=== PATIENT | female | born 1940 | race Caucasian/White ===

== ENCOUNTER → 2018-07-23 11:52 | Outpatient (CLI) | payer MEDICARE, OTHER, SELFPAY ==
[2018-07-23 09:49] VITALS: BMI 25.7
[2018-07-23 14:08] LABS: Absolute Lymphocyte Count 1.84 X10^3/ul (0.83-4.51); Absolute Neutrophil Count 4.8 X10^3/uL (2.0-7.7); Basophil# 0.07 X10^3/uL; Basophil% 0.9 % (0-1); Eosinophil# 0.26 X10^3/uL; Eosinophils% 3.4 % (0-5); Hematocrit 40.6 % (37-47); Hemoglobin 13.2 g/dl (12.0-15.0); Lymphocyte # 1.84 X10^3/ul (4.0); Lymphocyte % 23.8 % (19-41); Mean Corp Hgb Conc 32.5 g/gl (32-36); Mean Corpuscular Hgb 31.1 pg (27.0-32.0); Mean Corpuscular Volume 95.8 fL (81-99); Mean Platelet Vol. 11.5 fl (6.2-12.0); Monocyte# 0.72 X10^3/uL; Monocyte% 9.3 % (0-10); Neutrophil # 4.81 X10^3/uL (2.7-7.7); Neutrophil % 62.3 % (47-70); POSITIVE COUNT NO; POSITIVE DIFFERENTIAL NO; POSITIVE MORPHOLOGY NO; Platelet Count 230 K/mm3 (150-450); RBC Distribution Width CV 13.6 % (11.6-14.6); RBC Distribution Width SD 45.6 fl (35.1-43.9); Red Blood Count 4.24 M/mm3 (4.2-5.4); White Blood Count 7.7 K/mm3 (4.4-11.0)
[2018-07-23 14:22] LABS: Anion Gap 8 (5-15); BUN 21 mg/dL (7-18); BUN/Creat Ratio 15.3 RATIO (10-20); Calcium,Total 9.1 mg/dL (8.5-10.1); Chloride 108 mmol/L (98-107); Creatinine, Serum 1.37 mg/dL (0.55-1.02); EST Glomerular Filtration Rate 40 mL/min (>60); Est Glom Filt Rate - Afr Amer 48 mL/min (>60); Glucose 87 mg/dL (74-106); Sodium Level 143 mmol/L (136-145)
== END ==
PROVIDERS: Family Provider Family Medicine; PCP Family Medicine; Referring Provider Internal Medicine Cardiovascular Disease; Visit Provider Internal Medicine Cardiovascular Disease
DX: R06.09 Other forms of dyspnea (principal); R07.9 Chest pain, unspecified
CPT/HCPCS: 36415; 80048; 85025

== ENCOUNTER 2018-07-30 06:54 | Day surgery (SDC) | payer MEDICARE, OTHER, SELFPAY ==
[2018-07-23 09:49] VITALS: BMI 25.7
--- NOTE | 2018-07-23 11:24 | RAD_ITS ---
STUDY: X-RAY CHEST REASON FOR EXAM: Female, 77 years old. Shortness of breath, pain and cough for one week. TECHNIQUE: PA and lateral chest COMPARISON: 04/30/2017 FINDINGS: Generalized pulmonary hyperlucency and hyperinflation suggesting underlying COPD. Correlate any smoking history. Lungs otherwise acutely clear. Normal cardiomediastinal silhouette, franklin and pleural margins. No acute osseous or upper abdominal process. Scoliosis. Cholecystectomy. RAD/Chest PA and Lateral IMPRESSION: No acute cardiopulmonary process. Electronically Signed: Duane Jones MD at 17:59 EST Tel , Service support ,
[2018-07-29 08:42] VITALS: BMI 25.7
--- NOTE | 2018-07-30 08:39 | CL.D_ITS ---
Patient Name: Mannie PAL Study Date: 07/30/2018 Performing: José Allison MD Ht: 62.99 inches 160 cm : 1940 Wt: 145.51 lbs 66 kg Age: 77 Gender: female BSA: 1.69 PROCEDURE(S) PERFORMED [id number]-MPA/COR/LV CLINICAL PROFILE AND INDICATIONS Indications: Suspected CAD Heart Failure: None Stress/Imaging Stress Test w/SPECT MPI: Yes Result: IndeterminantStress Test with SPECT MPI: Inde terminant CAD Presentations: Symptom unlikely to be ischemic. CONCLUSIONS Normal coronary arteries Normal LV size, wall motion,and systolic function RECOMMENDATIONS Medical therapy DESCRIPTION OF PROCEDURE The patient arrived to the procedure lab. The risks and benefits of the procedure as well as a full d escription of our services here and current unavailability of surgical backup were fully explained to the patient and/or their significant other prior to the catheterization. The Timeout was completed, verifying the correct patient and procedure. The patient's procedural site was prepped and draped in the usual fashion. Local anesthetic was given subcutaneously to right radial region with Lidocaine 2% . Using a modified Seldinger technique, arterial access was obtained via the right radial artery, a 6 Fr sheath was inserted. Left Coronary Artery selective angiography was performed in multiple views u sing a 5 Fr. 4.0 [place] catheter. Right Coronary Artery selective angiography was then performed in mu ltiple views using a 5 Fr. 4.0 [place] catheter. Left Ventriculography was performed in MONTERROSO projection using a 5 Fr. Pigtail catheter. LV to AO pullback pressures were then recorded.The arterial sheath was pulled and a TR Band was applied for hemostasis 14cc air CORONARY ANGIOGRAPHY DOMINANCE: Right Dominant LEFT HEART ASSESSMENT Left Ventricular Ejection Fraction: by LV Gram 60 % Normal LV wall motion Normal Left Ventricular systolic function Normal Left Ventricular systolic function LEFT MAIN: Angiographically normal LEFT ANTERIOR DECENDING ARTERY: Angiographically normal CIRCUMFLEX ARTERY: Angiographically normal RIGHT CORONARY ARTERY: Angiographically normal COMPLICATIONS No Complications PROCEDURE MEDICATIONS Fentanyl 50 mcg IV Versed 1 mg IV Oxygen: 2 L/min via nasal cannula Heparin diluted in 23cc Heparinized saline. Patient given 3.3cc IA of this solution. 07/30/2018 08:18 :37 Verapamil 2.5mg, Ntg 100mcgs, 2000 units of Heparin diluted in 23cc Heparinized saline. Patient give n 3.3cc IA of this solution. 07/30/2018 08:18:37 SUMMARY OF HEMODYNAMIC DATA Time AIR REST ECG 07:17:46 AO 112/64 (85) SA 08:21:00 LV 127/-3, 6 08:26:51 LV 117/-4, 8 08:26:58 LV 99/0, 8 08:29:04 LV 96/0, 8 08:29:11 LVp 113/-1, 9 08:29:16 AOp 117/59 (85) 08:29:21 Signed By José Allison MD On 07/30/2018 08:38:29 José Allison MD
== END 2018-07-30 11:35 | disposition home or self-care (01) ==
LOC: CLSP 06:55
PROVIDERS: Family Provider Family Medicine; PCP Family Medicine; Referring Provider Internal Medicine Cardiovascular Disease; Visit Provider Internal Medicine Cardiovascular Disease
DX: R07.9 Chest pain, unspecified (principal); R06.02 Shortness of breath; E78.5 Hyperlipidemia, unspecified; I12.9 Hypertensive chronic kidney disease with stage 1 through stage 4 chronic kidney disease, or unspecified chronic kidney disease; N18.3 Chronic kidney disease, stage 3 (moderate); I45.10 Unspecified right bundle-branch block; K21.9 Gastro-esophageal reflux disease without esophagitis; K44.9 Diaphragmatic hernia without obstruction or gangrene; I34.0 Nonrheumatic mitral (valve) insufficiency; Z85.038 Personal history of other malignant neoplasm of large intestine; Z86.2 Personal history of diseases of the blood and blood-forming organs and certain disorders involving the immune mechanism; Z87.19 Personal history of other diseases of the digestive system; Z79.82 Long term (current) use of aspirin; Z79.899 Other long term (current) drug therapy
CPT/HCPCS: 71046; 93458; 99152; 99153; J7040; C1769; C1894; Q9967

== ENCOUNTER 2020-01-31 11:14 | Observation (INO) | payer MEDICARE, OTHER, SELFPAY ==
[2019-04-09 15:23] VITALS: BMI 25.3
[2020-01-31 11:15] VITALS: BP 152/86; PULSE 69; RESP 16; TEMP 35.8; O2SAT 95; BMI 23.6
[2020-01-31 11:25] VITALS: BP 167/96; PULSE 65; RESP 17; O2SAT 95
--- NOTE | 2020-01-31 11:25 | CT_ITS ---
STUDY: CT BRAIN WITHOUT CONTRAST REASON FOR EXAM: Female, 79 years old. DIZZINESS -- HX-HTN,COLON CA RADIATION DOSAGE (If Supplied By Facility): CTDIvol = ( 44.99 ) mGy, DLP = ( 745.49 ) mGycm TECHNIQUE: Transaxial CT imaging of the brain was performed without administration of intravenous contrast material. Individualized dose optimization techniques were used for this CT. COMPARISON: No relevant priors. FINDINGS: Normal soft tissue structures. Normal calvarium. Normal size ventricles and extra-axial spaces for the patient''s age. Normal white matter tracts of the cerebral hemispheres. Normal basal ganglia and thalami. Normal brainstem. Normal cerebellum. There is no intracranial hemorrhage. There are no findings of an acute ischemic infarction. Normal visualized paranasal sinuses. CT/Brain/Head without Contrast IMPRESSION: No intracranial hemorrhage or mass effect. Electronically Signed: Guille Nagel MD (Brooks) at 12:22 EDT , Service support ,
--- NOTE | 2020-01-31 11:25 | EKG12_ITS ---
Test Reason : DIZZINESS Blood Pressure : / mmHG Vent. Rate : 061 BPM Atrial Rate : 061 BPM P-R Int : 174 ms QRS Dur : 130 ms QT Int : 454 ms P-R-T Axes : 052 010 048 degrees QTc Int : 457 ms Normal sinus rhythm Right bundle branch block Abnormal ECG Confirmed by JANIS PABON, UMA ([id number]), city editor DAYNA OLIVEIRA ([id number]) on 02/02/2020 9:03:43 AM Referred By: CATHI Confirmed By:UMA BRUCE MD
--- NOTE | 2020-01-31 11:27 | ED.DCSUM_ITS ---
History of Present Illness Informant: Patient, Significant Other Onset: Today Context: Sudden Onset Timing: Continuous Quality: dizziness Location: head Current Severity: Severe Maximum Severity: Severe Worsened by: movement Relieved by: nothing Associated Symptoms: nausea and vomiting Narrative: 79-year-old female presents to the emergency department with dizziness. She has a history of vertigo. She was unable to keep down her meclizine because she keeps vomiting. This started suddenly this morning when she woke up she was laying down in bed she rolled over and then had a sudden onset of room spinning sensation nausea and vomiting. She has tinnitus but this is chronic she states for the last 10 years and it is not worse than her baseline. No numbness tingling or weakness no difficulty with speech no head trauma she is not anticoagulated this feels like her previous vertigo episodes. She has felt well recently no recent illnesses no sick contacts no medication changes. Prior similar symptoms: Yes Recent Illness/Hospitalization: No <Dane Garcia - Last Filed: 01/31/20 14:38> <Farshad Paz - Last Filed: 01/31/20 14:58> Chief Complaint: Dizziness Past Medical History Prior records reviewed: Yes Past Medical History: - - Hypertension hyperlipidemia vertigo Surgical History: - - R hemicolectomy, Cholecystectomy. Lives: With Family Smoking Status: Never smoker Alcohol: None Drugs: None - Family History Maternal Family History: Family History (Last Reviewed 04/09/19 @ 15:[address] José Allison MD) Father Myocardial infarction, Onset Age: 48 Brother CVA (cerebral vascular accident) Mother CVA (cerebral vascular accident) Other CAD (coronary artery disease) Cancer Family History: Reports: - - Maternal family history of CT, coronary disease, colon cancer and stroke. Paternal Family History: Family History (Last Reviewed 04/09/19 @ 15:[address] José Allison MD) Father Myocardial infarction, Onset Age: 48 Brother CVA (cerebral vascular accident) Mother CVA (cerebral vascular accident) Other CAD (coronary artery disease) Cancer Family History: Reports: - - Paternal family history of heart disease with CT age 46. Sibling Family History: Family History (Last Reviewed 04/09/19 @ 15:[address] José Allison MD) Father Myocardial infarction, Onset Age: 48 Brother CVA (cerebral vascular accident) Mother CVA (cerebral vascular accident) Other CAD (coronary artery disease) Cancer Family History: Reports: - - Patient with a brother who passed secondary to a stroke and a sister who passed secondary to cancer noted to be lung and brain, unclear primary. <Dane Garcia - Last Filed: 01/31/20 14:38> - Family History Maternal Family History: Family History (Last Reviewed 04/09/19 @ 15:[address] José Allison MD) Father Myocardial infarction, Onset Age: 48 Brother CVA (cerebral vascular accident) Mother CVA (cerebral vascular accident) Other CAD (coronary artery disease) Cancer Paternal Family History: Family History (Last Reviewed 04/09/19 @ 15:[address] José Allison MD) Father Myocardial infarction, Onset Age: 48 Brother CVA (cerebral vascular accident) Mother CVA (cerebral vascular accident) Other CAD (coronary artery disease) Cancer Sibling Family History: Family History (Last Reviewed 04/09/19 @ 15:[address] José Allison MD) Father Myocardial infarction, Onset Age: 48 Brother CVA (cerebral vascular accident) Mother CVA (cerebral vascular accident) Other CAD (coronary artery disease) Cancer <Farshad Paz - Last Filed: 01/31/20 14:58> - Allergies and Home Meds Allergies/Adverse Reactions: Allergies Penicillins Allergy (Verified 01/31/20 11:25) selling rofecoxib [From Vioxx] Allergy (Verified 01/31/20 11:25) mouth sores Primary Care Physician: Chencho Emery MD [Primary Care Provider] - Review of Systems All systems negative except as indicated General: Denies: Chills, Fever, Sweats Eyes: Denies: Visual changes - bilaterally, Diplopia ENT: Denies: Rhinorrhea, Sore throat Cardiovascular: Denies: Chest pain, Palpitations Respiratory: Denies: Dyspnea, Cough, Dyspnea on exertion Gastrointestinal: Reports: Nausea, Vomiting. Denies: Abdominal pain, Diarrhea, Melena, Hematochezia Genitourinary: Denies: Dysuria, Hematuria, Frequency Musculoskeletal: Denies: Back pain, Swelling, Extremity Pain Skin: Denies: Rash, Wounds Neurological: Denies: Headache, Weakness, Parasthesia, Numbness <Dane Garcia - Last Filed: 01/31/20 14:38> Physical Exam Vital Signs/Narrative: Vital Signs Temp Pulse Resp BP Pulse Ox 01/31/20 11:25 65 17 167/96 H 95 01/31/20 11:15 96.5 F L 69 16 152/86 H 95 Inital Vital Signs reviewed: Yes General: Well nourished, Well developed, No Acute Distress Head: Normocephalic, Atraumatic Eyes: Perrl, EOMI, - - No nystagmus ENT: Moist mucous membranes, No rhinorrhea Neck: Supple, Nontender Cardiovascular: Regular rate, Regular rhythm, No murmurs Respiratory: No distress, CTA bilaterally, Chest nontender Abdomen: Soft, Nontender, Nondistended, Normal bowel sounds Back: Nontender, Normal Inspection Extremities: Nontender, No edema Skin: Normal color, No rash Neurological: Alert, Oriented x3, Cranial nerves II-XII grossly intact, Normal Strength, Normal Sensation Psychological: Normal affect, Normal Mood <Dane Garcia - Last Filed: 01/31/20 14:38> Vital Signs/Narrative: Vital Signs Temp Pulse Resp BP Pulse Ox 01/31/20 14:55 97.8 F 71 16 121/74 H 98 01/31/20 13:26 72 18 136/72 H 96 01/31/20 12:45 63 15 114/66 95 01/31/20 11:25 65 17 167/96 H 95 01/31/20 11:15 96.5 F L 69 16 152/86 H 95 <Farshad Paz - Last Filed: 01/31/20 14:58> Diagnostic/Tx/Re-eval Impressions Brain CT 01/31/20 11:25 IMPRESSION: No intracranial hemorrhage or mass effect. Electronically Signed: Guille Nagel MD (Brooks) at 12:22 EDT , Service support , 01/31/20 11:25 Brain/Head without Contrast [CT] Stat Laboratory Results 01/31/20 01/31/20 01/31/20 11:40 11:40 12:25 WBC 7.3 RBC 3.87 L Hgb 12.3 Hct 36.0 L MCV 93.0 MCH 31.8 MCHC 34.2 RDW Std Deviation 43.3 RDW Coeff of Raciel 12.8 Plt Count 261 MPV 9.9 Immature Gran % (Auto) 0.300 Neut % (Auto) 57.0 Lymph % (Auto) 31.2 [place] % (Auto) 8.7 Eos % (Auto) 1.6 Baso % (Auto) 1.2 H Absolute Neuts (auto) 4.2 Absolute Lymphs (auto) 2.27 Nucleated RBC % 0 Sodium 139 Potassium 3.9 Chloride 110 H Carbon Dioxide 24.0 Anion Gap 5 BUN 18 Creatinine 1.39 H Estim Creat Clear Calc 29.05 Est GFR (MDRD) Af Amer 47 L Est GFR (MDRD) Non-Af 39 L BUN/Creatinine Ratio 12.9 Glucose 120 H Calcium 9.1 Urine Color Yellow Urine Clarity Clear Urine pH 7.0 Ur Specific [place] 1.010 Urine Protein Negative Urine Glucose (UA) Normal Urine Ketones Negative Urine Occult Blood Negative Urine Nitrite Negative Urine Bilirubin Negative Urine Urobilinogen Normal Ur Leukocyte Esterase Negative Urine RBC 0 SEEN Urine WBC 0 SEEN Ur Squamous Epith Cells 0-5 SEEN Urine Bacteria 0 SEEN Urine Mucus 0 SEEN - Rhythm Strip Rhythm Strip: Sinus Rhythm Rate: 60 Ectopy: None - EKG Initial EKG Interpretation: Sinus Rhythm, No Acute Injury Pattern, RBBB Prior: Unchanged - Medical Decision Making Neurological exam is nonfocal. She has a normal stable vital signs. Patient was initially treated with a dose of IV Zofran and IV Ativan 0.[address] brain showed no acute findings. Laboratory work-up was unremarkable. Urinalysis unremarkable. Patient continued to feel dizzy and was vomiting. Given another dose of 1 mg IV Ativan. Repeat evaluation patient has no improvement. I gave her a dose of Zofran IV an d oral meclizine. Repeat evaluation no improvement at this point I discussed with the patient that she will require admission for intractable vertigo and she is agreeable. I spoke with the hospitalist. <Dane Garcia - Last Filed: 01/31/20 14:38> - Medical Decision Making Patient with a history of vertigo rolled over this morning and began to have a dizzy sensation and vomiting. Attempted relief with meclizine failed. Patient came to the emergency department received several doses of Ativan as well as meclizine. She continues to have vomiting and is unable to ambulate. Plan is admission. This point this appears to be a peripheral vertigo based on physical exam and not central. + Camas-Hallpike. History of same. I performed a history and physical examination of the patient and discussed management plan with the physician funeral assistant. I reviewed the physician funeral assistant's note and agree with the documented findings and plan of care. Farshad Paz DO, MS <Farshad Paz - Last Filed: 01/31/20 14:58> ED Disposition <Dane Garcia - Last Filed: 01/31/20 14:38> <Farshad Paz - Last Filed: 01/31/20 14:58> - Plan for ED Patient: Disposition: Acute Care [facility] Diagnosis: Intractable vertigo, Right bundle branch block (RBBB), Essential (primary) hypertension, Hyperlipidemia Referrals: Chencho Emery MD [Primary Care Provider] -
[2020-01-31] MEDS: Ondansetron 4 MG/2 ML Vial IV ×2 (11:36→13:21)
[2020-01-31] MEDS: LORazepam 2 MG/ML Syringe 0.5 MG IV (11:38)
[2020-01-31 11:50] LABS: Absolute Lymphocyte Count 2.27 X10^3/uL (0.83-4.51); Absolute Neutrophil Count 4.2 X10^3/uL (2.0-7.7); Basophil# 0.09 X10^3/uL; Basophil% 1.2 % (0-1); Eosinophil# 0.12 X10^3/uL; Eosinophils% 1.6 % (0-5); Hemoglobin 12.3 g/dL (12.0-15.0); Lymphocyte # 2.27 X10^3/ul (4.0); Lymphocyte % 31.2 % (19-41); Mean Corp Hgb Conc 34.2 g/dL (32-36); Mean Corpuscular Hgb 31.8 pg (27.0-32.0); Mean Platelet Vol. 9.9 fl (6.2-12.0); Monocyte# 0.63 X10^3/uL; Monocyte% 8.7 % (0-10); NRBC Flagged by Analyzer 0 % (0-5); Neutrophil # 4.15 X10^3/uL (2.7-7.7); Platelet Count 261 K/mm3 (150-450); RBC Distribution Width CV 12.8 % (11.6-14.6); RBC Distribution Width SD 43.3 fl (35.1-43.9); Red Blood Count 3.87 M/mm3 (4.2-5.4); White Blood Count 7.3 K/mm3 (4.4-11.0)
[2020-01-31 12:27] LABS: Anion Gap 5 (5-15); BUN 18 mg/dL (7-18); BUN/Creat Ratio 12.9 RATIO (10-20); Calcium,Total 9.1 mg/dL (8.5-10.1); Chloride 110 mmol/L (98-107); Creatinine, Serum 1.39 mg/dL (0.55-1.02); EST Glomerular Filtration Rate 39 mL/min (>60); Est Glom Filt Rate - Afr Amer 47 mL/min (>60); Estimated Creatinine Clearance 29.05 ml/min; Glucose 120 mg/dL (74-106); Potassium 3.9 mmol/L (3.5-5.1); Sodium Level 139 mmol/L (136-145)
[2020-01-31 12:29] LABS: Bacteria 0 SEEN /hpf (None Seen); Mucous, Urine 0 SEEN /hpf (<or=2+); Red Blood Cells-Urine 0 SEEN /hpf (0-5); White Blood Cells 0 SEEN /hpf (0-5)
[2020-01-31 12:30] LABS: Color, Urine Yellow (Yellow); Glucose, Dipstick Normal (Normal); Ketone-Dipstick Negative (Negative); Leukocyte Esterase-Dipstick Negative /ul (Negative); Nitrite-Dipstick Negative (Negative); Occult Blood-Urine Negative /ul (Negative); Protein-Dipstick Negative (Negative); Urine Bilirubin Dipstick Negative (Negative); Urine Clarity Clear (Clear); Urine Urobilinogen Normal (Normal)
[2020-01-31 12:35] LABS: Squamous Epithelial Cells - UA 0-5 SEEN /hpf (5-10)
[2020-01-31] MEDS: LORazepam 2 MG/ML Syringe 1 MG IV (12:37)
[2020-01-31 12:45] VITALS: BP 114/66; PULSE 63; RESP 15; O2SAT 95
[2020-01-31] MEDS: Meclizine HCl 25 MG Tablet PO (13:24)
[2020-01-31 13:26] VITALS: BP 136/72; PULSE 72; RESP 18; O2SAT 96
[2020-01-31] MEDS: diazePAM 5 MG Tablet 2.5 MG PO (14:50)
[2020-01-31] MEDS: proMETHazine 25 MG/ML Syringe 6.25 MG IV (14:50)
--- NOTE | 2020-01-31 14:51 | PCM.HP.STD ---
Problem List (1) Vertigo Status: Acute (2) Right bundle branch block (RBBB) Status: Chronic (3) Hyperlipidemia Status: Chronic (4) Essential (primary) hypertension Status: Chronic History of Present Illness Date of Admission: 01/31/20 Chief Complaint: dizziness The patient is a 79 year old F who was in her normal state of health until this morning where patient was very dizzy. Patient felt the room spinning and stated that in the corners of her eyes she saw some flashes of light but denied any flashes of light within her central field of vision. Patient states that movement makes it worse and she has been having nausea and vomiting. Patient received meclizine without help. Patient also received lorazepam with minimal effect. The hospitalist service was contacted for admission. Patient has had a history of dizziness and is on meclizine as needed at home but is never been to this severe degree. [] Past Medical History Past Medical History (Chronic Problems): Chronic Problems (Last Reviewed 04/09/19 @ 15:[address] José Allison MD) Right bundle branch block (RBBB) (Chronic) Hyperlipidemia (Chronic) Essential (primary) hypertension (Chronic) Medical History: Medical History (Last Reviewed 01/31/20 @ 14:[address] 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 [Ecotrin] 81 mg PO DAILY@0800 tab 05/01/17 hydrochlorothiazide 25 mg tablet 25 mg PO DAILY #90 tab 04/09/19 lisinopril 20 mg tablet 20 mg PO DAILY #90 tab 04/09/19 meclizine 12.5 mg tablet 12.5 mg PO BID-TID PRN 04/09/19 multivit with 1 tab PO DAILY 04/09/19 npvrwfnc-edpq-UA-lutein 8 mg iron-400 mcg-300 mcg tablet omeprazole 20 mg capsule,delayed 20 mg PO DAILY #90 cap 04/09/19 release Carvedilol 25 mg PO BID 01/31/20 Surgical History: Surgical History (Last Reviewed 04/09/19 @ 15:[address] José Allison MD) H/O right hemicolectomy Z90.49 History of left heart catheterization Onset Date: 07/30/18 Z98.890 Hx of cholecystectomy Z90.49 Surgical History: - - R hemicolectomy, Cholecystectomy. Psychiatric History: No pertinent psych hx SPINE SPECIALIST History: No pertinent SPINE SPECIALIST history Lives: With Family Smoking Status: Never smoker Alcohol: None Drugs: None - *Family History Maternal Family History: Family History (Last Reviewed 01/31/20 @ 14:[address] Nicholas Mclain DO) Father Myocardial infarction, Onset Age: 48 Brother CVA (cerebral vascular accident) Mother CVA (cerebral vascular accident) Other CAD (coronary artery disease) Cancer History Items: - - Maternal family history of [place], coronary disease, colon cancer and stroke. Paternal Family History: Family History (Last Reviewed 01/31/20 @ 14:[address] Nicholas Mclain DO) Father Myocardial infarction, Onset Age: 48 Brother CVA (cerebral vascular accident) Mother CVA (cerebral vascular accident) Other CAD (coronary artery disease) Cancer History Items: - - Paternal family history of heart disease with [place] age 46. Sibling Family History: Family History (Last Reviewed 01/31/20 @ 14:[address] Nicholas Mclain DO) Father Myocardial infarction, Onset Age: 48 Brother CVA (cerebral vascular accident) Mother CVA (cerebral vascular accident) Other CAD (coronary artery disease) Cancer History Items: - - Patient with a brother who passed secondary to a stroke and a sister who passed secondary to cancer noted to be lung and brain, unclear primary. Review of Systems Constitutional: Denies: Anorexia, Chills, Fever Eyes: Reports: - - room spinning. Denies: Blurred vision, Double vision HEENT: Denies: Head Aches, Sinus Congestion, Sinus Drainage Cardiovascular: Denies: Chest Pain, Palpitations Respiratory: Denies: Cough, Shortness of breath at rest, Sputum production Gastrointestinal: Denies: Abdominal Pain, Nausea, Vomiting Genitourinary: Denies: Dysuria Musculoskeletal: Denies: Joint Pain, Joint Tenderness Skin: Denies: Rash, Wounds Neurological: Denies: Numbness, Tingling, Focal weakness Psychiatric: Denies: Anxiety, Depression Hematologic/ Lymphatic: Denies: Easy Bruising, Easy Bleeding, Hx of blood clot Comment: All review of systems were negative except as mentioned above in the history of present illness and the other review of systems. VTE Information - Inpt Only VTE Present on Admission: No VTE Mechan Device Prophylaxis: None VTE Pharm Prophylaxis ordered?: No Reason prophylaxis not ordered:: Treatment Not Indicated Patient Problems: Active and Suspected Problems (Last Reviewed 04/09/19 @ 15:[address] José Allison MD) Vertigo (Acute) - Physical Exam Vitals/I&O's: Vital Signs Temp Pulse Resp BP Pulse Ox 35.8 C L 72 18 136/72 H 96 01/31/20 11:15 01/31/20 13:26 01/31/20 13:26 01/31/20 13:26 01/31/20 13:26 Oxygen Delivery Method Room Air Weight: 64.4 kg Body Mass Index (BMI) 23.6 Intake and Output for Last 24 Hours 01/29/20 01/30/20 01/31/20 23:59 23:59 23:59 Intake Total 500 / 500 Balance 500 / 500 General: Alert, No apparent distress HEENT: Atraumatic, PERRLA, EOMI, Normocephalic, - - Slight left lateral nystagmus Oral: Moist Mucosa, No Gingival or Mucosal Lesions/ Ulcerations Neck: No Nodes, Thyroid Normal Size and Texture Lungs: Clear to auscultation, Normal air movement, No rhonchi, No wheeze, No rales Cardiovascular: Regular rate, Regular Rhythm, Normal S1, Normal S2, No murmurs Abdomen: Bowel Sounds Present, Soft, Non Tender, Non-Distended, No Hepato-splenomegaly Extremities: No edema, No Calf Tenderness Skin: No rashes, No breakdown Neurological: Cranial nerves II-XII grossly intact, - - Lyons-Hallpike was performed and patient was able to lay flat with the left side but when but then started having increased dizziness and then having nausea and then subsequent vomiting. Was only attempted on the left and not on the right given that circumstance. Psych/Mental Status: Normal Affect, Appropriate Laboratory Results 01/31/20 11:40: WBC 7.3, RBC 3.87 L, Hgb 12.3, Hct 36.0 L, MCV 93.0, MCH 31.8, MCHC 34.2, RDW Std Deviation 43.3, RDW Coeff of Raciel 12.8, Plt Count 261, MPV 9.9, Immature Gran % (Auto) 0.300, Neut % (Auto) 57.0, Lymph % (Auto) 31.2, [place] % (Auto) 8.7, Eos % (Auto) 1.6, Baso % (Auto) 1.2 H, Absolute Neuts (auto) 4.2, Absolute Lymphs (auto) 2.27, Nucleated RBC % 0 01/31/20 11:40: Sodium 139, Potassium 3.9, Chloride 110 H, Carbon Dioxide 24.0, Anion Gap 5, BUN 18, Creatinine 1.39 H, Estim Creat Clear Calc 29.05, Est GFR (MDRD) Af Amer 47 L, Est GFR (MDRD) Non-Af 39 L, BUN/Creatinine Ratio 12.9, Glucose 120 H, Calcium 9.1 01/31/20 12:25: Urine Color Yellow, Urine Clarity Clear, Urine pH 7.0, Ur Specific [place] 1.010, Urine Protein Negative, Urine Glucose (UA) Normal, Urine Ketones Negative, Urine Occult Blood Negative, Urine Nitrite Negative, Urine Bilirubin Negative, Urine Urobilinogen Normal, Ur Leukocyte Esterase Negative, Urine RBC 0 SEEN, Urine WBC 0 SEEN, Ur Squamous Epith Cells 0-5 SEEN, Urine Bacteria 0 SEEN, Urine Mucus 0 SEEN Clinical Impression(s) from Imaging Studies Brain CT 01/31/20 11:25 IMPRESSION: No intracranial hemorrhage or mass effect. Electronically Signed: Guille Nagel MD (Brooks) at 12:22 EDT , Service support , Assessment/Plan All Active Problems (Last Reviewed 04/09/19 @ 15:[address] José Allison MD) Vertigo (Acute) 1. Acute vertigo: Exam consistent with a benign paroxysmal positional vertigo. Head CT here was negative. Given that position is exacerbating her symptoms, no feel any additional neurological work-up is necessary at this time. Plan is to treat her for this vertigo with meclizine, antiemetics and therapy for vestibular rehab. 2. Hypertension: Continue with carvedilol, HCTZ and lisinopril. 3. VTE prophylaxis: Low risk as patient is observation status and not indicated. OBSV E&M: [id number] Initial observation care L3
[2020-01-31 14:55] VITALS: BP 121/74; PULSE 71; RESP 16; TEMP 36.6; O2SAT 98
[2020-01-31 15:40] VITALS: BMI 24.8
[2020-01-31] MEDS: 0.9% Normal Saline 1,000 ML 150 ML IV (18:08)
[2020-01-31 20:52] VITALS: BP 134/74; PULSE 73; RESP 16; TEMP 37.1; O2SAT 98
[2020-01-31] MEDS: Carvedilol 25 MG Tablet PO (21:14)
[2020-01-31] MEDS: Meclizine 12.5 MG Tablet PO (21:14)
[2020-02-01 02:50] VITALS: BP 111/60; PULSE 73; RESP 18; TEMP 36.8; O2SAT 96
[2020-02-01 08:40] VITALS: BP 133/78; PULSE 71; RESP 18; TEMP 36.6; O2SAT 93
[2020-02-01] MEDS: Ondansetron 4 MG/2 ML Vial IV (08:42)
[2020-02-01] MEDS: 0.9% Saline Lock 10 ML Syringe IV (08:42)
[2020-02-01] MEDS: Acetaminophen 325 MG Tablet 650 MG PO (08:44)
[2020-02-01] MEDS: Meclizine 12.5 MG Tablet PO (08:44)
[2020-02-01] MEDS: Carvedilol 25 MG Tablet PO (08:46)
[2020-02-01] MEDS: Pantoprazole Sodium 20 MG Tablet PO (08:46)
--- NOTE | 2020-02-01 10:04 | NURSING ---
after AM meds were given at 0830, pt immediately vomited. clear liquids with no pills noted. will continue to monitor.
--- NOTE | 2020-02-01 14:18 | DCINST_ITS ---
- Discharge Diagnoses Current Active Problems: Current Active and Chronic Problems (Last Reviewed 01/31/20 @ 14:[address] Nicholas Mclain, DO) Vertigo (Acute) Right bundle branch block (RBBB) (Chronic) Hyperlipidemia (Chronic) Essential (primary) hypertension (Chronic) You will use the following diet at home:: Cardiac Your food should be the consistency of: Regular Your liquids should be the consistency of: Regular/Thin Discharge Activity: Use Walker Weight Bearing Status: Weight bearing as tolerated Call your doctor if you observe: Dizziness, Fainting spells Instructions: ED Vertigo Unspecified Allergies/Adverse Reactions: Allergies Penicillins Allergy (Verified 01/31/20 11:25) selling rofecoxib [From Vioxx] Allergy (Verified 01/31/20 11:25) mouth sores Medications to take at Discharge Aspirin E.C. [Ecotrin] 81 mg PO DAILY@0800 tab 05/01/17 hydrochlorothiazide 25 mg tablet 25 mg PO DAILY #90 tab 04/09/19 lisinopril 20 mg tablet 20 mg PO DAILY #90 tab 04/09/19 meclizine 12.5 mg tablet 12.5 mg PO BID-TID PRN 04/09/19 multivit with wellspud-pghh-IP-lutein 8 mg iron-400 mcg-300 mcg tablet 1 tab PO DAILY 04/09/19 omeprazole 20 mg capsule,delayed release 20 mg PO DAILY #90 cap 04/09/19 Carvedilol 12.5 mg PO BID 01/31/20 Primary Care Physician: Chencho Emery MD [Primary Care Provider] - Please follow up with your Primary Care Physician in: 1-2 weeks Test Results: Test results from this visit will be discussed in further detail at your follow- up appointment, if applicable. Please Follow Up With: Marco Powers MD When: 1-2 weeks for follow up for Vertigo Proposed Discharge Date: 02/01/20
--- NOTE | 2020-02-01 14:20 | DS.PCM_ITS ---
Discharge Date and Diagnosis - Problem List Patient Problems: Active and Suspected Problems (Last Reviewed 01/31/20 @ 14:[address] iNcholas Mclain DO) Vertigo (Acute) Date of Admission: 01/31/20 Date of Discharge: 02/01/20 - Primary Discharge Diagnosis Acute Problems: Active Problems (Last Reviewed 01/31/20 @ 14:[address] Nicholas Mclain DO) Vertigo (Acute) - Secondary Discharge Diagnosis Chronic Problems: Chronic Problems (Last Reviewed 01/31/20 @ 14:[address] Nicholas Mclain DO) Right bundle branch block (RBBB) (Chronic) Hyperlipidemia (Chronic) Essential (primary) hypertension (Chronic) Hospital Course and Treatment Imaging Results: Diagnostic Data Brain CT 01/31/20 11:25 IMPRESSION: No intracranial hemorrhage or mass effect. Electronically Signed: Guille Nagel MD (Brooks) at 12:22 EDT , Service support , Operations: None Procedures: None Summary of Care Provided: The patient is a 79 year old F with a past medical history of hypertension and hyperlipidemia was admitted through the ED on 01/31/2020 with a complaint of dizziness. She felt the room spinning and so some flashes of light in the corner of her eyes. Dizziness was aggravated by movement and said as soon as she moves her head she got dizzy and she had assisted nausea and vomiting. She received meclizine but this did not help when she came into the ED. Lorazepam also did not help so she was admitted to be managed for dizziness likely due to BPPV. Patient says she had a history of dizziness and BPPV and had been following up with ENT on outpatient basis. ET of the brain was negative for any acute intracranial pathology. She was admitted and put on meclizine and antiemetics and PT OT were also consulted. Patient symptom subsequently improved markedly and she wanted to go home the next day. She was evaluated by physical therapy and deemed to need a walker to help with her ambulation. Patient remained stable and was discharged home on 02/01/2020 with a prescription for a walker and also to have outpatient physical therapy vestibular therapy. She is follow-up with her primary care doctor and also to follow-up with ENT. Patient seen and examined prior to discharge. She had no complaints and felt well and was eager to be discharged. Review of systems otherwise negative. Labs and vitals reviewed. Home medication reviewed and reconciled. O/e: [] Vital Signs Temp Pulse Resp BP Pulse Ox 97.8 F 71 18 133/78 H 93 02/01/20 08:40 02/01/20 08:40 02/01/20 08:40 02/01/20 08:40 02/01/20 08:40 General: Alert, No apparent distress HEENT: Atraumatic, PERRLA, EOMI, Normocephalic, Oral: Moist Mucosa, No Gingival or Mucosal Lesions/ Ulcerations Neck: No Nodes, Thyroid Normal Size and Texture Lungs: Clear to auscultation, Normal air movement, No rhonchi, No wheeze, No rales Cardiovascular: Regular rate, Regular Rhythm, Normal S1, Normal S2, No murmurs Abdomen: Bowel Sounds Present, Soft, Non Tender, Non-Distended, No Hepato-splenomegaly Extremities: No edema, No Calf Tenderness Skin: No rashes, No breakdown Neurological: Cranial nerves II-XII grossly intact, power 5/5/ in all extremities. Psych/Mental Status: Normal Affect, Appropriate Plan is for discharge home today. She is to continue taking meclizine for her dizziness and BPPV. Patient Problems: Active and Suspected Problems (Last Reviewed 01/31/20 @ 14:[address] Nicholas Mclain, DO) Vertigo (Acute) - Physical Exam Vitals/I&O's: Vital Signs Temp Pulse Resp BP Pulse Ox 97.8 F 71 18 133/78 H 93 02/01/20 08:40 02/01/20 08:40 02/01/20 08:40 02/01/20 08:40 02/01/20 08:40 Oxygen Delivery Method Room Air Weight: 149 lb 4.047 oz Body Mass Index (BMI) 24.8 Intake and Output for Last 24 Hours 01/30/20 01/31/20 02/01/20 23:59 23:59 23:59 Intake Total 650 / 750 1400 / 1400 Output Total 850 / 850 Balance 650 / 250 550 / 550 Current Medications Acetaminophen (Tylenol) 650 mg PO Q6H PRN PRN PRN Reason: Pain Score 1-10/Temp > 100.7 F Last Admin: 02/01/20 08:44 Dose: 650 mg Documented by: Acetaminophen (Tylenol) 650 mg RECTAL Q4H PRN PRN PRN Reason: Pain Score 1-10/Temp > 100.7 F Aspirin (Ecotrin) 81 mg PO DAILY@0800 REPLACED BY [facility] Last Admin: 02/01/20 08:45 Dose: Not Given Documented by: Carvedilol (Coreg) 25 mg PO BID REPLACED BY [facility] Last Admin: 02/01/20 08:46 Dose: 25 mg Documented by: Hydrochlorothiazide (Hctz) 25 mg PO DAILY REPLACED BY [facility] Lisinopril (Zestril) 20 mg PO DAILY REPLACED BY [facility] Meclizine HCl (Antivert) 12.5 mg PO Q8H PRN PRN PRN Reason: Vertigo Last Admin: 02/01/20 08:44 Dose: 12.5 mg Documented by: Multivitamins/Minerals (Multivitamin With Minerals (Bkc)) 1 tablet PO DAILY@0800 REPLACED BY [facility] Ondansetron HCl (Zofran) 4 mg IV Q8H PRN PRN PRN Reason: NAUSEA/VOMITING Last Admin: 02/01/20 08:42 Dose: 4 mg Documented by: Pantoprazole Sodium (Protonix) 20 mg PO DAILY REPLACED BY [facility] Last Admin: 02/01/20 08:46 Dose: 20 mg Documented by: Prochlorperazine Edisylate (Compazine Iv) 5 mg IV Q4H PRN PRN PRN Reason: Breakthrough nausea/vomiting Sodium Chloride () 10 - 40 ml IV UD PRN PRN Reason: SALINE FLUSH Last Admin: 02/01/20 08:42 Dose: 10 ml Documented by: Discharge Diet: Low fat/ Low Cholesterol Discharge Activity: Use Walker Weight Bearing Status: Weight bearing as tolerated Call your doctor if you observe: Dizziness, Fainting spells Home Medications: Medications to take at Discharge Aspirin E.C. [Ecotrin] 81 mg PO DAILY@0800 tab 05/01/17 hydrochlorothiazide 25 mg tablet 25 mg PO DAILY #90 tab 04/09/19 lisinopril 20 mg tablet 20 mg PO DAILY #90 tab 04/09/19 meclizine 12.5 mg tablet 12.5 mg PO BID-TID PRN 04/09/19 multivit with wycbrbge-pfpk-KN-lutein 8 mg iron-400 mcg-300 mcg tablet 1 tab PO DAILY 04/09/19 omeprazole 20 mg capsule,delayed release 20 mg PO DAILY #90 cap 04/09/19 Carvedilol 12.5 mg PO BID 01/31/20 Primary Care Physician: Chencho Emery MD [Primary Care Provider] - Please follow up with your Primary Care Physician in: 1-2 weeks Please Follow Up With: Marco Powers MD When: 1-2 weeks for follow up for Vertigo Patient Instructions: ED Vertigo Unspecified Disposition: Home Minutes spent on discharge:: 40 Patient Condition:: Stable Medical Necessity - Tobacco Use Smoking Status: Never smoker Meaningful Use Info Meaningful Use Diagnoses (Choose all that apply): None applicable OBSV E&M: 89203 Observation care discharge
--- NOTE | 2020-02-01 14:27 | CASEMGMT ---
MILLICENT GRIJALVA updated that patient will need walker and outpatient vestibular therapy. Scripts received. MILLICENT GRIJALVA in to discuss DME company preferences with patient and [place] [facility] [facility] and arranged for walker to be delivered to patient's room prior to discharge. Patient updated that she can take script for outpatient therapy to her choice of facility.
[2020-02-01 14:50] VITALS: BP 127/75; PULSE 65; RESP 16; TEMP 36.6; O2SAT 99
[2020-02-01] MEDS: Lisinopril 20 MG Tablet PO (14:50)
[2020-02-01] MEDS: Multivitamins,Ther W-Minerals Tablet 1 TABLET PO (14:50)
[2020-02-01] MEDS: hydroCHLOROthiazide 25 MG Tablet PO (14:50)
== END 2020-02-01 16:30 | disposition home or self-care (01) ==
LOC: ED 14:42 → MS3 15:17
PROVIDERS: Emergency Provider Physician Assistant Medical; PCP Family Medicine; Visit Provider Student in an Organized Health Care Education/Training Program
DX: R42 Dizziness and giddiness (principal); R11.2 Nausea with vomiting, unspecified; E78.5 Hyperlipidemia, unspecified; I45.10 Unspecified right bundle-branch block; I12.9 Hypertensive chronic kidney disease with stage 1 through stage 4 chronic kidney disease, or unspecified chronic kidney disease; N18.3 Chronic kidney disease, stage 3 (moderate); K21.9 Gastro-esophageal reflux disease without esophagitis; K44.9 Diaphragmatic hernia without obstruction or gangrene; E73.9 Lactose intolerance, unspecified; Z79.899 Other long term (current) drug therapy; Z79.82 Long term (current) use of aspirin; Z85.038 Personal history of other malignant neoplasm of large intestine
CPT/HCPCS: 70450; 80048; 81001; 85025; 93005; 96361; 96374; 96375; 96376; 97161; 99218; 99285; J7030; A4216; G0378; J2405

== ENCOUNTER → 2020-02-26 10:00 | Outpatient (CLI) | payer MEDICARE, OTHER, SELFPAY ==
[2020-01-31 15:40] VITALS: BMI 24.8
--- NOTE | 2020-02-26 10:16 | MRI_ITS ---
STUDY: MRI BRAIN WITHOUT CONTRAST (ATTENTION INTERNAL AUDITORY CANALS - I.A.C.''s) REASON FOR EXAM: Female, 79 years old. LEFT TINNITUS AND DIZZINESS no contrast d/t low gfr TECHNIQUE: Standardized multiplanar fat and water weighted pulse sequences were obtained. COMPARISON: None. FINDINGS: Normal bilateral temporal bones. Normal bilateral internal auditory canals. There is no demonstrated intracanalicular or cisternal vestibular schwannoma (acoustic neuroma). There is no enhancement of the bilateral VIIth or VIIIth cranial nerves. Normal bilateral cochlea, vestibules and semicircular canals. There is mild cerebral atrophy with widening of the extra-axial spaces and ventricular dilatation. There are a limited number of small white matter hyperintensities, distributed throughout the deep white matter tracts of the cerebral hemispheres, consistent with mild chronic white matter ischemic changes. There is no evidence for recent intracranial ischemia or other cause of cytotoxic edema on diffusion weighted imaging (DWI). No hydrocephalus or midline shift. Normal bilateral basal ganglia. Normal thalami. Normal flow voids within the major intracranial circulation suggesting patency by spin echo criteria. There is no extra-axial fluid accumulation. Normal sella turcica, pituitary gland, infundibular stalk, optic chiasm and hypothalamus. Normal tectal plate and pineal gland. Normal midbrain, bert and medulla. Normal cerebellum. Normal basal cisterns. No demonstrated orbital abnormality, within the constraints of a routine brain study. Normal visualized paranasal sinuses. Normal calvarium and skull base. Normal visualized soft tissue structures. Normal visualized upper cervical spine. MRI/Brain without Contrast IMPRESSION: 1. Mild involutional and chronic ischemic changes of the brain, as described above. 2. No demonstrated acute or significant process of the internal auditory canal or posterior fossa 3. No hydrocephalus or midline shift. 4. No demonstrated intra-axial or extra-axial fluid collection. Electronically Signed: Kian Jacobs MD at 18:28 EDT , Service support ,
== END ==
PROVIDERS: PCP Family Medicine; Referring Provider Otolaryngology; Visit Provider Otolaryngology
DX: H93.12 Tinnitus, left ear (principal); R42 Dizziness and giddiness
CPT/HCPCS: 70551

== ENCOUNTER 2020-03-23 13:00 | Outpatient (RCR) | payer MEDICARE, OTHER, SELFPAY ==
[2020-01-31 15:40] VITALS: BMI 24.8
--- NOTE | 2020-02-29 10:02 | HP.PTEVAL ---
Patient's Visit Information MARIELY PAL is a 79 year old F referred to Physical Therapy by Dr. Marco Powers MD with a diagnosis of dizziness. Date of Evaluation: 02/29/20 Physical Therapist: HAYDER Winters - Visit Plan Frequency: 2x /Week Duration: 6 Weeks Plan: 2X/ week for 6 weeks for vestibular inputs (horizontal and vertical head turns on compliant and non compliant surfaces), head movements, gait training with HEP - Subjective Pt reports that 01-30 she rolled over in bed and she was spinning and she was getting big flashes of light in B eyes. After awhile she got up and it happened twice in the bathroom. They took her into the hospital. She does not remember much. She remembers that she vomited. She does not remember anything in the hospital until that Saturday morning. She has dizziness that comes and goes. She lives in a mobile home and she can grab things so she feels secure. One day she can get up and move and other days she just sits. It is only when she is sitting. Rolling over in bed dizziness has not been there. They did an MRI but does not have the results yet. She has had dizziness for years now. She has a fear of falling. She hangs onto her . She has not fallen in the past. The dizziness that she had on the lasted less than a minute and has not happened since that day. The dizziness that she currently feeling is lightheadedness... no room spinning... She reports that Dr Powers believes that her crystals are in line now. Pt reports that she has a lot of stress - Objective Gait: walks with very guarded gait pattern with decreased stride with occ veering. LE MMT: B hip abd 4-/5, R hip flex 4-/5 and L 3+/5, R knee flex 4-/5 and L 3-/5, R knee ext 4-/5 and L 3+/5. Pt is able to heel and toe raise with UE support. Patella DTR's 0/3 B. smooth pursuit vertical (slight tired feeling in eyes) and slight jumpiness seen for 30 seconds. Smooth pursiut horizontal for 30 sec pt had some increase feeling but hard to describe. Head and eyes moving horizontal together pt had increase bsckground spinning after 20 seconds. Head and eyes moving vertical together pt had a little bit not like horizontal. CATSIB 41. FGA: 11 - Balance Scores Functional Gait Assessment Score: 11 % Disability: 63.3400 CATSIB Score (Max score 120 seconds): 41 - Goals Goal 1:: I HEP Goal Time Frame: 4-6 Weeks Goal 2:: Increase FGA by 5 points to decrease fall risk (score at eval was 11) Goal Time Frame: 4-6 Weeks Goal 3:: Increase CATSIb by 20 points to decrease fall risk (score was 41 at eval) Goal Time Frame: 4-6 Weeks Goal 4:: Be able to walk with vertical and horizontal head turns with CGA without dizziness Goal Time Frame: 4-6 Weeks Goal 6:: Pt to say she has 50% reduction in dizziness Goal Time Frame: 4-6 Weeks - Rehabilitation Potential Rehabilitation Potential: Good - Anticipated Interventions Patient/Client Instruction: Educate patient on: Plan of Care For the Purpose of:: To improve ability to perform ADL's, To increase tolerance to activity/condition/position, To improve performance and independence with ADL's, To decrease level of supervision to perform tasks, To improve ability of physical actions for home/community/work/leisure, To improve gait and locomotor functions, To improve balance, To improve safety with gait Therapeutic Exercise to Include: Strength training, Endurance training, Balance training, Gait and locomotor training For the Purpose of:: To improve ability to perform ADL's, To increase tolerance to activity/condition/position, To improve performance and independence with ADL's, To decrease level of supervision to perform tasks, To improve ability of physical actions for home/community/work/leisure, To improve gait and locomotor functions, To improve balance, To improve safety with gait Functional Training to Include: Gait training For the Purpose of:: To improve gait and locomotor functions, To improve safety with gait Thank you for the opportunity to evaluate your patient. For Medicare and Medicare HMO plans, please review the plan of care and approve it. It will need to be FAXED BACK to us at [phone] for Medicare purposes. For Medicare only, by signing this I certify the plan of care. Please let me know if there are questions or concerns regarding this plan of care. Physician Signature: Date:
--- NOTE | 2020-03-23 13:31 | HP.PTDCSUM ---
It has been my pleasure to treat MARIELY PAL referred by Dr. Marco Powers MD, with the diagnosis of dizziness for a total of 8 visit(s). Discharge Date: 03/23/20 Please see the following information for a summary of their discharge status. Subjective: Pt reports that she will miss PT. Pt has no dizziness anymore. L knee Pain Intensity (Out of 10): 8 B leg achiness Pain Intensity (Out of 10): 4 % Improvement: 100 Objective/Function: CATSIB 120/120. FGA 26. Went over HEP: Standing heel and toe raises. Opparm and leg in standing. Step ups with knee raise. Standing hip flexion. walking with head turns Goal 1:: I HEP Goal Progress: Goal Met Goal 2:: Increase FGA by 5 points to decrease fall risk (score at eval was 11) Goal Progress: Goal Met Goal 3:: Increase CATSIb by 20 points to decrease fall risk (score was 41 at eval) Goal Progress: Goal Met Goal 4:: Be able to walk with vertical and horizontal head turns with CGA without dizziness Goal Progress: Goal Met Goal 6:: Pt to say she has 50% reduction in dizziness Goal Progress: Goal Met Plan: DC PT to HEP Discharge Comments: DC PT to HEP If there are questions or concerns regarding this patient's physical therapy, please feel free to call me at [phone]. Thank you for the referral of this patient. Sincerely, HAYDER Winters
== END 2020-03-23 13:55 | disposition home or self-care (01) ==
LOC: PT 13:00
PROVIDERS: PCP Family Medicine; Referring Provider Otolaryngology; Visit Provider Otolaryngology
DX: R42 Dizziness and giddiness (principal)
CPT/HCPCS: 97110; 97161; 97530

== ENCOUNTER 2021-01-15 08:45 | Emergency (ER) | payer MEDICARE, OTHER, SELFPAY ==
[2020-01-31 15:40] VITALS: BMI 24.8
[2021-01-15 08:46] VITALS: BP 147/96; PULSE 70; RESP 15; TEMP 36.7; O2SAT 96; BMI 24.7
--- NOTE | 2021-01-15 09:09 | EDS_ITS ---
HPI History of Present Illness Chief Complaint: Back Informant: patient and spouse/S.O. Onset/Context/Timing Onset: Days Context: Gradual Onset Injury: work related Timing: Continuous and Waxes and wanes Quality: Sharp Location: Lumbar Current Severity: Moderate Maximum Severity: Moderate Associated Symptoms Associated Symptoms: Negative for Numbness, Tingling, Radiation to Right Leg, Radiation to Left Leg, Fever, Abdominal Pain, Dysuria, Unable to Ambulate, Unable to Transfer, Urinary Retention, Constipation and Fecal Incontinence Narrative Narrative: 80-year-old female history of prior colon cancer partial colectomy. Has had intermittent back pain for years. She denies any recent falls or trauma. No fever. No dysuria. She has chronic incontinence that is not new or worse. She is never had back surgery. States over the last week she has had worsening pain. Worse with movement. It really does not radiate down her legs. She was seen at her primary care physician's office by another physician and it sounds like she was given an IM injection of Kenalog which helped her for about half a day but she has not had other relief. She denies any other symptoms. Prior similar symptoms: Yes Recent Illness/Hospitalization: No [facility] Medical History (Updated 01/15/21 @ 10:[address] Sai Brady MD) Chronic kidney disease, stage 3 Colon cancer Diverticulitis Essential (primary) hypertension GERD (gastroesophageal reflux disease) Hiatal hernia Hyperlipidemia Intestinal disaccharidase deficiencies and disaccharide malabsorption Iron deficiency anemia Nonrheumatic mitral (valve) insufficiency Right bundle branch block (RBBB) Home Medications aspirin 81 mg PO DAILY@0800 tab 05/01/17 [Rx Last Taken 01/31/20 08:00 1] lisinopril 20 mg tablet 20 mg PO DAILY #90 tab 04/09/19 [Rx Last Taken 01/30/20 12:00 1] meclizine 12.5 mg tablet 12.5 mg PO BID-TID 04/09/19 [History Last Taken 01/31/20 08:00 1] multivit with bpgujdch-diew-JA-lutein 8 mg iron-400 mcg-300 mcg tablet 1 tab PO DAILY 04/09/19 [History Last Taken 01/31/20 08:00] omeprazole 20 mg capsule,delayed release 20 mg PO DAILY #90 cap 04/09/19 [Rx Last Taken 01/31/20 08:00 1] carvedilol 25 mg PO BID 01/31/20 [History Last Taken 01/31/20 08:00 1] hydrochlorothiazide 25 mg PO DAILY 01/15/21 [History Last Taken Unknown] hydrocodone-acetaminophen 1 tab PO Q4H PRN 7 Days #20 tab 01/15/21 [Rx Last Taken Unknown] Allergy/AdvReac Type Severity Reaction Status Date / Time Penicillins Allergy selling Verified 01/15/21 08:51 rofecoxib [From Vioxx] Allergy mouth sores Verified 01/15/21 08:51 Family History Father Myocardial infarction, Onset Age: 48 from an MA age 48 Brother CVA (cerebral vascular accident) Mother CVA (cerebral vascular accident) Other CAD (coronary artery disease) Cancer Surgical History H/O right hemicolectomy History of left heart catheterization (07/30/18) Hx of cholecystectomy Social History Smoking Status: Never smoker ROS ROS ED ROS Narrative Denies recent illness. Review of Systems ROS Unobtainable: Denies due to encephalopathy Constitutional Constitutional ED: Denies chills or fever(s) Eyes Eyes: Denies change in vision ENT ENT ED: Denies ear pain or sore throat Cardiovascular Cardiovascular: Denies chest pain Respiratory/Chest Respiratory/Chest: Denies dyspnea Gastrointestinal Gastrointestinal: Denies abdominal pain, constipation, diarrhea, melena, nausea or vomiting Genitourinary Genitourinary ED: Denies dysuria or hematuria Musculoskeletal Musculoskeletal: Reports back pain; Denies myalgias Integumentary Denies rash Neurologic Neurologic: Denies headache(s) Psychiatric Psychiatric: Denies depression Endocrine Endocrinology: Denies polyuria Hematologic/Lymphatic Hematologic/Lymphatic: Denies easy bruising Allergic/Immunologic Allergic/Immunologic ED: Denies urticaria EXAM Physical Exam Narrative Exam Narrative: Older female complaining of back pain. Vital signs are stable afebrile. HEENT exam unremarkable. Neck nontender. Lungs clear to auscultation bilaterally. Heart regular rhythm no murmur rate about 70. Abdomen soft nontender normal bowel sounds no peritoneal signs no pulsatile mass. Moving all 4 extremities. Neurovascular intact. No cauda equina. No saddle anesthesia. Normal 5 out of 5 motor strength of both lower extremities. Normal sensation. Upper extremities are normal. She does have increasing back pain with movement of either leg it really does not radiate to her leg. Back exam reproducible tenderness over the lower lumbar spine and iliac crest. There is no signs of trauma no redness or warmth. Neurologic leg she is awake alert with no focal motor or sensory deficits. Const Vital Signs: 01/15/21 08:46 Temperature 98.1 F Temperature Source Oral Pulse Rate 70 Respiratory Rate 15 Blood Pressure 147/96 H Blood Pressure Mean 113 Pulse Ox 96 Oxygen Delivery Method Room Air MDM MDM MDM Narrative Medical decision making narrative: Older female with acute on chronic low back pain worse with change of position. Appears to be obviously musculoskeletal. She will be treated with IM morphine and p.o. Zofran. I am but obtain lumbar spine x-rays. Repeat exam patient is doing well at 10:25 AM. She will be discharged to home. Abdomen is benign. This appears to be musculoskeletal back pain. She will be written for [employer] for pain and limited Motrin at home. She has a follow-up appointment with her primary care physician in a about a week. If her symptoms are not improving they can discuss obtaining an MRI of her back. Radiography X-Ray: LS SPine, No Fracture, Normal Bony Alignment, DJD and Disk Space Narrowing Diagnostic Testing: Radiology Impression Lumbar Spine X-Ray 01/15/21 09:33 IMPRESSION: Degenerative changes of the spine. Electronically Signed: Tracie Doss MD at 9:53 EDT Tel , Service support , LS-spine x-rays multiple views I did relay that interpreted by myself shows chronic degenerative changes. Arthritis. I did go over the film with the patient. No signs of any type of metastases or compresses osteolytic lesions. Normal appearing lumbar spine x-ray for someone of this patient's age. Discharge Plan Triage Chief Complaint: Back ED Provider: Sai Brady Dx/Rx/DC Orders Clinical Impression: Back pain Instructions: ED Back Pain (Acute or Chronic) Prescriptions: New hydrocodone-acetaminophen 5-325 mg tablet 1 tab PO Q4H PRN (Reason: pain) 7 Days Qty: 20 RF: 0 No Action Centrum Silver Women 8 mg iron-400 mcg-300 mcg tablet 1 tab PO DAILY RF: 0 meclizine 12.5 mg tablet 12.5 mg PO BID-TID RF: 0 lisinopril 20 mg tablet 20 mg PO DAILY Qty: 90 RF: 3 omeprazole 20 mg capsule,delayed release(DR/EC) 20 mg PO DAILY Qty: 90 RF: 3 aspirin 81 MG tablet 81 mg PO DAILY@0800 RF: 0 carvedilol 12.5 MG tablet 25 mg PO BID RF: 0 hydrochlorothiazide 25 mg tablet 25 mg PO DAILY RF: 0 Primary Care Provider: Chencho Emery Referrals: Chencho Emery MD [Primary Care Provider] - Keep Nia appointment Activity Restrictions/Additional Instructions: Your back pain appears to be musculoskeletal. The x-rays showed arthritis. Wallace and limited Motrin for pain. Follow-up with your primary care physician with your scheduled appointment they may need to do more advanced imaging of your back such as an MRI. Disposition Disposition: Home, Self Care
[2021-01-15] MEDS: morphine 10 MG/ML Syringe IM (09:25)
[2021-01-15] MEDS: Ondansetron ODT 4 MG Tablet PO (09:26)
--- NOTE | 2021-01-15 09:33 | RAD_ITS ---
STUDY: X-RAY - LUMBAR SPINE REASON FOR EXAM: Female, 80 years old. atraumatic low back pain TECHNIQUE: 4 view(s) of the lumbar spine were obtained. COMPARISON: None FINDINGS: Normal lumbar lordosis. Moderate scoliosis There is multilevel endplate spondylosis of the lumbar vertebrae. There is multi-level degenerative disc disease with multi-level disc space narrowing. The soft tissue structures are unremarkable. RAD/L/S Spine Min 4 Views IMPRESSION: Degenerative changes of the spine. Electronically Signed: Tracie Doss MD at 9:53 EDT Tel , Service support ,
[2021-01-15 10:28] VITALS: BP 120/77; PULSE 64; RESP 15; O2SAT 96
== END 2021-01-15 10:36 | disposition home or self-care (01) ==
PROVIDERS: Emergency Provider Emergency Medicine; PCP Family Medicine
DX: M54.5 Low back pain (principal); G89.29 Other chronic pain; I12.9 Hypertensive chronic kidney disease with stage 1 through stage 4 chronic kidney disease, or unspecified chronic kidney disease; N18.30 Chronic kidney disease, stage 3 unspecified; D50.9 Iron deficiency anemia, unspecified; E78.5 Hyperlipidemia, unspecified; E73.9 Lactose intolerance, unspecified; R32 Unspecified urinary incontinence; K21.9 Gastro-esophageal reflux disease without esophagitis; Z79.82 Long term (current) use of aspirin; Z79.899 Other long term (current) drug therapy; Z85.038 Personal history of other malignant neoplasm of large intestine; Z90.49 Acquired absence of other specified parts of digestive tract
CPT/HCPCS: 72110; 96372; 99284

== ENCOUNTER 2021-07-25 05:54 | Day surgery (SDC) | payer MEDICARE, OTHER, SELFPAY ==
[2021-07-25] VITALS (9 sets, daily range): BP systolic 80–122; BP diastolic 53–99; PULSE 56–72; RESP 16–18; TEMP 36.2–36.9; O2SAT 94–97; BMI 25.0
--- NOTE | 2021-07-25 06:03 | PCM.HP.BLA ---
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: No Is patient in pain?: No Allergies Penicillins Allergy (Intermediate, Verified 06/30/21 08:03) swelling joints rofecoxib [From Vioxx] Allergy (Verified 06/30/21 08:03) mouth sores Medications lisinopril 20 mg tablet 20 mg PO DAILY #90 tab 04/09/19 [Rx Confirmed 06/30/21] meclizine 12.5 mg tablet 12.5 mg PO BID-TID 04/09/19 [History Confirmed 06/30/21] multivit with zulkwuln-qnwf-NS-lutein 8 mg iron-400 mcg-300 mcg tablet 1 tab PO DAILY 04/09/19 [History Confirmed 06/30/21] omeprazole 20 mg capsule,delayed release 20 mg PO DAILY #90 cap 04/09/19 [Rx Confirmed 06/30/21] hydrochlorothiazide 25 mg PO DAILY 01/15/21 [History Confirmed 06/30/21] carvedilol 12.5 mg tablet 25 mg PO QDAY tab 06/30/21 [History Confirmed 06/30/21] Is last menstrual period known: No Post menopausal: Yes Patient : No PFSH Medical History (Updated 06/30/21 @ 08:[address] Easton Davila MD) Chronic kidney disease, stage 3 Colon cancer (~2008) Diverticulitis Essential (primary) hypertension GERD (gastroesophageal reflux disease) Hiatal hernia Hyperlipidemia Intestinal disaccharidase deficiencies and disaccharide malabsorption Iron deficiency anemia Nonrheumatic mitral (valve) insufficiency Right bundle branch block (RBBB) Sciatica Surgical History (Updated 06/30/21 @ 08:02 by Jory Nguyen) H/O right hemicolectomy History of colonoscopy (~2016) History of left heart catheterization (07/30/18) Hx of cholecystectomy Family History Father Myocardial infarction, Onset Age: 48 from an [place] age 48 Brother CVA (cerebral vascular accident) Mother CVA (cerebral vascular accident) Other CAD (coronary artery disease) Cancer Social History Smoking Status: Never smoker HPI HPI HPI: MARIELY PAL, is a 80 F who presents to the office today for surgical consultation regarding the possibility of following through with a colonoscopy. The patient has a personal history of colon cancer and a personal history of gastroesophageal reflux disease. She has had a remote history of a right colectomy in 2008. Her most recent colonoscopy was July 2016. Internal hemorrhoids were identified. A 9 mm polyp in the proximal transverse colon was seen. Diverticulosis was seen. A patent end-to-end ileocolonic anastomosis was seen. Her final pathology showed a sessile serrated polyp. Dysplasia was not identified. I did specifically ask her about any gastroesophageal reflux disease symptoms today. She does not note that she is bothered by anything particularly. She is on 20 mg of omeprazole daily. She feels well in that regard. If she has any concerns that would have to do with degenerative bone disease and arthritis and a recent severe bout of right lower extremity sciatica this past summer. This is all really slowed her down. She denies bright red blood per rectum or melena. She does have the prolapsing hemorrhoidal tissue. Other than having to be manually reduced it otherwise is not bleeding. She might or might not want to consider future treatment. Exam Const General: cooperative and comfortable Nutritional Appearance: average body habitus Orientation: alert and awake HENMT Head: normal to inspection Eyes General: appearance normal, both eyes and all related structures Resp Effort & Inspection: normal respiratory effort Auscultation: clear to auscultation bilaterally Cardio Rate: regular rate Rhythm: regular rhythm GI Other: Soft, nontender, well-healed vertical supraumbilical incision as well as a transverse infraumbilical incision. No hepatosplenomegaly. No masses. Normal bowel sounds. Musc Cervical Spine: normal cervical lordosis Neuro General: patient alert, patient awake and patient oriented x3 Extrem Other: Mild 1+ bilateral lower extremity swelling. Not pitting. Psych Appearance: grossly normal Assessment and Plan Assessment and Plan (1) History of colon cancer: Status: Acute (2) Personal history of colonic polyps: Status: Acute Plan - Dr. Easton Davila MD: 80-year-old female who continues to enjoy a good quality of life. It would be her arthritis and degenerative joint disease which is limiting. I believe that it is reasonable to pursue a final colonoscopy with possible biopsy or polypectomy as indicated. She is aware of the technique, benefit, risk and alternatives. We will schedule her pursued at her discretion. I appreciate the ongoing opportunity of assisting with her surgical care. The patient might want to consider future hemorrhoidal treatment. At the moment she has to manually reduce some prolapsing hemorrhoids. Otherwise she states that they do not bother her. That might be a future consideration pending findings at the time of her colonoscopy. Copy: Dr. Chencho Davila M.D., F.A.C.S. I have re-examined the patient. There are no clinical changes since date of exam.
[2021-07-25] MEDS: Lactated Ringers 1,000 ML 15 ML IV (06:29)
--- NOTE | 2021-07-25 07:00 | COLBX_PTH ---
PATIENT: MARIELY PAL LOC: EN U#:[id number] AGE/SX: 80/F ROOM: RE07/25/[address]: Dr. Easton Davila MD : 1940 BED: DIS: 07/25/2021 SPEC #: [id number] RECD: 07/25/21 15:40 STATUS: LADY WORRELL #: [id number] ILYA: 07/25/21 07:[address]: Easton Davila DEPT: SURGICAL PATHOLOGY RECD BY: Bandar San ENTERED: 07/26/21 11:47 SP TYPE: COLON BX OTHR DR: Dr. Chencho Emery MD Tissues: Transverse colon Procedures: Surgery Specimen Level IV HEADER OPERATION: Colonoscopy (MAC) PRE-OP DIAGNOSIS: History of colon cancer, history of colonic polyps TISSUE SUBMITTED: Proximal transverse polyp MICROSCOPIC DIAGNOSIS Proximal transverse colon polyp, biopsy: Tubular adenoma. SJ:mayte 07/27/2021 MICROSCOPIC DESCRIPTION Slides are reviewed. GROSS DESCRIPTION Received in fixative is one container labeled with the patient's name and designated proximal transverse polyp. The specimen consists of one irregular fragment of light quarles soft tissue that measures 0.5 x 0.3 x 0.1 cm. The specimen is totally submitted in one cassette. / AM:mayte 07/26/2021 TC:1 CPT: 60160
--- NOTE | 2021-07-25 07:35 | OP.COLON_ITS ---
Patient Name: Leonor Ann Procedure Date: 07/25/2021 7:02 AM Date of : 1940 Age: 80 Procedure: Colonoscopy Indications: High risk colon cancer surveillance: Personal history of colon cancer Providers: Easton Davila MD Medicines: See the Anesthesia note for documentation of the administered medications Patient Profile: Last Colonoscopy: July 2016. Complications: No immediate complications. Procedure: Pre-Anesthesia Assessment: - Prior to the procedure, a History and Physical was performed, and patient medications and allergies were reviewed. The patient's tolerance of previous anesthesia was also reviewed. The risks and benefits of the procedure and the sedation options and risks were discussed with the patient. All questions were answered, and informed consent was obtained. Prior Anticoagulants: The patient has taken no previous anticoagulant or antiplatelet agents. ASA Grade Assessment: II - A patient with mild systemic disease. After reviewing the risks and benefits, the patient was deemed in satisfactory condition to undergo the procedure. After I obtained informed consent, the scope was passed under direct vision. Throughout the procedure, the patient's blood pressure, pulse, and oxygen saturations were monitored continuously. The colonoscope was introduced through the anus and advanced to the ileocolonic anastomosis. The colonoscopy was performed without difficulty. The patient tolerated the procedure well. The quality of the bowel preparation was good. Ileocolonic anastomosis were photographed. Scope In: 7:16:12 AM Scope Withdrawal Time 0 hours 10 minutes 22 seconds Scope Out: 7:29:05 AM Total Procedure Duration Time 0 hours 12 minutes 53 seconds Findings: The perianal and digital rectal examinations were normal. A 5 mm polyp was found in the proximal transverse colon. The polyp was sessile. The polyp was removed with a cold snare. Resection and retrieval were complete. Scattered diverticula were found in the sigmoid colon. There was evidence of a prior functional end-to-end ileo-colonic anastomosis in the proximal transverse colon. This was patent and was characterized by healthy appearing mucosa. Impression: - One 5 mm polyp in the proximal transverse colon, removed with a cold snare. Resected and retrieved. - Diverticulosis in the sigmoid colon. - Patent functional end-to-end ileo-colonic anastomosis, characterized by healthy appearing mucosa. Recommendation: - Discharge patient to home. - Resume previous diet. - Continue present medications. - Repeat colonoscopy in 5 years for surveillance. - Telephone my office for pathology results in 1 week. Procedure Code(s): --- Professional --- 62452, Colonoscopy, flexible; with removal of tumor(s), polyp(s), or other lesion(s) by snare technique Diagnosis Code(s): --- Professional --- Z85.038, Personal history of other malignant neoplasm of large intestine D12.3, Benign neoplasm of transverse colon (hepatic flexure or splenic flexure) Z98.0, Intestinal bypass and anastomosis status K57.30, Diverticulosis of large intestine without perforation or abscess without bleeding CPT copyright 2017 [employer]. All rights reserved. The codes documented in this report are preliminary and upon binder stripper machine review may be revised to meet current compliance requirements. Easton Davila MD 07/25/2021 7:34:22 AM This report has been signed electronically. Number of Addenda: 0 Note Initiated On: 07/25/2021 7:02 AM
--- NOTE | 2021-07-25 07:36 | OP.CCLET_ITS ---
07/25/2021 Chencho Emery MD Re : Colonoscopy procedure for Leonor Ann Dear Dr. Emery This procedure was performed on Sunday, July 25, 2021. My impressions and recommendations are as follows: Impressions : - One 5 mm polyp in the proximal transverse colon, removed with a cold snare. Resected and retrieved. - Diverticulosis in the sigmoid colon. - Patent functional end-to-end ileo-colonic anastomosis, characterized by healthy appearing mucosa. Recommendations : - Discharge patient to home. - Resume previous diet. - Continue present medications. - Repeat colonoscopy in 5 years for surveillance. - Telephone my office for pathology results in 1 week. My findings are described in the full procedure note, which is enclosed. If I can be of further assistance, please feel free to contact me at Doctor phone number(s): Work: . Sincerely, Easton Davila MD 07/25/2021 7:34:22 AM This report has been signed electronically.
[2021-07-25] MEDS: Lactated Ringers 250 ML 999 ML IV (07:50)
== END 2021-07-25 23:59 | disposition home or self-care (01) ==
LOC: EN 05:55 → AC 05:55
PROVIDERS: PCP Family Medicine; Referring Provider Family Medicine; Visit Provider Surgery
PROC: 0DJD8ZZ Inspection of Lower Intestinal Tract, Via Natural or Artificial Opening Endoscopic (ICD-10-PCS; CPT 45378; principal; 2021-07-25 06:55)
DX: Z12.11 Encounter for screening for malignant neoplasm of colon (principal); N18.30 Chronic kidney disease, stage 3 unspecified; K63.5 Polyp of colon; I12.9 Hypertensive chronic kidney disease with stage 1 through stage 4 chronic kidney disease, or unspecified chronic kidney disease; K57.30 Diverticulosis of large intestine without perforation or abscess without bleeding; D50.9 Iron deficiency anemia, unspecified; K21.9 Gastro-esophageal reflux disease without esophagitis; K64.8 Other hemorrhoids; Z86.010 Personal history of colon polyps; E78.5 Hyperlipidemia, unspecified; Z78.0 Asymptomatic menopausal state; Z79.899 Other long term (current) drug therapy; Z85.038 Personal history of other malignant neoplasm of large intestine; Z90.49 Acquired absence of other specified parts of digestive tract
CPT/HCPCS: 45385; 88305; J7120; J2405

== ENCOUNTER 2024-02-13 09:41 | Inpatient (IN) | payer MEDICARE, OTHER, SELFPAY ==
[2024-02-13 09:42] VITALS: BP 129/78; PULSE 76; RESP 16; TEMP 36.9; O2SAT 99
--- NOTE | 2024-02-13 10:02 | RAD_ITS ---
STUDY: X-RAY - PELVIS AND RIGHT HIP REASON FOR EXAM: Female, 83 years old. Right hip pain following injury. TECHNIQUE: 3 views of the pelvis and hip. COMPARISON: None. FINDINGS: There is a non-specific bowel gas pattern. Normal visualized soft tissue structures. There is narrowing with cortical sclerosis and osteophyte formation of the sacroiliac joint consistent with degenerative osteoarthritic changes. Nondisplaced fractures along the medial aspect of the right superior and inferior pubic rami. There is narrowing with sclerosis of the pubic symphysis. Normal bilateral ischial tuberosities. Normal visualized femoral head. Normal acetabulum. There is mild articular joint space narrowing of the hip. RAD/HIP, UNI W/ Pelvis 2-3 Views IMPRESSION: Nondisplaced fractures along the medial aspect of the right superior and inferior pubic rami. Electronically Signed: Edward Strickland MD at 10:50 EDT ,
--- NOTE | 2024-02-13 10:04 | EDS_ITS ---
HPI History of Present Illness Chief Complaint: Fall Informant: patient Narrative Narrative: Patient is an 83-year-old female with history of sciatica on the right side, hypertension, colon cancer status post right hemicolectomy, CKD 3 and hyperlipidemia presenting with right hip pain after a fall. Patient states she was walking across the room and trying to bean picker some pants when she lost her balance and fell. She landed on her right side. She subsequently had right hip pain. EMS was called and she was brought to the emergency room. She denies any associate numbness or tingling. She states she has some chronic sciatica on the right side but this feels different. She did not hit her head. She denies a loss of conscious. She does take an 81 mg aspirin daily. She reports a chronic cough with no acute change. Denies any other complaints at this time and states she was in her normal state of health before this injury today. [facility] Medical History Wears dentures Wears glasses Post-menopausal Cancer History of steroid therapy Arthritis Back pain Hypertension Gastric reflux Non-smoker Shortness of breath on exertion History of pain when walking History of edema History of echocardiogram History of stress test Cardiology follow-up encounter Hx of vaginal delivery Sciatica Nonrheumatic mitral (valve) insufficiency Right bundle branch block (RBBB) Hyperlipidemia Chronic kidney disease, stage 3 Iron deficiency anemia Intestinal disaccharidase deficiencies and disaccharide malabsorption Hiatal hernia Diverticulitis Colon cancer (~2008) Essential (primary) hypertension GERD (gastroesophageal reflux disease) Home Medications ?Medication ?Instructions ?Recorded ?Last Taken ?Type lisinopril 20 mg tablet 20 mg PO DAILY blood pressure #90 04/09/19 01/30/20 12:00 Rx tabs 1 meclizine 12.5 mg tablet 12.5 mg PO BID-TID vertigo 04/09/19 01/31/20 08:00 History 1 tzwbqiij-gkge-zeyh 8 mg-folic 400 1 tab PO DAILY supplement 04/09/19 01/31/20 08:00 History mcg-K 50 mcg-lutein 300 mcg tablet (Centrum Silver Women) hydrochlorothiazide 25 mg tablet 25 mg PO DAILY blood pressure 01/15/21 Unknown History carvedilol 12.5 mg tablet 25 mg PO DAILY heart 06/30/21 07/25/21 05:00 History aspirin 81 mg chewable tablet 1 tab PO DAILY heart health 02/13/24 Unknown History (Aspirin Childrens) citalopram 20 mg tablet 20 mg PO DAILY depression 02/13/24 Unknown History omeprazole 40 mg capsule,delayed 40 mg PO DAILY gerd 02/13/24 Unknown History release Allergy/AdvReac Type Severity Reaction Status Date / Time Penicillins Allergy Intermediate swelling Verified 02/13/24 09:42 joints rofecoxib (From Vioxx) Allergy mouth sores Verified 02/13/24 09:42 Family History Father Myocardial infarction, Onset Age: 48 from an [place] age 48 Brother CVA (cerebral vascular accident) Mother CVA (cerebral vascular accident) Other CAD (coronary artery disease) Cancer Surgical History History of colonoscopy (~2016) History of left heart catheterization (07/30/18) Hx of cholecystectomy H/O right hemicolectomy Social History Smoking Status: Never smoker ROS ROS ED Constitutional Constitutional ED: Denies chills or fever(s) Cardiovascular Cardiovascular: Denies chest pain Respiratory/Chest Respiratory/Chest: Reports cough Gastrointestinal Gastrointestinal: Denies nausea or vomiting Musculoskeletal Musculoskeletal: Reports other Details: Right hip pain, right elbow pain Integumentary Reports Abrasions and other Hematologic/Lymphatic Hematologic/Lymphatic: Reports easy bruising; Denies easy bleeding EXAM Physical Exam Const Vital Signs: 02/13/24 09:42 02/13/24 09:45 Temperature 98.4 F Temperature Source Oral Pulse Rate 76 Respiratory Rate 16 Respiratory Depth Normal Respiratory Pattern Normal Blood Pressure 129/78 H Blood Pressure Mean 95 Pulse Ox 99 Oxygen Delivery Method Room Air Positive well nourished and well developed General Appearance ED: well developed and NAD HEENT Reports TM's clear HEENT Narrative: Dentures in place. No cephalhematoma appreciated. No signs of any facial trauma. atraumatic Tympanic Membrane ED: Yes TM's clear Eyes PERRL and EOMs intact bilaterally Neck full ROM General: Negative for tenderness Chest Wall inspection of chest normal and palpation of chest normal Resp normal respiratory effort and clear to auscultation bilaterally Cardio regular rhythm Cardio Narrative: 2+ DP pulses, 2+ radial pulses Rate: regular rate GI normal to inspection, nondistended, normoactive bowel sounds and non-tender Extremity Extremity Narrative: No deformity appreciated. Of the right upper extremity patient is some mild tenderness palpation of the proximal ulna and some bruising around the olecranon with no pinpoint bony tenderness. No significant effusion appreciated. Normal range of motion with some pronation, supination, flexion and extension. Normal range of motion no tenderness of the shoulder, proximal humerus, distal forearm and wrist. Right lower extremity?no rotational deformity. Tender palpation over the greater trochanter as well as pain with range of motion of the hip. No tenderness of the distal femur, knee or distal leg. Neuro oriented x3, moves all extremities, no focal motor deficits and no sensory deficits noted Psych mental status grossly normal and thought process normal Skin Skin Narrative: Ecchymosis noted to the right elbow. No abrasions or lacerations appreciated. MDM MDM MDM Narrative Medical decision making narrative: Patient is evaluated for right hip and to a lesser extent right elbow pain after mechanical fall. She did not hit her head. Differential includes hip fracture, hip dislocation, pelvic fracture, elbow contusion, elbow fracture. Patient is given IV morphine and will obtain hip and elbow films. X-ray of the elbow reviewed by myself as well as radiology does not show an acute process. X-ray of the left hip with pelvis review myself as well as radiology shows an inferior and superior rami fracture but no other fracture. Patient can use and has significant pain with any attempt to even sit up in bed. She cannot ambulate and as she lives home alone does not feel safe going home. She is given additional dose of morphine. She is agreeable with admission. Will obtain basic labs as well. CBC and BMP remarkable for mild leukocytosis of 11.6 which suspect is reactive from the fall. She is mildly anemic with a hemoglobin 11.8 which is near her baseline. She does have what appears to be an acute hyponatremia with a sodium of 127. She has some CKD with a creatinine of 1.39. Patient is on hydrochlorothiazide and lisinopril which could be contribute to her hyponatremia. She will be admitted for further management of hyponatremia as well as debility associate with her pelvic fracture and pain control. Case discussed with Dr. [place], admitting physician. Lab Data Attestation: I reviewed the patient's lab results. Labs: Laboratory Results - last 24 hr 02/13/24 10:18 WBC 11.6 H RBC 3.53 L Hgb 11.8 L Hct 32.7 L MCV 92.6 MCH 33.4 H MCHC 36.1 H RDW Std Deviation 44.0 H RDW Coeff of Raciel 13.0 Plt Count 281 MPV 9.5 Immature Gran % (Auto) 0.800 Neut % (Auto) 79.2 H Lymph % (Auto) 9.4 L [place] % (Auto) 10.0 Eos % (Auto) 0.3 Baso % (Auto) 0.3 Absolute Neuts (auto) 9.2 H Absolute Lymphs (auto) 1.09 Nucleated RBC % 0 Sodium 127 L Potassium 3.7 Chloride 93 L Carbon Dioxide 26.0 Anion Gap 8 BUN 17 Creatinine 1.39 H Est GFR (MDRD) Af Amer 46 L Est GFR (MDRD) Non-Af 38 L BUN/Creatinine Ratio 12.2 Glucose 90 Calcium 8.8 Radiography Diagnostic Testing: Clinical Impression(s) from Imaging Studies Hip/Pelvis X-Ray 02/13/24 10:02 IMPRESSION: Nondisplaced fractures along the medial aspect of the right superior and inferior pubic rami. Electronically Signed: Edward Strickland MD at 10:50 EDT , Elbow X-Ray 02/13/24 10:08 IMPRESSION: Normal x-ray examination of the elbow. Electronically Signed: Edward Strickland MD at 10:50 EDT , Management Discussion w/another healthcare provider: Hospitalist Discharge Plan Triage Chief Complaint: Fall ED Provider: Isis Mancini Dx/Rx/DC Orders Clinical Impression: Closed pelvic fracture, Hyponatremia Prescriptions: No Action Centrum Silver Women 8 mg iron-400 mcg-300 mcg tablet 1 tab PO DAILY meclizine 12.5 mg tablet 12.5 mg PO BID-TID lisinopril 20 mg tablet 20 mg PO DAILY Qty: 90 3RF carvedilol 12.5 mg tablet 25 mg PO DAILY hydrochlorothiazide 25 mg tablet 25 mg PO DAILY aspirin [Aspirin Childrens] 81 mg tablet,chewable 1 tab PO DAILY omeprazole 40 mg capsule,delayed release(DR/EC) 40 mg PO DAILY citalopram 20 mg tablet 20 mg PO DAILY Primary Care Provider: Chencho Emery Referrals: Chencho Emery MD [Primary Care Provider] - Print Language: Icelandic Disposition Disposition: Acute Care Hospital [facility]
--- NOTE | 2024-02-13 10:08 | RAD_ITS ---
STUDY: X-RAY - RIGHT ELBOW REASON FOR EXAM: Female, 83 years old. Pain, trauma TECHNIQUE: 3 view(s) of the elbow. COMPARISON: None. FINDINGS: Normal visualized humerus, radius and ulna. Normal radiocapitellar and ulnotrochlear articulations. The soft tissue structures are unremarkable. RAD/Elbow min 3 Views IMPRESSION: Normal x-ray examination of the elbow. Electronically Signed: Edward Strickland MD at 10:50 EDT ,
[2024-02-13] MEDS: Morphine 4 MG/ML Syringe 3 MG IV (10:15)
[2024-02-13] MEDS: Morphine 4 MG/ML Syringe IV (11:15)
[2024-02-13 11:19] LABS: Absolute Lymphocyte Count 1.09 X10^3/uL (0.83-4.51); Absolute Neutrophil Count 9.2 X10^3/uL (2.0-7.7); Basophil# 0.03 X10^3/uL; Basophil% 0.3 % (0-1); Eosinophil# 0.04 X10^3/uL; Eosinophils% 0.3 % (0-5); Hematocrit 32.7 % (37-47); Hemoglobin 11.8 g/dL (12.0-15.0); Lymphocyte # 1.09 X10^3/ul (0.83-4.51); Lymphocyte % 9.4 % (19-41); Mean Corp Hgb Conc 36.1 g/dL (32-36); Mean Corpuscular Hgb 33.4 pg (27.0-32.0); Mean Corpuscular Volume 92.6 fL (81-99); Mean Platelet Vol. 9.5 fl (6.2-12.0); Monocyte# 1.16 X10^3/uL; NRBC Flagged by Analyzer 0 % (0-5); Neutrophil # 9.16 X10^3/uL (2.7-7.7); Neutrophil % 79.2 % (47-70); Platelet Count 281 K/mm3 (150-450); Red Blood Count 3.53 M/mm3 (4.2-5.4); White Blood Count 11.6 K/mm3 (4.4-11.0)
[2024-02-13 11:27] LABS: Anion Gap 8 (5-15); BUN 17 mg/dL (7-18); BUN/Creat Ratio 12.2 RATIO (10-20); Calcium,Total 8.8 mg/dL (8.5-10.1); Chloride 93 mmol/L (98-107); Creatinine, Serum 1.39 mg/dL (0.55-1.02); EST Glomerular Filtration Rate 38 mL/min (>60); Est Glom Filt Rate - Afr Amer 46 mL/min (>60); Glucose 90 mg/dL (74-106); Potassium 3.7 mmol/L (3.5-5.1); Sodium Level 127 mmol/L (136-145)
--- NOTE | 2024-02-13 11:33 | HP.PCM.HOS_ITS ---
HPI - General General Date of Admission: 02/13/24 Date of Service: 02/13/24 Chief Complaint: Inability to walk status post mechanical fall HPI Dhruv PAL, is a 83 F who presented to the emergency department at [facility] on 02/13/2024 after sustaining a mechanical fall at home that resulted in pain with ambulation. Patient was not using her walker or an assistive device at the time of her fall. She stated she just lost her balance and fell over. She fell onto her right side and had pain in her right elbow and right pelvic region. She was able to get up independently utilizing a walker but had trouble ambulating so was brought to the emergency department. Vital signs on presentation showed a temperature of 98.4, heart rate 76, blood pressure 129/78, respiratory 16 oxygen saturation was 99% on room air. Her CBC showed a leukocytosis with a white count of 11.6, anemia with a hemoglobin of 11.8 and a left shift was present at 79.2. Her chemistry panel showed hyponatremia with a sodium of 127 (baseline previously has been in the 130s to 140s), serum creatinine was elevated 1.39 which is within her baseline. Hip and pelvic x-ray showed a nondisplaced fracture along the medial aspect of the right superior and inferior pubic ramus. Right elbow fractures showed subcutaneous edema but no bony abnormality. She lives alone at baseline and was unable to ambulate even after pain medication emergency department so she required admission for therapy, pain management and was found to have the above laboratory abnormalities which need addressed as well. [facility] Medical History Aneurysm Anxiety Depression Hx of benign neoplasm of parathyroid gland Osteoporosis CKD stage 3b, GFR 30-44 ml/min Wears dentures Wears glasses Post-menopausal Cancer History of steroid therapy Arthritis Back pain Hypertension Gastric reflux Non-smoker Shortness of breath on exertion History of pain when walking History of edema History of echocardiogram History of stress test Cardiology follow-up encounter Hx of vaginal delivery Sciatica Nonrheumatic mitral (valve) insufficiency Right bundle branch block (RBBB) Hyperlipidemia Chronic kidney disease, stage 3 Iron deficiency anemia Intestinal disaccharidase deficiencies and disaccharide malabsorption Hiatal hernia Diverticulitis Colon cancer (~2008) Essential (primary) hypertension GERD (gastroesophageal reflux disease) Home Medications ?Medication ?Instructions ?Recorded ?Last Taken ?Type lisinopril 20 mg tablet 20 mg PO DAILY blood pressure #90 04/09/19 01/30/20 12:00 Rx tabs 1 meclizine 12.5 mg tablet 12.5 mg PO BID-TID vertigo 04/09/19 01/31/20 08:00 History 1 kuppzlbd-ayow-gapw 8 mg-folic 400 1 tab PO DAILY supplement 04/09/19 01/31/20 08:00 History mcg-K 50 mcg-lutein 300 mcg tablet (Centrum Silver Women) hydrochlorothiazide 25 mg tablet 25 mg PO DAILY blood pressure 01/15/21 Unknown History carvedilol 12.5 mg tablet 25 mg PO DAILY heart 06/30/21 07/25/21 05:00 History aspirin 81 mg chewable tablet 1 tab PO DAILY heart health 02/13/24 Unknown History (Aspirin Childrens) citalopram 20 mg tablet 20 mg PO DAILY depression 02/13/24 Unknown History omeprazole 40 mg capsule,delayed 40 mg PO DAILY gerd 02/13/24 Unknown History release Allergy/AdvReac Type Severity Reaction Status Date / Time Penicillins Allergy Intermediate swelling Verified 02/13/24 09:42 joints rofecoxib (From Vioxx) Allergy mouth sores Verified 02/13/24 09:42 Family History Father Myocardial infarction, Onset Age: 48 from an [place] age 48 Brother CVA (cerebral vascular accident) Mother CVA (cerebral vascular accident) Other CAD (coronary artery disease) Cancer Surgical History History of colonoscopy (~2017) History of left heart catheterization (07/30/18) Hx of cholecystectomy H/O right hemicolectomy Social History (Updated 02/13/24 @ 17:[address] 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 Smoking Status: Never smoker alcohol intake: never substance use type: does not use additional social history: Has walker and cane at home but does not use on a regular basis ROS Constitutional Constitutional: Denies anorexia, change in weight, chills, fatigue, fever(s), malaise, night sweats, weakness or other Eyes Eyes: Denies blurry vision, change in eye color, change in vision, discharge from eye(s), double vision, erythema, eye pain, loss of vision or other ENT HEENT: Denies abnormal hearing, dysphagia, ear pain, epistaxis, headache(s), hearing loss, nasal congestion, nasal discharge, post nasal drip, sinus pressure, sore throat or other Cardiovascular Cardiovascular: Denies chest pain, claudication, dyspnea on exertion, edema, lightheadedness, orthopnea, palpitations, paroxysmal nocturnal dyspnea, rapid heart rate, syncope or other Respiratory/Chest Respiratory/Chest: Denies cough, dyspnea, excessive phlegm production, hemoptysis, productive cough, shortness of breath at rest, shortness of breath with exertion, wheezing or other Gastrointestinal Gastrointestinal: Denies abdominal pain, coffee ground emesis, constipation, diarrhea, dyspepsia, hematemesis, hematochezia, loose stools, melena, nausea, vomiting or other Genitourinary Genitourinary: Denies burning urination, difficulty urinating, dysuria, hematuria, nocturia, urinary frequency, urinary hesitancy, urinary incontinence, urinary urgency or other Musculoskeletal Musculoskeletal: Reports joint pain, joint stiffness and joint swelling; Denies arthralgias, back pain, myalgias, neck pain or other Neurologic Neurologic: Reports other Details: Intermittent vertigo but none presently ; Denies abnormal gait, abnormal speech, confusion, disequilibrium, dizziness, focal weakness, headache(s), numbness, paresthesias, seizure-like activity, seizures, syncope, tingling or tremor(s) Psychiatric Psychiatric: Denies anxiety, depression, homicidal ideation, suicidal ideation or other Endocrine Endocrinology: Denies change in body appearance, cold intolerance, excessive sweating, heat intolerance, polydipsia, polyuria or other Hematologic/Lymphatic Hematologic/Lymphatic: Denies anemia, easy bleeding, easy bruising, lymphadenopathy or other Allergic/Immunologic Allergic/Immunologic: Denies rhinitis, hives, eczemia, asthma or other Vital Signs Vital Signs Vital Signs: 02/13/24 09:42 02/13/24 09:45 Temperature 98.4 F Temperature Source Oral Pulse Rate 76 Respiratory Rate 16 Respiratory Depth Normal Respiratory Pattern Normal Blood Pressure 129/78 H Blood Pressure Mean 95 Pulse Ox 99 Oxygen Delivery Method Room Air Physical Exam Const alert, oriented x3, no apparent distress and well nourished Constitutional Narrative: Very pleasant, elderly, white female, sitting up in bed, family at bedside, currently appears comfortable, nontoxic General Appearance: cooperative HEENT normocephalic, head/scalp atraumatic, hearing grossly normal bilaterally and moist oral mucous membranes HEENT Narrative: Dentition is fair for age, Mallampati is 2, no thrush, Eyes PERRL, EOMs intact bilaterally and conjunctivae normal Eyes Narrative: No scleral icterus Neck no lymphadenopathy and supple Neck Narrative: Trachea midline, no thyroid enlargement Resp normal respiratory effort, no retractions, no use of accessory muscles and clear to auscultation bilaterally Auscultation: Negative for crackles, rhonchi or wheezes Cardio regular rate, regular rhythm, S1 normal heart sound, S2 normal heart sound, no murmurs, no rub, no gallops and no clicks GI normal to inspection, nondistended, normoactive bowel sounds, soft to palpation and non-tender Extremity no clubbing, cyanosis or edema Extremity Narrative: ecchymosis and abrasion of the R elbow(mild), pain with active movement of R LE Skin Skin Narrative: Skin cancer of Left face and R nasal bridge Neuro oriented x3 and no focal motor deficits Neuro Narrative: decreased R LE movement 2/2 pain Speech: speech normal Psych affect normal Psych Narrative: very pleasant Results Lab / Micro Data 02/13/24 10:18 02/13/24 10:18 Labs: Laboratory Results - last 24 hr 02/13/24 10:18: WBC 11.6 H, RBC 3.53 L, Hgb 11.8 L, Hct 32.7 L, MCV 92.6, MCH 33.4 H, MCHC 36.1 H, RDW Std Deviation 44.0 H, RDW Coeff of Raciel 13.0, Plt Count 281, MPV 9.5, Immature Gran % (Auto) 0.800, Neut % (Auto) 79.2 H, Lymph % (Auto) 9.4 L, [place] % (Auto) 10.0, Eos % (Auto) 0.3, Baso % (Auto) 0.3, Absolute Neuts (auto) 9.2 H, Absolute Lymphs (auto) 1.09, Nucleated RBC % 0, Sodium 127 L, Potassium 3.7, Chloride 93 L, Carbon Dioxide 26.0, Anion Gap 8, BUN 17, C reatinine 1.39 H, Est GFR (MDRD) Af Amer 46 L, Est GFR (MDRD) Non-Af 38 L, BUN/Creatinine Ratio 12.2, Glucose 90, Calcium 8.8 Imaging Radiology Impression Hip/Pelvis X-Ray 02/13/24 10:02 IMPRESSION: Nondisplaced fractures along the medial aspect of the right superior and inferior pubic rami. Electronically Signed: Edward Strickland MD at 10:50 EDT , Elbow X-Ray 02/13/24 10:08 IMPRESSION: Normal x-ray examination of the elbow. Electronically Signed: Edward Strickland MD at 10:50 EDT , Assessment & Plan Assessment/Plan (1) Hyponatremia: (2) Closed pelvic fracture: (3) Anemia: (4) Leukocytosis: PLAN: Plan Nondisplaced right superior and inferior pubic ramus fracture -Nonsurgical -Scheduled Tylenol -As needed oxycodone -As needed tizanidine -Check vitamin D level -Weightbearing as tolerated -PT/OT consultation -Patient has not been compliant with using walker at home and we discussed this at the time of admission -Bowel regimen Mechanical fall -Patient states she lost her balance which happens intermittently upon turning -PT/OT consultation -Patient has walker at home but was not using at the time -I did strongly encourage more compliance with an assistive device after discharge Hyponatremia -Patient is on HCTZ at baseline -Will hold this and transition antihypertensives to include amlodipine instead of HCTZ -Repeat BMP in a.m. and if does not improve off HCTZ will pursue further workup Leukocytosis -Highly suspect this is reactive -No current signs of infection -Repeat lab in a.m. Normocytic anemia -This appears to be chronic and stable -Will monitor CKD stage IIIb -Baseline serum creatinine appears to run between 1.2 and 1.5 -1.39 on presentation -Discontinue HCTZ due to hyponatremia -Monitor closely -Given this we will avoid use of NSAIDs for pain management Vertigo -Continue home meclizine Hypertension -Continue home carvedilol -Continue home lisinopril -Discontinue HCTZ due to hyponatremia -Start amlodipine 5 mg daily -Monitor blood pressure GERD/hiatal hernia -Continue home PPI History of colon cancer -Remote -Stable Skin cancer -Undergoing current treatment -Overuse of topical medication caused current hair loss DVT prophylaxis -Subcu heparin 3 times daily Charges/Coding Visit Charges Inpatient E&M: 91096 Init Hosp L2
[2024-02-13 11:49] VITALS: BP 116/79
--- NOTE | 2024-02-13 16:09 | ED.RN ---
NO BED NUMBER ON TRACKER FOR ADMISSION TO MED SURG. PER DEANA, NS OK TO GO TO [phone]
[2024-02-13 16:34] VITALS: BP 137/76; PULSE 78; RESP 18; TEMP 37.1; O2SAT 99
[2024-02-13] MEDS: Heparin Injection (Vial) 5,000 UNIT/ML VIAL 5000 UNIT SC ×2 (17:25→22:05)
[2024-02-13] MEDS: Lactated Ringers 1,000 ML 75 ML IV (17:30)
[2024-02-13] MEDS: 0.9% Saline Lock 10 ML Syringe IV (17:33)
[2024-02-13] MEDS: Acetaminophen 500 MG Tablet 1000 MG PO (17:38)
[2024-02-13] MEDS: oxyCODONE 5 MG Tablet PO (17:48)
[2024-02-13] MEDS: Senna/Docusate Sodium 1 Tablet 2 TABLET PO (17:48)
[2024-02-13] MEDS: tiZANidine HCl 2 MG Tablet PO ×2 (17:52→22:06)
[2024-02-13 19:22] LABS: Vitamin D,25 Hydroxy 63.2 ng/mL
[2024-02-13 20:00] VITALS: PULSE 90
[2024-02-13 20:09] VITALS: BP 130/73; PULSE 53; RESP 18; TEMP 37.2; O2SAT 95
[2024-02-13] MEDS: Meclizine 12.5 MG Tablet PO (22:06)
[2024-02-14 02:20] VITALS: BP 110/66; PULSE 80; RESP 16; TEMP 36.9; O2SAT 93
[2024-02-14] MEDS: Heparin Injection (Vial) 5,000 UNIT/ML VIAL 5000 UNIT SC ×3 (05:42→21:11)
[2024-02-14] MEDS: Meclizine 12.5 MG Tablet PO ×3 (05:43→21:10)
[2024-02-14] MEDS: Acetaminophen 500 MG Tablet 1000 MG PO ×3 (05:43→21:10)
[2024-02-14] MEDS: tiZANidine HCl 2 MG Tablet PO ×3 (05:43→21:10)
[2024-02-14 05:46] VITALS: BMI 28.8
[2024-02-14 07:44] VITALS: BP 97/58; PULSE 78; RESP 16; TEMP 36.8; O2SAT 96
[2024-02-14] MEDS: Pantoprazole Sodium 40 MG Tablet PO (07:49)
[2024-02-14] MEDS: Polyethylene Glycol 3350 17 GM PACKET PO (07:49)
[2024-02-14] MEDS: Aspirin 81 MG TAB.CHEW PO (07:49)
[2024-02-14] MEDS: Citalopram 20 MG Tablet PO (07:49)
[2024-02-14 10:35] LABS: ALB/GLOB Ratio 0.9 RATIO (0.9-2.4); AST(SGOT) 18 U/L (15-37); Alanine Aminotransfer ALT/SGPT 18 U/L (13-56); Albumin, Serum 2.7 g/dL (3.2-5.0); Alkaline Phosphatase 54 U/L (45-117); Anion Gap 10 (5-15); BUN 16 mg/dL (7-18); Calcium,Total 8.3 mg/dL (8.5-10.1); Chloride 92 mmol/L (98-107); Creatinine, Serum 1.23 mg/dL (0.55-1.02); EST Glomerular Filtration Rate 44 mL/min (>60); Est Glom Filt Rate - Afr Amer 54 mL/min (>60); Estimated Creatinine Clearance 34.02 ml/min; Globulin 3.1 g/dL (2.2-4.2); Glucose 142 mg/dL (74-106); Magnesium 1.7 mg/dL (1.6-2.6); Phosphorus 2.8 mg/dL (2.5-4.9); Potassium 3.5 mmol/L (3.5-5.1); Protein, Total 5.8 g/dL (6.4-8.2); Sodium Level 125 mmol/L (136-145)
--- NOTE | 2024-02-14 10:36 | CASEMGMT ---
MILLICENT GRIJALVA Assessment Face to Face with patient for initial transition planning/care coordination assessment. MILLICENT GRIJALVA introduced self and role at [facility], pt voices understanding. Pt is A&Ox4 and is resting comfortably in the chair and is calm. Care providers, pharmacy, and demographics verified. Admitting dx: Pelvic Fx LACE Strata: 2 PCP: Chencho Emery Specialists: Denies Preferred Pharmacy: [facility] Insurance: [facility] A/B, MMO Prescription Benefit: Yes LNOK: Farshad Clarker (Son), Marcus Ann (Son). Pt also has 2 daughters - Rajendra Living Arrangements: Pt lives alone in a mobile home with 3 steps to enter with a handrail ADLs/IADLs: States ind Transportation: Pt states that she drives short distances. Pt reports that her children provide transportation too DME: [employer]. Shower chair. Medical alert information provided. HHC/SNF: Denies Hx. Pt states that she has been to OP Tx before through the [facility] Pt?s goal: Home with HHC Plan: At this time, the pt denies SNF needs. Pt states that she prefers to go home with [facility] and also that one of her children will be staying with her. Pt refuses a list of local in network C agencies and states that she prefers [facility] HH. Pt would like PT and OT and is willing to have SN come out as well. TC to Corina at and referral made. Awaiting return response. Report given to MS3 MILLICENT GRIJALVA. Ori Bennett RN, CM
[2024-02-14 14:01] VITALS: BP 142/92; PULSE 87; RESP 18; TEMP 37.3; O2SAT 98
[2024-02-14] MEDS: Carvedilol 25 MG Tablet PO (14:06)
--- NOTE | 2024-02-14 14:09 | CASEMGMT ---
Received tc from Corina at [facility], they are able to accept pt for SOC on Saturday. Updated pt.
--- NOTE | 2024-02-14 15:09 | CHAPLAIN ---
Type of Pastoral Visit _x__ Initial Visit ___ Follow-up Visit ___ On-call Visit ___ General Patient Visit ___ Spiritual Assessment ___ Family Conference ___ Bereavement ___ Rapid Response ___ Code Blue ___ Other (describe below) Pastoral Care Referral From _x__ Patient ___ Family ___ Nurse ___ Physician ___ Preschool Teacher Aide ___ Sawmill Hand ___ Other (describe below) Sacrament/Intervention _x__ Active listening ___ Anointing ___ Jain ___ Bereavement ___ Communion _x__ Diana exploration ___ ___ Life review _x__ Prayer ___ Reconciliation ___ Sacrament of Sick _x__ Supportive presence ___ Wedding ___ Other (describe below) Pastoral Comments patient is optimistic and feels she is doing very well in recovery from a fall; pt has family support and feels confident in their care for her; pt is talkative about her mandaeism and diana which leads to more conversation about the status of the world and its concerns; prayer and presence
--- NOTE | 2024-02-14 16:07 | PN.HOSP_ITS ---
Reason for Visit Reason for Visit: Inability to walk status post mechanical fall Subjective Subjective Patient states she is feeling much better with medications we have been giving her. She did quite well with therapy and they feel she can go home with home health. Sodium is still low and actually dropped a bit from admission which is somewhat of a surprise. She was given IV fluids in the emergency department so could be related to this. Continue to hold hydrochlorothiazide. Blood pressure stable on transition from HCTZ to amlodipine. Patient is anxious to go home but understands the need for holding discharge due to sodium issues. Objective Data Objective Data Vital Signs: Vital Signs Temp Pulse Resp BP Pulse Ox O2 Del Method 99.2 F H 87 18 142/92 H 98 Room Air 02/14/24 14:01 02/14/24 14:01 02/14/24 14:01 02/14/24 14:01 02/14/24 14:01 02/14/24 14:01 Oxygen Delivery Method Room Air Weight: 76.2 kg Body Mass Index (BMI) 28.8 Intake & Output: Intake and Output for Last 24 Hours 02/12/24 02/13/24 02/14/24 23:59 23:59 23:59 Intake Total 7 / 2097 Output Total 100 / 100 Balance 1996 Lab / Micro Data 02/13/24 10:18 02/14/24 08:05 Labs: Laboratory Results - last 24 hr 02/13/24 18:49: Vitamin D 25-Hydroxy 63.2 02/14/24 08:05: Sodium 125 L, Potassium 3.5, Chloride 92 L, Carbon Dioxide 23.0, Anion Gap 10, BUN 16, Creatinine 1.23 H, Estim Creat Clear Calc 34.02, Est GFR (MDRD) Af Amer 54 L, Est GFR (MDRD) Non-Af 44 L, BUN/Creatinine Ratio 13.0, G lucose 142 H, Uric Acid 4.0, Calcium 8.3 L, Phosphorus 2.8, Magnesium 1.7, Total Bilirubin 0.50, AST 18, ALT 18, Alkaline Phosphatase 54, Total Protein 5.8 L, A lbumin 2.7 L, Globulin 3.1, Albumin/Globulin Ratio 0.9, TSH 3.220 Physical Exam Const alert, oriented x3, no apparent distress and well nourished Constitutional Narrative: Very pleasant, elderly, white female, sitting up in bed, family at bedside, currently appears comfortable, nontoxic General Appearance: cooperative HEENT normocephalic, head/scalp atraumatic, hearing grossly normal bilaterally and moist oral mucous membranes Eyes PERRL, EOMs intact bilaterally and conjunctivae normal Eyes Narrative: No scleral icterus Neck no lymphadenopathy and supple Neck Narrative: Trachea midline, no thyroid enlargement Resp normal respiratory effort, no retractions, no use of accessory muscles and clear to auscultation bilaterally Auscultation: Negative for crackles, rhonchi or wheezes Cardio regular rate, regular rhythm, S1 normal heart sound, S2 normal heart sound, no murmurs, no rub, no gallops and no clicks GI normal to inspection, nondistended, normoactive bowel sounds, soft to palpation and non-tender Extremity no clubbing, cyanosis or edema Extremity Narrative: ecchymosis and abrasion of the R elbow(mild), pain with active movement of R LE Skin Skin Narrative: Skin cancer of Left face and R nasal bridge Neuro oriented x3 and no focal motor deficits Neuro Narrative: decreased R LE movement 2/2 pain Speech: speech normal Psych affect normal Psych Narrative: very pleasant Assessment & Plan Assessment/Plan (1) Hyponatremia: (2) Closed pelvic fracture: (3) Anemia: (4) Leukocytosis: PLAN: Plan Nondisplaced right superior and inferior pubic ramus fracture -Nonsurgical -Scheduled Tylenol -As needed oxycodone -As needed tizanidine -Vitamin D level is within normal limits -Weightbearing as tolerated -PT/OT feel she can go home with home health -Patient has not been compliant with using walker at home and we discussed this at the time of admission--> patient agreeable to use a walker after discharge -Bowel regimen Mechanical fall -Patient states she lost her balance which happens intermittently upon turning -PT/OT following -Patient has walker at home but was not using at the time -I did strongly encourage more compliance with an assistive device after discharge Hyponatremia -Continue to hold HCTZ -Sodium currently down from 1 27-1 25 -Serum osmolality, urine osmolality, uric acid, TSH, cortisol, UA, and urine sodium are pending -Will fluid restrict to 1500 cc for now Normocytic anemia -This appears to be chronic and stable -Will monitor CKD stage IIIb -Baseline serum creatinine appears to run between 1.2 and 1.5 -1.39 on presentation and 1.23 today -Discontinue HCTZ due to hyponatremia -Monitor closely -Given this we will avoid use of NSAIDs for pain management Vertigo -Continue home meclizine Hypertension -Continue home carvedilol -Continue home lisinopril -Discontinue HCTZ due to hyponatremia -cont Amlodipine -Monitor blood pressure GERD/hiatal hernia -Continue home PPI History of colon cancer -Remote -Stable Skin cancer -Undergoing current treatment -Overuse of topical medication caused current hair loss DVT prophylaxis -Subcu heparin 3 times daily Charges/Coding Visit Charges Inpatient E&M: 79626 Subs Hosp L2
[2024-02-14 20:11] VITALS: BP 137/80; PULSE 71; RESP 18; TEMP 37.2; O2SAT 98
[2024-02-14 20:33] LABS: Osmolality, Serum 261 mOsm/KG (280-301)
[2024-02-14] MEDS: MELATONIN 10 MG TABLET PO (21:10)
[2024-02-15 02:13] VITALS: BP 123/74; PULSE 61; RESP 16; TEMP 36.6; O2SAT 99
[2024-02-15 02:42] LABS: Bacteria 0 SEEN /hpf (None Seen); Mucous, Urine 0 SEEN /hpf (<or=2+); Red Blood Cells-Urine 0 SEEN /hpf (0-5)
[2024-02-15 02:44] LABS: Color, Urine Yellow (Yellow); Glucose, Dipstick Normal (Normal); Ketone-Dipstick Negative (Negative); Leukocyte Esterase-Dipstick 25 /ul (Negative); Nitrite-Dipstick Negative (Negative); Occult Blood-Urine Negative /ul (Negative); Protein-Dipstick Negative (Negative); Urine Bilirubin Dipstick Negative (Negative); Urine Clarity Clear (Clear); Urine Urobilinogen Normal (Normal); Urine pH 6.5 (5.0 - 8.0)
[2024-02-15 02:57] LABS: Squamous Epithelial Cells - UA 5-10 SEEN /hpf (5-10); White Blood Cells 0-5 SEEN /hpf (0-5)
[2024-02-15 02:59] LABS: Urine Sodium 23 mmol/L (Not Establ.)
[2024-02-15 03:26] LABS: Osmolality, Urine 261 mOsm/KG
[2024-02-15 05:52] LABS: Hematocrit 25.9 % (37-47); Hemoglobin 9.2 g/dL (12.0-15.0); Mean Corp Hgb Conc 35.5 g/dL (32-36); Mean Corpuscular Hgb 32.5 pg (27.0-32.0); Mean Corpuscular Volume 91.5 fL (81-99); Mean Platelet Vol. 9.2 fl (6.2-12.0); Platelet Count 205 K/mm3 (150-450); RBC Distribution Width CV 12.6 % (11.6-14.6); RBC Distribution Width SD 42.5 fl (35.1-43.9); Red Blood Count 2.83 M/mm3 (4.2-5.4); White Blood Count 6.9 K/mm3 (4.4-11.0)
[2024-02-15 06:01] VITALS: BP 131/70; PULSE 63; RESP 16; TEMP 36.8; O2SAT 97
[2024-02-15 06:09] LABS: Anion Gap 8 (5-15); BUN 16 mg/dL (7-18); BUN/Creat Ratio 15.8 RATIO (10-20); Calcium,Total 8.3 mg/dL (8.5-10.1); Chloride 91 mmol/L (98-107); Creatinine, Serum 1.01 mg/dL (0.55-1.02); EST Glomerular Filtration Rate 56 mL/min (>60); Est Glom Filt Rate - Afr Amer 67 mL/min (>60); Estimated Creatinine Clearance 41.43 ml/min; Glucose 108 mg/dL (74-106); Sodium Level 123 mmol/L (136-145)
[2024-02-15] MEDS: Meclizine 12.5 MG Tablet PO ×3 (06:09→21:31)
[2024-02-15] MEDS: Acetaminophen 500 MG Tablet 1000 MG PO ×3 (06:10→21:32)
[2024-02-15] MEDS: tiZANidine HCl 2 MG Tablet PO ×3 (06:10→21:31)
[2024-02-15] MEDS: Heparin Injection (Vial) 5,000 UNIT/ML VIAL 5000 UNIT SC ×3 (06:13→21:32)
[2024-02-15] MEDS: 0.9% Saline Lock 10 ML Syringe IV ×2 (06:14→15:43)
[2024-02-15 08:24] VITALS: BP 117/64; PULSE 67; RESP 18; TEMP 36.8; O2SAT 94
[2024-02-15] MEDS: Aspirin 81 MG TAB.CHEW PO (08:40)
[2024-02-15] MEDS: Carvedilol 25 MG Tablet PO (08:40)
[2024-02-15] MEDS: amLODIPine 5 MG Tablet PO (08:42)
[2024-02-15] MEDS: Lisinopril 20 MG Tablet PO (08:43)
[2024-02-15] MEDS: Pantoprazole Sodium 40 MG Tablet PO (08:43)
[2024-02-15] MEDS: Sodium Chloride 1 GM Tablet PO ×2 (08:47→21:31)
[2024-02-15 08:52] VITALS: O2SAT 95
[2024-02-15 11:40] LABS: Sodium Level 123 mmol/L (136-145)
--- NOTE | 2024-02-15 12:13 | PN.HOSP_ITS ---
Reason for Visit Reason for Visit: Inability ambulate status post mechanical fall Subjective Subjective No issues overnight. Patient states her pain continues to be in control. We did discuss that her sodium went down despite discontinuing her HCTZ. Labs look like this is either medication or SIADH. She was also on Celexa and SSRIs can induce hyponatremia so we will discontinue this as well. I have also put her on a fluid restricted diet at 1250 cc per day and gave her salt tabs twice daily. She voiced understanding and is okay with staying for another day. I did indicate I would like to see her sodium stabilized and started to trend upward before discharge. Objective Data Objective Data Vital Signs: Vital Signs Temp Pulse Resp BP Pulse Ox O2 Del Method 98.3 F 67 18 117/64 95 Room Air 02/15/24 08:24 02/15/24 08:24 02/15/24 08:24 02/15/24 08:24 02/15/24 08:52 02/15/24 08:52 Oxygen Delivery Method Room Air Weight: 76.2 kg Body Mass Index (BMI) 28.8 Intake & Output: Intake and Output for Last 24 Hours 02/13/24 02/14/24 02/15/24 23:59 23:59 23:59 Intake Total 2297 / 2297 200 / 200 Output Total 100 / 100 Balance 2197 / 2197 200 / 200 Lab / Micro Data 02/15/24 05:28 02/15/24 11:25 Labs: Laboratory Results - last 24 hr 02/14/24 08:05: Serum Osmolality 261 L, Uric Acid 4.0 02/14/24 13:00: Urine Color Yellow, Urine Clarity Clear, Urine pH 6.5, Ur Specific [place] 1.010, Urine Protein Negative, Urine Glucose (UA) Normal, Urine Ketones Negative, Urine Occult Blood Negative, Urine Nitrite Negative, Urine Bilirubin Negative, Urine Urobilinogen Normal, Ur Leukocyte Esterase 25 H, Urine RBC 0 SEEN, Urine WBC 0-5 SEEN, Ur Squamous Epith Cells 5-10 SEEN, Urine Bacteria 0 SEEN, Urine Mucus 0 SEEN, Urine Osmolality 261, Ur Random Sodium 23 02/15/24 05:28: WBC 6.9, RBC 2.83 L, Hgb 9.2 L, Hct 25.9 L, MCV 91.5, MCH 32.5 H , MCHC 35.5, RDW Std Deviation 42.5, RDW Coeff of Raciel 12.6, Plt Count 205, MPV 9.2, Sodium 123 L, Potassium 4.0, Chloride 91 L, Carbon Dioxide 24.0, Anion Gap 8, BUN 16, Creatinine 1.01, Estim Creat Clear Calc 41.43, Est GFR (MDRD) Af Amer 67, Est GFR (MDRD) Non-Af 56 L, BUN/Creatinine Ratio 15.8, Glucose 108 H, C alcium 8.3 L 02/15/24 11:25: Sodium 123 L Physical Exam Const alert, oriented x3, no apparent distress, healthy appearing and well nourished Constitutional Narrative: Very pleasant, elderly, white female, sitting up in bed, currently appears comfortable, nontoxic General Appearance: cooperative HEENT normocephalic, head/scalp atraumatic, hearing grossly normal bilaterally and moist oral mucous membranes Resp normal respiratory effort, no retractions, no use of accessory muscles and clear to auscultation bilaterally Auscultation: Negative for crackles, rhonchi or wheezes Cardio regular rate, regular rhythm, S1 normal heart sound, S2 normal heart sound, no murmurs, no rub, no gallops and no clicks GI normal to inspection, nondistended, normoactive bowel sounds, soft to palpation and non-tender Extremity no clubbing, cyanosis or edema Extremity Narrative: ecchymosis and abrasion of the R elbow(mild) Neuro oriented x3 and no focal motor deficits Speech: speech normal Psych affect normal Psych Narrative: very pleasant Assessment & Plan Assessment/Plan (1) Hyponatremia: (2) Closed pelvic fracture: (3) Anemia: (4) Leukocytosis: PLAN: Plan Euvolemic hyponatremia -Sodium continues to trend down despite holding HCTZ -In addition we will also hold Celexa as SSRIs are known to cause hyponatremia -Sodium trends are 127-->125-->123 -Serum osmolality was low with normal urine osmolality and urine sodium greater than 23, uric acid was within normal limits and I suspect this is drug related however unable to rule out SIADH completely -Change fluid restriction to 1250 cc/day -Add salt tablets 1 twice daily -Once sodium stabilizes or starts to trend up will discharge home with outpatient BMP for early next week Nondisplaced right superior and inferior pubic ramus fracture -Patient is doing extremely well with regards to this -Nonsurgical -Scheduled Tylenol -As needed oxycodone -As needed tizanidine -Vitamin D level is within normal limits -Weightbearing as tolerated -PT/OT feel she can go home with home health -Patient has not been compliant with using walker at home and we discussed this at the time of admission--> patient agreeable to use a walker after discharge -Bowel regimen Mechanical fall -Patient states she lost her balance which happens intermittently upon turning -PT/OT following -Patient has walker at home but was not using at the time -I did strongly encourage more compliance with an assistive device after discharge Normocytic anemia -Will monitor CKD stage IIIb -Baseline serum creatinine appears to run between 1.2 and 1.5 -1.39 on presentation and 1.23 today -Discontinue HCTZ due to hyponatremia -Monitor closely -Given this we will avoid use of NSAIDs for pain management Vertigo -Continue home meclizine Hypertension -Blood pressures do remain stable with transition in antihypertensive due to hyponatremia -Continue home carvedilol -Continue home lisinopril -Discontinue HCTZ due to hyponatremia -cont Amlodipine -Monitor blood pressure GERD/hiatal hernia -Continue home PPI History of colon cancer -Remote -Stable Depression -Stop home Celexa with worsening hyponatremia Skin cancer -Undergoing current treatment -Overuse of topical medication caused current hair loss DVT prophylaxis -Subcu heparin 3 times daily Charges/Coding Visit Charges Inpatient E&M: 07821 Subs Hosp L2
[2024-02-15 15:22] VITALS: BP 96/51; PULSE 68; RESP 18; TEMP 36.6; O2SAT 94
[2024-02-15] MEDS: MELATONIN 10 MG TABLET PO (21:31)
[2024-02-15 21:39] VITALS: BP 97/65; PULSE 71; RESP 18; TEMP 36.6; O2SAT 96
[2024-02-16 03:38] VITALS: BP 106/62; PULSE 64; RESP 16; TEMP 36.7; O2SAT 99
[2024-02-16] MEDS: Acetaminophen 500 MG Tablet 1000 MG PO ×2 (05:28→14:49)
[2024-02-16] MEDS: tiZANidine HCl 2 MG Tablet PO ×2 (05:29→14:49)
[2024-02-16] MEDS: Heparin Injection (Vial) 5,000 UNIT/ML VIAL 5000 UNIT SC (05:30)
[2024-02-16] MEDS: Meclizine 12.5 MG Tablet PO ×2 (05:33→14:51)
[2024-02-16 07:19] LABS: Anion Gap 7 (5-15); BUN 20 mg/dL (7-18); BUN/Creat Ratio 17.5 RATIO (10-20); Calcium,Total 8.9 mg/dL (8.5-10.1); Chloride 95 mmol/L (98-107); Creatinine, Serum 1.14 mg/dL (0.55-1.02); EST Glomerular Filtration Rate 48 mL/min (>60); Est Glom Filt Rate - Afr Amer 58 mL/min (>60); Estimated Creatinine Clearance 36.71 ml/min; Glucose 109 mg/dL (74-106); Potassium 4.3 mmol/L (3.5-5.1); Sodium Level 125 mmol/L (136-145)
[2024-02-16 08:03] VITALS: O2SAT 94
[2024-02-16 09:09] VITALS: BP 110/64; PULSE 77; RESP 18; TEMP 36.6; O2SAT 98
[2024-02-16] MEDS: Sodium Chloride 1 GM Tablet PO (09:21)
[2024-02-16] MEDS: Pantoprazole Sodium 40 MG Tablet PO (09:21)
[2024-02-16] MEDS: Carvedilol 25 MG Tablet PO (09:21)
[2024-02-16] MEDS: Aspirin 81 MG TAB.CHEW PO (09:21)
[2024-02-16] MEDS: Lisinopril 20 MG Tablet PO (09:21)
--- NOTE | 2024-02-16 12:35 | DS.PCM_ITS ---
Providers Date of Admission: 02/13/24 Primary Care Physician: Dr. Chencho Emery MD Reason For Visit: PELVIC FRACTURE WITH ABILILTY TO WALK/HYPONATEMIA Diagnosis Discharge Diagnosis (1) Hyponatremia: Status: Acute Code(s): E87.1 - Hypo-osmolality and hyponatremia (2) Closed pelvic fracture: Status: Acute Code(s): S32.9XXA - Fracture of unspecified parts of lumbosacral spine and pelvis, initial encounter for closed fracture (3) Anemia: Status: Acute Code(s): D64.9 - Anemia, unspecified (4) Leukocytosis: Status: Acute Code(s): D72.829 - Elevated white blood cell count, unspecified Plan Euvolemic hyponatremia -Sodium continues to trend down despite holding HCTZ -In addition we will also hold Celexa as SSRIs are known to cause hyponatremia -Sodium trends are 127-->125-->123 -Serum osmolality was low with normal urine osmolality and urine sodium greater than 23, uric acid was within normal limits and I suspect this is drug related however unable to rule out SIADH completely -Change fluid restriction to 1250 cc/day -Add salt tablets 1 twice daily -Once sodium stabilizes or starts to trend up will discharge home with outpatient BMP for early next week Nondisplaced right superior and inferior pubic ramus fracture -Patient is doing extremely well with regards to this -Nonsurgical -Scheduled Tylenol -As needed oxycodone -As needed tizanidine -Vitamin D level is within normal limits -Weightbearing as tolerated -PT/OT feel she can go home with home health -Patient has not been compliant with using walker at home and we discussed this at the time of admission--> patient agreeable to use a walker after discharge -Bowel regimen Mechanical fall -Patient states she lost her balance which happens intermittently upon turning -PT/OT following -Patient has walker at home but was not using at the time -I did strongly encourage more compliance with an assistive device after discharge Normocytic anemia -Will monitor CKD stage IIIb -Baseline serum creatinine appears to run between 1.2 and 1.5 -1.39 on presentation and 1.23 today -Discontinue HCTZ due to hyponatremia -Monitor closely -Given this we will avoid use of NSAIDs for pain management Vertigo -Continue home meclizine Hypertension -Blood pressures do remain stable with transition in antihypertensive due to hyponatremia -Continue home carvedilol -Continue home lisinopril -Discontinue HCTZ due to hyponatremia -cont Amlodipine -Monitor blood pressure GERD/hiatal hernia -Continue home PPI History of colon cancer -Remote -Stable Depression -Stop home Celexa with worsening hyponatremia Skin cancer -Undergoing current treatment -Overuse of topical medication caused current hair loss DVT prophylaxis -Subcu heparin 3 times daily Medications at Discharge Home Medications lisinopril 20 mg tablet 20 mg PO DAILY blood pressure #90 tabs 04/09/19 meclizine 12.5 mg tablet 12.5 mg PO BID-TID vertigo 04/09/19 [id number] 8 mg-folic 400 mcg-K 50 mcg-lutein 300 mcg tablet (Centrum Silver Women) 1 tab PO DAILY supplement 04/09/19 carvedilol 12.5 mg tablet 25 mg PO DAILY heart 06/30/21 aspirin 81 mg chewable tablet (Aspirin Childrens) 1 tab PO DAILY heart health 02/13/24 omeprazole 40 mg capsule,delayed release 40 mg PO DAILY gerd 02/13/24 acetaminophen 500 mg tablet 1,000 mg (2 x 500 mg) PO Q8 #0 tabs 02/16/24 oxycodone 5 mg tablet 5 mg PO Q6H PRN pain 5 days #20 tabs 02/16/24 sodium chloride 1,000 mg soluble tablet 1,000 mg PO BID #60 tabs 02/16/24 tizanidine 2 mg tablet 2 mg PO Q8 #21 tabs 02/16/24 Weight / BMI Weight Weight: 76.2 kg Body Mass Index (BMI) 28.8 ABG / Lab / Microbiology Data 02/15/24 05:28 02/16/24 05:30 Laboratory: Laboratory Results - last 24 hr 02/16/24 05:30: Sodium 125 L, Potassium 4.3, Chloride 95 L, Carbon Dioxide 23.0, Anion Gap 7, BUN 20 H, Creatinine 1.14 H, Estim Creat Clear Calc 36.71, Est GFR (MDRD) Af Amer 58 L, Est GFR (MDRD) Non-Af 48 L, BUN/Creatinine Ratio 17.5, G lucose 109 H, Calcium 8.9 Meaningful Use Info Ischemic Stroke Statin Dosing Therapy Reference: STATIN DOSE THERAPY REFERENCE: * Patients > 75 years receive moderate or high dose statin therapy. * Patients 75 years or YOUNGER should receive HIGH intensity statin dose unless contraindicated. You will be required to document reason for non-treatment if statin daily dose does not meet guidelines. HIGH DOSE STATIN THERAPY DAILY Atorvastatin > than or = to 40 mg Rosuvastatin > than or = to 20 mg Amlodipine + Atorvastatin > than or = to 2.5/40 mg Ezetimibe + Simvastatin 10/80 mg Simvastatin 80mg Discharge Plan Admission Admit Date/Time: 02/13/24 11:28 Primary Reason for Your Visit: Pelvic pain after fall Attending Provider: Ayaka Cuba Primary Care Provider: Chencho Emery Instructions Additional Instructions / Restrictions: 1. Continue Tylenol 1000 mg 3 times daily for 2 weeks then transition to as needed Tylenol 2. Stop your Celexa and HCTZ 3. Monitor your fluid intake and try to take in no more than 1.5 L daily 4. Please use a walker at all times to ambulate 5. Please call your primary care physician's office on Saturday and asked that a basic metabolic profile be obtained by home health within the next 3 to 5 days to recheck your sodium level 6. Call nephrology office below to schedule follow-up for your low sodium level 7. I highly suspect your dizziness that you have been experiencing is related to low blood pressures as we have been able to stop your HCTZ and not add any new medication with adequately controlled blood pressures. Assess to see if this change has made a difference. Discharge Orders/Prescriptions Prescriptions: New oxycodone 5 mg Tablet 5 mg PO Q6H PRN (Reason: pain) 5 Days Qty: 20 0RF sodium chloride 1,000 mg Tablet,Soluble 1,000 mg PO BID Qty: 60 0RF tizanidine 2 mg Tablet 2 mg PO Q8 Qty: 21 0RF acetaminophen 500 mg Tablet 1,000 mg PO Q8 Qty: 0 0RF Rx Instructions: Would continue taking 1000 mg 3 times daily for 2 weeks then try to take as needed Continued lisinopril 20 mg tablet 20 mg PO DAILY Qty: 90 3RF Held omeprazole 40 mg capsule,delayed release(DR/EC) 40 mg PO DAILY Hold Instructions: Hold and see if you have any symptoms of acid reflux if not discontinue Discontinued hydrochlorothiazide 25 mg tablet 25 mg PO DAILY citalopram 20 mg tablet 20 mg PO DAILY No Action [facility] 8 mg iron-400 mcg-300 mcg tablet 1 tab PO DAILY meclizine 12.5 mg tablet 12.5 mg PO BID-TID carvedilol 12.5 mg tablet 25 mg PO DAILY aspirin [Aspirin Childrens] 81 mg tablet,chewable 1 tab PO DAILY Referrals / Follow Up: Chencho Emery MD [Primary Care Provider] - Within 2 Weeks Noelle Ashley MD [Med Staff - Consulting] - Within 2 Weeks (Call to schedule an appointment for first available) Disposition Disposition (needs filled in before D/C Order can be placed): Home Health Service
--- NOTE | 2024-02-16 12:35 | PCM.DC.SUM ---
Providers Date of Admission: 02/13/24 Date of Discharge: 02/16/24 Primary Care Physician: Dr. Chencho Emery MD Reason For Visit: PELVIC FRACTURE WITH ABILILTY TO WALK/HYPONATEMIA Diagnosis Discharge Diagnosis (1) Hyponatremia: Status: Acute Code(s): E87.1 - Hypo-osmolality and hyponatremia (2) Closed pelvic fracture: Status: Acute Code(s): S32.9XXA - Fracture of unspecified parts of lumbosacral spine and pelvis, initial encounter for closed fracture (3) Anemia: Status: Acute Code(s): D64.9 - Anemia, unspecified (4) Leukocytosis: Status: Acute Code(s): D72.829 - Elevated white blood cell count, unspecified Medications at Discharge Home Medications lisinopril 20 mg tablet 20 mg PO DAILY blood pressure #90 tabs 04/09/19 meclizine 12.5 mg tablet 12.5 mg PO BID-TID vertigo 04/09/19 [id number] 8 mg-folic 400 mcg-K 50 mcg-lutein 300 mcg tablet (Centrum Silver Women) 1 tab PO DAILY supplement 04/09/19 carvedilol 12.5 mg tablet 25 mg PO DAILY heart 06/30/21 aspirin 81 mg chewable tablet (Aspirin Childrens) 1 tab PO DAILY heart health 02/13/24 omeprazole 40 mg capsule,delayed release 40 mg PO DAILY gerd 02/13/24 acetaminophen 500 mg tablet 1,000 mg (2 x 500 mg) PO Q8 #0 tabs 02/16/24 oxycodone 5 mg tablet 5 mg PO Q6H PRN pain 5 days #20 tabs 02/16/24 sodium chloride 1,000 mg soluble tablet 1,000 mg PO BID #60 tabs 02/16/24 tizanidine 2 mg tablet 2 mg PO Q8 #21 tabs 02/16/24 Hospital Course Operations None Procedures - (Elbow x-ray/hip and pelvis x-ray) Summary of Care Provided Minutes Spent on Discharge: 37 Hospital Course: MARIELY PAL is a 83 F who presented to the emergency department at [facility] on 02/13/2024 after sustaining a mechanical fall at home that resulted in pain with ambulation. Patient was not using her walker or an assistive device at the time of her fall. She stated she just lost her balance and fell over. She fell onto her right side and had pain in her right elbow and right pelvic region. She was able to get up independently utilizing a walker but had trouble ambulating so was brought to the emergency department. Vital signs on presentation showed a temperature of 98.4, heart rate 76, blood pressure 129/78, respiratory 16 oxygen saturation was 99% on room air. Her CBC showed a leukocytosis with a white count of 11.6, anemia with a hemoglobin of 11.8 and a left shift was present at 79.2. Her chemistry panel showed hyponatremia with a sodium of 127 (baseline previously has been in the 130s to 140s), serum creatinine was elevated 1.39 which is within her baseline. Hip and pelvic x-ray showed a nondisplaced fracture along the medial aspect of the right superior and inferior pubic ramus. Right elbow fractures showed subcutaneous edema but no bony abnormality. Given her inability to ambulate independently and ongoing pain as well as the findings of new hyponatremia she was felt she required admission to the hospital for ongoing services. She was admitted to the medical floor. She was given 1 L of IV fluids in the emergency department and was noted to be on HCTZ. This was held due to her hyponatremia on admission and repeat sodium was obtained the next morning which went down to 125. She was placed on fluid restriction, started on salt tablets, and her Celexa was discontinued as her urine studies were consistent with euvolemic hyponatremia but not entirely consistent with SIADH. It was felt that it was either SIADH or medication related. With this treatment her sodium did start to improve with the faith being 123 and her discharge sodium being 125. Her hyponatremia was fairly asymptomatic throughout her hospitalization. At discharge we discontinued her Celexa and HCTZ, continued the sodium tablets twice daily and asked her to restrict her fluid to 1500 cc daily. She has to obtain a follow-up basic metabolic profile within the next 3 to 5 days to recheck her sodium level but we did feel comfortable sending her home as she was trending up at this time and persisted to be asymptomatic. The patient did complain of having intermittent lightheadedness/vertigo at home this sounded very positional and despite us discontinuing her HCTZ with no additional medications her blood pressures were found to be well-controlled just on the carvedilol and lisinopril. No new medications were added with regards to her blood pressure at the time of discharge and I do suspect may be some of her dizziness may be related to orthostatic hypotension. She is to monitor for ongoing symptoms after discontinuation of her HCTZ. With regards to her pelvic fracture, this is a stable fracture and she was doing quite well with the pain regimen we had her on to include scheduled Tylenol, low-dose scheduled tizanidine, and as needed oxycodone. We sent her home with prescriptions for the oxycodone and tizanidine and have asked her to continue the Tylenol scheduled for another 2 weeks and then try to take it as needed to follow. She also was advised to continue using a walker on a regular basis for now until instructed otherwise by physical therapy. During her hospitalization she was seen by physical and Occupational Therapy and did surprisingly quite well and they felt she was able to go home with home health. This was set up for her and will start early next week. I have asked that a basic metabolic profile be obtained within the next 3 to 5 days by the home health and discussed this with the patient. She will call her primary care physician and ask for a order for this to be performed and reviewed. Patient was discharged home in stable condition on 02/16/2024. I have also asked her to follow-up with her primary care physician within the next 2 weeks and with nephrology at first availability for assistance with her sodium issues. 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 Nondisplaced right superior and inferior pubic ramus fracture Mechanical fall Intermittent dizziness/vertigo Normocytic anemia CKD stage IIIb Essential hypertension GERD/hiatal hernia History of colon cancer Depression History of skin cancer Physical Exam Const alert, oriented x3, no apparent distress, average body habitus, no limitations, healthy appearing and well nourished Constitutional Narrative: Very pleasant, elderly, white female, sitting up in bed, currently appears comfortable, nontoxic General Appearance: cooperative, comfortable, well kempt and well developed Exam Limitations: no limitations HEENT normocephalic, head/scalp atraumatic, hearing grossly normal bilaterally and moist oral mucous membranes HEENT Narrative: Mallampati 2, no thrush Eyes PERRL, EOMs intact bilaterally and conjunctivae normal Eyes Narrative: No scleral icterus Neck no lymphadenopathy and supple Neck Narrative: Trachea midline, no thyroid enlargement Resp normal respiratory effort, no retractions, no use of accessory muscles and clear to auscultation bilaterally Auscultation: Negative for crackles, rhonchi or wheezes Cardio regular rate, regular rhythm, S1 normal heart sound, S2 normal heart sound, no murmurs, no rub, no gallops and no clicks GI normal to inspection, nondistended, normoactive bowel sounds, soft to palpation and non-tender Extremity no clubbing, cyanosis or edema Skin No no rashes or lesions noted, No no wounds, skin turgor normal and no jaundice Skin Narrative: Skin cancer of Left face and R nasal bridge, bruise to right elbow with small abrasion Neuro oriented x3, CN's II-XII intact bilaterally and no focal motor deficits Neuro Narrative: decreased R LE movement 2/2 pain Speech: speech normal Psych affect normal Psych Narrative: very pleasant Weight / BMI Weight Weight: 76.2 kg Body Mass Index (BMI) 28.8 ABG / Lab / Microbiology Data 02/15/24 05:28 02/16/24 05:30 Laboratory: Laboratory Results - last 24 hr 02/16/24 05:30: Sodium 125 L, Potassium 4.3, Chloride 95 L, Carbon Dioxide 23.0, Anion Gap 7, BUN 20 H, Creatinine 1.14 H, Estim Creat Clear Calc 36.71, Est GFR (MDRD) Af Amer 58 L, Est GFR (MDRD) Non-Af 48 L, BUN/Creatinine Ratio 17.5, Glucose 109 H, Calcium 8.9 D/C Instructions Discharge Diet: Low fat / Low cholesterol Discharge Activity: Use Walker Meaningful Use Info Meaningful Use Meaningful Use Diagnoses (Choose all that apply): None applicable Ischemic Stroke Statin Dosing Therapy Reference: STATIN DOSE THERAPY REFERENCE: * Patients > 75 years receive moderate or high dose statin therapy. * Patients 75 years or YOUNGER should receive HIGH intensity statin dose unless contraindicated. You will be required to document reason for non-treatment if statin daily dose does not meet guidelines. HIGH DOSE STATIN THERAPY DAILY Atorvastatin > than or = to 40 mg Rosuvastatin > than or = to 20 mg Amlodipine + Atorvastatin > than or = to 2.5/40 mg Ezetimibe + Simvastatin 10/80 mg Simvastatin 80mg Discharge Plan Admission Admit Date/Time: 02/13/24 11:28 Primary Reason for Your Visit: Pelvic pain after fall Attending Provider: Ayaka Cuba Primary Care Provider: Chencho Emery Instructions Additional Instructions / Restrictions: 1. Continue Tylenol 1000 mg 3 times daily for 2 weeks then transition to as needed Tylenol 2. Stop your Celexa and HCTZ 3. Monitor your fluid intake and try to take in no more than 1.5 L daily 4. Please use a walker at all times to ambulate 5. Please call your primary care physician's office on Saturday and asked that a basic metabolic profile be obtained by home health within the next 3 to 5 days to recheck your sodium level 6. Call nephrology office below to schedule follow-up for your low sodium level 7. I highly suspect your dizziness that you have been experiencing is related to low blood pressures as we have been able to stop your HCTZ and not add any new medication with adequately controlled blood pressures. Assess to see if this change has made a difference. Discharge Orders/Prescriptions Prescriptions: New oxycodone 5 mg Tablet 5 mg PO Q6H PRN (Reason: pain) 5 Days Qty: 20 0RF sodium chloride 1,000 mg Tablet,Soluble 1,000 mg PO BID Qty: 60 0RF tizanidine 2 mg Tablet 2 mg PO Q8 Qty: 21 0RF acetaminophen 500 mg Tablet 1,000 mg PO Q8 Qty: 0 0RF Rx Instructions: Would continue taking 1000 mg 3 times daily for 2 weeks then try to take as needed Continued lisinopril 20 mg tablet 20 mg PO DAILY Qty: 90 3RF Held omeprazole 40 mg capsule,delayed release(DR/EC) 40 mg PO DAILY Hold Instructions: Hold and see if you have any symptoms of acid reflux if not discontinue Discontinued hydrochlorothiazide 25 mg tablet 25 mg PO DAILY citalopram 20 mg tablet 20 mg PO DAILY No Action Centrum Silver Women 8 mg iron-400 mcg-300 mcg tablet 1 tab PO DAILY meclizine 12.5 mg tablet 12.5 mg PO BID-TID carvedilol 12.5 mg tablet 25 mg PO DAILY aspirin [Aspirin Childrens] 81 mg tablet,chewable 1 tab PO DAILY Referrals / Follow Up: Chencho Emery MD [Primary Care Provider] - Within 2 Weeks Noelle Ashley MD [Med Staff - Consulting] - Within 2 Weeks (Call to schedule an appointment for first available) Disposition Disposition (needs filled in before D/C Order can be placed): Home Health Service Charges/Coding Visit Charges Inpatient E&M: 65437 Disch Hosp >30min
[2024-02-16 14:43] VITALS: BP 105/59; PULSE 70; RESP 18; TEMP 36.2; O2SAT 99
== END 2024-02-16 15:04 | disposition home health service (06) | DRG 536 ==
LOC: ED 11:41 → MS3 15:51
PROVIDERS: Admitting Provider Internal Medicine; Emergency Provider Emergency Medicine; PCP Family Medicine; Visit Provider Internal Medicine
DX: S32.511A Fracture of superior rim of right pubis, initial encounter for closed fracture (principal); E22.2 Syndrome of inappropriate secretion of antidiuretic hormone; D64.9 Anemia, unspecified; F32.A Depression, unspecified; C44.301 Unspecified malignant neoplasm of skin of nose; E78.5 Hyperlipidemia, unspecified; N18.32 Chronic kidney disease, stage 3b; I12.9 Hypertensive chronic kidney disease with stage 1 through stage 4 chronic kidney disease, or unspecified chronic kidney disease; S32.591A Other specified fracture of right pubis, initial encounter for closed fracture; S50.01XA Contusion of right elbow, initial encounter; K44.9 Diaphragmatic hernia without obstruction or gangrene; W18.30XA Fall on same level, unspecified, initial encounter; M54.31 Sciatica, right side; I95.1 Orthostatic hypotension; K21.9 Gastro-esophageal reflux disease without esophagitis; T50.2X5A Adverse effect of carbonic-anhydrase inhibitors, benzothiadiazides and other diuretics, initial encounter; Y93.01 Activity, walking, marching and hiking; Z90.49 Acquired absence of other specified parts of digestive tract; Z79.82 Long term (current) use of aspirin; Z79.899 Other long term (current) drug therapy; R42 Dizziness and giddiness; Z85.038 Personal history of other malignant neoplasm of large intestine
CPT/HCPCS: 36415; 73080; 73502; 80048; 80053; 81001; 82306; 82533; 83735; 83930; 83935; 84100; 84295; 84300; 84443; 84550; 85025; 85027; 94668; 97110; 97162; 97166; 97530; 99284; J7120; A4216

== ENCOUNTER → 2024-09-28 | Outpatient (REF) | payer MEDICARE, OTHER, SELFPAY ==
[2024-09-28 09:25] LABS: Red Blood Cells-Urine 0 SEEN /hpf (0-5)
[2024-09-28 10:27] LABS: Color, Urine Yellow (Yellow); Glucose, Dipstick Normal (Normal); Ketone-Dipstick Negative (Negative); Leukocyte Esterase-Dipstick 100 /ul (Negative); Nitrite-Dipstick Negative (Negative); Occult Blood-Urine Negative /ul (Negative); Protein-Dipstick 15 mg/dl (Negative); Urine Bilirubin Dipstick Negative (Negative); Urine Clarity Sl. Cloudy (Clear); Urine Urobilinogen Normal (Normal); Urine pH 6.5 (5.0 - 8.0)
[2024-09-28 10:35] LABS: Bacteria 2+ /hpf (None Seen); Mucous, Urine RARE /hpf (<or=2+); Squamous Epithelial Cells - UA 0-5 SEEN /hpf (5-10); White Blood Cells 10-25 SEEN /hpf (0-5)
== END ==
PROVIDERS: PCP Family Medicine; Referring Provider Family Medicine; Visit Provider Family Medicine
DX: N39.0 Urinary tract infection, site not specified (principal)
CPT/HCPCS: 81001; 87077; 87086; 87088

== ENCOUNTER → 2024-10-21 | Outpatient (REF) | payer MEDICARE, OTHER, SELFPAY ==
[2024-10-21 09:42] LABS: Sodium Level 137 mmol/L (133-145)
== END ==
PROVIDERS: PCP Family Medicine; Visit Provider Family Medicine
DX: E87.1 Hypo-osmolality and hyponatremia (principal)
CPT/HCPCS: 36415; 84295

== ENCOUNTER → 2024-12-21 | Outpatient (REF) | payer MEDICARE, OTHER, SELFPAY ==
--- OUTSIDE RECORDS SUMMARY | 2024-12-21 03:40 | XMS RPT_ITS | CCD ---
Author Organization [facility] Care Team Providers Care Blender/Braze Applicator Name Role Phone Chencho Urbina MD Primary Care Provider Chencho Urbina MD Primary Care Provider Chencho Urbina MD Unavailable CHENCHO URBINA Primary Care Unavailable PROVIDER, UNKNOWN Referring Unavailable CHENCHO URBINA Primary Care Unavailable PROVIDER, UNKNOWN Referring Unavailable PROVIDER, UNKNOWN Referring Unavailable CHENCHO URBINA Primary Care Unavailable Chencho Urbina MD Primary Care Provider Chencho Urbina MD Primary Care Provider Chencho Urbina MD Unavailable CHENCHO URBINA Primary Care Unavailable KIERRA ALFARO Attending UnavailCHENCHO Enriquez Primary Care Unavailable KIERRA ALFARO Referring UnavailKIERRA Latham Attending Unavailabl ceci Quintero RN, Kaity Unavailable [phone] MARGE HAYES Attending Unavailable MARGE HAYES Admitting Unavailable CHENCHO URBINA Primary Care Unavailable LIBERTAD MCKEON Attending Unavailable CHENCHO URBINA A Primary Care Unavailable LIBERTAD MCKEON Attending Unavailable CHENCHO URBINA A Primary Care Unavailable LIBERTAD MCKEON Attending Unavailable CIARA CHENCHO A Primary Care Unavailable LIBERTAD MCKEON Attending Unavailable MARGE HAYES Referring Unavailable CHENCHO URBINA A Primary Care Unavailable SAI URBINAREY A Primary Care Unavailable LIBERTAD MCKEON Attending Unavailable Leon RN, Kaity Unavailable [phone] Myra LARES.Elisa LEMUS Unavailable Cassandra Arshad PA-C Unavailable Chencho Urbina MD Primary Care Provider [phone] CIARA, CHENCHO A Primary Care Unavailable JEAN JARA Attending Unavailable CIARA, CHENCHO A Referring Unavailable CIARA, CHENCHO A Primary Care Unavailable CIARACHENCHO A Attending Unavailable CIARA, CHENCHO A Primary Care Unavailable CIARA, CHENCHO A Referring Unavailable CIARA, CHENCHO A Primary Care Unavailable CIARA, CHENCHO A Primary Care Unavailable KIERRA ALFARO Referring Unavailabl e CIARA, CHENCHO A Primary Care Unavailable CASSANDRA ARSHAD Referring Unavailable CIARA, CHENCHO A Primary Care Unavailable CIARA, CHENCHO A Attending Unavailable CIARA, CHENCHO A Primary Care Unavailable LIBERTAD MCKEON Referring Unavailable CIARA, CHENCHO A Primary Care Unavailable CIARA, CHENCHO A Attending Unavailable CIARA, CHENCHO A Primary Care Unavailable JONNY SUERO Referring Unavailable CIARA, CHENCHO A Referring Unavailable CIARA, CHENCHO A Primary Care Unavailable CIARA, CHENCHO A Primary Care Unavailable ELISA DOHERTY Attending Unavailable CIARA, CHENCHO A Primary Care Unavailable CASSANDRA ARSHAD Referring Unavailable CIARA, CHENCHO A Referring Unavailable CIARA, CHENCHO A Primary Care Unavailable CIARA, CHENCHO A Referring Unavailable CIARA, CHENCHO A Primary Care Unavailable CIARA, CHENCHO A Attending Unavailable CIARA, CHENCHO A Primary Care Unavailable CIARA, CHENCHO A Referring Unavailable CIARA, CHENCHO A Primary Care Unavailable CIARA, CHENCHO A Primary Care Unavailable ELISA DOHERTY Referring Unavailable CIARA, CHENCHO A Primary Care Unavailable CASSANDRA ARSHAD Attending Unavailable CIARA, CHENCHO A Primary Care Unavailable CASSANDRA ARSHAD Referring Unavailable CIARA, CHENCHO A Primary Care Unavailable CASSANDRA ARSHAD Referring Unavailable CIARA, CHENCHO A Referring Unavailable CIARA, CHENCHO A Primary Care Unavailable JONNY SUERO Attending Unavailable CIARA, CHENCHO A Primary Care Unavailable ELISA DOHERTY Referring Unavailable CIARA, CHENCHO A Primary Care Unavailable CASSANDRA ARSHAD Attending Unavailable CIARA, CHENCHO A Primary Care Unavailable ELISA DOHERTY Attending Unavailable DIANNE RUEDA Attending Unavailable CIARA, CHENCHO A Primary Care Unavailable CIARA, CHENCHO A Primary Care Unavailable CASSANDRA ARSHAD Attending Unavailable CIARA, CHENCHO A Primary Care Unavailable CASSANDRA ARSHAD Referring Unavailable CIARA, CHENCHO A Referring Unavailable CIARA, CHENCHO A Primary Care Unavailable Chencho Urbina MD Primary Care Provider Myra ACID LOADER.Elisa LEMUS Unavailable Myra ACID LOADER.Elisa LEMUS Unavailable Cassandra Arshad PA-C Unavailable Dr. Chencho Urbina MD Primary Care Provider Chencho Urbina MD Attending Provider Chencho Urbina MD Referring Provider Chencho Urbina Primary Care Unavailable Ayaka Cuba Consulting Unavailable Ayaka Cuba Attending Unavailable Ayaka Cuba Admitting Unavailable Chencho Roberts Attending Unavailable Chencho Urbina Primary Care Unavailable Chencho Roberts Attending Unavailable Chencho Roberts Referring Unavailable Chencho Urbina Primary Care Unavailable Ayaka Cuba Admitting Unavailable Chencho Urbina Primary Care Unavailable Ayaka Cuba Attending Unavailable Allergies Allergy Classification Reported Allergen(s) Allergy Type Date of Onset Reaction(s) Facility Penicillins (antibiotic) (2 sources) Penicillins Drug Allergy 9 Swelling, Myalgia [facility] rofecoxib (2 sources) rofecoxib Drug Allergy 5 Unknown [facility] Work Phone: Serotonin Reuptake Inhibitors (SSRIs) (2 sources) Sertraline Drug Allergy 3 GI Upset [facility] (20 sources) rofecoxib; Translations: [ROFECOXIB] Drug Allergy 5 Unknown [facility] Work Phone: (20 sources) penecillin [Other] Propensity to adverse reactions 5 Unknown [facility] Work Phone: (20 sources) Sertraline; Translations: [SERTRALINE] Drug Allergy 3 GI Upset [facility] Work Phone: (20 sources) Penicillins; Translations: [PENICILLINS] Drug Allergy 9 Swelling, Myalgia [facility] (1 source) OTHER; Translations: [OTHER] Propensity to adverse reactions (disorder) 5 [facility] Other [facility] (20 sources) Lisinopril; Translations: [LISINOPRIL] Drug Allergy 5 Cough [facility] (10 sources) Penicillins Drug Allergy 9 Swelling, Myalgia [facility] (1 source) Penicillins Allergy to substance 4 swelling joints [facility] (1 source) Penicillins Drug allergy (disorder) 4 [facility] Rep[facility] (1 source) rofecoxib Drug Allergy 4 [facility] Repository Medications Current Medications Medication Drug Class(es) Dates Sig (Normalized) Sig (Original) acetaminophen 500 mg oral tablet (20 sources) Start: 02-16-2024 Acetaminophen 500 mg Tablet Active 1000 mg PO EVERY 8 HOURS 0 0 February 16, 2024 12:00am Would continue taking 1000 mg 3 times daily for 2 weeks then try to take as needed Start: 03-26-2023 take 1 tablet by kely th every four hours as needed acetaminophen (TYLENOL) 500 mg tablet Take 1 tablet by mouth every 4 hours as needed for pain. 03/26/2023 Active Start: 01-02-2006 End: 03-22-2023 TYLENOL ARTHRITIS 650 MG TAB one tablet as needed 0 01/02/2006 03/22/2023 Discontinued End: 09-02-2024 acetaminophen (TYLENOL ARTHR ITIS PAIN ORAL) Take by mouth as directed. 09/02/2024 Discontinued (Discontinued by Patient) acetaminophen (T YLENOL ARTHRITIS PAIN ORAL) Take by mouth as directed. Active Comment on above: one tablet as needed Take 1 tablet by kely th every 4 hours as needed for pain. aspirin 81 mg delayed release oral tablet (20 sources) Platelet Aggregation Inhibitor, Nonsteroidal Anti-inflammatory Drug Start: 02-20-2024 take 1 tablet by mouth once daily aspirin, enteric coated (ASPIRIN, ENTERIC COATED) 81 mg EC tablet Take 1 tablet by mouth once daily. 02/20/2024 Active Start: 02-13-2024 take 1 tablet by kely th once daily Aspirin (Aspirin Childrens) 81 mg tablet,chewable Active 1 {tbl} PO DAILY February 13, 2024 12:00am [email or web address] Start: 05-01-2017 End: 06-30-2021 take 1 tablet by mouth once daily Aspirin 81 MG tablet Discontinued 81 mg PO DAILY@0800 0 May 01, 2017 1:00am June 30, 2021 9:03am calcium carbonate 1250 mg / cholecalciferol 200 unt oral tablet (20 sources) Vitamin D Start: 05-14-2023 take 1 tablet by mouth twice daily at mealtime rpftdct-ghobpmuxf-alhtzbt D3 500 mg-5 mcg (200 unit) per tablet Indications: Primary hyperparathyroidism (HCC) Take 1 tablet by mouth two times a day with meals. 05/14/2023 Active Start: 03-26-2023 End: 05-14-2023 take 1 tablet by mouth three times daily snzhxug-ytemgksre-ntmclye D3 500 mg-5 mc g (200 unit) per tablet Take 1 tablet by mouth three times a day. 0 03/26/2023 05/14/2023 Discontinued Start: 04-30-2017 End: 04-09-2019 Calcium Carbonate-Vitamin D3 1 EACH tablet,chewable Discontinued 1 {tbl} PO DAILY April 30, 2017 1:00am April 09, 2019 3:31pm SUPPLEMENT Comment on above: Take 1 tablet by kely th three times a day. Take 1 tablet by kely th two times a day with meals. carvedilol 12.5 mg oral tablet (20 sources) alpha-Adrenergic Gilmer, beta-Adrenergic Gilmer Start: 06-30-2021 take 2 tablets by mouth once daily Carvedilol 12.5 mg tablet Active 25 mg PO DAILY June 30, 2021 9:04am heart Start: 03-01-2021 End: 11-10-2024 take 1 tablet by mouth twice daily carvedilol (COREG) 12.5 mg tablet Take 1 tablet by mouth two times a day. 180 tablet 1 11/10/2024 Active Start: 01-31-2020 End: 06-30-2021 take 2 tablets by mouth twice daily Carvedilol 12.5 MG tablet Discontinued 25 mg PO TWICE A DAY January 31, 2020 11:25am June 30, 2021 9:04am Start: 04-30-2017 End: 01-31-2020 take 1 tablet by mouth twice daily Carvedilol 12.5 mg tablet Discontinued 12.5 mg PO TWICE A DAY 180 3 April 09, 2019 3:35pm January 31, 2020 11:25am Comment on above: Take 1 tablet by kely th twice daily. Take 1 tablet by kely th two times a day. cefdinir 300 mg oral capsule (3 sources) Cephalosporin Antibacterial Start: 06-15-2024 End: 06-20-2024 take 1 capsule by mouth twice daily cefdinir (OMNICEF) 300 mg capsule Take 1 capsule by mouth two times a day for 5 days. 10 capsule 06/15/2024 06/20/2024 Active Start: 06-08-2024 End: 06-13-2024 take 1 capsule by mouth twice daily cefdinir (OMNICEF) 300 mg capsule Indications: Bacterial sinusitis Take 1 capsule by mouth two times a day for 5 days. 10 capsule 06/08/2024 06/13/2024 Active ciprofloxacin 500 mg oral tablet (2 sources) Quinolone Antimicrobial Start: 08-17-2024 End: 08-24-2024 take 1 tablet by mouth twice daily ciprofloxacin HCl (CIPRO) 500 mg tablet Indications: UTI symptoms Take 1 tablet by mouth two times a day for 7 days. 14 tablet 08/17/2024 08/24/2024 Active FLUoxetine 10 mg oral capsule (12 sources) Serotonin Reuptake Inhibitor Start: 09-02-2024 take 1 capsule by mouth once daily FLUoxetine (PROZAC) 10 mg capsule Take 1 capsule by mouth once daily. 90 capsule 1 09/02/2024 Active hydroCHLOROthiazide 12.5 mg / valsartan 80 mg oral tablet (12 sources) Thiazide Diuretic, Angiotensin 2 Receptor Gilmer Start: 09-02-2024 take 1 tablet by mouth once daily Valsartan-hydroCH LOROthiazide (DIOVAN HCT) 80-12.5 mg per tablet Take 1 tablet by mouth once daily. 90 tablet 1 09/02/2024 Active LORazepam 0.5 mg oral tablet (2 sources) Benzodiazepine Start: 06-27-2022 End: 07-04-2022 take 1 tablet by mouth three times daily as needed for anxiety LORazepam (ATIVAN) 0.5 mg Indications: Situational stress , Grief reaction Take 1 tablet by mouth three times daily as needed (anxiety) for up to 7 days. 21 tablet 0 06/27/2022 07/04/2022 Active Comment on above: Take 1 tablet by kely th three times daily as needed (anxiety) for up to 7 days. losartan potassium 25 mg oral tablet (20 sources) Angiotensin 2 Receptor Gilmer Start: 06-15-2024 take 1 tablet by mouth once daily losartan (COZAAR) 25 mg tablet Take 1 tablet by mouth once daily. 90 tablet 1 06/15/2024 Active magnesium oxide 250 mg oral tablet (20 sources) Start: 03-22-2023 End: 02-20-2024 Magnesium Oxide 250 mg magnesium tab Take 1 in morning 02/20/2024 Active Start: 09-20-2022 End: 03-22-2023 take 1 tablet by mouth once daily Magnesium Oxide 250 mg magnesium tab Take 1 tablet by mouth once daily. 0 09/20/2022 03/22/2023 Discontinued Comment on above: Take 1 tablet by kely th once daily. Take 1 tablet by kely th two times a day. Take 1 in morning an d 2 at night. meclizine hydrochloride 12.5 mg oral tablet (20 sources) Antiemetic Start: End: take 1 tablet by mouth twice daily meclizine (ANTIVERT) 12.5 mg tab Indications: Benign paroxysmal positional vertigo, unspecified laterality Take 1 tablet by mouth two times a day. 180 tablet 3 10/07/2024 Active Start: 06-14-2021 End: 03-26-2023 take 1 tablet by mouth three times daily meclizine (ANTIVERT) 12.5 mg tab Indications: Benign paroxysmal positional vertigo, unspecified laterality Take 1 tablet by mouth three times daily. 270 tablet 1 09/20/2022 03/26/2023 Discontinued Start: 04-09-2019 Meclizine 12.5 mg tablet Active 12.5 mg PO 2 to 3 times per day April 09, 2019 12:00am vertigo Comment on above: Take 1 tablet by kely th three times daily. Take 1 tablet by kely th two times a day. Djsnxepl-Yxh-Nwak-Fa-V it K-Lut (Centrum Silver Women) 8 mg iron-400 mcg-300 mcg tablet (1 source) Start: 04-09-2019 Kkbucsfv-Xcx-Mhur-Fa-Vit K-Lut (Centrum Silver Women) 8 mg iron-400 mcg-300 mcg tablet Active 1 {tbl} PO DAILY April 09, 2019 12:00am supplement multivit-min/iron/FA/v it K/lut (CENTRUM SILVER WOMEN ORAL) (20 sources) multivit-min/iro n/FA/vit K/lut (CENTRUM SILVER WOMEN ORAL) Take by mouth. Active multivit-min/iro n/FA/vit K/lut (CENTRUM SILVER WOMEN ORAL) Take by mouth. 0 Active Comment on above: Take by mouth. omeprazole 40 mg delayed release oral capsule (20 sources) Proton Pump Inhibitor Start: End: take 1 capsule by mouth once daily 30 minutes before breakfast omeprazole (PRILOSEC) 40 mg capsule Take 1 capsule by mouth once daily. Take 30 minutes before breakfast. 90 capsule 1 10/07/2024 Active Start: 09-24-2023 End: 03-26-2024 take 2 capsules by mouth once daily 30 minutes before breakfast omeprazole (PRILOSEC) 20 mg capsule Take 2 capsules by mouth once daily. Take 30 minutes before breakfast. 180 capsule 1 03/25/2024 03/26/2024 Discontinued (Adjust Sig - Block E-Cancel) Start: 05-08-2023 End: 09-24-2023 take 1 capsule by mouth once daily 30 minutes before breakfast omeprazole (PRILOSEC) 20 mg capsule Take 1 capsule by mouth once daily. Take 30 minutes before breakfast. 90 capsule 1 05/08/2023 09/24/2023 Discontinued Start: 04-30-2017 End: 02-13-2024 take 1 capsule by mouth once daily 30 minutes before breakfast omeprazole (PRILOSEC) 20 mg capsule Take 1 capsule by mouth once daily. Take 30 minutes before breakfast. 90 capsule 1 09/20/2022 Active Comment on above: Take 1 capsule by mo ut once daily. Take 30 minutes before breakfast. Take 2 capsules by m out once daily. Take 30 minutes before breakfast. oxyCODONE hydrochloride 5 mg oral tablet (15 sources) Opioid Agonist Start: End: take 1 tablet by mouth every six hours as needed for pain Oxycodone 5 mg Tablet Active 5 mg PO EVERY 6 HOURS as needed for pain 20 5 0 February 16, 2024 Closed fracture of pelvis predniSONE 10 mg oral tablet (2 sources) Start: End: predniSONE (DELTASONE) 10 mg tablet Take 4 tabs daily for 3 days, then 2 tabs daily for 3 days, then 1 tab daily for 3 days with food. 21 tablet 05/04/2024 05/13/2024 Active rOPINIRole 0.25 mg oral tablet (12 sources) Nonergot Dopamine Agonist Start: 5 take 1 tablet by mouth once daily at bedtime rOPINIRole (REQUIP) 0.25 mg tablet Take 1 tablet by mouth daily at bedtime. 90 tablet 1 09/02/2024 Active Completed/Discontinued Medications Medication Drug Class(es) Dates Sig (Normalized) Sig (Original) acetaminophen 325 mg / HYDROcodone bitartrate 5 mg oral tablet (1 source) Opioid Agonist Start: 01-15-2021 End: 06-30-2021 Hydrocodone-Acetam inophen 5-325 mg tablet Discontinued 1 {tbl} PO Q4H as needed for pain 20 7 0 January 15, 2021 June 30, 2021 9:03am Back pain Dorsalgia, unspecified calcium carbonate 500 mg chewable tablet (4 sources) Start: 03-26-2023 End: 05-14-2023 take 500 mg by mouth every hour as needed calcium carbonate (TUMS) 500 mg chew Take 1 tablet by mouth every hour as needed (mouth or hand numbness or tingling). 0 03/26/2023 05/14/2023 Discontinued (Course of therapy completed) Comment on above: Take 1 tablet by kely every hour as needed (mouth or hand numbness or tingling). cephalexin 500 mg oral capsule (3 sources) Cephalosporin Antibacterial Start: 10-22-2022 End: 11-15-2022 take 1 capsule by mouth three times daily cephALEXin (KEFLEX) 500 mg capsule Indications: Urinary tract infection without hematuria, site unspecified Take 1 capsule by mouth three times daily. 21 capsule 0 10/22/2022 11/15/2022 Discontinued (Course of therapy completed) Comment on above: Take 1 capsule by mo [facility] three times daily. citalopram 10 mg oral tablet (20 sources) Serotonin Reuptake Inhibitor Start: 02-13-2024 End: 02-13-2024 take 2 tablets by mouth at bedtime Citalopram 10 mg tablet Discontinued 20 mg PO AT BEDTIME February 13, 2024 12:00am February 13, 2024 10:22am Start: 03-22-2023 End: 02-20-2024 take 1 tablet by mouth once daily Citalopram 20 mg tablet Discontinued 20 mg PO DAILY February 13, 2024 12:00am February 16, 2024 12:35pm depression Start: 10-18-2022 End: 03-22-2023 take 0.5 tablet by mouth once daily citalopram hydrobromide (CELEXA) 10 mg tablet Indications: Grief reaction Take 0.5 tablets by mouth once daily. 90 tablet 1 10/18/2022 03/22/2023 Discontinued Start: 09-20-2022 take 1 tablet by kely th once daily citalopram hydrobromide (CELEXA) 10 mg tablet Take 1 tablet by mouth once daily. 90 tablet 1 09/20/2022 Active Comment on above: Take 1 tablet by kely th once daily. Take 0.5 tablets by mouth once daily. clopidogrel 75 mg oral tablet (1 source) [id number] Platelet Inhibitor Start: 2018 End: 2018 take 1 tablet by mouth once daily Clopidogrel (Plavix) 75 mg tablet Discontinued 75 mg PO DAILY 90 3 July 23, 2018 1:00am April 08, 2019 7:45pm cyclobenzaprine hydrochloride 10 mg oral tablet (1 source) Muscle Relaxant Start: 2020 End: 2021 take 1 tablet by mouth once daily at bedtime cyclobenzaprine (FLEXERIL) 10 mg tablet Indications: Acute midline low back pain with right-sided sciatica Take 1 tablet by mouth daily at bedtime. 30 tablet 0 01/18/2021 09/01/2021 Discontinued (Course of therapy completed) Comment on above: Take 1 tablet by kely th daily at bedtime. hydroCHLOROthiazide 25 mg oral tablet (20 sources) Thiazide Diuretic Start: 2018 End: 2023 take 1 tablet by mouth once daily hydroCHLOROthiazide 25 mg tablet Take 1 tablet by mouth once daily. 90 tablet 1 11/01/2023 02/20/2024 Discontinued (Discontinued by another Health Care Provider) Start: 04-30-2017 End: 07-23-2018 take 1 capsule by mouth once daily Hydrochlorothiazide 12.5 MG capsule Discontinued 12.5 mg PO DAILY April 30, 2017 1:00am July 23, 2018 11:18am BLOOD PRESSURE Comment on above: Take 1 tablet by kely th once daily. iv contrast (will be provided with radiology test) (2 sources) Start: 4 End: inject 1 dose intravenously once iv contrast (will be provided with radiology test) Indications: Nonruptured cerebral aneurysm , Fibromuscular dysplasia of carotid artery (HCC) , Carotid pseudoaneurysm (HCC) CTA Head/Neck W No IV access, insert saline lock prior to the sedation, infusion, injection for imaging exam. Discontinue saline lock post exam. If Pt. has a central line or IVAD, may access for administration according to line specific nursing protocol. Once exam is complete flush line and de-access according to line specific nursing protocol in the CT contrast administration guidelines link. 1 Each 0 11/28/2023 11/29/2023 Start: 05-16-2023 End: 05-17-2023 inject 1 dose intravenously once iv contrast (will be provided with radiology test) Indications: Nonruptured cerebral aneurysm CTA Head/Neck W No IV access, insert saline lock prior to the sedation, infusion, injection for imaging exam. Discontinue saline lock post exam. If Pt. has a central line or IVAD, may access for administration according to line specific nursing protocol. Once exam is complete flush line and de-access according to line specific nursing protocol in the CT contrast administration guidelines link. 1 Each 0 05/16/2023 05/17/2023 Active Comment on above: CTA Head/Neck W No I V access, insert saline lock prior to the sedation, infusion, injection for imaging exam. Discontinue saline lock post exam. If Pt. has a central line or IVAD, may access for administration according to line specific nursing protocol. Once exam is complete flush line and de-access according to line specific nursing protocol in the CT contrast administration guidelines link. lisinopril 20 mg oral tablet (20 sources) Angiotensin Converting Enzyme Inhibitor Start: 7 End: 4 take 1 tablet by mouth once daily lisinopril (ZESTRIL) 20 mg tablet Take 1 tablet by mouth once daily. 90 tablet 1 11/01/2023 02/20/2024 Discontinued (Clinical Decision) Comment on above: Take 1 tablet by kely th once daily. multivitamin/iron/f olic acid (CENTRUM WOMEN ORAL) (20 sources) End: multivitamin/iron/fo lic acid (CENTRUM WOMEN ORAL) Take by mouth. 0 03/22/2023 Discontinued multivitamin/iro n/folic acid (CENTRUM WOMEN ORAL) Take by mouth. 0 Active Comment on above: Take by mouth. nitrofurantoin, macrocrystals 25 mg / nitrofurantoin, monohydrate 75 mg oral capsule (5 sources) Nitrofuran Antibacterial Start: End: take 1 capsule by mouth twice daily at mealtime nitrofurantoin monohydrate and macrocrystal (MACROBID) 100 mg capsule Take 1 capsule by mouth two times a day with meals for 7 days. 14 capsule 09/30/2024 10/07/2024 Discontinued (Course of therapy completed) Start: 04-29-2024 End: 05-04-2024 take 1 capsule by mouth twice daily nitrofurantoin monohydrate and macrocrystal (MACROBID) 100 mg capsule Indications: UTI symptoms Take 1 capsule by mouth two times a day for 5 days. 10 capsule 04/29/2024 05/04/2024 Discontinued nitroglycerin 0.4 mg sublingual tablet (1 source) Nitrate Vasodilator Start: 04-30-2017 End: 05-01-2017 Nitroglycerin 0.4 MG Tab.Subl Discontinued 0.4 mg SL DAILY April 30, 2017 1:00am May 01, 2017 12:39pm CHEST PAIN sertraline 25 mg oral tablet (4 sources) Serotonin Reuptake Inhibitor Start: 05-01-2022 End: 07-27-2022 take 1 tablet by mouth once daily sertraline (ZOLOFT) 25 mg tablet Take 1 tablet by mouth once daily. 30 tablet 5 06/27/2022 07/25/2022 Discontinued Comment on above: Take 1 tablet by kely th once daily. sodium chloride 1000 mg oral tablet (20 sources) Start: 03-03-2024 End: 09-02-2024 take 1 tablet by mouth once daily sodium chloride soluble tablet 1 g Take 1 tablet by mouth once daily. 30 tablet 03/25/2024 09/02/2024 Discontinued (Discontinued by Patient) Start: 02-16-2024 End: 03-03-2024 take 1 tablet by mouth twice daily sodium chloride soluble tablet 1 g Take 1 g by mouth two times a day. 02/16/2024 03/03/2024 Discontinued (Adjust Sig - Block E-Cancel) Start: 02-16-2024 take 1 tablet by kely th twice daily Sodium Chloride 1,000 mg Tablet,Soluble Active 1000 mg PO TWICE A DAY 60 0 February 16, 2024 12:00am tiZANidine 2 mg oral tablet (5 sources) Central alpha-2 Adrenergic Agonist Start: 02-16-2024 End: 02-26-2024 take 1 tablet by mouth every eight hours as needed tiZANidine (ZANAFLEX) 2 mg tablet Take 2 mg by mouth every 8 hours as needed. 02/16/2024 02/26/2024 Discontinued (Course of therapy completed) Problems Active Problems Problem Classification Problem Date Documented Date Episodic/Chronic Adjustment disorders (20 sources) Stress; Translations: [Reaction to severe stress, unspecified] Onset: 9 08-13-2019 Chronic Aortic; peripheral; and visceral artery aneurysms (2 sources) Disorder of carotid artery; Translations: [Aneurysm of carotid artery] Onset: 4 11-28-2023 Chronic Biliary tract disease (11 sources) Cholecystitis; Translations: [Cholecystitis, unspecified] 10-16-2017 Episodic Cancer of colon (20 sources) Malignant tumor of colon; Translations: [Malignant neoplasm of colon, unspecified] Onset: 0 Chronic Cancer of colon (20 sources) History of malignant neoplasm of colon; Translations: [Personal history of other malignant neoplasm of large intestine] Onset: 4 06-05-2021 Episodic Chronic kidney disease (20 sources) Chronic kidney disease stage 3; Translations: [Stage 3 chronic kidney disease, unspecified whether stage 3a or 3b CKD (HCC)] Onset: 8 Chronic Chronic kidney disease (1 source) Chronic kidney disease; Translations: [Stage 3b chronic kidney disease (HCC)] Onset: 4 Conditions associated with dizziness or vertigo (20 sources) Benign paroxysmal positional vertigo; Translations: [Benign paroxysmal vertigo, unspecified ear] Onset: 9 02-18-2020 Episodic Conduction disorders (20 sources) Right bundle branch block; Translations: [Unspecified right bundle-branch block] Onset: 3 03-22-2023 Chronic Deficiency and other anemia (20 sources) Iron deficiency anemia; Translations: [Iron deficiency anemia, unspecified] Episodic Deficiency and other anemia (1 source) Anemia; Translations: [Anemia, unspecified] 02-24-2024 Episodic Diseases of white blood cells (2 sources) Leukocytosis; Translations: [Elevated white blood cell count, unspecified] Onset: 4 02-24-2024 Chronic Disorders of lipid metabolism (20 sources) Mixed hyperlipidemia; Translations: [Mixed hyperlipidemia] Onset: 7 Chronic Diverticulosis and diverticulitis (20 sources) Diverticulitis of large intestine without perforation or abscess without bleeding; Translations: [Diverticulitis of colon (without mention of hemorrhage)] 10-16-2017 Chronic Esophageal disorders (20 sources) Gastroesophageal reflux disease without esophagitis; Translations: [Gastro-esophageal reflux disease without esophagitis] Onset: 8 Chronic Essential hypertension (20 sources) Essential hypertension; Translations: [Essential (primary) hypertension] Onset: 1 Chronic Fluid and electrolyte disorders (20 sources) Low serum potassium level - finding; Translations: [Hypokalemia] Onset: 3 Episodic Genitourinary symptoms and ill-defined conditions (2 sources) Dribbling of urine; Translations: [Post-void dribbling] 09-03-2024 Chronic Genitourinary symptoms and ill-defined conditions (16 sources) Urinary symptoms ; Translations: [Unspecified symptoms and signs involving the genitourinary system] Onset: 5 04-29-2024 Episodic Headache; including migraine (1 source) Tension-type headache; Translations: [Tension-type headache, unspecified, not intractable] 08-17-2024 Chronic Heart valve disorders (1 source) Non-rheumatic mitral regurgitation ; Translations: [Nonrheumatic mitral (valve) insufficiency] 04-08-2019 Chronic Immunizations and screening for infectious disease (3 sources) Vaccination needed; Translations: [Encounter for immunization] Onset: 5 02-26-2024 Episodic Mood disorders (15 sources) Mild major depression, single episode; Translations: [Major depressive disorder, single episode, mild] Onset: 5 09-02-2024 Chronic Neoplasms of unspecified nature or uncertain behavior (2 sources) Neoplasm of uncertain behavior of skin of neck; Translations: [Neoplasm of uncertain behavior of skin] Episodic Nonspecific chest pain (1 source) Chest pain; Translations: [Chest pain, unspecified] 04-08-2019 Episodic Occlusion or stenosis of precerebral arteries (20 sources) Bilateral stenosis of carotid arteries; Translations: [Occlusion and stenosis of bilateral carotid arteries] Onset: 9 Chronic Osteoarthritis (1 source) Osteoarthritis of joint of bilateral hands; Translations: [Primary osteoarthritis, right hand] 01-21-2023 Chronic Osteoporosis (20 sources) Senile osteoporosis; Translations: [Age-related osteoporosis without current pathological fracture] Onset: 3 05-14-2023 Chronic Other acquired deformities (2 sources) Disorder of finger; Translations: [Unspecified deformity of left finger(s)] Episodic Other and ill-defined cerebrovascular disease (20 sources) Cerebral arterial aneurysm; Translations: [Cerebral aneurysm, nonruptured] Onset: 3 Chronic Other and ill-defined cerebrovascular disease (3 sources) Cerebral aneurysm, nonruptured; Translations: [Nonruptured cerebral aneurysm] Onset: 3 Chronic Other and unspecified benign neoplasm (1 source) History of polyp of colon; Translations: [History of colonic polyps] 06-30-2021 Episodic Other bone disease and musculoskeletal deformities (20 sources) Disorder of skeletal system; Translations: [Disorder of bone, unspecified] 10-16-2017 Episodic Other circulatory disease (1 source) 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; Translations: [Arterial fibromuscular dysplasia] 11-28-2023 Chronic Other circulatory disease (1 source) Arterial fibromuscular dysplasia; Translations: [Fibromuscular dysplasia of carotid artery (HCC)] Onset: 4 Chronic Other circulatory disease (1 source) Idiopathic hypotension; Translations: [Idiopathic hypotension] 02-20-2024 Episodic Other circulatory disease (2 sources) Abnormal peripheral pulse; Translations: [Other specified symptoms and signs involving the circulatory and respiratory systems] 09-03-2024 Episodic Other circulatory disease (1 source) Other specified symptoms and signs involving the circulatory and respiratory systems; Translations: [Diminished pulses in lower extremity] Onset: 5 Episodic Other connective tissue disease (1 source) Swelling of finger ; Translations: [Other specified soft tissue disorders] 11-15-2022 Episodic Other connective tissue disease (1 source) Musculoskeletal disorder of the neck; Translations: [Disorder of muscle, unspecified] 08-17-2024 Episodic Other connective tissue disease (3 sources) Bilateral calf pain; Translations: [Pain in right lower leg] 09-03-2024 Episodic Other connective tissue disease (1 source) Pain in right lower leg; Translations: [Bilateral calf pain] Onset: 5 Episodic Other connective tissue disease (1 source) Pain in left lower leg; Translations: [Bilateral calf pain] Onset: 5 Episodic Other ear and sense organ disorders (20 sources) Bilateral sensory hearing loss; Translations: [Sensorineural hearing loss, bilateral] Onset: 8 01-21-2018 Chronic Other ear and sense organ disorders (1 source) Bilateral hearing loss; Translations: [Unspecified hearing loss, bilateral] 09-24-2023 Chronic Other endocrine disorders (6 sources) Hyperparathyroidism; Translations: [Hyperparathyroidism, unspecified] Onset: 3 02-20-2023 Chronic Other endocrine disorders (2 sources) Hyperparathyroidism, unspecified; Translations: [Hyperparathyroidism (HCC)] Onset: 3 Chronic Other endocrine disorders (20 sources) Primary hyperparathyroidism; Translations: [Primary hyperparathyroidism] Onset: 3 05-14-2023 Chronic Other endocrine disorders (2 sources) Primary hyperparathyroidism; Translations: [Primary hyperparathyroidism (HCC)] Onset: 4 Chronic Other fractures (1 source) Fracture of pubic tubercle; Translations: [Other specified fracture of right pubis, subsequent encounter for fracture with routine healing] 03-16-2024 Episodic Other fractures (1 source) Closed fracture of pelvis; Translations: [Fracture of unspecified parts of lumbosacral spine and pelvis, initial encounter for closed fracture] 02-13-2024 Episodic Other hereditary and degenerative nervous system conditions (10 sources) Restless legs; Translations: [Restless legs syndrome] Onset: 5 09-02-2024 Chronic Other hereditary and degenerative nervous system conditions (1 source) Restless legs syndrome; Translations: [RLS (restless legs syndrome)] Onset: 5 Chronic Other injuries and conditions due to external causes (1 source) Contusion; Translations: [Other injury of unspecified body region, initial encounter] 03-25-2024 Episodic Other lower respiratory disease (3 sources) Dyspnea; Translations: [Shortness of breath] Episodic Other lower respiratory disease (1 source) Cough; Translations: [Cough, unspecified type] 02-26-2024 Episodic Other lower respiratory disease (1 source) Dyspnea on exertion; Translations: [Other forms of dyspnea] 04-08-2019 Episodic Other nervous system disorders (1 source) Other chronic pain; Translations: [Chronic pain of both knees] Onset: 5 Chronic Other non-traumatic joint disorders (1 source) Joint pain in right hand; Translations: [Pain in joints of right hand] 11-15-2022 Episodic Other non-traumatic joint disorders (3 sources) Pain in right knee; Translations: [Pain in joint, lower leg] Onset: 5 09-02-2024 Episodic Other non-traumatic joint disorders (1 source) Pain in left knee; Translations: [Chronic pain of both knees] Onset: 5 Episodic Other nutritional; endocrine; and metabolic disorders (1 source) Hypercalcemia; Translations: [Hypercalcemia] Chronic Other nutritional; endocrine; and metabolic disorders (1 source) Hypercalcemia; Translations: [Hypercalcemia] Onset: 3 Chronic Other nutritional; endocrine; and metabolic disorders (20 sources) Hypomagnesemia; Translations: [Hypomagnesemia] Onset: 3 03-22-2023 Chronic Other nutritional; endocrine; and metabolic disorders (1 source) Hypomagnesemia; Translations: [Hypomagnesemia] Onset: 3 Chronic Other skin disorders (1 source) Loss of hair; Translations: [Nonscarring hair loss, unspecified] 03-25-2024 Episodic Other upper respiratory disease (20 sources) Seasonal allergic rhinitis; Translations: [Other seasonal allergic rhinitis] 02-23-2020 Chronic Other upper respiratory infections (2 sources) Bacterial sinusitis; Translations: [Chronic sinusitis, unspecified] Onset: 4 06-08-2024 Chronic Residual codes; unclassified (1 source) Other specified postprocedural states; Translations: [History of parathyroid surgery] Onset: 4 Episodic Residual codes; unclassified (2 sources) Bilateral lower limb edema; Translations: [Localized edema] 09-03-2024 Episodic Residual codes; unclassified (1 source) Localized edema; Translations: [Bilateral leg edema] Onset: 5 Episodic Screening and history of mental health and substance abuse codes (1 source) Encounter for screening examination for other mental health and behavioral disorders; Translations: [Encounter for screening examination for other mental health and behavioral disorders] Onset: 5 Episodic Spondylosis; intervertebral disc disorders; other back problems (20 sources) Chronic low back pain; Translations: [Chronic right-sided low back pain] Onset: 2 01-29-2019 Episodic Thyroid disorders (20 sources) Thyroid nodule; Translations: [Nontoxic single thyroid nodule] Onset: 3 Chronic Unclassified (5 sources) Active living will ; Translations: [Living will on file] Onset: 2 09-01-2021 Unclassified (1 source) Chronic pain of both knees 09-03-2024 Urinary tract infections (4 sources) Urinary tract infectious disease; Translations: [Urinary tract infection, site not specified] Onset: 5 Episodic Past or Other Problems Problem Classification Problem Date Documented Date Episodic/Chronic Abdominal hernia (20 sources) Hiatal hernia; Translations: [Diaphragmatic hernia without obstruction or gangrene] Onset: 09-29-2009 10-16-2017 Episodic Administrative/social admission (20 sources) Advance directive discussed with patient; Translations: [Other specified counseling] Onset: 09-01-2021 Episodic Bacterial infection; unspecified site (1 source) Other specified bacterial agents as the cause of diseases classified elsewhere; Translations: [Bacterial sinusitis] Onset: 06-08-2024 Episodic Deficiency and other anemia (1 source) Iron deficiency anemia, unspecified; Translations: [Iron deficiency anemia, unspecified iron deficiency anemia type] Onset: 10-16-2017 Episodic Deficiency and other anemia (1 source) Anemia, unspecified; Translations: [Anemia, unspecified] Onset: 02-16-2024 Episodic Diabetes mellitus without complication (20 sources) Hyperglycemia; Translations: [Impaired fasting glucose] Onset: 07-05-2006 Episodic Other aftercare (20 sources) Patient encounter status; Translations: [Other shelter (current) drug therapy] Onset: 12-09-2017 03-01-2021 Episodic Other aftercare (1 source) Other shelter (current) drug therapy; Translations: [Medication management] Onset: 03-01-2021 Episodic Other circulatory disease (1 source) Idiopathic hypotension; Translations: [Idiopathic hypotension] Onset: 02-20-2024 Episodic Other ear and sense organ disorders (20 sources) Tinnitus of left ear; Translations: [Tinnitus, left ear] Onset: 01-21-2018 01-21-2018 Episodic Other fractures (20 sources) Multiple fractures of pelvis without disruption of pelvic ring, initial encounter for closed fracture; Translations: [Multiple closed pelvic fractures without disruption of pelvic navajo] Onset: 02-20-2024 02-20-2024 Episodic Other fractures (1 source) Fracture of superior rim of right pubis, initial encounter for closed fracture; Translations: [Fracture of superior rim of right pubis, initial encounter for closed fracture] Onset: 03-06-2024 Episodic Other fractures (1 source) Fracture of unspecified parts of lumbosacral spine and pelvis, initial encounter for closed fracture; Translations: [Fracture of unspecified parts of lumbosacral spine and pelvis, initial encounter for closed fracture] Onset: 02-16-2024 Episodic Other injuries and conditions due to external causes (1 source) Other injury of unspecified body region, initial encounter; Translations: [Bruising] Onset: 03-25-2024 Episodic Other non-epithelial cancer of skin (20 sources) Basal cell carcinoma of face; Translations: [Basal cell carcinoma of skin of unspecified parts of face] Onset: 01-12-2019 01-12-2019 Episodic Other screening for suspected conditions (not mental disorders or infectious disease) (20 sources) Hypomagnesemia; Translations: [Abnormal level of blood mineral] Onset: 01-14-2019 Episodic Other skin disorders (20 sources) Mass of neck; Translations: [Localized swelling, mass and lump, neck] Onset: 11-02-2022 Resolved: 10-07-2024 11-02-2022 Episodic Other skin disorders (1 source) Localized swelling, mass and lump, neck; Translations: [Neck mass] Onset: 11-02-2022 Episodic Other skin disorders (1 source) Nonscarring hair loss, unspecified; Translations: [Hair loss] Onset: 03-25-2024 Episodic Residual codes; unclassified (20 sources) Active living will ; Translations: [Personal history of other specified conditions] Onset: 09-01-2021 Episodic Residual codes; unclassified (20 sources) Passive smoker; Translations: [Contact with and (suspected) exposure to environmental tobacco smoke (acute) (chronic)] Onset: 01-14-2018 01-14-2019 Episodic Residual codes; unclassified (20 sources) FH: premature coronary heart disease; Translations: [Family history of ischemic heart disease and other diseases of the circulatory system] Onset: 01-14-2018 01-14-2018 Episodic Residual codes; unclassified (20 sources) History of clinical finding in subject; Translations: [Personal history of other specified conditions] Onset: 03-22-2023 03-22-2023 Episodic Results Test Name Value Interpretation Reference Range Facility PVR LEG ASIM VAS LABon 2024 P[facility] LEG ASIM [facility]AS LAB Normal [facility] US CAROTID ARTERIES ASIM VAS LABon 10-28-2024 US CAROTID ARTERIES ASIM VAS LAB Normal [facility] US LEG VEIN DVT ASIM VAS LABo n 10-28-2024 US LEG VEIN DVT ASIM VAS LAB Normal [facility] CNPNon 10-23-2024 CNPN Normal [facility] Sodium levelOrdered By: Sai Urbina on 10-21-2024 Sodium [Moles/Vol] 137 mmol/L 133-145 [facility] CNPNon 10-16-2024 CNPN Normal [facility] CNOVon 10-07-2024 CNOV Normal [facility] CBC W Auto Differential pane l (Bld)on 10-06-2024 Basophils (Bld) [#/Vol] 0.07 10*3/uL Normal <0.11 [facility] Comment on above: Order Comment: Speci men Type: BLOOD SPECIMENOrdering Facility: [facility] Address: [address] [place] [address] Performed By: #### 5 7021-8 ####[facility] LABCLIA [id number] [place] [address] [place] Basophils/100 WBC (Bld) 0.8 % Normal [facility] Comment on above: Order Comment: Speci men Type: BLOOD SPECIMENOrdering Facility: [facility] Address: [address] [place] [address] Performed By: #### 5 7021-8 ####[facility] LABCLIA [id number] [place] [address] [place] Differential cell count method Nom (Bld) Auto Normal [facility] Comment on above: Order Comment: Speci men Type: BLOOD SPECIMENOrdering Facility: [facility] Address: [address] [place] [address] Performed By: #### 5 7021-8 ####[facility] LABCLIA [id number] [place] [address] [place] Eosinophils (Bld) [#/Vol] 0.10 10*3/uL Normal <0.46 [facility] Comment on above: Order Comment: Speci men Type: BLOOD SPECIMENOrdering Facility: [facility] Address: [address] [place] [address] Performed By: #### 5 7021-8 ####[facility] LABCLIA [id number] [address] [place] Eosinophils/100 WBC (Bld) 1.1 % Normal [facility] Comment on above: Order Comment: Speci men Type: BLOOD SPECIMENOrdering Facility: [facility] Address: [address] [place] [address] Performed By: #### 5 7021-8 ####[facility] LABCLIA [id number] [place] [address] [place] Erythrocyte distribution width (RBC) [Ratio] 13.1 % Normal 11.5-15.0 [facility] Comment on above: Order Comment: Speci men Type: BLOOD SPECIMENOrdering Facility: [facility] Address: [address] [place] [address] Performed By: #### 5 7021-8 ####[facility]CLIA [id number] [place] [address] [place] Hematocrit (Bld) [Volume fraction] 36.4 % Normal 36.0-46.0 [facility] Comment on above: Order Comment: Speci men Type: BLOOD SPECIMENOrdering Facility: [facility] Address: [address] [place] [address] Performed By: #### 5 7021-8 ####[facility] LABIA [id number] [place] [address] [place] Hemoglobin (Bld) [Mass/Vol] 12.4 g/dL Normal 11.5-15.5 [facility] Comment on above: Order Comment: Speci men Type: BLOOD SPECIMENOrdering Facility: [facility] Address: [address] [place] [address] Performed By: #### 5 7021-8 ####[facility] LABIA [id number] [place] [address] [place] Immature granulocytes (Bld) [#/Vol] 0.03 10*3/uL Normal <0.10 [facility] Comment on above: Order Comment: Speci men Type: BLOOD SPECIMENOrdering Facility: [facility] Address: [address] [place] [address] Performed By: #### 5 7021-8 ####[facility]CLIA [id number] [place] [address] [place] Immature granulocytes/100 WBC (Bld) 0.3 % Normal [facility] Comment on above: Order Comment: Speci men Type: BLOOD SPECIMENOrdering Facility: [facility] Address: [address] [place] [address] Performed By: #### 5 7021-8 ####[facility] LABCLIA [id number] [place] [address] [place] Lymphocytes (Bld) [#/Vol] 2.41 10*3/uL Normal 1.00-4.00 [facility] Comment on above: Order Comment: Speci men Type: BLOOD SPECIMENOrdering Facility: [facility] Address: [address] [place] [address] Performed By: #### 5 7021-8 ####[facility]CLIA [id number] [place] [address] [place] Lymphocytes/100 WBC (Bld) 27.0 % Normal [facility] Comment on above: Order Comment: Speci men Type: BLOOD SPECIMENOrdering Facility: [facility] Address: [address] [place] [address] Performed By: #### 5 7021-8 ####[facility] LABCLIA [id number] [place] [address] [place] MCH (RBC) [Entitic mass] 31.2 pg Normal 26.0-34.0 [facility] Comment on above: Order Comment: Speci men Type: BLOOD SPECIMENOrdering Facility: [facility] Address: [address] [place] [address] Performed By: #### 5 7021-8 ####[facility] LABCLIA [id number] [place] [address] [place] MCHC (RBC) [Mass/Vol] 34.1 g/dL Normal 30.5-36.0 [facility] Comment on above: Order Comment: Speci men Type: BLOOD SPECIMENOrdering Facility: [facility] Address: [address] [place] [address] Performed By: #### 5 7021-8 ####[facility] LABCLIA [id number] [place] [address] [place] MCV (RBC) [Entitic vol] 91.7 fL Normal 80.0-100.0 C [facility] Comment on above: Order Comment: Speci men Type: BLOOD SPECIMENOrdering Facility: [facility] Address: [address] [place] [address] Performed By: #### 5 7021-8 ####[facility] LABCLIA [id number] [address] [address] [place] Monocytes (Bld) [#/Vol] 1.08 10*3/uL High <0.87 [facility] Comment on above: Order Comment: Speci men Type: BLOOD SPECIMENOrdering Facility: [facility] Address: [address] [place] [address] Performed By: #### 5 7021-8 ####[facility]CLIA [id number] [place] [address] [place] Monocytes/100 WBC (Bld) 12.1 % Normal [facility] Comment on above: Order Comment: Speci men Type: BLOOD SPECIMENOrdering Facility: [facility] Address: [address] [place] [address] Performed By: #### 5 7021-8 ####[facility]CLIA [id number] [place] [address] [place] Neutrophils (Bld) [#/Vol] 5.24 10*3/uL Normal 1.45-7.50 [facility] Comment on above: Order Comment: Speci men Type: BLOOD SPECIMENOrdering Facility: [facility] Address: [address] [place] [address] Performed By: #### 5 7021-8 ####[facility] LABCLIA [id number] [place] [id number] [place] Neutrophils/100 WBC (Bld) 58.7 % Normal [facility] Comment on above: Order Comment: Speci men Type: BLOOD SPECIMENOrdering Facility: [facility] Address: [address] [place] [address] Performed By: #### 5 7021-8 ####[facility]CLIA [id number] [place] [address] [place] Nucleated RBC (Bld) [#/Vol] 10*3/uL Normal <0.01 [facility] Comment on above: Order Comment: Speci men Type: BLOOD SPECIMENOrdering Facility: [facility] Address: [address] [place] [address] Performed By: #### 5 7021-8 ####[facility]CLIA [id number] [place] [address] [place] Nucleated RBC/100 WBC (Bld) [Ratio] 0.0 /100 WBC Normal [facility] Comment on above: Order Comment: Speci men Type: BLOOD SPECIMENOrdering Facility: [facility] Address: [address] [place] [address] Performed By: #### 5 7021-8 ####[facility] LABIA [id number] [place] [address] [place] Platelet mean volume (Bld) [Entitic vol] 10.0 fL Normal 9.0-12.7 [facility] Comment on above: Order Comment: Speci men Type: BLOOD SPECIMENOrdering Facility: [facility] Address: [address] [place] [address] Performed By: #### 5 7021-8 ####[facility] LABIA [id number] [place] [address] [place] Platelets (Bld) [#/Vol] 324 10*3/uL Normal 150-400 [facility] Comment on above: Order Comment: Speci men Type: BLOOD SPECIMENOrdering Facility: [facility] Address: [address] [place] [address] Performed By: #### 5 7021-8 ####[facility] LABCLIA [id number] [address] [address] [place] RBC (Bld) [#/Vol] 3.97 10*6/uL Normal 3.90-5.20 [facility] Comment on above: Order Comment: Speci men Type: BLOOD SPECIMENOrdering Facility: [facility] Address: [address] [place] [address] Performed By: #### 5 7021-8 ####[facility] LABCLIA [id number] [address] [address] [place] WBC (Bld) [#/Vol] 8.93 10*3/uL Normal 3.70-11.00 [facility] Comment on above: Order Comment: Speci men Type: BLOOD SPECIMENOrdering Facility: [facility] Address: [address] [place] [address] Performed By: #### 5 7021-8 ####[facility] LABCLIA [id number] [address] [address] [place] Comprehensive metabolic 2000 panelon 10-06-2024 Albumin [Mass/Vol] 4.2 g/dL Normal 3.9-4.9 [facility] Comment on above: Order Comment: Speci men Type: BLOOD SPECIMENOrdering Facility: [facility] Address: [address] [place] [address] Performed By: #### 2 4323-8, 2132-02 ####[facility] LABCLIA [id number] [address] [address] [place] ALP [Catalytic activity/Vol] 68 U/L Normal 34-123 [facility] Comment on above: Order Comment: Speci men Type: BLOOD SPECIMENOrdering Facility: [facility] Address: [address] [place] [address] Performed By: #### 2 4323-8, 2132-02 ####[facility] LABCLIA [id number] [address] [address] [place] ALT [Catalytic activity/Vol] 10 U/L Normal 7-38 [facility] Comment on above: Order Comment: Speci men Type: BLOOD SPECIMENOrdering Facility: [facility] Address: [address] [place] [address] Performed By: #### 2 4323-01, 2132-02 ####[facility] LABCLIA [id number] [address] [address] [place] Anion gap [Moles/Vol] 13 mmol/L Normal 8-15 [facility] Comment on above: Order Comment: Speci men Type: BLOOD SPECIMENOrdering Facility: [facility] Address: [address] [place], [place] [address] Performed By: #### 2 4323-01, 2132-02 ####[facility] LABCLIA [id number] [address] [address] [place] AST [Catalytic activity/Vol] 20 U/L Normal 13-35 [facility] Comment on above: Order Comment: Speci men Type: BLOOD SPECIMENOrdering Facility: [facility] Address: [address] [place], [place] [address] Performed By: #### 2 4323-01, 2132-02 ####[facility] LABCLIA [id number] [address] [address] [place] Bilirubin [Mass/Vol] 0.3 mg/dL Normal 0.2-1.3 [facility] Comment on above: Order Comment: Speci men Type: BLOOD SPECIMENOrdering Facility: [facility] Address: [address] [place] [address] Performed By: #### 2 4323-01, 2132-02 ####[facility] LABCLIA [id number] [address] [address] [place] Calcium [Mass/Vol] 9.2 mg/dL Normal 8.5-10.2 [facility] Comment on above: Order Comment: Speci men Type: BLOOD SPECIMENOrdering Facility: [facility] Address: [address] [place] [address] Performed By: #### 2 4323-01, 2132-02 ####[facility] LABCLIA [id number] [address] [address] [place] Chloride [Moles/Vol] 93 mmol/L Low 98-107 [facility] Comment on above: Order Comment: Speci men Type: BLOOD SPECIMENOrdering Facility: [facility] Address: [address] [place] [address] Performed By: #### 2 4323-8, 2132-02 ####[facility] LABIA [id number] [place] [address] [place] CO2 [Moles/Vol] 23 mmol/L Normal 22-30 [facility] Comment on above: Order Comment: Speci men Type: BLOOD SPECIMENOrdering Facility: [facility] Address: [address] [place] [address] Performed By: #### 2 4323-8, 2132-02 ####[facility] LABIA [id number] [place] [address] [place] Creatinine [Mass/Vol] 1.17 mg/dL High 0.58-0.96 [facility] Comment on above: Order Comment: Speci men Type: BLOOD SPECIMENOrdering Facility: [facility] Address: [address] [place] [address] Performed By: #### 2 4323-8, 2132-02 ####[facility] LABIA [id number] [place] [address] [place] Creatinine and Glomerular filtration rate.predicted panel (S/P/Bld) 46 mL/min/1.73m??? Low >=60 [facility] Comment on above: Order Comment: Speci men Type: BLOOD SPECIMENOrdering Facility: [facility] Address: [address] [place] [address] Result Comment: Janeen mated Glomerular Filtration Rate (eGFR) is calculated using the 2020 CKD-EPI creatinine equation. This equation utilizes serum creatinine, sex, and age as parameters. The creatinine assay has traceable calibration to isotope dilution-mass spectrometry. Refer to KDIGO guidelines for clinical interpretation. In patients with unstable renal function, e.g. those with acute kidney injury, the eGFR may not accurately reflect actual GFR. Performed By: #### 2 4323-01, 2132-02 ####[facility] LABCLIA [id number] [address] [address] [place] Glucose [Mass/Vol] 123 mg/dL High 74-99 [facility] Comment on above: Order Comment: Margarito batista Type: BLOOD SPECIMENOrdering Facility: [facility] Address: [address] [place] [address] Result Comment: The [place] Diabetes Association (ADA) provides guidance for cutoff values for fasting glucose and random glucose. The ADA defines fasting as no caloric intake for at least 8 hours. Fasting plasma glucose results between 100 to 125 mg/dL indicate increased risk for diabetes (prediabetes).Fasting plasma glucose results greater than or equal to 126 mg/dL meet the criteria for diagnosis of diabetes. In the absence of unequivocal hyperglycemia, results should be confirmed by repeat testing. In a patient with classic symptoms of hyperglycemia or hyperglycemic crisis, random plasma glucose results greater than or equal to 200 mg/dL meet the criteria for diagnosis of diabetes.Reference: Standards of Medical Care in Diabetes 2016, [place] Diabetes Association. Diabetes Care. 2016.39(Suppl 1). Performed By: #### 2 4323-01, 2132-02 ####[facility] LABCLIA [id number] [facility] [address] [address] [place] Potassium [Moles/Vol] 4.1 mmol/L Normal 3.7-5.1 [facility] Comment on above: Order Comment: Margarito batista Type: BLOOD SPECIMENOrdering Facility: [facility] Address: [address] [place] [address] Performed By: #### 2 4323-01, 2132-02 ####[facility] LABCLIA [id number] [facility] [address] [address] [place] Protein [Mass/Vol] 6.8 g/dL Normal 6.3-8.0 [facility] Comment on above: Order Comment: Speci men Type: BLOOD SPECIMENOrdering Facility: [facility] Address: [address] [place], [place] [address] Performed By: #### 2 4323-8, 2132-02 ####[facility] LABCLIA [id number] [address] [address] [place] Sodium [Moles/Vol] 129 mmol/L Low 136-144 [facility] Comment on above: Order Comment: Speci men Type: BLOOD SPECIMENOrdering Facility: [facility] Address: [address] [place] [address] Performed By: #### 2 43208-15, 2132-02 ####[facility] LABCLIA [id number] [place] [address] [place] Urea nitrogen [Mass/Vol] 14 mg/dL Normal 7-21 [facility] Comment on above: Order Comment: Speci men Type: BLOOD SPECIMENOrdering Facility: [facility] Address: [address] [place] [address] Performed By: #### 2 4328, 2132-02 ####[facility] LABCLIA [id number] [place] [address] [place] HbA1c (Bld)on 10-06-2024 Average glucose Estimated from glycated hemoglobin (Bld) [Mass/Vol] 111 mg/dL Normal [facility] Comment on above: Order Comment: Speci men Type: BLOOD SPECIMENOrdering Facility: [facility] Address: [address] [place], [place] [address] Result Comment: eAG: (Estimated average glucose) is a calculated value from HgbA1c and is exhibit display representative of the average blood glucose level in the last 2-3 month period. Performed By: #### 5 5454-3 ####[facility] LABCLIA [id number] [address] [address] [place] HbA1c (Bld) [Mass fraction] 5.5 % Normal 4.3-5.6 [facility] Comment on above: Order Comment: Speci men Type: BLOOD SPECIMENOrdering Facility: [facility] Address: [address] [place] [address] Result Comment: [place] Diabetes Association guidelines indicate that patients with HgbA1c in the range 5.7-6.4% are at increased risk for development of diabetes, and intervention by lifestyle modification may be beneficial. HgbA1c greater or equal to 6.5% is considered diagnostic of diabetes. Performed By: #### 5 5454-3 ####[facility] LABCLIA [id number] [address] [address] [place] Iron and Iron binding capaci ty panelon 10-06-2024 Iron [Mass/Vol] 87 ug/dL Normal 41-186 [facility] Comment on above: Order Comment: Speci men Type: BLOOD SPECIMENOrdering Facility: [facility] Address: [address] [place] [address] Performed By: #### L IPNF, 74047-4, 3015-3, 82200-4 ####[facility] LABIA [id number] [place] [address] [place] Iron binding capacity [Mass/Vol] 325 ug/dL Normal 232-386 [facility] Comment on above: Order Comment: Speci men Type: BLOOD SPECIMENOrdering Facility: [facility] Address: [address] [place] [address] Performed By: #### L IPNF, 82442-4, 3015-3, 18693-1 ####[facility] LABIA [id number] [address] [address] [place] Iron/TIBC [Molar ratio] 26.8 % Normal 15.0-57.[address] [facility] Comment on above: Order Comment: Speci men Type: BLOOD SPECIMENOrdering Facility: [facility] Address: [address] [place] [address] Performed By: #### L IPNF, 53542-5, 6-3, 30979-7 ####[facility] LABCLIA [id number] [address] [address] [place] LIPID PANEL, NONFASTINGon Cholesterol [Mass/Vol] 191 mg/dL Normal <200 [facility] Comment on above: Order Comment: Speci men Type: BLOOD SPECIMENOrdering Facility: [facility] Address: [address] [place] [address] Result Comment: <200 mg/dL, Desirable 200-239 mg/dL, Borderline high>239 mg/dL, High Performed By: #### L IRMA, , 3015-3, 88003-4 ####[facility] LABCLIA [id number] [address] STATES OF [facility] HDL CHOLESTEROL, NF 56 mg/dL Normal >39 [facility] Comment on above: Order Comment: Speci men Type: BLOOD SPECIMENOrdering Facility: [facility] Address: [address] [place] [address] Result Comment: 40-5 9 mg/dL, Acceptable>59 mg/dL, High: Negative risk factor for coronary heart disease<40 mg/dL, Low: Positive risk factor for coronary heart disease Performed By: #### L IRMA, , 3015-3, 43013-4 ####[facility] LABCLIA [id number] [address] [address] [place] LDL CHOLESTEROL CALCULATED, NF 112 mg/dL High <100 [facility] Comment on above: Order Comment: Speci men Type: BLOOD SPECIMENOrdering Facility: [facility] Address: [address] [place] [address] Result Comment: <100 mg/dL, Optimal 100-129 mg/dL, Near optimal/above optimal 130-159 mg/dL, Borderline high 160-189 mg/dL, High>189 mg/dL, Very highSecondary prevention optimal LDL Cholesterol levels are recommended to be <70 mg/dLLDL cholesterol is calculated using the Morales-NIH equation. Performed By: #### L IRMA, , 3015-3, 74048-6 ####[facility] LABCLIA [id number] [place] [address] [facility] [place] LDL/HDL RATIO, NF 2.00 mg/dL Normal <2.54 [facility] Comment on above: Order Comment: Speci men Type: BLOOD SPECIMENOrdering Facility: [facility] Address: [address] [place] [address] Result Comment: Refe rence:1. National Cholesterol Education Program ATP III Guideline At-A-Glance Quick Desk Reference: National Heart, Lung, and Blood [place]. National Institutes of Health. 2001: NIH Publication No. 01-3305.2. An International Atherosclerosis Society position paper: global recommendations for the management of dyslipidemia: executive summary, Atherosclerosis. 2014: 232(2):410-413. Performed By: #### L IRMA, 92121-7, 3015-3, 54179-0 ####[facility] LABCLIA [id number] [address] [place] NON HDL CHOL, NF 135 mg/dL High <130 [facility] Comment on above: Order Comment: Santii men Type: BLOOD SPECIMENOrdering Facility: [facility] Address: [address] [place] [address] Result Comment: <130 mg/dL, Optimal 130-159 mg/dL, Near optimal/above optimal 160-189 mg/dL, Borderline high 190-219 mg/dL, High>219 mg/dL, Very highSecondary prevention optimal non HDL Cholesterol levels are recommended to be <100 mg/dL Performed By: #### L IPNF, 61887-0, 6-3, 47243-5 ####[facility] LABCLIA [id number] [place] [address] [facility] T CHOL/HDL RATIO NF 3.41 mg/dL Normal <5.10 [facility] Comment on above: Order Comment: Speci men Type: BLOOD SPECIMENOrdering Facility: [facility] Address: [address] [place] [address] Performed By: #### L IPNF, , 3, 79260-0 ####[facility] LABCLIA [id number] [place] [address] [place] TRIGLYCERIDES, NF 131 mg/dL Normal <150 [facility] Comment on above: Order Comment: Speci men Type: BLOOD SPECIMENOrdering Facility: [facility] Address: [address] [place] [address] Result Comment: <150 mg/dL, Normal 150-199 mg/dL, Borderline high 200-499 mg/dL, High>499 mg/dL, Very high Performed By: #### L IPNF, , 3015-08, 58025-8 ####[facility] LABCLIA [id number] [place] [address] [place] VLDL CHOLESTEROL, NF 22 mg/dL Normal <30 [facility] Comment on above: Order Comment: Speci men Type: BLOOD SPECIMENOrdering Facility: [facility] Address: [address] [place] [address] Performed By: #### L IPNF, , 3, ####[facility] LABCLIA [id number] [place] [address] [place] Magnesium SerPl-mCncon 10-06 Magnesium [Mass/Vol] 1.6 mg/dL Low 1.7-2.3 [facility] Comment on above: Order Comment: Speci men Type: BLOOD SPECIMENOrdering Facility: [facility] Address: [address] [place] [address] Performed By: #### L IPNF, , 3, 95524-1 ####[facility] LABCLIA [id number] [place] [address] [place] TSH SerPl-aCncon 10-06-2024 TSH Qn 2.440 m[IU]/L Normal 0.270-4.200 [facility] Comment on above: Order Comment: Speci men Type: BLOOD SPECIMENOrdering Facility: [facility] Address: [address] [place] [address] Performed By: #### L IPNF, 36475-7, 3016-3, 22819-2 ####[facility] LABCLIA [id number] [place] [address] [place] Vit B12 SerPl-mCncon 025 Cobalamin (Vitamin B12) [Mass/Vol] 710 pg/mL Normal 232-1245 [facility] Comment on above: Order Comment: Speci men Type: BLOOD SPECIMENOrdering Facility: [facility] Address: [address] [place] [address] Performed By: #### 2 4323-8, 2132-9 ####[facility] LABCLIA [id number] [address] [place] CNPNon 09-30-2024 CNPN Normal [facility] Bilirubin Test strip Ql (U)O rdered By: Chencho Urbina on 09-28-2024 Bilirubin Ql (U) Negative Negative [facility] Ketones Test strip Ql (U)Ord ered By: Chenhco Urbina on 09-28-2024 Ketones Ql (U) Negative Negative [facility] Microscopic analysis of urin e for red blood cells (RBC)Ordered By: Chencho Urbina on 09-28-2024 Microscopic analysis of urine for red blood cells (RBC) 0 SEEN /hpf 0-5 [facility] Mucus LM Ql (Urine sed)Order ed By: Chencho Urbina on 09-28-2024 Mucus Ql (Urine sed) RARE /hpf [facility] Nitrite Test strip Ql (U)Ord ered By: Chencho Urbina on 09-28-2024 Nitrite Ql (U) Negative Negative [facility] Protein Test strip Ql (U)Ord ered By: Chencho Urbina on 09-28-2024 Protein Ql (U) 15 mg/dl High Negative [facility] Squamous epithelial cells de tection in urine sediment by light microscopyOrdered By: Chencho Urbina on 09-28-2024 Epithelial cells.squamous LM Ql (Urine sed) 0-5 SEEN /hpf 5-10 [facility] Urine clarityOrdered By: Eliel Urbina on 09-28-2024 Clarity (U) Sl. Cloudy Clear [facility] Urine color determinationOrd ered By: Chencho Urbina on 09-28-2024 Color (U) Yellow Yellow [facility] Urine cultureOrdered By: Eliel Urbina on 09-28-2024 Bacteria identified Cx Nom (U) Raoultella planticola Abnormal [facility] Urine glucose detectionOrder ed By: Chencho Urbina on 09-28-2024 Glucose Ql (U) Normal mg/dl Normal [facility] Urine leukocyte esterase det ection by dipstickOrdered By: Chencho Urbina on 09-28-2024 Leukocyte esterase Test strip Ql (U) 100 /ul High Negative [facility] Urine pHOrdered By: Chencho Urbina on 09-28-2024 pH (U) 6.5 [pH] 5.0 - 8.0 [facility] Urine sediment bacteria coun t by microscopy (number/high power field)Ordered By: Chencho Urbina on 09-28-2024 Bacteria LM.HPF (Urine sed) [#/Area] 2 /[HPF] None Seen [facility] Urine specific gravity measu rementOrdered By: Chencho Urbina on 09-28-2024 Specific gravity (U) [Rel density] 1.010 1.002-1.030 [facility] Urine urobilinogen measureme ntOrdered By: Chencho Urbina on 09-28-2024 Urobilinogen Ql (U) Normal mg/dl Normal [facility] White blood cell countOrdere d By: Chencho Urbina on 09-28-2024 White blood cell count 10-25 SEEN /hpf 0-5 [facility] CNOVon 09-24-2024 CNOV Normal [facility] CNPNon 09-15-2024 CNPN Normal [facility] CNOVon 09-02-2024 CNOV Normal [facility] XR KNEE 4V AP/PA/LAT/MERCH B ILon 09-02-2024 XR KNEE 4V AP/PA/LAT/MERCH ASIM Normal [facility] Bacteria Ur Culton Bacteria identified Cx Nom (U) CULTURE, URINE: No growth (<1,000 CFU/ml) Normal [facility] Comment on above: Performed By: #### 6 30-4 ####[facility] LABCLIA [id number] [place] [address] [place] Comprehensive metabolic 2000 panelon 08-29-2024 Albumin [Mass/Vol] 4.1 g/dL Normal 3.9-4.9 [facility] Comment on above: Order Comment: Speci men Type: BLOOD SPECIMENOrdering Facility: [facility] Address: [address] [place] [address] Performed By: #### 3 016-3, 12197-7 ####[facility] LABCLIA [id number] [place] [address] [place] ALP [Catalytic activity/Vol] 71 U/L Normal 34-123 [facility] Comment on above: Order Comment: Speci men Type: BLOOD SPECIMENOrdering Facility: [facility] Address: [address] [place] [address] Performed By: #### 3 016-3, 53278-1 ####[facility] LABCLIA [id number] [address] [place] ALT [Catalytic activity/Vol] 11 U/L Normal 7-38 [facility] Comment on above: Order Comment: Speci men Type: BLOOD SPECIMENOrdering Facility: [facility] Address: [address] [place] [address] Performed By: #### 3 016-3, 39201-6 ####[facility] LABCLIA [id number] [place] [address] [place] Anion gap [Moles/Vol] 11 mmol/L Normal 8-15 [facility] Comment on above: Order Comment: Speci men Type: BLOOD SPECIMENOrdering Facility: [facility] Address: [address] [place] [id number] Performed By: #### 3 016-3, ####[facility] LABCLIA [id number] [address] [address] [place] AST [Catalytic activity/Vol] 25 U/L Normal 13-35 [facility] Comment on above: Order Comment: Speci men Type: BLOOD SPECIMENOrdering Facility: [facility] Address: [address] [place] [address] Performed By: #### 3 -3, ####[facility] LABCLIA [id number] [place] [address] [place] Bilirubin [Mass/Vol] 0.4 mg/dL Normal 0.2-1.3 [facility] Comment on above: Order Comment: Speci men Type: BLOOD SPECIMENOrdering Facility: [facility] Address: [address] [place] [address] Performed By: #### 3 3, ####[facility] LABCLIA [id number] [place] [address] [place] Calcium [Mass/Vol] 9.0 mg/dL Normal 8.5-10.2 [facility] Comment on above: Order Comment: Speci men Type: BLOOD SPECIMENOrdering Facility: [facility] Address: [address] [place], [place] [address] Performed By: #### 3 -3, ####[facility] LABCLIA [id number] [place] [address] [place] Chloride [Moles/Vol] 102 mmol/L Normal 98-107 [facility] Comment on above: Order Comment: Speci men Type: BLOOD SPECIMENOrdering Facility: [facility] Address: [address] [place], [place] [address] Performed By: #### 3 016-3, 61479-9 ####[facility] LABCLIA [id number] [place] [address] [place] CO2 [Moles/Vol] 23 mmol/L Normal 22-30 [facility] Comment on above: Order Comment: Speci men Type: BLOOD SPECIMENOrdering Facility: [facility] Address: [address] [place] [address] Performed By: #### 3 016-3, 54816-1 ####[facility] LABIA [id number] [place] [address] [place] Creatinine [Mass/Vol] 1.01 mg/dL High 0.58-0.96 [facility] Comment on above: Order Comment: Speci men Type: BLOOD SPECIMENOrdering Facility: [facility] Address: [address] [place] [address] Performed By: #### 3 016-3, 92008-6 ####[facility] [id number] [place] [address] [place] [facility] Creatinine and Glomerular filtration rate.predicted panel (S/P/Bld) 55 mL/min/1.73m??? Low >=60 [facility] Comment on above: Order Comment: Speci men Type: BLOOD SPECIMENOrdering Facility: [facility] Address: [address] [place] [address] Result Comment: Janeen mated Glomerular Filtration Rate (eGFR) is calculated using the 2020 CKD-EPI creatinine equation. This equation utilizes serum creatinine, sex, and age as parameters. The creatinine assay has traceable calibration to isotope dilution-mass spectrometry. Refer to KDIGO guidelines for clinical interpretation. In patients with unstable renal function, e.g. those with acute kidney injury, the eGFR may not accurately reflect actual GFR. Performed By: #### 3 016-3, 87666-5 ####[facility] LABIA [id number] [place] [address] [place] Glucose [Mass/Vol] 67 mg/dL Low 74-99 [facility] Comment on above: Order Comment: Speci men Type: BLOOD SPECIMENOrdering Facility: [facility] Address: [address] [place] [address] Result Comment: The [place] Diabetes Association (ADA) provides guidance for cutoff values for fasting glucose and random glucose. The ADA defines fasting as no caloric intake for at least 8 hours. Fasting plasma glucose results between 100 to 125 mg/dL indicate increased risk for diabetes (prediabetes).Fasting plasma glucose results greater than or equal to 126 mg/dL meet the criteria for diagnosis of diabetes. In the absence of unequivocal hyperglycemia, results should be confirmed by repeat testing. In a patient with classic symptoms of hyperglycemia or hyperglycemic crisis, random plasma glucose results greater than or equal to 200 mg/dL meet the criteria for diagnosis of diabetes.Reference: Standards of Medical Care in Diabetes 2016, [place] [employer]. Diabetes Care. 2016.39(Suppl 1). Performed By: #### 3 016-3, 35078-2 ####[facility] LABCLIA [id number] [place] [address] [place] Potassium [Moles/Vol] 4.2 mmol/L Normal 3.7-5.1 [facility] Comment on above: Order Comment: Speci men Type: BLOOD SPECIMENOrdering Facility: [facility] Address: [address] [place] [address] Performed By: #### 3 -, 30232-1 ####[facility] LABIA [id number] [place] [id number] [place] Protein [Mass/Vol] 7.1 g/dL Normal 6.3-8.0 [facility] Comment on above: Order Comment: Speci men Type: BLOOD SPECIMENOrdering Facility: [facility] Address: [address] [place] [address] Performed By: #### 3 -3, ####[facility] LABCLIA [id number] [place] [id number] [place] Sodium [Moles/Vol] 136 mmol/L Normal 136-144 [facility] Comment on above: Order Comment: Speci men Type: BLOOD SPECIMENOrdering Facility: [facility] Address: [address] [place] [address] Performed By: #### 3 016-3, 89805-1 ####[facility] LABIA [id number] [place] [address] [place] Urea nitrogen [Mass/Vol] 11 mg/dL Normal 7-21 [facility] Comment on above: Order Comment: Speci men Type: BLOOD SPECIMENOrdering Facility: [facility] Address: [address] [place] [address] Performed By: #### 3 016-3, 80380-4 ####[facility] [id number] [place] [address] [place] TSH SerPl-aCncon 08-29-2024 TSH Qn 2.200 m[IU]/L Normal 0.270-4.200 [facility] Comment on above: Order Comment: Speci men Type: BLOOD SPECIMENOrdering Facility: [facility] Address: [address] [place] [address] Performed By: #### 3 016-3, 47016-4 ####[facility] [id number] [address] [place] Urinalysis complete panel (U )on 08-29-2024 Bacteria LM.HPF (Urine sed) [#/Area] Negative Normal Negative [facility] Comment on above: Order Comment: Speci men Type: URINE SPECIMENOrdering Facility: [facility] Address: [address] [place] [address] Performed By: #### 2 4356-8 ####[facility] [id number] [place] [address] [place] Bilirubin Ql (U) Negative Normal Negative [facility] Comment on above: Order Comment: Speci men Type: URINE SPECIMENOrdering Facility: [facility] Address: [address] [place] [address] Performed By: #### 2 4356-8 ####[facility] LABCLIA [id number] [address] [place] [address] [place] Clarity (Unsp spec) Clear Normal Clear [facility] Comment on above: Order Comment: Speci men Type: URINE SPECIMENOrdering Facility: [facility] Address: [address] [place] [address] Performed By: #### 2 4356-8 ####[facility] LABCLIA [id number] [facility] [address] [place] [address] [place] Color (U) Yellow Normal Yellow [facility] Comment on above: Order Comment: Speci men Type: URINE SPECIMENOrdering Facility: [facility] Address: [address] [place] [address] Performed By: #### 2 4356-8 ####[facility] LABCLIA [id number] [place] [id number] [place] Epithelial cells LM.HPF (Urine sed) [#/Area] None Seen Normal [facility] Comment on above: Order Comment: Speci men Type: URINE SPECIMENOrdering Facility: [facility] Address: [address] [place] [address] Performed By: #### 2 4356-8 ####[facility] LABCLIA [id number] [address] [address] [place] Glucose Test strip (U) [Mass/Vol] Negative Normal Negative [facility] Comment on above: Order Comment: Speci men Type: URINE SPECIMENOrdering Facility: [facility] Address: [address] [place], [place] [address] Performed By: #### 2 4356-8 ####[facility] LABCLIA [id number] [place] [id number] [place] Hemoglobin Ql (U) Negative Normal Negative [facility] Comment on above: Order Comment: Speci men Type: URINE SPECIMENOrdering Facility: [facility] Address: [address] [place] [address] Performed By: #### 2 4356-8 ####[facility] LABCLIA [id number] [address], [place] [address] [place] Hyaline casts (Urine sed) [#/Area] 0 /[LPF] Normal 0 /LPF [facility] Comment on above: Order Comment: Speci men Type: URINE SPECIMENOrdering Facility: [facility] Address: [address] [place] [address] Performed By: #### 2 4356-8 ####[facility] LABCLIA [id number] [address], [place] [address] [place] Ketones Ql (U) Negative Normal Negative [facility] Comment on above: Order Comment: Speci men Type: URINE SPECIMENOrdering Facility: [facility] Address: [address] [place] [address] Performed By: #### 2 4356-8 ####[facility] LABCLIA [id number] [address], [place] [address] [place] Leukocyte esterase Test strip Ql (U) Negative Normal Negative [facility] Comment on above: Order Comment: Speci men Type: URINE SPECIMENOrdering Facility: [facility] Address: [address] [place] [address] Performed By: #### 2 4356-8 ####[facility] LABCLIA [id number] [address], [facility] [place] Nitrite Ql (U) Negative Normal Negative [facility] Comment on above: Order Comment: Speci men Type: URINE SPECIMENOrdering Facility: [facility] Address: [address] [place] [address] Performed By: #### 2 4356-8 ####[facility] LABCLIA [id number] [address], [facility] [place] pH (U) 6.5 [pH] Normal <8.5 [facility] Comment on above: Order Comment: Speci men Type: URINE SPECIMENOrdering Facility: [facility] Address: [address] [place] [address] Performed By: #### 2 4356-8 ####[facility] LABIA [id number] [place] [id number] [place] Protein (U) [Mass/Vol] Negative Normal Negative [facility] Comment on above: Order Comment: Speci men Type: URINE SPECIMENOrdering Facility: [facility] Address: [address] [place] [address] Performed By: #### 2 4356-8 ####[facility] LABIA [id number] [place] [address] [place] RBC LM.HPF (Urine sed) [#/Area] 0-2 /HPF Normal 0-2 /HPF [facility] Comment on above: Order Comment: Speci men Type: URINE SPECIMENOrdering Facility: [facility] Address: [address] [place] [address] Performed By: #### 2 4356-8 ####[facility] [id number] [place] [address] [place] Specific gravity (U) [Rel density] 1.007 Normal 1.005-1.030 [facility] Comment on above: Order Comment: Speci men Type: URINE SPECIMENOrdering Facility: [facility] Address: [address] [place] [address] Performed By: #### 2 4356-8 ####[facility] LABIA [id number] [place] [address] [place] Urobilinogen Ql (U) 0.2 EU/dL Normal 0.2-1.0 EU/dL [facility] Comment on above: Order Comment: Speci men Type: URINE SPECIMENOrdering Facility: [facility] Address: [address] [place] [address] Performed By: #### 2 4356-8 ####[facility] LABCLIA [id number] [place] [address] [place] WBC LM.HPF (Urine sed) [#/Area] 0-5 /HPF Normal 0-5 /HPF [facility] Comment on above: Order Comment: Speci men Type: URINE SPECIMENOrdering Facility: [facility] Address: [address] [place] [address] Performed By: #### 2 4356-8 ####[facility] LABCLIA [id number] [place] [id number] [place] CNPNon 08-28-2024 CNPN Normal [facility] Bacteria Ur Culton Bacteria identified Cx Nom (U) Normal [facility] Comment on above: Performed By: #### 6 30-4 ####[facility] LABIA [id number] [place] [address] [place] CNOVon 08-17-2024 CNOV Normal [facility] UA DIP, URINE (POC)on 2024 BILIRUBIN UA (POCT) Small Abnormal Negative [facility] CLARITY UA (POCT) Slightly Cloudy Cl [facility] COLOR UA (POCT) Dark yellow [facility] GLUCOSE UA (POCT) Negative Negative mg/dL [facility] Hemoglobin Ql (U) Negative Negative [place] Interpretation and review of laboratory results Abnormal [facility] KETONE UA (POCT) Trace Negative mg/dL [facility] LEUKOCYTES UA (POCT) Trace Abnormal Negative [facility] NITRITE UA (POCT) Negative Negative [place] PH UA (POCT) 5.5 4.5 - 8.0 [facility] Protein Ql (U) 30 mg/dL Abnormal Negative [facility] SPECIFIC GRAVITY UA (POCT) 1.025 1.005 - 1.030 [facility] UROBILINOGEN UA (POCT) 0.2 Normal E.U./d L [facility] Location:[address], [place], [place], [address] [place] [address] POINT OF CARE [facility] Urinalysis complete panel (U )on 07-29-2024 Bacteria LM.HPF (Urine sed) [#/Area] Negative Normal Negative [facility] Comment on above: Order Comment: Speci men Type: URINE SPECIMENOrdering Facility: [facility] Address: [address] [place] [address] Performed By: #### 2 4356-8 ####[facility] LABCLIA [id number] [place] [address] [place] Bilirubin Ql (U) Negative Normal Negative [facility] Comment on above: Order Comment: Speci men Type: URINE SPECIMENOrdering Facility: [facility] Address: [address] [place] [address] Performed By: #### 2 4356-8 ####[facility] LABCLIA [id number] [place] [address] [place] Clarity (Unsp spec) Clear Normal Clear [facility] Comment on above: Order Comment: Speci men Type: URINE SPECIMENOrdering Facility: [facility] Address: [address] [place] [address] Performed By: #### 2 4356-8 ####[facility] LABCLIA [id number] [place] [address] [place] Color (U) Yellow Normal Yellow [facility] Comment on above: Order Comment: Speci men Type: URINE SPECIMENOrdering Facility: [facility] Address: [address] [place] [address] Performed By: #### 2 4356-8 ####[facility] LABCLIA [id number] [place] [address] [place] Epithelial cells LM.HPF (Urine sed) [#/Area] Few Normal [facility] Comment on above: Order Comment: Speci men Type: URINE SPECIMENOrdering Facility: [facility] Address: [address] [place] [address] Performed By: #### 2 4356-8 ####[facility] LABCLIA [id number] [place] [address] [place] Glucose Test strip (U) [Mass/Vol] Negative Normal Negative [facility] Comment on above: Order Comment: Speci men Type: URINE SPECIMENOrdering Facility: [facility] Address: [address] [place] [address] Performed By: #### 2 4356-8 ####[facility] LABCLIA [id number] [place] [address] [place] Hemoglobin Ql (U) Negative Normal Negative [facility] Comment on above: Order Comment: Speci men Type: URINE SPECIMENOrdering Facility: [facility] Address: [address] [place] [address] Performed By: #### 2 4356-8 ####[facility] LABCLIA [id number] [place] [address] [place] Hyaline casts (Urine sed) [#/Area] 1-3 /LPF Abnormal 0 /LPF [facility] Comment on above: Order Comment: Speci men Type: URINE SPECIMENOrdering Facility: [facility] Address: [address] [place] [address] Performed By: #### 2 4356-8 ####[facility] LABCLIA [id number] [place] [address] [place] Ketones Ql (U) Negative Normal Negative [facility] Comment on above: Order Comment: Speci men Type: URINE SPECIMENOrdering Facility: [facility] Address: [address] [place] [address] Performed By: #### 2 4356-8 ####[facility] LABCLIA [id number] [place] [address] [place] Leukocyte esterase Test strip Ql (U) Trace Abnormal Negative [facility] Comment on above: Order Comment: Speci men Type: URINE SPECIMENOrdering Facility: [facility] Address: [address] [place] [address] Performed By: #### 2 4356-8 ####[facility] LABCLIA [id number] [place] [address] [place] Nitrite Ql (U) Negative Normal Negative [facility] Comment on above: Order Comment: Speci men Type: URINE SPECIMENOrdering Facility: [facility] Address: [address] [place] [address] Performed By: #### 2 4356-8 ####[facility] LABCLIA [id number] [place] [address] [place] pH (U) 6.0 [pH] Normal <8.5 [facility] Comment on above: Order Comment: Speci men Type: URINE SPECIMENOrdering Facility: [facility] Address: [address] [place] [address] Performed By: #### 2 4356-8 ####[facility] LABCLIA [id number] [place] [address] [place] Protein (U) [Mass/Vol] Negative Normal Negative [facility] Comment on above: Order Comment: Speci men Type: URINE SPECIMENOrdering Facility: [facility] Address: [address] [place] [address] Performed By: #### 2 4356-8 ####[facility] LABIA [id number] [place] [address] [place] RBC LM.HPF (Urine sed) [#/Area] 0-2 /HPF Normal 0-2 /HPF [facility] Comment on above: Order Comment: Speci men Type: URINE SPECIMENOrdering Facility: [facility] Address: [address] [place] [address] Performed By: #### 2 4356-8 ####[facility] LABCLIA [id number] [place] [address] [place] Specific gravity (U) [Rel density] 1.014 Normal 1.005-1.030 [facility] Comment on above: Order Comment: Speci men Type: URINE SPECIMENOrdering Facility: [facility] Address: [address] [place] [address] Performed By: #### 2 4356-8 ####[facility] LABCLIA [id number] [place] [address] [place] Urobilinogen Ql (U) 0.2 EU/dL Normal 0.2-1.0 EU/dL [facility] Comment on above: Order Comment: Speci men Type: URINE SPECIMENOrdering Facility: [facility] Address: [address] [place] [address] Performed By: #### 2 4356-8 ####[facility] LABCLIA [id number] [place] [address] [place] WBC LM.HPF (Urine sed) [#/Area] 0-5 /HPF Normal 0-5 /HPF [facility] Comment on above: Order Comment: Speci men Type: URINE SPECIMENOrdering Facility: [facility] Address: [address] [place] [address] Performed By: #### 2 4356-8 ####[facility] LABIA [id number] [place] [address] [place] CNPNon 07-06-2024 CNPN Normal [facility] CNPNon 06-26-2024 CNPN Normal [facility] US KIDNEY/BLADDERon 06-24-19 US KIDNEY/BLADDER Normal [facility] CNPNon 06-18-2024 CNPN Normal [facility] Urinalysis complete panel (U )on 06-17-2024 Bacteria LM.HPF (Urine sed) [#/Area] Negative Normal Negative [facility] Comment on above: Order Comment: Speci men Type: URINE SPECIMENOrdering Facility: [facility] Address: [address] [place] [address] Performed By: #### 2 4356-8 ####[facility] LABCLIA [id number] [place] [address] [place] Bilirubin Ql (U) 1+ Abnormal Negative [facility] Comment on above: Order Comment: Speci men Type: URINE SPECIMENOrdering Facility: [facility] Address: [address] [place] [address] Result Comment: Sugg est correlation with clinical findings and serum bilirubin if clinically indicated. Performed By: #### 2 4356-8 ####[facility] LABCLIA [id number] [place] [address] [place] CALCIUM OXALATE CRYSTALS (UA) Moderate Abnormal None Seen [facility] Comment on above: Order Comment: Speci men Type: URINE SPECIMENOrdering Facility: [facility] Address: [address] [place] [address] Performed By: #### 2 4356-8 ####[facility] LABIA [id number] [place] [address] [place] Clarity (Unsp spec) Turbid Abnormal Clear [facility] Comment on above: Order Comment: Speci men Type: URINE SPECIMENOrdering Facility: [facility] Address: [address] [place] [address] Performed By: #### 2 4356-8 ####[facility] LABCLIA [id number] [place] [address] [place] Color (U) Dark Yellow Abnormal Yellow [facility] Comment on above: Order Comment: Speci men Type: URINE SPECIMENOrdering Facility: [facility] Address: [address] [place] [address] Performed By: #### 2 4356-8 ####[facility] LABIA [id number] [place] [address] [place] Epithelial cells LM.HPF (Urine sed) [#/Area] Moderate Normal [facility] Comment on above: Order Comment: Speci men Type: URINE SPECIMENOrdering Facility: [facility] Address: [address] [place] [address] Performed By: #### 2 4356-8 ####[facility] LABCLIA [id number] [place] [address] [place] Glucose Test strip (U) [Mass/Vol] Negative Normal Negative [facility] Comment on above: Order Comment: Speci men Type: URINE SPECIMENOrdering Facility: [facility] Address: [address] [place] [address] Performed By: #### 2 4356-8 ####[facility] LABCLIA [id number] [place] [address] [place] Hemoglobin Ql (U) Negative Normal Negative [facility] Comment on above: Order Comment: Speci men Type: URINE SPECIMENOrdering Facility: [facility] Address: [address] [place] [address] Performed By: #### 2 4356-8 ####[facility] LABCLIA [id number] [place] [address] [place] Hyaline casts (Urine sed) [#/Area] 4-10 /LPF Abnormal 0 /LPF [facility] Comment on above: Order Comment: Speci men Type: URINE SPECIMENOrdering Facility: [facility] Address: [address] [place] [address] Performed By: #### 2 4356-8 ####[facility] LABCLIA [id number] [place] [address] [place] Ketones Ql (U) Trace Abnormal Negative [facility] Comment on above: Order Comment: Speci men Type: URINE SPECIMENOrdering Facility: [facility] Address: [address] [place] [address] Performed By: #### 2 4356-8 ####[facility] LABCLIA [id number] [place] [address] [place] Leukocyte esterase Test strip Ql (U) Trace Abnormal Negative [facility] Comment on above: Order Comment: Speci men Type: URINE SPECIMENOrdering Facility: [facility] Address: [address] [place] [address] Performed By: #### 2 4356-8 ####[facility] LABCLIA [id number] [place] [address] [place] Nitrite Ql (U) Negative Normal Negative [facility] Comment on above: Order Comment: Speci men Type: URINE SPECIMENOrdering Facility: [facility] Address: [address] [place] [address] Performed By: #### 2 4356-8 ####[facility] LABCLIA [id number] [place] [address] [place] pH (U) 5.5 [pH] Normal <8.5 [facility] Comment on above: Order Comment: Speci men Type: URINE SPECIMENOrdering Facility: [facility] Address: [address] [place] [address] Performed By: #### 2 4356-8 ####[facility] LABIA [id number] [place] [address] [place] Protein (U) [Mass/Vol] 1+ Abnormal Negative Cl [facility] Comment on above: Order Comment: Speci men Type: URINE SPECIMENOrdering Facility: [facility] Address: [address] [place] [address] Performed By: #### 2 4356-8 ####[facility] LABCLIA [id number] [place] [address] [place] RBC LM.HPF (Urine sed) [#/Area] 3-5 /HPF Abnormal 0-2 /HPF [facility] Comment on above: Order Comment: Speci men Type: URINE SPECIMENOrdering Facility: [facility] Address: [address] [place] [address] Performed By: #### 2 4356-8 ####[facility] LABCLIA [id number] [place] [address] [place] Specific gravity (U) [Rel density] 1.030 Normal 1.005-1.030 [facility] Comment on above: Order Comment: Speci men Type: URINE SPECIMENOrdering Facility: [facility] Address: [address] [place] [address] Performed By: #### 2 4356-8 ####[facility] LABCLIA [id number] [place] [address] [place] Urobilinogen Ql (U) 0.2 EU/dL Normal 0.2-1.0 EU/dL Cl [facility] Comment on above: Order Comment: Speci men Type: URINE SPECIMENOrdering Facility: [facility] Address: [address] [place] [address] Performed By: #### 2 4356-8 ####[facility] LABCLIA [id number] [place] [address] [place] WBC LM.HPF (Urine sed) [#/Area] 0-5 /HPF Normal 0-5 /HPF [facility] Comment on above: Order Comment: Speci men Type: URINE SPECIMENOrdering Facility: [facility] Address: [address] [place] [address] Performed By: #### 2 4356-8 ####[facility] LABCLIA [id number] [place] [address] [place] CNOVon 06-15-2024 CNOV Normal [facility] CNOVon 06-08-2024 CNOV Normal [facility] UA DIP, URINE (POC)on 2023 BILIRUBIN UA (POCT) Negative Negative [facility] CLARITY UA (POCT) Clear [place] COLOR UA (POCT) Yellow [facility] GLUCOSE UA (POCT) Negative Negative mg/dL [facility] Hemoglobin Ql (U) Negative Negative [place] Interpretation and review of laboratory results Abnormal [facility] KETONE UA (POCT) Trace Negative mg/dL [facility] LEUKOCYTES UA (POCT) Negative Negative [facility] NITRITE UA (POCT) Negative Negative [place] PH UA (POCT) 5.5 4.5 - 8.0 [facility] Protein Ql (U) 30 mg/dL Abnormal Negative [facility] SPECIFIC GRAVITY UA (POCT) 1.025 1.005 - 1.030 [facility] UROBILINOGEN UA (POCT) 0.2 Normal E.U./d L [facility] Location:[facility], [address] [place] [address], [place], [place], [id number] [place] [address] POINT OF CARE [facility] CNPNon 05-12-2024 CNPN Normal [facility] CNPNon 05-11-2024 CNPN Normal [facility] CNOVon 05-04-2024 CNOV Normal [facility] CNPNon 05-01-2024 CNPN Normal [facility] Bacteria Ur Culton Bacteria identified Cx Nom (U) Abnormal [facility] Comment on above: Performed By: #### 6 30-4 ####[facility] LABCLIA [id number] [place] [address] [place] CNOVon 04-29-2024 CNOV Normal [facility] CNPNon 04-29-2024 CNPN Normal [facility] UA DIP, URINE (POC)on 2023 BILIRUBIN UA (POCT) Negative Negative [facility] CLARITY UA (POCT) Cloudy [place] COLOR UA (POCT) Dark yellow [facility] GLUCOSE UA (POCT) Negative Negative mg/dL [facility] Hemoglobin Ql (U) Moderate Abnormal Negative [place] Interpretation and review of laboratory results Abnormal [facility] KETONE UA (POCT) Negative Negative mg/dL [facility] LEUKOCYTES UA (POCT) Moderate Abnormal Negative [facility] NITRITE UA (POCT) Negative Negative [place] PH UA (POCT) 6.0 4.5 - 8.0 [facility] Protein Ql (U) 100 mg/dL Abnormal Negative [facility] SPECIFIC GRAVITY UA (POCT) 1.015 1.005 - 1.030 [facility] UROBILINOGEN UA (POCT) 0.2 Normal E.U./d L [facility] Location:[facility], [address], [place], [address] [facility] POINT OF CARE [facility] CNPNon 04-03-2024 CNPN Normal [facility] CNPNon 03-26-2024 CNPN Normal [facility] Basic metabolic 2000 panelon 03-25-2024 Anion gap [Moles/Vol] 13 mmol/L Normal 8-15 [facility] Comment on above: Order Comment: Speci men Type: BLOOD SPECIMENOrdering Facility: [facility] Address: [address] [place] [address] Performed By: #### 2 4321-2 ####[facility] LABCLIA [id number] [place] [address] [place] Calcium [Mass/Vol] 8.9 mg/dL Normal 8.5-10.2 [facility] Comment on above: Order Comment: Speci men Type: BLOOD SPECIMENOrdering Facility: [facility] Address: [address] [place] [address] Performed By: #### 2 4321-2 ####[facility] LABCLIA [id number] [place] [address] [place] Chloride [Moles/Vol] 108 mmol/L High 98-107 [facility] Comment on above: Order Comment: Speci men Type: BLOOD SPECIMENOrdering Facility: [facility] Address: [address] [place] [address] Performed By: #### 2 4321-2 ####[facility] LABCLIA [id number] [facility] [address] [address] [place] CO2 [Moles/Vol] 17 mmol/L Low 22-30 [facility] Comment on above: Order Comment: Speci men Type: BLOOD SPECIMENOrdering Facility: [facility] Address: [address] [place], [place] [address] Performed By: #### 2 4321-2 ####[facility] LABCLIA [id number] [place] [address] [place] Creatinine [Mass/Vol] 1.17 mg/dL High 0.58-0.96 [facility] Comment on above: Order Comment: Margarito batista Type: BLOOD SPECIMENOrdering Facility: [facility] Address: [address] [place] [address] Performed By: #### 2 4321-2 ####[facility] LABIA [id number] [address] OF [facility] Creatinine and Glomerular filtration rate.predicted panel (S/P/Bld) 46 mL/min/1.73m??? Low >=60 [facility] Comment on above: Order Comment: Margarito batista Type: BLOOD SPECIMENOrdering Facility: [facility] Address: [address] [place] [address] Result Comment: Janeen mated Glomerular Filtration Rate (eGFR) is calculated using the 2020 CKD-EPI creatinine equation. This equation utilizes serum creatinine, sex, and age as parameters. The creatinine assay has traceable calibration to isotope dilution-mass spectrometry. Refer to KDIGO guidelines for clinical interpretation. In patients with unstable renal function, e.g. those with acute kidney injury, the eGFR may not accurately reflect actual GFR. Performed By: #### 2 4321-2 ####[facility] LABIA [id number] [place] [address] [place] Glucose [Mass/Vol] 129 mg/dL High 74-99 [facility] Comment on above: Order Comment: Margarito batista Type: BLOOD SPECIMENOrdering Facility: [facility] Address: [address] [place] [address] Result Comment: The [place] [employer] (ADA) provides guidance for cutoff values for fasting glucose and random glucose. The ADA defines fasting as no caloric intake for at least 8 hours. Fasting plasma glucose results between 100 to 125 mg/dL indicate increased risk for diabetes (prediabetes).Fasting plasma glucose results greater than or equal to 126 mg/dL meet the criteria for diagnosis of diabetes. In the absence of unequivocal hyperglycemia, results should be confirmed by repeat testing. In a patient with classic symptoms of hyperglycemia or hyperglycemic crisis, random plasma glucose results greater than or equal to 200 mg/dL meet the criteria for diagnosis of diabetes.Reference: Standards of Medical Care in Diabetes 2016, [place] [employer]. Diabetes Care. 2016.39(Suppl 1). Performed By: #### 2 4321-2 ####[facility] LABCLIA [id number] [place] [address] [place] Potassium [Moles/Vol] 3.9 mmol/L Normal 3.7-5.1 [facility] Comment on above: Order Comment: Speci men Type: BLOOD SPECIMENOrdering Facility: [facility] Address: [address] [place] [address] Performed By: #### 2 4321-2 ####[facility] LABIA [id number] [place] [address] [place] Sodium [Moles/Vol] 138 mmol/L Normal 136-144 [facility] Comment on above: Order Comment: Speci men Type: BLOOD SPECIMENOrdering Facility: [facility] Address: [address] [place] [address] Performed By: #### 2 4321-2 ####[facility] LABIA [id number] [place] [address] [place] Urea nitrogen [Mass/Vol] 15 mg/dL Normal 7-21 [facility] Comment on above: Order Comment: Speci men Type: BLOOD SPECIMENOrdering Facility: [facility] Address: [address] [place] [address] Performed By: #### 2 4321-2 ####[facility] LABIA [id number] [place] [address] [place] CBC W Auto Differential pane l (Bld)on 03-25-2024 Basophils (Bld) [#/Vol] 0.07 10*3/uL Normal <0.11 [facility] Comment on above: Order Comment: Speci men Type: BLOOD SPECIMENOrdering Facility: [facility] Address: [address] [place] [address] Performed By: #### 5 7021-8 ####[facility] LABCLIA [id number] [place] [address] [place] Basophils/100 WBC (Bld) 0.7 % Normal C [facility] Comment on above: Order Comment: Speci men Type: BLOOD SPECIMENOrdering Facility: [facility] Address: [address] [place] [address] Performed By: #### 5 7021-8 ####[facility] LABCLIA [id number] [place] [address] [place] Differential cell count method Nom (Bld) Auto Normal [facility] Comment on above: Order Comment: Speci men Type: BLOOD SPECIMENOrdering Facility: [facility] Address: [address] [place] [address] Performed By: #### 5 7021-8 ####[facility] LABCLIA [id number] [place] [address] [place] Eosinophils (Bld) [#/Vol] 0.70 10*3/uL High <0.46 [facility] Comment on above: Order Comment: Speci men Type: BLOOD SPECIMENOrdering Facility: [facility] Address: [address] [place] [address] Performed By: #### 5 7021-8 ####[facility] LABCLIA [id number] [place] [address] [place] Eosinophils/100 WBC (Bld) 6.6 % Normal [facility] Comment on above: Order Comment: Speci men Type: BLOOD SPECIMENOrdering Facility: [facility] Address: [address] [place] [address] Performed By: #### 5 7021-8 ####[facility] LABCLIA [id number] [place] [address] [place] Erythrocyte distribution width (RBC) [Ratio] 15.0 % Normal 11.5-15.0 [facility] Comment on above: Order Comment: Speci men Type: BLOOD SPECIMENOrdering Facility: [facility] Address: [address] [place] [address] Performed By: #### 5 7021-8 ####[facility] LABCLIA [id number] [place] [address] [place] Hematocrit (Bld) [Volume fraction] 35.8 % Low 36.0-46.0 [facility] Comment on above: Order Comment: Speci men Type: BLOOD SPECIMENOrdering Facility: [facility] Address: [address] [place] [address] Performed By: #### 5 7021-8 ####[facility] LABCLIA [id number] [place] [address] [place] Hemoglobin (Bld) [Mass/Vol] 12.2 g/dL Normal 11.5-15.5 [facility] Comment on above: Order Comment: Speci men Type: BLOOD SPECIMENOrdering Facility: [facility] Address: [address] [place] [address] Performed By: #### 5 7021-8 ####[facility] LABIA [id number] [place] [address] [place] Immature granulocytes (Bld) [#/Vol] 0.09 10*3/uL Normal <0.10 [facility] Comment on above: Order Comment: Speci men Type: BLOOD SPECIMENOrdering Facility: [facility] Address: [address] [place] [address] Performed By: #### 5 7021-8 ####[facility] LABCLIA [id number] [place] [address] [place] Immature granulocytes/100 WBC (Bld) 0.8 % Normal [facility] Comment on above: Order Comment: Speci men Type: BLOOD SPECIMENOrdering Facility: [facility] Address: [address] [place], [place] [address] Performed By: #### 5 7021-8 ####[facility] LABCLIA [id number] [place] [address] [place] Lymphocytes (Bld) [#/Vol] 1.41 10*3/uL Normal 1.00-4.00 [facility] Comment on above: Order Comment: Speci men Type: BLOOD SPECIMENOrdering Facility: [facility] Address: [address] [place] [address] Performed By: #### 5 7021-8 ####[facility] LABCLIA [id number] [place] [address] [place] Lymphocytes/100 WBC (Bld) 13.2 % Normal [facility] Comment on above: Order Comment: Speci men Type: BLOOD SPECIMENOrdering Facility: [facility] Address: [address] [place] [address] Performed By: #### 5 7021-8 ####[facility] LABCLIA [id number] [place] [address] [place] MCH (RBC) [Entitic mass] 33.6 pg Normal 26.0-34.0 [facility] Comment on above: Order Comment: Speci men Type: BLOOD SPECIMENOrdering Facility: [facility] Address: [address] [place] [address] Performed By: #### 5 7021-8 ####[facility] LABCLIA [id number] [place] [address] [place] MCHC (RBC) [Mass/Vol] 34.1 g/dL Normal 30.5-36.0 [facility] Comment on above: Order Comment: Speci men Type: BLOOD SPECIMENOrdering Facility: [facility] Address: [address] [place] [address] Performed By: #### 5 7021-8 ####[facility] LABCLIA [id number] [address] [id number] [address] [place] MCV (RBC) [Entitic vol] 98.6 fL Normal 80.0-100.0 C [facility] Comment on above: Order Comment: Speci men Type: BLOOD SPECIMENOrdering Facility: [facility] Address: [address] [place] [address] Performed By: #### 5 7021-8 ####[facility] LABCLIA [id number] [place] [address] [place] Monocytes (Bld) [#/Vol] 1.07 10*3/uL High <0.87 [facility] Comment on above: Order Comment: Speci men Type: BLOOD SPECIMENOrdering Facility: [facility] Address: [address] [place] [address] Performed By: #### 5 7021-8 ####[facility] LABCLIA [id number] [place] [address] [place] Monocytes/100 WBC (Bld) 10.0 % Normal C [facility] Comment on above: Order Comment: Speci men Type: BLOOD SPECIMENOrdering Facility: [facility] Address: [address] [place] [address] Performed By: #### 5 7021-8 ####[facility] LABCLIA [id number] [place] [address] [place] Neutrophils (Bld) [#/Vol] 7.34 10*3/uL Normal 1.45-7.50 [facility] Comment on above: Order Comment: Speci men Type: BLOOD SPECIMENOrdering Facility: [facility] Address: [address] [place] [address] Performed By: #### 5 7021-8 ####[facility] LABCLIA [id number] [place] [address] [place] Neutrophils/100 WBC (Bld) 68.7 % Normal [facility] Comment on above: Order Comment: Speci men Type: BLOOD SPECIMENOrdering Facility: [facility] Address: [address] [place] [address] Performed By: #### 5 7021-8 ####[facility] LABCLIA [id number] [place] [address] [place] Nucleated RBC (Bld) [#/Vol] 10*3/uL Normal <0.01 [facility] Comment on above: Order Comment: Speci men Type: BLOOD SPECIMENOrdering Facility: [facility] Address: [address] [place] [address] Performed By: #### 5 7021-8 ####[facility] LABIA [id number] [place] [address] [place] Nucleated RBC/100 WBC (Bld) [Ratio] 0.0 /100 WBC Normal [facility] Comment on above: Order Comment: Speci men Type: BLOOD SPECIMENOrdering Facility: [facility] Address: [address] [place] [address] Performed By: #### 5 7021-8 ####[facility] LABIA [id number] [place] [address] [place] Platelet mean volume (Bld) [Entitic vol] 9.9 fL Normal 9.0-12.7 [facility] Comment on above: Order Comment: Speci men Type: BLOOD SPECIMENOrdering Facility: [facility] Address: [address] [place] [address] Performed By: #### 5 7021-8 ####[facility] LABCLIA [id number] [place] [address] [place] Platelets (Bld) [#/Vol] 368 10*3/uL Normal 150-400 [facility] Comment on above: Order Comment: Speci men Type: BLOOD SPECIMENOrdering Facility: [facility] Address: [address] [place] [address] Performed By: #### 5 7021-8 ####[facility] LABCLIA [id number] [place] [address] [place] RBC (Bld) [#/Vol] 3.63 10*6/uL Low 3.90-5.20 [facility] Comment on above: Order Comment: Speci men Type: BLOOD SPECIMENOrdering Facility: [facility] Address: [address] [place] [address] Performed By: #### 5 7021-8 ####[facility] LABCLIA [id number] [place] [address] [place] WBC (Bld) [#/Vol] 10.68 10*3/uL Normal 3.70-11.00 [facility] Comment on above: Order Comment: Speci men Type: BLOOD SPECIMENOrdering Facility: [facility] Address: [address] [place] [address] Performed By: #### 5 7021-8 ####[facility] LABIA [id number] [place] [address] [place] CNOVon 03-25-2024 CNOV Normal [facility] CNPNon 03-25-2024 CNPN Normal [facility] TSH SerPl-aCncon 03-25-2024 TSH Qn 1.580 m[IU]/L Normal 0.270-4.200 [facility] Comment on above: Order Comment: Speci men Type: BLOOD SPECIMENOrdering Facility: [facility] Address: [address] [place] [address] Performed By: #### 3 016-3 ####[facility] LABCLIA [id number] [place] [address] [place] CNPNon 03-17-2024 CNPN Normal [facility] Basic metabolic 2000 panelon 03-16-2024 Anion gap [Moles/Vol] 13 mmol/L Normal 8-15 [facility] Comment on above: Order Comment: Speci men Type: BLOOD SPECIMENOrdering Facility: [facility] Address: [address] [place] [address] Performed By: #### 2 4321-2 ####[facility] LILLY MILLTOWNCLIA [id number] [place] [address] [place] Calcium [Mass/Vol] 9.1 mg/dL Normal 8.5-10.2 [facility] Comment on above: Order Comment: Speci men Type: BLOOD SPECIMENOrdering Facility: [facility] Address: [address] [place] [address] Performed By: #### 2 4321-2 ####[facility] MILLTOWNCLIA [id number] [place] [address] [place] Chloride [Moles/Vol] 107 mmol/L Normal 98-107 [facility] Comment on above: Order Comment: Speci men Type: BLOOD SPECIMENOrdering Facility: [facility] Address: [address] [place] [address] Performed By: #### 2 4321-2 ####[facility] MILLWNCLIA [id number] [place] [address] [place] CO2 [Moles/Vol] 18 mmol/L Low 22-30 [facility] Comment on above: Order Comment: Speci men Type: BLOOD SPECIMENOrdering Facility: [facility] Address: [address] [place] [address] Performed By: #### 2 4321-2 ####[facility] MILLWNCLIA [id number] [place] [address] [place] Creatinine [Mass/Vol] 1.06 mg/dL High 0.58-0.96 [facility] Comment on above: Order Comment: Speci men Type: BLOOD SPECIMENOrdering Facility: [facility] Address: [address] [place] [address] Performed By: #### 2 4321-2 ####[facility] [id number] [place] [address] [place] Creatinine and Glomerular filtration rate.predicted panel (S/P/Bld) 52 mL/min/1.73m??? Low >=60 [facility] Comment on above: Order Comment: Margarito batista Type: BLOOD SPECIMENOrdering Facility: [facility] Address: [address] [place] [address] Result Comment: Janeen mated Glomerular Filtration Rate (eGFR) is calculated using the 2020 CKD-EPI creatinine equation. This equation utilizes serum creatinine, sex, and age as parameters. The creatinine assay has traceable calibration to isotope dilution-mass spectrometry. Refer to KDIGO guidelines for clinical interpretation. In patients with unstable renal function, e.g. those with acute kidney injury, the eGFR may not accurately reflect actual GFR. Performed By: #### 2 4321-2 ####[facility] [id number] [place] [address] [place] Glucose [Mass/Vol] 118 mg/dL High 74-99 [facility] Comment on above: Order Comment: Margarito batista Type: BLOOD SPECIMENOrdering Facility: [facility] Address: [address] [place] [address] Result Comment: The [place] [employer] (ADA) provides guidance for cutoff values for fasting glucose and random glucose. The ADA defines fasting as no caloric intake for at least 8 hours. Fasting plasma glucose results between 100 to 125 mg/dL indicate increased risk for diabetes (prediabetes).Fasting plasma glucose results greater than or equal to 126 mg/dL meet the criteria for diagnosis of diabetes. In the absence of unequivocal hyperglycemia, results should be confirmed by repeat testing. In a patient with classic symptoms of hyperglycemia or hyperglycemic crisis, random plasma glucose results greater than or equal to 200 mg/dL meet the criteria for diagnosis of diabetes.Reference: Standards of Medical Care in Diabetes 2016, [place] [employer]. Diabetes Care. 2016.39(Suppl 1). Performed By: #### 2 4321-2 ####[facility] [id number] [place] [address] [place] Potassium [Moles/Vol] 3.4 mmol/L Low 3.7-5.1 [facility] Comment on above: Order Comment: Speci men Type: BLOOD SPECIMENOrdering Facility: [facility] Address: [address] [place] [address] Performed By: #### 2 4321-2 ####[facility] [id number] [place] [address] [place] Sodium [Moles/Vol] 138 mmol/L Normal 136-144 [facility] Comment on above: Order Comment: Speci men Type: BLOOD SPECIMENOrdering Facility: [facility] Address: [address] [place] [address] Performed By: #### 2 4321-2 ####[facility] [id number] [place] [address] [place] Urea nitrogen [Mass/Vol] 15 mg/dL Normal 7-21 [facility] Comment on above: Order Comment: Speci men Type: BLOOD SPECIMENOrdering Facility: [facility] Address: [address] [place] [address] Performed By: #### 2 4321-2 ####[facility] [id number] [place] [address] [place] CNOVon 03-16-2024 CNOV Normal [facility] XR PELVIS 2V INLET/OUTLETon 03-16-2024 XR PELVIS 2V INLET/OUTLET Normal [facility] CNPNon 03-11-2024 CNPN Normal [facility] CNPTOUTREACHon 03-11-2024 CNPTOUTREACH Normal [facility] CNPTOUTREACHon 03-04-2024 CNPTOUTREACH Normal [facility] CNPNon 03-03-2024 CNPN Normal [facility] Basic metabolic 2000 panelon 03-02-2024 Anion gap [Moles/Vol] 9 mmol/L Normal 8-15 [facility] Comment on above: Order Comment: Speci men Type: BLOOD SPECIMENOrdering Facility: [facility] Address: [address] [place] [address] Performed By: #### 2 4321-2 ####[facility] MILLTOWNCLIA [id number] [place] [address] [place] Calcium [Mass/Vol] 8.9 mg/dL Normal 8.5-10.2 [facility] Comment on above: Order Comment: Speci men Type: BLOOD SPECIMENOrdering Facility: [facility] Address: [address] [place] [address] Performed By: #### 2 4321-2 ####[facility] MILLWNCLIA [id number] [place] [address] [place] Chloride [Moles/Vol] 108 mmol/L High 98-107 [facility] Comment on above: Order Comment: Speci men Type: BLOOD SPECIMENOrdering Facility: [facility] Address: [address] [place] [address] Performed By: #### 2 4321-2 ####[facility] [id number] [place] [address] [place] CO2 [Moles/Vol] 19 mmol/L Low 22-30 [facility] Comment on above: Order Comment: Speci men Type: BLOOD SPECIMENOrdering Facility: [facility] Address: [address] [place] [address] Performed By: #### 2 4321-2 ####[facility] MILLTOWNCLIA [id number] [place] [address] [place] Creatinine [Mass/Vol] 1.10 mg/dL High 0.58-0.96 [facility] Comment on above: Order Comment: Speci men Type: BLOOD SPECIMENOrdering Facility: [facility] Address: [address] [place] [address] Performed By: #### 2 4321-2 ####[facility] MILLTOWNCLIA [id number] [place] [address] [place] Creatinine and Glomerular filtration rate.predicted panel (S/P/Bld) 50 mL/min/1.73m??? Low >=60 [facility] Comment on above: Order Comment: Margarito batista Type: BLOOD SPECIMENOrdering Facility: [facility] Address: [address] [place] [address] Result Comment: Janeen mated Glomerular Filtration Rate (eGFR) is calculated using the 2020 CKD-EPI creatinine equation. This equation utilizes serum creatinine, sex, and age as parameters. The creatinine assay has traceable calibration to isotope dilution-mass spectrometry. Refer to KDIGO guidelines for clinical interpretation. In patients with unstable renal function, e.g. those with acute kidney injury, the eGFR may not accurately reflect actual GFR. Performed By: #### 2 4321-2 ####[facility] [id number] [place] [address] [place] Glucose [Mass/Vol] 90 mg/dL Normal 74-99 [facility] Comment on above: Order Comment: Margarito batista Type: BLOOD SPECIMENOrdering Facility: [facility] Address: [address] [place] [address] Result Comment: The [place] Diabetes Association (ADA) provides guidance for cutoff values for fasting glucose and random glucose. The ADA defines fasting as no caloric intake for at least 8 hours. Fasting plasma glucose results between 100 to 125 mg/dL indicate increased risk for diabetes (prediabetes).Fasting plasma glucose results greater than or equal to 126 mg/dL meet the criteria for diagnosis of diabetes. In the absence of unequivocal hyperglycemia, results should be confirmed by repeat testing. In a patient with classic symptoms of hyperglycemia or hyperglycemic crisis, random plasma glucose results greater than or equal to 200 mg/dL meet the criteria for diagnosis of diabetes.Reference: Standards of Medical Care in Diabetes 2016, [place] Diabetes Association. Diabetes Care. 2016.39(Suppl 1). Performed By: #### 2 4321-2 ####[facility] [id number] [place] [address] [place] Potassium [Moles/Vol] 4.2 mmol/L Normal 3.7-5.1 [facility] Comment on above: Order Comment: Speci men Type: BLOOD SPECIMENOrdering Facility: [facility] Address: [address] [place] [address] Performed By: #### 2 4321-2 ####[facility] [id number] [place] [address] [place] Sodium [Moles/Vol] 136 mmol/L Normal 136-144 [facility] Comment on above: Order Comment: Speci men Type: BLOOD SPECIMENOrdering Facility: [facility] Address: [address] [place] [address] Performed By: #### 2 4321-2 ####[facility] [id number] [place] [address] [place] Urea nitrogen [Mass/Vol] 19 mg/dL Normal 7-21 [facility] Comment on above: Order Comment: Speci men Type: BLOOD SPECIMENOrdering Facility: [facility] Address: [address] [place] [address] Performed By: #### 2 4321-2 ####[facility] [id number] [place] [address] [place] CNOVon 02-26-2024 CNOV Normal [facility] CNPNon 02-23-2024 CNPN Normal [facility] Basic metabolic 2000 panelon 02-20-2024 Anion gap [Moles/Vol] 12 mmol/L Normal 8-15 [facility] Comment on above: Order Comment: Speci men Type: BLOOD SPECIMENOrdering Facility: [facility] Address: [address] [place] [address] Performed By: #### 2 4321-2, LIPNF, 08363-6 ####[facility] LABCLIA [id number] [facility] [id number] [address] [place] Calcium [Mass/Vol] 8.9 mg/dL Normal 8.5-10.2 [facility] Comment on above: Order Comment: Speci men Type: BLOOD SPECIMENOrdering Facility: [facility] Address: [address] [place] [address] Performed By: #### 2 4321-2, LIPNF, ####[facility] LABCLIA [id number] [place] [address] [place] Chloride [Moles/Vol] 103 mmol/L Normal 98-107 [facility] Comment on above: Order Comment: Speci men Type: BLOOD SPECIMENOrdering Facility: [facility] Address: [address] [place] [address] Performed By: #### 2 4321-2, LIPNF, ####[facility] LABCLIA [id number] [place] [address] [place] CO2 [Moles/Vol] 17 mmol/L Low 22-30 [facility] Comment on above: Order Comment: Speci men Type: BLOOD SPECIMENOrdering Facility: [facility] Address: [address] [place] [address] Performed By: #### 2 4321-2, LIPNF, ####[facility] LABCLIA [id number] [place] [address] [place] Creatinine [Mass/Vol] 1.39 mg/dL High 0.58-0.96 [facility] Comment on above: Order Comment: Speci men Type: BLOOD SPECIMENOrdering Facility: [facility] Address: [address] [place] [address] Performed By: #### 2 4321-2, LIPNF, ####[facility] LABCLIA [id number] [place] [address] [place] Creatinine and Glomerular filtration rate.predicted panel (S/P/Bld) 37 mL/min/1.73m??? Low >=60 [facility] Comment on above: Order Comment: Margarito batista Type: BLOOD SPECIMENOrdering Facility: [facility] Address: [address] [place] [address] Result Comment: Janeen mated Glomerular Filtration Rate (eGFR) is calculated using the 2020 CKD-EPI creatinine equation. This equation utilizes serum creatinine, sex, and age as parameters. The creatinine assay has traceable calibration to isotope dilution-mass spectrometry. Refer to KDIGO guidelines for clinical interpretation. In patients with unstable renal function, e.g. those with acute kidney injury, the eGFR may not accurately reflect actual GFR. Performed By: #### 2 4321-2, CARLOS, 55576-8 ####[facility] LABIA [id number] [place] [address] [place] Glucose [Mass/Vol] 100 mg/dL High 74-99 [facility] Comment on above: Order Comment: Margarito batista Type: BLOOD SPECIMENOrdering Facility: [facility] Address: [address] [place] [address] Result Comment: The [place] Diabetes Association (ADA) provides guidance for cutoff values for fasting glucose and random glucose. The ADA defines fasting as no caloric intake for at least 8 hours. Fasting plasma glucose results between 100 to 125 mg/dL indicate increased risk for diabetes (prediabetes).Fasting plasma glucose results greater than or equal to 126 mg/dL meet the criteria for diagnosis of diabetes. In the absence of unequivocal hyperglycemia, results should be confirmed by repeat testing. In a patient with classic symptoms of hyperglycemia or hyperglycemic crisis, random plasma glucose results greater than or equal to 200 mg/dL meet the criteria for diagnosis of diabetes.Reference: Standards of Medical Care in Diabetes 2016, [place] Diabetes Association. Diabetes Care. 2016.39(Suppl 1). Performed By: #### 2 4321-2, CARLOS, 91190-1 ####[facility] [id number] [place] [address] [place] Potassium [Moles/Vol] 4.4 mmol/L Normal 3.7-5.1 [facility] Comment on above: Order Comment: Margarito batista Type: BLOOD SPECIMENOrdering Facility: [facility] Address: [address] [place] [address] Performed By: #### 2 4321-2, LIPNF, ####[facility] LABCLIA [id number] [place] [id number] [place] Sodium [Moles/Vol] 132 mmol/L Low 136-144 [facility] Comment on above: Order Comment: Speci men Type: BLOOD SPECIMENOrdering Facility: [facility] Address: [address] [place] [address] Performed By: #### 2 4321-2, LIPNF, ####[facility] LABIA [id number] [place] [address] [place] Urea nitrogen [Mass/Vol] 29 mg/dL High 7-21 [facility] Comment on above: Order Comment: Speci men Type: BLOOD SPECIMENOrdering Facility: [facility] Address: [address] [place] [address] Performed By: #### 2 4321-2, LIPNF, ####[facility] LABIA [id number] [place] [address] [place] CNOVon 02-20-2024 CNOV Normal [facility] CNPNon 02-20-2024 CNPN Normal [facility] HbA1c (Bld)on 02-20-2024 Average glucose Estimated from glycated hemoglobin (Bld) [Mass/Vol] 108 mg/dL Normal [facility] Comment on above: Order Comment: Speci men Type: BLOOD SPECIMENOrdering Facility: [facility] Address: [address] [place] [address] Result Comment: eAG: (Estimated average glucose) is a calculated value from HgbA1c and is exhibit display representative of the average blood glucose level in the last 2-3 month period. Performed By: #### 5 5454-3 ####[facility] LABCLIA [id number] [address] [id number] [address] [place] HbA1c (Bld) [Mass fraction] 5.4 % Normal 4.3-5.6 [facility] Comment on above: Order Comment: Margarito batista Type: BLOOD SPECIMENOrdering Facility: [facility] Address: [address] [place] [address] Result Comment: Sharad ican Diabetes Association guidelines indicate that patients with HgbA1c in the range 5.7-6.4% are at increased risk for development of diabetes, and intervention by lifestyle modification may be beneficial. HgbA1c greater or equal to 6.5% is considered diagnostic of diabetes. Performed By: #### 5 5454-3 ####[facility] LABCLIA [id number] [address] OF [facility] LIPID PANEL, NONFASTINGon Cholesterol [Mass/Vol] 146 mg/dL Normal <200 [facility] Comment on above: Order Comment: Margarito batista Type: BLOOD SPECIMENOrdering Facility: [facility] Address: [address] [place] [address] Result Comment: <200 mg/dL, Desirable 200-239 mg/dL, Borderline high>239 mg/dL, High Performed By: #### 2 4321-2, LIPCORETTA, ####[facility] LABCLIA [id number] [place] [address] [place] HDL CHOLESTEROL, NF 51 mg/dL Normal >39 [facility] Comment on above: Order Comment: Margarito batista Type: BLOOD SPECIMENOrdering Facility: [facility] Address: [address] [place] [address] Result Comment: 40-5 9 mg/dL, Acceptable>59 mg/dL, High: Negative risk factor for coronary heart disease<40 mg/dL, Low: Positive risk factor for coronary heart disease Performed By: #### 2 4321-2, LIPNF, ####[facility] LABCLIA [id number] [place] [address] [place] LDL CHOLESTEROL, NF 76 mg/dL Normal <100 [facility] Comment on above: Order Comment: Margarito batista Type: BLOOD SPECIMENOrdering Facility: [facility] Address: [address] [place] [address] Result Comment: <100 mg/dL, Optimal 100-129 mg/dL, Near optimal/above optimal 130-159 mg/dL, Borderline high 160-189 mg/dL, High>189 mg/dL, Very highSecondary prevention optimal LDL Cholesterol levels are recommended to be < 70 mg/dL Performed By: #### 2 4321-2, LIPNF, ####[facility] LABCLIA [id number] [place] [address] [place] LDL/HDL RATIO, NF 1.49 mg/dL Normal <2.54 [facility] Comment on above: Order Comment: Margarito batista Type: BLOOD SPECIMENOrdering Facility: [facility] Address: [address] [place] [address] Result Comment: Irene march:1. National Cholesterol Education Program ATP III Guideline At-A-Glance Quick Desk Reference: National Heart, Lung, and Blood [place]. National Institutes of Health. 2001: NIH Publication No. 01-3305.2. An International Atherosclerosis Society position paper: global recommendations for the management of dyslipidemia: executive summary, Atherosclerosis. 2014: 232(2):410-413. Performed By: #### 2 4321-2, LIPNF, ####[facility] LABIA [id number] [place] [address] [place] NON HDL CHOL, NF 95 mg/dL Normal <130 [facility] Comment on above: Order Comment: Margarito lynne Type: BLOOD SPECIMENOrdering Facility: [facility] Address: [address] [place] [address] Result Comment: <130 mg/dL, Optimal 130-159 mg/dL, Near optimal/above optimal 160-189 mg/dL, Borderline high 190-219 mg/dL, High>219 mg/dL, Very highSecondary prevention optimal non HDL Cholesterol levels are recommended to be <100 mg/dL Performed By: #### 2 4321-2, LIPNF, ####[facility] LABCLIA [id number] [place] [address] [place] T CHOL/HDL RATIO NF 2.86 mg/dL Normal <5.10 [facility] Comment on above: Order Comment: Speci men Type: BLOOD SPECIMENOrdering Facility: [facility] Address: [address] [place] [address] Performed By: #### 2 4321-2, LIPNF, ####[facility] LABCLIA [id number] [place] [address] [place] TRIGLYCERIDES, NF 96 mg/dL Normal <150 [facility] Comment on above: Order Comment: Speci men Type: BLOOD SPECIMENOrdering Facility: [facility] Address: [address] [place] [address] Result Comment: <150 mg/dL, Normal 150-199 mg/dL, Borderline high 200-499 mg/dL, High>499 mg/dL, Very high Performed By: #### 2 4321-2, LIPNF, ####[facility] LABIA [id number] [place] [address] [place] VLDL CHOLESTEROL, NF 19 mg/dL Normal <30 [facility] Comment on above: Order Comment: Speci men Type: BLOOD SPECIMENOrdering Facility: [facility] Address: [address] [place] [address] Performed By: #### 2 4321-2, LIPNF, ####[facility] LABIA [id number] [place] [address] [place] Magnesium SerPl-mCncon 02-19 Magnesium [Mass/Vol] 1.7 mg/dL Normal 1.7-2.3 [facility] Comment on above: Order Comment: Speci men Type: BLOOD SPECIMENOrdering Facility: [facility] Address: [address] [place] [address] Performed By: #### 2 4321-2, LIPNF, 11661-5 ####[facility] LABCLIA [id number] [place] [address] [place] Urinalysis complete panel (U )on 02-20-2024 Bacteria LM.HPF (Urine sed) [#/Area] Negative Normal Negative [facility] Comment on above: Order Comment: Speci men Type: URINE SPECIMENOrdering Facility: [facility] Address: [address] [place] [address] Performed By: #### 2 4356-8 ####[facility] LABCLIA [id number] [place] [address] [place] Bilirubin Ql (U) Negative Normal Negative [facility] Comment on above: Order Comment: Speci men Type: URINE SPECIMENOrdering Facility: [facility] Address: [address] [place] [address] Performed By: #### 2 4356-8 ####[facility] LABCLIA [id number] [place] [address] [place] Clarity (Unsp spec) Clear Normal Clear [facility] Comment on above: Order Comment: Speci men Type: URINE SPECIMENOrdering Facility: [facility] Address: [address] [place] [address] Performed By: #### 2 4356-8 ####[facility] LABCLIA [id number] [place] [address] [place] Color (U) Yellow Normal Yellow [facility] Comment on above: Order Comment: Speci men Type: URINE SPECIMENOrdering Facility: [facility] Address: [address] [place] [address] Performed By: #### 2 4356-8 ####[facility] LABCLIA [id number] [place] [address] [place] Epithelial cells LM.HPF (Urine sed) [#/Area] Few Normal [facility] Comment on above: Order Comment: Speci men Type: URINE SPECIMENOrdering Facility: [facility] Address: [address] [place] [address] Performed By: #### 2 4356-8 ####[facility] LABCLIA [id number] [place] [address] [place] Glucose Test strip (U) [Mass/Vol] Negative Normal Negative [facility] Comment on above: Order Comment: Speci men Type: URINE SPECIMENOrdering Facility: [facility] Address: [address] [place] [address] Performed By: #### 2 4356-8 ####[facility] LABCLIA [id number] [place] [address] [place] Hemoglobin Ql (U) Negative Normal Negative [facility] Comment on above: Order Comment: Speci men Type: URINE SPECIMENOrdering Facility: [facility] Address: [address] [place] [address] Performed By: #### 2 4356-8 ####[facility] LABCLIA [id number] [place] [address] [place] Hyaline casts (Urine sed) [#/Area] 0 /[LPF] Normal 0 /LPF [facility] Comment on above: Order Comment: Speci men Type: URINE SPECIMENOrdering Facility: [facility] Address: [address] [place] [address] Performed By: #### 2 4356-8 ####[facility] LABCLIA [id number] [place] [address] [place] Ketones Ql (U) Trace Abnormal Negative [facility] Comment on above: Order Comment: Speci men Type: URINE SPECIMENOrdering Facility: [facility] Address: [address] [place] [address] Performed By: #### 2 4356-8 ####[facility] LABCLIA [id number] [place] [address] [place] Leukocyte esterase Test strip Ql (U) Negative Normal Negative [facility] Comment on above: Order Comment: Speci men Type: URINE SPECIMENOrdering Facility: [facility] Address: [address] [place] [address] Performed By: #### 2 4356-8 ####[facility] LABCLIA [id number] [place] [address] [place] Nitrite Ql (U) Negative Normal Negative [facility] Comment on above: Order Comment: Speci men Type: URINE SPECIMENOrdering Facility: [facility] Address: [address] [place] [address] Performed By: #### 2 4356-8 ####[facility] LABCLIA [id number] [place] [address] [place] pH (U) 5.5 [pH] Normal <8.5 [facility] Comment on above: Order Comment: Speci men Type: URINE SPECIMENOrdering Facility: [facility] Address: [address] [place] [address] Performed By: #### 2 4356-8 ####[facility] LABCLIA [id number] [place] [address] [place] Protein (U) [Mass/Vol] Trace Abnormal Negative Cl [facility] Comment on above: Order Comment: Speci men Type: URINE SPECIMENOrdering Facility: [facility] Address: [address] [place] [address] Performed By: #### 2 4356-8 ####[facility] LABCLIA [id number] [place] [address] [place] RBC LM.HPF (Urine sed) [#/Area] 0-2 /HPF Normal 0-2 /HPF [facility] Comment on above: Order Comment: Speci men Type: URINE SPECIMENOrdering Facility: [facility] Address: [address] [place] [address] Performed By: #### 2 4356-8 ####[facility] LABIA [id number] [place] [address] [place] Specific gravity (U) [Rel density] 1.032 High 1.005-1.030 [facility] Comment on above: Order Comment: Speci men Type: URINE SPECIMENOrdering Facility: [facility] Address: [address] [place] [address] Performed By: #### 2 4356-8 ####[facility]ITAL[facility] [id number] [place] [address] [place] Urobilinogen Ql (U) 0.2 EU/dL Normal 0.2-1.0 EU/dL [facility] Comment on above: Order Comment: Speci men Type: URINE SPECIMENOrdering Facility: [facility] Address: [address] [place] [address] Performed By: #### 2 4356-8 ####[facility] H[facility]ITALIA [id number] [place] [address] [place] WBC LM.HPF (Urine sed) [#/Area] 0-5 /HPF Normal 0-5 /HPF [facility] Comment on above: Order Comment: Speci men Type: URINE SPECIMENOrdering Facility: [facility] Address: [address] [place] [address] Performed By: #### 2 4356-8 ####[facility] [id number] [place] [address] [place] CNPNon 02-19-2024 CNPN Normal [facility] CNPNon 02-18-2024 CNPN Normal [facility] CNPNon 02-17-2024 CNPN Normal [facility] CNPTOUTREACHon 02-17-2024 CNPTOUTREACH Normal [facility] CORTISOL SERUMon 02-17-2024 CORTISOL 3.40 ug/dL Low 3.44-22.45 [facility] Comment on above: Order Comment: B Result Comment: Adul t (AM) 5.27 - 22.45 ug/dL Adult (PM) 3.44 - 16.76 ug/dL Performed By: #### L 509.6000 #### [facility] [address] [place], [address] Basic Metabolic Profile (BMP )on 02-16-2024 BUN/CRE 17.5 RATIO Normal 10-20 [facility] Comment on above: Performed By: #### L 500.2500 #### [facility] [address] [place], [address] CA,Total 8.9 mg/dL Normal 8.5-10.1 [facility] Comment on above: Performed By: #### L 500.2500 #### [facility] [address] [place], [address] Chloride [Moles/Vol] 95 mmol/L Low 98-107 [facility] Comment on above: Performed By: #### L 500.2500 #### [facility] [address] [place], [address] CO2 [Moles/Vol] 23.0 mmol/L Normal 21.0-32.0 [facility] Comment on above: Performed By: #### L 500.2500 #### [facility] [address] [place], [address] Creatinine [Mass/Vol] 1.14 mg/dL High 0.55-1.02 [facility] Comment on above: Result Comment: The validity of the calculated GFR GFRAA in patients over 70 years has not been determined. Clinical correlation is essential. Performed By: #### L 500.2500 #### [facility] [address] [place], [address] ECRCL 36.71 ml/min Normal [facility] Comment on above: Performed By: #### L 500.2500 #### [facility] [address] [place], [address] EST GFR - AA 58 mL/min Low >60 [facility] Comment on above: Result Comment: Afri can [place] GFR Calc Performed By: #### L 500.2500 #### [facility] [address] [place], [address] GAP 7 Normal 5-15 [facility] Comment on above: Performed By: #### L 500.2500 #### [facility] [address] [place], [address] GFR/1.73 sq M.predicted among non-blacks MDRD (S/P/Bld) [Vol rate/Area] 48 mL/min/{1.73_m2} Low >60 [facility] Comment on above: Result Comment: Non- GFR Calc Performed By: #### L 500.2500 #### [facility] [address] [place], [address] Glucose [Mass/Vol] 109 mg/dL High 74-106 [facility] Comment on above: Result Comment: Fast ing Glucose result from 100 to 125 mg/dL suggests IMPAIRED HOMEOSTASIS per A.D.A. criteria. Performed By: #### L 500.2500 #### [facility] [address] [place], [address] Potassium [Moles/Vol] 4.3 mmol/L Normal 3.5-5.1 [facility] Comment on above: Performed By: #### L 500.2500 #### [facility] [address] [place], [address] Sodium [Moles/Vol] 125 mmol/L Low 136-145 [facility] Comment on above: Performed By: #### L 500.2500 #### [facility] [address] [place], [address] Urea nitrogen [Mass/Vol] 20 mg/dL High 7-18 [facility] Comment on above: Performed By: #### L 500.2500 #### [facility] [address] [place], [address] Basic Metabolic Profile (BMP )on 02-15-2024 BUN/CRE 15.8 RATIO Normal 10-20 [facility] Comment on above: Performed By: #### L 500.2500, L100.0500 #### [facility] [address] [place], [address] CA,Total 8.3 mg/dL Low 8.5-10.1 [facility] Comment on above: Performed By: #### L 500.2500, L100.0500 #### [facility] [address] [place], [address] Chloride [Moles/Vol] 91 mmol/L Low 98-107 [facility] Comment on above: Performed By: #### L 500.2500, L100.0500 #### [facility] [address] [place], [address] CO2 [Moles/Vol] 24.0 mmol/L Normal 21.0-32.0 [facility] Comment on above: Performed By: #### L 500.2500, L100.0500 #### [facility] [address] [place], [address] Creatinine [Mass/Vol] 1.01 mg/dL Normal 0.55-1.02 [facility] Comment on above: Result Comment: The validity of the calculated GFR GFRAA in patients over 70 years has not been determined. Clinical correlation is essential. Performed By: #### L 500.2500, L100.0500 #### [facility] [address] [place], [address] ECRCL 41.43 ml/min Normal [facility] Comment on above: Performed By: #### L 500.2500, L100.0500 #### [facility] [address] [place], [address] EST GFR - AA 67 mL/min Normal >60 [facility] Comment on above: Result Comment: Afri can Liberian GFR Calc Performed By: #### L 500.2500, L100.0500 #### [facility] [address] [place], [address] GAP 8 Normal 5-15 [facility] Comment on above: Performed By: #### L 500.2500, L100.0500 #### [facility] [address] [place], [address] GFR/1.73 sq M.predicted among non-blacks MDRD (S/P/Bld) [Vol rate/Area] 56 mL/min/{1.73_m2} Low >60 [facility] Comment on above: Result Comment: Non- GFR Calc Performed By: #### L 500.2500, L100.0500 #### [facility] [address] [place], [address] Glucose [Mass/Vol] 108 mg/dL High 74-106 [facility] Comment on above: Result Comment: Fast ing Glucose result from 100 to 125 mg/dL suggests IMPAIRED HOMEOSTASIS per A.D.A. criteria. Performed By: #### L 500.2500, L100.0500 #### [facility] [address] [place], [address] Potassium [Moles/Vol] 4.0 mmol/L Normal 3.5-5.1 [facility] Comment on above: Performed By: #### L 500.2500, L100.0500 #### [facility] [address] [place], [address] Sodium [Moles/Vol] 123 mmol/L Low 136-145 [facility] Comment on above: Performed By: #### L 500.2500, L100.0500 #### [facility] [address] [place], [address] Urea nitrogen [Mass/Vol] 16 mg/dL Normal 7-18 [facility] Comment on above: Performed By: #### L 500.2500, L100.0500 #### [facility] [address] [place], [address] CBC-Complete Blood Cnt No Di ffon 02-15-2024 Erythrocyte distribution width (RBC) [Ratio] 12.6 % Normal 11.6-14.6 [facility] Comment on above: Performed By: #### L 500.2500, L100.0500 #### [facility] [address] [place], [address] Hematocrit (Bld) [Volume fraction] 25.9 % Low 37-47 [facility] Comment on above: Performed By: #### L 500.2500, L100.0500 #### [facility] [address] [place], [address] Hemoglobin (Bld) [Mass/Vol] 9.2 g/dL Low 12.0-15.0 [facility] Comment on above: Performed By: #### L 500.2500, L100.0500 #### [facility] [address] [place], [address] MCH (RBC) [Entitic mass] 32.5 pg High 27.0-32.0 [facility] Comment on above: Performed By: #### L 500.2500, L100.0500 #### [facility] [address] [place], [address] MCHC (RBC) [Mass/Vol] 35.5 g/dL Normal 32-36 [facility] Comment on above: Performed By: #### L 500.2500, L100.0500 #### [facility] [address] [place], [address] MCV (RBC) [Entitic vol] 91.5 fL Normal 81-99 [facility] Comment on above: Performed By: #### L 500.2500, L100.0500 #### [facility] [address] [place], [address] Platelet mean volume (Bld) [Entitic vol] 9.2 fL Normal 6.2-12.0 [facility] Comment on above: Performed By: #### L 500.2500, L100.0500 #### [facility] [address] [place], [address] Platelets (Bld) [#/Vol] 205 10*3/uL Normal 150-450 [facility] Comment on above: Performed By: #### L 500.2500, L100.0500 #### [facility] [address] [place], [address] RBC (Bld) [#/Vol] 2.83 10*6/uL Low 4.2-5.4 [facility] Comment on above: Performed By: #### L 500.2500, L100.0500 #### [facility] [address] [place], [address] RDW SD 42.5 fl Normal 35.1-43.9 [facility] Comment on above: Performed By: #### L 500.2500, L100.0500 #### [facility] [address] [place], [address] WBC (Bld) [#/Vol] 6.9 10*3/uL Normal 4.4-11.0 [facility] Comment on above: Performed By: #### L 500.2500, L100.0500 #### [facility] [address] [place], [address] Osmolality, Urineon 02-15-20 24 OSMOLALITY,UR 261 mOsm/KG Normal [facility] Comment on above: Result Comment: Normal Urine Reference Ranges Random: 50 - 1200 mOsm/kg H20 depending on fluid intake Random: >850 mOsm/kg after 12 hour fluid restriction 24 hour: 300 - 900 mOsm/kg H2O Performed By: #### L 509.6000 #### [facility] [address] [place], [address] Sodium Levelon 02-15-2024 Sodium [Moles/Vol] 123 mmol/L Low 136-145 [facility] Comment on above: Performed By: #### L 501.5300 #### [facility] [address] [place], [address] Urinalysis, Completeon 02-14 EPI,SQUAMOUS 5-10 SEEN Normal 5-10 [facility] Comment on above: Order Comment: CLEAN CATCH Performed By: #### L 400.0001 #### [facility] [address] [place], [address] WBC 0-5 SEEN Normal 0-5 [facility] Comment on above: Order Comment: CLEAN CATCH Performed By: #### L 400.0001 #### [facility] [address] [place], [address] BACTERIA 0 SEEN Normal None Seen [facility] Comment on above: Order Comment: CLEAN CATCH Performed By: #### L 400.0001 #### [facility] [address] [place], [address] Mucus Ql (Urine sed) 0 SEEN Normal [facility] Comment on above: Order Comment: CLEAN CATCH Performed By: #### L 400.0001 #### [facility] [address] [place], [address] RBC 0 SEEN Normal 0-5 [facility] Comment on above: Order Comment: CLEAN CATCH Performed By: #### L 400.0001 #### [facility] [address] [place], [address] Urine Sodiumon 02-15-2024 Sodium (U) [Moles/Vol] 23 mmol/L Normal Not Establ. [facility] Comment on above: Performed By: #### L 509.6000 #### [facility] [address] [place], [address] CNPNon 02-14-2024 CNPN Normal [facility] ilon 02-14-2024 Albumin [Mass/Vol] 2.7 g/dL Low 3.2-5.0 [facility] Comment on above: Performed By: #### L 509.6000 #### [facility] [address] [place], [address] Albumin/Globulin [Mass ratio] 0.9 {ratio} Normal 0.9-2.4 [facility] Comment on above: Performed By: #### L 509.6000 #### [facility] [address] [place], [address] ALK P 54 U/L Normal 45-117 [facility] Comment on above: Performed By: #### L 509.6000 #### [facility] [address] [place], [address] ALT [Catalytic activity/Vol] 18 U/L Normal 13-56 [facility] Comment on above: Performed By: #### L 509.6000 #### [facility] [address] [place], [address] AST [Catalytic activity/Vol] 18 U/L Normal 15-37 [facility] Comment on above: Performed By: #### L 509.6000 #### [facility] [address] [place], [address] Bilirubin [Mass/Vol] 0.50 mg/dL Normal 0.20-1.00 [facility] Comment on above: Result Comment: For patients on eltrombopag therapy, use of Dimension [place] TBIL is not recommended. Performed By: #### L 509.6000 #### [facility] [address] [place], [address] BUN/CRE 13.0 RATIO Normal 10-20 [facility] Comment on above: Performed By: #### L 509.6000 #### [facility] [address] [place], [address] CA,Total 8.3 mg/dL Low 8.5-10.1 [facility] Comment on above: Performed By: #### L 509.6000 #### [facility] [address] [place], [address] Chloride [Moles/Vol] 92 mmol/L Low 98-107 [facility] Comment on above: Performed By: #### L 509.6000 #### [facility] [address] [place], [address] CO2 [Moles/Vol] 23.0 mmol/L Normal 21.0-32.0 [facility] Comment on above: Performed By: #### L 509.6000 #### [facility] [address] [place], [address] Creatinine [Mass/Vol] 1.23 mg/dL High 0.55-1.02 [facility] Comment on above: Result Comment: The validity of the calculated GFR GFRAA in patients over 70 years has not been determined. Clinical correlation is essential. Performed By: #### L 509.6000 #### [facility] [address] [place], [address] ECRCL 34.02 ml/min Normal [facility] Comment on above: Performed By: #### L 509.6000 #### [facility] [address] [place], [address] EST GFR - AA 54 mL/min Low >60 [facility] Comment on above: Result Comment: Afri can Liberian GFR Calc Performed By: #### L 509.6000 #### [facility] [address] [place], [address] GAP 10 Normal 5-15 [facility] Comment on above: Performed By: #### L 509.6000 #### [facility] [address] [place], [address] GFR/1.73 sq M.predicted among non-blacks MDRD (S/P/Bld) [Vol rate/Area] 44 mL/min/{1.73_m2} Low >60 [facility] Comment on above: Result Comment: Non- GFR Calc Performed By: #### L 509.6000 #### [facility] [address] [place], [address] Globulin (S) [Mass/Vol] 3.1 g/dL Normal 2.2-4.2 [facility] Comment on above: Performed By: #### L 509.6000 #### [facility] [address] [place], [address] Glucose [Mass/Vol] 142 mg/dL High 74-106 [facility] Comment on above: Result Comment: Fast ing Glucose result greater than or equal to 126 mg/dL suggests DIABETES MELLITUS per A.D.A. criteria. Performed By: #### L 509.6000 #### [facility] [address] [place], [address] Potassium [Moles/Vol] 3.5 mmol/L Normal 3.5-5.1 [facility] Comment on above: Performed By: #### L 509.6000 #### [facility] [address] [place], [address] Sodium [Moles/Vol] 125 mmol/L Low 136-145 [facility] Comment on above: Performed By: #### L 509.6000 #### [facility] [address] [place], [address] T PROT 5.8 g/dL Low 6.4-8.2 [facility] Comment on above: Performed By: #### L 509.6000 #### [facility] [address] [place], [address] Urea nitrogen [Mass/Vol] 16 mg/dL Normal 7-18 [facility] Comment on above: Performed By: #### L 509.6000 #### [facility] [address] [place], [address] Magnesiumon 02-14-2024 Magnesium [Mass/Vol] 1.7 mg/dL Normal 1.6-2.6 [facility] Comment on above: Performed By: #### L 509.6000 #### [facility] [address] [place], [address] Osmolality, Serumon 02-14-20 24 OSMOLALITY,SER 261 mOsm/KG Low 280-301 [facility] Comment on above: Performed By: #### L 501.7300 #### [facility] [address] [place], [address] Phosphoruson 02-14-2024 Phosphate [Mass/Vol] 2.8 mg/dL Normal 2.5-4.9 [facility] Comment on above: Performed By: #### L 509.6000 #### [facility] [address] [place], [address] Thyroid Stim Hormone (TSH)on 02-14-2024 TSH 3.220 uIU/mL Normal 0.358-3.740 [facility] Comment on above: Performed By: #### L 509.6000 #### [facility] [address] [place], [address] Uric Acidon 02-14-2024 URIC 4.0 mg/dL Normal 2.6-6.0 [facility] Comment on above: Result Comment: The drugs N-Acetylcysteine and Metamizole may falsely depress this assay. Performed By: #### L 509.6000 #### [facility] [address] [place], [address] Basic Metabolic Profile (BMP )on 02-13-2024 BUN/CRE 12.2 RATIO Normal 10-20 [facility] Comment on above: Performed By: #### L 100.0100, L500.2500 #### [facility] [address] [place], [address] CA,Total 8.8 mg/dL Normal 8.5-10.1 [facility] Comment on above: Performed By: #### L 100.0100, L500.2500 #### [facility] [address] [place], [address] Chloride [Moles/Vol] 93 mmol/L Low 98-107 [facility] Comment on above: Performed By: #### L 100.0100, L500.2500 #### [facility] [address] [place], [address] CO2 [Moles/Vol] 26.0 mmol/L Normal 21.0-32.0 [facility] Comment on above: Performed By: #### L 100.0100, L500.2500 #### [facility] [address] [place], [address] Creatinine [Mass/Vol] 1.39 mg/dL High 0.55-1.02 [facility] Comment on above: Result Comment: The validity of the calculated GFR GFRAA in patients over 70 years has not been determined. Clinical correlation is essential. Performed By: #### L 100.0100, L500.2500 #### [facility] [address] [place], [address] EST GFR - AA 46 mL/min Low >60 [facility] Comment on above: Result Comment: Afri can Liberian GFR Calc Performed By: #### L 100.0100, L500.2500 #### [facility] [address] [place], [address] GAP 8 Normal 5-15 [facility] Comment on above: Performed By: #### L 100.0100, L500.2500 #### [facility] [address] [place], [address] GFR/1.73 sq M.predicted among non-blacks MDRD (S/P/Bld) [Vol rate/Area] 38 mL/min/{1.73_m2} Low >60 [facility] Comment on above: Result Comment: Non- GFR Calc Performed By: #### L 100.0100, L500.2500 #### [facility] [address] [place], [address] Glucose [Mass/Vol] 90 mg/dL Normal 74-106 [facility] Comment on above: Performed By: #### L 100.0100, L500.2500 #### [facility] [address] [place], [address] Potassium [Moles/Vol] 3.7 mmol/L Normal 3.5-5.1 [facility] Comment on above: Performed By: #### L 100.0100, L500.2500 #### [facility] [address] [place], [address] Sodium [Moles/Vol] 127 mmol/L Low 136-145 [facility] Comment on above: Performed By: #### L 100.0100, L500.2500 #### [facility] [address] [place], [address] Urea nitrogen [Mass/Vol] 17 mg/dL Normal 7-18 [facility] Comment on above: Performed By: #### L 100.0100, L500.2500 #### [facility] [address] [place], [address] CBC W/Diff, Automatedon 09-0 5-2023 Absolute Lymph 1.09 X10 3/uL Normal 0.83-4.51 [facility] Comment on above: Performed By: #### L 100.0100, L500.2500 #### [facility] [address] [place], [address] Absolute Neut 9.2 X10 3/uL High 2.0-7.7 [facility] Comment on above: Performed By: #### L 100.0100, L500.2500 #### [facility] [address] [place], [address] Basophils/100 WBC (Bld) 0.3 % Normal 0-1 [facility] Comment on above: Performed By: #### L 100.0100, L500.2500 #### [facility] [address] [place], [address] Eosinophils/100 WBC (Bld) 0.3 % Normal 0-5 [facility] Comment on above: Performed By: #### L 100.0100, L500.2500 #### [facility] [address] [place], [address] Erythrocyte distribution width (RBC) [Ratio] 13.0 % Normal 11.6-14.6 [facility] Comment on above: Performed By: #### L 100.0100, L500.2500 #### [facility] [address] [place], [address] Hematocrit (Bld) [Volume fraction] 32.7 % Low 37-47 [facility] Comment on above: Performed By: #### L 100.0100, L500.2500 #### [facility] [address] [place], [address] Hemoglobin (Bld) [Mass/Vol] 11.8 g/dL Low 12.0-15.0 [facility] Comment on above: Performed By: #### L 100.0100, L500.2500 #### [facility] [address] [place], [address] IG% 0.800 Normal 0.0-0.9 [facility] Comment on above: Result Comment: IG% - Immature Granulocytes (promyelocytes, myelocytes and metamyelocytes) > 1% indicates that a LEFT SHIFT is Present. Performed By: #### L 100.0100, L500.2500 #### [facility] [address] [place], [address] Lymphocytes/100 WBC (Bld) 9.4 % Low 19-41 [facility] Comment on above: Performed By: #### L 100.0100, L500.2500 #### [facility] [address] [place], [address] MCH (RBC) [Entitic mass] 33.4 pg High 27.0-32.0 [facility] Comment on above: Performed By: #### L 100.0100, L500.2500 #### [facility] [address] [place], [address] MCHC (RBC) [Mass/Vol] 36.1 g/dL High 32-36 [facility] Comment on above: Performed By: #### L 100.0100, L500.2500 #### [facility] [address] [place], [address] MCV (RBC) [Entitic vol] 92.6 fL Normal 81-99 [facility] Comment on above: Performed By: #### L 100.0100, L500.2500 #### [facility] [address] [place], [address] Monocytes/100 WBC (Bld) 10.0 % Normal 0-10 [facility] Comment on above: Performed By: #### L 100.0100, L500.2500 #### [facility] [address] [place], [address] Neutrophils/100 WBC (Bld) 79.2 % High 47-70 [facility] Comment on above: Performed By: #### L 100.0100, L500.2500 #### [facility] [address] [place], [address] Nucleated RBC (Bld) [#/Vol] 0 10*3/uL Normal 0-5 [facility] Comment on above: Performed By: #### L 100.0100, L500.2500 #### [facility] [address] [place], [address] Platelet mean volume (Bld) [Entitic vol] 9.5 fL Normal 6.2-12.0 [facility] Comment on above: Performed By: #### L 100.0100, L500.2500 #### [facility] [address] [place], [address] Platelets (Bld) [#/Vol] 281 10*3/uL Normal 150-450 [facility] Comment on above: Performed By: #### L 100.0100, L500.2500 #### [facility] [address] [place], [address] RBC (Bld) [#/Vol] 3.53 10*6/uL Low 4.2-5.4 [facility] Comment on above: Performed By: #### L 100.0100, L500.2500 #### [facility] [address], [address] RDW SD 44.0 fl High 35.1-43.9 [facility] Comment on above: Performed By: #### L 100.0100, L500.2500 #### [facility] [address] [place], [address] WBC (Bld) [#/Vol] 11.6 10*3/uL High 4.4-11.0 [facility] Comment on above: Performed By: #### L 100.0100, L500.2500 #### [facility] [address] [place], [address] Elbow min 3 Viewson 02-13-20 24 Elbow min 3 Views [facility] Imaging Services [address] [place] [address] Elbow min 3 Views MR#: [id number] Acct: [id number] Name: LEONOR PAL Rep #: [id number] : 1940 F 83 From: Edward cox MD PCP: Dr. Chencho Urbina MD Status: REG ER Study: Elbow min 3 Views Date of Exam: 02/13/24 Exam# [id number] Ordering Dr: Isis Mancini DO [id number] STUDY: X-RAY - RIGHT ELBOW REASON FOR EXAM: Female, 83 years old. Pain, trauma TECHNIQUE: 3 view(s) of the elbow. COMPARISON: None. FINDINGS: Normal visualized humerus, radius and ulna. Normal radiocapitellar and ulnotrochlear articulations. The soft tissue structures are unremarkable. RAD/Elbow min 3 Views IMPRESSION: Normal x-ray examination of the elbow. Electronically Signed: Edward Strickland MD at 10:50 EDT , CC: Dr. Isis Mancini DO; Dr. Chencho Urbina MD Decision Science Analyst: Signed Normal [facility] Emergency Department Summary on 02-13-2024 Emergency Department Summary [facility] Medical Records Department [address] [place] [address] Emergency Department Summary 02/13/24 MR#: [id number] Acct: [id number] Name: LEONOR PAL Rep #: [id number] : 1940 83 From: Isis Mancini DO PCP: Dr. Chencho Urbina MD Status:ADM IN Location: [address] History of Present Illness Chief Complaint: Fall Informant: patient Narrative Narrative: Patient is an 83-year-old female with history of sciatica on the right side, hypertension, colon cancer status post right hemicolectomy, CKD 3 and hyperlipidemia presenting with right hip pain after a fall. Patient states she was walking across the room and trying to meat pickler some pants when she lost her balance and fell. She landed on her right side. She subsequently had right hip pain. EMS was called and she was brought to the emergency room. She denies any associate numbness or tingling. She states she has some chronic sciatica on the right side but this feels different. She did not hit her head. She denies a loss of conscious. She does take an 81 mg aspirin daily. She reports a chronic cough with no acute change. Denies any other complaints at this time and states she was in her normal state of health before this injury today. [facility] Medical History Wears dentures Wears glasses Post-menopausal Cancer History of steroid therapy Arthritis Back pain Hypertension Gastric reflux Non-smoker Shortness of breath on exertion History of pain when walking History of edema History of echocardiogram History of stress test Cardiology follow-up encounter Hx of vaginal delivery Sciatica Nonrheumatic mitral (valve) insufficiency Right bundle branch block (RBBB) Hyperlipidemia Chronic kidney disease, stage 3 Iron deficiency anemia Intestinal disaccharidase deficiencies and disaccharide malabsorption Hiatal hernia Diverticulitis Colon cancer ( 2008) Essential (primary) hypertension GERD (gastroesophageal reflux disease) Home Medications ???Medication ???Instructions ???Recorded ???Last Taken ???Type lisinopril 20 mg tablet 20 mg PO DAILY blood pressure #90 04/09/19 01/30/20 12:00 Rx tabs 1 meclizine 12.5 mg tablet 12.5 mg PO BID-TID vertigo 04/09/19 01/31/20 08:00 History 1 lfrcnzqc-jpgp-abmi 8 mg-folic 400 1 tab PO DAILY supplement 04/09/19 01/31/20 08:00 History mcg-K 50 mcg-lutein 300 mcg tablet (Centrum Silver Women) hydrochlorothiazide 25 mg tablet 25 mg PO DAILY blood pressure 01/15/21 Unknown History carvedilol 12.5 mg tablet 25 mg PO DAILY heart 06/30/21 07/25/21 05:00 History aspirin 81 mg chewable tablet 1 tab PO DAILY heart health 02/13/24 Unknown History (Aspirin Childrens) citalopram 20 mg tablet 20 mg PO DAILY depression 02/13/24 Unknown History omeprazole 40 mg capsule,delayed 40 mg PO DAILY gerd 02/13/24 Unknown History release Allergy/AdvReac Type Severity Reaction Status Date / Time Penicillins Allergy Intermediate swelling Verified 02/13/24 09:42 joints rofecoxib (From Vioxx) Allergy mouth sores Verified 02/13/24 09:42 Family History Father Myocardial infarction, Onset Age: 48 from an AL age 48 Brother CVA (cerebral vascular accident) Mother CVA (cerebral vascular accident) Other CAD (coronary artery disease) Cancer Surgical History History of colonoscopy ( 2016) History of left heart catheterization (07/30/18) Hx of cholecystectomy H/O right hemicolectomy Social History Smoking Status: Never smoker ROS ROS ED Constitutional Constitutional ED: Denies chills or fever(s) Cardiovascular Cardiovascular: Denies chest pain Respiratory/Chest Respiratory/Chest: Reports cough Gastrointestinal Gastrointestinal: Denies nausea or vomiting Musculoskeletal Musculoskeletal: Reports other Details: Right hip pain, right elbow pain Integumentary Reports Abrasions and other Hematologic/Lymphatic Hematologic/Lymphatic: Reports easy bruising; Denies easy bleeding EXAM Physical Exam Const Vital Signs: 02/13/24 09:42 02/13/24 09:45 Temperature 98.4 F Temperature Source Oral Pulse Rate 76 Respiratory Rate 16 Respiratory Depth Normal Respiratory Pattern Normal Blood Pressure 129/78 H Blood Pressure Mean 95 Pulse Ox 99 Oxygen Delivery Method Room Air Positive well nourished and well developed General Appearance ED: well developed and NAD HEENT Reports TM's clear HEENT Narrative: Dentures in place. No cephalhematoma appreciated. No signs of any facial trauma. atraumatic Tympanic Membrane ED: Yes TM's clear Eyes PE (more content not included)... Normal [facility] H AND P Exam - [facility] 02-13-2024 H&P Exam - Hospitalist [facility] Medical Records Department [address] [place] [address] H P Exam - Hospitalist 02/13/24 1133 MR#: [id number] Acct: [id number] Name: LEONOR PAL Rep #: [id number] : 1940 83 From: Ayaka Cuba DO PCP: Dr. Chencho Urbina MD Status:ADM IN Location: [id number] HPI - General General Date of Admission: 02/13/24 Date of Service: 02/13/24 Chief Complaint: Inability to walk status post mechanical fall HPI Narrative LEONOR PAL, is a 83 F who presented to the emergency department at [facility] on 02/13/2024 after sustaining a mechanical fall at home that resulted in pain with ambulation. Patient was not using her walker or an assistive device at the time of her fall. She stated she just lost her balance and fell over. She fell onto her right side and had pain in her right elbow and right pelvic region. She was able to get up independently utilizing a walker but had trouble ambulating so was brought to the emergency department. Vital signs on presentation showed a temperature of 98.4, heart rate 76, blood pressure 129/78, respiratory 16 oxygen saturation was 99% on room air. Her CBC showed a leukocytosis with a white count of 11.6, anemia with a hemoglobin of 11.8 and a left shift was present at 79.2. Her chemistry panel showed hyponatremia with a sodium of 127 (baseline previously has been in the 130s to 140s), serum creatinine was elevated 1.39 which is within her baseline. Hip and pelvic x-ray showed a nondisplaced fracture along the medial aspect of the right superior and inferior pubic ramus. Right elbow fractures showed subcutaneous edema but no bony abnormality. She lives alone at baseline and was unable to ambulate even after pain medication emergency department so she required admission for therapy, pain management and was found to have the above laboratory abnormalities which need addressed as well. [facility] Medical History Aneurysm Anxiety Depression Hx of benign neoplasm of parathyroid gland Osteoporosis CKD stage 3b, GFR 30-44 ml/min Wears dentures Wears glasses Post-menopausal Cancer History of steroid therapy Arthritis Back pain Hypertension Gastric reflux Non-smoker Shortness of breath on exertion History of pain when walking History of edema History of echocardiogram History of stress test Cardiology follow-up encounter Hx of vaginal delivery Sciatica Nonrheumatic mitral (valve) insufficiency Right bundle branch block (RBBB) Hyperlipidemia Chronic kidney disease, stage 3 Iron deficiency anemia Intestinal disaccharidase deficiencies and disaccharide malabsorption Hiatal hernia Diverticulitis Colon cancer ( 2008) Essential (primary) hypertension GERD (gastroesophageal reflux disease) Home Medications ???Medication ???Instructions ???Recorded ???Last Taken ???Type lisinopril 20 mg tablet 20 mg PO DAILY blood pressure #90 04/09/19 01/30/20 12:00 Rx tabs 1 meclizine 12.5 mg tablet 12.5 mg PO BID-TID vertigo 04/09/19 01/31/20 08:00 History 1 thkoxlqz-iwes-liad 8 mg-folic 400 1 tab PO DAILY supplement 04/09/19 01/31/20 08:00 History mcg-K 50 mcg-lutein 300 mcg tablet (Centrum Silver Women) hydrochlorothiazide 25 mg tablet 25 mg PO DAILY blood pressure 01/15/21 Unknown History carvedilol 12.5 mg tablet 25 mg PO DAILY heart 06/30/21 07/25/21 05:00 History aspirin 81 mg chewable tablet 1 tab PO DAILY heart health 02/13/24 Unknown History (Aspirin Childrens) citalopram 20 mg tablet 20 mg PO DAILY depression 02/13/24 Unknown History omeprazole 40 mg capsule,delayed 40 mg PO DAILY gerd 02/13/24 Unknown History release Allergy/AdvReac Type Severity Reaction Status Date / Time Penicillins Allergy Intermediate swelling Verified 02/13/24 09:42 joints rofecoxib (From Vioxx) Allergy mouth sores Verified 02/13/24 09:42 Family History Father Myocardial infarction, Onset Age: 48 from an AL age 48 Brother CVA (cerebral vascular accident) Mother CVA (cerebral vascular accident) Other CAD (coronary artery disease) Cancer Surgical History History of colonoscopy ( 2016) History of left heart catheterization (07/30/18) Hx of cholecystectomy H/O right hemicolectomy Social History (Updated 02/13/24 @ 17:[address] 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 Normal [facility] HIP, UNI W/ Pelvis 2-3 Views on 02-13-2024 HIP, UNI W/ Pelvis 2-3 Views [facility] Imaging Services [address] [place] [id number] HIP, UNI W/ Pelvis 2-3 Views MR#: [id number] Acct: [id number] Name: LEONOR PAL Rep #: [id number] : 1940 F 83 From: Edward cox MD PCP: Dr. Chencho Urbina MD Status: REG ER Study: HIP, UNI W/ Pelvis 2-3 Views Date of Exam: 10/31 Exam# [id number] Ordering Dr: Isis Mancini DO [id number] STUDY: X-RAY - PELVIS AND RIGHT HIP REASON FOR EXAM: Female, 83 years old. Right hip pain following injury. TECHNIQUE: 3 views of the pelvis and hip. COMPARISON: None. FINDINGS: There is a non-specific bowel gas pattern. Normal visualized soft tissue structures. There is narrowing with cortical sclerosis and osteophyte formation of the sacroiliac joint consistent with degenerative osteoarthritic changes. Nondisplaced fractures along the medial aspect of the right superior and inferior pubic rami. There is narrowing with sclerosis of the pubic symphysis. Normal bilateral ischial tuberosities. Normal visualized femoral head. Normal acetabulum. There is mild articular joint space narrowing of the hip. RAD/HIP, UNI W/ Pelvis 2-3 Views IMPRESSION: Nondisplaced fractures along the medial aspect of the right superior and inferior pubic rami. Electronically Signed: Edward Strickland MD at 10:50 EDT , CC: Dr. Isis Mancini DO; Dr. Chencho Urbina MD Decision Science Analyst: Signed Normal [facility] Vitamin D,25 Hydroxyon 02-12 Vitamin D 25-OH 63.2 ng/mL Normal [facility] Comment on above: Result Comment: Qian min D 25(OH) Status Range Deficiency <20 ng/mL (50nmol/L) Insufficiency 20 - 30 ng/mL (50 - 75 nmol/L) Sufficiency 30 - 100 ng/mL (75 - 250 nmol/L) Toxicity >100 ng/mL (>250 nmol/L) Performed By: #### L [id number] #### [facility] [address] [place], [address] CNPNon [facility]-01-2024 [facility] 25(OH)D3 [facility] 2023 25-hydroxyvitamin D3 [Mass/Vol] 54.7 ng/mL Normal 31.0-80.0 [facility] Comment on above: Order Comment: Speci men Type: BLOOD SPECIMENOrdering Facility: [facility] Address: [address] [place] [address] Result Comment: Clas sification of 25 [place] Vitamin D status:Deficiency/Insufficiency: < or = 30 ng/ml.Sufficiency/Optimal Levels: 31-80 ng/mLToxicity: > 100 ng/mL.Test performed by chemiluminescent immunoassay. Performed By: #### 1 [id number] ####[facility] LABCLIA [id number] [place] [id number] [place] CNPNon 11-15-2023 CNPN Normal [facility] CT Neck W contrast Agata 06-0 * * *Final Report* * * DATE OF EXAM: Nov 15 2023 10:01AM [facility] 0024 - CTA NECK W IVCON / PROCEDURE REASON: Nonruptured cerebral aneurysm * * * * Physician Interpretation * * * * EXAMINATION: CTA HEAD W IVCON, CTA NECK W IVCON CLINICAL HISTORY: Aneurysm TECHNIQUE: High resolution axial images were obtained through the head, neck, and superior mediastinum following bolus administration of intravenous contrast for CT angiography. 3D maximum intensity projection images were created, reviewed and archived . Contrast: 85 mL Omnip[address] Radiation dose: Integrated Dose-Length Product (DLP) for this visit = 781 mGy*cm. CT Dose Reduction Employed: Automated exposure control(AEC) and iterative recon COMPARISON: MRA of the brain 05/15/2023 RESULT: BRAIN: No evidence of acute large vascular territory infarct, space-occupying hemorrhage, mass effect, or hydrocephalus. NECK: Soft tissues: The soft tissue planes are maintained throughout. No evidence of a soft tissue mass in the neck or superior mediastinum. No significant lymphadenopathy is seen. Postsurgical changes are present along the thyroid gland. Spine: No evidence of substantial canal stenosis. Lung apices: No airspace disease or mass lesions identified. CT ARTERIOGRAM: Extracranial Circulation: Aortic Arch: There is a normal branching pattern from the aortic arch. There is no significant stenosis in the proximal brachiocephalic vessels. Carotid Stenosis: Right Common: No significant stenosis. Right Internal Carotid Plaque: No significant plaque formation. Mild multifocal luminal irregularity and beaded appearance of the mid right cervical ICA. Right Internal Carotid Stenosis (% by NASCET Criteria): 0 Left Common: No significant stenosis. Left Internal Carotid Plaque: No significant plaque formation. 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 Left Internal Carotid Stenosis (% by NASCET Criteria): 0 Cervical Vertebral Arteries: Patency: Mild multifocal luminal irregularity of the distal V2/proximal V3 segments of the vertebral arteries bilaterally. No flow-limiting stenosis or occlusion. Dominance: Codominant. Intracranial Circulation: Anterior Circulation: No flow-limiting stenosis or large vessel occlusion. Unchanged size of 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 Vertebrobasilar Circulation: No flow-limiting stenosis, large vessel occlusion, or aneurysm. DIVISION OF RADIOLOGY Provider, [facility] - 11/15/2023 * * *Final Report* * * DATE OF EXAM: Nov 15 2023 10:01AM [facility] 0024 - CTA NECK W IVCON / PROCEDURE REASON: Nonruptured cerebral aneurysm * * * * Physician Interpretation * * * * EXAMINATION: CTA HEAD W IVCON, CTA NECK W IVCON CLINICAL HISTORY: Aneurysm TECHNIQUE: High resolution axial images were obtained through the head, neck, and superior mediastinum following bolus administration of intravenous contrast for CT angiography. 3D maximum intensity projection images were created, reviewed and archived . Contrast: 85 mL Omnipaque [address] Radiation dose: Integrated Dose-Length Product (DLP) for this visit = 781 mGy*cm. CT Dose Reduction Employed: Automated exposure control(AEC) and iterative recon COMPARISON: MRA of the brain 05/15/2023 RESULT: BRAIN: No evidence of acute large vascular territory infarct, space-occupying hemorrhage, mass effect, or hydrocephalus. NECK: Soft tissues: The soft tissue planes are maintained throughout. No evidence of a soft tissue mass in the neck or superior mediastinum. No significant lymphadenopathy is seen. Postsurgical changes are present along the thyroid gland. Spine: No evidence of substantial canal stenosis. Lung apices: No airspace disease or mass lesions identified. CT ARTERIOGRAM: Extracranial Circulation: Aortic Arch: There is a normal branching pattern from the aortic arch. There is no significant stenosis in the proximal brachiocephalic vessels. Carotid Stenosis: Right Common: No significant stenosis. Right Internal Carotid Plaque: No significant plaque formation. Mild multifocal luminal irregularity and beaded appearance of the mid right cervical ICA. Right Internal Carotid Stenosis (% by NASCET Criteria): 0 Left Common: No significant stenosis. Left Internal Carotid Plaque: No significant plaque formation. 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 Left Internal Carotid Stenosis (% by NASCET Criteria): 0 Cervical Vertebral Arteries: Patency: Mild multifocal luminal irregularity of the distal V2/proximal V3 segments of the vertebral arteries bilaterally. No flow-limiting stenosis or occlusion. Dominance: Codominant. Intracranial Circulation: Anterior Circulation: No flow-limiting stenosis or large vessel occlusion. Unchanged size of 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 Vertebrobasilar Circulation: No flow-limiting stenosis, large vessel occlusion, or aneurysm. IMPRESSION IMPRESSION: Unchanged size of 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 Findings are compatible with sequelae of fibromuscular dysplasia and/or prior arterial injury. No evidence of flow limiting stenosis or occlusion involving the major arteries of the head and neck. Arterial blood flow was measured to detect acute large vessel occlusion by computer aided detection software: Not Performed Decision Science Analyst: CECILE Transcribe Date/Time: Nov 15 2023 11:26A Dictated by : YANET DAVIDSON MD This examination was interpreted and the report reviewed and electronically signed by: YANET DAVIDSON MD on Nov 15 2023 11:33AM EST [facility] CTA HEAD W IVCONon CTA HEAD W IVCON Normal [facility] CTA Head Arteries W contrast Agata 11-15-2023 * * *Final Report* * * DATE OF EXAM: Nov 15 2023 10:01AM [facility] 0022 - CTA HEAD W IVCON / PROCEDURE REASON: Nonruptured cerebral aneurysm * * * * Physician Interpretation * * * * EXAMINATION: CTA HEAD W IVCON, CTA NECK W IVCON CLINICAL HISTORY: Aneurysm TECHNIQUE: High resolution axial images were obtained through the head, neck, and superior mediastinum following bolus administration of intravenous contrast for CT angiography. 3D maximum intensity projection images were created, reviewed and archived . Contrast: 85 mL Omnipaque [address] Radiation dose: Integrated Dose-Length Product (DLP) for this visit = 781 mGy*cm. CT Dose Reduction Employed: Automated exposure control(AEC) and iterative recon COMPARISON: MRA of the brain 05/15/2023 RESULT: BRAIN: No evidence of acute large vascular territory infarct, space-occupying hemorrhage, mass effect, or hydrocephalus. NECK: Soft tissues: The soft tissue planes are maintained throughout. No evidence of a soft tissue mass in the neck or superior mediastinum. No significant lymphadenopathy is seen. Postsurgical changes are present along the thyroid gland. Spine: No evidence of substantial canal stenosis. Lung apices: No airspace disease or mass lesions identified. CT ARTERIOGRAM: Extracranial Circulation: Aortic Arch: There is a normal branching pattern from the aortic arch. There is no significant stenosis in the proximal brachiocephalic vessels. Carotid Stenosis: Right Common: No significant stenosis. Right Internal Carotid Plaque: No significant plaque formation. Mild multifocal luminal irregularity and beaded appearance of the mid right cervical ICA. Right Internal Carotid Stenosis (% by NASCET Criteria): 0 Left Common: No significant stenosis. Left Internal Carotid Plaque: No significant plaque formation. 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 Left Internal Carotid Stenosis (% by NASCET Criteria): 0 Cervical Vertebral Arteries: Patency: Mild multifocal luminal irregularity of the distal V2/proximal V3 segments of the vertebral arteries bilaterally. No flow-limiting stenosis or occlusion. Dominance: Codominant. Intracranial Circulation: Anterior Circulation: No flow-limiting stenosis or large vessel occlusion. Unchanged size of 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 Vertebrobasilar Circulation: No flow-limiting stenosis, large vessel occlusion, or aneurysm. DIVISION OF RADIOLOGY Provider, [facility] - 11/15/2023 * * *Final Report* * * DATE OF EXAM: Nov 15 2023 10:01AM [facility] 0022 - CTA HEAD W IVCON / PROCEDURE REASON: Nonruptured cerebral aneurysm * * * * Physician Interpretation * * * * EXAMINATION: CTA HEAD W IVCON, CTA NECK W IVCON CLINICAL HISTORY: Aneurysm TECHNIQUE: High resolution axial images were obtained through the head, neck, and superior mediastinum following bolus administration of intravenous contrast for CT angiography. 3D maximum intensity projection images were created, reviewed and archived . Contrast: 85 mL Omnipaque [address] Radiation dose: Integrated Dose-Length Product (DLP) for this visit = 781 mGy*cm. CT Dose Reduction Employed: Automated exposure control(AEC) and iterative recon COMPARISON: MRA of the brain 05/15/2023 RESULT: BRAIN: No evidence of acute large vascular territory infarct, space-occupying hemorrhage, mass effect, or hydrocephalus. NECK: Soft tissues: The soft tissue planes are maintained throughout. No evidence of a soft tissue mass in the neck or superior mediastinum. No significant lymphadenopathy is seen. Postsurgical changes are present along the thyroid gland. Spine: No evidence of substantial canal stenosis. Lung apices: No airspace disease or mass lesions identified. CT ARTERIOGRAM: Extracranial Circulation: Aortic Arch: There is a normal branching pattern from the aortic arch. There is no significant stenosis in the proximal brachiocephalic vessels. Carotid Stenosis: Right Common: No significant stenosis. Right Internal Carotid Plaque: No significant plaque formation. Mild multifocal luminal irregularity and beaded appearance of the mid right cervical ICA. Right Internal Carotid Stenosis (% by NASCET Criteria): 0 Left Common: No significant stenosis. Left Internal Carotid Plaque: No significant plaque formation. 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 Left Internal Carotid Stenosis (% by NASCET Criteria): 0 Cervical Vertebral Arteries: Patency: Mild multifocal luminal irregularity of the distal V2/proximal V3 segments of the vertebral arteries bilaterally. No flow-limiting stenosis or occlusion. Dominance: Codominant. Intracranial Circulation: Anterior Circulation: No flow-limiting stenosis or large vessel occlusion. Unchanged size of 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 Vertebrobasilar Circulation: No flow-limiting stenosis, large vessel occlusion, or aneurysm. IMPRESSION IMPRESSION: Unchanged size of 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 Findings are compatible with sequelae of fibromuscular dysplasia and/or prior arterial injury. No evidence of flow limiting stenosis or occlusion involving the major arteries of the head and neck. Arterial blood flow was measured to detect acute large vessel occlusion by computer aided detection software: Not Performed Decision Science Analyst: CECILE Transcribe Date/Time: Nov 15 2023 11:26A Dictated by : YANET DAVIDSON MD This examination was interpreted and the report reviewed and electronically signed by: YANET DAVIDSON MD on Nov 15 2023 11:33AM EST [facility] Center CTA NECK W IVCONon 4 CTA NECK W IVCON Normal [facility] Comprehensive metabolic 2000 panelon 11-15-2023 Albumin [Mass/Vol] 4.1 g/dL Normal 3.9-4.9 [facility] Comment on above: Order Comment: Speci men Type: BLOOD SPECIMENOrdering Facility: [facility] Address: [address] [place] [address] Performed By: #### 2 4323-8, ####[facility] ORLANDOMARLENYLIA [id number] [place] [address] [place] ALP [Catalytic activity/Vol] 59 U/L Normal 34-123 [facility] Comment on above: Order Comment: Speci men Type: BLOOD SPECIMENOrdering Facility: [facility] Address: [address] [place] [address] Performed By: #### 2 4323-8, ####[facility]A [id number] [place] [address] [place] ALT [Catalytic activity/Vol] 9 U/L Normal 7-38 [facility] Comment on above: Order Comment: Speci men Type: BLOOD SPECIMENOrdering Facility: [facility] Address: [address] [place] [address] Performed By: #### 2 4323-8, ####[facility] ORLANDONCLIA [id number] [place] [address] [place] Anion gap [Moles/Vol] 11 mmol/L Normal 8-15 [facility] Comment on above: Order Comment: Speci men Type: BLOOD SPECIMENOrdering Facility: [facility] Address: [address] [place] [address] Performed By: #### 2 4328, ####[facility] MILLTOWNCLIA [id number] [place] [address] [place] AST [Catalytic activity/Vol] 19 U/L Normal 13-35 [facility] Comment on above: Order Comment: Speci men Type: BLOOD SPECIMENOrdering Facility: [facility] Address: [address] [place] [address] Performed By: #### 2 432-8, ####[facility] MILLTOWNCLIA [id number] [place] [address] [place] Bilirubin [Mass/Vol] 0.5 mg/dL Normal 0.2-1.3 [facility] Comment on above: Order Comment: Speci men Type: BLOOD SPECIMENOrdering Facility: [facility] Address: [address] [place] [address] Performed By: #### 2 432-8, ####[facility]ITALWNCLIA [id number] [place] [address] [place] Calcium [Mass/Vol] 9.1 mg/dL Normal 8.5-10.2 [facility] Comment on above: Order Comment: Speci men Type: BLOOD SPECIMENOrdering Facility: [facility] Address: [address] [place] [address] Performed By: #### 2 4328, ####[facility]PITALWNCLIA [id number] [place] [address] [place] Chloride [Moles/Vol] 98 mmol/L Normal 98-107 [facility] Comment on above: Order Comment: Speci men Type: BLOOD SPECIMENOrdering Facility: [facility] Address: [address] [place] [address] Performed By: #### 2 4323-8, ####[facility] MILLWNCLIA [id number] [place] [address] [place] CO2 [Moles/Vol] 22 mmol/L Normal 22-30 [facility] Comment on above: Order Comment: Margarito batista Type: BLOOD SPECIMENOrdering Facility: [facility] Address: [address] [place] [address] Performed By: #### 2 4323-8, 40125-8 ####[facility] [id number] [place] [address] [place] Creatinine [Mass/Vol] 1.23 mg/dL High 0.58-0.96 [facility] Comment on above: Order Comment: Speci men Type: BLOOD SPECIMENOrdering Facility: [facility] Address: [address] [place] [address] Performed By: #### 2 4323-8, ####[facility] [id number] [place] [address] [place] Creatinine and Glomerular filtration rate.predicted panel (S/P/Bld) 43 mL/min/1.73m??? Low >=60 [facility] Comment on above: Order Comment: Margarito batista Type: BLOOD SPECIMENOrdering Facility: [facility] Address: [address] [place] [address] Result Comment: Janeen mated Glomerular Filtration Rate (eGFR) is calculated using the 2020 CKD-EPI creatinine equation. This equation utilizes serum creatinine, sex, and age as parameters. The creatinine assay has traceable calibration to isotope dilution-mass spectrometry. Refer to KDIGO guidelines for clinical interpretation. In patients with unstable renal function, e.g. those with acute kidney injury, the eGFR may not accurately reflect actual GFR. Performed By: #### 2 4323-8, ####[facility] ORLANDONCLIA [id number] [place] [address] [place] Glucose [Mass/Vol] 104 mg/dL High 74-99 [facility] Comment on above: Order Comment: Speci men Type: BLOOD SPECIMENOrdering Facility: [facility] Address: [address] [place] [address] Result Comment: The [place] [employer] (ADA) provides guidance for cutoff values for fasting glucose and random glucose. The ADA defines fasting as no caloric intake for at least 8 hours. Fasting plasma glucose results between 100 to 125 mg/dL indicate increased risk for diabetes (prediabetes).Fasting plasma glucose results greater than or equal to 126 mg/dL meet the criteria for diagnosis of diabetes. In the absence of unequivocal hyperglycemia, results should be confirmed by repeat testing. In a patient with classic symptoms of hyperglycemia or hyperglycemic crisis, random plasma glucose results greater than or equal to 200 mg/dL meet the criteria for diagnosis of diabetes.Reference: Standards of Medical Care in Diabetes 2016, [place] [employer]. Diabetes Care. 2016.39(Suppl 1). Performed By: #### 2 4323-8, 41834-0 ####[facility] JACKSONVILLEMannie [id number] [place] [address] [place] Potassium [Moles/Vol] 3.7 mmol/L Normal 3.7-5.1 [facility] Comment on above: Order Comment: Margarito batista Type: BLOOD SPECIMENOrdering Facility: [facility] Address: [address] [place] [address] Performed By: #### 2 4323-8, ####[facility] MED[facility] CENTERMYKE [id number] [place] [address] [place] Protein [Mass/Vol] 7.2 g/dL Normal 6.3-8.0 [facility] Comment on above: Order Comment: Margarito men Type: BLOOD SPECIMENOrdering Facility: [facility] Address: [address] [place], [place] [id number] Performed By: #### 2 4323-8, ####[facility]ITALWNCLIA [id number] [place] [address] [place] Sodium [Moles/Vol] 131 mmol/L Low 136-144 [facility] [place] Comment on above: Order Comment: Speci men Type: BLOOD SPECIMENOrdering Facility: [facility] Address: [facility] [place] [id number] Performed By: #### 2 4323-8, 20474-4 ####[facility] [id number] [place] [address] [place] Urea nitrogen [Mass/Vol] 16 mg/dL Normal 7-21 [facility] Comment on above: Order Comment: Speci men Type: BLOOD SPECIMENOrdering Facility: [facility] Address: [address] [place] [address] Performed By: #### 2 4323-8, ####[facility] [id number] [address] [place] Magnesium SerPl-mCncon 11-14 Magnesium [Mass/Vol] 1.7 mg/dL Normal 1.7-2.3 [facility] Comment on above: Order Comment: Speci men Type: BLOOD SPECIMENOrdering Facility: [facility] Address: [facility] [place] [address] Performed By: #### 2 4323-8, 90443-3 ####[facility] ORLANDONCLI [id number] [place] [address] [place] No Panel Informationon 11-14 IMPRESSION: Unchanged size of 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 Findings are compatible with sequelae of fibromuscular dysplasia and/or prior arterial injury. No evidence of flow limiting stenosis or occlusion involving the major arteries of the head and neck. Arterial blood flow was measured to detect acute large vessel occlusion by computer aided detection software: Not Performed Decision Science Analyst: CECILE Transcribe Date/Time: Nov 15 2023 11:26A Dictated by : YANET DAVIDSON MD This examination was interpreted and the report reviewed and electronically signed by: YANET DAVIDSON MD on Nov 15 2023 11:33AM [facility] DIVISION OF RADIOLOGY Radiology Study observation (narrative) [facility] No Panel InformationOrdered By: Ccf Provider on 11-15-2023 [facility] PTH-Intact SerPl-mCncon 06-0 Parathyrin.intact [Mass/Vol] 45 pg/mL Normal 15-65 [facility] Comment on above: Order Comment: Speci men Type: BLOOD SPECIMENOrdering Facility: [facility] Address: [address] [place] [address] Performed By: #### 2 731-8 ####[facility] LABCLIA [id number] [facility] [id number] [place] [address] CNOVon 05-16-2023 CNOV Office Visit (NEV) KAELEONOR Taylor ([id number]) 1940 F NFR Date Time Provider Department 05/16/23 9:30 AM KIERRA ALFARO [facility] During your visit today, we recorded the following information about you: Pulse Respiration Blood pressure Weight 64/minute 16/minute 125/81 67.4 kg Height 1.575 m Kierra Alfaro MD 05/17/2023 2:15 PM Signed [facility] Established Visit Leonor Pal [facility] [id number] Date of Service: 05/16/2023 Primary Care Provider: Chencho Urbina MD FOLLOW UP VISIT This is 6 month follow-up Reason for Visit: Right A2 BETH aneurysm, close monitoring Handedness: right From previous consult visit with Dr Keyes 11/13/22 Ms. Pal is an 82-year-old female, who presents for evaluation of an incidentally discovered brain aneurysm. The patient had screening carotid ultrasound, which raised suspicion of a thyroid cyst. Thyroid ultrasound was ordered, followed by CT of the neck to evaluate the thyroid. Incidentally, the neck CT also included images of the brain, which raised suspicion of an unruptured brain aneurysm. The patient otherwise reports occasional mild headaches. She reports no neurologic symptoms or deficits otherwise. There is no family history of brain aneurysm or hemorrhage. The patient does not smoke. Her blood pressure is controlled with medications. She presents today with her family to discuss available management options. Hypertension Y Coronary Artery Disease NA Diabetes NA Obesity NA Dyslipidemia NA Tobacco Use (Please Update Smoking History) NA Stroke NA Intracranial Aneurysm NA Interval history: - No change in neurological or systemic health - No change in headache severity, frequency or characteristics - No transient or persistent visual, language, speech, swallowing, motor, sensory, coordination, or gait deficits. Past Medical History: ACTIVE PROBLEM LIST Chronic Right-Sided Low Back Pain Disorder of bone and cartilage, unspecified Diverticulitis of colon (without mention of hemorrhage)(562.11) Seasonal Allergic Rhinitis Gerd Without Esophagitis Essential Hypertension Elevated Fasting Blood Sugar Mixed Hyperlipidemia Colon Cancer(cecum) Hh (Hiatus Hernia) Sciatica Malignant Neoplasm of Colon (Hcc) Personal History of Colon Cancer Iron Deficiency Anemia, Unspecified Encounter for Screening Mammogram for Breast Cancer Stage 3a Chronic Kidney Disease (Hcc) Second Hand Smoke Exposure Family History of Early Cad Sensory Hearing Loss, Bilateral Tinnitus of Left Ear Medicare Annual Wellness Visit, Subsequent Chronic Right-Sided Thoracic Back Pain Carotid Stenosis, Asymptomatic, Bilateral Facial Basal Cell Cancer Benign Paroxysmal Positional Vertigo Medication Management Living Will On File At Physician's Office Advance Directive Discussed With Patient Squamous Cell Skin Cancer Situational Depression Thyroid Nodule Neck Mass Nontoxic Multinodular Goiter Hyponatremia Nonruptured Cerebral Aneurysm Rbbb History of Unsteady Gait Hypomagnesemia Primary Hyperparathyroidism (Hcc) Age-Related Osteoporosis Without Current Pathological Fracture PAST SURGICAL HISTORY Procedure Laterality Date 2D ECHO (EXEP) 05/01/2017 65%, with mild diast dysf and 1+ AL. CARDIAC STRESS TEST 05/01/2017 negative CHOLECYSTECTOMY 1985 Cholecystectomy COLONOSCOPY 07/13/2016 Repeat 07/2021 COLONOSCOPY FLX DX W/COLLJ SPEC WHEN PFRMD 12/22/2010 repeat in COLONOSCOPY FLX DX W/COLLJ SPEC WHEN PFRMD 01/08/2014 per repeat in 3-5 years COLONOSCOPY W/BIOPSY SINGLE/MULTIPLE 09/29/2009 Cecal carcinoma EGD TRANSORAL BIOPSY SINGLE/MULTIPLE 09/29/2009 Small HH HEART CATHETERIZATION 07/30/2018 normal coronaries PAST SURGICAL HISTORY OF 10/2009 Rt hemicolectomy Allergies: Penicillins, Vioxx [Rofecoxib], and Zoloft [Sertraline] Medications: Current Outpatient Medications Medication Sig iquvkcc-jrzqfrqrp-wqst min D3 500 mg-5 mcg (200 unit) per tablet Take 1 tablet by mouth two times a day with meals. omeprazole (PRILOSEC) 20 mg capsule Take 1 capsule by mouth once daily. Take 30 minutes before breakfast. meclizine (ANTIVERT) 12.5 mg tab Take 1 tablet by mouth two times a day. citalopram (CELEXA) 20 mg tablet Take 1 tablet by mouth once daily. carvedilol (COREG) 12.5 mg tablet Take 1 tablet by mouth two times a day. hydroCHLOROthiazide 25 mg tablet Take 1 tablet by mouth once daily. lisinopril (ZESTRIL) 20 mg tablet Take 1 tablet by mouth once daily. Magnesium Oxide 250 mg magnesium tab Take 1 tablet by mouth two times a day. acetaminophen (TYLENOL) 500 mg tablet Take 1 tablet by mouth every 4 hours as needed for pain. No current facility-administered medications for this visit. Social History Tobacco Use Smoking status: Never Smokeless tobacco: Never Vaping Use V (more content not included)... [facility] LEONOR PAL ([id number]) 1940 F NFR Date Time Provider Department [facility]/11[facility] During your visit today, we recorded the following information about you: Allergies As of Date: 04/11/2023 Noted Allergy Reaction PENICILLINS 04/09/2019 7 - Swelling 17 - Myalgia Comments: Tolerated cephalexin 10/2022 VIOXX (ROFECOXIB) 05/07/2005 16 - Unknown ZOLOFT (SERTRALINE) 09/20/2022 8 - GI Upset Comments: Patient thought it made her feel sick, however she stated she was taking the new med 3 times a day and didn't start the other medication. (Zoloft and ativan were prescribed at same time). So we question if she was taking the correct medication or taking it as prescribed. Date Reviewed: 03/25/2023 Reviewed by: Jorge Cortes RN - Fully Assessed Reason for Visit: Appointment [186] Cmt: Called patient and left a message per staff messge from to schedule an appointment with to follow-up after parathyroidectomy and sent [employer] message Prescriptions as of 04/11/2023 - meclizine (ANTIVERT) 12.5 mg tab Take 1 tablet by mouth two times a day. - acetaminophen (TYLENOL) 500 mg tablet Take 1 tablet by mouth every 4 hours as needed for pain. - fuzyhwr-hbqabmivd-evyk min D3 500 mg-5 mcg (200 unit) per tablet Take 1 tablet by mouth three times a day. - calcium carbonate (TUMS) 500 mg chew Take 1 tablet by mouth every hour as needed (mouth or hand numbness or tingling). - citalopram (CELEXA) 20 mg tablet Take 1 tablet by mouth once daily. - carvedilol (COREG) 12.5 mg tablet Take 1 tablet by mouth two times a day. - hydroCHLOROthiazide 25 mg tablet Take 1 tablet by mouth once daily. - lisinopril (ZESTRIL) 20 mg tablet Take 1 tablet by mouth once daily. - Magnesium Oxide 250 mg magnesium tab Take 1 tablet by mouth two times a day. - omeprazole (PRILOSEC) 20 mg capsule Take 1 capsule by mouth once daily. Take 30 minutes before breakfast. Problem List As Of Date 04/11/2023 Noted Resolved Chronic right-sided low back pain [M54.50, G89.* Disorder of bone and cartilage, unspecified [M8* Diverticulitis of colon (without mention of hem* Seasonal allergic rhinitis [J30.2] GERD without esophagitis [K21.9] Essential hypertension [I10] Elevated fasting blood sugar [R73.01] 07/05/2006 Mixed hyperlipidemia [E78.2] 01/03/2007 Colon Cancer(cecum) [C18.9] 09/29/2009 HH (hiatus hernia) [K44.9] 09/29/2009 Sciatica [M54.30] 06/28/2011 Malignant neoplasm of colon (HCC) [C18.9] Personal history of colon cancer [Z85.038] 12/21/2013 Iron deficiency anemia, unspecified [D50.9] Encounter for screening mammogram for breast ca*12/09/2017 Stage 3a chronic kidney disease (HCC) [N18.31] 01/14/2018 Second hand smoke exposure [Z77.22] 01/14/2018 Family history of early CAD [Z82.49] 01/14/2018 Sensory hearing loss, bilateral [H90.3] 01/21/2018 Tinnitus of left ear [H93.12] 01/21/2018 Medicare annual wellness visit, subsequent [Z00*07/17/2018 Chronic right-sided thoracic back pain [M54.6, *07/17/2018 Carotid stenosis, asymptomatic, bilateral [I65.*07/21/2018 Facial basal cell cancer [C44.310] 01/12/2019 Benign paroxysmal positional vertigo [H81.10] 01/14/2019 Medication management [Z79.899] 03/01/2021 Living will on file at physician's office [Z78.*09/01/2021 Advance directive discussed with patient [Z71.8*09/01/2021 Squamous cell skin cancer [C44.92] 09/21/2021 Situational depression [F43.21] 09/20/2022 Thyroid nodule [E04.1] 09/30/2022 Neck mass [R22.1] 11/02/2022 Nontoxic multinodular goiter [E04.2] 02/20/2023 Hyponatremia [E87.1] 03/22/2023 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] 03/22/2023 RBBB [I45.10] 03/22/2023 History of unsteady gait [Z87.898] 03/22/2023 Hypomagnesemia [E83.42] 03/22/2023 Hyperparathyroidism (HCC) [E21.3] 04/10/2023 Encounter Status:Closed by WILLIAM CAMARA on 04/11/23 Normal [facility] Calcium [facility]-ncon 023 Calcium [Mass/Vol] 9.5 mg/dL Normal 8.5-10.2 [facility] Comment on above: Order Comment: Speci men Type: BLOOD SPECIMENOrdering Facility: [facility] Address: [address] [place] [address] Performed By: #### 1 7861-6 ####[facility] LABORATORYCLIA [id number] [place] [id number] [place] PTH-Intact [facility] 03-10 Parathyrin.intact [Mass/Vol] 11 pg/mL Low [facility] Comment on above: Order Comment: Speci men Type: BLOOD SPECIMENOrdering Facility: [facility] Address: [address] [place] [address] Performed By: #### 2 731-8 ####[facility] LABORATORYCLIA [id number] [place] [id number] [place] ANES POSTPROC EVALon 023 ANES POSTPROC EVAL HNO ID: [id number] Author: Farshad Jovel MD Service: Anesthesiology Author Type: Anesthesiologist Type: Anesthesia Postprocedure Evaluation Filed: 03/25/2023 3:58 PM Note Text: POST ANESTHESIA EVALUATION NOTE : 1940 Procedure Summary Date: 03/25/23 Room / Location: [place] [address] / OR Anesthesia Start: 737 Anesthesia Stop: 1035 Procedure: PARATHYROIDECTOMY (Bilateral: Thyroid) Diagnosis: Nontoxic multinodular goiter Hyperparathyroidism (HCC) (Nontoxic multinodular goiter [E04.2]) (Hyperparathyroidism (HCC) [E21.3]) Surgeons: Marge Hayes MD Responsible Provider: Farshad Jovel MD Anesthesia Type: general ASA Status: 2 Anesthesia Type: general Airway Type: ETT Last Vitals Vitals Value Taken Time BP 148/82 03/25/23 1516 Temp 36.8 ?C (98.2 ?F) 10/16/23 1516 Pulse 107 03/25/23 1516 Resp 20 03/25/23 1516 SpO2 93 % 03/25/23 1516 Post Anesthesia Patient Status Patient Evaluation: PACU. PACU/ICU Patient Condition: stable. Anticipated Disposition: inpatient floor planned admission. Neurological Status: aware and responsive. Pulmonary Status: breathing comfortably on room air Airway Control: returned to baseline unsupported. Cardiovascular Status: stable. Pain Management: clinically adequate - multimodal analgesia pain management approach Postoperative Hydration: acceptable. Intraoperative Events: no significant anesthesia events Recommendation: continue current plan of care. Anesthesia Observations No Documentation SIGNATURE: Farshad Jovel MD PATIENT NAME: Leonor Pal DATE: March 25, 2023 TIME: 3:57 PM CSN: [id number] [facility] ANES PRE-OPon 03-25-2023 ANES PRE-OP HNO ID: [id number] Author: Farshad Jovel MD Service: Anesthesiology Author Type: Anesthesiologist Type: Anesthesia Preprocedure Evaluation Filed: 03/25/2023 6:47 AM Note Text: ANESTHESIOLOGY DAY OF SURGERY NOTE : 1940 Procedure Information Date/Time: 03/25/23729 Procedure: PARATHYROIDECTOMY (Thyroid) Location: MM OR05 / MM OR Surgeons: Marge Hayes MD Estimated body mass index is 26.7 kg/m? as calculated from the following: Height as of 03/22/23: 157.5 cm (5' 2). Weight as of 03/22/23: 66.2 kg (146 lb). Most recent hematocrit and potassium results: Hematocrit 34.6 03/22/2023 Potassium 3.9 03/22/2023 Relevant Problems CARDIO (+) Carotid stenosis, asymptomatic, bilateral (+) Essential hypertension (+) Nonruptured cerebral aneurysm (+) RBBB GI (+) GERD without esophagitis (+) HH (hiatus hernia) -RENAL (+) Stage 3a chronic kidney disease (HCC) NEURO-PSYCH (+) History of unsteady gait (+) Personal history of colon cancer I - PHYSICAL EVALUATION AIRWAY Patient intubated: No. Tracheostomy tube not present Mallampati: II. TM distance: >3 FB. Neck ROM: full ROM without neurological symptoms. Mouth opening: adequate. Short neck: no. Thick neck: no DENTAL Dental findings: teeth intact. Additional exam findings: no II - ANESTHESIA PLAN ASA Score: 2 Anesthetic Plan: general Airway type: ETT NPO Status: adequate Beta Gilmer Monitoring Plan Monitoring plan: Standard ASA. Post Procedure Analgesic Plan Postoperative analgesic plan: parenteral or oral opioids and multimodal analgesia. Informed Consent Anesthetic risks, benefits, alternatives, personnel and consent discussed: yes. Patient / Responsible Libertarian agrees to proceed: yes Patient / Surrogate agrees to blood products: yes DNR status not reviewed with patient and/or family prior to surgery. Significant changes in the patient condition since the History and Physical, not otherwise documented in primary service progress note: no. Potential Anesthesia issues that may suggest increased risk of complications or contraindication to planned procedure: none. Discussed the possibility of lip / dental damage: no Vitals Value Taken Time BP 154/83 03/25/23613 Pulse 86 03/25/23613 Resp 16 03/25/23613 Temp 36.5 ?C (97.7 ?F) 03/25/23613 SpO2 97 % 03/25/23613 Facility-Administered Medications as of 03/25/2023 Medication Dose Route Frequency - NaCl 0.9% iv infusion 75 mL/hr INTRAVENOUS CONTINUOUS Outpatient Medications as of 03/25/2023 Medication Sig - meclizine (ANTIVERT) 12.5 mg tab Take 1 tablet by mouth three times daily. (Patient taking differently: Take 12.5 mg by mouth two times a day.) - omeprazole (PRILOSEC) 20 mg capsule Take 1 capsule by mouth once daily. Take 30 minutes before breakfast. I have interviewed and examined the patient. I have reviewed the medical record and/or the pre-anesthesia evaluation, pertinent labs, and test results. This contains updated information obtained within 48 hours of Surgery/Procedure. SIGNATURE: Farshad Jovel MD PATIENT NAME: Leonor Pal DATE: March 25, 2023 TIME: 6:46 AM CSN: [id number] [facility] BRIEF OP NOTon 03-25-2023 BRIEF OP NOT HNO ID: [id number] Author: Marline Brito Jr., MD Service: ? Author Type: Physician Type: Brief Op Note Filed: 03/25/2023 10:39 AM Note Text: Brief Operative Note Patient Name: Leonor Pal LOG ID: [id number] Surgery/Procedure Date: 03/25/2023 Surgeon(s)/Procedurali st(s) and E Commerce Solution Architect(s): Surgeon(s) and Role: * Marge Hayes MD - Primary * Marline Brito Jr., MD - Fellow Procedure(s): parathyroidectomy Incision/Procedure Start Time: 8:11 AM Incision Close/Procedure End Time: 10:20 AM Anesthesia: General Findings: enlarged ru and left Input: Crystalloid: See anesthesia record Output: See anesthesia record Estimated Blood Loss: 20 mL Specimens: ID Type Source Tests Collected by Time Destination 1 : Pre PTH Blood BLOOD INTRAOPERATIVE PTH Marge Hayes MD 03/25/2023 8:31 AM 2 : Post PTH Blood BLOOD INTRAOPERATIVE PTH Marge Hayes MD 03/25/2023 9:22 AM 3 : POST Blood BLOOD INTRAOPERATIVE PTH Marge Hayes MD 03/25/2023 9:58 AM A : Left upper totally excised,all submitted Tissue PARATHYROID GLAND LEFT SURGICAL PATHOLOGY Marge Hayes MD 03/25/2023 9:12 AM B : right upper parathyroid Tissue PARATHYROID GLAND RIGHT SURGICAL PATHOLOGY Marge Hayes MD 03/25/2023 9:45 AM Implants: * No implants in log * Drains: non Wound Classification: Class 1, operative wound clean, non-traumatic, with no inflammation encountered, no break in technique, gastrointestinal and genitor-urinary tracts not entered Pre-Op/Pre-Procedure Diagnosis: same Post-Op/Post-Procedure Diagnosis: same Post-Op Plan: Recover in PACU. SIGNATURE: Marline Brito jr, MD DATE: 03/25/23 TIME: 10:39 AM Normal [facility] HBV core Ab Ser Qlon 023 HBV core Ab Ql (S) Negative Normal Negative [facility] Comment on above: Order Comment: Speci men Type: BLOOD SPECIMENOrdering Facility: [facility] Address: [address] [place] [address] Result Comment: No e vidence of current or past infection with Hepatitis B virus. Should recent infection be suspected, repeat testing may be considered 3-4 weeks after this draw. Performed By: #### 3 1201-7, 07333-0, 5-3 ####[facility] LABCLIA [id number] [place] [address] [place] HBV surface Ag Ser Qlon 03-10 HBV surface Ag Ql (S) Negative Normal Negative [facility] Comment on above: Order Comment: Speci men Type: BLOOD SPECIMENOrdering Facility: [facility] Address: [address] [place] [address] Performed By: #### 3 1201-7, 71130-8, 5-3 ####[facility] LABCLIA [id number] [place] [address] [place] HCV Ab Ser Qlon 03-25-2023 HCV Ab Ql (S) Negative Normal Negative [facility] Comment on above: Order Comment: Speci men Type: BLOOD SPECIMENOrdering Facility: [facility] Address: [address] [place] [address] Result Comment: The result suggests no evidence of active infection with Hepatitis C virus. Should recent infection be suspected, repeat testing may be considered 4-6 weeks after this draw. Performed By: #### 1 6128-1 ####[facility] LABCLIA [id number] [place] [address] [place] HIV 1+2 Ab IA Qlon 3 HIV 1 and 2 Ab IA.rapid Nom Normal [facility] Comment on above: Order Comment: Speci men Type: BLOOD SPECIMENOrdering Facility: [facility] Address: [address] [place] [address] Result Comment: Test not indicated. Performed By: #### 3 1201-7, 70701-2, 5-3 ####[facility] LABCLIA [id number] [place] [address] [place] HIV 1+2 Ab+HIV1 p24 Ag IA Ql Non-Reactive Normal Nonreactive [facility] Comment on above: Order Comment: Speci men Type: BLOOD SPECIMENOrdering Facility: [facility] Address: [address] [place] [address] Performed By: #### 3 1201-7, 21421-8, 5195-3 ####[facility] LABCLIA [id number] [place] [address] [place] HIV immunoassay testing algorithm interpretation (S/P/Bld) [Interp] [facility] Comment on above: Order Comment: Speci men Type: BLOOD SPECIMENOrdering Facility: [facility] Address: [address] [place] [address] Result Comment: No e vidence of HIV-1 or HIV-2 infection. Should recent infection be suspected, repeat testing may be considered 2-3 weeks after this draw. [place] Rev. Code 3701.243(E): This information has been disclosed to you from confidential records protected from disclosure by state law. ???You shall make no further disclosure of this information without the specific, written, and informed release of the individual to whom it pertains or as otherwise permitted by state law. A general authorization for the release of medical or other information is not sufficient for the purpose of the release of HIV test results or diagnoses. Performed By: #### 3 1201-7, 85263-2, 5195-3 ####[facility] LABCLIA [id number] [place] [address] [place] INTRAOPERATIVE PTHon 10-16-2 023 INTRAOPERATIVE PTH 24 pg/mL Normal 15-65 [facility] Comment on above: Order Comment: Speci men Type: BLOOD SPECIMENOrdering Facility: [facility] Address: [address] [place] [address] Performed By: #### R IPTH ####[facility] LABORATORYCLIA [id number] [place] [address] [place] INTRAOPERATIVE PTH 38 pg/mL Normal 15-65 [facility] Comment on above: Order Comment: Speci men Type: BLOOD SPECIMENOrdering Facility: [facility] Address: [address] [place] [address] Performed By: #### R IPTH ####[facility] LABORATORYCLIA [id number] [place] [id number] [facility] INTRAOPERATIVE PTH 105 pg/mL High 15-65 [facility] Comment on above: Order Comment: Speci men Type: BLOOD SPECIMENOrdering Facility: [facility] Address: [place] [address] Performed By: #### R IPTH ####[facility] LABORATORYCLIA [id number] [address] OPERATIVE NOon 03-25-2023 OPERATIVE NO HNO ID: [id number] Author: Marge Hayes MD Service: Endocrine Surgery Author Type: Physician Type: Operative Report Filed: 03/25/2023 10:35 AM Note Text: NAME: Leonor Pal : 1940 DATE OF SURGERY/PROCEDURE: 03/25/23 INCISION/PROCEDURE START TIME: 08:11 INCISION CLOSE/PROCEDURE END TIME: Skin closure completed at 10:19 PREOPERATIVE DIAGNOSIS: Primary hyperparathyroidism POSTOPERATIVE DIAGNOSIS: Primary hyperparathyroidism SURGEON: Marge Hayes MD CIVIL ENGINEERING PROFESSIONAL: 1.Marline Brito MD 2.JORDON Ross SURGERY/PROCEDURE: Parathyroidectomy with excision of left upper parathyroid adenoma and enlarged right upper parathyroid gland, intraoperative PTH determination, cryopreservation, intraoperative nerve monitoring, intraoperative neck ultrasound. ANESTHESIA: Endotracheal. HISTORY: This is an 82-year-old lady who was found to have a left central neck cyst on a carotid ultrasound. An FNA showed a parathyroid gland and her labs were consisted with primary hyperparathyroidism. Her sestamibi was negative. She was consented for parathyroidectomy. OPERATIVE FINDINGS: Intraoperative neck ultrasound before incision showed a 4 cm cyst along the lateral aspect of the left thyroid. The exploration was started at the left side. The left upper parathyroid cyst was along the left thyroid lobe, spanning from the lower to the upper pole. This parathyroid cyst/gland was excised. This structure measured 52Q51C68 mm. Frozen section revealed a hypercellular gland. Intraoperative PTH drawn from left anterior jugular vein pre excision was 105 and 10 minutes post excision, 38. The left lower parathyroid gland was just inferior to the lower pole of the left thyroid lobe and was of normal size and consistency. Then attention was directed at the right side. The right lower parathyroid gland was at the cephalad aspect of thyrothymic ligament, just lateral to the lower pole of the right thyroid lobe,and was of normal size and consistency. The right upper parathyroid gland was slightly more inferior than its usual anatomic location in a descended paraesophageal location. This gland measured 12X9X5 mm. This gland was firmer and larger than the remaining two glands. Therefore, it was excised. Another intraoperative PTH level was drawn from the left anterior jugular vein and this is pending at this time. The left upper parathyroid gland was quite close to the left recurrent laryngeal nerve, which was identified and preserved during the procedure. There was a good signal from this nerve with nerve monitoring throughout the whole procedure. There was also significant inflammation involving the thyroid and central neck tissues. Patient's ultrasound images have been archived into her chart. Due to the nature of this case with uncertainty as to the amount of remaining parathyroid tissue, a decision was made to cryopreserve the resected parathyroid gland(s) (right upper) for storage and potential future auto transplantation. The total time spent performing the cryopreservation preparation portion of the service was 20 minutes. This time was above and beyond the surgical portion of the procedure. DESCRIPTION OF PROCEDURE: Patient was placed supine on the operative table. General endotracheal anesthetic was administered. Neck was positioned in beanbag. Intraoperative neck ultrasound was performed. These images have been archived into the patient's chart. Neck was prepped and draped. A 6 cm incision was made about a fingerbreadth above the sternal notch using a #15-blade. Platysma was divided. Flaps were raised superiorly and inferiorly below the platysma. Midline was entered between the strap muscles. The left side of the neck was initially explored. Left upper parathyroid gland was excised. Intraoperative intact PTH levels were drawn from left anterior jugular vein. Left lower parathyroid gland was identified. Then the right lower and upper parathyroid glands were identified. The right upper gland was excised. Another post excision PTH level was drawn from left anterior jugular vein. Operative site was irrigated and suctioned, hemostasis obtained. The layers were closed with interrupted 4-0 Vicryl stitches. The skin was closed with running 4-0 Monocryl subcuticular stitch. A surgical glue dressing was applied. We turned our attention to the back table, where we performed tissue preparation of the resected parathyroid glands. Under sterile conditions, a portion of each parathyroid gland was minced into 1mm cubes using sharp dissection and placed into individually labelled syringes. The preparation of tissue was performed in the operating room under sterile conditions before the termination of the operative case. The syringes and a sample of autologous blood were then transported to the lab for cryopreservation per published protocol which includes a data sheet with patie (more content not included)... [facility] SURGICAL PATHOLOGYon 023 CASE REPORT [facility] Comment on above: Order Comment: Santii lynne Type: TISSUE SPECIMENOrdering Facility: [facility] Address: [address] [place] [address] Result Comment: Surg ica Pathology Report Case: [id number] Authorizing Provider: Marge Hayes MD Collected: 03/25/2023 09:12 AM Ordering Location: [facility] Surgery Received: 03/25/2023 09:24 AM Pathologist: Monico Olivas MD Intraop: Leeroy Hess MD Specimens: A) - PARATHYROID GLAND LEFT, Left upper totally excised,all submitted B) - PARATHYROID GLAND RIGHT, right upper parathyroid Performed By: #### S ####[facility] LABCLIA [id number] [address] [id number] [address] STATES OF [facility] CLINICAL HISTORY [facility] Comment on above: Order Comment: Margarito batista Type: TISSUE SPECIMENOrdering Facility: [facility] Address: [address] [place] [address] Result Comment: Pre- op diagnosis: Nontoxic multinodular goiter [E04.2] Hyperparathyroidism (HCC) [E21.3] Performed By: #### S ####[facility] LABIA [id number] [address] [id number] [address] FINAL DIAGNOSIS [facility] Comment on above: Order Comment: Margarito batista Type: TISSUE SPECIMENOrdering Facility: [facility] Address: [address] [place] [address] Result Comment: A. L eft upper parathyroid: - Hypercellular parathyroid tissue. - Benign thyroid tissue. B. Right upper parathyroid: - Focally hypercellular parathyroid tissue. Performed By: #### S ####[facility] LABCLIA [id number] [address] LABORATORYCLIA [id number] [address] FINAL PERFORMING LAB [facility] Comment on above: Order Comment: Speci men Type: TISSUE SPECIMENOrdering Facility: [facility] Address: [address] [place] [address] Result Comment: Diag nostic interpretation performed at [facility], [address] [place] [address] CLIA# [id number] [employer] Teacher: Henri Johnson M.D. Performed By: #### S ####[facility] LABCLIA [id number] [address] LABORATORYCLIA [id number] [address] GROSS DESCRIPTION [facility] Comment on above: Order Comment: Speci men Type: TISSUE SPECIMENOrdering Facility: [facility] Address: [address] [place] [address] Result Comment: A. P ARATHYROID GLAND LEFT Labeled: left upper parathyroid gland totally excised, all submitted Received: Fresh Size: 3.5 x 2.8 x 0.5 cm Weight: 2203 mg Cassette code: FSA1: serially sectioned; two exhibit display representative sections submitted Gross examination performed at [facility], [address] [place] [address] CLIA# [id number] B. PARATHYROID GLAND RIGHT Received in formalin, labeled right upper parathyroid, parathyroid gland right is a quarles tissue fragment, measuring 1.1 x 0.4 x 0.3 cm, and weighing 0.082 g. The specimen is entirely submitted in cassette B1. Gross examination performed at [facility], [address] [place] [address] Performed By: #### S ####[facility] LABCLIA [id number] [address] LABORATORYCLIA [id number] [address] [place] INTRAOPERATIVE DIAGNOSIS [facility] Comment on above: Order Comment: Speci men Type: TISSUE SPECIMENOrdering Facility: [facility] Address: [address] [place] [address] Result Comment: A. P ARATHYROID GLAND LEFT FSA1: Hypercellular parathyroid and thyroid tissue. (Dr. Hess) Intraoperative diagnosis performed at [facility], [address] [place] [address] CLIA# [id number] Performed By: #### S ####[facility] LABCLIA [id number] [address] LABORATORYCLIA [id number] [place] [address] [place] US THYROID/PARATHYROID (POC) ENDO USE ONLYon 03-25-2023 [facility] NM PARATHYROID W SPECT/CTon 03-20-2023 NM PARATHYROID W SPECT/CT * * *Final Report* * * DATE OF EXAM: Mar 20 2023 3:49PM LÁZARO 0089 - NM PARATHYROID W SPECT/CT / PROCEDURE REASON: multiple diagnoses * * * * Physician Interpretation * * * * PARATHYROID SCAN HISTORY: Hyperparathyroidism. Left neck parathyroid lesion with cystic degeneration on 02/20/2023 [facility]NA TECHNIQUE: 251 microcuries of 123-I sodium iodide PO, followed by thyroid scan. 31.3 mCi Tc-99m sestamibi was given IV. Planar and SPECT imaging of the neck and chest was performed; anatomic mapping noncontrast CT imaging of the same body region was performed. RESULT: The I-123 images demonstrate mildly heterogeneous with greater uptake in the right thyroid lobe relative left. Subcentimeter right mid-upper thyroid lobe low-attenuation nodule similar in uptake to background parenchyma. 3.4 x 1.7 cm cystic lesion in the left tracheoesophageal groove abutting the posterior inferior aspect of the left thyroid lobe lower pole, presumably corresponding with biopsy proven parathyroid lesion with cystic degeneration. No associated residual post-subtraction sestamibi activity. No other areas of abnormal residual post-subtraction sestamibi activity to suggest sites of abnormal thyroid tissue. Anatomic mapping CT: No acute findings. Left upper lobe granuloma and calcified left hilar lower mediastinal nodes. Thoracic aorta atherosclerosis without aneurysm. IMPRESSION: 3.4 cm cystic lesion in the left tracheoesophageal groove presumably corresponding with previously proven parathyroid lesion with cystic degeneration. No associated post subtraction sestamibi activity. No hypervascular parathyroid lesion identified. Decision Science Analyst: PSCB Transcribe Date/Time: Mar 20 2023 4:28P Dictated by : YANET VU MD This examination was interpreted and the report reviewed and electronically signed by: SAPPHIRE MCGINNIS MD on Mar 20 2023 11:00PM EST [id number] Normal [facility] CALCIUM 24 HR URINEon 2022 Calcium (24H U) [Mass/Time] 70.4 mg/24 hr Low 100.0 - 300.0 mg/24 hr [facility] Period 24 hr [facility] Specimen volume (24H U) 1.[address] [facility] CREATININE 24 HR URon 2022 Creatinine (24H U) [Mass/Time] 0.696 g/24 hr Low 0.800 - 1.800 g/24 hr [facility] Period 24 hr [facility] Specimen volume (24H U) 1.6 L C leveland Clinic DXA-AXIAL SKELETON WITH VFAo n 03-18-2023 [facility] Calcium.ionized [Moles/Vol]o n 02-20-2023 Calcium.ionized (Bld) [Mass/Vol] 1.33 mmol/L High 1.08 - 1.30 mmol/L [facility] Calcium.ionized adjusted to pH 7.4 (Bld) [Moles/Vol] 1.34 mmol/L High 1.08 - 1.30 mmol/L [facility] PTH INTACT BLDon 02-20-2023 Parathyrin.intact [Mass/Vol] 155 pg/mL High 15 - 65 pg/mL [facility] XR Hand - bilateral PA and L ateral and Obliqueon 11-16-2022 IMPRESSION: Severe degenerative changes of the fingers. Decision Science Analyst: PSCB Transcribe Date/Time: Nov 16 2022 5:24P Dictated by : GEETHA LI MD This examination was interpreted and the report reviewed and electronically signed by: GEETHA LI MD on Nov 16 2022 5:24PM [facility] DIVISION OF RADIOLOGY * * *Final Report* * * DATE OF EXAM: Nov 15 2022 12:56PM WOX [id number] - XR HAND 3V PA/LAT/OBL ASIM / PROCEDURE REASON: multiple diagnoses * * * * Physician Interpretation * * * * EXAMINATION: XR HAND 3V PA/LAT/OBL ASIM HISTORY: PT STS IN FOR PAIN TO LEFT HAND 3RD DIGIT. PAIN TO RT HAND RING FINGER. NO PRV SX TO EITHER. Swelling of left middle finger Pain involving joint of finger of right hand . TECHNIQUE: XR HAND 3V PA/LAT/OBL ASIM Laterality: BILATERAL Number of different views (projections): 3 M: XB_1 COMPARISON: RESULT: Severe interphalangeal degenerative changes of the finger DIP joint and less so at the PIP joints. Mild thumb interphalangeal degenerative changes. There are severe degenerative changes at the first CMC joints bilaterally. No chondrocalcinosis. No acute fracture or dislocation. There are no bony erosions. DIVISION OF RADIOLOGY Provider, [facility] - 11/16/2022 * * *Final Report* * * DATE OF EXAM: Nov 15 2022 12:56PM WOX 5556 - XR HAND 3V PA/LAT/OBL ASIM / PROCEDURE REASON: multiple diagnoses * * * * Physician Interpretation * * * * EXAMINATION: XR HAND 3V PA/LAT/OBL ASIM HISTORY: PT STS IN FOR PAIN TO LEFT HAND 3RD DIGIT. PAIN TO RT HAND RING FINGER. NO PRV SX TO EITHER. Swelling of left middle finger Pain involving joint of finger of right hand . TECHNIQUE: XR HAND 3V PA/LAT/OBL ASIM Laterality: BILATERAL Number of different views (projections): 3 M: XB_1 COMPARISON: RESULT: Severe interphalangeal degenerative changes of the finger DIP joint and less so at the PIP joints. Mild thumb interphalangeal degenerative changes. There are severe degenerative changes at the first CMC joints bilaterally. No chondrocalcinosis. No acute fracture or dislocation. There are no bony erosions. IMPRESSION IMPRESSION: Severe degenerative changes of the fingers. Decision Science Analyst: PSCB Transcribe Date/Time: Nov 16 2022 5:24P Dictated by : GEETHA LI MD This examination was interpreted and the report reviewed and electronically signed by: GEETHA LI MD on Nov 16 2022 5:24PM EST [facility] XR Hand - bilateral PA and L ateral and ObliqueOrdered By: [facility] Provider on 11-16-2022 [facility] XR Hand - bilateral PA and L ateral and Obliqueon 11-15-2022 Radiology Study observation (narrative) [facility] CT NECK SOFT TISSUE W IVCONo n 10-25-2022 Radiology Result ACTIONABLE Abnormal [facility] SURGICAL PATHOLOGYon 022 Case Report Surgical Pathology Report Case: [id number] Authorizing Provider: Chencho Urbina MD Collected: 09/20/2021 12:23 PM Ordering Location: [facility] Received: 09/20/2021 01:00 PM Pathologist: Dionicio Rowley MD Specimen: SKIN EXCISION [facility] Clinical History non-healing lesion suspecious for SCC [facility] Diagnosis Comment The peripheral az[place] ns are negative for tumor. Continued clinical follow up is recommended. [facility] FINAL DIAGNOSIS A. 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 SDB/tg 09/21/2021 [facility] Gross Description A. SKIN EXCISION. Received in formalin is an unoriented elliptical segment of skin and subcutaneous tissue measuring 1.2 x 0.7 x 0.3 cm. The skin surface demonstrates an irregular quarles slightly wrinkled area measuring 0.7 x 0.6 cm, and extends to the nearest margin. The marigns are inked black. The specimen is sectioned and totally submitted as follows: A1 tips, A2 remainder of tissue. Gross examination performed at [facility], [address] [place] [id number] FFS 09/20/2021 11:36 PM [facility] Performing Lab Diagnostic interpretation performed at [facility], [facility] [place] [id number] CLIA# [id number] [employer] Teacher: Henri Johnson M.D. [facility] Vital Signs Date Time Vital Sign Value Performing Clinician Facility 10-07-2024 13:05-0400 Body height 157.5 cm Chencho Urbina MD Work Phone: [facility] 10-07-2024 13:05-0400 Body mass index (BMI) [Ratio] 25.79 kg/m2 Chencho Urbina MD Work Phone: [facility] 10-07-2024 13:05-0400 Body weight 63.96 kg Chnecho Urbina MD Work Phone: [facility] 10-07-2024 13:05-0400 Diastolic blood pressure 84 mm[Hg] Chencho Urbina MD Work Phone: [facility] 10-07-2024 13:05-0400 Heart rate 69 /min Chencho Urbina MD Work Phone: [facility] 10-07-2024 13:05-0400 Respiratory rate 18 /min Chencho Urbina MD Work Phone: [facility] 10-07-2024 13:05-0400 Systolic blood pressure 132 mm[Hg] Chencho Urbina MD Work Phone: [facility] 09-24-2024 09:23-0400 Diastolic blood pressure 80 mm[Hg] Elisa Doherty APRN.SITE ADMINISTRATOR Work Phone: [facility] 09-24-2024 09:23-0400 Systolic blood pressure 132 mm[Hg] Elisa Doherty APRN.SITE ADMINISTRATOR Work Phone: [facility] 09-24-2024 09:12-0400 Body mass index (BMI) [Ratio] 24.39 kg/m2 Elisa Doherty APRN.SITE ADMINISTRATOR Work Phone: [facility] 09-24-2024 09:12-0400 Body weight 64 kg Elisa Doherty APRN.SITE ADMINISTRATOR Work Phone: [facility] 09-24-2024 09:12-0400 Heart rate 80 /min Elisa Doherty APRN.SITE ADMINISTRATOR Work Phone: [facility] 09-02-2024 14:44-0400 Diastolic blood pressure 101 mm[Hg] Chencho Urbina MD Work Phone: [facility] 09-02-2024 14:44-0400 Heart rate 81 /min Chencho Urbina MD Work Phone: [facility] 09-02-2024 14:44-0400 Systolic blood pressure 169 mm[Hg] Chencho Urbina MD Work Phone: [facility] 09-02-2024 14:32-0400 Body mass index (BMI) [Ratio] 24.72 kg/m2 Chencho Urbina MD Work Phone: [facility] 09-02-2024 14:32-0400 Body weight 64.86 kg Chencho Urbina MD Work Phone: [facility] 09-02-2024 14:32-0400 Respiratory rate 18 /min Chencho Urbina MD Work Phone: [facility] 08-17-2024 12:54-0400 Body mass index (BMI) [Ratio] 24.89 kg/m2 Jean Jara ACID LOADER.SITE ADMINISTRATOR Work Phone: [facility] 08-17-2024 12:54-0400 Body weight 65.32 kg Jean Jara ACID LOADER.SITE ADMINISTRATOR Work Phone: [facility] 08-17-2024 12:54-0400 Diastolic blood pressure 90 mm[Hg] Jean Jara ACID LOADER.SITE ADMINISTRATOR Work Phone: [facility] 08-17-2024 12:54-0400 Heart rate 99 /min Jean Jara ACID LOADER.SITE ADMINISTRATOR Work Phone: [facility] 08-17-2024 12:54-0400 Respiratory rate 16 /min Jean Jara ACID LOADER.SITE ADMINISTRATOR Work Phone: [facility] 08-17-2024 12:54-0400 SaO2% (BldA) [Mass fraction] 97 % Jean Jara ACID LOADER.SITE ADMINISTRATOR Work Phone: [facility] 08-17-2024 12:54-0400 Systolic blood pressure 140 mm[Hg] Jean Jara APRN.SITE ADMINISTRATOR Work Phone: [facility] 06-15-2024 13:13-0500 Diastolic blood pressure 92 mm[Hg] Cassandra Arshad PA-C Work Phone: [facility] Comment on above: bp average with machine 06-15-2024 13:13-0500 Heart rate 76 /min Cassandra Arshad PA-C Work Phone: [facility] 06-15-2024 13:13-0500 Systolic blood pressure 154 mm[Hg] Cassandra Arshad PA-C Work Phone: [facility] Comment on above: bp average with machine 06-15-2024 13:00-0500 Body mass index (BMI) [Ratio] 24.54 kg/m2 Cassandra Arshad PA-C Work Phone: [facility] 06-15-2024 13:00-0500 Body temperature 98.91 [degF] Cassandra Arshad PA-C Work Phone: [facility] 06-15-2024 13:00-0500 Body weight 64.41 kg Cassandra Arshad PA-C Work Phone: [facility] 06-15-2024 13:00-0500 Respiratory rate 16 /min Cassandra Arshad PA-C Work Phone: [facility] 06-15-2024 13:00-0500 SaO2% (BldA) [Mass fraction] 97 % Cassandra Arshad PA-C Work Phone: [facility] 06-08-2024 15:35-0500 Body mass index (BMI) [Ratio] 24.02 kg/m2 Elisa Doherty APRN.SITE ADMINISTRATOR Work Phone: [facility] 06-08-2024 15:35-0500 Body temperature 99.1 [degF] Elisa Doherty APRN.SITE ADMINISTRATOR Work Phone: [facility] 06-08-2024 15:35-0500 Body weight 63.05 kg Elisa Doherty APRN.SITE ADMINISTRATOR Work Phone: [facility] 06-08-2024 15:35-0500 Diastolic blood pressure 89 mm[Hg] Elisa Doherty ACID LOADER.SITE ADMINISTRATOR Work Phone: [facility] 06-08-2024 15:35-0500 Heart rate 78 /min Elisa Doherty ACID LOADER.SITE ADMINISTRATOR Work Phone: [facility] 06-08-2024 15:35-0500 SaO2% (BldA) [Mass fraction] 98 % Elisa Doherty ACID LOADER.SITE ADMINISTRATOR Work Phone: [facility] 06-08-2024 15:35-0500 Systolic blood pressure 152 mm[Hg] Elisa Doherty ACID LOADER.SITE ADMINISTRATOR Work Phone: [facility] 05-04-2024 10:50-0500 Diastolic blood pressure 89 mm[Hg] Cassandra Arshad PA-C Work Phone: [facility] Comment on above: Samm BP average 05-04-2024 10:50-0500 Heart rate 71 /min Cassandra Arshad PA-C Work Phone: [facility] Comment on above: Samm BP Average 05-04-2024 10:50-0500 Systolic blood pressure 161 mm[Hg] Cassandra Arshad PA-C Work Phone: [facility] Comment on above: Samm BP average 05-04-2024 10:00-0500 Body mass index (BMI) [Ratio] 24.2 kg/m2 Cassandra Arshad PA-C Work Phone: [facility] 05-04-2024 10:00-0500 Body temperature 98.1 [degF] Cassandra Arshad PA-C Work Phone: [facility] 05-04-2024 10:00-0500 Body weight 63.5 kg Cassandra Arshad PA-C Work Phone: [facility] 05-04-2024 10:00-0500 Respiratory rate 16 /min Cassandra Arshad PA-C Work Phone: [facility] 04-29-2024 13:07-0500 Body mass index (BMI) [Ratio] 24.61 kg/m2 Dianne Podlogar ACID LOADER.SITE ADMINISTRATOR Work Phone: [facility] 04-29-2024 13:07-0500 Body temperature 98.29 [degF] Dianne Podlogar ACID LOADER.SITE ADMINISTRATOR Work Phone: [facility] 04-29-2024 13:07-0500 Body weight 64.6 kg Dianne Podlogar ACID LOADER.SITE ADMINISTRATOR Work Phone: [facility] 04-29-2024 13:07-0500 Diastolic blood pressure 88 mm[Hg] Dianne Podlogar ACID LOADER.SITE ADMINISTRATOR Work Phone: [facility] 04-29-2024 13:07-0500 Heart rate 80 /min Dianne Podlogar ACID LOADER.SITE ADMINISTRATOR Work Phone: [facility] 04-29-2024 13:07-0500 Respiratory rate 16 /min Dianne Podlogar ACID LOADER.SITE ADMINISTRATOR Work Phone: [facility] 04-29-2024 13:07-0500 SaO2% (BldA) [Mass fraction] 96 % Podlogar ACID LOADER.SITE ADMINISTRATOR Work Phone: [facility] 04-29-2024 13:07-0500 Systolic blood pressure 133 mm[Hg] Dianne Podlogar ACID LOADER.SITE ADMINISTRATOR Work Phone: [facility] 03-25-2024 12:35-0400 Body mass index (BMI) [Ratio] 24.89 kg/m2 Cassandra Arshad PA-C Work Phone: [facility] 03-25-2024 12:35-0400 Body temperature 98.6 [degF] Cassandra RUVALCABA-C Work Phone: [facility] 03-25-2024 12:35-0400 Body weight 65.32 kg Cassandra RUVALCABA-C Work Phone: [facility] 03-25-2024 12:35-0400 Diastolic blood pressure 80 mm[Hg] Cassandra RUVALCABA-C Work Phone: [facility] 03-25-2024 12:35-0400 Heart rate 90 /min Cassandra Arshad PA-C Work Phone: [facility] 03-25-2024 12:35-0400 Respiratory rate 16 /min Cassandra Arshad PA-C Work Phone: [facility] 03-25-2024 12:35-0400 SaO2% (BldA) [Mass fraction] 97 % Cassandra Arshad PA-C Work Phone: [facility] 03-25-2024 12:35-0400 Systolic blood pressure 124 mm[Hg] Cassandra Arshad PA-C Work Phone: [facility] 02-26-2024 17:13-0400 Body mass index (BMI) [Ratio] 25.58 kg/m2 Chencho Urbina MD Work Phone: [facility] 02-26-2024 17:13-0400 Body weight 67.13 kg Chencho Urbina MD Work Phone: [facility] 02-26-2024 17:13-0400 Diastolic blood pressure 70 mm[Hg] Chencho Urbina MD Work Phone: [facility] 02-26-2024 17:13-0400 Heart rate 76 /min Chencho Urbina MD Work Phone: [facility] 02-26-2024 17:13-0400 Respiratory rate 16 /min Chencho Urbina MD Work Phone: [facility] 02-26-2024 17:13-0400 Systolic blood pressure 126 mm[Hg] Chencho Urbina MD Work Phone: [facility] 02-20-2024 08:54-0400 Diastolic blood pressure 48 mm[Hg] Chencho Urbina MD Work Phone: [facility] 02-20-2024 08:54-0400 Systolic blood pressure 76 mm[Hg] Chencho Urbina MD Work Phone: [facility] 02-20-2024 08:38-0400 Heart rate 77 /min Chencho Urbina MD Work Phone: [facility] 02-20-2024 08:38-0400 Respiratory rate 16 /min Chencho Urbina MD Work Phone: [facility] 02-20-2024 08:38-0400 SaO2% (BldA) [Mass fraction] 99 % Chencho Urbina MD Work Phone: [facility] 09-24-2023 10:19-0400 Body height 162 cm Cassandra Arshad PA-C Work Phone: [facility] 09-24-2023 10:19-0400 Body temperature 98.4 [degF] Cassandra Arshad PA-C Work Phone: [facility] 09-24-2023 10:19-0400 Body weight 68.49 kg Cassandra Arshad PA-C Work Phone: [facility] 09-24-2023 10:19-0400 Diastolic blood pressure 76 mm[Hg] Cassandra Arshad PA-C Work Phone: [facility] 09-24-2023 10:19-0400 Heart rate 68 /min Cassandra Arshad PA-C Work Phone: [facility] 09-24-2023 10:19-0400 Respiratory rate 18 /min Cassandra Arshad PA-C Work Phone: [facility] 09-24-2023 10:19-0400 SaO2% (BldA) [Mass fraction] 97 % Cassandra Arshad PA-C Work Phone: [facility] 09-24-2023 10:19-0400 Systolic blood pressure 118 mm[Hg] Cassandra Arshad PA-C Work Phone: [facility] 05-16-2023 08:24-0500 Body height 157.5 cm Kierra Alfaro MD Work Phone: [facility] 05-16-2023 08:240500 Body weight 67.4 kg Kierra Alfaro MD Work Phone: [facility] 05-16-2023 08:24-0500 Diastolic blood pressure 81 mm[Hg] Kierra Alfaro MD Work Phone: [facility] 05-16-2023 08:24-0500 Heart rate 64 /min Kierra Alfaro MD Work Phone: [facility] 05-16-2023 08:24-0500 Respiratory rate 16 /min Kierra Alfaro MD Work Phone: [facility] 05-16-2023 08:24-0500 SaO2% (BldA) [Mass fraction] 100 % Kierra Alfaro MD Work Phone: [facility] 05-16-2023 08:24-0500 Systolic blood pressure 125 mm[Hg] Kierra Alfaro MD Work Phone: [facility] 03-22-2023 10:43-0400 Body weight 66.22 kg Chencho Urbina MD Work Phone: [facility] 03-22-2023 10:43-0400 Diastolic blood pressure 76 mm[Hg] Chencho Urbina MD Work Phone: [facility] 03-22-2023 10:43-0400 Heart rate 60 /min Chencho Urbina MD Work Phone: [facility] 03-22-2023 10:43-0400 Respiratory rate 14 /min Chencho Urbina MD Work Phone: [facility] 03-22-2023 10:43-0400 Systolic blood pressure 120 mm[Hg] Chencho Urbina MD Work Phone: [facility] 02-20-2023 11:11-0400 Body height 160 cm Marge Hayes MD Work Phone: [facility] 02-20-2023 11:11-0400 Body weight 65.77 kg Marge Hayes MD Work Phone: [facility] 02-20-2023 11:11-0400 Diastolic blood pressure 77 mm[Hg] Marge Hayes MD Work Phone: [facility] 02-20-2023 11:11-0400 Heart rate 74 /min Marge Hayes MD Work Phone: [facility] 02-20-2023 11:11-0400 Systolic blood pressure 157 mm[Hg] Marge Hayes MD Work Phone: [facility] 11-23-2022 10:27-0400 Body temperature 98.2 [degF] Elisa Doherty ACID LOADER.SITE ADMINISTRATOR Work Phone: [facility] 11-23-2022 10:27-0400 Body weight 62.69 kg Elisa Doherty ACID LOADER.SITE ADMINISTRATOR Work Phone: [facility] 11-23-2022 10:27-0400 Diastolic blood pressure 68 mm[Hg] Elisa Doherty ACID LOADER.SITE ADMINISTRATOR Work Phone: [facility] 11-23-2022 10:27-0400 Heart rate 61 /min Elisa Doherty ACID LOADER.SITE ADMINISTRATOR Work Phone: [facility] 11-23-2022 10:27-0400 Respiratory rate 16 /min Elisa Doherty ACID LOADER.SITE ADMINISTRATOR Work Phone: [facility] 11-23-2022 10:27-0400 SaO2% (BldA) [Mass fraction] 98 % Elisa Doherty ACID LOADER.SITE ADMINISTRATOR Work Phone: [facility] 11-23-2022 10:27-0400 Systolic blood pressure 120 mm[Hg] Elisa Doherty ACID LOADER.SITE ADMINISTRATOR Work Phone: [facility] 11-13-2022 13:01-0400 Body height 160 cm Pablo Keyes MD Work Phone: [facility] 11-13-2022 13:01-0400 Body temperature 97.59 [degF] Pablo Keyes MD Work Phone: [facility] 11-13-2022 13:01-0400 Body weight 63.05 kg Pablo Keyes MD Work Phone: [facility] 11-13-2022 13:01-0400 Diastolic blood pressure 71 mm[Hg] Pablo Keyes MD Work Phone: [facility] 11-13-2022 13:01-0400 Heart rate 71 /min Pablo Keyes MD Work Phone: [facility] 11-13-2022 13:01-0400 Respiratory rate 14 /min Pablo Keyes MD Work Phone: [facility] 11-13-2022 13:01-0400 SaO2% (BldA) [Mass fraction] 99 % Pablo Keyes MD Work Phone: [facility] 11-13-2022 13:01-0400 Systolic blood pressure 131 mm[Hg] Pablo Keyes MD Work Phone: [facility] 09-28-2022 08:00-0400 Body height 160 cm Pulm Wstr Work Phone: [facility] 09-28-2022 08:00-0400 Body weight 63.5 kg Pulm Wstr Work Phone: [facility] 09-28-2022 08:00-0400 Heart rate 65 /min Pulm Wstr Work Phone: [facility] 09-28-2022 08:00-0400 Respiratory rate 12 /min Pulm Wstr Work Phone: [facility] 09-28-2022 08:00-0400 SaO2% (BldA) [Mass fraction] 97 % Pulm Wstr Work Phone: [facility] 09-20-2022 09:39-0400 Body height 160 cm Chencho Urbina MD Work Phone: [facility] 09-20-2022 09:39-0400 Body weight 63.05 kg Chencho Urbina MD Work Phone: [facility] 09-20-2022 09:39-0400 Diastolic blood pressure 84 mm[Hg] Chencho Urbina MD Work Phone: [facility] 09-20-2022 09:39-0400 Heart rate 70 /min Chencho Urbina MD Work Phone: [facility] 09-20-2022 09:39-0400 Respiratory rate 14 /min Chencho Urbina MD Work Phone: [facility] 09-20-2022 09:39-0400 Systolic blood pressure 132 mm[Hg] Chencho Urbina MD Work Phone: [facility] 07-25-2022 12:33-0500 Body weight 63.05 kg Cassandra Arshad PA-C Work Phone: [facility] 07-25-2022 12:33-0500 Diastolic blood pressure 68 mm[Hg] Cassandra Arshad PA-C Work Phone: [facility] 07-25-2022 12:33-0500 Heart rate 86 /min Cassandra Arshad PA-C Work Phone: [facility] 07-25-2022 12:33-0500 Respiratory rate 16 /min Cassandra Arshad PA-C Work Phone: [facility] 07-25-2022 12:33-0500 SaO2% (BldA) [Mass fraction] 100 % Cassandra Arshad PA-C Work Phone: [facility] 07-25-2022 12:33-0500 Systolic blood pressure 126 mm[Hg] Cassandra Arshad PA-C Work Phone: [facility] 06-27-2022 13:41-0500 Body weight 64.23 kg Cassandra Arshad PA-C Work Phone: [facility] 06-27-2022 13:41-0500 Diastolic blood pressure 78 mm[Hg] Cassandra Arshad PA-C Work Phone: [facility] 06-27-2022 13:41-0500 Heart rate 64 /min Cassandra Arshad PA-C Work Phone: [facility] 06-27-2022 13:41-0500 Respiratory rate 16 /min Cassandra Arshad PA-C Work Phone: [facility] 06-27-2022 13:41-0500 SaO2% (BldA) [Mass fraction] 96 % Cassandra Arshad PA-C Work Phone: [facility] 06-27-2022 13:41-0500 Systolic blood pressure 126 mm[Hg] Cassandra Arshad PA-C Work Phone: [facility] 03-15-2022 08:56-0400 Body temperature 97.5 [degF] Cassandrasierra Arshad PA-C Work Phone: [facility] 03-15-2022 08:56-0400 Body weight 66.68 kg Cassandrasierra Arshad PA-C Work Phone: [facility] 03-15-2022 08:56-0400 Diastolic blood pressure 70 mm[Hg] Cassandra Arshad PA-C Work Phone: [facility] 03-15-2022 08:56-0400 Heart rate 72 /min Cassandra Arshad PA-C Work Phone: [facility] 03-15-2022 08:56-0400 Respiratory rate 18 /min Cassandrasierra Arshad PA-C Work Phone: [facility] 03-15-2022 08:56-0400 Systolic blood pressure 110 mm[Hg] Cassandra Arshad PA-C Work Phone: [facility] 09-20-2021 11:31-0400 Body weight 66.68 kg Chencho Urbina MD Work Phone: [facility] 09-20-2021 11:31-0400 Diastolic blood pressure 76 mm[Hg] Chencho Urbina MD Work Phone: [facility] 09-20-2021 11:31-0400 Heart rate 72 /min Chencho Urbina MD Work Phone: [facility] 09-20-2021 11:31-0400 Systolic blood pressure 126 mm[Hg] Chencho Urbina MD Work Phone: [facility] 09-01-2021 08:56-0400 Body weight 65.77 kg Chencho Urbina MD Work Phone: [facility] 09-01-2021 08:56-0400 Diastolic blood pressure 64 mm[Hg] Chencho Urbina MD Work Phone: [facility] 09-01-2021 08:56-0400 Heart rate 66 /min Chencho Urbina MD Work Phone: [facility] 09-01-2021 08:56-0400 Respiratory rate 14 /min Chencho Urbina MD Work Phone: [facility] 09-01-2021 08:56-0400 Systolic blood pressure 130 mm[Hg] Chencho Urbina MD Work Phone: [facility] Encounters Encounter Date Encounter Type Care Provider Facility Start: 11-10-2024 End: 11-10-2024 Refill Chencho Urbina MD Work Phone: [facility] Comment on above: Refill Request Start: 10-28-2024 End: 10-28-2024 ambulatory CHENCHO URBINA Facility:[facility] Start: 10-23-2024 End: 10-23-2024 Telephone encounter Cassandra Arshad PA-C Work Phone: [facility] Comment on above: Results Start: 10-22-2024 End: 10-22-2024 Chart abstracting Lana Schwartz MA [facility] Comment on above: Consult (Urology ) Start: 10-21-2024 End: 10-21-2024 Chart abstracting Chencho Urbina MD Work Phone: [facility] Comment on above: Outside Start: 10-21-2024 End: 10-21-[address] Chencho Urbina MD Work Phone: [facility] Start: 10-21-2024 End: 10-21-2024 Departed Referred Chencho Urbina MD -[facility] Work Phone: Start: 10-21-2024 End: 10-21-2024 ambulatory Chencho MILLER Facility:[facility] Start: 10-16-2024 End: 10-16-2024 Telephone encounter Chencho Urbina MD Work Phone: [facility] Start: 10-07-2024 End: 10-07-2024 Patient encounter procedure Chencho Urbina MD Work Phone: [facility] Comment on above: Medicare annual well ness visit, subsequent (Primary Dx); Essential hypertension; Mixed hyperlipidemia; Elevated fasting blood sugar; GERD without esophagitis; Iron deficiency anemia, unspecified iron deficiency anemia type; Nonruptured cerebral aneurysm (HCC); Primary hyperparathyroidism (HCC); Thyroid nodule; Stage 3b chronic kidney disease (HCC); Carotid stenosis, asymptomatic, bilateral; Current mild episode of major depressive disorder without prior episode; Situational depression; Malignant neoplasm of colon, unspecified part of colon (HCC); Hypomagnesemia; Age-related osteoporosis without current pathological fracture; Benign paroxysmal positional vertigo, unspecified laterality; Advance directive discussed with patient; Encounter for screening examination for other mental health and behavioral disorders; Need for vaccination; Hyponatremia; RLS (restless legs syndrome) Start: 10-07-2024 End: 10-07-2024 ambulatory CHENCHO URBINA Facility:[facility] Start: 10-06-2024 End: 10-06-2024 [facility] CHENCHO URBINA Facility:[facility] Start: 09-30-2024 End: 09-30-2024 Telephone encounter Chencho Urbina MD Work Phone: [facility] Comment on above: Results Start: 09-28-2024 End: 09-28-2024 Departed Referred Chencho Urbina MD -[facility] Work Phone: Start: 09-28-2024 End: 09-28-2024 ambulatory Chencho Urbina [facility] Facility:[facility] Start: 09-24-2024 End: 09-24-2024 Patient encounter procedure Elisa Doherty APRN.CNP Work Phone: [facility] Comment on above: Essential hypertensi on (Primary Dx); RLS (restless legs syndrome); Situational depression Start: 09-24-2024 End: 09-24-2024 ambulatory CHENCHO URBINA Facility:[facility] Start: 09-15-2024 End: 09-18-2024 Telephone encounter Chencho Urbina MD Work Phone: [facility] Comment on above: Forms Start: 09-09-2024 End: 11-09-2024 Follow-up encounter Ashutosh Banda MD Work Phone: [facility] Start: 09-02-2024 End: 09-02-2024 ambulatory CHENCHO URBINA Facility:[facility] Start: 09-02-2024 End: 09-02-2024 Subsequent hospital visit by physician Maria De Jesus [facility] Work Phone: Radiology Comment on above: Chronic pain of both knees [M25.561, M25.562, G89.29] Start: 09-02-2024 End: 09-02-2024 ambulatory CHENCHO URBINA Facility:[facility] Start: 09-02-2024 End: 09-02-2024 Patient encounter procedure [facility]ina [facility] Comment on above: Essential hypertensi on (Primary Dx); Dizziness; Carotid stenosis, asymptomatic, bilateral; Bilateral leg edema; Bilateral calf pain; Diminished pulses in lower extremity; RLS (restless legs syndrome); Chronic pain of both knees; Urgency of micturition; Dribbling of urine; Frequent UTI; Current mild episode of major depressive disorder without prior episode Start: 08-29-2024 End: 08-29-2024 ambulatory CHENCHO URBINA Facility:[facility] Start: 08-28-2024 End: 08-28-2024 Telephone encounter Chencho Urbina MD Work Phone: [facility] Comment on above: Patient Update; Appo intment Start: 08-19-2024 End: 08-20-2024 Follow-up encounter Jean Jara APRN.CNP Work Phone: [facility] Start: 08-17-2024 End: 08-17-2024 ambulatory CHENCHO URBINA Facility:[facility] Start: 08-17-2024 End: 08-17-2024 Office outpatient visit 25 minutes Jean Jara APRN.SITE ADMINISTRATOR [facility] Comment on above: UTI symptoms (Primar y Dx); Musculoskeletal disorder involving upper trapezius muscle; Tension headache Start: 07-30-2024 End: 07-30-2024 Follow-up encounter Cassandra Arshad PA-C Work Phone: [facility] Start: 07-29-2024 End: 07-29-2024 [facility] Facility:[facility] Start: 07-06-2024 End: 07-07-2024 Telephone encounter Cassandra Arshad PA-C Work Phone: [facility] Comment on above: Results Start: 06-26-2024 End: 06-26-2024 Telephone encounter Cassandra Arshad PA-C Work Phone: [facility] Comment on above: Results Start: 06-24-2024 End: 06-24-2024 ambulatory [facility] Facility:[facility] Start: 06-24-2024 End: 06-24-2024 Subsequent hospital visit by physician [facility] Work Phone: Radiology Comment on above: Microscopic hematuri a [R31.29] Start: 06-18-2024 End: 06-18-2024 Telephone encounter Cassandra Arshad PA-C Work Phone: [facility] Start: 06-15-2024 End: 06-15-2024 [facility] Facility:[facility] Start: 06-15-2024 End: 06-15-2024 Office outpatient visit 25 minutes Cassandra Arshad PA-C Work Phone: [facility] Comment on above: Essential hypertensi on (Primary Dx); Urinary frequency Start: 06-08-2024 End: 06-08-2024 Patient encounter procedure Elisa Doherty ACID LOADER.SITE ADMINISTRATOR Work Phone: [facility] Comment on above: UTI symptoms (Primar y Dx); Bacterial sinusitis Start: 06-08-2024 End: 06-08-2024 [facility] Facility:[facility] Start: 05-12-2024 End: 05-12-2024 Telephone encounter Cassandra Arshad PA-C Work Phone: [facility] Comment on above: Patient Update Start: 05-11-2024 End: 06-25-2024 Telephone encounter Libertad Mckeon MD Work Phone: Radiology Comment on above: Orders Start: 05-04-2024 End: 05-04-2024 Patient encounter procedure Cassandra Arshad PA-C Work Phone: [facility] Comment on above: Sciatica of right si de (Primary Dx); Essential hypertension Start: 05-04-2024 End: 05-04-2024 ambulatory CHENCHO URBINA Facility:[facility] Start: 05-01-2024 End: 05-01-2024 Telephone encounter Dianne Podlogdiego ACID LOADER.SITE ADMINISTRATOR Work Phone: [facility] Comment on above: Results Start: 04-29-2024 End: 04-29-2024 Telephone encounter Chencho Urbina MD Work Phone: [facility] Comment on above: Patient Update Start: 04-29-2024 End: 04-29-2024 Patient encounter procedure Dianne Podlogdiego ACID LOADER.SITE ADMINISTRATOR Work Phone: [facility] Comment on above: UTI symptoms (Primar y Dx) Start: 04-29-2024 End: 04-29-2024 ambulatory DIANNE PODLOGAR Facility:[facility] Start: 04-03-2024 End: 04-03-2024 Telephone encounter Chencho Urbina MD Work Phone: [facility] Comment on above: Fax Request Start: 03-26-2024 End: 03-26-2024 Telephone encounter Cassandra Arshad PA-C Work Phone: [facility] Comment on above: Results Start: 03-25-2024 End: 03-26-2024 Telephone encounter Chencho Urbina MD Work Phone: [facility] Comment on above: Medication Problem Start: 03-25-2024 End: 03-25-2024 Office outpatient visit 25 minutes Cassandra Arshad PA-C Work Phone: [facility] [place] Comment on above: Essential hypertensi on (Primary Dx); Encounter for immunization; Bruising; Hair loss; Mixed hyperlipidemia; GERD without esophagitis; Stage 3b chronic kidney disease (HCC); Elevated fasting blood sugar; Primary hyperparathyroidism (HCC); Iron deficiency anemia, unspecified iron deficiency anemia type; Age-related osteoporosis without current pathological fracture; Carotid stenosis, asymptomatic, bilateral; Nontoxic multinodular goiter; Medication management Start: 03-25-2024 End: 03-25-2024 ambulatory CHENCHO URBINA Facility:[facility] Start: 03-17-2024 End: 03-17-2024 Telephone encounter Elisa Doherty APRN.CNP Work Phone: [facility] Comment on above: Results Start: 03-17-2024 End: 03-17-2024 Admission to same day surgery center Libertad Mckeon MD Work Phone: Endocrinology Comment on above: Primary hyperparathy roidism (HCC) (Primary Dx); History of parathyroid surgery; Age-related osteoporosis without current pathological fracture Start: 03-17-2024 End: 03-17-2024 Telemedicine consultation with patient Libertad Mckeon MD Work Phone: Endocrinology Start: 03-17-2024 End: 03-17-2024 ambulatory [facility] Facility:[facility] Start: 03-16-2024 End: 03-16-2024 Home visit Chencho Urbina MD Work Phone: [facility] Comment on above: Fracture of pubic tu bercle, right, with routine healing, subsequent encounter (Primary Dx) Start: 03-16-2024 End: 03-16-2024 ambulatory CHENCHO URBINA Facility:[facility] Start: 03-16-2024 End: 03-16-2024 Patient encounter procedure Jonny Suero MD Work Phone: Orthopaedics Comment on above: Multiple closed frac tures of pelvis without disruption of pelvic ring, initial encounter (HCC) Start: 03-16-2024 End: 03-16-2024 ambulatory CHENCHO A CIARA Facility:[facility] Start: 03-16-2024 End: 03-16-2024 Subsequent hospital visit by physician Maria De Jesus [facility] [place] Work Phone: Radiology Comment on above: Multiple closed frac tures of pelvis without disruption of pelvic ring, initial encounter (HCC) [S32.82XA] Start: 03-11-2024 End: 03-11-2024 ambulatory Kaity Quintero RN Work Phone: [employer] Start: 03-11-2024 End: 03-11-2024 Telephone encounter Chencho Urbina MD Work Phone: [facility] [place] Comment on above: [facility], PT plan of c are Start: 03-11-2024 End: 03-11-2024 Telephone follow-up Kaity Quintero RN Work Phone: [employer] Comment on above: Transition Of Care ( [facility] Follow-up Day 24) Started Weekly phone contact (Recurring) for Transitional Care Management Start: 03-10-2024 End: 03-10-2024 Orders Only Jonny Suero MD Work Phone: Orthopaedics Comment on above: Multiple closed frac tures of pelvis without disruption of pelvic ring, initial encounter (HCC) (Primary Dx) Start: 03-04-2024 End: 03-04-2024 ambulatory Kaity Quintero RN Work Phone: [employer] Start: 03-04-2024 End: 03-04-2024 Telephone follow-up Kaity Quintero RN Work Phone: [employer] Comment on above: Transition Of Care ( [facility] Follow-up Day 17) Started Weekly phone contact (Recurring) for Transitional Care Management Start: 03-03-2024 End: 03-06-2024 Telephone encounter Eilsa Doherty APRN.CNP Work Phone: [facility] Comment on above: Results Start: 03-02-2024 End: 03-02-2024 ambulatory CHENCHO URBINA Facility:[facility] Start: 02-26-2024 End: 02-26-2024 ambulatory CHENCHO URBINA Facility:[facility] Start: 02-26-2024 End: 02-26-2024 Patient encounter procedure Chencho Urbina MD Work Phone: [facility] Comment on above: Essential hypertensi on (Primary Dx); Cough, unspecified type; Hyponatremia; Need for vaccination Start: 02-23-2024 End: 02-24-2024 Telephone encounter Chencho Urbina MD Work Phone: [facility] Comment on above: Results Start: 02-20-2024 End: 02-20-2024 Telephone encounter Chencho Urbina MD Work Phone: [facility] Comment on above: Medication Question Start: 02-20-2024 End: 02-20-2024 ambulatory CHENCHO URBINA Facility:[facility] Start: 02-20-2024 End: 02-20-2024 ambulatory CHENCHO A CIARA Facility:[facility] Start: 02-20-2024 End: 02-20-2024 Patient encounter procedure Chencho Urbina MD Work Phone: [facility] Comment on above: Hyponatremia (Primar y Dx); Idiopathic hypotension; Multiple closed fractures of pelvis without disruption of pelvic ring, initial encounter ([facility]) Start: 02-19-2024 End: 02-19-2024 Telephone encounter Chencho Urbina MD Work Phone: Internal Medicine [facility] Start: 02-18-2024 End: 02-19-2024 Telephone encounter Chencho Urbina MD Work Phone: [facility] Comment on above: Medication Problem Start: 02-17-2024 End: 02-17-2024 ambulatory Kaity Quintero RN Work Phone: [employer] Start: 02-17-2024 End: 02-17-2024 Chart abstracting Lana Schwartz MA [facility] Comment on above: Hospital F/U ([facility] ) Transition Of Care ( [facility], Discharge 02/16/24) Initial phone contact for Transitional Care Management, Started Weekly phone contact (Recurring) for Transitional Care Management Start: 02-17-2024 End: 02-17-2024 Telephone encounter Chencho Urbina MD Work Phone: [facility] Comment on above: PT- [facility] HH- POC Start: 02-14-2024 End: 02-14-2024 Chart abstracting Lana Schwartz MA [facility] Comment on above: ER F/U ([facility] ) Start: 02-14-2024 End: 02-14-2024 Telephone encounter Chencho Urbina MD Work Phone: [facility] Start: 02-13-2024 ambulatory Chencho Urbina Facility :[facility] Start: 02-13-2024 End: 02-16-2024 Evaluation and management of inpatient Ayaka Cuba Facility:[facility] Start: 01-14-2024 Refill Chencho roy MD Work Phone: [facility] Comment on above: Refill Request Start: 01-06-2024 Refill Chencho roy MD Work Phone: [facility] Comment on above: Refill Request Start: 01-01-2024 Telephone encounter Chencho Urbina MD Work Phone: [facility] Comment on above: Results Start: 11-28-2023 End: 11-28-2023 Telemedicine consultation with patient Kierra Alfaro MD Work Phone: NEUROLOGY Start: 11-28-2023 End: 11-28-2023 ambulatory Kierra Alfaro MD Work Phone: NEUROLOGY Comment on above: Nonruptured cerebral aneurysm (Primary Dx); Fibromuscular dysplasia of carotid artery (HCC); Carotid pseudoaneurysm (HCC) Start: 11-26-2023 End: 11-26-2023 Telemedicine consultation with patient Libertad Mckeon MD Work Phone: Endocrinology Start: 11-26-2023 End: 11-26-2023 ambulatory Libertad Mckeon MD Work Phone: Endocrinology Comment on above: Primary hyperparathy roidism (HCC) (Primary Dx); Age-related osteoporosis without current pathological fracture Start: 11-15-2023 Telephone encounter Cassandra whitt PA-C Work Phone: [facility] Comment on above: labs pulled early Start: 11-15-2023 End: 11-15-2023 ambulatory CHENCHO URBINA Facility:[facility] Start: 11-15-2023 End: 11-15-2023 Subsequent hospital visit by physician [facility] ([facility]-Stat) Work Phone: Cat Scan Comment on above: 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] Start: 11-01-2023 Refill Chencho roy MD Work Phone: [facility] [place] Comment on above: Refill Request Start: 10-07-2023 Telephone encounter Chencho Urbina MD Work Phone: [facility] [place] Comment on above: Rectal Problem Start: 10-01-2023 End: 10-01-2023 Telemedicine consultation with patient Libertad Mckeon MD Work Phone: Endocrinology Start: 10-01-2023 End: 10-01-2023 ambulatory Libertad Mckeon MD Work Phone: Endocrinology Comment on above: Primary hyperparathy roidism (HCC) (Primary Dx); Age-related osteoporosis without current pathological fracture Start: 09-24-2023 End: 09-24-2023 Office outpatient visit 40 minutes Cassandra Arshad PA-C Work Phone: [facility] [place] Comment on above: Medicare annual well ness visit, subsequent (Primary Dx); Advance directive discussed with patient; Essential hypertension; Mixed hyperlipidemia; Primary hyperparathyroidism (HCC); Nonruptured cerebral aneurysm; Stage 3b chronic kidney disease (HCC); Bilateral hearing loss, unspecified hearing loss type; GERD without esophagitis; Hypomagnesemia; Elevated fasting blood sugar; Malignant neoplasm of colon, unspecified part of colon (HCC); Iron deficiency anemia, unspecified iron deficiency anemia type; Age-related osteoporosis without current pathological fracture; Carotid stenosis, asymptomatic, bilateral Start: 09-24-2023 End: 09-24-2023 Patient encounter procedure Cassandra Arshad PA-C Work Phone: [facility] Work Phone: Start: 07-09-2023 End: 07-09-2023 ambulatory LIBERTAD MCKEON Facility:[facility] Start: 05-16-2023 End: 05-16-2023 Patient encounter procedure Kierra Alfaro MD Work Phone: NEUROLOGY Comment on above: Nonruptured cerebral aneurysm (Primary Dx) Start: 05-16-2023 End: 05-16-2023 ambulatory CHENCHO URBINA Facility:[facility] Start: 05-14-2023 End: 05-14-2023 ambulatory Libertad Mckeon MD Work Phone: Endocrinology Comment on above: Primary hyperparathy roidism (HCC) (Primary Dx); Age-related osteoporosis without current pathological fracture Start: 05-14-2023 End: 05-14-2023 Telemedicine consultation with patient Libertad Mckeon MD Work Phone: [place] [id number] Start: 05-08-2023 End: 05-08-2023 ambulatory [facility] Work Phone: [facility] [place] Start: 04-13-2023 End: 04-13-2023 ambulatory [facility] Nurse [facility] Work Phone: [facility] Comment on above: Arrived Start: 04-10-2023 End: 04-10-2023 ambulatory Marge Hayes MD Work Phone: Endocrine Surgery Comment on above: Hyperparathyroidism (HCC) (Primary Dx) Start: 04-10-2023 End: 04-10-2023 Telemedicine consultation with patient Marge Hayes MD Work Phone: [facility] Start: 03-25-2023 End: 03-26-2023 ambulatory MARGE HAYES Facility:[facility] Start: 03-22-2023 End: 03-22-2023 Patient encounter procedure Chencho Urbina MD Work Phone: [facility] Comment on above: Essential hypertensi on (Primary Dx); Mixed hyperlipidemia; Elevated fasting blood sugar; GERD without esophagitis; Stage 3a chronic kidney disease (HCC); Carotid stenosis, asymptomatic, bilateral; Iron deficiency anemia, unspecified iron deficiency anemia type; Malignant neoplasm of colon, unspecified part of colon (HCC); Nonruptured cerebral aneurysm; Grief reaction; Hypomagnesemia; Thyroid nodule; Medication management Start: 03-20-2023 ambulatory UNKNOWN PROVIDER Facili :[facility] Start: 03-20-2023 ambulatory CHENCHO Gonzalez ty:[facility] Start: 03-07-2023 Orders Only Marge Hayes MD Work Phone: Endocrine Surgery Comment on above: Hyperparathyroidism (HCC) (Primary Dx) Start: 02-20-2023 End: 02-20-2023 Patient encounter procedure Marge Hayes MD Work Phone: Endocrine Surgery Comment on above: Nontoxic multinodula r goiter (Primary Dx); Neck mass; Hyperparathyroidism (HCC) Start: 12-17-2022 End: 12-17-2022 Patient encounter procedure Jonny Suero MD Work Phone: Orthopaedics Comment on above: 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); Unspecified deformity of left finger(s) Start: 11-23-2022 End: 11-23-2022 Patient encounter procedure Elisa Doherty APRN.SITE ADMINISTRATOR Work Phone: [facility] Comment on above: Unspecified deformit y of left finger(s) (Primary Dx) Start: 11-15-2022 End: 11-15-2022 Subsequent hospital visit by physician Xr [facility] Work Phone: Radiology Comment on above: Swelling of left mid dle finger [M79.89] Start: 11-13-2022 End: 11-13-2022 Patient encounter procedure Pablo Keyes MD Work Phone: Endovascular Center Comment on above: Nonruptured cerebral aneurysm (Primary Dx); Hypertension, unspecified type Start: 10-25-2022 End: 10-25-2022 Subsequent hospital visit by physician Ct [facility] (I-Stat) Work Phone: Cat Scan Comment on above: Neck mass [R22.1] Start: 10-22-2022 Telephone encounter Elisa alvarez APRN.SITE ADMINISTRATOR Work Phone: [facility] Comment on above: Results Start: 09-30-2022 Telephone encounter [facility]ina MD [facility] Comment on above: Results; Appointment Start: 09-28-2022 End: 09-28-2022 ambulatory Pulm Lab [facility] Work Phone: PULM LAB [facility] Comment on above: Spirometry Start: 09-28-2022 End: 09-28-2022 Patient encounter procedure Pulm Lab [facility] Work Phone: [facility] [place] Start: 09-24-2022 Telephone encounter Chencho Urbina MD Work Phone: Family [facility] [place] Comment on above: Patient Question Start: 09-20-2022 End: 09-20-2022 Patient encounter procedure Chencho Urbina MD Work Phone: Family [facility] [place] Comment on above: Medicare annual well ness visit, subsequent (Primary Dx); Essential hypertension; Mixed hyperlipidemia; Elevated fasting blood sugar; Carotid stenosis, asymptomatic, bilateral; Iron deficiency anemia, unspecified iron deficiency anemia type; Stage 3a chronic kidney disease (HCC); Malignant neoplasm of colon, unspecified part of colon (HCC); Low blood magnesium; Situational depression; Benign paroxysmal positional vertigo, unspecified laterality; Advance directive discussed with patient; SOB (shortness of breath); Second hand smoke exposure Start: 08-30-2022 Telephone encounter Chencho Urbina MD Work Phone: Family [facility] Comment on above: Results Start: 07-25-2022 End: 07-25-2022 Patient encounter procedure Cassandra Arshad PA-C Work Phone: Family [facility] Comment on above: Situational stress ( Primary Dx); Grief reaction Start: 07-03-2022 Telephone encounter Cassandra whitt PA-C Work Phone: [facility] [place] Comment on above: Patient Update Start: 06-27-2022 End: 06-27-2022 Patient encounter procedure Cassandra Arshad PA-C Work Phone: [facility] [place] Comment on above: Situational stress ( Primary Dx); Grief reaction; Encounter for immunization Start: 03-15-2022 End: 03-15-2022 Patient encounter procedure Cassandra Arshad PA-C Work Phone: [facility] Comment on above: Essential hypertensi on (Primary Dx); Mixed hyperlipidemia; Stage 3 chronic kidney disease, unspecified whether stage 3a or 3b CKD (HCC); Elevated fasting blood sugar; Iron deficiency anemia, unspecified iron deficiency anemia type; Seasonal allergic rhinitis, unspecified trigger; Benign paroxysmal positional vertigo, unspecified laterality; Low blood magnesium; Encounter for immunization Start: 11-03-2021 Refill Chencho roy MD Work Phone: [facility] Comment on above: Refill Request Start: 10-02-2021 End: 10-02-2021 Nursing evaluation of patient and report Mi Nurse Work Phone: [facility] Comment on above: Squamous cell skin c ancer (Primary Dx) Start: 09-21-2021 Telephone encounter Chencho Urbina MD Work Phone: [facility] Comment on above: Results Start: 09-20-2021 End: 09-20-2021 Patient encounter procedure Chencho Urbina MD Work Phone: [facility] Comment on above: Neoplasm of uncertai n behavior of skin of neck (Primary Dx); Encounter for medication refill; Benign paroxysmal positional vertigo, unspecified laterality; Squamous cell skin cancer Start: 09-06-2021 Telephone encounter Chencho Urbina MD Work Phone: [facility] Comment on above: Results Start: 09-01-2021 End: 09-01-2021 Patient encounter procedure Chencho Urbina MD Work Phone: [facility] Comment on above: Medicare annual [facility] visit, subsequent (Primary Dx); Essential hypertension; Mixed hyperlipidemia; Elevated fasting blood sugar; GERD without esophagitis; Iron deficiency anemia, unspecified iron deficiency anemia type; Stage 3 chronic kidney disease, unspecified whether stage 3a or 3b CKD (HCC); Carotid stenosis, asymptomatic, bilateral; Malignant neoplasm of colon, unspecified part of colon (HCC); Low blood magnesium; Low serum potassium; Neoplasm of uncertain behavior of skin of neck; Living will on file; Advance directive discussed with patient Procedures Date Procedure Procedure Detail Performing Clinician Start: 10-07-2024 [facility]. [facility] COVID-19 VACCINE AGE 12+ YR (COMIRNATY) Cehncho Urbina MD Work Phone: Start: 09-28-2024 Urnls dip stick/tablet reagent auto microscopy Dr. Chencho Urbina MD Work Phone: Start: 09-28-[address] Chencho Alfonso Work Phone: Start: 08-17-2024 Urnls dip stick/tablet rgnt auto w/o microscopy Jean Jara ACID LOADER.SITE ADMINISTRATOR Work Phone: Start: 06-08-2024 Urnls dip stick/tablet rgnt auto w/o microscopy Elisa Doherty ACID LOADER.SITE ADMINISTRATOR Work Phone: Start: 04-29-2024 Urnls dip stick/tablet rgnt auto w/o microscopy Dianne Rueda ACID LOADER.SITE ADMINISTRATOR Work Phone: Start: 03-17-2024 H/O: surgery History of parathyroid surgery Libertad Mckeon MD Work Phone: Start: 02-26-2024 [employer] COVID-19 VACCINE AGE 12+ YR Chencho Urbina MD Work Phone: Start: 11-15-2023 Ct angiography head w/contrast/noncontrast Kierra Alfaro MD Work Phone: Start: 11-15-2023 Ct angiography neck w/contrast/noncontrast Kierra Alfaro MD Work Phone: Start: 05-08-2023 [employer] COVID-19 VACCINE (2022- SEASON) AGE 12+ YR Nathan Cruz DO Work Phone: Start: 04-13-2023 INFLUENZA VACCINE, PRSV FREE, AGE 65+ YR, HIGH DOSE, QUADRIVALENT (FLUZONE HIGH-DOSE) Matt Donald MD Work Phone: Start: 03-25-2023 Us soft tissue head & neck real time imge denam Marline Brito MD Work Phone: Start: 03-18-2023 Creatinine other source Marge Hayes MD Work Phone: Start: 11-15-2022 Radex hand minimum 3 views Chencho Urbina MD Work Phone: Start: 10-25-2022 Ct soft tissue neck w/contrast material Chencho Urbina MD Work Phone: Start: 09-28-2022 Brncdilat rspse spmtry pre&post-brncdilat admn Chencho Urbina MD Work Phone: Start: 06-27-2022 [employer] COVID-19 BIVALENT BOOSTER VACCINE, AGE 12+ YR Cassandra Arshad PA-C Work Phone: Start: 03-15-2022 INFLUENZA SEASONAL QUADRIVALENT HIGH DOSE AGE 65+ Cassandra Arshad PA-C Work Phone: Start: 09-20-2021 SURGICAL PATHOLOGY Chencho Urbina MD Work Phone: Plan of Treatment Date Care Activity Detail Author Start: 10-07-2027 Diabetes Screening Diabetes Screening [facility] Start: 08-30-2027 Diabetes Screening Diabetes Screening [facility] Start: 03-25-2027 Diabetes Screening Diabetes Screening [facility] Start: 03-16-2027 Diabetes Screening Diabetes Screening [facility] Start: 03-02-2027 Diabetes Screening Diabetes Screening [facility] Start: 02-19-2027 Diabetes Screening Diabetes Screening [facility] Start: 11-14-2026 Diabetes Screening Diabetes Screening [facility] Start: 08-18-2026 Diabetes Screening Diabetes Screening [facility] Start: 05-15-2026 Diabetes Screening Diabetes Screening [facility] Start: 03-22-2026 Diabetes Screening Diabetes Screening [facility] Start: 10-07-2025 Anxiety Screening Anxiety Screening [facility] Start: 09-05-2025 DIABETES SCREEN DIABETES SCREEN [facility] Start: 09-05-2025 Diabetes Screening Diabetes Screening [facility] Start: 08-29-2025 DIABETES SCREEN DIABETES SCREEN [facility] Start: 04-08-2025 End: 04-08-2025 Patient encounter procedure 04/08/2025 9:20 AM EDT Office Visit [facility] [place] [address] Cassandra Arshad PA-C [address] [facility] [place] [id number] 6 month follow up Family Medicine [facility] Comment on above: 6 month follow up Start: 03-26-2025 End: 06-25-2025 Basic metabolic 2000 panel - Serum or Plasma BASIC METABOLIC PANEL Lab Routine Essential hypertension Mixed hyperlipidemia Stage 3b chronic kidney disease (HCC) Expected: 03/26/2025, Expires: 06/25/2025 [facility] Comment on above: Expected: 03/26/2025, Expires: Start: 03-26-2025 End: 06-25-2025 Hemoglobin A1c in Blood HEMOGLOBIN A1C Lab Routine Elevated fasting blood sugar Expected: 03/26/2025, Expires: 06/25/2025 [facility] Comment on above: Expected: 03/26/2025, Expires: Start: 03-26-2025 End: 06-25-2025 LIPID PANEL, NONFASTING LIPID PANEL, NONFASTING Lab Routine Essential hypertension Mixed hyperlipidemia Carotid stenosis, asymptomatic, bilateral Expected: 03/26/2025, Expires: 06/25/2025 [facility] Comment on above: Expected: 03/26/2025, Expires: Start: 03-26-2025 End: 06-25-2025 Magnesium [Mass/volume] in Serum or Plasma MAGNESIUM Lab Routine Hypomagnesemia Expected: 03/26/2025, Expires: 06/25/2025 [facility] Comment on above: Expected: 03/26/2025, Expires: Start: 03-22-2025 End: 03-22-2025 Patient encounter procedure 03/22/2025 9:30 AM EDT Appointment Radiology [address] [place] [id number] Primary hyperparathyroidism (HCC) [E21.0] Radiology Comment on above: Primary hyperparathyroidism (HCC) [E21.0 ] Start: 03-18-2025 Screening for osteoporosis Bone Density Screening [facility] Start: 03-01-2025 DIABETES SCREEN DIABETES SCREEN [facility] Start: 11-27-2024 End: 12-27-2024 CT Neck W contrast IV CTA NECK W IVCON Radiology Routine 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) Expected: 11/27/2024, Expires: 12/27/2024 [facility] Comment on above: Expected: 11/27/2024, Expires: Start: 11-27-2024 End: 12-27-2024 CTA Head Arteries W contrast IV CTA HEAD W IVCON Radiology Routine Nonruptured cerebral aneurysm Expected: 11/27/2024, Expires: 12/27/2024 [facility] Work Phone: Comment on above: Expected: 11/27/2024, Expires: Start: 10-28-2024 End: 10-28-2024 Patient encounter procedure Vasculary Surgery Comment on above: Bilateral calf pain [M79.661, M79.662]; Diminished pulses in lower extremity [R09.89] Start: 10-27-2024 End: 10-27-2024 Patient encounter procedure 10/27/2024 8:30 AM EDT Office Visit Urology [address] [place], [place] [id number] Mian Farrell PA-C [address] [place] [address] Urgency of micturition [R39.15]; Dribbling of urine [N39.43]; Frequent UTI [N39.0] Urology Comment on above: Urgency of micturition [R39.15]; Dribbli ng of urine [N39.43]; Frequent UTI [N39.0] Start: 10-21-2024 End: 01-20-2025 Sodium [Moles/volume] in Serum or Plasma SODIUM/NA Lab Routine Hyponatremia Expected: 10/21/2024, Expires: 01/20/2025 [facility] Work Phone: Comment on above: Expected: 10/21/2024, Expires: Start: 10-07-2024 End: 10-07-2024 Patient encounter procedure [facility] Comment on above: Medicare Wellness Start: 09-24-2024 End: 09-24-2024 Patient encounter procedure 09/24/2024 9:20 AM EDT Office Visit [facility] [address] [place] [address] Elisa Doherty APRN.SITE ADMINISTRATOR [address] [place], [place] [id number] 3 week follow yup - HTN/Dizziness/Depression/L eg Pain [facility] Comment on above: 3 week follow yup - HTN/Dizziness/Depres kayleen/Leg Pain Start: 09-23-2024 End: 12-23-2024 CBC W Auto Differential panel - Blood COMPLETE BLOOD COUNT AND DIFFERENTIAL Lab Routine Iron deficiency anemia, unspecified iron deficiency anemia type Expected: 09/23/2024, Expires: 12/23/2024 [facility] Comment on above: Expected: 09/23/2024, Expires: Start: 09-23-2024 End: 12-23-2024 Cobalamin (Vitamin B12) [Mass/volume] in Serum or Plasma VITAMIN B12 Lab Routine Medication management Expected: 09/23/2024, Expires: 12/23/2024 [facility] Comment on above: Expected: 09/23/2024, Expires: Start: 09-23-2024 End: 12-23-2024 Comprehensive metabolic 2000 panel - Serum or Plasma COMPREHENSIVE METABOLIC PANEL Lab Routine Stage 3b chronic kidney disease (HCC) Elevated fasting blood sugar Expected: 09/23/2024, Expires: 12/23/2024 [facility] Comment on above: Expected: 09/23/2024, Expires: Start: 09-23-2024 End: 12-23-2024 Hemoglobin A1c in Blood HEMOGLOBIN A1C Lab Routine Elevated fasting blood sugar Expected: 09/23/2024, Expires: 12/23/2024 [facility] Comment on above: Expected: 09/23/2024, Expires: Start: 09-23-2024 End: 12-23-2024 Iron and Iron binding capacity panel - Serum or Plasma IRON AND TIBC Lab Routine Iron deficiency anemia, unspecified iron deficiency anemia type Expected: 09/23/2024, Expires: 12/23/2024 [facility] Comment on above: Expected: 09/23/2024, Expires: Start: 09-23-2024 End: 12-23-2024 LIPID PANEL, NONFASTING LIPID PANEL, NONFASTING Lab Routine Mixed hyperlipidemia Expected: 09/23/2024, Expires: 12/23/2024 [facility] Comment on above: Expected: 09/23/2024, Expires: Start: 09-23-2024 End: 12-23-2024 Magnesium [Mass/volume] in Serum or Plasma MAGNESIUM Lab Routine Medication management Expected: 09/23/2024, Expires: 12/23/2024 [facility] Comment on above: Expected: 09/23/2024, Expires: Start: 09-23-2024 End: 12-23-2024 Thyrotropin [Units/volume] in Serum or Plasma THYROID STIMULATING HORMONE Lab Routine Nontoxic multinodular goiter Medication management Expected: 09/23/2024, Expires: 12/23/2024 [facility] Comment on above: Expected: 09/23/2024, Expires: Start: 09-02-2024 End: 09-02-2024 Patient encounter procedure 09/02/2024 2:40 PM EDT Office Visit [facility] [address] [place] [address] Chencho Urbina MD [address] [place] [address] [id number] Multiple UTIs over past several months, increasing depression, numbness espicially to R leg with sciatica. See TE 08/28/24. [facility] Comment on above: Multiple UTIs over past several months, increasing depression, numbness espicially to R leg with sciatica. See TE 08/28/24. Start: 08-28-2024 End: 11-27-2024 Bacteria identified in Urine by Culture BACTERIAL CULTURE, URINE Microbiology Routine Urgency of urination Expected: 08/28/2024, Expires: 11/27/2024 [facility] Comment on above: Expected: 08/28/2024, Expires: Start: 08-28-2024 End: 11-27-2024 Comprehensive metabolic 2000 panel - Serum or Plasma COMPREHENSIVE METABOLIC PANEL Lab Routine Stage 3b chronic kidney disease (HCC) Expected: 08/28/2024, Expires: 11/27/2024 [facility] Comment on above: Expected: 08/28/2024, Expires: Start: 08-28-2024 DIABETES SCREEN DIABETES SCREEN [facility] Start: 08-28-2024 End: 11-27-2024 Thyrotropin [Units/volume] in Serum or Plasma THYROID STIMULATING HORMONE Lab Routine Nontoxic multinodular goiter Expected: 08/28/2024, Expires: 11/27/2024 [facility] Comment on above: Expected: 08/28/2024, Expires: Start: 08-28-2024 End: 11-27-2024 Urinalysis complete panel - Urine URINALYSIS, WITH MICROSCOPIC Lab Routine Urgency of urination Expected: 08/28/2024, Expires: 11/27/2024 [facility] Work Phone: Comment on above: Expected: 08/28/2024, Expires: Start: 08-25-2024 Covid-19 Vaccine () Covid-19 Vaccine () [facility] Start: 07-27-2024 End: 10-26-2024 Urinalysis complete panel - Urine URINALYSIS, WITH MICROSCOPIC Lab Routine Microscopic hematuria Expected: 07/27/2024, Expires: 10/26/2024 [facility] Work Phone: Comment on above: Expected: 07/27/2024, Expires: Start: 06-24-2024 End: 06-24-2024 Patient encounter procedure 06/24/2024 9:15 AM EST Appointment Radiology [address] [place] [address] Microscopic hematuria [R31.29]; Urinary frequency [R35.0] Radiology Comment on above: Microscopic hematuria [R31.29]; Urinary frequency [R35.0] Start: 06-15-2024 End: 09-14-2024 Urinalysis complete panel - Urine URINALYSIS WITH MICROSCOPIC, REFLEX CULTURE Lab Routine Urinary frequency Expected: 06/15/2024, Expires: 09/14/2024 [facility] Work Phone: Comment on above: Expected: 06/15/2024, Expires: Start: 06-15-2024 End: 06-15-2024 Patient encounter procedure 06/15/2024 1:00 PM EST [facility] [address] [facility] [place] [address] Cassandra Arshad PA-C [address] [facility] [place], [place] [id number] BP follow up [facility] Comment on above: BP follow up Start: 06-10-2024 Advance Directive Discussion Advance Directive Discussion [facility] Start: 05-25-2024 End: 05-25-2024 Patient encounter procedure 05/25/2024 1:05 PM EST Appointment Radiology [address] [place] [address] Primary hyperparathyroidism (HCC) [E21.0] Radiology Comment on above: Primary hyperparathyroidism (HCC) [E21.0 ] Start: 05-25-2024 End: 05-25-2024 Patient encounter procedure 05/25/2024 10:05 AM EST Appointment Radiology [address] [place] [address] Primary hyperparathyroidism (HCC) [E21.0] Radiology Comment on above: Primary hyperparathyroidism (HCC) [E21.0 ] Start: 05-04-2024 End: 05-04-2024 Patient encounter procedure 05/04/2024 10:00 AM EST Office Visit [facility] [address] [place] [address] Cassandra Arshad PA-C [address] [facility] [place], [place] [id number] Back and leg pain [facility] Comment on above: Back and leg pain Start: 03-25-2024 End: 06-24-2024 Basic metabolic 2000 panel - Serum or Plasma [facility] Work Phone: Comment on above: Expected: 03/25/2024, Expires: Start: 03-25-2024 End: 06-24-2024 CBC W Auto Differential panel - Blood [facility] Work Phone: Comment on above: Expected: 03/25/2024, Expires: Start: 03-25-2024 End: 06-24-2024 Hemoglobin A1c in Blood HEMOGLOBIN A1C Lab Routine Elevated fasting blood sugar Expected: 03/25/2024, Expires: 06/24/2024 [facility] Work Phone: Comment on above: Expected: 03/25/2024, Expires: Start: 03-25-2024 End: 06-24-2024 LIPID PANEL, NONFASTING LIPID PANEL, NONFASTING Lab Routine Mixed hyperlipidemia Expected: 03/25/2024, Expires: 06/24/2024 [facility] Work Phone: Comment on above: Expected: 03/25/2024, Expires: Start: 03-25-2024 End: 06-24-2024 Magnesium [Mass/volume] in Serum or Plasma MAGNESIUM Lab Routine Hypomagnesemia Expected: 03/25/2024, Expires: 06/24/2024 [facility] Work Phone: Comment on above: Expected: 03/25/2024, Expires: Start: 03-25-2024 End: 06-24-2024 Thyrotropin [Units/volume] in Serum or Plasma [facility] Comment on above: Expected: 03/25/2024, Expires: Start: 03-25-2024 End: 06-24-2024 Urinalysis complete panel - Urine [facility] Work Phone: Comment on above: Expected: 03/25/2024, Expires: Start: 03-25-2024 End: 03-25-2024 Patient encounter procedure [facility] Comment on above: 6 month FU 6 month FU,(itchy sk in shoulders to pelvic area, no rash) Start: 03-17-2024 End: 06-16-2024 Basic metabolic 2000 panel - Serum or Plasma [facility] Work Phone: Comment on above: Expected: 03/17/2024, Expires: Start: 03-17-2024 End: 03-17-2024 Follow-up encounter 03/17/2024 10:00 AM EDT [facility] Endocrinology [id number] [place] [address] [place] [address] [place] [address] follow up- ref by Dr Hayes, f/u after parathyroidectomy Endocrinology Comment on above: follow up- ref by Dr Hayes f/nasir after p arathyroidectomy Start: 03-16-2024 End: 03-16-2024 Patient encounter procedure 03/16/2024 9:30 AM EDT Office Visit Orthopaedics [address] [place] [address] Jonny Suero MD [address] [place] [address] Multiple closed fractures of pelvis without disruption of pelvic ring, initial encounter (HCC) [S32.82XA] Orthopaedics Comment on above: Multiple closed fractures of pelvis with out disruption of pelvic ring, initial encounter (HCC) [S32.82XA] Start: 02-26-2024 End: 02-26-2024 Patient encounter procedure 02/26/2024 5:20 PM EDT Office Visit [facility] [address] [place] [address] Chencho Urbina MD [address] [place] [address] 1 week follow up Family [facility] Comment on above: 1 week follow up Start: 02-26-2024 End: 05-27-2024 Basic metabolic 2000 panel - Serum or Plasma BASIC METABOLIC PANEL Lab Routine Essential hypertension Hyponatremia Expected: 02/26/2024, Expires: 05/27/2024 [facility] Work Phone: Comment on above: Expected: 02/26/2024, Expires: Start: 02-20-2024 End: 02-20-2024 Patient encounter procedure 02/20/2024 8:00 AM EDT Office Visit [facility] [address] [place], [place] [id number] Chencho Urbina MD [address] [place], [place] [id number] [facility] follow up 02/16/2024; FX Pelvis d/t Fall [facility] Comment on above: [facility] follow up 02/16/2024; FX Pe lvis d/t Fall Start: 02-09-2024 Covid-19 Vaccine ( season) Covid-19 Vaccine () [facility] Start: 02-09-2024 Influenza vaccination Influenza Vaccine (#1) [facility] Start: 11-28-2023 End: 11-28-2023 Follow-up encounter 11/28/2023 11:40 AM EDT [facility] NEUROLOGY [address] [facility] [address] Kierra Alfaro MD [address] [place] [address] follow up after CTA head/neck NEUROLOGY Comment on above: follow up after CTA head/neck Start: 11-26-2023 End: 11-26-2023 Follow-up encounter 11/26/2023 9:00 AM EDT [facility] Endocrinology [address] [address] [place] [address] [place] [address] FOLLOW UP AFTER VISIT ON 10/01/2023 PARATHYROIDECTOMY Endocrinology Comment on above: FOLLOW UP AFTER VISIT ON 10/01/2023 PARA THYROIDECTOMY Start: 11-15-2023 End: 06-14-2024 CTA HEAD W IVCON CTA HEAD W IVCON Radiology Routine Nonruptured cerebral aneurysm Expected: 11/15/2023, Expires: 06/14/2024 [facility] Work Phone: Comment on above: Expected: 11/15/2023, Expires: Start: 11-15-2023 End: 06-14-2024 CTA NECK W IVCON CTA NECK W IVCON Radiology Routine Nonruptured cerebral aneurysm Expected: 11/15/2023, Expires: 06/14/2024 [facility] Work Phone: Comment on above: Expected: 11/15/2023, Expires: Start: 11-15-2023 End: 11-15-2023 Patient encounter procedure 11/15/2023 9:00 AM EDT Appointment Cat Scan [address] [facility] [place] [address] CTA head and Neck Cat Scan Comment on above: CTA head and Neck Start: 2023 End: 02-10-2024 25-hydroxyvitamin D3 [Mass/volume] in Serum or Plasma VITAMIN D 25 HYDROXY Lab Routine Primary hyperparathyroidism (HCC) Expected: 2023, Expires: 02/10/2024 [facility] Comment on above: Expected: 2023, Expires: 4 Start: 2023 End: 02-10-2024 Comprehensive metabolic 2000 panel - Serum or Plasma COMPREHENSIVE METABOLIC PANEL Lab Routine Primary hyperparathyroidism (HCC) Expected: 2023, Expires: 02/10/2024 [facility] Work Phone: Comment on above: Expected: 2023, Expires: Start: 2023 End: 02-10-2024 Parathyrin.intact [Mass/volume] in Serum or Plasma PTH INTACT Lab Routine Primary hyperparathyroidism (HCC) Expected: 2023, Expires: 02/10/2024 [facility] Comment on above: Expected: 2023, Expires: Start: 09-21-2023 SHINGRIX VACCINE (1 of 2) SHINGRIX VACCINE (1 of 2) [facility] Comment on above: Postponed from 11/10/1989 (Insurance Cov erage) Start: 09-21-2023 Urine microalbumin profile [facility] Comment on above: Postponed from 11/10/1958 (Insurance Cov erage) Start: 09-13-2023 End: 11-13-2023 CBC W Auto Differential panel - Blood CBC + DIFF Lab Routine Stage 3a chronic kidney disease (HCC) Iron deficiency anemia, unspecified iron deficiency anemia type Expected: 09/13/2023, Expires: 11/13/2023 [facility] Work Phone: Comment on above: Expected: 09/13/2023, Expires: Start: 09-13-2023 End: 11-13-2023 Cobalamin (Vitamin B12) [Mass/volume] in Serum or Plasma VITAMIN B12 BLOOD Lab Routine GERD without esophagitis Medication management Expected: 09/13/2023, Expires: 11/13/2023 [facility] Work Phone: Comment on above: Expected: 09/13/2023, Expires: Start: 09-13-2023 End: 11-13-2023 Comprehensive metabolic 2000 panel - Serum or Plasma COMP METABOLIC PANEL Lab Routine Essential hypertension Mixed hyperlipidemia Stage 3a chronic kidney disease (HCC) Expected: 09/13/2023, Expires: 11/13/2023 [facility] Work Phone: Comment on above: Expected: 09/13/2023, Expires: 4 Start: 09-13-2023 End: 11-13-2023 Hemoglobin A1c in Blood HGB A1C Lab Routine Elevated fasting blood sugar Expected: 09/13/2023, Expires: 11/13/2023 [facility] Work Phone: Comment on above: Expected: 09/13/2023, Expires: Start: 09-13-2023 End: 11-13-2023 Iron and Iron binding capacity panel - Serum or Plasma IRON + TIBC Lab Routine Iron deficiency anemia, unspecified iron deficiency anemia type Expected: 09/13/2023, Expires: 11/13/2023 [facility] Work Phone: Comment on above: Expected: 09/13/2023, Expires: Start: 09-13-2023 End: 11-13-2023 LIPID PANEL, NONFASTING LIPID PANEL, NONFASTING Lab Routine Essential hypertension Mixed hyperlipidemia Expected: 09/13/2023, Expires: 11/13/2023 [facility] Work Phone: Comment on above: Expected: 09/13/2023, Expires: Start: 09-13-2023 End: 11-13-2023 Magnesium [Mass/volume] in Serum or Plasma MAGNESIUM BLD Lab Routine Hypomagnesemia Expected: 09/13/2023, Expires: 11/13/2023 [facility] Work Phone: Comment on above: Expected: 09/13/2023, Expires: Start: 09-13-2023 End: 11-13-2023 Thyrotropin [Units/volume] in Serum or Plasma TSH BLD Lab Routine Thyroid nodule Expected: 09/13/2023, Expires: 11/13/2023 [facility] Work Phone: Comment on above: Expected: 09/13/2023, Expires: Start: 09-13-2023 End: 11-13-2023 Urinalysis complete panel - Urine URINALYSIS, WITH MICROSCOPIC Lab Routine Essential hypertension Mixed hyperlipidemia Stage 3a chronic kidney disease (HCC) Expected: 09/13/2023, Expires: 11/13/2023 [facility] Work Phone: Comment on above: Expected: 09/13/2023, Expires: Start: 09-06-2023 Covid-19 Vaccine () Covid-19 Vaccine () [facility] Start: 05-15-2023 End: 12-13-2023 Mra head w/o contrst material MRA BRAIN WO IVCON Radiology Routine Nonruptured cerebral aneurysm Expected: 05/15/2023 (Approximate), Expires: 12/13/2023 [facility] Work Phone: Comment on above: Expected: 05/15/2023 (Approximate), Expi res: 12/13/2023 Start: 05-14-2023 End: 08-13-2023 25-hydroxyvitamin D3 [Mass/volume] in Serum or Plasma VITAMIN D 25 HYDROXY Lab Routine Primary hyperparathyroidism (HCC) Expected: 05/14/2023, Expires: 08/13/2023 [facility] Work Phone: Comment on above: Expected: 05/14/2023, Expires: Start: 05-14-2023 End: 08-13-2023 Comprehensive metabolic 2000 panel - Serum or Plasma COMP METABOLIC PANEL Lab Routine Primary hyperparathyroidism (HCC) Expected: 05/14/2023, Expires: 08/13/2023 [facility] Work Phone: Comment on above: Expected: 05/14/2023, Expires: Start: 05-14-2023 End: 08-13-2023 Parathyrin.intact [Mass/volume] in Serum or Plasma PTH INTACT BLD Lab Routine Primary hyperparathyroidism (HCC) Expected: 05/14/2023, Expires: 08/13/2023 [facility] Work Phone: Comment on above: Expected: 05/14/2023, Expires: Start: 04-10-2023 End: 07-10-2023 Albumin [Mass/volume] in Serum or Plasma ALBUMIN BLD Lab Routine Hyperparathyroidism (HCC) Expected: 04/10/2023 (Approximate), Expires: 07/10/2023 [facility] Work Phone: Comment on above: Expected: 04/10/2023 (Approximate), Expi res: 07/10/2023 Start: 04-10-2023 End: 07-10-2023 Calcium [Mass/volume] in Serum or Plasma CALCIUM TOTAL BLD Lab Routine Hyperparathyroidism (HCC) Expected: 04/10/2023 (Approximate), Expires: 07/10/2023 [facility] Work Phone: Comment on above: Expected: 04/10/2023 (Approximate), Expi res: 07/10/2023 Start: 04-10-2023 End: 07-10-2023 CREATININE BLD CREATININE BLD Lab Routine Hyperparathyroidism (HCC) Expected: 04/10/2023, Expires: 07/10/2023 [facility] Work Phone: Comment on above: Expected: 04/10/2023, Expires: Start: 04-10-2023 End: 07-10-2023 Parathyrin.intact [Mass/volume] in Serum or Plasma PTH INTACT BLD Lab Routine Hyperparathyroidism (HCC) Expected: 04/10/2023 (Approximate), Expires: 07/10/2023 [facility] Work Phone: Comment on above: Expected: 04/10/2023 (Approximate), Expi res: 07/10/2023 Start: 04-10-2023 End: 07-10-2023 Phosphate [Mass/volume] in Serum or Plasma PHOSPHORUS INORGANIC Lab Routine Hyperparathyroidism (HCC) Expected: 04/10/2023 (Approximate), Expires: 07/10/2023 [facility] Work Phone: Comment on above: Expected: 04/10/2023 (Approximate), Expi res: 07/10/2023 Start: 03-08-2023 End: 05-08-2023 Basic metabolic 2000 panel - Serum or Plasma BASIC METABOLIC PNL Lab Routine Essential hypertension Mixed hyperlipidemia Elevated fasting blood sugar Stage 3a chronic kidney disease (HCC) Expected: 03/08/2023, Expires: 05/08/2023 [facility] Work Phone: Comment on above: Expected: 03/08/2023, Expires: Start: 03-08-2023 End: 05-08-2023 Hemoglobin A1c in Blood HGB A1C Lab Routine Elevated fasting blood sugar Expected: 03/08/2023, Expires: 05/08/2023 [facility] Work Phone: Comment on above: Expected: 03/08/2023, Expires: Start: 03-08-2023 End: 05-08-2023 LIPID PANEL, NONFASTING LIPID PANEL, NONFASTING Lab Routine Essential hypertension Mixed hyperlipidemia Expected: 03/08/2023, Expires: 05/08/2023 [facility] Work Phone: Comment on above: Expected: 03/08/2023, Expires: Start: 03-08-2023 End: 05-08-2023 Magnesium [Mass/volume] in Serum or Plasma MAGNESIUM BLD Lab Routine Low blood magnesium Expected: 03/08/2023, Expires: 05/08/2023 [facility] Work Phone: Comment on above: Expected: 03/08/2023, Expires: Start: 02-20-2023 End: 04-22-2023 25-hydroxyvitamin D3 [Mass/volume] in Serum or Plasma [facility] Work Phone: Comment on above: Expected: 02/20/2023 (Approximate), Expi res: 04/22/2023 Start: 02-20-2023 End: 04-22-2023 Albumin [Mass/volume] in Serum or Plasma [facility] Work Phone: Comment on above: Expected: 02/20/2023 (Approximate), Expi res: 04/22/2023 Start: 02-20-2023 End: 04-22-2023 Calcitriol [Mass/volume] in Serum or Plasma [facility] Work Phone: Comment on above: Expected: 02/20/2023 (Approximate), Expi res: 04/22/2023 Start: 02-20-2023 End: 04-22-2023 Calcium [Mass/volume] in Serum or Plasma [facility] Work Phone: Comment on above: Expected: 02/20/2023 (Approximate), Expi res: 04/22/2023 Start: 02-20-2023 End: 04-22-2023 CREATININE BLD [facility] Work Phone: Comment on above: Expected: 02/20/2023, Expires: 3 Start: 02-20-2023 End: 04-22-2023 Parathyrin.intact [Mass/volume] in Body fluid [facility] Work Phone: Comment on above: Expected: 02/20/2023, Expires: 3 Start: 02-20-2023 End: 04-22-2023 Phosphate [Mass/volume] in Serum or Plasma [facility] Work Phone: Comment on above: Expected: 02/20/2023 (Approximate), Expi res: 04/22/2023 Start: 02-08-2023 Covid-19 Vaccine () Covid-19 Vaccine () [facility] Start: 02-08-2023 Influenza vaccination [facility] Start: 10-25-2022 COVID-19 VACCINE (7 - Pfizer series) COVID-19 VACCINE (7 - Pfizer series) [facility] Start: 09-10-2022 End: 11-10-2022 CBC W Auto Differential panel - Blood CBC + DIFF Lab Routine Essential hypertension Expected: 09/10/2022, Expires: 11/10/2022 [facility] Work Phone: Comment on above: Expected: 09/10/2022, Expires: 3 Start: 09-10-2022 End: 11-10-2022 Comprehensive metabolic 2000 panel - Serum or Plasma COMP METABOLIC PANEL Lab Routine Essential hypertension Stage 3 chronic kidney disease, unspecified whether stage 3a or 3b CKD (HCC) Elevated fasting blood sugar Expected: 09/10/2022, Expires: 11/10/2022 [facility] Work Phone: Comment on above: Expected: 09/10/2022, Expires: 3 Start: 09-10-2022 End: 11-10-2022 Hemoglobin A1c in Blood HGB A1C Lab Routine Elevated fasting blood sugar Expected: 09/10/2022, Expires: 11/10/2022 [facility] Work Phone: Comment on above: Expected: 09/10/2022, Expires: 3 Start: 09-10-2022 End: 11-10-2022 LIPID PANEL, NONFASTING LIPID PANEL, NONFASTING Lab Routine Mixed hyperlipidemia Expected: 09/10/2022, Expires: 11/10/2022 [facility] Work Phone: Comment on above: Expected: 09/10/2022, Expires: Start: 09-10-2022 End: 11-10-2022 Magnesium [Mass/volume] in Serum or Plasma MAGNESIUM BLD Lab Routine Low blood magnesium Expected: 09/10/2022, Expires: 11/10/2022 [facility] Work Phone: Comment on above: Expected: 09/10/2022, Expires: Start: 09-10-2022 End: 11-10-2022 Urinalysis complete panel - Urine URINALYSIS, WITH MICROSCOPIC Lab Routine Essential hypertension Stage 3 chronic kidney disease, unspecified whether stage 3a or 3b CKD (HCC) Expected: 09/10/2022, Expires: 11/10/2022 [facility] Work Phone: Comment on above: Expected: 09/10/2022, Expires: 3 Start: 09-01-2022 SHINGRIX VACCINE (1 of 2) SHINGRIX VACCINE (1 of 2) [facility] Comment on above: Postponed from 11/10/1989 (Insurance Cov erage) Start: 09-01-2022 Urine microalbumin profile DTAP,TDAP,TD (1 - Tdap) [facility] Comment on above: Postponed from 11/10/1958 (Insurance Cov erage) Start: 08-30-2022 End: 10-30-2022 Basic metabolic 2000 panel - Serum or Plasma BASIC METABOLIC PNL Lab Routine Hyponatremia Hypercalcemia Expected: 08/30/2022, Expires: 10/30/2022 [facility] Work Phone: Comment on above: Expected: 08/30/2022, Expires: 3 Start: 08-30-2022 End: 10-30-2022 Parathyrin.intact [Mass/volume] in Serum or Plasma PTH INTACT BLD Lab Routine Hypercalcemia Expected: 08/30/2022, Expires: 10/30/2022 [facility] Work Phone: Comment on above: Expected: 08/30/2022, Expires: 3 Start: 06-10-2022 ADVANCE DIRECTIVE DISCUSSION ADVANCE DIRECTIVE DISCUSSION [facility] Start: 06-10-2022 DEPRESSION ASSESSMENT DEPRESSION ASSESSMENT [facility] Start: 02-23-2022 End: 04-25-2022 Basic metabolic 2000 panel - Serum or Plasma BASIC METABOLIC PNL Lab Routine Elevated fasting blood sugar Stage 3 chronic kidney disease, unspecified whether stage 3a or 3b CKD (HCC) Expected: 02/23/2022, Expires: 04/25/2022 [facility] [place] Work Phone: Comment on above: Expected: 02/23/2022, Expires: 2 Start: 02-23-2022 End: 04-25-2022 Hemoglobin A1c/Hemoglobin.total in Blood HGB A1C Lab Routine Elevated fasting blood sugar Expected: 02/23/2022, Expires: 04/25/2022 [facility] [place] Work Phone: Comment on above: Expected: 02/23/2022, Expires: 2 Start: 02-23-2022 End: 04-25-2022 LIPID PANEL, NONFASTING LIPID PANEL, NONFASTING Lab Routine Mixed hyperlipidemia Expected: 02/23/2022, Expires: 04/25/2022 [facility] [place] Work Phone: Comment on above: Expected: 02/23/2022, Expires: 2 Start: 02-23-2022 End: 04-25-2022 Magnesium [Mass/volume] in Serum or Plasma MAGNESIUM BLD Lab Routine Low blood magnesium Expected: 02/23/2022, Expires: 04/25/2022 [facility] [place] Work Phone: Comment on above: Expected: 02/23/2022, Expires: 2 Start: 11-10-2021 COVID-19 VACCINE (5 - Booster for Pfizer series) COVID-19 VACCINE (5 - Booster for Pfizer series) [facility] Start: 09-01-2021 End: 11-01-2021 POTASSIUM BLD POTASSIUM BLD Lab Routine Low serum potassium Expected: 09/01/2021, Expires: 11/01/2021 [facility] [place] Work Phone: Comment on above: Expected: 09/01/2021, Expires: Start: 11-10-2014 RSV Vaccine (1 - 1-dose 75+ series) RSV Vaccine (1 - 1-dose 75+ series) [facility] Start: 1999 RSV Vaccine (1 - 1-dose 60+ series) RSV Vaccine (1 - 1-dose 60+ series) [facility] Start: 11-10-1989 Shingrix Vaccine (1 of 2) Shingrix Vaccine (1 of 2) [facility] [place] Start: 11-10-1958 Urine microalbumin profile DTaP,Tdap,Td Vaccine (1 - Tdap) [facility] Start: 11-10-1957 Anxiety Screening Anxiety Screening [facility] Start: 11-10-1945 PNEUMOCOCCAL: 65+ (1 - PCV) PNEUMOCOCCAL: 65+ (1 - PCV) [facility] Bacteria identified in Urine by Culture URINE CULTURE Microbiology Routine UTI symptoms 04/29/2024 3:44 PM EST [facility] [place] Work Phone: Bacteria identified in Urine by Culture BACTERIAL CULTURE, URINE Microbiology Routine UTI symptoms 08/17/2024 1:36 PM EDT [facility] [place] Work Phone: 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 CYTOLOGY NON-GY N Lab Routine Hyperparathyroidism (HCC) 02/20/2023 12:31 PM EDT [facility] [place] Work Phone: End: 10-20-2023 SPIROMETRY - BASELINE AND POST DILATOR SPIROMETRY - BASELINE AND POST DILATOR PFT Routine SOB (shortness of breath) Second hand smoke exposure 1 Occurrences starting 09/20/2022 until 10/20/2023 [facility] [place] Work Phone: Comment on above: 1 Occurrences starting 09/20/2022 until 10/20/2023 SPIROMETRY - BASELIN E AND POST DILATOR SPIROMETRY - BASELINE AND POST DILATOR PFT Routine SOB (shortness of breath) Second hand smoke exposure 09/28/2022 8:02 AM EDT [facility] [place] Work Phone: End: 09-02-2025 US Carotid arteries - bilateral US CAROTID ARTERIES [facility]IM [facility] LAB Vascular Lab Routine Dizziness Carotid stenosis, asymptomatic, bilateral 1 Occurrences starting 09/02/2024 until 09/02/2025 [facility] [place] Work Phone: Comment on above: 1 Occurrences starting 09/02/2024 until 09/02/2025 End: 09-21-2023 US CAROTID ARTERIES ASIM V[facility] LAB US CAROTID ARTERIES ASIM [facility] LAB Vascular Lab Routine Carotid stenosis, asymptomatic, bilateral 1 Occurrences starting 09/20/2022 until 09/21/2023 [facility] [place] Work Phone: Comment on above: 1 Occurrences starting 09/20/2022 until 09/21/2023 End: 07-18-2025 US Kidney - bilateral and Urinary bladder US KIDNEY/BLADDER Radiology Routine Microscopic hematuria Urinary frequency 1 Occurrences starting 06/18/2024 until 07/18/2025 [facility] [place] Work Phone: Comment on above: 1 Occurrences starting 06/18/2024 until 07/18/2025 US Kidney - bilatera l and Urinary bladder US KIDNEY/BLADDER Radiology Routine Microscopic hematuria Urinary frequency 06/24/2024 9:25 AM EST [facility] [place] Work Phone: End: 09-02-2025 US Lower extremity artery - bilateral PVR LEG [facility] Vascular Lab Routine Bilateral calf pain Diminished pulses in lower extremity 1 Occurrences starting 09/02/2024 until 09/02/2025 [facility] Comment on above: 1 Occurrences starting 09/02/2024 until 09/02/2025 End: 09-02-2025 US Lower extremity veins - bilateral US LEG VEIN DVT [facility] Vascular Lab Routine Bilateral leg edema Bilateral calf pain 1 Occurrences starting 09/02/2024 until 09/02/2025 [facility] Comment on above: 1 Occurrences starting 09/02/2024 until 09/02/2025 End: 10-30-2023 Us soft tissue head & neck real time imge docm US THYROID/PARATHYROID Radiology Routine Thyroid nodule 1 Occurrences starting 09/30/2022 until 10/30/2023 [facility] [place] Work Phone: Comment on above: 1 Occurrences starting 09/30/2022 until 10/30/2023 XR Knee - bilateral 4 Views XR KNEE GENERAL 4V AP BOTH/PA BOTH/LAT/MERC BILATERAL Radiology Routine Chronic pain of both knees 09/02/2024 4:40 PM EDT [facility] [place] Work Phone: End: 10-02-2025 XR Knee - bilateral 4 Views XR KNEE GENERAL 4V AP BOTH/PA BOTH/LAT/MERC BILATERAL Radiology Routine Chronic pain of both knees 1 Occurrences starting 09/02/2024 until 10/02/2025 [facility] Comment on above: 1 Occurrences starting 09/02/2024 until 10/02/2025 End: 04-09-2025 XR Pelvis Inlet and Outlet XR PELVIS 2V INLET/OUTLET Radiology Routine Multiple closed fractures of pelvis without disruption of pelvic ring, initial encounter (HCC) 1 Occurrences starting 03/10/2024 until 04/09/2025 [facility] [place] Work Phone: Comment on above: 1 Occurrences starting 03/10/2024 until 04/09/2025 XR Pelvis Inlet and Outlet XR PE LVIS 2V INLET/OUTLET Radiology Routine Multiple closed fractures of pelvis without disruption of pelvic ring, initial encounter ([facility]) 03/16/2024 8:55 AM EDT [facility] [place] Work Phone: [facility] MM OR [facility] Immunizations Immunization Date Immunization Notes Care Provider Fa denys 10-07-2024 pneumococcal Conjuga te, unspecified formulation Chencho Urbina MD Work Phone: [facility] 10-07-2024 COVID-19 vaccine, ag e 12+ yr ([employer] [facility]) Chencho Urbina MD Work Phone: [facility] 10-07-2024 pneumococcal conjuga te (PCV20) vaccine, 20 valent (PREVNAR 20) Chencho Urbina MD Work Phone: [facility] 03-25-2024 influenza, high dose seasonal, preservative-free Cassandra Arshad PA-C Work Phone: [facility] 02-26-2024 COVID-19 vaccine, ag e 12+ yr (P[employer]ER-BIONTECH) Chencho Urbina MD Work Phone: [facility] 05-08-2023 COVID-19 vaccine, ag e 12+ yr, season (PFIZER-BIONTECH) Immunization Raymond Work Phone: [facility] Work Phone: 04-13-2023 influenza (HD-IIV4) vaccine, age 65+ yr, high dose, quadrivalent, PF (FLUZONE HIGH-DOSE) Immunization Raymond Work Phone: [facility] 04-13-2023 influenza virus vaccine, unspecified formulation Kierra Alfaro MD Work Phone: [facility] 06-27-2022 COVID-19 booster vaccine, age 12+ yr, bivalent (PFIZER-BIONTECH) Cassandra Arshad PA-C Work Phone: [facility] 03-15-2022 influenza, high-dose , quadrivalent vaccine (FLUZONE HIGH DOSE QUADRIVALENT) Cassandra Arshad PA-C Work Phone: [facility] 03-15-2022 influenza virus vaccine, unspecified formulation Marge Hayes MD Work Phone: [facility] 09-15-2021 COVID-19 original vaccine, age 12+ yr, monovalent (PFIZER-BIONTECH - MENDEZ TOP) Cassandra Arshad PA-C Work Phone: [facility] 09-15-2021 COVID-19 vaccine, ag e 12+ yr (PFIZER-BIONTECH - PURPLE TOP) Chencho Urbina MD Work Phone: [facility] 03-29-2021 influenza, high dose seasonal, preservative-free Chencho Urbina MD Work Phone: [facility] 03-20-2021 COVID-19 vaccine, ag e 12+ yr (PFIZER-BIONTECH - PURPLE TOP) Chencho Urbina MD Work Phone: [facility] 07-29-2020 COVID-19 vaccine, ag e 12+ yr (PFIZER-BIONTECH - PURPLE TOP) Chencho Urbina MD Work Phone: [facility] 07-11-2020 COVID-19 vaccine, ag e 12+ yr (PFIZER-BIONTECH - PURPLE TOP) Chencho Urbina MD Work Phone: [facility] 02-16-2019 influenza, high dose seasonal, preservative-free Chencho Urbina MD Work Phone: [facility] 02-17-2018 influenza, high dose seasonal, preservative-free Chencho Urbina MD Work Phone: [facility] 01-14-2018 pneumococcal polysaccharide vaccine, 23 valent Chencho Urbina MD Work Phone: [facility] 02-26-2017 influenza, injectabl e, quadrivalent, preservative free Dr. Chencho Urbina MD Work Phone: [facility] 03-07-2016 influenza, injectabl e, quadrivalent, contains preservative Chencho Urbina MD Work Phone: [facility] Work Phone: 03-10-2015 influenza, high dose seasonal, preservative-free Chencho Urbina MD Work Phone: [facility] 06-16-2014 pneumococcal conjuga te vaccine, 13 valent Chencho Urbina MD Work Phone: [facility] 04-08-2014 influenza, seasonal, injectable Chencho Urbina MD Work Phone: [facility] 04-07-2013 influenza virus vaccine, unspecified formulation Chencho Urbina MD Work Phone: [facility] 04-23-2012 influenza virus vaccine, unspecified formulation Chencho Urbina MD Work Phone: [facility] 03-09-2011 influenza virus vaccine, unspecified formulation Chencho Urbina MD Work Phone: [facility] 03-14-2010 influenza virus vaccine, unspecified formulation Chencho Urbina MD Work Phone: [facility] Work Phone: 02-24-2010 pneumococcal polysaccharide vaccine, 23 valent Chencho Urbina MD Work Phone: [facility] Work Phone: Payers Date Payer Category Payer Self-pay 2019 Private Health Insurance MMO MED ICARE SUPPLEMENT [id number] 2019 Unknown MMO MMO MEDICARE SUPPLEMENT [id number] 2019-Present [phone] [address] [place] [address] Indemnity [id number] 2019 Unknown MMO MMO MEDICARE SUPPLEMENT [id number] 2019-Present [phone] [address] [place] [address] Indemnity [id number] 2015 Medicare [id number] 2004 Medicare MEDICARE MEDICAR E A AND B [id number] 2004-Present [phone] [address] [address] [place] [address] Medicare [id number] 2004 Medicare [id number] 2004 Medicare [id number] Unknown [id number] Unknown [id number] Unknown [id number] Unknown [id number] Unknown [id number] Unknown [id number] Unknown [id number] Social History Date Type Detail Facility Start: 12-18-2010 End: 02-13-2024 Tobacco smoking status SCIS Never smoked tobacco [facility] Work Phone: Start: 09-01-2021 End: 10-07-2024 Alcohol intake Current non-drinker of alcohol (finding) [facility] Start: 1940 Sex Assigned At Not on file C [facility] Start: 09-10-2021 End: 03-15-2022 Exposure to SARS-CoV-2 (event) Not sure [facility] Start: 12-18-2010 Tobacco use and exposure Smokeless tobacco non-user [facility] Work Phone: Start: 12-17-2022 End: 10-07-2024 History of Social function [facility] Work Phone: Start: 12-17-2022 End: 10-07-2024 Tobacco use panel [facility] Work Phone: Adult Depression Screening Assessment 1 [facility] Work Phone: (I/We) worried ieshacorin er (my/our) food would run out before (I/we) got money to buy more. Never true [facility] Work Phone: How often to you hav e a drink containing alcohol? Never [facility] Start: 01-31-2020 Alcohol Alcohol [facility] Start: 01-31-2020 Lives Lives [facility] Start: 04-30-2017 Tobacco Use Tobacco Use [facility] Start: 1940 Sex Assigned At Female W [facility] Functional Status Date Assessment Result Facility 10-07-2024 Total score [AUDIT-C] 0 10/08/19 12:54 PM Lana Marcano MA [facility] 03-26-2023 Are you deaf, or do you have serious difficulty hearing No 03/26/2023 7:49 AM More Delacruz RN [facility] 03-26-2023 Are you blind, or do you have serious difficulty seeing, even when wearing glasses No 03/26/2023 7:49 AM More Delacruz, MILLICENT [facility] 03-26-2023 Do you have serious difficulty walking or climbing stairs No 03/26/2023 7:49 AM More Delacruz, MILLICENT [facility] 03-26-2023 Do you have difficul ty dressing or bathing No 03/26/2023 7:49 AM More Delacruz, MILLICENT [facility] 03-26-2023 Because of a physica l, mental, or emotional condition, do you have difficulty doing errands alone such as visiting a physician's office or shopping No 03/26/2023 7:49 AM More Delacruz, MILLICENT [facility] Mental Status Date Assessment Result Facility 03-26-2023 Because of a physica l, mental, or emotional condition, do you have serious difficulty concentrating, remembering, or making decisions No 03/26/2023 7:49 AM More Delacruz, MILLICENT No [facility] Clinical Notes 09-01-2021 to 11-10-2024 Telephone Encounter - Merlyn Dwyer - 11/10/2024 9:43 AM EDTTelephone Encounter - Merlyn Dwyer - 11/10/2024 9:43 AM EDTTelephone Encounter - Venita Green LPN - 10/23/2024 10:31 AM EDT Note Date & Type Note Facility 11-10-2024 Telephone encounter Note Prescription Refill Information The patient has been identified by name and date of : Yes Caregiver verified no other encounters exist for this prescription request: Yes Caregiver confirmed with patient/requestor that no other refills are due, in the near future, with this provider at this time:yes The last office visit in the department: 10-21-24 Does the patient have a future office visit with this provider/department: Yes Requested Prescriptions Pending Prescriptions Disp Refills carvedilol (COREG) 12.5 mg tablet 180 tablet 1 Sig: Take 1 tablet by mouth two times a day. Merlyn Baptiste November 10, 2024 9:43 AM [facility] 11-10-2024 Miscellaneous Notes Prescription Refill Information The patient has been identified by name and date of : Yes Caregiver verified no other encounters exist for this prescription request: Yes Caregiver confirmed with patient/requestor that no other refills are due, in the near future, with this provider at this time:yes The last office visit in the department: 10-21-24 Does the patient have a future office visit with this provider/department: Yes Requested Prescriptions Pending Prescriptions Disp Refills carvedilol (COREG) 12.5 mg tablet 180 tablet 1 Sig: Take 1 tablet by mouth two times a day. Merlyn Baptiste November 10, 2024 9:43 AM documented in this encounter [facility] 10-23-2024 Telephone encounter Note Pt's daughter Barbie notified of same. Venita Green LPN [facility] 10-23-2024 Miscellaneous Notes Pt's daughter Barbie notified of same. Venita Green LPN Repeat sodium back in normal range. Please let patient/family know. Thanks. Cassandra Arshad PA-C documented in this encounter [facility] 10-23-2024 Telephone encounter Note Repeat sodium back in normal range. Please let patient/family know. Thanks. Cassandra Arshad PA-C [facility] 10-22-2024 Note HNO ID: [id number] Author: LANA SCHWARTZ MA Service: ? Author Type: Instructional Writer Type: Progress Notes Filed: 10/22/2024 14:16 Note Text: Scan on 10/21/2024 11:44 AM by Tao Lyons PA-C: Consultation - Lana Schwartz MA [facility] 10-22-2024 History of Present illness Narrative Scan on 10/21/2024 11:44 AM by Tao Lyons PA-C: Consultation - Lana Schwartz MA documented in this encounter [facility] 10-21-2024 Note HNO ID: [id number] Author: VENITA GREEN LPN Service: ? Author Type: LICENSED NURSE Type: Progress Notes Filed: 10/21/2024 12:43 Note Text: Scan on 10/21/2024 11:44 AM by Tao Lyons PA-C: Consultation - [facility] 10-21-2024 History of Present illness Narrative Scan on 10/21/2024 11:44 AM by Provider, Tao, ASTER: Consultation - documented in this encounter [facility] 10-16-[address] Eisenberg's office is requesting office notes and any labs, etc. All info has been faxed to her office. Venita Green LPN [facility] 10-16-[address] Eisenberg's office is requesting office notes and any labs, etc. All info has been faxed to her office. Venita Green LPN documented in this encounter [facility] 10-07-2024 Instructions Chencho Urbina MD - 10/07/2024 1:23 PM EDT Please take a handful of potato chips or pretzels once a day. Consider getting the shingrix vaccine for the prevention of shingles from a local pharmacy and the Tdap. Consider getting the RSV vaccine in Feb 2025. Sodium needs repeat at [facility] on 10/21/2024. Please get labs and urine test done on or after 03/26/2025 prior to your next visit at [facility] Please take Screening schedule The following prevention plan is recommended: Anxiety Screening Never done DTaP,Tdap,Td Vaccine(1 - Tdap) Never done Shingrix Vaccine(1 of 2) Never done RSV Vaccine(1 - 1-dose 75+ series) Never done Advance Directive Discussion due on 06/10/2024 Covid-19 Vaccine( season) due on 08/25/2024 WHAT YOU CAN DO TO PREVENT FALLS Many falls can be prevented. By making some changes, you can lower your chances of falling. Four things YOU can do to prevent falls for you* and your caregiver 1. Begin a regular exercise program Exercise is one of the most important ways to lower your chances of falling. It makes you stronger and helps you feel better. Exercises that improve balance and coordination (like [place]ell Chi) are the most helpful. Lack of exercise leads to weakness and increases your chances of falling. Ask your doctor or health care provider about the best type of exercise program for you. 2. Have your health care provider review your medicines Have your doctor or pharmacist review all the medicines you take, even dhmw-[id number]-[id number] medicines. As you get older, the way medicines work in your body can change. Some medicines, or combinations of medicines, can make you sleepy or dizzy and can cause you to fall. 3. Have your vision checked Have your eyes checked by an eye doctor at least once a year. You may be wearing the wrong glasses or have a condition like glaucoma or cataracts that limits your vision. Poor vision can increase your chances of falling. 4. Make your home safer About half of all falls happen at home. To make your home safer: Remove things you can trip over (like papers, books, clothes, and shoes) from stairs and places where you walk. Remove small throw rugs or use double-sided tape to keep the rugs from slipping. Keep items you use often in cabinets you can reach easily without using a step stool. Have grab bars put in next to your toilet and in the tub or shower. Use non-slip mats in the bathtub and on shower floors. Improve the lighting in your home. As you get older, you need brighter lights to see well. Hang light-weight curtains or shades to reduce glare. Have handrails and lights put in on all staircases. Wear shoes both inside and outside the house. Avoid going barefoot or wearing slippers. For more information, contact: Centers for Disease Control and Prevention www.cdc.gov/injury * This information may not apply if you have certain medical conditions. documented in this encounter [facility] 10-07-2024 History of Present illness Narrative Images from the original note were not included. Leonor Pal is a 83 year old female here for a Medicare wellness visit. Medicare Health Risk Assessment General Health Fair Exercise: Minutes/Day 30 min Exercise: Days/Week On average, how many days per week do you engage in moderate to strenuous exercise (like a brisk walk)?: 7 days (exercising class at [facility]) Alcohol: Daily Use Never Alcohol: Drinks/Day Patient does not drink Alcohol: 6 or more drinks Never Feel off balance Yes (uses walker/cane) Concerns: Teeth/Dentures No Concerns: Sexual function No Troubled by feelings None of the above Frequency: Eating healthy diet Nearly every day ADLs requiring help None of the above Safety precautions in home/vehicle No Smoke, vape, chews tobacco No Difficulty hearing No Difficulty seeing No Current Providers Specialists: I have reviewed specialist-related care of the patient in the medical record. Current care team: Patient Care Team: Chencho Urbina MD as PCP - General (Family Medicine) Chencho Urbina MD as Referring (Family Medicine) Elisa Doherty APRN.CNP as Pick Up Man (Family Medicine) Cassandra Arshad PA-C as Pick Up Man (Family Medicine) Dr. Mckeon: Endo. Neuro Surgery Seeing Terri bush: derm Medical/Family history review Reviewed and updated problem list, medical/surgical/family/social history, medications, and allergies. Opioid use review Opioid Medications (last 90 days) No data to display Anxiety/Depression screening PHQ-2 Score: 0 (Lower risk for depression) Recommendation: no further intervention at this time Cognitive screening Score: 5 Cognitive screening reviewed and No further action needed (score 3-5). Functional Observation Was the patient's Timed Up & Go test unsteady or >= 12 seconds? No Advance Care Planning Surrogate decision maker documented and/or advance directives scanned in chart Measurements BP 132/84 Pulse 69 Resp 18 Ht 157.5 cm (5' 2) Wt 64 kg (141 lb) BMI 25.79 kg/m Vision Screening: Follows with optometry/ophthalmology Assessment/Plan Medicare annual wellness visit, subsequent (Z00.00) - Counseled on healthy diet and regular exercise - Fall avoidance information provided - Personalized prevention plan provided See Below Chief Complaint Patient presents with: Medicare Wellness Exam HPI Leonor Pal is a 83 year old female who presents here today for Chronic Medical Conditions. and Medicare Annual Visit. Patient with hx of carotid artery disease, elevated blood sugar, HTN, GERD, Iron def anemia, hyperlipidemia, CKD stage 3, hyponatremia, chronic back pain, tinnitus as well as those as below. Patient is currently living in [facility]. Is happy with this move and her anxiety is much less. Patient has been doing well. No new issues or concerns. Past medical history, appointments, medications, allergies reviewed. Previous Medical History PAST MEDICAL HISTORY Diagnosis Date Advance directive discussed with patient 09/01/2021 Discussed 08/2021 Age-related osteoporosis without current pathological fracture 05/14/2023 Benign paroxysmal positional vertigo 01/14/2019 Carotid stenosis, asymptomatic, bilateral 07/21/2018 US 07/2018: less than 20% asim. Cholecystitis, unspecified Chronic right-sided low back pain Chronic right-sided thoracic back pain 07/17/2018 Colon Cancer(cecum) 09/29/[address] 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 Esparza Facial basal cell cancer 01/12/2019 Left nasal 12/[address] Esparza Family history of early CAD 01/14/2018 GERD without esophagitis HH (hiatus hernia) 09/29/2009 History of unsteady gait 03/22/2023 Hypomagnesemia 03/22/2023 Hyponatremia 03/22/2023 Saw Neph 02/2024 and was placed on salt tabs. Patient stopped the tabs and Na has been fine. Iron deficiency anemia, unspecified Living will on file 09/01/2021 DPA: Kervin () Living will on file at physician's office 09/01/2021 DPA: Kervin () Low blood magnesium 01/14/2019 Malignant neoplasm of colon (HCC) s/p right hemicolectomy (Dr. Alan Davila) Medicare annual wellness visit, subsequent 07/17/2018 Medicare Part B:11/08/2004 Last done: 07/17/2018 Mixed hyperlipidemia 01/03/2007 Nontoxic multinodular goiter 02/20/2023 Personal history of colon cancer 12/21/2013 s/p right hemicolectomy Primary hyperparathyroidism (HCC) 04/10/2023 Seeing Endo- Dr. Libertad Mckeon RBBB 03/22/2023 Sciatica 06/28/2011 Seasonal allergic rhinitis Second hand smoke exposure 01/14/2018 Sensory hearing loss, bilateral 01/21/2018 Situational depression 09/20/2022 Squamous cell skin cancer 09/21/2021 Neck: removed 09/2021 Stage 3a chronic kidney disease (HCC) 01/14/2018 Thyroid nodule 09/30/2022 Tinnitus of left ear 01/21/[address] Carrero Previous Surgical History PAST SURGICAL HISTORY Procedure Laterality Date 2D ECHO (EXEP) 05/01/2017 65%, with mild diast dysf and 1+ AL. CARDIAC STRESS TEST 05/01/2017 negative CHOLECYSTECTOMY 1985 Cholecystectomy COLONOSCOPY 07/13/2016 Repeat 07/2021 COLONOSCOPY FLX DX W/COLLJ SPEC WHEN PFRMD 12/22/2010 repeat in -2013 COLONOSCOPY FLX DX W/COLLJ SPEC WHEN PFRMD 01/08/2014 per repeat in 3-5 years COLONOSCOPY W/BIOPSY SINGLE/MULTIPLE 09/29/2009 Cecal carcinoma EGD TRANSORAL BIOPSY SINGLE/MULTIPLE 09/29/2009 Small HH HEART CATHETERIZATION 07/30/2018 normal coronaries PAST SURGICAL HISTORY OF 10/2009 Rt hemicolectomy Family History FAMILY HISTORY Problem Relation Age of Onset Cancer Sister Metastatic cancer (lung and brain; ?primary); 2007 Patient Allergies ALLERGIES Allergen Reactions Penicillins Swelling, Myalgia Tolerated cephalexin 10/2022 Lisinopril Cough Vioxx [Rofecoxib] Unknown Zoloft [Sertraline] GI Upset Patient thought it made her feel sick, however she stated she was taking the new med 3 times a day and didn't start the other medication. (Zoloft and ativan were prescribed at same time). So we question if she was taking the correct medication or taking it as prescribed. Current Medications Current Outpatient Medications on File Prior to Visit Medication Sig nitrofurantoin monohydrate and macrocrystal (MACROBID) 100 mg capsule Take 1 capsule by mouth two times a day with meals for 7 days. Valsartan-hydroCHLOROthiazide (DIOVAN HCT) 80-12.5 mg per tablet Take 1 tablet by mouth once daily. rOPINIRole (REQUIP) 0.25 mg tablet Take 1 tablet by mouth daily at bedtime. FLUoxetine (PROZAC) 10 mg capsule Take 1 capsule by mouth once daily. losartan (COZAAR) 25 mg tablet Take 1 tablet by mouth once daily. carvedilol (COREG) 12.5 mg tablet Take 1 tablet by mouth two times a day. omeprazole (PRILOSEC) 40 mg capsule Take 1 capsule by mouth once daily. Take 30 minutes before breakfast. Magnesium Oxide 250 mg magnesium tab Take 1 in morning aspirin, enteric coated (ASPIRIN, ENTERIC COATED) 81 mg EC tablet Take 1 tablet by mouth once daily. meclizine (ANTIVERT) 12.5 mg tab Take 1 tablet by mouth two times a day. multivit-min/iron/FA/vit K/lut (CENTRUM SILVER WOMEN ORAL) Take by mouth. jzmayqs-nwlqykedo-fjxylmn D3 500 mg-5 mcg (200 unit) per tablet Take 1 tablet by mouth two times a day with meals. acetaminophen (TYLENOL) 500 mg tablet Take 1 tablet by mouth every 4 hours as needed for pain. No current facility-administered medications on file prior to visit. Social History Social History Tobacco Use Smoking status: Never Smokeless tobacco: Never Vaping Use Vaping status: Never Used Substance Use Topics Alcohol use: No Drug use: No Review of Symptoms REVIEW OF SYSTEMS GENERAL: No weight loss, malaise or fevers HEENT: Negative for frequent or significant headaches, No changes in hearing or vision, no nose bleeds or other nasal problems NECK: Negative for lumps, goiter, pain and significant neck swelling RESPIRATORY: Negative for cough, hemoptysis, wheezing, COPD, dyspnea or shortness of breath CARDIOVASCULAR: Negative for chest pain, increased leg swelling, hypertension, CHF or palpitations GI: No nausea, vomiting, or diarrhea, No heartburn or reflux symptoms, and no blood : No history of dysuria, frequency or blood MUSCULOSKELETAL: Negative for new joint pain or swelling, back pain or muscle pain. Right neck is better with doing HEP SKIN: sees derm PSYCH: Negative for sleep disturbance, mood disorder and recent psychosocial stressors HEMATOLOGY/LYMPHOLOGY: Negative for prolonged bleeding, bruising easily or swollen nodes ENDOCRINE: Negative for cold or heat intolerance, polyuria, polydipsia and goiter NEURO: No history of headaches, syncope, paralysis, seizures or tremors EXAM: BP 132/84 Pulse 69 Resp 18 Ht 157.5 cm (5' 2) Wt 64 kg (141 lb) BMI 25.79 kg/m Last 4 Encounter Wt Readings: Date: Wt: 10/07/2024 64 kg (141 lb) 09/24/2024 64 kg (141 lb 1.5 oz) 09/02/2024 64.9 kg (143 lb) 08/17/2024 65.3 kg (144 lb) General Appearance: Well appearing, alert, in no acute distress, well-hydrated, well nourished.. Skin: sees Derm. Head: Normocephalic, no masses, lesions, tenderness or abnormalities. Eyes: Anicteric sclera. Pupils are equally round and reactive to light. Extraocular movements are intact. . Ears: External ears, TM's normal, canals clear. Nose/Sinuses: Nares normal, septum midline, mucosa normal, no drainage or sinus tenderness. Oropharynx: Lips, mucosa, and tongue normal, teeth and gums normal, oropharynx normal. Neck: Supple, no adenopathy; thyroid symmetric, normal size, no bruits. Lungs: Lungs clear to auscultation. No wheezing, rhonchi, rales.. Heart: RRR without murmur, gallop, or rubs. No ectopy. Abdomen: Normal abdominal exam, Abdomen soft, non-tender. Bowel sounds normal. No masses, organomegaly. Extremities: No deformities, edema, skin discoloration, Good capillary refill. . Musculoskeletal: Muscular strength intact, No joint swelling, deformity, or tenderness. Peripheral Pulses: Normal. Neurologic: Gait normal. Reflexes normal and symmetric. Sensation to light touch and crainal nerves 2-12 intact.. Health Maintenance List Anxiety Screening Never done DTaP,Tdap,Td Vaccine(1 - Tdap) Never done Shingrix Vaccine(1 of 2) Never done RSV Vaccine(1 - 1-dose 75+ series) Never done Advance Directive Discussion due on 06/10/2024 Covid-19 Vaccine( season) due on 08/25/2024 Bone Density Screening due on 03/18/2025 Diabetes Screening due on 10/07/2027 Influenza Vaccine Completed Pneumococcal Vaccine: 50+ Completed Data reviewed Latest Ref Rng 02/20/2024 03/25/2024 08/29/2024 10/06/2024 WBC 3.70 - 11.00 k/uL 10.68 8.93 RBC 3.90 - 5.20 m/uL 3.63 (L) 3.97 Hemoglobin 11.5 - 15.5 g/dL 12.2 12.4 Hematocrit 36.0 - 46.0 % 35.8 (L) 36.4 MCV 80.0 - 100.0 fL 98.6 91.7 MCH 26.0 - 34.0 pg 33.6 31.2 MCHC 30.5 - 36.0 g/dL 34.1 34.1 RDW-CV 11.5 - 15.0 % 15.0 13.1 Platelet Count 150 - 400 k/uL 368 324 MPV 9.0 - 12.7 fL 9.9 10.0 Neut% % 68.7 58.7 Abs Neut (ANC) 1.45 - 7.50 k/uL 7.34 5.24 Lymph% % 13.2 27.0 Abs Lymph 1.00 - 4.00 k/uL 1.41 2.41 [place]% % 10.0 12.1 Abs [place] <0.87 k/uL 1.07 (H) 1.08 (H) Eosin% % 6.6 1.1 Abs Eosin <0.46 k/uL 0.70 (H) 0.10 Baso% % 0.7 0.8 Abs Baso <0.11 k/uL 0.07 0.07 Immature Gran % % 0.8 0.3 IMMATURE GRANS (ABS) <0.10 k/uL 0.09 0.03 NRBC /100 WBC 0.0 0.0 Absolute nRBC <0.01 k/uL <0.01 <0.01 DTYPE Auto Auto Protein, Total 6.3 - 8.0 g/dL 7.1 6.8 Albumin 3.9 - 4.9 g/dL 4.1 4.2 Calcium 8.5 - 10.2 mg/dL 8.9 9.0 9.2 Bilirubin, Total 0.2 - 1.3 mg/dL 0.4 0.3 Alkaline Phosphatase 34 - 123 U/L 71 68 AST 13 - 35 U/L 25 20 ALT 7 - 38 U/L 11 10 Glucose 74 - 99 mg/dL 100 (H) 67 (L) 123 (H) BUN 7 - 21 mg/dL 29 (H) 11 14 Creatinine 0.58 - 0.96 mg/dL 1.39 (H) 1.01 (H) 1.17 (H) Sodium 136 - 144 mmol/L 132 (L) 136 129 (L) Potassium 3.7 - 5.1 mmol/L 4.4 4.2 4.1 Chloride 98 - 107 mmol/L 103 102 93 (L) CO2 22 - 30 mmol/L 17 (L) 23 23 Anion Gap 8 - 15 mmol/L 12 11 13 eGFR >=60 mL/min/1.73m 37 (L) 55 (L) 46 (L) Total Cholesterol, Nonfasting <200 mg/dL 146 191 Triglycerides, Nonfasting <150 mg/dL 96 131 HDL Cholesterol, Nonfasting >39 mg/dL 51 56 LDL Cholesterol Calculated, Nonfasting <100 mg/dL 76 112 (H) Non HDL Cholesterol, Nonfasting <130 mg/dL 95 135 (H) VLDL Cholesterol, Nonfasting <30 mg/dL 19 22 Total Chol/HDL Ratio, Nonfasting <5.10 mg/dL 2.86 3.41 LDL/HDL Ratio, Nonfasting <2.54 mg/dL 1.49 2.00 Iron 41 - 186 ug/dL 87 TIBC 232 - 386 ug/dL 325 Transferrin Saturation 15.0 - 57.0 % 26.8 Hemoglobin A1C 4.3 - 5.6 % 5.4 5.5 Estimated Average Glucose mg/dL 108 111 Magnesium 1.7 - 2.3 mg/dL 1.7 1.6 (L) TSH 0.270 - 4.200 mIU/L 1.580 2.200 2.440 Vitamin B12 232 - 1,245 pg/mL 710 A/P ASSESSMENT/PLAN: 1. Medicare annual wellness visit, subsequent - ICD9: V70.0, ICD10: Z00.00 (primary diagnosis) - Counseled on healthy diet and regular exercise - Follow up for annual exam in one year - updated on COVID and Prev-20 Advised on Tdap, RSV and shingrix vaccines. 2. Essential hypertension - ICD9: 401.9, ICD10: I10 - Controlled - Continue current medications - Recommend home blood pressure monitoring, to bring results to next visit - Encouraged sodium restriction, DASH or Mediterranean diet - Recommend regular aerobic exercise 3. Mixed hyperlipidemia - ICD9: 272.2, ICD10: E78.2 - Controlled - Counseled on healthy diet and regular exercise 4. Elevated fasting blood sugar - ICD9: 790.21, ICD10: R73.01 - controlled with life style. 5. GERD without esophagitis - ICD9: 530.81, ICD10: K21.9 - Continue treatment with Prilosec 40 mg QD 6. Iron deficiency anemia, unspecified iron deficiency anemia type - ICD9: 280.9, ICD10: D50.9 - controlled on recent labs. No changes. 7. Nonruptured cerebral aneurysm (HCC) - ICD9: 437.3, ICD10: I67.1 - follows with neurosurgery yearly for imaging. 8. Primary hyperparathyroidism (HCC) - ICD9: 252.01, ICD10: E21.0 - follows with Endo 9. Thyroid nodule - ICD9: 241.0, ICD10: E04.1 - as per #8 10. Stage 3b chronic kidney disease (HCC) - ICD9: 585.3, ICD10: N18.32 - eGFR: 46 Improving - Counseled on avoiding NSAIDs, adequate hydration - ACEi/ARB prescribed: Yes 11. Carotid stenosis, asymptomatic, bilateral - ICD9: 433.10, 433.30, ICD10: I65.23 - 12. Current mild episode of major depressive disorder without prior episode - ICD9: 296.21, ICD10: F32.0 - stable on Prozac. 13. Situational depression - ICD9: 309.0, ICD10: F43.21 - as per #12 14. Malignant neoplasm of colon, unspecified part of colon (HCC) - ICD9: 153.9, ICD10: C18.9 - does not want any further colonoscopies. 15. Hypomagnesemia - ICD9: 275.2, ICD10: E83.42 - Patient eating better in assisted living so will await labs in 6 months. 16. Age-related osteoporosis without current pathological fracture - ICD9: 733.01, ICD10: M81.0 - Reviewed the need for Calcium and Vitamin D supplements and weight bearing exercise as tolerated - following with Endo 17. Benign paroxysmal positional vertigo, unspecified laterality - ICD9: 386.11, ICD10: H81.10 Cont prn - MECLIZINE 12.5 MG TABLET prn 18. Advance directive discussed with patient - ICD9: V65.49, ICD10: Z71.89 - up to date 19. Encounter for screening examination for other mental health and behavioral disorders - ICD9: V79.8, ICD10: Z13.39 - ANXIETY SCREENING 20. Need for vaccination - ICD9: V05.9, ICD10: Z23 - PFIZER-BIONTECH COVID-19 VACCINE AGE 12+ YR (COMIRNATY): given - PNEUMOCOCCAL VACCINE, 20 VALENT (PREVNAR 20): given 21. Hyponatremia - ICD9: 276.1, ICD10: E87.1 - patient to eat a handful of pretzels or potato chips once a day - recheck sodium in 2 weeks. Order given 22. RLS (restless legs syndrome) - ICD9: 333.94, ICD10: G25.81 - cont the Requip Requested Prescriptions Signed Prescriptions Disp Refills meclizine (ANTIVERT) 12.5 mg tab 180 tablet 3 Sig: Take 1 tablet by mouth two times a day. omeprazole (PRILOSEC) 40 mg capsule 90 capsule 1 Sig: Take 1 capsule by mouth once daily. Take 30 minutes before breakfast. F/u 6 months routine check Lipid, A1c, BMP, Mg prior I spent a total of 40 minutes on the date of the service which included preparing to see the patient, hcqj-tz-nvlw patient care, completing clinical documentation, performing a medically appropriate examination, counseling and educating the patient/family/caregiver and ordering medications, tests, or procedures. Chencho Urbina MD documented in this encounter [facility] 10-07-2024 Note [facility] 09-30-2024 Telephone encounter Note The following approved medication requests have been transmitted electronically. Requested Prescriptions Signed Prescriptions Disp Refills nitrofurantoin monohydrate and macrocrystal (MACROBID) 100 mg capsule 14 capsule 0 Sig: Take 1 capsule by mouth two times a day with meals for 7 days. Authorizing Provider: CHENCHO URBINA MD [facility] 09-30-2024 Miscellaneous Notes The following approved medication requests have been transmitted electronically. Requested Prescriptions Signed Prescriptions Disp Refills nitrofurantoin monohydrate and macrocrystal (MACROBID) 100 mg capsule 14 capsule 0 Sig: Take 1 capsule by mouth two times a day with meals for 7 days. Authorizing Provider: CHENCHO URBINA MD Spoke nurse and they indicate to send to her local pharmacy and they will meat pickler for her. [facility] is listed. We also received in the culture. She indicated as of today patient still feels like she has a UTI. Lana Schwartz MA Contact [facility] [phone] and find out where they want me to send an antibiotic to for Katherin's UTI. I can send in an antibiotic now and when the culture gets back if no sensitive change it. documented in this encounter [facility] 09-30-2024 Telephone encounter Note Spoke nurse and they indicate to send to her local pharmacy and they will meat pickler for her. [facility] is listed. We also received in the culture. She indicated as of today patient still feels like she has a UTI. Lana Schwartz MA [facility] 09-30-2024 Telephone encounter Note Contact [facility] [phone] and find out where they want me to send an antibiotic to for Katherin's UTI. I can send in an antibiotic now and when the culture gets back if no sensitive change it. [facility] 09-24-2024 Instructions Elisa Doherty APRN.MARIAH - 09/24/2024 9:32 AM EDT Cancel appointment with Bud, Lester with Dr. Eisenberg at [facility]. documented in this encounter [facility] 09-24-2024 Note [facility] 09-24-2024 History of Present illness Narrative Chief Complaint Patient presents with: UTI Headache HPI Leonor Pal is a 83 year old female who presents here today for Above Complaints.. Patient presents for BP follow up. Patient was seen 09/02 and was switched from losartan to valsartan-HCTZ as well as started on prozac for depression. Patient reports improvement in RLS and BP. Patient reports she moved into [facility] last night so the last couple of weeks have been stressful. Past medical history, appointments, medications, allergies reviewed. Previous Medical History PAST MEDICAL HISTORY Diagnosis Date Advance directive discussed with patient 09/01/2021 Discussed 08/2021 Age-related osteoporosis without current pathological fracture 05/14/2023 Benign paroxysmal positional vertigo 01/14/2019 Carotid stenosis, asymptomatic, bilateral 07/21/2018 US 07/2018: less than 20% asim. Cholecystitis, unspecified Chronic right-sided low back pain Chronic right-sided thoracic back pain 07/17/2018 Colon Cancer(cecum) 09/29/[address] Davlia Current mild episode of major depressive disorder without prior episode 09/02/2024 Disorder of bone and cartilage, unspecified Diverticulitis of colon (without mention of hemorrhage)(562.11) Elevated fasting blood sugar 07/05/2006 Essential hypertension white coat HTN Facial basal cell cancer 01/12/2019 Left nasal 12/[address] Esparza Facial basal cell cancer 01/12/2019 Left nasal 12/[address] Esparza Family history of early CAD 01/14/2018 GERD without esophagitis HH (hiatus hernia) 09/29/2009 History of unsteady gait 03/22/2023 Hypomagnesemia 03/22/2023 Hyponatremia 03/22/2023 Saw Neph 02/2024 and was placed on salt tabs. Patient stopped the tabs and Na has been fine. Iron deficiency anemia, unspecified Living will on file 09/01/2021 DPA: Kervin () Living will on file at physician's office 09/01/2021 DPA: Kervin () Low blood magnesium 01/14/2019 Malignant neoplasm of colon (HCC) s/p right hemicolectomy (Dr. Alan Davila) Medicare annual wellness visit, subsequent 07/17/2018 Medicare Part B:11/08/2004 Last done: 07/17/2018 Mixed hyperlipidemia 01/03/2007 Nontoxic multinodular goiter 02/20/2023 Personal history of colon cancer 12/21/2013 s/p right hemicolectomy Primary hyperparathyroidism (HCC) 04/10/2023 Seeing Endo- Dr. Libertad Mckeon RBBB 03/22/2023 Sciatica 06/28/2011 Seasonal allergic rhinitis Second hand smoke exposure 01/14/2018 Sensory hearing loss, bilateral 01/21/2018 Situational depression 09/20/2022 Squamous cell skin cancer 09/21/2021 Neck: removed 09/2021 Stage 3a chronic kidney disease (HCC) 01/14/2018 Thyroid nodule 09/30/2022 Tinnitus of left ear 01/21/[address] Carrero Previous Surgical History PAST SURGICAL HISTORY Procedure Laterality Date 2D ECHO (EXEP) 05/01/2017 64%, with mild diast dysf and 1+ AL. CARDIAC STRESS TEST 05/01/2017 negative CHOLECYSTECTOMY 1985 Cholecystectomy COLONOSCOPY 07/13/2016 Repeat 07/2021 COLONOSCOPY FLX DX W/COLLJ SPEC WHEN PFRMD 12/22/2010 repeat in COLONOSCOPY FLX DX W/COLLJ SPEC WHEN PFRMD 01/08/2014 per repeat in 3-5 years COLONOSCOPY W/BIOPSY SINGLE/MULTIPLE 09/29/2009 Cecal carcinoma EGD TRANSORAL BIOPSY SINGLE/MULTIPLE 09/29/2009 Small HH HEART CATHETERIZATION 07/30/2018 normal coronaries PAST SURGICAL HISTORY OF 10/2009 Rt hemicolectomy Family History FAMILY HISTORY Problem Relation Age of Onset Cancer Sister Metastatic cancer (lung and brain; ?primary); 2007 Patient Allergies ALLERGIES Allergen Reactions Penicillins Swelling, Myalgia Tolerated cephalexin 10/2022 Lisinopril Cough Vioxx [Rofecoxib] Unknown Zoloft [Sertraline] GI Upset Patient thought it made her feel sick, however she stated she was taking the new med 3 times a day and didn't start the other medication. (Zoloft and ativan were prescribed at same time). So we question if she was taking the correct medication or taking it as prescribed. Current Medications Current Outpatient Medications on File Prior to Visit Medication Sig Valsartan-hydroCHLOROthiazide (DIOVAN HCT) 80-12.5 mg per tablet Take 1 tablet by mouth once daily. rOPINIRole (REQUIP) 0.25 mg tablet Take 1 tablet by mouth daily at bedtime. FLUoxetine (PROZAC) 10 mg capsule Take 1 capsule by mouth once daily. losartan (COZAAR) 25 mg tablet Take 1 tablet by mouth once daily. carvedilol (COREG) 12.5 mg tablet Take 1 tablet by mouth two times a day. omeprazole (PRILOSEC) 40 mg capsule Take 1 capsule by mouth once daily. Take 30 minutes before breakfast. Magnesium Oxide 250 mg magnesium tab Take 1 in morning aspirin, enteric coated (ASPIRIN, ENTERIC COATED) 81 mg EC tablet Take 1 tablet by mouth once daily. meclizine (ANTIVERT) 12.5 mg tab Take 1 tablet by mouth two times a day. multivit-min/iron/FA/vit K/lut (CENTRUM SILVER WOMEN ORAL) Take by mouth. xxtwija-yfrsmvpki-zycbjyv D3 500 mg-5 mcg (200 unit) per tablet Take 1 tablet by mouth two times a day with meals. acetaminophen (TYLENOL) 500 mg tablet Take 1 tablet by mouth every 4 hours as needed for pain. No current facility-administered medications on file prior to visit. Social History Social History Tobacco Use Smoking status: Never Smokeless tobacco: Never Vaping Use Vaping status: Never Used Substance Use Topics Alcohol use: No Drug use: No Review of Symptoms REVIEW OF SYSTEMS SEE HPI EXAM: BP 132/80 Pulse 80 Wt 64 kg (141 lb 1.5 oz) BMI 24.39 kg/m General Appearance: Well appearing, alert, in no acute distress, well-hydrated, well nourished. Lungs: Lungs clear to auscultation. No wheezing, rhonchi, rales. Heart: RRR without murmur, gallop, or rubs. No ectopy. Extremities: No deformities, edema, skin discoloration, clubbing or cyanosis. Good capillary refill. Peripheral Pulses: Normal. Health Maintenance List Anxiety Screening Never done DTaP,Tdap,Td Vaccine(1 - Tdap) Never done Shingrix Vaccine(1 of 2) Never done RSV Vaccine(1 - 1-dose 75+ series) Never done Advance Directive Discussion due on 06/10/2024 Covid-19 Vaccine( season) due on 08/25/2024 Bone Density Screening due on 03/18/2025 Diabetes Screening due on 08/30/2027 Influenza Vaccine Completed Pneumococcal Vaccine: 50+ Completed Data reviewed Last 5 Encounter BP Readings: Date: BP: 09/24/2024 132/80 09/02/2024 169/101 08/17/2024 140/90 06/15/2024 154/92[bp average with machine[ 06/08/2024 152/89 ASSESSMENT/PLAN: 1. Essential hypertension - ICD9: 401.9, ICD10: I10 (primary diagnosis) - Controlled - Continue current medications - Start hydrochlorothiazide, valsartan - Recommend home blood pressure monitoring, to bring results to next visit - Encouraged sodium restriction, DASH or Mediterranean diet - Recommend regular aerobic exercise - Discussed need for and benefit of weight loss. BMI 24.39 kg/(m^2) 2. RLS (restless legs syndrome) - ICD9: 333.94, ICD10: G25.81 -Continue ropinirole 3. Situational depression - ICD9: 309.0, ICD10: F43.21 -Continue prozac, re-eval effectiveness with Dr. Ciara Doherty APRN.SITE ADMINISTRATOR documented in this encounter [facility] 09-18-2024 Telephone encounter Note Forms signed and faxed. Lana Schwartz MA [facility] 09-18-2024 Miscellaneous Notes Forms signed and faxed. Lana Schwartz MA Forms completed Patient daughter Barbie calling back, she said Jamie is fine with the office notes from the August visit. He is asking if PCP could sign the plan of care form and fax it back. Daughter said they are paying out of pocket for her stay, not a Medicare issue. Mother furniture is moved there and she just needs the form signed please. Phoned [facility] spoke to Jamie. Went over notes below from Dr Urbina with understanding. Patient son upset that patient can not move in next week as planned, they are self pay. Jamie asking if office notes from September 02 visit be faxed to [phone]. Printed and faxed as requested. This number pt is wanting us to call is not correct. Called pt to get correct number looks like numbers were transposed below . Correct number is [phone] Called facility and Jamie has left for the day. Left a message with Isabella as to the pt not being seen until the and asking him to return call. Patient calling asking about forms to be able to move to [facility]. Went over notes below. Patient asking if could call Jamie Jacob at [facility] [phone]. Please advise [facility] that patient will be seeing me on 10/07/2024 for her medicare wellness and her complete PE. Forms can not be completed till that time. If patient can be seen sooner that is fine as well. Formers were received and given to provider to complete. Lana Schwartz MA Pt is calling to check on form that [place] sent to pcp. Pt reports [facility] states they sent form a few days ago. Pt reports this form needs filled out and sent back to [facility]. Pt is looking to move into [facility]. If form has not been received please call [facility] to let them know. Amy Evans LPN documented in this encounter [facility] 09-18-2024 Telephone encounter Note Forms completed [facility] 09-18-2024 Telephone encounter Note Patient daughter Barbie calling back, she said Jamie is fine with the office notes from the August visit. He is asking if PCP could sign the plan of care form and fax it back. Daughter said they are paying out of pocket for her stay, not a Medicare issue. Mother furniture is moved there and she just needs the form signed please. [facility] 09-18-2024 Telephone encounter Note Phoned Grac[facility] spoke to Jamie. Went over notes below from Dr Urbina with understanding. Patient son upset that patient can not move in next week as planned, they are self pay. Jamie asking if office notes from September 02 visit be faxed to [phone]. Printed and faxed as requested. [facility] 09-17-2024 Telephone encounter Note This number pt is wanting us to call is not correct. Called pt to get correct number looks like numbers were transposed below . Correct number is [phone] Called facility and Jamie has left for the day. Left a message with Isabella as to the pt not being seen until the and asking him to return call. [facility] 09-17-2024 Telephone encounter Note Patient calling asking about forms to be able to move to [facility]. Went over notes below. Patient asking if could call Jamie Phelpsboyd at [facility] [phone]. [facility] 09-15-2024 Telephone encounter Note Please advise Graciela that patient will be seeing me on 10/07/2024 for her medicare wellness and her complete PE. Forms can not be completed till that time. If patient can be seen sooner that is fine as well. [facility] 09-15-2024 Telephone encounter Note Formers were received and given to provider to complete. Lana Schwartz MA [facility] 09-15-2024 Telephone encounter Note Pt is calling to check on form that [facility] [place] sent to pcp. Pt reports [facility] states they sent form a few days ago. Pt reports this form needs filled out and sent back to [facility]. Pt is looking to move into [place]. If form has not been received please call [facility] to let them know. Amy Evans LPN [facility] 09-09-2024 Telephone encounter Note Knee xrays show progressive osteoarthrosis bilaterally. I can place referral to orthopedics for patient if she would like so she can discuss options. Dianne Rueda APRN.CNP [facility] Work Phone: 09-09-2024 Miscellaneous Notes Knee xrays show progressive osteoarthrosis bilaterally. I can place referral to orthopedics for patient if she would like so she can discuss options. Dianne Rueda APRN.MARIAH documented in this encounter [facility] 09-02-2024 History of Present illness Narrative Radiology Service Progress Note PATIENT NAME: Leonor Pal DATE OF SERVICE: September 02, 2024 TIME: 4:22 PM PATIENT IDENTITY VERIFICATION COMPLETED USING TWO (2) IDENTIFIERS: Name and Date of confirmed by patient verbally. FALL SCREENING: Has the patient had 2 falls in the last year or 1 fall with injury or currently using an Ambulatory Assistive Device (Walker, Cane, Wheelchair, Crutches, etc.)? No PATIENT GENDER DATA: Assigned female at . status: : No status: NO. PATIENT RELEVANT IMPLANT DATA REVIEWED: Not Applicable PATIENT PRESENTS WITH AN IMPLANTABLE OR ATTACHED ENGINEERING DESIGN SUPERVISOR: No RADIOLOGY DEPARTMENT: General X-ray: Exam(s) Completed: Lower Extremity X-Ray(s): Knee, AP / Lat / Tunne / Merchant Bilateral and Wt. Bearing PERIPHERAL IV DATA: Not applicable SIGNED BY: RT Marlin(R) September 02, 2024 4:22 PM documented in this encounter [facility] 09-02-2024 Note [facility] 09-02-2024 Instructions Chencho Urbina MD - 09/02/2024 4:04 PM EDT We are going to stop the losartan and start valsartan/hydrochlorothiazide 80/12.5 We are going to start Ropinirole at night to see if it stops the leg poking. We are starting Prozac (fluoxitine) 10 mg a day for moods documented in this encounter [facility] 09-02-2024 Note [facility] 09-02-2024 History of Present illness Narrative Chief Complaint Patient presents with: UTI: Depression/right sciatica/UTI frequency over the last few months HPI Leonor Pal is a 83 year old female who presents here today for UTI, Depression; right leg swelling/numbness/foot. Patient has been having dizziness off/on. Headaches almost daily. Patient was treated for UTI on 08/17/2024. She states she is still having urgency and only dribbling. Pt reports at night she is able to urinate fine Patient has pain in her knees and at times with standing and they will catch and then let go. No giving out. C/o swelling in her legs much more so in the right then the left. Not any better when she has her legs elevated. At times has a poking/ stinging pain in the top of the right foot and in the calf of the right leg. Tends to happen the most when in her recliner and legs are elevated. Patient also feels her depression is worse. Has been crying. Mad at her for passing away. S: can fall asleep ok and no staying in bed. I: no decreased interest G: some increased feels of guilt E: ok C: not reduced A: no changes. P: some retardation. S: no suicidal ideation or homicidal ideation. Does wish she would go to sleep and not wake up. Past medical history, appointments, medications, allergies reviewed. Previous Medical History PAST MEDICAL HISTORY Diagnosis Date Advance directive discussed with patient 09/01/2021 Discussed 08/2021 Benign paroxysmal positional vertigo 01/14/2019 Carotid stenosis, asymptomatic, bilateral 07/21/2018 US 07/2018: less than 20% asim. Cholecystitis, unspecified Chronic right-sided low back pain Chronic right-sided thoracic back pain 07/17/2018 Colon Cancer(cecum) 09/29/[address] 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 Esparza Facial basal cell cancer 01/12/2019 Left nasal 12/[address] Esparza Family history of early CAD 01/14/2018 GERD without esophagitis HH (hiatus hernia) 09/29/2009 History of unsteady gait 03/22/2023 Hypomagnesemia 03/22/2023 Iron deficiency anemia, unspecified Living will on file 09/01/2021 DPA: Kervin () Living will on file at physician's office 09/01/2021 DPA: Kervin () Low blood magnesium 01/14/2019 Malignant neoplasm of colon (HCC) s/p right hemicolectomy (Dr. Alan Davila) Medicare annual wellness visit, subsequent 07/17/2018 Medicare Part B:11/08/2004 Last done: 07/17/2018 Mixed hyperlipidemia 01/03/2007 Nontoxic multinodular goiter 02/20/2023 Personal history of colon cancer 12/21/2013 s/p right hemicolectomy Primary hyperparathyroidism (HCC) 04/10/2023 Seeing Endo- Dr. Libertad STOVERBB 03/22/2023 Sciatica 06/28/2011 Seasonal allergic rhinitis Second hand smoke exposure 01/14/2018 Sensory hearing loss, bilateral 01/21/2018 Situational depression 09/20/2022 Squamous cell skin cancer 09/21/2021 Neck: removed 09/2021 Stage 3a chronic kidney disease (HCC) 01/14/2018 Thyroid nodule 09/30/2022 Tinnitus of left ear 01/21/[address] Carrero Previous Surgical History PAST SURGICAL HISTORY Procedure Laterality Date 2D ECHO (EXEP) 05/01/2017 65%, with mild diast dysf and 1+ AL. CARDIAC STRESS TEST 05/01/2017 negative CHOLECYSTECTOMY 1985 Cholecystectomy COLONOSCOPY 07/13/2016 Repeat 07/2021 COLONOSCOPY FLX DX W/COLLJ SPEC WHEN PFRMD 12/22/2010 repeat in -2013 COLONOSCOPY FLX DX W/COLLJ SPEC WHEN PFRMD 01/08/2014 per [facility] repeat in 3-5 years COLONOSCOPY W/BIOPSY SINGLE/MULTIPLE 09/29/2009 Cecal carcinoma EGD TRANSORAL BIOPSY SINGLE/MULTIPLE 09/29/2009 Small HH HEART CATHETERIZATION 07/30/2018 normal coronaries PAST SURGICAL HISTORY OF 10/2009 Rt hemicolectomy Family History FAMILY HISTORY Problem Relation Age of Onset Cancer Sister Metastatic cancer (lung and brain; ?primary); 2007 Patient Allergies ALLERGIES Allergen Reactions Penicillins Swelling, Myalgia Tolerated cephalexin 10/2022 Lisinopril Cough Vioxx [Rofecoxib] Unknown Zoloft [Sertraline] GI Upset Patient thought it made her feel sick, however she stated she was taking the new med 3 times a day and didn't start the other medication. (Zoloft and ativan were prescribed at same time). So we question if she was taking the correct medication or taking it as prescribed. Current Medications Current Outpatient Medications on File Prior to Visit Medication Sig losartan (COZAAR) 25 mg tablet Take 1 tablet by mouth once daily. carvedilol (COREG) 12.5 mg tablet Take 1 tablet by mouth two times a day. omeprazole (PRILOSEC) 40 mg capsule Take 1 capsule by mouth once daily. Take 30 minutes before breakfast. acetaminophen (TYLENOL ARTHRITIS PAIN ORAL) Take by mouth as directed. (Patient not taking: Reported on 06/15/2024) sodium chloride soluble tablet 1 g Take 1 tablet by mouth once daily. (Patient not taking: Reported on 04/29/2024) Magnesium Oxide 250 mg magnesium tab Take 1 in morning aspirin, enteric coated (ASPIRIN, ENTERIC COATED) 81 mg EC tablet Take 1 tablet by mouth once daily. meclizine (ANTIVERT) 12.5 mg tab Take 1 tablet by mouth two times a day. multivit-min/iron/FA/vit K/lut (CENTRUM SILVER WOMEN ORAL) Take by mouth. dojcdho-dnvfyxigx-uyhdfmr D3 500 mg-5 mcg (200 unit) per tablet Take 1 tablet by mouth two times a day with meals. acetaminophen (TYLENOL) 500 mg tablet Take 1 tablet by mouth every 4 hours as needed for pain. No current facility-administered medications on file prior to visit. Social History Social History Tobacco Use Smoking status: Never Smokeless tobacco: Never Vaping Use Vaping status: Never Used Substance Use Topics Alcohol use: No Drug use: No Review of Symptoms REVIEW OF SYSTEMS See HPI EXAM: BP 169/101 (BP Site: Left Arm, BP Position: Standing, BP Cuff Size: Regular Adult) Pulse 81 Resp 18 Wt 64.9 kg (143 lb) BMI 24.72 kg/m General Appearance: Well appearing, alert, in no acute distress, well-hydrated, well nourished.. Neck: Supple, no adenopathy; thyroid symmetric, normal size, no bruits. Lungs: Lungs clear to auscultation. No wheezing, rhonchi, rales.. Heart: RRR without murmur, gallop, or rubs. No ectopy. Abdomen: Normal abdominal exam, Abdomen soft, non-tender. Bowel sounds normal. No masses, organomegaly. Extremities: No deformities, skin discoloration, clubbing or cyanosis. Good capillary refill. Mild non-pitting edema on the right. Peripheral Pulses: hard to palpate pulses in bother lower legs near th feet. Musculo: There is mild pain in the calf areas Rt>Lt. Neurologic: Gait normal. Sensation to light touch and crainal nerves 2-12 grossly intact.. Health Maintenance List Anxiety Screening Never done DTaP,Tdap,Td Vaccine(1 - Tdap) Never done Shingrix Vaccine(1 of 2) Never done RSV Vaccine(1 - 1-dose 75+ series) Never done Advance Directive Discussion due on 06/10/2024 Covid-19 Vaccine() due on 08/25/2024 Bone Density Screening due on 03/18/2025 Diabetes Screening due on 08/30/2027 Influenza Vaccine Completed Pneumococcal Vaccine: 50+ Completed Data reviewed Latest Ref Rng 08/29/2024 Color Yellow Yellow Clarity Clear Clear Glucose, Urine Negative Negative Bilirubin, Urine Negative Negative Ketones, Urine Negative Negative Specific [place], Ur 1.005 - 1.030 1.007 Hemoglobin/Blood,Ur Negative Negative pH, Urine <8.5 6.5 Protein, Urine Negative Negative Urobilinogen 0.2-1.0 EU/dL 0.2 EU/dL Nitrites Negative Negative Leukest Negative Negative WBC, Urine 0-5 /HPF 0-5 /HPF RBC, Urine 0-2 /HPF 0-2 /HPF Bacteria Negative /HPF Negative Epithelial Cells /HPF None Seen Hyaline Cast 0 /LPF 0 /LPF Protein, Total 6.3 - 8.0 g/dL 7.1 Albumin 3.9 - 4.9 g/dL 4.1 Calcium 8.5 - 10.2 mg/dL 9.0 Bilirubin, Total 0.2 - 1.3 mg/dL 0.4 Alkaline Phosphatase 34 - 123 U/L 71 AST 13 - 35 U/L 25 ALT 7 - 38 U/L 11 Glucose 74 - 99 mg/dL 67 (L) BUN 7 - 21 mg/dL 11 Creatinine 0.58 - 0.96 mg/dL 1.01 (H) Sodium 136 - 144 mmol/L 136 Potassium 3.7 - 5.1 mmol/L 4.2 Chloride 98 - 107 mmol/L 102 CO2 22 - 30 mmol/L 23 Anion Gap 8 - 15 mmol/L 11 eGFR >=60 mL/min/1.73m 55 (L) Culture No growth (<1,000 CFU/ml) TSH 0.270 - 4.200 mIU/L 2.200 09/02/24 1432 09/02/24 1442 09/02/24 1443 09/02/24 1444 BP: 180/110 169/101 Pulse: 70 81 Resp: 18 Weight: 64.9 kg (143 lb) Orthostatic BP: 182/94 163/105 BP Position: Supine Sitting Standing Orthostatic Pulse: 69 73 A/P ASSESSMENT/PLAN: 1. Essential hypertension - ICD9: 401.9, ICD10: I10 (primary diagnosis) - Uncontrolled - Recommend home blood pressure monitoring, to bring results to next visit - Encouraged sodium restriction, DASH or Mediterranean diet - Recommend regular aerobic exercise - will stop the losartan and start Valsartan/HCTZ: 80/12.5 mg a day 2. Dizziness - ICD9: 780.4, ICD10: R42 Check - US CAROTID ARTERIES ASIM VAS LAB 3. Carotid stenosis, asymptomatic, bilateral - ICD9: 433.10, 433.30, ICD10: I65.23 Check - US CAROTID ARTERIES ASIM VAS LAB 4. Bilateral leg edema - ICD9: 782.3, ICD10: R60.0 Check - US LEG VEIN DVT ASIM VAS LAB 5. Bilateral calf pain - ICD9: 729.5, ICD10: M79.661, M79.662 Check - US LEG VEIN DVT ASIM VAS LAB - PVR LEG ASIM VAS LAB 6. Diminished pulses in lower extremity - ICD9: 785.9, ICD10: R09.89 Check - PVR LEG ASIM VAS LAB 7. RLS (restless legs syndrome) - ICD9: 333.94, ICD10: G25.81 - will trial Requip to se if symptoms decrease. 8. Chronic pain of both knees - ICD9: 719.46, 338.29, ICD10: M25.561, M25.562, G89.29 Check - XR KNEE GENERAL 4V AP BOTH/PA BOTH/LAT/MERC BILATERAL 9. Urgency of micturition - ICD9: 788.63, ICD10: R39.15 - CONSULT TO UROLOGY: Dr. Eisenberg 10. Dribbling of urine - ICD9: 788.35, ICD10: N39.43 - CONSULT TO UROLOGY 11. Frequent UTI - ICD9: 599.0, ICD10: N39.0 - CONSULT TO UROLOGY 12. Current mild episode of major depressive disorder without prior episode (HCC) - ICD9: 296.21, ICD10: F32.0 - will start Prozac 10 mg a day Requested Prescriptions Signed Prescriptions Disp Refills Valsartan-hydroCHLOROthiazide (DIOVAN HCT) 80-12.5 mg per tablet 90 tablet 1 Sig: Take 1 tablet by mouth once daily. rOPINIRole (REQUIP) 0.25 mg tablet 90 tablet 1 Sig: Take 1 tablet by mouth daily at bedtime. F/u around 09/25/2024 to re-eval I spent a total of 64 minutes on the date of the service which included preparing to see the patient, [id number] patient care, completing clinical documentation, performing a medically appropriate examination, counseling and educating the patient/family/caregiver and ordering medications, tests, or procedures. Chencho Urbina MD documented in this encounter [facility] 08-28-2024 Telephone encounter Note Patient returned call and went over notes below from Dr Urbina with understanding. [facility] 08-28-2024 Miscellaneous Notes Patient returned call and went over notes below from Dr Urbina with understanding. Called and left a voicemail for the Patient to call back and ask for a nurse to receive the providers message. Willa Yusuf, MILLICENT Let patient know I placed orders for urine and blood work. Pt had called in about 3 major issues she needed to go over with the provider. I let her know he may not be able to cover all of them, but made a 40 minute appointment for her with Dr Urbina. Pt called in and reports she just saw Jean Jara on 08/17/24 for a UTI and finished the antibiotics on Saturday. She states she is still having urgency and only dribbling. Pt reports at night she is able to urinate fine. I asked Pt if she was pushing fluids, and she said she drinks a cup of hot tea in the morning and sips on water through out the day and drinks about 2 18 oz cups, then she drinks a large glass of iced tea at night. Pt reports the numbness in her leg is mainly in her right leg from her sciatica. Then Pt states she fell in February and broke her pelvis and things have been worse since then. She states some days when she puts her shoes on they will be tighter, especially on her right foot. She said last week the swelling was so bad her pant legs were tight. Pt reports she does eat a lot of processed foods since she lives alone. I told her they have a lot of sodium in them, and she would do better with fresh fruits and vegetables, and lean meats like chicken/turkey/ and seafood. Pt reports her depression has gotten worse. She states he dies 3 years ago and she has an appointment with dermatology for them to remove sink cancer. She states she was using chemo cream and she didn't wash it off her hands well enough and lost her hair and it's finally coming back. Pt was asking if provider would like for her to get labs done. Please call and advise. documented in this encounter [facility] 08-28-2024 Telephone encounter Note Called and left a voicemail for the Patient to call back and ask for a nurse to receive the providers message. Willa Yusuf RN [facility] 08-28-2024 Telephone encounter Note Let patient know I placed orders for urine and blood work. [facility] 08-28-2024 Telephone encounter Note Pt had called in about 3 major issues she needed to go over with the provider. I let her know he may not be able to cover all of them, but made a 40 minute appointment for her with Dr Urbina. Pt called in and reports she just saw Jean Jara on 08/17/24 for a UTI and finished the antibiotics on Saturday. She states she is still having urgency and only dribbling. Pt reports at night she is able to urinate fine. I asked Pt if she was pushing fluids, and she said she drinks a cup of hot tea in the morning and sips on water through out the day and drinks about 2 18 oz cups, then she drinks a large glass of iced tea at night. Pt reports the numbness in her leg is mainly in her right leg from her sciatica. Then Pt states she fell in February and broke her pelvis and things have been worse since then. She states some days when she puts her shoes on they will be tighter, especially on her right foot. She said last week the swelling was so bad her pant legs were tight. Pt reports she does eat a lot of processed foods since she lives alone. I told her they have a lot of sodium in them, and she would do better with fresh fruits and vegetables, and lean meats like chicken/turkey/ and seafood. Pt reports her depression has gotten worse. She states he dies 3 years ago and she has an appointment with dermatology for them to remove sink cancer. She states she was using chemo cream and she didn't wash it off her hands well enough and lost her hair and it's finally coming back. Pt was asking if provider would like for her to get labs done. Please call and advise. [facility] 08-19-2024 Telephone encounter Note Patient notified of results, verbalizes understanding of instructions. Pt stated she is doing much better. Betty Decker LPN [facility] 08-19-2024 Miscellaneous Notes Patient notified of results, verbalizes understanding of instructions. Pt stated she is doing much better. Betty Decker LPN Please let the patient know that her urine culture grew some bacteria but not any certain type of bacteria. Could be a result of the collection process. Can you please ask her how her symptoms are? Are they improving? Worsening or no different? Please send response back to me. Jean Jara APRN.CNP documented in this encounter [facility] 08-19-2024 Telephone encounter Note Please let the patient know that her urine culture grew some bacteria but not any certain type of bacteria. Could be a result of the collection process. Can you please ask her how her symptoms are? Are they improving? Worsening or no different? Please send response back to me. Jean Jara APRN.CNP [facility] 08-17-2024 Instructions Jean Jara APRN.CNP - 08/17/2024 1:29 PM EDT Hold Centrum, Magnesium and Calcium/vitamin D tablets for 1 week while on Ciprofloxacin Jean Jara APRN.CNP documented in this encounter [facility] 08-17-2024 History of Present illness Narrative Chief Complaint Patient presents with: UTI: Urinary frequency, GAO, dizziness x 1 week HPI Leonor Pal is a 83 year old female who presents here today for Above Complaints. Katherin Pal is an 83-year-old female, with a history of a small brain aneurysm, presenting with urinary symptoms, headaches, and leg stiffness. She is accompanied by her daughter, who is providing additional history. Katherin reports urinary symptoms characterized by a sensation of incomplete bladder emptying after voiding during the day, with only a few drops of urine being passed. However, she experiences nocturia, waking up at least twice per night to void with a normal urine stream. She denies hematuria or dysuria. She has a known allergy to penicillin. She also reports persistent headaches and neck pain for the past couple of weeks, with varying intensity. The pain is exacerbated by certain head movements, such as tilting the head up or down. She denies visual changes, nausea, or emesis, but notes intermittent dizziness, particularly when sitting up and reading or using her tablet. She has a scheduled appointment with an deputy coroner investigator on . She has a history of a small brain aneurysm, which is being monitored with annual scans. Stating that she has a history of vertigo, her occasional dizziness is consistent with those symptoms. Using meclizine twice daily. Additionally, she reports bilateral leg stiffness, describing her legs as feeling like a piece of wood when lying down, with the right leg being more affected than the left. She attributes this to a fall in February and has a history of sciatica on the right side. She notes numbness and pain in the right calf, which she describes as feeling like putting your brakes too fast. She denies significant swelling in the calves. Past medical history, appointments, medications, allergies reviewed. EXAM: BP 140/90 (BP Position: Sitting) Pulse 99 Resp 16 Wt 65.3 kg (144 lb) SpO2 97% BMI 24.89 kg/m General Appearance: Well appearing, alert, in no acute distress, well-hydrated, well nourished.. Head: Normocephalic, no masses, lesions, tenderness or abnormalities. Eyes: Anicteric sclera. Pupils are equally round and reactive to light. Extraocular movements are intact. . Lungs: Lungs clear to auscultation. No wheezing, rhonchi, rales.. Heart: RRR without murmur, gallop, or rubs. No ectopy. Musculoskeletal: Diffuse tenderness of the bilateral upper trapezius muscles, tenderness in the posterior scalene, increased pain with flexion of the neck, rotation of the neck from left to right.. Neurologic: Gait normal. Reflexes normal and symmetric. Sensation grossly intact. Romberg negative. Ext: Measured both calves, both measuring 15 inches in circumference, no redness, warmth of either calf. Labs: (Today) Urinalysis: - Glucose: none - Ketones: present - Bilirubin: present - Protein: present - Leukocyte esterase: trace - Nitrites: negative - Blood: none 1. UTI symptoms (R39.9) Urinalysis shows no glucose, trace ketones, bilirubin, protein, and leukocytes; no nitrates or hematuria. Symptoms include frequent urination with minimal output during the day and normal stream at night. Previous hematuria noted in past urinalysis. - Sent urine sample for culture. - Initiated antibiotic therapy. 2. Musculoskeletal disorder involving upper trapezius muscle (M62.9) Neck pain with limited range of motion; differential includes muscle tension or tightness. - Performed neurological examination. - Likely secondary to extended poor posture with reading, using tablet. Encouraged patient to improve posture, use of moist heat. Likely contributing to #3. Discussed use of muscle relaxers but patient declined as she is fearful of falls. 3. Tension headache (G44.209) Headaches with associated neck pain, no visual changes, nausea, or vomiting. Patient has a known small brain aneurysm monitored annually. Recent episodes of dizziness while reading or using a tablet. -Likely secondary to #2. - Recommended updating neurology team about current symptoms. - Patient has an upcoming ophthalmology appointment on . Jean Jaar APRN.SITE ADMINISTRATOR Continue with scheduled follow-up with PCP in 3 to 4 weeks. This note was partly generated using [employer] voice recognition dictation and may contain some misspelled or inaccurate words missed on review. The patient consented to the use of [employer] software for draft documentation of the visit consistent with [facility] s Notice of Privacy Practices. documented in this encounter [facility] 08-17-2024 Note [facility] 07-30-2024 Telephone encounter Note Pt notified of same. Venita Green LPN [facility] 07-30-2024 Miscellaneous Notes Pt notified of same. Venita Green LPN Repeat urine is normal No more RBC noted. documented in this encounter [facility] 07-30-2024 Telephone encounter Note Repeat urine is normal No more RBC noted. [facility] 07-07-2024 Telephone encounter Note Pt notified of Cassandra's instructions. Pt verbalizes understanding. Venita Green LPN [facility] 07-07-2024 Miscellaneous Notes Pt notified of Cassandra's instructions. Pt verbalizes understanding. Venita Green LPN BP looks okay. Will keep things as is for now Cassandra Arshad PA-C Spoke with patient; 06/16 11am 127/83 80 001/08 9 pm 127/78 79 06/18 11am 138/94 75 06/19 5 pm 142/94 77 06/20 11 am 134/93 77 06/21 4 pm 142/99 82 06/22 11am 135/92 79 06/23 745pm 136/86 75 06/24 330pm 142/93 83 06/25 440pm 142/91 75 06/26 12pm 142/93 75 06/27 7pm 126/79 70 06/28 6pm 137/96 89 06/29 8am 137/89 94 06/30 3pm 143/99 71 07/01 5pm 135/84 81 07/02 12pm 136/85 74 07/03 3 pm 137/87 76 07/04 6 pm 124/75 76 07/05 3pm 134/86 81 Lana Schwartz MA Tried to reach pt, line rings busy. Ayaka Arreola MA Please ask patient for home bp readings. documented in this encounter [facility] 07-07-2024 Telephone encounter Note BP looks okay. Will keep things as is for now Cassandra Arshad PA-C [facility] 07-06-2024 Telephone encounter Note Spoke with patient; 06/16 11am 127/83 80 08 9 pm 127/78 79 06/18 11am 138/94 75 06/19 5 pm 142/94 77 06/20 11 am 134/93 77 06/21 4 pm 142/99 82 06/22 11am 135/92 79 06/23 745pm 136/86 75 06/24 330pm 142/93 83 06/25 440pm 142/91 75 06/26 12pm 142/93 75 06/27 7pm 126/79 70 06/28 6pm 137/96 89 06/29 8am 137/89 94 06/30 3pm 143/99 71 07/01 5pm 135/84 81 07/02 12pm 136/85 74 07/03 3 pm 137/87 76 07/04 6 pm 124/75 76 07/05 3pm 134/86 81 Lana Schwartz MA [facility] 07-06-2024 Telephone encounter Note Tried to reach pt, line rings busy. Ayaka Arreola MA [facility] 07-06-2024 Telephone encounter Note Please ask patient for home bp readings. [facility] 06-26-2024 Telephone encounter Note Patient notified of results and provider's instructions. Patient verbalizes understanding. Venita Green LPN [facility] 06-26-2024 Miscellaneous Notes Patient notified of results and provider's instructions. Patient verbalizes understanding. Venita Green LPN Let patient know that her bladder and kidney US was okay. Lets repeat urinalysis in 1 month. Please hydrate well prior to giving sample. Cassandra Arshad PA-C documented in this encounter [facility] 06-26-2024 Telephone encounter Note Let patient know that her bladder and kidney US was okay. Lets repeat urinalysis in 1 month. Please hydrate well prior to giving sample. Cassandra Arshad PA-C [facility] 06-24-2024 History of Present illness Narrative Radiology Service Progress Note PATIENT NAME: Leonor Pal DATE OF SERVICE: June 24, 2024 TIME: 3:45 PM PATIENT IDENTITY VERIFICATION COMPLETED USING TWO (2) IDENTIFIERS: Name and Date of confirmed by patient verbally. FALL SCREENING: Has the patient had 2 falls in the last year or 1 fall with injury or currently using an Ambulatory Assistive Device (Walker, Cane, Wheelchair, Crutches, etc.)? No PATIENT GENDER DATA: Assigned female at . status: : No status: NO. PATIENT RELEVANT IMPLANT DATA REVIEWED: Not Applicable PATIENT PRESENTS WITH AN IMPLANTABLE OR ATTACHED ENGINEERING DESIGN SUPERVISOR: No RADIOLOGY DEPARTMENT: Ultrasound PERIPHERAL IV DATA: Not applicable SIGNED BY: Pauly Barnett RDMS RVT June 24, 2024 3:45 PM documented in this encounter [facility] 06-24-2024 Note [facility] 06-18-2024 Telephone encounter Note Patient notified of results and provider's instructions. Patient verbalizes understanding. Pt was assisted in transfer to set up US. Venita Green LPN [facility] 06-18-2024 Miscellaneous Notes Patient notified of results and provider's instructions. Patient verbalizes understanding. Pt was assisted in transfer to set up US. Venita Green LPN Let patient know that her urine shows evidence of dehydration. She also has small amount of blood and calcium oxalate crystal which could be from possible stones. I would like to get a bladder/kidney US to further evaluate. documented in this encounter [facility] 06-18-2024 Telephone encounter Note Let patient know that her urine shows evidence of dehydration. She also has small amount of blood and calcium oxalate crystal which could be from possible stones. I would like to get a bladder/kidney US to further evaluate. [facility] 06-15-2024 Instructions Cassandra Arshad PA-C - 06/15/2024 1:34 PM EST Please update us with home bp readings in about 4 weeks (we will call you). documented in this encounter [facility] 06-15-2024 Note [facility] 06-15-2024 History of Present illness Narrative Chief Complaint Patient presents with: Recheck: Blood pressure HPI Leonor Pal is a 83 year old female who presents here today for Above Complaints.. Patient has been monitoring home readings. Ranges from 148/102- 117/77. Most readings are 130s-140s/80s. Patient was previously on 20mg of lisinopril but started to have low BP so it was d/c in feb. Patient also reports urinary symptoms on and off. Past medical history, appointments, medications, allergies reviewed. Previous Medical History PAST MEDICAL HISTORY Diagnosis Date Advance directive discussed with patient 09/01/2021 Discussed 08/2021 Benign paroxysmal positional vertigo 01/14/2019 Carotid stenosis, asymptomatic, bilateral 07/21/2018 US 07/2018: less than 20% asim. Cholecystitis, unspecified Chronic right-sided low back pain Chronic right-sided thoracic back pain 07/17/2018 Colon Cancer(cecum) 09/29/[address] 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 Esparza Facial basal cell cancer 01/12/2019 Left nasal 12/[address] Esparza Family history of early CAD 01/14/2018 GERD without esophagitis HH (hiatus hernia) 09/29/2009 History of unsteady gait 03/22/2023 Hypomagnesemia 03/22/2023 Iron deficiency anemia, unspecified Living will on file 09/01/2021 DPA: Kervin () Living will on file at physician's office 09/01/2021 DPA: Kervin () Low blood magnesium 01/14/2019 Malignant neoplasm of colon (HCC) s/p right hemicolectomy (Dr. Alan Davila) Medicare annual wellness visit, subsequent 07/17/2018 Medicare Part B:11/08/2004 Last done: 07/17/2018 Mixed hyperlipidemia 01/03/2007 Nontoxic multinodular goiter 02/20/2023 Personal history of colon cancer 12/21/2013 s/p right hemicolectomy Primary hyperparathyroidism (HCC) 04/10/2023 Seeing Endo- Dr. Libertad Mckeon RBBB 03/22/2023 Sciatica 06/28/2011 Seasonal allergic rhinitis Second hand smoke exposure 01/14/2018 Sensory hearing loss, bilateral 01/21/2018 Situational depression 09/20/2022 Squamous cell skin cancer 09/21/2021 Neck: removed 09/2021 Stage 3a chronic kidney disease (HCC) 01/14/2018 Thyroid nodule 09/30/2022 Tinnitus of left ear 01/21/[address] Carrero Previous Surgical History PAST SURGICAL HISTORY Procedure Laterality Date 2D ECHO (EXEP) 05/01/2017 65%, with mild diast dysf and 1+ AL. CARDIAC STRESS TEST 05/01/2017 negative CHOLECYSTECTOMY 1985 Cholecystectomy COLONOSCOPY 07/13/2016 Repeat 07/2021 COLONOSCOPY FLX DX W/COLLJ SPEC WHEN PFRMD 12/22/2010 repeat in -2013 COLONOSCOPY FLX DX W/COLLJ SPEC WHEN PFRMD 01/08/2014 per [facility] repeat in 3-5 years COLONOSCOPY W/BIOPSY SINGLE/MULTIPLE 09/29/2009 Cecal carcinoma EGD TRANSORAL BIOPSY SINGLE/MULTIPLE 09/29/2009 Small HH HEART CATHETERIZATION 07/30/2018 normal coronaries PAST SURGICAL HISTORY OF 10/2009 Rt hemicolectomy Family History FAMILY HISTORY Problem Relation Age of Onset Cancer Sister Metastatic cancer (lung and brain; ?primary); 2007 Patient Allergies ALLERGIES Allergen Reactions Penicillins Swelling, Myalgia Tolerated cephalexin 10/2022 Lisinopril Cough Vioxx [Rofecoxib] Unknown Zoloft [Sertraline] GI Upset Patient thought it made her feel sick, however she stated she was taking the new med 3 times a day and didn't start the other medication. (Zoloft and ativan were prescribed at same time). So we question if she was taking the correct medication or taking it as prescribed. Current Medications Current Outpatient Medications on File Prior to Visit Medication Sig carvedilol (COREG) 12.5 mg tablet Take 1 tablet by mouth two times a day. omeprazole (PRILOSEC) 40 mg capsule Take 1 capsule by mouth once daily. Take 30 minutes before breakfast. Magnesium Oxide 250 mg magnesium tab Take 1 in morning aspirin, enteric coated (ASPIRIN, ENTERIC COATED) 81 mg EC tablet Take 1 tablet by mouth once daily. meclizine (ANTIVERT) 12.5 mg tab Take 1 tablet by mouth two times a day. multivit-min/iron/FA/vit K/lut (CENTRUM SILVER WOMEN ORAL) Take by mouth. ftqcfmi-rzrwgmbmw-mhqcsdy D3 500 mg-5 mcg (200 unit) per tablet Take 1 tablet by mouth two times a day with meals. acetaminophen (TYLENOL) 500 mg tablet Take 1 tablet by mouth every 4 hours as needed for pain. acetaminophen (TYLENOL ARTHRITIS PAIN ORAL) Take by mouth as directed. (Patient not taking: Reported on 06/15/2024) sodium chloride soluble tablet 1 g Take 1 tablet by mouth once daily. (Patient not taking: Reported on 04/29/2024) No current facility-administered medications on file prior to visit. Social History Social History Tobacco Use Smoking status: Never Smokeless tobacco: Never Vaping Use Vaping status: Never Used Substance Use Topics Alcohol use: No Drug use: No Review of Symptoms REVIEW OF SYSTEMS GENERAL: No weight loss, malaise or fevers EXAM: BP 154/92 (BP Site: Right Arm, BP Position: Sitting, BP Cuff Size: Regular Adult) Pulse 76 Temp 37.2 C (98.9 F) Resp 16 Wt 64.4 kg (142 lb) SpO2 97% BMI 24.54 kg/m General Appearance: Well appearing, alert, in no acute distress, well-hydrated, well nourished.. Health Maintenance List Anxiety Screening Never done DTaP,Tdap,Td Vaccine(1 - Tdap) Never done Shingrix Vaccine(1 of 2) Never done RSV Vaccine(1 - 1-dose 75+ series) Never done Advance Directive Discussion due on 06/10/2024 Bone Density Screening due on 03/18/2025 Diabetes Screening due on 03/25/2027 Influenza Vaccine Completed Covid-19 Vaccine Completed Pneumococcal Vaccine: 50+ Completed HPV Vaccine Aged Out Data reviewed ASSESSMENT/PLAN: 1. Essential hypertension - ICD9: 401.9, ICD10: I10 (primary diagnosis) Will start losartan Continue home monitoring. Patient to update us via phone in 1 month with readings. 2. Urinary frequency - ICD9: 788.41, ICD10: R35.0 recurrent - Patient education for prevention given Check UA kiran with reflex to culture. - URINALYSIS WITH MICROSCOPIC, REFLEX CULTURE Cassandra Arshad PA-C documented in this encounter [facility] 06-08-2024 Note [facility] 06-08-2024 History of Present illness Narrative Chief Complaint No chief complaint on file. HPI Leonor Pal is a 83 year old female who presents here today for Above Complaints.. Patient presents for fatigue, headaches, sinus congestion, right ear pain, and cough. Reports fever of 100.1 yesterday. Also reports urinary frequency but not urinating that much. Denies n/v/d, SOB. Past medical history, appointments, medications, allergies reviewed. Previous Medical History PAST MEDICAL HISTORY Diagnosis Date Advance directive discussed with patient 09/01/2021 Discussed 08/2021 Benign paroxysmal positional vertigo 01/14/2019 Carotid stenosis, asymptomatic, bilateral 07/21/2018 07/2018: less than 20% asim. Cholecystitis, unspecified Chronic right-sided low back pain Chronic right-sided thoracic back pain 07/17/2018 Colon Cancer(cecum) 09/29/[address] 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 Esparza Facial basal cell cancer 01/12/2019 Left nasal 12/[address] Esparza Family history of early CAD 01/14/2018 GERD without esophagitis HH (hiatus hernia) 09/29/2009 History of unsteady gait 03/22/2023 Hypomagnesemia 03/22/2023 Iron deficiency anemia, unspecified Living will on file 09/01/2021 DPA: Kervin () Living will on file at physician's office 09/01/2021 DPA: Kervin () Low blood magnesium 01/14/2019 Malignant neoplasm of colon (HCC) s/p right hemicolectomy (Dr. Alan Davila) Medicare annual wellness visit, subsequent 07/17/2018 Medicare Part B:11/08/2004 Last done: 07/17/2018 Mixed hyperlipidemia 01/03/2007 Nontoxic multinodular goiter 02/20/2023 Personal history of colon cancer 12/21/2013 s/p right hemicolectomy Primary hyperparathyroidism (HCC) 04/10/2023 Seeing Endo- Dr. Libertad Mckeon RBBB 03/22/2023 Sciatica 06/28/2011 Seasonal allergic rhinitis Second hand smoke exposure 01/14/2018 Sensory hearing loss, bilateral 01/21/2018 Situational depression 09/20/2022 Squamous cell skin cancer 09/21/2021 Neck: removed 09/2021 Stage 3a chronic kidney disease (HCC) 01/14/2018 Thyroid nodule 09/30/2022 Tinnitus of left ear 01/21/[address] Carrero Previous Surgical History PAST SURGICAL HISTORY Procedure Laterality Date 2D ECHO (EXEP) 05/01/2017 64%, with mild diast dysf and 1+ AL. CARDIAC STRESS TEST 05/01/2017 negative CHOLECYSTECTOMY 1985 Cholecystectomy COLONOSCOPY 07/13/2016 Repeat 07/2021 COLONOSCOPY FLX DX W/COLLJ SPEC WHEN PFRMD 12/22/2010 repeat in -2013 COLONOSCOPY FLX DX W/COLLJ SPEC WHEN PFRMD 01/08/2014 per [facility] repeat in 3-5 years COLONOSCOPY W/BIOPSY SINGLE/MULTIPLE 09/29/2009 Cecal carcinoma EGD TRANSORAL BIOPSY SINGLE/MULTIPLE 09/29/2009 Small HH HEART CATHETERIZATION 07/30/2018 normal coronaries PAST SURGICAL HISTORY OF 10/2009 Rt hemicolectomy Family History FAMILY HISTORY Problem Relation Age of Onset Cancer Sister Metastatic cancer (lung and brain; ?primary); 2007 Patient Allergies ALLERGIES Allergen Reactions Penicillins Swelling, Myalgia Tolerated cephalexin 10/2022 Lisinopril Cough Vioxx [Rofecoxib] Unknown Zoloft [Sertraline] GI Upset Patient thought it made her feel sick, however she stated she was taking the new med 3 times a day and didn't start the other medication. (Zoloft and ativan were prescribed at same time). So we question if she was taking the correct medication or taking it as prescribed. Current Medications Current Outpatient Medications on File Prior to Visit Medication Sig carvedilol (COREG) 12.5 mg tablet Take 1 tablet by mouth two times a day. omeprazole (PRILOSEC) 40 mg capsule Take 1 capsule by mouth once daily. Take 30 minutes before breakfast. acetaminophen (TYLENOL ARTHRITIS PAIN ORAL) Take by mouth as directed. sodium chloride soluble tablet 1 g Take 1 tablet by mouth once daily. (Patient not taking: Reported on 04/29/2024) Magnesium Oxide 250 mg magnesium tab Take 1 in morning aspirin, enteric coated (ASPIRIN, ENTERIC COATED) 81 mg EC tablet Take 1 tablet by mouth once daily. meclizine (ANTIVERT) 12.5 mg tab Take 1 tablet by mouth two times a day. multivit-min/iron/FA/vit K/lut (CENTRUM SILVER WOMEN ORAL) Take by mouth. wucnagl-mutguytaa-yzeubrg D3 500 mg-5 mcg (200 unit) per tablet Take 1 tablet by mouth two times a day with meals. acetaminophen (TYLENOL) 500 mg tablet Take 1 tablet by mouth every 4 hours as needed for pain. No current facility-administered medications on file prior to visit. Social History Social History Tobacco Use Smoking status: Never Smokeless tobacco: Never Vaping Use Vaping status: Never Used Substance Use Topics Alcohol use: No Drug use: No Review of Symptoms REVIEW OF SYSTEMS SEE HPI EXAM: BP 152/89 Pulse 78 Temp 37.3 C (99.1 F) Wt 63 kg (139 lb) SpO2 98% BMI 24.02 kg/m General Appearance: Well appearing, alert, in no acute distress, well-hydrated, well nourished.. Ears: External ears normal, canals clear. Nose/Sinuses: Positive findings: mucosa erythematous and swollen, purulent rhinorrhea. Oropharynx: Lips, mucosa, and tongue normal, teeth and gums normal, oropharynx normal. Neck: Supple, no adenopathy; thyroid symmetric, normal size, no bruits. Lungs: Lungs clear to auscultation. No wheezing, rhonchi, rales.. Heart: RRR without murmur, gallop, or rubs. No ectopy. Health Maintenance List Anxiety Screening Never done DTaP,Tdap,Td Vaccine(1 - Tdap) Never done Shingrix Vaccine(1 of 2) Never done RSV Vaccine(1 - 1-dose 75+ series) Never done Bone Density Screening due on 03/18/2025 Diabetes Screening due on 03/25/2027 Influenza Vaccine Completed Advance Directive Discussion Completed Covid-19 Vaccine Completed Pneumococcal Vaccine: 50+ Completed HPV Vaccine Aged Out Data Reviewed Latest Ref Rng 06/08/2024 GLUCOSE UA (POCT) Negative mg/dL Negative BILIRUBIN UA (POCT) Negative Negative KETONE UA (POCT) Negative mg/dL Trace SPECIFIC GRAVITY UA (POCT) 1.005 - 1.030 1.025 HEMOGLOBIN/BLOOD UA (POCT) Negative Negative PH UA (POCT) 4.5 - 8.0 5.5 PROTEIN UA (POCT) Negative mg/dL 30 ! UROBILINOGEN UA (POCT) Normal E.U./dL 0.2 NITRITE UA (POCT) Negative Negative LEUKOCYTES UA (POCT) Negative Negative COLOR UA (POCT) Yellow CLARITY UA (POCT) Clear ASSESSMENT/PLAN: 1. UTI symptoms - ICD9: 788.99, ICD10: R39.9 (primary diagnosis) -Negative for leukocytes, nitrites, blood. - UA DIP, URINE (POC) 2. Bacterial sinusitis - ICD9: 473.9, 041.9, ICD10: J32.9, B96.89 - Will begin treatment with as per antibiotic as written, see orders - The patient should also be given OTC cough and cold meds as needed, warm salt water gargles, throat lozenges and/or OTC throat spray as needed, and nasal saline gtts and suction prn for the first 5-7 days of treatment. - Supportive care with plenty of fluids, rest, and analgesia prn. - Follow up in 3-5 days if symptoms persist or worsen. - CEFDINIR 300 MG CAPSULE Elisa Doherty APRN.SITE ADMINISTRATOR documented in this encounter [facility] 05-12-2024 Telephone encounter Note Patient scheduled. [facility] 05-12-2024 Miscellaneous Notes Patient scheduled. See if patient is willing to schedule a BP Check in early June since her readings are still borderline high. Cassandra Arshad PA-C Patient states she hasn't been writing them down. Just took BP this morning around 7:30am, states it was around 142/92. She did state that most of the pressures she has been taking have been around this number. Advised her to keep track of BP's from here on out, patient verbalized understanding. Please review and advise. Please ask patient/patient's daughter for some home BP readings since she last saw me Thanks. Cassandra Arshad PA-C documented in this encounter [facility] 05-12-2024 Telephone encounter Note See if patient is willing to schedule a BP Check in early June since her readings are still borderline high. Cassandra Arshad PA-C [facility] 05-12-2024 Telephone encounter Note Patient states she hasn't been writing them down. Just took BP this morning around 7:30am, states it was around 142/92. She did state that most of the pressures she has been taking have been around this number. Advised her to keep track of BP's from here on out, patient verbalized understanding. Please review and advise. [facility] 05-12-2024 Telephone encounter Note Please ask patient/patient's daughter for some home BP readings since she last saw me Thanks. Cassandra Arshad PA-C [facility] 05-11-2024 Miscellaneous Notes Patient needs to be scheduled for bone density for March 2025 due to insurance, please send updated bone density order. Thank you! documented in this encounter [facility] 05-11-2024 Telephone encounter Note Patient needs to be scheduled for bone density for March 2025 due to insurance, please send updated bone density order. Thank you! [facility] 05-04-2024 Note [facility] 05-04-2024 History of Present illness Narrative Chief Complaint Patient presents with: Back Pain Leg Pain HPI Leonor Pal is a 83 year old female who presents here today for Above Complaints.. Patient reports back pain for the past couple months since she fell. Had some improvement but then symptoms return. She has seen ortho and Physical Therapy. Pain is across back and right sided. It does radiate down her right leg and causes n/t in that leg as well. Past medical history, appointments, medications, allergies reviewed. Previous Medical History PAST MEDICAL HISTORY Diagnosis Date Advance directive discussed with patient 09/01/2021 Discussed 08/2021 Benign paroxysmal positional vertigo 01/14/2019 Carotid stenosis, asymptomatic, bilateral 07/21/2018 US 07/2018: less than 20% asim. Cholecystitis, unspecified Chronic right-sided low back pain Chronic right-sided thoracic back pain 07/17/2018 Colon Cancer(cecum) 09/29/[address] 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 Esparza Facial basal cell cancer 01/12/2019 Left nasal 12/[address] Esparza Family history of early CAD 01/14/2018 GERD without esophagitis HH (hiatus hernia) 09/29/2009 History of unsteady gait 03/22/2023 Hypomagnesemia 03/22/2023 Iron deficiency anemia, unspecified Living will on file 09/01/2021 DPA: Kervin () Living will on file at physician's office 09/01/2021 DPA: Kervin () Low blood magnesium 01/14/2019 Malignant neoplasm of colon (HCC) s/p right hemicolectomy (Dr. Alan Davila) Medicare annual wellness visit, subsequent 07/17/2018 Medicare Part B:11/08/2004 Last done: 07/17/2018 Mixed hyperlipidemia 01/03/2007 Nontoxic multinodular goiter 02/20/2023 Personal history of colon cancer 12/21/2013 s/p right hemicolectomy Primary hyperparathyroidism (HCC) 04/10/2023 Seeing Endo- Dr. Libertad Mckeon RBBB 03/22/2023 Sciatica 06/28/2011 Seasonal allergic rhinitis Second hand smoke exposure 01/14/2018 Sensory hearing loss, bilateral 01/21/2018 Situational depression 09/20/2022 Squamous cell skin cancer 09/21/2021 Neck: removed 09/2021 Stage 3a chronic kidney disease (HCC) 01/14/2018 Thyroid nodule 09/30/2022 Tinnitus of left ear 01/21/[address] Carrero Previous Surgical History PAST SURGICAL HISTORY Procedure Laterality Date 2D ECHO (EXEP) 05/01/2017 64%, with mild diast dysf and 1+ AL. CARDIAC STRESS TEST 05/01/2017 negative CHOLECYSTECTOMY 1985 Cholecystectomy COLONOSCOPY 07/13/2016 Repeat 07/2021 COLONOSCOPY FLX DX W/COLLJ SPEC WHEN PFRMD 12/22/2010 repeat in -2013 COLONOSCOPY FLX DX W/COLLJ SPEC WHEN PFRMD 01/08/2014 per repeat in 3-5 years COLONOSCOPY W/BIOPSY SINGLE/MULTIPLE 09/29/2009 Cecal carcinoma EGD TRANSORAL BIOPSY SINGLE/MULTIPLE 09/29/2009 Small HH HEART CATHETERIZATION 07/30/2018 normal coronaries PAST SURGICAL HISTORY OF 10/2009 Rt hemicolectomy Family History FAMILY HISTORY Problem Relation Age of Onset Cancer Sister Metastatic cancer (lung and brain; ?primary); 2007 Patient Allergies ALLERGIES Allergen Reactions Penicillins Swelling, Myalgia Tolerated cephalexin 10/2022 Lisinopril Cough Vioxx [Rofecoxib] Unknown Zoloft [Sertraline] GI Upset Patient thought it made her feel sick, however she stated she was taking the new med 3 times a day and didn't start the other medication. (Zoloft and ativan were prescribed at same time). So we question if she was taking the correct medication or taking it as prescribed. Current Medications Current Outpatient Medications on File Prior to Visit Medication Sig omeprazole (PRILOSEC) 40 mg capsule Take 1 capsule by mouth once daily. Take 30 minutes before breakfast. acetaminophen (TYLENOL ARTHRITIS PAIN ORAL) Take by mouth as directed. carvedilol (COREG) 12.5 mg tablet Take 1 tablet by mouth two times a day. Magnesium Oxide 250 mg magnesium tab Take 1 in morning aspirin, enteric coated (ASPIRIN, ENTERIC COATED) 81 mg EC tablet Take 1 tablet by mouth once daily. meclizine (ANTIVERT) 12.5 mg tab Take 1 tablet by mouth two times a day. multivit-min/iron/FA/vit K/lut (CENTRUM SILVER WOMEN ORAL) Take by mouth. hbiybia-sbzyhjkyq-bqutlbz D3 500 mg-5 mcg (200 unit) per tablet Take 1 tablet by mouth two times a day with meals. acetaminophen (TYLENOL) 500 mg tablet Take 1 tablet by mouth every 4 hours as needed for pain. nitrofurantoin monohydrate and macrocrystal (MACROBID) 100 mg capsule Take 1 capsule by mouth two times a day for 5 days. (Patient not taking: Reported on 05/04/2024) sodium chloride soluble tablet 1 g Take 1 tablet by mouth once daily. (Patient not taking: Reported on 04/29/2024) No current facility-administered medications on file prior to visit. Social History Social History Tobacco Use Smoking status: Never Smokeless tobacco: Never Vaping Use Vaping status: Never Used Substance Use Topics Alcohol use: No Drug use: No Review of Symptoms REVIEW OF SYSTEMS See hpi EXAM: BP 158/92 (BP Site: Left Arm, BP Position: Sitting, BP Cuff Size: Regular Adult) Pulse 76 Temp 36.7 C (98.1 F) (Tympanic) Resp 16 Wt 63.5 kg (140 lb) BMI 24.20 kg/m BP 161/89 Pulse 71 Temp 36.7 C (98.1 F) (Tympanic) Resp 16 Wt 63.5 kg (140 lb) BMI 24.20 kg/m General Appearance: Well appearing, alert, in no acute distress, well-hydrated, well nourished.. Musculoskeletal: no pain to palp of spine. +tenderness on right paraspinous muscles and of R SI joint. SLR positive for pain only. NVI. Reflexes symmetrical. Peripheral Pulses: Normal. Health Maintenance List Anxiety Screening Never done DTaP,Tdap,Td Vaccine(1 - Tdap) Never done Shingrix Vaccine(1 of 2) Never done RSV Vaccine(1 - 1-dose 75+ series) Never done Bone Density Screening due on 03/18/2025 Diabetes Screening due on 03/25/2027 Influenza Vaccine Completed Advance Directive Discussion Completed Covid-19 Vaccine Completed Pneumococcal Vaccine: 65+ Completed HPV Vaccine Aged Out Data reviewed ASSESSMENT/PLAN: 1. Sciatica of right side - ICD9: 724.3, ICD10: M54.31 Possible SI joint or piriformis syndrome. Discussed options. Patient agreeable to pred taper and continue HEP. May consider pain management consult if not improving. Could consider MRI as well but patient is not currently interested in surgical options. 2. Essential hypertension - ICD9: 401.9, ICD10: I10 - Uncontrolled - Continue current medications - Recommend home blood pressure monitoring, to bring results to next visit - Encouraged sodium restriction, DASH or Mediterranean diet - Recommend regular aerobic exercise - patient declines return for BP check given winter weather may be likely. Okay for patient to monitor at home and update me in 1-2 weeks. Follow up as schedule Return sooner prn. ASTER Boyle PA-C Pain across lower back & down right leg. Pain since falling in February. Ana Lilia Langley LPN documented in this encounter [facility] 05-04-2024 Note HNO ID: [id number] Author: ANA LILIA LANGLEY LPN Service: ? Author Type: LICENSED NURSE Type: Progress Notes Filed: 05/04/2024 11:11 Note Text: Pain across lower back AND down right leg. Pain since falling in February. Ana Lilia Langley LPN [facility] 05-01-2024 Telephone encounter Note Phoned patient went over results, notes from Dianne Rueda CONSERVATION PLANNER with understanding. [facility] 05-01-2024 Miscellaneous Notes Phoned patient went over results, notes from Dianne Rueda CONSERVATION PLANNER with understanding. ----- Message from Dianne Rueda APRN.MARIAH sent at 05/01/2024 1:45 PM EST ----- Urine shows infection with E.Coli- the antibiotic she is on will cover this. Complete entire prescription. Follow-up if symptoms fail to improve. Dianne Rueda APRN.SITE ADMINISTRATOR documented in this encounter [facility] 05-01-2024 Telephone encounter Note ----- Message from Dianne Rueda APRN.MARIAH sent at 05/01/2024 1:45 PM EST ----- Urine shows infection with E.Coli- the antibiotic she is on will cover this. Complete entire prescription. Follow-up if symptoms fail to improve. Dianne Rueda APRN.SITE ADMINISTRATOR [facility] 04-29-2024 Note [facility] 04-29-2024 History of Present illness Narrative 04/29/2024 Patient presents with: UTI: Urinary frequency and burning x2 weeks SUBJECTIVE: This is a 83 year old, accompanied by mother, that is here today for Above Complaints. For the last two weeks has had urinary frequency and burning. Has not been using any OTC medication for symptoms. Admits to some abdominal discomfort to the sides. Denies confusion, fevers, chills, back pain, nausea, vomiting or hematuria Latest Ref Rng 04/29/2024 GLUCOSE UA (POCT) Negative mg/dL Negative BILIRUBIN UA (POCT) Negative Negative KETONE UA (POCT) Negative mg/dL Negative SPECIFIC GRAVITY UA (POCT) 1.005 - 1.030 1.015 HEMOGLOBIN/BLOOD UA (POCT) Negative Moderate ! PH UA (POCT) 4.5 - 8.0 6.0 PROTEIN UA (POCT) Negative mg/dL 100 ! UROBILINOGEN UA (POCT) Normal E.U./dL 0.2 NITRITE UA (POCT) Negative Negative LEUKOCYTES UA (POCT) Negative Moderate ! COLOR UA (POCT) Dark yellow CLARITY UA (POCT) Cloudy Legend: ! Abnormal PAST MEDICAL HISTORY Diagnosis Date Advance directive discussed with patient 09/01/2021 Discussed 08/2021 Benign paroxysmal positional vertigo 01/14/2019 Carotid stenosis, asymptomatic, bilateral 07/21/2018 US 07/2018: less than 20% asim. Cholecystitis, unspecified Chronic right-sided low back pain Chronic right-sided thoracic back pain 07/17/2018 Colon Cancer(cecum) 09/29/[address] 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 Esparza Facial basal cell cancer 01/12/2019 Left nasal 12/[address] Esparza Family history of early CAD 01/14/2018 GERD without esophagitis HH (hiatus hernia) 09/29/2009 History of unsteady gait 03/22/2023 Hypomagnesemia 03/22/2023 Iron deficiency anemia, unspecified Living will on file 09/01/2021 DPA: Kervin () Living will on file at physician's office 09/01/2021 DPA: Kervin () Low blood magnesium 01/14/2019 Malignant neoplasm of colon (HCC) s/p right hemicolectomy (Dr. Alan Davila) Medicare annual wellness visit, subsequent 07/17/2018 Medicare Part B:11/08/2004 Last done: 07/17/2018 Mixed hyperlipidemia 01/03/2007 Nontoxic multinodular goiter 02/20/2023 Personal history of colon cancer 12/21/2013 s/p right hemicolectomy Primary hyperparathyroidism (HCC) 04/10/2023 Seeing Endo- Dr. Libertad Mckeon RBBB 03/22/2023 Sciatica 06/28/2011 Seasonal allergic rhinitis Second hand smoke exposure 01/14/2018 Sensory hearing loss, bilateral 01/21/2018 Situational depression 09/20/2022 Squamous cell skin cancer 09/21/2021 Neck: removed 09/2021 Stage 3a chronic kidney disease (HCC) 01/14/2018 Thyroid nodule 09/30/2022 Tinnitus of left ear 01/21/[address] Carrero ALLERGIES Penicillins, Lisinopril, Vioxx [Rofecoxib], and Zoloft [Sertraline] MEDICATIONS Current Outpatient Medications Medication Sig omeprazole (PRILOSEC) 40 mg capsule Take 1 capsule by mouth once daily. Take 30 minutes before breakfast. acetaminophen (TYLENOL ARTHRITIS PAIN ORAL) Take by mouth as directed. carvedilol (COREG) 12.5 mg tablet Take 1 tablet by mouth two times a day. Magnesium Oxide 250 mg magnesium tab Take 1 in morning aspirin, enteric coated (ASPIRIN, ENTERIC COATED) 81 mg EC tablet Take 1 tablet by mouth once daily. meclizine (ANTIVERT) 12.5 mg tab Take 1 tablet by mouth two times a day. multivit-min/iron/FA/vit K/lut (CENTRUM SILVER WOMEN ORAL) Take by mouth. uuunfrp-wxsgexkgk-envcsnz D3 500 mg-5 mcg (200 unit) per tablet Take 1 tablet by mouth two times a day with meals. sodium chloride soluble tablet 1 g Take 1 tablet by mouth once daily. (Patient not taking: Reported on 04/29/2024) acetaminophen (TYLENOL) 500 mg tablet Take 1 tablet by mouth every 4 hours as needed for pain. No current facility-administered medications for this visit. Medications and allergies reviewed by this provider. SOCIAL HISTORY Social History Tobacco Use Smoking status: Never Smokeless tobacco: Never Vaping Use Vaping status: Never Used Substance Use Topics Alcohol use: No Drug use: No REVIEW OF SYSTEMS All other reviewed and negative other than HPI. OBJECTIVE: BP 133/88 Pulse 80 Temp 36.8 C (98.3 F) Resp 16 Wt 64.6 kg (142 lb 6.7 oz) SpO2 96% BMI 24.61 kg/m . Vital signs reviewed by this provider. APPEARANCE Well appearing, alert, in no acute distress, well-hydrated, well nourished. EYES conjunctiva and sclera normal. HEART RRR with normal S1 and S2, no murmurs, no gallops, no JVD appreciated LUNG clear to auscultation. No wheezes, rhonchi or rales ABDOMEN no tenderness to palpation BACK: No CVA tenderness SKIN Skin color, texture, turgor normal, no suspicious rashes or lesions to exposed skin Anxiety Screening Never done DTaP,Tdap,Td Vaccine(1 - Tdap) Never done Shingrix Vaccine(1 of 2) Never done RSV Vaccine(1 - 1-dose 75+ series) Never done Bone Density Screening due on 03/18/2025 Diabetes Screening due on 03/25/2027 Influenza Vaccine Completed Advance Directive Discussion Completed Covid-19 Vaccine Completed Pneumococcal Vaccine: 65+ Completed HPV Vaccine Aged Out ASSESSMENT/PLAN: 1. UTI symptoms - ICD9: 788.99, ICD10: R39.9 - no red flag symptoms or exam findings - red flag symptoms discussed, verbalizes understanding - push fluids - UA DIP, URINE (POC) - NITROFURANTOIN MONOHYDRATE & MACROCRYSTAL 100 MG ORAL CAP - URINE CULTURE Dianne Rueda APRN.SITE ADMINISTRATOR Prescription instructions reviewed with patient as applicable. Patient advised if symptoms do not improve or if symptoms worsen sooner, to contact their primary care physician. Potential red flag symptoms discussed with the patient. Reviewed appropriate action plan to take if red flag symptoms occur. Patient agreeable to treatment plan. Medical Decision Making: Problems: Low: Acute, uncomplicated illness or injury Data: Unique test(s) ordered: 2 Risk: Moderate: Drug management Medical Decision Making Level: 3 - Low documented in this encounter [facility] 04-29-2024 Telephone encounter Note Patient calls and states that she thinks she has an UTI. Patient states that she has urinary frequency and burning after urination. Patient reports that she is constantly up and down at night having to urinate. Patient states that when she stands up she begins to urinate. Patient advised that she needs to set up appointment to be evaluated. Patient is scheduled to see Dianne to discuss this today 04/29/2024. Kim Ferguson RN [facility] 04-29-2024 Miscellaneous Notes Patient calls and states that she thinks she has an UTI. Patient states that she has urinary frequency and burning after urination. Patient reports that she is constantly up and down at night having to urinate. Patient states that when she stands up she begins to urinate. Patient advised that she needs to set up appointment to be evaluated. Patient is scheduled to see Dianne to discuss this today 04/29/2024. Kim Ferguson RN documented in this encounter [facility] 04-03-2024 Telephone encounter Note Robert at [facility] calling to request pt's recent BMP lab results to be used mutually with pt's appt there. Faxed as requested to [phone] Juliann Vu RN [facility] 04-03-2024 Miscellaneous Notes Robert at [facility] calling to request pt's recent BMP lab results to be used mutually with pt's appt there. Faxed as requested to [phone] Juliann Vu RN documented in this encounter [facility] 03-26-2024 Telephone encounter Note Pt notified of results. Venita Green LPN [facility] 03-26-2024 Miscellaneous Notes Pt notified of results. Venita Green LPN Let patient know that her potassium level is back to normal. Sodium is still good. Thyroid normal Blood counts are okay. Cassandra Arshad PA-C documented in this encounter [facility] 03-26-2024 Telephone encounter Note Pt notified of rx change with verbalized understanding. Venita Green LPN [facility] 03-26-2024 Miscellaneous Notes Pt notified of rx change with verbalized understanding. Venita Green LPN The following approved medication requests have been transmitted electronically. Requested Prescriptions Signed Prescriptions Disp Refills omeprazole (PRILOSEC) 40 mg capsule 90 capsule 1 Sig: Take 1 capsule by mouth once daily. Take 30 minutes before breakfast. Authorizing Provider: CASSANDRA ARSHAD PA-C [facility] calling to request a new script for Omeprazole 40mg daily. Insurance doesn't cover Omeprazole 20 mg two capsules daily. Would require a prior auth. Ursula Yuen, MILLICENT documented in this encounter [facility] 03-26-2024 Telephone encounter Note Let patient know that her potassium level is back to normal. Sodium is still good. Thyroid normal Blood counts are okay. Cassandra Arshad PA-C [facility] 03-26-2024 Telephone encounter Note The following approved medication requests have been transmitted electronically. Requested Prescriptions Signed Prescriptions Disp Refills omeprazole (PRILOSEC) 40 mg capsule 90 capsule 1 Sig: Take 1 capsule by mouth once daily. Take 30 minutes before breakfast. Authorizing Provider: CASSANDRA ARSHAD PA-C [facility] 03-25-2024 Telephone encounter Note [facility] calling to request a new script for Omeprazole 40mg daily. Insurance doesn't cover Omeprazole 20 mg two capsules daily. Would require a prior auth. Ursula Yuen RN [facility] 03-25-2024 Note [facility] 03-25-2024 History of Present illness Narrative Chief Complaint Patient presents with: 6 Month Exam HPI Leonor Pal is a 83 year old female who presents here today for Chronic Medical Conditions.. Patient with hx of carotid artery disease, elevated blood sugar, HTN, GERD, Iron def anemia, hyperlipidemia, CKD stage 3, hyponatremia, chronic back pain, tinnitus as well as those as below. Patient denies concerns today. Past medical history, appointments, medications, allergies reviewed. Previous Medical History PAST MEDICAL HISTORY Diagnosis Date Advance directive discussed with patient 09/01/2021 Discussed 08/2021 Benign paroxysmal positional vertigo 01/14/2019 Carotid stenosis, asymptomatic, bilateral 07/21/2018 US 07/2018: less than 20% asim. Cholecystitis, unspecified Chronic right-sided low back pain Chronic right-sided thoracic back pain 07/17/2018 Colon Cancer(cecum) 09/29/[address] 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 Esparza Facial basal cell cancer 01/12/2019 Left nasal 12/[address] Esparza Family history of early CAD 01/14/2018 GERD without esophagitis HH (hiatus hernia) 09/29/2009 History of unsteady gait 03/22/2023 Hypomagnesemia 03/22/2023 Iron deficiency anemia, unspecified Living will on file 09/01/2021 DPA: Kervin () Living will on file at physician's office 09/01/2021 DPA: Kervin () Low blood magnesium 01/14/2019 Malignant neoplasm of colon (HCC) s/p right hemicolectomy (Dr. Alan Davila) Medicare annual wellness visit, subsequent 07/17/2018 Medicare Part B:11/08/2004 Last done: 07/17/2018 Mixed hyperlipidemia 01/03/2007 Nontoxic multinodular goiter 02/20/2023 Personal history of colon cancer 12/21/2013 s/p right hemicolectomy Primary hyperparathyroidism (HCC) 04/10/2023 Seeing Endo- Dr. Libertad Mckeon RBBB 03/22/2023 Sciatica 06/28/2011 Seasonal allergic rhinitis Second hand smoke exposure 01/14/2018 Sensory hearing loss, bilateral 01/21/2018 Situational depression 09/20/2022 Squamous cell skin cancer 09/21/2021 Neck: removed 09/2021 Stage 3a chronic kidney disease (HCC) 01/14/2018 Thyroid nodule 09/30/2022 Tinnitus of left ear 01/21/[address] Carrero Previous Surgical History PAST SURGICAL HISTORY Procedure Laterality Date 2D ECHO (EXEP) 05/01/2017 65%, with mild diast dysf and 1+ AL. CARDIAC STRESS TEST 05/01/2017 negative CHOLECYSTECTOMY 1985 Cholecystectomy COLONOSCOPY 07/13/2016 Repeat 07/2021 COLONOSCOPY FLX DX W/COLLJ SPEC WHEN PFRMD 12/22/2010 repeat in -2013 COLONOSCOPY FLX DX W/COLLJ SPEC WHEN PFRMD 01/08/2014 per repeat in 3-5 years COLONOSCOPY W/BIOPSY SINGLE/MULTIPLE 09/29/2009 Cecal carcinoma EGD TRANSORAL BIOPSY SINGLE/MULTIPLE 09/29/2009 Small HH HEART CATHETERIZATION 07/30/2018 normal coronaries PAST SURGICAL HISTORY OF 10/2009 Rt hemicolectomy Family History FAMILY HISTORY Problem Relation Age of Onset Cancer Sister Metastatic cancer (lung and brain; ?primary); 2007 Patient Allergies ALLERGIES Allergen Reactions Penicillins Swelling, Myalgia Tolerated cephalexin 10/2022 Lisinopril Cough Vioxx [Rofecoxib] Unknown Zoloft [Sertraline] GI Upset Patient thought it made her feel sick, however she stated she was taking the new med 3 times a day and didn't start the other medication. (Zoloft and ativan were prescribed at same time). So we question if she was taking the correct medication or taking it as prescribed. Current Medications Current Outpatient Medications on File Prior to Visit Medication Sig acetaminophen (TYLENOL ARTHRITIS PAIN ORAL) Take by mouth as directed. sodium chloride soluble tablet 1 g Take 1 tablet by mouth once daily. Magnesium Oxide 250 mg magnesium tab Take 1 in morning aspirin, enteric coated (ASPIRIN, ENTERIC COATED) 81 mg EC tablet Take 1 tablet by mouth once daily. omeprazole (PRILOSEC) 20 mg capsule Take 2 capsules by mouth once daily. Take 30 minutes before breakfast. carvedilol (COREG) 12.5 mg tablet Take 1 tablet by mouth two times a day. meclizine (ANTIVERT) 12.5 mg tab Take 1 tablet by mouth two times a day. multivit-min/iron/FA/vit K/lut (CENTRUM SILVER WOMEN ORAL) Take by mouth. purzghf-fvhavtzed-ckuxcsu D3 500 mg-5 mcg (200 unit) per tablet Take 1 tablet by mouth two times a day with meals. oxyCODONE IR (ROXICODONE) 5 mg immediate release tablet Take 5 mg by mouth every 6 hours as needed. for pain for 5 days (Patient not taking: Reported on 03/25/2024) acetaminophen (TYLENOL) 500 mg tablet Take 1 tablet by mouth every 4 hours as needed for pain. No current facility-administered medications on file prior to visit. Social History Social History Tobacco Use Smoking status: Never Smokeless tobacco: Never Vaping Use Vaping status: Never Used Substance Use Topics Alcohol use: No Drug use: No Review of Symptoms REVIEW OF SYSTEMS GENERAL: No weight loss, malaise or fevers NECK: Negative for lumps, goiter, pain and significant neck swelling RESPIRATORY: Negative for cough, hemoptysis, wheezing, COPD, dyspnea or shortness of breath CARDIOVASCULAR: Negative for chest pain, leg swelling, hypertension, CHF or palpitations NEURO: No history of headaches, syncope, paralysis, seizures or tremors EXAM: BP 124/80 (BP Site: Left Arm, BP Position: Sitting, BP Cuff Size: Regular Adult) Pulse 90 Temp 37 C (98.6 F) Resp 16 Wt 65.3 kg (144 lb) SpO2 97% BMI 24.89 kg/m General Appearance: Well appearing, alert, in no acute distress, well-hydrated, well nourished.. Neck: Supple, no adenopathy; thyroid symmetric, normal size, no bruits. Lungs: Lungs clear to auscultation. No wheezing, rhonchi, rales.. Heart: RRR without murmur, gallop, or rubs. No ectopy. Extremities: No deformities, edema, skin discoloration, clubbing or cyanosis. Good capillary refill. . Peripheral Pulses: Normal. Health Maintenance List Anxiety Screening Never done DTaP,Tdap,Td Vaccine(1 - Tdap) Never done Shingrix Vaccine(1 of 2) Never done RSV Vaccine(1 - 1-dose 75+ series) Never done Influenza Vaccine(1) due on 02/09/2024 Bone Density Screening due on 03/18/2025 Diabetes Screening due on 03/16/2027 Advance Directive Discussion Completed Covid-19 Vaccine Completed Pneumococcal Vaccine: 65+ Completed HPV Vaccine Aged Out Data reviewed Latest Ref Rng 11/15/2023 02/20/2024 03/02/2024 03/16/2024 Color Yellow Yellow Clarity Clear Clear Glucose, Urine Negative Negative Bilirubin, Urine Negative Negative Ketones, Urine Negative Trace ! Specific [place], Ur 1.005 - 1.030 1.032 (H) Hemoglobin/Blood,Ur Negative Negative pH, Urine <8.5 5.5 Protein, Urine Negative Trace ! Urobilinogen 0.2-1.0 EU/dL 0.2 EU/dL Nitrites Negative Negative Leukest Negative Negative WBC, Urine 0-5 /HPF 0-5 /HPF RBC, Urine 0-2 /HPF 0-2 /HPF Bacteria Negative /HPF Negative Epithelial Cells /HPF Few Hyaline Cast 0 /LPF 0 /LPF Glucose 74 - 99 mg/dL 100 (H) 90 118 (H) BUN 7 - 21 mg/dL 29 (H) 19 15 Creatinine 0.58 - 0.96 mg/dL 1.39 (H) 1.10 (H) 1.06 (H) Sodium 136 - 144 mmol/L 132 (L) 136 138 Potassium 3.7 - 5.1 mmol/L 4.4 4.2 3.4 (L) Chloride 98 - 107 mmol/L 103 108 (H) 107 CO2 22 - 30 mmol/L 17 (L) 19 (L) 18 (L) Anion Gap 8 - 15 mmol/L 12 9 13 Calcium 8.5 - 10.2 mg/dL 8.9 8.9 9.1 eGFR >=60 mL/min/1.73m 37 (L) 50 (L) 52 (L) Total Cholesterol, Nonfasting <200 mg/dL 146 Triglycerides, Nonfasting <150 mg/dL 96 HDL Cholesterol, Nonfasting >39 mg/dL 51 LDL Cholesterol, Nonfasting <100 mg/dL 76 Non HDL Cholesterol, Nonfasting <130 mg/dL 95 VLDL Cholesterol, Nonfasting <30 mg/dL 19 Total Chol/HDL Ratio, Nonfasting <5.10 mg/dL 2.86 LDL/HDL Ratio, Nonfasting <2.54 mg/dL 1.49 Hemoglobin A1C 4.3 - 5.6 % 5.4 Estimated Average Glucose mg/dL 108 Magnesium 1.7 - 2.3 mg/dL 1.7 1.7 Legend: ! Abnormal (H) High (L) Low ASSESSMENT/PLAN: 1. Bruising - ICD9: 924.9, ICD10: T14.8XXA (primary diagnosis) Check: - COMPLETE BLOOD COUNT AND DIFFERENTIAL 2. Encounter for immunization - ICD9: V03.89, ICD10: Z23 - INFLUENZA VACCINE, PRSV FREE, AGE 65+ YR, HIGH DOSE, TRIVALENT (FLUZONE HIGH-DOSE) 3. Hair loss - ICD9: 704.00, ICD10: L65.9 Check: - THYROID STIMULATING HORMONE 4. Essential hypertension - ICD9: 401.9, ICD10: I10 - Controlled - Continue current medications - Recommend home blood pressure monitoring, to bring results to next visit - Encouraged sodium restriction, DASH or Mediterranean diet - Recommend regular aerobic exercise 5. Mixed hyperlipidemia - ICD9: 272.2, ICD10: E78.2 - Controlled - Continue current medications - Counseled on healthy diet and regular exercise - LIPID PANEL, NONFASTING 6. GERD without esophagitis - ICD9: 530.81, ICD10: K21.9 - stable 7. Stage 3b chronic kidney disease (HCC) - ICD9: 585.3, ICD10: N18.32 - eGFR: 52 Improving - Counseled on avoiding NSAIDs, adequate hydration - COMPREHENSIVE METABOLIC PANEL 8. Elevated fasting blood sugar - ICD9: 790.21, ICD10: R73.01 - HEMOGLOBIN A1C - COMPREHENSIVE METABOLIC PANEL 9. Primary hyperparathyroidism (HCC) - ICD9: 252.01, ICD10: E21.0 Cont with endo 10. Iron deficiency anemia, unspecified iron deficiency anemia type - ICD9: 280.9, ICD10: D50.9 - COMPLETE BLOOD COUNT AND DIFFERENTIAL - IRON AND TIBC 11. Age-related osteoporosis without current pathological fracture - ICD9: 733.01, ICD10: M81.0 Patient to set up DXA 12. Carotid stenosis, asymptomatic, bilateral - ICD9: 433.10, 433.30, ICD10: I65.23 No new issues 13. Nontoxic multinodular goiter - ICD9: 241.1, ICD10: E04.2 - THYROID STIMULATING HORMONE 14. Medication management - ICD9: V58.69, ICD10: Z79.899 - THYROID STIMULATING HORMONE - VITAMIN B12 - MAGNESIUM Cassandra Arshad PA-C documented in this encounter [facility] 03-17-2024 History of Present illness Narrative [facility] LAST SEEN 11-26-2023 RE:Post parathyroidectomy care - 2 gland R and L upper 03-25-2023 IF THIS IS A VIRTUAL VISIT: I have communicated my name and licensure. The patient's identity and location were verified. Either the patient or their legal exhibit display representative has been informed of the risks, benefits, and alternatives based on a remote evaluation, and consents to proceed remotely per [place] law. I will communicate my recommendations and findings via shared medical record and/or USPS CC: s/p HPTH surgery HPI: Leonor Pal is a 83 year old female who initially presented 05-14-2023 in referral for my expert opinion regarding post parathyroidectomy care - no milk but drinks tea and water and coffee; has cheese -- some - no individual D supplement - using gummy vitafusion Ca - no cramping and no tingling - no swallowing issues -- FOLLOW UP VISIT 11-26-2023 VIRTUALLY: Presents in follow up. Labs as noted below -- all WNL. Calcium intake -- still taking bid supplement + Centrum Silver FOLLOW UP VISIT 03-17-2024 VIRTUALLY Presents in follow up; Serum calcium continues to improve She fell and fx pelvis in Feb -- she is doing PT at home and using a walker and slowly transitioning to a cane - Ortho - happy with her progress - lost her hair due to some sort of tx -- now growing back REVIEW OF SYSTEMS GENERAL: wt is stable HEENT: vision is ok ENDO/NECK: Denies jaw pain, no difficulty swallowing; CARDIOVASCULAR: none GI: none : NEPHROLITHIASIS: none ENDO/MUSCULOSKELETAL/BONE: none FRACTURES: pelvis SKIN: PSYCH: HEMATOLOGY/LYMPHOLOGY NEURO: MEDICAL HISTORY: PAST MEDICAL HISTORY Diagnosis Date Advance directive discussed with patient 09/01/2021 Discussed 08/2021 Benign paroxysmal positional vertigo 01/14/2019 Carotid stenosis, asymptomatic, bilateral 07/21/2018 07/2018: less than 20% asim. Cholecystitis, unspecified Chronic right-sided low back pain Chronic right-sided thoracic back pain 07/17/2018 Colon Cancer(cecum) 09/29/[address] 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 Esparza Facial basal cell cancer 01/12/2019 Left nasal 12/[address] Esparza Family history of early CAD 01/14/2018 GERD without esophagitis HH (hiatus hernia) 09/29/2009 History of unsteady gait 03/22/2023 Hypomagnesemia 03/22/2023 Iron deficiency anemia, unspecified Living will on file 09/01/2021 DPA: Kervin () Living will on file at physician's office 09/01/2021 DPA: Kervin () Low blood magnesium 01/14/2019 Malignant neoplasm of colon (HCC) s/p right hemicolectomy (Dr. Alan Davila) Medicare annual wellness visit, subsequent 07/17/2018 Medicare Part B:11/08/2004 Last done: 07/17/2018 Mixed hyperlipidemia 01/03/2007 Nontoxic multinodular goiter 02/20/2023 Personal history of colon cancer 12/21/2013 s/p right hemicolectomy Primary hyperparathyroidism (HCC) 04/10/2023 Seeing Endo- Dr. Libertad Mckeon RBBB 03/22/2023 Sciatica 06/28/2011 Seasonal allergic rhinitis Second hand smoke exposure 01/14/2018 Sensory hearing loss, bilateral 01/21/2018 Situational depression 09/20/2022 Squamous cell skin cancer 09/21/2021 Neck: removed 09/2021 Stage 3a chronic kidney disease (HCC) 01/14/2018 Thyroid nodule 09/30/2022 Tinnitus of left ear 01/21/[address] Carrero SURGICAL HISTORY: PAST SURGICAL HISTORY Procedure Laterality Date 2D ECHO (EXEP) 05/01/2017 65%, with mild diast dysf and 1+ AL. CARDIAC STRESS TEST 05/01/2017 negative CHOLECYSTECTOMY 1985 Cholecystectomy COLONOSCOPY 07/13/2016 Repeat 07/2021 COLONOSCOPY FLX DX W/COLLJ SPEC WHEN PFRMD 12/22/2010 repeat in -2013 COLONOSCOPY FLX DX W/COLLJ SPEC WHEN PFRMD 01/08/2014 per repeat in 3-5 years COLONOSCOPY W/BIOPSY SINGLE/MULTIPLE 09/29/2009 Cecal carcinoma EGD TRANSORAL BIOPSY SINGLE/MULTIPLE 09/29/2009 Small HH HEART CATHETERIZATION 07/30/2018 normal coronaries PAST SURGICAL HISTORY OF 10/2009 Rt hemicolectomy FAMILY HISTORY: Family History Problem Relation Age of Onset Cancer Sister Metastatic cancer (lung and brain; ?primary); 2007 SOCIAL HISTORY: Social History Marital status: Spouse name: Years of education: Number of children: Social History Main Topics Drug use: Unknown DXA: DATE OF EXAM: Mar 18 2023 2:44PM WRB 0802 - BD VFA WITH DXA - AXIAL SKELETON / PROCEDURE REASON: Hyperparathyroidism (HCC) * * * * Physician Interpretation * * * * * * * * * * * * ORIGINAL REPORT * * * * * * * * PROCEDURE: BD VFA WITH DXA - AXIAL SKELETON INDICATION: Hyperparathyroidism (HCC) TECHNIQUE: Low dose AP spine and hip images COMPARISON: 09/04/2010 LUMBAR SPINE: The bone mineral density from L1 through L4 is 0.890 grams per square centimeter which yields a T-score of -1.4.. LEFT FEMORAL NECK: The bone mineral density of the femoral neck is 0.557 grams per square centimeter which yields a T-score of -2.6.. Previous BMD(g/cm2 ) 0.707 . The change is a statistically significant decrease in bone density. LEFT HIP: The bone mineral density of the total region of the hip is 0.689 grams per square centimeter which yields a T-score of minus -2.1.. RIGHT FEMORAL NECK: The bone mineral density of the femoral neck is 0.559 grams per square centimeter which yields a T-score of -2.3.. RIGHT HIP: The bone mineral density of the total region of the hip is 0.730 grams per square centimeter which yields a T-score of -1.7.. 10-year Fracture Risk (FRAX): Major osteoporotic fracture risk 19% Hip fracture risk 7.1% CHANGE IS STATISTICALLY SIGNIFICANT IN THE SPINE OR HIP IF GREATER THAN OR EQUAL TO 0.04g/cm2 IMPRESSION: The patient's T- scores meet the World Health Organization classification for osteoporosis in the LEFT femoral neck. The patient may have an increased risk of insufficiency fractures. Recommendation: Follow up study in 2 years WORLD HEALTH ORG. CLASSIFICATION OF BONE MASS CLASSIFICATION T-SCORE Normal Greater than -1 Low Bone Mass Between -1 and -2.5 (Osteopenia) Osteoporosis Less than or equal to -2.5 * * * * * * * * ADDENDUM #1 * * * * * * * * Addendum: Vertebral fracture analysis: No fractures are identified on the single digital lateral view the spine I have personally reviewed these images extensively: LABS: Latest Ref Rng 11/15/2023 02/20/2024 03/02/2024 03/16/2024 Protein, Total 6.3 - 8.0 g/dL 7.2 Albumin 3.9 - 4.9 g/dL 4.1 Calcium 8.5 - 10.2 mg/dL 9.1 8.9 8.9 9.1 Bilirubin, Total 0.2 - 1.3 mg/dL 0.5 Alkaline Phosphatase 34 - 123 U/L 59 AST 13 - 35 U/L 19 ALT 7 - 38 U/L 9 Glucose 74 - 99 mg/dL 104 (H) 100 (H) 90 118 (H) BUN 7 - 21 mg/dL 16 29 (H) 19 15 Creatinine 0.58 - 0.96 mg/dL 1.23 (H) 1.39 (H) 1.10 (H) 1.06 (H) Sodium 136 - 144 mmol/L 131 (L) 132 (L) 136 138 Potassium 3.7 - 5.1 mmol/L 3.7 4.4 4.2 3.4 (L) Chloride 98 - 107 mmol/L 98 103 108 (H) 107 CO2 22 - 30 mmol/L 22 17 (L) 19 (L) 18 (L) Anion Gap 8 - 15 mmol/L 11 12 9 13 eGFR >=60 mL/min/1.73m 43 (L) 37 (L) 50 (L) 52 (L) Vitamin D 25 Hydroxy 31.0 - 80.0 ng/mL 54.7 PTH, Intact 15 - 65 pg/mL 45 Magnesium 1.7 - 2.3 mg/dL 1.7 1.7 Current Outpatient Medications on File Prior to Visit Medication Sig sodium chloride soluble tablet 1 g Take 1 tablet by mouth once daily. oxyCODONE IR (ROXICODONE) 5 mg immediate release tablet Take 5 mg by mouth every 6 hours as needed. for pain for 5 days Magnesium Oxide 250 mg magnesium tab Take 1 in morning aspirin, enteric coated (ASPIRIN, ENTERIC COATED) 81 mg EC tablet Take 1 tablet by mouth once daily. omeprazole (PRILOSEC) 20 mg capsule Take 2 capsules by mouth once daily. Take 30 minutes before breakfast. carvedilol (COREG) 12.5 mg tablet Take 1 tablet by mouth two times a day. meclizine (ANTIVERT) 12.5 mg tab Take 1 tablet by mouth two times a day. multivit-min/iron/FA/vit K/lut (CENTRUM SILVER WOMEN ORAL) Take by mouth. nbysprr-rbykznqlo-lywbuwe D3 500 mg-5 mcg (200 unit) per tablet Take 1 tablet by mouth two times a day with meals. acetaminophen (TYLENOL) 500 mg tablet Take 1 tablet by mouth every 4 hours as needed for pain. No current facility-administered medications on file prior to visit. PHYSICAL EXAMINATION: VIRTUALLY General appearance: well appearing, alert, and in no acute distress - assisted by her daughter at the visit ASSESSMENT & PLAN ASSESSMENT/PLAN: 1. Primary hyperparathyroidism (HCC) - ICD9: 252.01, ICD10: E21.0 (primary diagnosis) - post-op visit - continues to do well clinically - biochemically -- serum calcium remains low--nl - she is to continue with bid calcium supplements in addition to her diet 2. Age-related osteoporosis without current pathological fracture - ICD9: 733.01, ICD10: M81.0 - will need to let the skeleton remineralize for the next 6 - 12 months or so and then strongly consider an antiresorptive -- 1- year post op 03-25-2024 -- orders were placed previously; ok to schedule at the [facility] for late Mar or after - see back afterwards to discuss treatment for OP! follow up in early April Libertad Mckeon MS, RD, MD, CCD, FACN, FACP, FACE [facility] Office Building Office Any part of this document that has been added/copied & pasted from other documents has been reviewed for accuracy and updated as appropriate at the time of the patient encounter documented in this encounter [facility] 03-17-2024 Note HNO ID: [id number] Author: LIBERTAD MCKEON MD Service: ? 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 The patient's identity and location were verified. Either the patient or their legal exhibit display representative has been informed of the risks, benefits, and alternatives based on a remote evaluation, and consents to proceed remotely per [place] law. I will communicate my recommendations and findings via shared medical record and/or USPS CC: s/p HPT surgery HPI: Leonor Pal is a 83 year old female who initially presented 05-14-2023 in referral for my expert opinion regarding post parathyroidectomy care - no milk but drinks tea and water and coffee; has cheese -- some - no individual D supplement - using gummy vitafusion Ca - no cramping and no tingling - no swallowing issues -- FOLLOW UP VISIT 11-26-2023 VIRTUALLY: Presents in follow up. Labs as noted below -- all WNL. Calcium intake -- still taking bid supplement + Centrum Silver FOLLOW UP VISIT 03-17-2024 VIRTUALLY Presents in follow up; Serum calcium continues to improve She fell and fx pelvis in Feb -- she is doing PT at home and using a walker and slowly transitioning to a cane - Ortho - happy with her progress - lost her hair due to some sort of tx -- now growing back REVIEW OF SYSTEMS GENERAL: wt is stable HEENT: vision is ok ENDO/NECK: Denies jaw pain, no difficulty swallowing; CARDIOVASCULAR: none GI: none : NEPHROLITHIASIS: none ENDO/MUSCULOSKELETAL/BONE: none FRACTURES: pelvis SKIN: PSYCH: HEMATOLOGY/LYMPHOLOGY NEURO: MEDICAL HISTORY: PAST MEDICAL HISTORY Diagnosis Date Advance directive discussed with patient 09/01/2021 Discussed 08/2021 Benign paroxysmal positional vertigo 01/14/2019 Carotid stenosis, asymptomatic, bilateral 07/21/2018 US 07/2018: less than 20% asim. Cholecystitis, unspecified Chronic right-sided low back pain Chronic right-sided thoracic back pain 07/17/2018 Colon Cancer(cecum) 09/29/[address] 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 Esparza Facial basal cell cancer 01/12/2019 Left nasal 12/[address] Esparza Family history of early CAD 01/14/2018 GERD without esophagitis HH (hiatus hernia) 09/29/2009 History of unsteady gait 03/22/2023 Hypomagnesemia 03/22/2023 Iron deficiency anemia, unspecified Living will on file 09/01/2021 DPA: Kervin () Living will on file at physician's office 09/01/2021 DPA: Kervin () Low blood magnesium 01/14/2019 Malignant neoplasm of colon (HCC) s/p right hemicolectomy (Dr. Alan Davila) Medicare annual wellness visit, subsequent 07/17/2018 Medicare Part B:11/08/2004 Last done: 07/17/2018 Mixed hyperlipidemia 01/03/2007 Nontoxic multinodular goiter 02/20/2023 Personal history of colon cancer 12/21/2013 s/p right hemicolectomy Primary hyperparathyroidism (HCC) 04/10/2023 Seeing Endo- Dr. Libertad Mckeon RBBB 03/22/2023 Sciatica 06/28/2011 Seasonal allergic rhinitis Second hand smoke exposure 01/14/2018 Sensory hearing loss, bilateral 01/21/2018 Situational depression 09/20/2022 Squamous cell skin cancer 09/21/2021 Neck: removed 09/2021 Stage 3a chronic kidney disease (HCC) 01/14/2018 Thyroid nodule 09/30/2022 Tinnitus of left ear 01/21/[address] Carrero SURGICAL HISTORY: PAST SURGICAL HISTORY Procedure Laterality Date 2D ECHO (EXEP) 05/01/2017 65%, with mild diast dysf and 1+ AL. CARDIAC STRESS TEST 05/01/2017 negative CHOLECYSTECTOMY 1985 Cholecystectomy COLONOSCOPY 07/13/2016 Repeat 07/2021 COLONOSCOPY FLX DX W/COLLJ SPEC WHEN PFRMD 12/22/2010 repeat in COLONOSCOPY FLX DX W/COLLJ SPEC WHEN PFRMD 01/08/2014 per repeat in 3-5 years COLONOSCOPY W/BIOPSY SINGLE/MULTIPLE 09/29/2009 Cecal carcinoma EGD TRANSORAL BIOPSY SINGLE/MULTIPLE 09/29/2009 Small HH HEART CATHETERIZATION 07/30/2018 normal coronaries PAST SURGICAL HISTORY OF 10/2009 Rt hemicolectomy FAMILY HISTORY: Family History Problem Relation Age of Onset Cancer Sister Metastatic cancer (lung and brain; ?primary); 2007 SOCIAL HISTORY: Social History Marital status: Spouse name: Years of education: Number of children: Social History Main Topics Drug use: Unknown DXA: DATE OF EXAM: Mar 18 2023 2:44PM WRB 0802 - BD VFA WITH DXA - AXIAL SKELETON / ACCESSION (more content not included)... [facility] 03-17-2024 Telephone encounter Note Patient calls and notified of results and providers instructions. Patient verbalizes understanding. Declined lab appt. Will be here on the 16 for appt and have it done that day. Libia Genao RN [facility] 03-17-2024 Miscellaneous Notes Patient calls and notified of results and providers instructions. Patient verbalizes understanding. Declined lab appt. Will be here on the 16 th for appt and have it done that day. Libia Genao RN Please let patient know her sodium is better but her potassium is slightly low. Repeat bmp ordered for 1 week. documented in this encounter [facility] 03-17-2024 Telephone encounter Note Please let patient know her sodium is better but her potassium is slightly low. Repeat bmp ordered for 1 week. [facility] 03-16-2024 Note [facility] 03-16-2024 History of Present illness Narrative Jonny Suero MD Department of Orthopaedics [facility] [address] [place] [address] Dept: [phone] Dept March 16, 2024 CHIEF COMPLAINT: Established Patient and Fracture of the Pelvis (R superior and inferior pubic ramus fractures. Xrays today) HPI Pain Pain Level: 4 Pain Location: Hip-Right (left increased recently) Description: Aching, Dull Duration Amount of Time: 4 Duration Units: Weeks Frequency: Intermittent Intervention/Comfort measure: Reposition, Cold, Heat ASSESSMENT: S32.82XA Multiple closed fractures of pelvis without disruption of pelvic ring, initial encounter ([facility]) Comment: nondisplaced fractures of the right superior and inferior rami. PLAN: She did have a recent fall, known pubic rami fractures but I am wondering if maybe it a bit of an insufficiency fracture in her sacrum, or simply compensating as she has been on a walker and being cautious with the right side of the body. We had a pretty good discussion about a CT scan would likely help us with that diagnosis, but she has been doing a lot better, not requiring as much medication and at that Tylenols been helping. I told her to continue the light exercises they have been giving her and she can use between the walker and a cane until she gets stronger. Follow-up as needed. FOLLOW UP INSTRUCTIONS: As above OBJECTIVE: Ms. Leonor Pal is a pleasant 83 year old in no apparent distress. Gen:There were no vitals taken for this visit. nl development, non obese, no deformities ENT: Normocephalic, normal hearing, moist mucosa Skin: no rash, bruising or lesions. Good turgor. Psych: cooperative and appropriate, alert and oriented x 3, good mood and affect. Musculoskeletal: Patient is walking a bit gingerly but without any obvious antalgia. She just has a bit of tenderness over the left-sided sacrum and near the SI joint. IMAGING: IMPRESSION: There are subacute appearing minimally displaced right pubic rami fractures. There may be a nondisplaced right sacral ala fracture. Hip joint spaces are maintained. The sacroiliac joints and symphysis pubis appear intact. There are multilevel lower lumbar degenerative changes. Decision Science Analyst: CECILE Transcribe Date/Time: Mar 19 2024 10:48A Dictated by : JIM MOORE MD This examination was interpreted and the report reviewed and electronically signed by: JIM MOORE MD on Mar 19 2024 10:49AM EST Results-Findings * * *Final Report* * * DATE OF EXAM: Mar 16 2024 8:55AM WRX [id number] - XR PELVIS 2V INLET/OUTLET / PROCEDURE REASON: Multiple closed fractures of pelvis without disruption of pelvic ring, initial e * * * * Physician Interpretation * * * * EXAMINATION / TECHNIQUE: XR PELVIS 2V INLET/OUTLET HISTORY: PT STATES SHE FELL 1 MONTH AGO, RIGHT SIDE PELVIS FX FOLLOW UP Multiple closed fractures of pelvis without disruption of pelvic ring, initial encounter ([facility]) COMPARISON: CT abdomen/pelvis dated 04/14/2021. RESULT: See Impression Supporting Subjective Information Below: Past Medical History: PAST MEDICAL HISTORY Diagnosis Date Advance directive discussed with patient 09/01/2021 Discussed 08/2021 Benign paroxysmal positional vertigo 01/14/2019 Carotid stenosis, asymptomatic, bilateral 07/21/2018 US 07/2018: less than 20% asim. Cholecystitis, unspecified Chronic right-sided low back pain Chronic right-sided thoracic back pain 07/17/2018 Colon Cancer(cecum) 09/29/[address] 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 Esparza Facial basal cell cancer 01/12/2019 Left nasal 12/[address] Esparza Family history of early CAD 01/14/2018 GERD without esophagitis HH (hiatus hernia) 09/29/2009 History of unsteady gait 03/22/2023 Hypomagnesemia 03/22/2023 Iron deficiency anemia, unspecified Living will on file 09/01/2021 DPA: Kervin () Living will on file at physician's office 09/01/2021 DPA: Kervin () Low blood magnesium 01/14/2019 Malignant neoplasm of colon (HCC) s/p right hemicolectomy (Dr. Alan Davila) Medicare annual wellness visit, subsequent 07/17/2018 Medicare Part B:11/08/2004 Last done: 07/17/2018 Mixed hyperlipidemia 01/03/2007 Nontoxic multinodular goiter 02/20/2023 Personal history of colon cancer 12/21/2013 s/p right hemicolectomy Primary hyperparathyroidism (HCC) 04/10/2023 Seeing Endo- Dr. Libertad Mckeon RBBB 03/22/2023 Sciatica 06/28/2011 Seasonal allergic rhinitis Second hand smoke exposure 01/14/2018 Sensory hearing loss, bilateral 01/21/2018 Situational depression 09/20/2022 Squamous cell skin cancer 09/21/2021 Neck: removed 09/2021 Stage 3a chronic kidney disease (HCC) 01/14/2018 Thyroid nodule 09/30/2022 Tinnitus of left ear 01/21/[address] Carrero Past Surgical History: PAST SURGICAL HISTORY Procedure Laterality Date 2D ECHO (EXEP) 05/01/2017 65%, with mild diast dysf and 1+ AL. CARDIAC STRESS TEST 05/01/2017 negative CHOLECYSTECTOMY 1985 Cholecystectomy COLONOSCOPY 07/13/2016 Repeat 07/2021 COLONOSCOPY FLX DX W/COLLJ SPEC WHEN PFRMD 12/22/2010 repeat in COLONOSCOPY FLX DX W/COLLJ SPEC WHEN PFRMD 01/08/2014 per repeat in 3-5 years COLONOSCOPY W/BIOPSY SINGLE/MULTIPLE 09/29/2009 Cecal carcinoma EGD TRANSORAL BIOPSY SINGLE/MULTIPLE 09/29/2009 Small HH HEART CATHETERIZATION 07/30/2018 normal coronaries PAST SURGICAL HISTORY OF 10/2009 Rt hemicolectomy Family History: FAMILY HISTORY Problem Relation Age of Onset Cancer Sister Metastatic cancer (lung and brain; ?primary); 2007 Social History: Social History Tobacco Use Smoking status: Never Smokeless tobacco: Never Vaping Use Vaping status: Never Used Substance Use Topics Alcohol use: No Drug use: No Medications: Current Outpatient Medications Medication Sig sodium chloride soluble tablet 1 g Take 1 tablet by mouth once daily. oxyCODONE IR (ROXICODONE) 5 mg immediate release tablet Take 5 mg by mouth every 6 hours as needed. for pain for 5 days Magnesium Oxide 250 mg magnesium tab Take 1 in morning aspirin, enteric coated (ASPIRIN, ENTERIC COATED) 81 mg EC tablet Take 1 tablet by mouth once daily. omeprazole (PRILOSEC) 20 mg capsule Take 2 capsules by mouth once daily. Take 30 minutes before breakfast. carvedilol (COREG) 12.5 mg tablet Take 1 tablet by mouth two times a day. meclizine (ANTIVERT) 12.5 mg tab Take 1 tablet by mouth two times a day. multivit-min/iron/FA/vit K/lut (CENTRUM SILVER WOMEN ORAL) Take by mouth. vgdgpaq-jdzorzvbm-ruaqgaa D3 500 mg-5 mcg (200 unit) per tablet Take 1 tablet by mouth two times a day with meals. acetaminophen (TYLENOL) 500 mg tablet Take 1 tablet by mouth every 4 hours as needed for pain. No current facility-administered medications for this visit. Allergies: Penicillins, Lisinopril, Vioxx [Rofecoxib], and Zoloft [Sertraline] ROS: General (negative for fatigue, malaise, weight loss/gain) HEENT (negative for headache, earache, recent vision changes, sinus pain, sore throat) Respiratory (no recent shortness of breath, hemoptysis) CV (negative for chest tightness, palpitations) Musculoskeletal (see HPI) Psych (no depression, anxiety) REFERRING PHYSICIAN: Consultation requested by Dr. Urbina for an opinion regarding hip pain. My final recommendations will be communicated back to the requesting physician by way of shared Medical record or letter to requesting physician via US mail. Chencho Urbina [address] [facility] [id number] Jonny Suero MD documented in this encounter [facility] 03-16-2024 History of Present illness Narrative Radiology Service Progress Note PATIENT NAME: Leonor Pal DATE OF SERVICE: March 16, 2024 TIME: 10:44 AM PATIENT IDENTITY VERIFICATION COMPLETED USING TWO (2) IDENTIFIERS: Name and Date of confirmed by patient verbally. FALL SCREENING: Has the patient had 2 falls in the last year or 1 fall with injury or currently using an Ambulatory Assistive Device (Walker, Cane, Wheelchair, Crutches, etc.)? Yes, Patient High Risk for Falls What interventions were put in place to prevent falls during this visit? Increased Observations by Caregivers PATIENT GENDER DATA: Female. status: : No status: NO. PATIENT RELEVANT IMPLANT DATA REVIEWED: Not Applicable PATIENT PRESENTS WITH AN IMPLANTABLE OR ATTACHED ENGINEERING DESIGN SUPERVISOR: No RADIOLOGY DEPARTMENT: General X-ray: Exam(s) Completed: Pelvis X-Ray: Pelvis inlet/outlet PERIPHERAL IV DATA: Not applicable SIGNED BY: RT Moriah(R) March 16, 2024 10:44 AM documented in this encounter [facility] 03-16-2024 Note [facility] 03-16-2024 Note [facility] 03-16-2024 History of Present illness Narrative Patient's home health 485 form / care plan for certification period 02/17/2024 to 04/16/2024 reviewed and signed. Relevant medical records were reviewed. Changes were communicated to home health agency documented in this encounter [facility] 03-11-2024 Telephone encounter Note Noted. [facility] 03-11-2024 Miscellaneous Notes Noted. Corina with PT [facility] calling with a plan of care for PT. Reevaluated and will continue with PT. Will see pt 2 times a week for week, then 1 time a week for 1 week Dx gait training and stair training using a single point cane. No call back needed. Yola Barbosa LPN documented in this encounter [facility] 03-11-2024 Note [facility] 03-11-2024 History of Present illness Narrative Transitional Care Management (TCM) Follow-Up Note PCP Update / Actionable Items Future Appts 03/16 Ortho WSTR 03/25 Famp WSTR N/A - No specialty updates needed Patient Source: [facility] ([facility]) Discharge Outreach Summary: Patient states is feeling much better, making process Pain denies, unless move certain way Cough resolved Denies sob, wheezing, fever/chills, n/v Appetite good eating and hydrating, cooking her own meals Voiding and bm without difficulty, BM 102/24 Ambulating up ad umang, started using a cane Tired had a big day,taking a snooze with her cat in her lap Asim le edema denies Denies questions, concerns regarding medications, self care , no issues, stable Patient discharged from [facility] Discharge date: 02/16/24 Admitted for: Fall, Closed pelvic fracture, Hyponatremia Readmission Risk: n/a Value-Based Contract: ACO Contact: Contact made with patient: Yes Spoke to: Patient Validation: Validated the person spoken to is actively involved in the patient's care. The patient was identified by Name and Date of . I'd like to get an update on how you're doing since our last phone call. Is now a good time to talk? Yes Symptoms: Are you feeling about the same, better or worse since leaving the hospital? Better Weekly Outreach: 2nd Outreach Medications: Do you have any questions about taking your medications, including which medications you should be on, or do you need refills on your medications? No Patient Questions / Concerns: Do you have any questions related to your discharge? No Appointment / TCM Follow-Up: Have you had a follow-up visit with your Primary Care Provider or Specialist since you were discharged? Yes Do you need any assistance with scheduling or changing your follow-up appointments? Patient declines appointment SDOH: Has Food and Housing been addressed in Social Determinants in the past 3 months? Yes Education N/A Targets addressed / completed during outreach: Prevent readmission for 30 days Outreach Outcome: Continue TCM Outreach for remainder of 30 days Care Management partners utilized: N/A Kaity Quintero RN March 11, 2024 1:41 PM documented in this encounter [facility] 03-11-2024 Telephone encounter Note Corina with PT [facility] calling with a plan of care for PT. Reevaluated and will continue with PT. Will see pt 2 times a week for week, then 1 time a week for 1 week Dx gait training and stair training using a single point cane. No call back needed. Yola Barbosa LPN [facility] 03-06-2024 Telephone encounter Note Pt notified and verbalized understanding Celia Aleman MA [facility] 03-06-2024 Miscellaneous Notes Pt notified and verbalized understanding Celia Aleman MA Patient should decrease sodium tablets to daily and repeat bmp in 2 weeks. Pt called and is notified of providers results. Pt voices understanding. Pt asking if she still needs to be taking the sodium chloride tablets. Willa Yusuf, RN Please let patient know her sodium is back to normal. documented in this encounter [facility] 03-04-2024 Note [facility] 03-04-2024 History of Present illness Narrative Transitional Care Management (TCM) Follow-Up Note PCP Update / Actionable Items Day Future Appts 03/16 Ortho WSTR 03/25 Famp WSTR N/A - No specialty updates needed Patient Source: [id number] ([facility]ON) Discharge Outreach Summary: Patient states is feeling little better each day, stated Na was back to normal Pain broken pelvis maintaing with tylenol 5-610 moving around Cough resolved Denies sob, wheezing, fever/chills, n/v Appetite good eating and hydrating, Meals on wheel Voiding and bm without difficulty, BM 03/04/24 Ambulating up ad umang up with walker Fatigue denies Asim le edema denies Denies questions, concerns regarding medications, self care , no issues, stable Patient discharged from [facility] Discharge date: 02/16/24 Admitted for: Fall, Closed pelvic fracture, Hyponatremia Readmission Risk: n/a Value-Based Contract: ACO Contact: Contact made with patient: Yes Spoke to: Patient Validation: Validated the person spoken to is actively involved in the patient's care. The patient was identified by Name and Date of . I'd like to get an update on how you're doing since our last phone call. Is now a good time to talk? Yes Symptoms: Are you feeling about the same, better or worse since leaving the hospital? Better Weekly Outreach: 1st Outreach Medications: Do you have any questions about taking your medications, including which medications you should be on, or do you need refills on your medications? No Patient Questions / Concerns: Do you have any questions related to your discharge? No Appointment / TCM Follow-Up: Have you had a follow-up visit with your Primary Care Provider or Specialist since you were discharged? Yes Do you need any assistance with scheduling or changing your follow-up appointments? Patient declines appointment Education N/A Targets addressed / completed during outreach: Prevent readmission for 30 days Outreach Outcome: Continue TCM Outreach for remainder of 30 days Care Management partners utilized: N/A Kaity Quintero RN March 04, 2024 2:57 PM documented in this encounter [facility] 03-03-2024 Telephone encounter Note Patient should decrease sodium tablets to daily and repeat bmp in 2 weeks. [facility] 03-03-2024 Telephone encounter Note Pt called and is notified of providers results. Pt voices understanding. Pt asking if she still needs to be taking the sodium chloride tablets. Willa Yusuf RN [facility] 03-03-2024 Telephone encounter Note Please let patient know her sodium is back to normal. [facility] 02-26-2024 Note [facility] 02-26-2024 History of Present illness Narrative Chief Complaint Patient presents with: Follow Up HPI Leonor Pal is a 83 year old female who presents here today for 1 week follow up Patient is here today for a blood pressure visit. We had patient D/C the lisinopril - for her cough? Has cough improved? Yes and no longer having dizziness. Cough is almost gone. Maybe once or twice a day. BP's at home have run about 137/93 Saturday. Patient was also to schedule with Dr. Cotton. Has this appointment been made? Yes appointment for 04/09/2024 Has been taking the tylenol arthritis 650 mg 2 TID and this has helped. Patient with hx of carotid artery disease, elevated blood sugar, HTN, GERD, Iron def anemia, hyperlipidemia, CKD stage 3, chronic back pain, tinnitus as well as those as below. Office visit 02/20/2024 - hospital follow up TCM Eligibility Documentation Program: Transitional Care Management Status: Enrolled Effective Dates: 02/17/2024 - present Responsible Staff: Kaity Quintero RN Discharge date: 02/16/2024 (Program start) Date of initial contact: 02/17/2024 Initial contact Target status: Successful; Contact made within 2 business days post-discharge Provider Documentation Leoonr Pal is a 83 year old female here today for a follow up from recent hospitalization. I have reviewed the patient's hospital course including discharge summary, discharge medications , follow up needs, and X-ray with the patient and any family members present at today's visit. HPI Leonor Pal is a 83 year old female who presents here today for Hospital Discharge Follow up.. Patient was admitted to [facility] after a fall. She fell on her right side and pain in right elbow and right pelvic region. Hip and pelvis xray showed a nondisplaced fracture along the medial aspect of the right superior and inferior pubic ramus. Right elbow xray showed subcutaneous edema. Blood work also showed new onset of hyponatremia of 127. She was given IV fluids and noted to be on HCTZ. Repeat sodium was down to 125 the next morning. She was placed on fluid restriction, started on salt tablets. At discharge they d/c her celexa and HCTZ she was to continued sodium tablets twice daily and restrict fluid intake and follow up PCP and have BMP rechecked in 3-5 days. Patient had mentioned intermittent lightheadness/vertigo at home before coming to the hospital. At discharge patient was to continue Tylenol 1000 mg 3 times a day for 2 weeks and then as needed. Was given Oxycodone as needed (has not taken any) Sodium Chloride 1000 mg Tizanidine 2 mg Hx of incident: Patient was getting out of bed and went to get clothes off her rack and turned and fell to the floor. Several days prior to the fall she had been claiming sh was having dizziness. Patient is having home HHC for PHYSICAL THERAPY and OT once a week Daughter tried to contact renal but has not heard back from them. Patient was not referred to ortho. Pain is being controled with tylenol extra strength two TID. Patient was released to home on a Saturday and since then she is still getting some dizziness but not as often. Patient had discussed with provider at last appt about having a persistent cough and it was discussed to change her Lisinopril. Family decided to hold off since she was doing well on the current dose. However the cough persists and is an irritant. Past medical history, appointments, medications, allergies reviewed. Previous Medical History PAST MEDICAL HISTORY Diagnosis Date Advance directive discussed with patient 09/01/2021 Discussed 08/2021 Benign paroxysmal positional vertigo 01/14/2019 Carotid stenosis, asymptomatic, bilateral 07/21/2018 US 07/2018: less than 20% asim. Cholecystitis, unspecified Chronic right-sided low back pain Chronic right-sided thoracic back pain 07/17/2018 Colon Cancer(cecum) 09/29/[address] 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 Esparza Facial basal cell cancer 01/12/2019 Left nasal 12/[address] Esparza Family history of early CAD 01/14/2018 GERD without esophagitis HH (hiatus hernia) 09/29/2009 History of unsteady gait 03/22/2023 Hypomagnesemia 03/22/2023 Iron deficiency anemia, unspecified Living will on file 09/01/2021 DPA: Kervin () Living will on file at physician's office 09/01/2021 DPA: Kervin () Low blood magnesium 01/14/2019 Malignant neoplasm of colon (HCC) s/p right hemicolectomy (Dr. Alan Davila) Medicare annual wellness visit, subsequent 07/17/2018 Medicare Part B:11/08/2004 Last done: 07/17/2018 Mixed hyperlipidemia 01/03/2007 Nontoxic multinodular goiter 02/20/2023 Personal history of colon cancer 12/21/2013 s/p right hemicolectomy Primary hyperparathyroidism (HCC) 04/10/2023 Seeing Endo- Dr. Libertad Mckeon RBBB 03/22/2023 Sciatica 06/28/2011 Seasonal allergic rhinitis Second hand smoke exposure 01/14/2018 Sensory hearing loss, bilateral 01/21/2018 Situational depression 09/20/2022 Squamous cell skin cancer 09/21/2021 Neck: removed 09/2021 Stage 3a chronic kidney disease (HCC) 01/14/2018 Thyroid nodule 09/30/2022 Tinnitus of left ear 01/21/[address] Carrero Previous Surgical History PAST SURGICAL HISTORY Procedure Laterality Date 2D ECHO (EXEP) 05/01/2017 65%, with mild diast dysf and 1+ AL. CARDIAC STRESS TEST 05/01/2017 negative CHOLECYSTECTOMY 1985 Cholecystectomy COLONOSCOPY 07/13/2016 Repeat 07/2021 COLONOSCOPY FLX DX W/COLLJ SPEC WHEN PFRMD 12/22/2010 repeat in -2013 COLONOSCOPY FLX DX W/COLLJ SPEC WHEN PFRMD 01/08/2014 per repeat in 3-5 years COLONOSCOPY W/BIOPSY SINGLE/MULTIPLE 09/29/2009 Cecal carcinoma EGD TRANSORAL BIOPSY SINGLE/MULTIPLE 09/29/2009 Small HH HEART CATHETERIZATION 07/30/2018 normal coronaries PAST SURGICAL HISTORY OF 10/2009 Rt hemicolectomy Family History FAMILY HISTORY Problem Relation Age of Onset Cancer Sister Metastatic cancer (lung and brain; ?primary); 2007 Patient Allergies ALLERGIES Allergen Reactions Penicillins Swelling, Myalgia Tolerated cephalexin 10/2022 Vioxx [Rofecoxib] Unknown Zoloft [Sertraline] GI Upset Patient thought it made her feel sick, however she stated she was taking the new med 3 times a day and didn't start the other medication. (Zoloft and ativan were prescribed at same time). So we question if she was taking the correct medication or taking it as prescribed. Current Medications Current Outpatient Medications on File Prior to Visit Medication Sig oxyCODONE IR (ROXICODONE) 5 mg immediate release tablet Take 5 mg by mouth every 6 hours as needed. for pain for 5 days sodium chloride soluble tablet 1 g Take 1 g by mouth two times a day. tiZANidine (ZANAFLEX) 2 mg tablet Take 2 mg by mouth every 8 hours as needed. Magnesium Oxide 250 mg magnesium tab Take 1 in morning aspirin, enteric coated (ASPIRIN, ENTERIC COATED) 81 mg EC tablet Take 1 tablet by mouth once daily. omeprazole (PRILOSEC) 20 mg capsule Take 2 capsules by mouth once daily. Take 30 minutes before breakfast. carvedilol (COREG) 12.5 mg tablet Take 1 tablet by mouth two times a day. meclizine (ANTIVERT) 12.5 mg tab Take 1 tablet by mouth two times a day. multivit-min/iron/FA/vit K/lut (CENTRUM SILVER WOMEN ORAL) Take by mouth. cfsealz-ovzieswjb-kfmrcmb D3 500 mg-5 mcg (200 unit) per tablet Take 1 tablet by mouth two times a day with meals. acetaminophen (TYLENOL) 500 mg tablet Take 1 tablet by mouth every 4 hours as needed for pain. No current facility-administered medications on file prior to visit. Social History Social History Tobacco Use Smoking status: Never Smokeless tobacco: Never Vaping Use Vaping status: Never Used Substance Use Topics Alcohol use: No Drug use: No Review of Symptoms REVIEW OF SYSTEMS RESPIRATORY: Negative for wheezing, COPD, dyspnea or shortness of breath. See HPI CARDIOVASCULAR: Negative for chest pain, leg swelling, hypertension, CHF or palpitations EXAM: BP 126/70 (BP Site: Left Arm, BP Position: Sitting, BP Cuff Size: Regular Adult) Pulse 76 Resp 16 Wt 67.1 kg (148 lb) BMI 25.58 kg/m General Appearance: Well appearing, alert, in no acute distress, well-hydrated, well nourished.. Lungs: Lungs clear to auscultation. No wheezing, rhonchi, rales.. Heart: RRR without murmur, gallop, or rubs. No ectopy. Health Maintenance List Anxiety Screening Never done DTaP,Tdap,Td Vaccine(1 - Tdap) Never done Shingrix Vaccine(1 of 2) Never done RSV Vaccine(1 - 1-dose 60+ series) Never done Covid-19 Vaccine( season) due on 02/09/2024 Influenza Vaccine(1) due on 02/09/2024 Bone Density Screening due on 03/18/2025 Diabetes Screening due on 02/19/2027 Advance Directive Discussion Completed Pneumococcal Vaccine: 65+ Completed HPV Vaccine Aged Out Data reviewed A/P ASSESSMENT/PLAN: 1. Essential hypertension - ICD9: 401.9, ICD10: I10 (primary diagnosis) - Controlled. No longer too low since stopping the lisinopril and not getting dizzy any longer. - Continue current medications - Recommend home blood pressure monitoring, to bring results to next visit - Encouraged sodium restriction, DASH or Mediterranean diet - Recommend regular aerobic exercise - BASIC METABOLIC PANEL 2. Cough, unspecified type - ICD9: 786.2, ICD10: R05.9 - resolved with stopping the lisinopril 3. Hyponatremia - ICD9: 276.1, ICD10: E87.1 In the next week re-check BASIC METABOLIC PANEL to see if sodium continues to improve. 4. Need for vaccination - ICD9: V05.9, ICD10: Z23 - PFIZER-BIONTECH COVID-19 VACCINE AGE 12+ YR: given Chencho Urbina MD documented in this encounter [facility] 02-24-2024 Telephone encounter Note Patient was made aware of the results. Patient verbalizes understanding. Migdalia Chacko Ma [facility] 02-24-2024 Miscellaneous Notes Patient was made aware of the results. Patient verbalizes understanding. Migdalia Chacko Ma Let patient know her sodium is improving. Will most likely repeat after she sees me this week. documented in this encounter [facility] 02-23-2024 Telephone encounter Note Let patient know her sodium is improving. Will most likely repeat after she sees me this week. [facility] 02-20-2024 Telephone encounter Note Copy of med list faxed to [facility] as requested. Venita Green LPN [facility] 02-20-2024 Miscellaneous Notes Copy of med list faxed to [facility] as requested. Venita Green LPN Aspirin has been placed on med list. Please copy of med list. [facility] called in and reports Pt states she saw Dr Urbina today and he had changed her medications. I let her know the Magnesium Oxide 250 mg tablet he changed to her just taking one daily. Per Dr Urbina's notes, will stop the lisinopril. This may also stop the cough. , but he didn't remove it from her medication list. She also reports the Pt states that she was placed on the baby Asprin 81 mg during a VV by a Dr Mckeon who sees her for her Thyroid. She was asking if the provider could add this to the Pts medication list so she can continue taking it. Once medication list is update could you please fax to her ar fax # [phone]. documented in this encounter [facility] 02-20-2024 Telephone encounter Note Aspirin has been placed on med list. Please copy of med list. [facility] 02-20-2024 Telephone encounter Note [facility] called in and reports Pt states she saw Dr Urbina today and he had changed her medications. I let her know the Magnesium Oxide 250 mg tablet he changed to her just taking one daily. Per Dr Urbina's notes, will stop the lisinopril. This may also stop the cough. , but he didn't remove it from her medication list. She also reports the Pt states that she was placed on the baby Asprin 81 mg during a VV by a Dr Mckeon who sees her for her Thyroid. She was asking if the provider could add this to the Pts medication list so she can continue taking it. Once medication list is update could you please fax to her ar fax # [phone]. [facility] 02-20-2024 History of Present illness Narrative Transitional Care Management TCM Eligibility Documentation Program: Transitional Care Management Status: Enrolled Effective Dates: 02/17/2024 - present Responsible Staff: Kaity Quintero RN Discharge date: 02/16/2024 (Program start) Date of initial contact: 02/17/2024 Initial contact Target status: Successful; Contact made within 2 business days post-discharge Provider Documentation Leonor Pla is a 83 year old female here today for a follow up from recent hospitalization. I have reviewed the patient's hospital course including discharge summary, discharge medications , follow up needs, and X-ray with the patient and any family members present at today's visit. HPI Leonor Pal is a 83 year old female who presents here today for Hospital Discharge Follow up.. Patient was admitted to [facility] after a fall. She fell on her right side and pain in right elbow and right pelvic region. Hip and pelvis xray showed a nondisplaced fracture along the medial aspect of the right superior and inferior pubic ramus. Right elbow xray showed subcutaneous edema. Blood work also showed new onset of hyponatremia of 127. She was given IV fluids and noted to be on HCTZ. Repeat sodium was down to 125 the next morning. She was placed on fluid restriction, started on salt tablets. At discharge they d/c her celexa and HCTZ she was to continued sodium tablets twice daily and restrict fluid intake and follow up PCP and have BMP rechecked in 3-5 days. Patient had mentioned intermittent lightheadness/vertigo at home before coming to the hospital. At discharge patient was to continue Tylenol 1000 mg 3 times a day for 2 weeks and then as needed. Was given Oxycodone as needed (has not taken any) Sodium Chloride 1000 mg Tizanidine 2 mg Hx of incident: Patient was getting out of bed and went to get clothes off her rack and turned and fell to the floor. Several days prior to the fall she had been claiming sh was having dizziness. Patient is having home HHC for PHYSICAL THERAPY and OT once a week Daughter tried to contact renal but has not heard back from them. Patient was not referred to ortho. Pain is being controled with tylenol extra strength two TID. Patient was released to home on a Saturday and since then she is still getting some dizziness but not as often. Patient had discussed with provider at last appt about having a persistent cough and it was discussed to change her Lisinopril. Family decided to hold off since she was doing well on the current dose. However the cough persists and is an irritant. Past medical history, appointments, medications, allergies reviewed. Previous Medical History PAST MEDICAL HISTORY 09/01/2021: Advance directive discussed with patient Comment: Discussed 08/202101/14/2019: Benign paroxysmal positional vertigo 07/21/2018: Carotid stenosis, asymptomatic, bilateral Comment: US 07/2018: less than 20% asim. No date: Cholecystitis, unspecified No date: Chronic right-sided low back pain 07/17/2018: Chronic right-sided thoracic back pain 09/29/2009: Colon Cancer(cecum) Comment: Has seen Dr. Davila No date: Disorder of bone and cartilage, unspecified No date: Diverticulitis of colon (without mention of hemorrhage)(562. 11) 07/05/2006: Elevated fasting blood sugar No date: Essential hypertension Comment: white coat HTN 01/12/2019: Facial basal cell cancer Comment: Left nasal 12/[address] Esparza 01/12/2019: Facial basal cell cancer Comment: Left nasal 12/[address] Esparza 01/14/2018: Family history of early CAD No date: GERD without esophagitis 09/29/2009: HH (hiatus hernia) 03/22/2023: History of unsteady gait 03/22/2023: Hypomagnesemia No date: Iron deficiency anemia, unspecified 09/01/2021: Living will on file Comment: DPA: Kervin () 09/01/2021: Living will on file at physician's office Comment: DPA: Kervin () 01/14/2019: Low blood magnesium No date: Malignant neoplasm of colon (HCC) Comment: s/p right hemicolectomy (Dr. Alan Davila) 07/17/2018: Medicare annual wellness visit, subsequent Comment: Medicare Part B:11/08/2004 Last done: 07/17/2018 01/03/2007: Mixed hyperlipidemia 02/20/2023: Nontoxic multinodular goiter 12/21/2013: Personal history of colon cancer Comment: s/p right hemicolectomy 03/22/2023: RBBB 06/28/2011: Sciatica No date: Seasonal allergic rhinitis 01/14/2018: Second hand smoke exposure 01/21/2018: Sensory hearing loss, bilateral 09/20/2022: Situational depression 09/21/2021: Squamous cell skin cancer Comment: Neck: removed 09/202101/14/2018: Stage 3a chronic kidney disease (HCC) 09/30/2022: Thyroid nodule 01/21/2018: Tinnitus of left ear Comment: Seen Dr. Carrero Previous Surgical History PAST SURGICAL HISTORY 05/01/2017: 2D ECHO (EXEP) Comment: 65%, with mild diast dysf and 1+ AL. 05/01/2017: CARDIAC STRESS TEST Comment: negative 1985: CHOLECYSTECTOMY Comment: Cholecystectomy 07/13/2016: COLONOSCOPY Comment: Repeat 07/202112/22/2010: COLONOSCOPY FLX DX W/COLLJ SPEC WHEN PFRMD Comment: repeat in 01/08/2014: COLONOSCOPY FLX DX W/COLLJ SPEC WHEN PFRMD Comment: per [facility] repeat in 3-5 years 09/29/2009: COLONOSCOPY W/BIOPSY SINGLE/MULTIPLE Comment: Cecal carcinoma 09/29/2009: EGD TRANSORAL BIOPSY SINGLE/MULTIPLE Comment: Small HH 07/30/2018: HEART CATHETERIZATION Comment: normal coronaries 10/2009: PAST SURGICAL HISTORY OF Comment: Rt hemicolectomy Family History FAMILY HISTORY Problem Relation Age of Onset Cancer Sister Metastatic cancer (lung and brain; ?primary); 2007 Patient Allergies ALLERGIES Allergen Reactions Penicillins Swelling, Myalgia Tolerated cephalexin 10/2022 Vioxx [Rofecoxib] Unknown Zoloft [Sertraline] GI Upset Patient thought it made her feel sick, however she stated she was taking the new med 3 times a day and didn't start the other medication. (Zoloft and ativan were prescribed at same time). So we question if she was taking the correct medication or taking it as prescribed. Current Medications Current Outpatient Medications on File Prior to Visit Medication Sig omeprazole (PRILOSEC) 20 mg capsule Take 2 capsules by mouth once daily. Take 30 minutes before breakfast. carvedilol (COREG) 12.5 mg tablet Take 1 tablet by mouth two times a day. citalopram (CELEXA) 20 mg tablet Take 1 tablet by mouth once daily. lisinopril (ZESTRIL) 20 mg tablet Take 1 tablet by mouth once daily. hydroCHLOROthiazide 25 mg tablet Take 1 tablet by mouth once daily. meclizine (ANTIVERT) 12.5 mg tab Take 1 tablet by mouth two times a day. multivit-min/iron/FA/vit K/lut (CENTRUM SILVER WOMEN ORAL) Take by mouth. Magnesium Oxide 250 mg magnesium tab Take 1 in morning and 2 at night. nfyhdbs-jypfaumab-snstecx D3 500 mg-5 mcg (200 unit) per tablet Take 1 tablet by mouth two times a day with meals. acetaminophen (TYLENOL) 500 mg tablet Take 1 tablet by mouth every 4 hours as needed for pain. No current facility-administered medications on file prior to visit. Social History Social History Tobacco Use Smoking status: Never Smokeless tobacco: Never Vaping Use Vaping status: Never Used Substance Use Topics Alcohol use: No Drug use: No Review of Symptoms REVIEW OF SYSTEMS See HPI EXAM: BP (!) 80/40 Pulse 77 Resp 16 SpO2 99% BP (!) 76/48 Pulse 77 Resp 16 SpO2 99% General Appearance: Well appearing, alert, in no acute distress, well-hydrated, well nourished.. Lungs: Lungs clear to auscultation. No wheezing, rhonchi, rales.. Heart: RRR without murmur, gallop, or rubs. No ectopy. Abdomen: Normal abdominal exam, Abdomen soft, non-tender. Bowel sounds normal. No masses, organomegaly. Extremities: No deformities, edema, skin discoloration, . Good capillary refill. . Peripheral Pulses: Normal. Health Maintenance List Anxiety Screening Never done DTaP,Tdap,Td Vaccine(1 - Tdap) Never done Shingrix Vaccine(1 of 2) Never done RSV Vaccine(1 - 1-dose 60+ series) Never done Covid-19 Vaccine(2022- season) due on 02/09/2024 Influenza Vaccine(1) due on 02/09/2024 Bone Density Screening due on 03/18/2025 Diabetes Screening due on 11/14/2026 Advance Directive Discussion Completed Pneumococcal Vaccine: 65+ Completed HPV Vaccine Aged Out Data reviewed A/P ASSESSMENT/PLAN: 1. Hyponatremia - ICD9: 276.1, ICD10: E87.1 (primary diagnosis) Check - BASIC METABOLIC PANEL - CONSULT TO NEPHROLOGY: Dr. Ashley 2. 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 This may also stop the cough. 3. Multiple closed fractures of pelvis without disruption of pelvic ring, initial encounter ([facility]) - ICD9: 808.44, ICD10: S32.82XA - cont PHYSICAL THERAPY and OT - CONSULT TO ORTHOPAEDICS F/u in a week for blood pressure visit. I spent a total of 44 minutes on the date of the service which included preparing to see the patient, [id number]-[id number] patient care, completing clinical documentation, performing a medically appropriate examination, counseling and educating the patient/family/caregiver and ordering medications, tests, or procedures. Chencho Urbina MD documented in this encounter [facility] 02-20-2024 Note [facility] 02-19-2024 Telephone encounter Note Patient is scheduled tomorrow for hospital follow up. Lana Schwartz MA [facility] 02-19-2024 Miscellaneous Notes Patient is scheduled tomorrow for hospital follow up. Lana Schwartz MA [facility] called and is notified of providers message and instructions. She voices understanding. She states the Asprin is a (baby) so 81 mg daily. She will find out why she is taking it, and asking about the Rofecoxib allergy and call back. Once we have the reason for the Asprin we can update the medication list. Willa Yusuf, RN Advise Nurse I don't have the patient on Aspirin. She has never told us she was taking it. Can she find out from the patient if she is taking it and if so how long she has been taking aspirin and at what strength. Also per I records patient has no idea what her issue was with Rofecoxib. Mera, a nurse with [facility], calls to report a medication issue that come up. Mera reports on pt's allergy list is Rofecoxib. Mera reports pt is taking a baby aspirin daily and that came up as an issue if pt is allergic to Rofecoxib. Advised Mera pt's chart does not show she is on baby aspirin daily. Mera reports it is on the hospital discharge summary. Please review and advise. Amy Evans LPN documented in this encounter [facility] 02-19-2024 Telephone encounter Note Yes. [facility] 02-19-2024 Miscellaneous Notes Yes. Carrie calling from [facility] asking if you will continue to following for: Orders are : OT once weekly for 3 weeks for fall prevention and laundry. She stated that if approved no call back needed Please advise. Irish Lomeli LPN documented in this encounter [facility] 02-19-2024 Telephone encounter Note Carrie calling from [facility] asking if you will continue to following for: Orders are : OT once weekly for 3 weeks for fall prevention and laundry. She stated that if approved no call back needed Please advise. Irish Lomeli LPN [facility] 02-18-2024 Telephone encounter Note [facility] called and is notified of providers message and instructions. She voices understanding. She states the Asprin is a (baby) so 81 mg daily. She will find out why she is taking it, and asking about the Rofecoxib allergy and call back. Once we have the reason for the Asprin we can update the medication list. Willa Yusuf RN [facility] 02-18-2024 Telephone encounter Note Advise Nurse I don't have the patient on Aspirin. She has never told us she was taking it. Can she find out from the patient if she is taking it and if so how long she has been taking aspirin and at what strength. Also per I records patient has no idea what her issue was with Rofecoxib. [facility] 02-18-2024 Telephone encounter Note Mera, a nurse with [facility], calls to report a medication issue that come up. Mera reports on pt's allergy list is Rofecoxib. Mera reports pt is taking a baby aspirin daily and that came up as an issue if pt is allergic to Rofecoxib. Advised Mera pt's chart does not show she is on baby aspirin daily. Mera reports it is on the hospital discharge summary. Please review and advise. Amy Evans LPN [facility] 02-17-2024 Note [facility] 02-17-2024 History of Present illness Narrative Transition Care Management (TCM) Initial Outreach PCP Update / Actionable Items Eligible for tcm through 03/01/24 Future Appts 02/19 [facility] 03/25 [facility] HRTIC TCM Home Visit Referral Source of Stratification: [facility] Hospital Admission Status: Discharged Readmission Risk Score: n/a Patient's zip code: [address] Is zip code within program service area: No Patient meets program referral criteria: No Patient does not qualify for High Risk TCM Home Visit program due to: Patient's zip code is not located within program service area Disposition: Patient does not qualify for HRTIC, will provide TCM outreach follow-up for 30-days Patient Source: [id number] (OON) Discharge Outreach Summary: Patient states is feeling same Pain broken pelvis maintaing with tylenol 5/10 moving around Cough not new Denies sob, wheezing, fever/chills, n/v Appetite good eating and hydrating, limiting fluid intake from low na Voiding and bm without difficulty, BM 02/17/24 Ambulating up ad umang up with walker Fatigue, yes feeling tired Asim le edema denies Denies questions, concerns regarding medications, self care , no issues, stable Patient discharged from [facility] Discharge date: 02/16/24 Admitted for: Fall, Closed pelvic fracture, Hyponatremia: Readmission Risk: n/a Value-Based Contract: ACO Contact: Contact made with patient: Yes Hi, my name is Kaity Quintero RN and I am calling from the [facility] on behalf of your Primary Care Provider, Chencho Urbina MD. I understand you were recently in the hospital, so I am calling to check in with you to ensure you are feeling well now that you are home. May I ask you a few questions related to your hospital stay and well-being? Yes Spoke to: DaughterAlba Validation: Validated the person spoken to is actively involved in the patient's care. The patient was identified by Name and Date of . Symptoms: Are you feeling about the same, better or worse since leaving the hospital? Same Medications: Do you have any questions about taking your medications, including which medications you should be on, or do you need refills on your medications? No Medication Review: Declined at this time per patient preference Discharge Instructions: Your Discharge Instructions / After Visit Summary (AVS) are important in guiding you through the recovery process. Do you have any questions related to your discharge instructions? No Home Care: Were you discharged with home care? Yes Has your Home Care Agency contacted you? Yes Name of Home Care Agency: [facility] Phone number, if available: n/a Start of Home Care services date: 02/17/24 Home care services included: Physical / Occupational Therapy Equipment: Do you have all the necessary equipment and supplies needed at your home? Yes The patient verbalizes understanding the use of the equipment and supplies Social: We would like to make sure you have what you need so that your basics needs are met - including your personal safety, food, housing and medications. Would you like to speak with a social work user experience team lead to help give you support for any of these needs? No It can be normal to feel anxious or down during a time like this. Would you like to talk to a mental health professional about how you have been feeling? No Action Taken: No needs verbalized. No action required. Follow-Up Appointment: [Appointment / TCM Follow-up within 14 days] I would like to help you schedule a hospital follow-up virtual or telephone visit with your PCP. This is a great way for you to connect with your provider to ensure you have safely transitioned home. If you are agreeable, I will send your request to a clinic scheduler who will contact and assist you with that appointment. This will give you an opportunity to ask any questions or address any concerns you may have with your PCP. Inform the patient that if they have any questions or concerns prior to that appointment, to call their PCP's office right away. Appointment Action: No action required; patient already has appointment scheduled. Education N/A Targets addressed / completed during outreach: Contact patient within two (2) business days Outreach Outcome: Enrolled in TCM Care Management partners utilized: N/A Kaity Quintero RN February 17, 2024 4:13 PM documented in this encounter [facility] 02-17-2024 Telephone encounter Note [facility]- calling in PT POC: will see patient 2 x's week for 1 week, then 1 x week for 3 weeks, for pain management, strengthening, and fall prevention. Does not need a call back. [facility] 02-17-2024 Miscellaneous Notes [facility]- calling in PT POC: will see patient 2 x's week for 1 week, then 1 x week for 3 weeks, for pain management, strengthening, and fall prevention. Does not need a call back. documented in this encounter [facility] 02-17-2024 Note [facility] 02-17-2024 History of Present illness Narrative Scan on 02/16/2024 12:59 PM by Provider, External, [facility]: Consultation - Emergency Medicine Patient is scheduled for hospital follow up. 02/20/2024 Lana Schwartz MA documented in this encounter [facility] 02-16-2024 Note [facility] Records Department [address] [place] [address] Discharge Summary 02/16/24 1235 MR#: [id number] Acct: [id number] Name: LEONOR PAL Rep #: [id number] : 1940 83 From: Ayaka [place] DO PCP: Dr. Chencho Urbina MD Status:ADM IN Location: [facility] [id number] Providers Date of Admission: 02/13/24 Date of Discharge: 02/16/24 Primary Care Physician: Dr. Chencho Urbina MD Reason For Visit: PELVIC FRACTURE WITH ABILILTY TO WALK/HYPONATEMIA Diagnosis Discharge Diagnosis (1) Hyponatremia: Status: Acute Code(s): E87.1 - Hypo-osmolality and hyponatremia (2) Closed pelvic fracture: Status: Acute Code(s): S32.9XXA - Fracture of unspecified parts of lumbosacral spine and pelvis, initial encounter for closed fracture (3) Anemia: Status: Acute Code(s): D64.9 - Anemia, unspecified (4) Leukocytosis: Status: Acute Code(s): D72.829 - Elevated white blood cell count, unspecified Medications at Discharge Home Medications lisinopril 20 mg tablet 20 mg PO DAILY blood pressure #90 tabs 04/09/19 meclizine 12.5 mg tablet 12.5 mg PO BID-TID vertigo 04/09/19 kruvlany-wszl-lrun 8 mg-folic 400 mcg-K 50 mcg-lutein 300 mcg tablet (Centrum Silver Women) 1 tab PO DAILY supplement 04/09/19 carvedilol 12.5 mg tablet 25 mg PO DAILY heart 06/30/21 aspirin 81 mg chewable tablet (Aspirin Childrens) 1 tab PO DAILY heart health 02/13/24 omeprazole 40 mg capsule,delayed release 40 mg PO DAILY gerd 02/13/24 acetaminophen 500 mg tablet 1,000 mg (2 x 500 mg) PO Q8 #0 tabs 02/16/24 oxycodone 5 mg tablet 5 mg PO Q6H PRN pain 5 days #20 tabs 02/16/24 sodium chloride 1,000 mg soluble tablet 1,000 mg PO BID #60 tabs 02/16/24 tizanidine 2 mg tablet 2 mg PO Q8 #21 tabs 02/16/24 Hospital Course Operations None Procedures - (Elbow x-ray/hip and pelvis x-ray) Summary of Care Provided Minutes Spent on Discharge: 37 Hospital Course: LEONOR PAL, is a 83 F who presented to the emergency department at [facility] on 02/13/2024 after sustaining a mechanical fall at home that resulted in pain with ambulation. Patient was not using her walker or an assistive device at the time of her fall. She stated she just lost her balance and fell over. She fell onto her right side and had pain in her right elbow and right pelvic region. She was able to get up independently utilizing a walker but had trouble ambulating so was brought to the emergency department. Vital signs on presentation showed a temperature of 98.4, heart rate 76, blood pressure 129/78, respiratory 16 oxygen saturation was 99% on room air. Her CBC showed a leukocytosis with a white count of 11.6, anemia with a hemoglobin of 11.8 and a left shift was present at 79.2. Her chemistry panel showed hyponatremia with a sodium of 127 (baseline previously has been in the 130s to 140s), serum creatinine was elevated 1.39 which is within her baseline. Hip and pelvic x-ray showed a nondisplaced fracture along the medial aspect of the right superior and inferior pubic ramus. Right elbow fractures showed subcutaneous edema but no bony abnormality. Given her inability to ambulate independently and ongoing pain as well as the findings of new hyponatremia she was felt she required admission to the hospital for ongoing services. She was admitted to the medical floor. She was given 1 L of IV fluids in the emergency department and was noted to be on HCTZ. This was held due to her hyponatremia on admission and repeat sodium was obtained the next morning which went down to 125. She was placed on fluid restriction, started on salt tablets, and her Celexa was discontinued as her urine studies were consistent with euvolemic hyponatremia but not entirely consistent with SIADH. It was felt that it was either SIADH or medication related. With this treatment her sodium did start to improve with the faith being 123 and her discharge sodium being 125. Her hyponatremia was fairly asymptomatic throughout her hospitalization. At discharge we discontinued her Celexa and HCTZ, continued the sodium tablets twice daily and asked her to restrict her fluid to 1500 cc daily. She has to obtain a follow-up basic metabolic profile within the next 3 to 5 days to recheck her sodium level but we did feel comfortable sending her home as she was trending up at this time and persisted to be asymptomatic. The patient did complain of having intermittent lightheadedness/vertigo at home this sounded very positional and despite us discontinuing her HCTZ with no additional medications her blood pressures were found to be well-controlled just on the carvedilol and lisinopril. No new medications were added with regards to her blood pressure at the time of discharge and I do suspect may be some of her dizziness may be related to orthostatic hypotension. She is to monitor for ongoing symptoms after discon (more content not included)... [facility] 02-14-2024 Telephone encounter Note Left detailed message with Dr. Urbina's instructions. Lana Schwartz MA [facility] 02-14-2024 Miscellaneous Notes Left detailed message with Dr. Urbina's instructions. Lana Schwartz MA If they are asking if I will follow for home health care orders, then yes. Patient needs to have f/u with ortho though. Please see hospital scanned documents. Patient had a fall and nondisplaced along right medial aspect of superior and inferior public rami Lana Schwartz MA Corina from [facility] calling asking if doctor will follow for pt to have PT and OT starting Saturday. Please advise. documented in this encounter [facility] 02-14-2024 Telephone encounter Note If they are asking if I will follow for home health care orders, then yes. Patient needs to have f/u with ortho though. [facility] 02-14-2024 Telephone encounter Note Please see hospital scanned documents. Patient had a fall and nondisplaced along right medial aspect of superior and inferior public rami Lana Schwartz MA [facility] 02-14-2024 Telephone encounter Note Corina from [facility] calling asking if doctor will follow for pt to have PT and OT starting Saturday. Please advise. [facility] 02-14-2024 Note [facility] 02-14-2024 History of Present illness Narrative Scan on 02/13/2024 6:00 PM by ProviderTao PA-C: Consultation - Emergency Medicine Scan on 02/13/2024 6:08 PM by Tao Lyons PA-C: Consultation - Emergency Medicine Lana Schwartz MA documented in this encounter [facility] 01-14-2024 Telephone encounter Note Prescription Refill Information The patient has been identified by name and date of : Yes Caregiver verified no other encounters exist for this prescription request: Yes Caregiver confirmed with patient/requestor that no other refills are due, in the near future, with this provider at this time: Yes The last office visit in the department: 09-24-23 Does the patient have a future office visit with this provider/department: Yes Requested Prescriptions Pending Prescriptions Disp Refills omeprazole (PRILOSEC) 20 mg capsule 180 capsule 1 Sig: Take 2 capsules by mouth once daily. Take 30 minutes before breakfast. 40mg once a day? Alba Baptiste January 14, 2024 9:11 AM [facility] Work Phone: 01-14-2024 Miscellaneous Notes Prescription Refill Information The patient has been identified by name and date of : Yes Caregiver verified no other encounters exist for this prescription request: Yes Caregiver confirmed with patient/requestor that no other refills are due, in the near future, with this provider at this time: Yes The last office visit in the department: 09-24-23 Does the patient have a future office visit with this provider/department: Yes Requested Prescriptions Pending Prescriptions Disp Refills omeprazole (PRILOSEC) 20 mg capsule 180 capsule 1 Sig: Take 2 capsules by mouth once daily. Take 30 minutes before breakfast. 40mg once a day? Alba Baptiste January 14, 2024 9:11 AM documented in this encounter [facility] 01-06-2024 Telephone encounter Note Contacted patient and they do have refill and processing medication. Lana Schwartz MA [facility] 01-06-2024 Miscellaneous Notes Contacted patient and they do have refill and processing medication. Lana Schwartz MA Prescription Refill Information The patient has been identified by name and date of : Yes Caregiver verified no other encounters exist for this prescription request: Yes Caregiver confirmed with patient/requestor that no other refills are due, in the near future, with this provider at this time: Yes The last office visit in the department: 09-24-23 Does the patient have a future office visit with this provider/department: Yes Requested Prescriptions Pending Prescriptions Disp Refills omeprazole (PRILOSEC) 20 mg capsule 180 capsule 1 Sig: Take 2 capsules by mouth once daily. Take 30 minutes before breakfast. Alba Baptiste January 06, 2024 10:16 AM documented in this encounter [facility] 01-06-2024 Telephone encounter Note Prescription Refill Information The patient has been identified by name and date of : Yes Caregiver verified no other encounters exist for this prescription request: Yes Caregiver confirmed with patient/requestor that no other refills are due, in the near future, with this provider at this time: Yes The last office visit in the department: 09-24-23 Does the patient have a future office visit with this provider/department: Yes Requested Prescriptions Pending Prescriptions Disp Refills omeprazole (PRILOSEC) 20 mg capsule 180 capsule 1 Sig: Take 2 capsules by mouth once daily. Take 30 minutes before breakfast. Alba Baptiste January 06, 2024 10:16 AM [facility] Work Phone: 01-01-2024 Telephone encounter Note Mahi with [facility] calls to report patient is currently in office being seen by Dr. Esparza and is requesting to have labs from November 2023 faxed to them. Faxed to [phone] per request. Libia Genao, RN [facility] 01-01-2024 Miscellaneous Notes Mahi with [facility] calls to report patient is currently in office being seen by Dr. Esparza and is requesting to have labs from November 2023 faxed to them. Faxed to [phone] per request. Libia Genao RN documented in this encounter [facility] 11-28-2023 History of Present illness Narrative [facility] Established Visit Leonor Pal [facility]#: [id number] Date of Service: 11/28/2023 Primary Care Provider: Chencho Urbina MD FOLLOW UP VISIT Presenting history - from previous note Dr Keyes 11/13/22 Ms. Pal is an 82-year-old female, who presents for evaluation of an incidentally discovered brain aneurysm. The patient had screening carotid ultrasound, which raised suspicion of a thyroid cyst. Thyroid ultrasound was ordered, followed by CT of the neck to evaluate the thyroid. Incidentally, the neck CT also included images of the brain, which raised suspicion of an unruptured brain aneurysm. The patient otherwise reports occasional mild headaches. She reports no neurologic symptoms or deficits otherwise. There is no family history of brain aneurysm or hemorrhage. The patient does not smoke. Her blood pressure is controlled with medications. She presents today with her family to discuss available management options. Hypertension Y Coronary Artery Disease NA Diabetes NA Obesity NA Dyslipidemia NA Tobacco Use (Please Update Smoking History) NA Stroke NA Intracranial Aneurysm NA Interval history: - No change in neurological or systemic health - No change in headache severity, frequency or characteristics - No transient or persistent visual, language, speech, swallowing, motor, sensory, coordination, or gait deficits. - From neurovascular standpoint no significant changes in health Past Medical History: ACTIVE PROBLEM LIST Chronic Right-Sided Low Back Pain Disorder of bone and cartilage, unspecified Diverticulitis of colon (without mention of hemorrhage)(562.11) Seasonal Allergic Rhinitis Gerd Without Esophagitis Essential Hypertension Elevated Fasting Blood Sugar Mixed Hyperlipidemia Colon Cancer(cecum) Hh (Hiatus Hernia) Sciatica Malignant Neoplasm of Colon (Hcc) Personal History of Colon Cancer Iron Deficiency Anemia, Unspecified Encounter for Screening Mammogram for Breast Cancer Stage 3b Chronic Kidney Disease (Hcc) Second Hand Smoke Exposure Family History of Early Cad Sensory Hearing Loss, Bilateral Tinnitus of Left Ear Medicare Annual Wellness Visit, Subsequent Chronic Right-Sided Thoracic Back Pain Carotid Stenosis, Asymptomatic, Bilateral Facial Basal Cell Cancer Benign Paroxysmal Positional Vertigo Medication Management Living Will On File At Physician's Office Advance Directive Discussed With Patient Squamous Cell Skin Cancer Situational Depression Thyroid Nodule Neck Mass Nontoxic Multinodular Goiter Hyponatremia Nonruptured Cerebral Aneurysm Rbbb History of Unsteady Gait Hypomagnesemia Primary Hyperparathyroidism (Hcc) Age-Related Osteoporosis Without Current Pathological Fracture PAST SURGICAL HISTORY Procedure Laterality Date 2D ECHO (EXEP) 05/01/2017 65%, with mild diast dysf and 1+ AL. CARDIAC STRESS TEST 05/01/2017 negative CHOLECYSTECTOMY 1985 Cholecystectomy COLONOSCOPY 07/13/2016 Repeat 07/2021 COLONOSCOPY FLX DX W/COLLJ SPEC WHEN PFRMD 12/22/2010 repeat in COLONOSCOPY FLX DX W/COLLJ SPEC WHEN PFRMD 01/08/2014 per [facility] repeat in 3-5 years COLONOSCOPY W/BIOPSY SINGLE/MULTIPLE 09/29/2009 Cecal carcinoma EGD TRANSORAL BIOPSY SINGLE/MULTIPLE 09/29/2009 Small HH HEART CATHETERIZATION 07/30/2018 normal coronaries PAST SURGICAL HISTORY OF 10/2009 Rt hemicolectomy Allergies: Penicillins, Vioxx [Rofecoxib], and Zoloft [Sertraline] Medications: Current Outpatient Medications Medication Sig carvedilol (COREG) 12.5 mg tablet Take 1 tablet by mouth two times a day. citalopram (CELEXA) 20 mg tablet Take 1 tablet by mouth once daily. lisinopril (ZESTRIL) 20 mg tablet Take 1 tablet by mouth once daily. hydroCHLOROthiazide 25 mg tablet Take 1 tablet by mouth once daily. meclizine (ANTIVERT) 12.5 mg tab Take 1 tablet by mouth two times a day. multivit-min/iron/FA/vit K/lut (CENTRUM SILVER WOMEN ORAL) Take by mouth. Magnesium Oxide 250 mg magnesium tab Take 1 in morning and 2 at night. omeprazole (PRILOSEC) 20 mg capsule Take 2 capsules by mouth once daily. Take 30 minutes before breakfast. oqjemoh-claiucffr-yiddsvd D3 500 mg-5 mcg (200 unit) per tablet Take 1 tablet by mouth two times a day with meals. acetaminophen (TYLENOL) 500 mg tablet Take 1 tablet by mouth every 4 hours as needed for pain. No current facility-administered medications for this visit. Social History Tobacco Use Smoking status: Never Smokeless tobacco: Never Vaping Use Vaping Use: Never used Substance Use Topics Alcohol use: No Drug use: No Review of Systems ROS negative unless otherwise noted in HPI PHYSICAL EXAMINATION There were no vitals taken for this visit. - virtual General: The patient was well and in no acute distress. Neurological exam: - Awake, alert, aware of events. Oriented to date/ month/ year; self; place. Provided own history. - Language normal in fluency, conversational comprehension - Normal speech; no dysarthria. Normal facial symmetry. RESULTS IMAGING I have independently reviewed and interpreted the following imaging studies and laboratory test results. CTA head & neck (11/15/2023) Unchanged size of 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 Findings are compatible with sequelae of fibromuscular dysplasia and/or prior arterial injury. No evidence of flow limiting stenosis or occlusion involving the major arteries of the head and neck. Arterial blood flow was measured to detect acute large vessel occlusion by computer aided detection software: Not Performed Labs Glucose (mg/dL) Date Value 11/15/2023 104 04/10/2021 103 Potassium (mmol/L) Date Value 11/15/2023 3.7 04/10/2021 3.7 Sodium (mmol/L) Date Value 11/15/2023 131 04/10/2021 137 Chloride (mmol/L) Date Value 11/15/2023 98 04/10/2021 104 CO2 (mmol/L) Date Value 11/15/2023 22 04/10/2021 18 Creatinine (mg/dL) Date Value 11/15/2023 1.23 04/10/2021 1.45 BUN (mg/dL) Date Value 11/15/2023 16 04/10/2021 16 Anion Gap (mmol/L) Date Value 11/15/2023 11 04/10/2021 15 Calcium (mg/dL) Date Value 04/10/2021 9.8 Calcium, Total (mg/dL) Date Value 11/15/2023 9.1 IMPRESSION Right BETH distal A2 aneurysm Images reviewed with patient. We will continue to monitor with yearly CTA to allow for concomitant monitoring of cervical pseudoaneurysm. 2. 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 The cervical ICA sidewall pseudoaneruysm is associated with a low risk of growth and ruptured. We will continue to monitor with yearly CTA. Follow-up in clinic with [facility] after CTA. Recommend ASA 81 mg daily for small risk of stroke associated with turbulent flow due to aneurysm Revisited discussion about FMD with patient Recommend Vascular Medicine consultation; sent. SIGNATURE Kierra Alfaro MD Staff, [facility] Inter[facility] documented in this encounter [facility] 11-28-2023 Note HNO ID: [id number] Author: KIERRA ALFARO MD Service: ? Author Type: Physician Type: Progress Notes Filed: 12/24/2023 10:35 Note Text: [facility] Established VIRTUAL Visit I have communicated my name and active licensure. The patient's identity and physical location were verified at the time of this visit. Either the patient or their legal exhibit display representative has been informed of the risks and benefits of -- and alternatives to -- treatment through a remote evaluation and consents to proceed with the evaluation remotely. Patient consents to this virtual visit using MyChart Zoom Video Visit. The visit required patient-provider interaction for the medical decision making as documented below. Leonor Pal [facility]#: [id number] Date of Service: 11/28/2023 Primary Care Provider: Chencho Urbina MD FOLLOW UP VISIT Presenting history - from previous note Dr Keyes 11/13/22 Ms. Pal is an 82-year-old female, who presents for evaluation of an incidentally discovered brain aneurysm. The patient had screening carotid ultrasound, which raised suspicion of a thyroid cyst. Thyroid ultrasound was ordered, followed by CT of the neck to evaluate the thyroid. Incidentally, the neck CT also included images of the brain, which raised suspicion of an unruptured brain aneurysm. The patient otherwise reports occasional mild headaches. She reports no neurologic symptoms or deficits otherwise. There is no family history of brain aneurysm or hemorrhage. The patient does not smoke. Her blood pressure is controlled with medications. She presents today with her family to discuss available management options. Hypertension Y Coronary Artery Disease NA Diabetes NA Obesity NA Dyslipidemia NA Tobacco Use (Please Update Smoking History) NA Stroke NA Intracranial Aneurysm NA Interval history: - No change in neurological or systemic health - No change in headache severity, frequency or characteristics - No transient or persistent visual, language, speech, swallowing, motor, sensory, coordination, or gait deficits. - From neurovascular standpoint no significant changes in health Past Medical History: ACTIVE PROBLEM LIST Chronic Right-Sided Low Back Pain Disorder of bone and cartilage, unspecified Diverticulitis of colon (without mention of hemorrhage)(562.11) Seasonal Allergic Rhinitis Gerd Without Esophagitis Essential Hypertension Elevated Fasting Blood Sugar Mixed Hyperlipidemia Colon Cancer(cecum) Hh (Hiatus Hernia) Sciatica Malignant Neoplasm of Colon (Hcc) Personal History of Colon Cancer Iron Deficiency Anemia, Unspecified Encounter for Screening Mammogram for Breast Cancer Stage 3b Chronic Kidney Disease (Hcc) Second Hand Smoke Exposure Family History of Early Cad Sensory Hearing Loss, Bilateral Tinnitus of Left Ear Medicare Annual Wellness Visit, Subsequent Chronic Right-Sided Thoracic Back Pain Carotid Stenosis, Asymptomatic, Bilateral Facial Basal Cell Cancer Benign Paroxysmal Positional Vertigo Medication Management Living Will On File At Physician's Office Advance Directive Discussed With Patient Squamous Cell Skin Cancer Situational Depression Thyroid Nodule Neck Mass Nontoxic Multinodular Goiter Hyponatremia Nonruptured Cerebral Aneurysm Rbbb History of Unsteady Gait Hypomagnesemia Primary Hyperparathyroidism (Hcc) Age-Related Osteoporosis Without Current Pathological Fracture PAST SURGICAL HISTORY Procedure Laterality Date 2D ECHO (EXEP) 05/01/2017 65%, with mild diast dysf and 1+ AL. CARDIAC STRESS TEST 05/01/2017 negative CHOLECYSTECTOMY 1985 Cholecystectomy COLONOSCOPY 07/13/2016 Repeat 07/2021 COLONOSCOPY FLX DX W/COLLJ SPEC WHEN PFRMD 12/22/2010 repeat in COLONOSCOPY FLX DX W/COLLJ SPEC WHEN PFRMD 01/08/2014 per repeat in 3-5 years COLONOSCOPY W/BIOPSY SINGLE/MULTIPLE 09/29/2009 Cecal carcinoma EGD TRANSORAL BIOPSY SINGLE/MULTIPLE 09/29/2009 Small HH HEART CATHETERIZATION 07/30/2018 normal coronaries PAST SURGICAL HISTORY OF 10/2009 Rt hemicolectomy Allergies: Penicillins, Vioxx [Rofecoxib], and Zoloft [Sertraline] Medications: Current Outpatient Medications Medication Sig carvedilol (COREG) 12.5 mg tablet Take 1 tablet by mouth two times a day. citalopram (CELEXA) 20 mg tablet Take 1 tablet by mouth once daily. lisinopril (ZESTRIL) 20 mg tablet Take 1 tablet by mouth once daily. hydroCHLOROthiazide 25 mg tablet Take 1 tablet by mouth once daily. meclizine (ANTIVERT) 12.5 mg tab Take 1 tablet by mouth two times a day. multivit-min/iron/FA/vit K/lut (CENTRUM SILVER WOMEN ORAL) Take by mouth. Magnesium Oxide 250 mg magnesium tab Take 1 in morning and 2 at night. omeprazole (PRILOSEC) 20 mg capsule Take 2 capsules by mouth once daily. Take 30 minutes before breakfast. btbrixg-nytmpawnb-azvzqxb D3 500 mg-5 mcg (200 unit) per tablet Take 1 tablet by mouth two time (more content not included)... [facility] 11-26-2023 History of Present illness Narrative [facility] LAST SEEN 10-01-2023 RE:Post parathyroidectomy care - 2 gland R and L upper 03-25-2023 IF THIS IS A VIRTUAL VISIT: I have communicated my name and licensure. The patient's identity and location were verified. Either the patient or their legal exhibit display representative has been informed of the risks, benefits, and alternatives based on a remote evaluation, and consents to proceed remotely per [place] law. I will communicate my recommendations and findings via shared medical record and/or USPS CC: s/p [facility] HPI: Leonor Pal is a 83 year old female who initially presented 05-14-2023 in referral for my expert opinion regarding post parathyroidectomy care - no milk but drinks tea and water and coffee; has cheese -- some - no individual D supplement - using gummy vitafusion Ca - no cramping and no tingling - no swallowing issues -- FOLLOW UP VISIT 10-01-2023 VIRTUALLY: She got mixed up with the calcium tablets -- she is now taking the calcium as prescribed; FOLLOW UP VISIT 11-26-2023 VIRTUALLY: Presents in follow up. Labs as noted below -- all WNL. Calcium intake -- still taking bid supplement + Centrum Silver REVIEW OF SYSTEMS GENERAL: wt is rel stavle HEENT: vision is ok ENDO/NECK: Denies jaw pain, no difficulty swallowing; CARDIOVASCULAR: none GI: none : NEPHROLITHIASIS: none ENDO/MUSCULOSKELETAL/BONE: none FRACTURES: none SKIN: PSYCH: HEMATOLOGY/LYMPHOLOGY NEURO: MEDICAL HISTORY: PAST MEDICAL HISTORY Diagnosis Date Advance directive discussed with patient 09/01/2021 Discussed 08/2021 Benign paroxysmal positional vertigo 01/14/2019 Carotid stenosis, asymptomatic, bilateral 07/21/2018 07/2018: less than 20% asim. Cholecystitis, unspecified Chronic right-sided low back pain Chronic right-sided thoracic back pain 07/17/2018 Colon Cancer(cecum) 09/29/[address] 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 Esparza Facial basal cell cancer 01/12/2019 Left nasal 12/[address] Esparza Family history of early CAD 01/14/2018 GERD without esophagitis HH (hiatus hernia) 09/29/2009 History of unsteady gait 03/22/2023 Hypomagnesemia 03/22/2023 Iron deficiency anemia, unspecified Living will on file 09/01/2021 DPA: Kervin () Living will on file at physician's office 09/01/2021 DPA: Kervin () Low blood magnesium 01/14/2019 Malignant neoplasm of colon (HCC) s/p right hemicolectomy (Dr. Alan Davila) Medicare annual wellness visit, subsequent 07/17/2018 Medicare Part B:11/08/2004 Last done: 07/17/2018 Mixed hyperlipidemia 01/03/2007 Nontoxic multinodular goiter 02/20/2023 Personal history of colon cancer 12/21/2013 s/p right hemicolectomy RBBB 03/22/2023 Sciatica 06/28/2011 Seasonal allergic rhinitis Second hand smoke exposure 01/14/2018 Sensory hearing loss, bilateral 01/21/2018 Situational depression 09/20/2022 Squamous cell skin cancer 09/21/2021 Neck: removed 09/2021 Stage 3a chronic kidney disease (HCC) 01/14/2018 Thyroid nodule 09/30/2022 Tinnitus of left ear 01/21/[address] Carrero SURGICAL HISTORY: PAST SURGICAL HISTORY Procedure Laterality Date 2D ECHO (EXEP) 05/01/2017 65%, with mild diast dysf and 1+ AL. CARDIAC STRESS TEST 05/01/2017 negative CHOLECYSTECTOMY 1985 Cholecystectomy COLONOSCOPY 07/13/2016 Repeat 07/2021 COLONOSCOPY FLX DX W/COLLJ SPEC WHEN PFRMD 12/22/2010 repeat in -2013 COLONOSCOPY FLX DX W/COLLJ SPEC WHEN PFRMD 01/08/2014 per [facility] repeat in 3-5 years COLONOSCOPY W/BIOPSY SINGLE/MULTIPLE 09/29/2009 Cecal carcinoma EGD TRANSORAL BIOPSY SINGLE/MULTIPLE 09/29/2009 Small HH HEART CATHETERIZATION 07/30/2018 normal coronaries PAST SURGICAL HISTORY OF 10/2009 Rt hemicolectomy FAMILY HISTORY: Family History Problem Relation Age of Onset Cancer Sister Metastatic cancer (lung and brain; ?primary); 2007 SOCIAL HISTORY: Social History Marital status: Spouse name: Years of education: Number of children: Social History Main Topics Drug use: Unknown DXA: DATE OF EXAM: Mar 18 2023 2:44PM [facility] 0802 - BD VFA WITH DXA - AXIAL SKELETON / PROCEDURE REASON: Hyperparathyroidism (HCC) * * * * Physician Interpretation * * * * * * * * * * * * ORIGINAL REPORT * * * * * * * * PROCEDURE: BD VFA WITH DXA - AXIAL SKELETON INDICATION: Hyperparathyroidism (HCC) TECHNIQUE: Low dose AP spine and hip images COMPARISON: 09/04/2010 LUMBAR SPINE: The bone mineral density from L1 through L4 is 0.890 grams per square centimeter which yields a T-score of -1.4.. LEFT FEMORAL NECK: The bone mineral density of the femoral neck is 0.557 grams per square centimeter which yields a T-score of -2.6.. Previous BMD(g/cm2 ) 0.707 . The change is a statistically significant decrease in bone density. LEFT HIP: The bone mineral density of the total region of the hip is 0.689 grams per square centimeter which yields a T-score of minus -2.1.. RIGHT FEMORAL NECK: The bone mineral density of the femoral neck is 0.559 grams per square centimeter which yields a T-score of -2.3.. RIGHT HIP: The bone mineral density of the total region of the hip is 0.730 grams per square centimeter which yields a T-score of -1.7.. 10-year Fracture Risk (FRAX): Major osteoporotic fracture risk 19% Hip fracture risk 7.1% CHANGE IS STATISTICALLY SIGNIFICANT IN THE SPINE OR HIP IF GREATER THAN OR EQUAL TO 0.04g/cm2 IMPRESSION: The patient's T- scores meet the World Health Organization classification for osteoporosis in the LEFT femoral neck. The patient may have an increased risk of insufficiency fractures. Recommendation: Follow up study in 2 years [facility] ORG. CLASSIFICATION OF BONE MASS CLASSIFICATION T-SCORE Normal Greater than -1 Low Bone Mass Between -1 and -2.5 (Osteopenia) Osteoporosis Less than or equal to -2.5 * * * * * * * * ADDENDUM #1 * * * * * * * * Addendum: Vertebral fracture analysis: No fractures are identified on the single digital lateral view the spine I have personally reviewed these images extensively: LABS: Latest Ref Rng 11/15/2023 Protein, Total 6.3 - 8.0 g/dL 7.2 Albumin 3.9 - 4.9 g/dL 4.1 Calcium 8.5 - 10.2 mg/dL 9.1 Bilirubin, Total 0.2 - 1.3 mg/dL 0.5 Alkaline Phosphatase 34 - 123 U/L 59 AST 13 - 35 U/L 19 ALT 7 - 38 U/L 9 Glucose 74 - 99 mg/dL 104 (H) BUN 7 - 21 mg/dL 16 Creatinine 0.58 - 0.96 mg/dL 1.23 (H) Sodium 136 - 144 mmol/L 131 (L) Potassium 3.7 - 5.1 mmol/L 3.7 Chloride 98 - 107 mmol/L 98 CO2 22 - 30 mmol/L 22 Anion Gap 8 - 15 mmol/L 11 eGFR >=60 mL/min/1.73m 43 (L) Vitamin D 25 Hydroxy 31.0 - 80.0 ng/mL 54.7 PTH, Intact 15 - 65 pg/mL 45 Magnesium 1.7 - 2.3 mg/dL 1.7 Latest Ref Rng 08/19/2023 Protein, Total 6.3 - 8.0 g/dL 7.2 Albumin 3.9 - 4.9 g/dL 4.2 Calcium 8.5 - 10.2 mg/dL 9.2 Bilirubin, Total 0.2 - 1.3 mg/dL 0.5 Alkaline Phosphatase 34 - 123 U/L 59 AST 13 - 35 U/L 21 ALT 7 - 38 U/L 11 Glucose 74 - 99 mg/dL 126 (H) BUN 7 - 21 mg/dL 14 Creatinine 0.58 - 0.96 mg/dL 1.37 (H) Sodium 136 - 144 mmol/L 130 (L) Potassium 3.7 - 5.1 mmol/L 3.9 Chloride 97 - 105 mmol/L 98 CO2 22 - 30 mmol/L 21 (L) Anion Gap 9 - 18 mmol/L 11 eGFR >=60 mL/min/1.73m 38 (L) Vitamin D 25 Hydroxy 31.0 - 80.0 ng/mL 50.5 PTH, Intact 15 - 65 pg/mL 46 Current Outpatient Medications on File Prior to Visit Medication Sig carvedilol (COREG) 12.5 mg tablet Take 1 tablet by mouth two times a day. citalopram (CELEXA) 20 mg tablet Take 1 tablet by mouth once daily. lisinopril (ZESTRIL) 20 mg tablet Take 1 tablet by mouth once daily. hydroCHLOROthiazide 25 mg tablet Take 1 tablet by mouth once daily. meclizine (ANTIVERT) 12.5 mg tab Take 1 tablet by mouth two times a day. multivit-min/iron/FA/vit K/lut (CENTRUM SILVER WOMEN ORAL) Take by mouth. Magnesium Oxide 250 mg magnesium tab Take 1 in morning and 2 at night. omeprazole (PRILOSEC) 20 mg capsule Take 2 capsules by mouth once daily. Take 30 minutes before breakfast. ztrvjpi-inumqypyz-skxyxve D3 500 mg-5 mcg (200 unit) per tablet Take 1 tablet by mouth two times a day with meals. acetaminophen (TYLENOL) 500 mg tablet Take 1 tablet by mouth every 4 hours as needed for pain. PHYSICAL EXAMINATION: VIRTUALLY General appearance: well appearing, alert, and in no acute distress - assisted by her daughter at the visit ASSESSMENT & PLAN ASSESSMENT/PLAN: 1. Primary hyperparathyroidism (HCC) - ICD9: 252.01, ICD10: E21.0 (primary diagnosis) - post-op visit - continues to do well clinically - biochemically -- serum calcium remains low--nl - she is to continue with bid calcium supplements in addition to her diet 2. Age-related osteoporosis without current pathological fracture - ICD9: 733.01, ICD10: M81.0 - will need to let the skeleton remineralize for the next 6 - 12 months or so and then strongly consider an antiresorptive -- 1- year post op 03-25-2024 - repeat DXA -- orders placed to do so at the [facility] the last week in Mar 2024 follow up in early April and prn Libertad Mckeon, MS, RD, MD, CCD, FACN, FACP, FACE [facility] Office Building Office Any part of this document that has been added/copied & pasted from other documents has been reviewed for accuracy and updated as appropriate at the time of the patient encounter documented in this encounter [facility] 11-26-2023 Note HNO ID: [id number] Author: LIBERTAD MCKEON MD Service: ? 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 The patient's identity and location were verified. Either the patient or their legal exhibit display representative has been informed of the risks, benefits, and alternatives based on a remote evaluation, and consents to proceed remotely per [place] law. I will communicate my recommendations and findings via shared medical record and/or USPS CC: s/p [facility] HPI: Leonor Pal is a 83 year old female who initially presented 05-14-2023 in referral for my expert opinion regarding post parathyroidectomy care - no milk but drinks tea and water and coffee; has cheese -- some - no individual D supplement - using gummy vitafusion Ca - no cramping and no tingling - no swallowing issues -- FOLLOW UP VISIT 10-01-2023 VIRTUALLY: She got mixed up with the calcium tablets -- she is now taking the calcium as prescribed; FOLLOW UP VISIT 11-26-2023 VIRTUALLY: Presents in follow up. Labs as noted below -- all WNL. Calcium intake -- still taking bid supplement + Centrum Silver REVIEW OF SYSTEMS GENERAL: wt is rel stavle HEENT: vision is ok ENDO/NECK: Denies jaw pain, no difficulty swallowing; CARDIOVASCULAR: none GI: none : NEPHROLITHIASIS: none ENDO/MUSCULOSKELETAL/BONE: none FRACTURES: none SKIN: PSYCH: HEMATOLOGY/LYMPHOLOGY NEURO: MEDICAL HISTORY: PAST MEDICAL HISTORY Diagnosis Date Advance directive discussed with patient 09/01/2021 Discussed 08/2021 Benign paroxysmal positional vertigo 01/14/2019 Carotid stenosis, asymptomatic, bilateral 07/21/2018 US 07/2018: less than 20% asim. Cholecystitis, unspecified Chronic right-sided low back pain Chronic right-sided thoracic back pain 07/17/2018 Colon Cancer(cecum) 09/29/[address] 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 Esparza Facial basal cell cancer 01/12/2019 Left nasal 12/[address] Esparza Family history of early CAD 01/14/2018 GERD without esophagitis HH (hiatus hernia) 09/29/2009 History of unsteady gait 03/22/2023 Hypomagnesemia 03/22/2023 Iron deficiency anemia, unspecified Living will on file 09/01/2021 DPA: Kervin () Living will on file at physician's office 09/01/2021 DPA: Kervin () Low blood magnesium 01/14/2019 Malignant neoplasm of colon (HCC) s/p right hemicolectomy (Dr. Alan Davila) Medicare annual wellness visit, subsequent 07/17/2018 Medicare Part B:11/08/2004 Last done: 07/17/2018 Mixed hyperlipidemia 01/03/2007 Nontoxic multinodular goiter 02/20/2023 Personal history of colon cancer 12/21/2013 s/p right hemicolectomy RBBB 03/22/2023 Sciatica 06/28/2011 Seasonal allergic rhinitis Second hand smoke exposure 01/14/2018 Sensory hearing loss, bilateral 01/21/2018 Situational depression 09/20/2022 Squamous cell skin cancer 09/21/2021 Neck: removed 09/2021 Stage 3a chronic kidney disease (HCC) 01/14/2018 Thyroid nodule 09/30/2022 Tinnitus of left ear 01/21/[address] Carrero SURGICAL HISTORY: PAST SURGICAL HISTORY Procedure Laterality Date 2D ECHO (EXEP) 05/01/2017 65%, with mild diast dysf and 1+ AL. CARDIAC STRESS TEST 05/01/2017 negative CHOLECYSTECTOMY 1985 Cholecystectomy COLONOSCOPY 07/13/2016 Repeat 07/2021 COLONOSCOPY FLX DX W/COLLJ SPEC WHEN PFRMD 12/22/2010 repeat in COLONOSCOPY FLX DX W/COLLJ SPEC WHEN PFRMD 01/08/2014 per repeat in 3-5 years COLONOSCOPY W/BIOPSY SINGLE/MULTIPLE 09/29/2009 Cecal carcinoma EGD TRANSORAL BIOPSY SINGLE/MULTIPLE 09/29/2009 Small HH HEART CATHETERIZATION 07/30/2018 normal coronaries PAST SURGICAL HISTORY OF 10/2009 Rt hemicolectomy FAMILY HISTORY: Family History Problem Relation Age of Onset Cancer Sister Metastatic cancer (lung and brain; ?primary); 2007 SOCIAL HISTORY: Social History Marital status: Spouse name: Years of education: Number of children: Social History Main Topics Drug use: Unknown DXA: DATE OF EXAM: Mar 18 2023 2:44PM WRB 0802 - BD VFA WITH DXA - AXIAL SKELETON / PROCEDURE REASON: Hyperparathyroidism (HCC) * * * * Physician Interpretation * * * * * * * * * * * * ORIGINAL REPORT * * * * * * * * PROCEDURE: BD VFA WITH DXA - AXIAL SKELETON INDICATION: Hyperparathyroidism (HCC) TECHNIQUE: Low dose AP spine (more content not included)... [facility] 11-16-2023 Telephone encounter Note The charges have been removed. [facility] 11-16-2023 Miscellaneous Notes The charges have been removed. Patient notified and voiced understanding. Lana Schwartz MA Do we need to have it so patient is not charged for those labs? Lana Schwartz MA Let patient know that the routine labs were due in March were pulled too early. I have put the orders back in for March. The labs she needed for endo were still completed and they will discuss those results with you at the visit with endo. thanks Cassandra Arshad PA-C documented in this encounter [facility] 11-15-2023 Telephone encounter Note Patient notified and voiced understanding. Lana Schwartz MA Do we need to have it so patient is not charged for those labs? Lana Schwartz MA [facility] 11-15-2023 Telephone encounter Note Let patient know that the routine labs were due in March were pulled too early. I have put the orders back in for March. The labs she needed for endo were still completed and they will discuss those results with you at the visit with endo. thanks Cassandra Arshad PA-C [facility] 11-15-2023 History of Present illness Narrative Radiology Service Progress Note DATE OF SERVICE: November 15, 2023 TIME: 4:14 PM PATIENT IDENTITY VERIFICATION COMPLETED USING TWO (2) STANDARD IDENTIFIERS: Name and Date of confirmed by patient verbally. FALL SCREENING: Has the patient had 2 falls in the last year or 1 fall with injury or currently using an Ambulatory Assistive Device (Walker, Cane, Wheelchair, Crutches, etc.)? No PATIENT GENDER DATA: Female. status: : No status: NO. PATIENT RELEVANT IMPLANT DATA REVIEWED: Yes PATIENT PRESENTS WITH AN IMPLANTABLE OR ATTACHED ENGINEERING DESIGN SUPERVISOR: No ALLERGIES: Reviewed and unchanged CONTRAST ALLERGY: NO. EXAM: CT -CONTRAST INDUCED NEPHROPATHY RISK FACTORS: Patient age > 60 years CREATININE: Creatinine Date Value Ref Range Status 11/15/2023 1.23 (H) 0.58 - 0.96 mg/dL Final 08/19/2023 1.37 (H) 0.58 - 0.96 mg/dL Final 05/15/2023 1.35 (H) 0.58 - 0.96 mg/dL Final Estimated Glomerular Filtration Rate Date Value Ref Range Status 11/15/2023 43 (L) >=60 mL/min/1.73m Final Comment: Estimated Glomerular Filtration Rate (eGFR) is calculated using the 2020 CKD-EPI creatinine equation. This equation utilizes serum creatinine, sex, and age as parameters. The creatinine assay has traceable calibration to isotope dilution-mass spectrometry. Refer to KDIGO guidelines for clinical interpretation. In patients with unstable renal function, e.g. those with acute kidney injury, the eGFR may not accurately reflect actual GFR. eGFR- Date Value Ref Range Status 04/10/2021 42 Final P.O.C.T. RESULTS: POC done: Yes, See Lab Tab November 15, 2023 TREATMENT: N/A PERIPHERAL IV DATA: Ambulatory: A peripheral IV was started in the Left antecubital site with a Angio cath: 18 gauge. RADIOLOGY DEPARTMENT: CT; Exam(s) Completed: CTA Brain and CTA Neck SIGNATURE: RT Philippe(R) PATIENT NAME: Leonor Pal DATE: November 15, 2023 TIME: 4:14 PM documented in this encounter [facility] 11-15-2023 Note [facility] 11-01-2023 Telephone encounter Note Patient has been identified by name and date of : Yes, Pharmacy phones for refill(s): Requested Prescriptions Pending Prescriptions Disp Refills carvedilol (COREG) 12.5 mg tablet 180 tablet 1 Sig: Take 1 tablet by mouth two times a day. citalopram (CELEXA) 20 mg tablet 90 tablet 1 Sig: Take 1 tablet by mouth once daily. lisinopril (ZESTRIL) 20 mg tablet 90 tablet 1 Sig: Take 1 tablet by mouth once daily. hydroCHLOROthiazide 25 mg tablet 90 tablet 1 Sig: Take 1 tablet by mouth once daily. meclizine (ANTIVERT) 12.5 mg tab 180 tablet 3 Sig: Take 1 tablet by mouth two times a day. Date of last office visit in primary care: 09/24/2023 Date of next office visit in primary care: 03/25/2024 Please advise. Thank you. Cassidy Meza LPN. [facility] 11-01-2023 Miscellaneous Notes Patient has been identified by name and date of : Yes, Pharmacy phones for refill(s): Requested Prescriptions Pending Prescriptions Disp Refills carvedilol (COREG) 12.5 mg tablet 180 tablet 1 Sig: Take 1 tablet by mouth two times a day. citalopram (CELEXA) 20 mg tablet 90 tablet 1 Sig: Take 1 tablet by mouth once daily. lisinopril (ZESTRIL) 20 mg tablet 90 tablet 1 Sig: Take 1 tablet by mouth once daily. hydroCHLOROthiazide 25 mg tablet 90 tablet 1 Sig: Take 1 tablet by mouth once daily. meclizine (ANTIVERT) 12.5 mg tab 180 tablet 3 Sig: Take 1 tablet by mouth two times a day. Date of last office visit in primary care: 09/24/2023 Date of next office visit in primary care: 03/25/2024 Please advise. Thank you. Cassidy Meza LPN. documented in this encounter [facility] 10-07-2023 Telephone encounter Note Patient called c/o external hemorrhoids. Patient has been dealing with them approx 6 weeks and has tried some of the over the counter products with no relief. Advised patient if she has tried Tucks. She stated she has not a this time but she will try them. She will call back in a few days if no improvement. Patient wishes to see female provider if she has to be seen later for this problem. Appointment was offered for this afternoon with Elisa but patient wishes to try OTC product and will call back if needed. Please review Irish Davis LPN [facility] Work Phone: 10-07-2023 Miscellaneous Notes Patient called c/o external hemorrhoids. Patient has been dealing with them approx 6 weeks and has tried some of the over the counter products with no relief. Advised patient if she has tried Tucks. She stated she has not a this time but she will try them. She will call back in a few days if no improvement. Patient wishes to see female provider if she has to be seen later for this problem. Appointment was offered for this afternoon with Elisa but patient wishes to try OTC product and will call back if needed. Please review Irish Davis LPN documented in this encounter [facility] 10-01-2023 History of Present illness Narrative ENDO[facility] LAST SEEN 07-09-2023 RE:Post parathyroidectomy care - 2 gland R and L upper 03-25-2023 IF THIS IS A VIRTUAL VISIT: I have communicated my name and licensure. The patient's identity and location were verified. Either the patient or their legal exhibit display representative has been informed of the risks, benefits, and alternatives based on a remote evaluation, and consents to proceed remotely per [place] law. I will communicate my recommendations and findings via shared medical record and/or USPS CC: s/p HPTH HPI: Leonor Pal is a 82 year old female who initially presented 05-14-2023 in referral for my expert opinion regarding post parathyroidectomy care - no milk but drinks tea and water and coffee; has cheese -- some - no individual D supplement - using gummy vitafusion Ca - no cramping and no tingling - no swallowing issues -- FOLLOW UP VISIT 07-09-2023 VIRTUALLY: Doing well on the whole. She notes that she feels better on ariella days. Taking 2 calcium gummies bid and the D supplement within the ca tablets - no interval changes to report FOLLOW UP VISIT 10-01-2023 VIRTUALLY: She got mixed up with the calcium tablets -- she is now taking the calcium as prescribed; REVIEW OF SYSTEMS GENERAL: wt is rel stavle HEENT: vision is ok ENDO/NECK: Denies jaw pain, no difficulty swallowing; CARDIOVASCULAR: none GI: none : NEPHROLITHIASIS: none ENDO/MUSCULOSKELETAL/BONE: none FRACTURES: none SKIN: PSYCH: HEMATOLOGY/LYMPHOLOGY NEURO: MEDICAL HISTORY: PAST MEDICAL HISTORY Diagnosis Date Advance directive discussed with patient 09/01/2021 Discussed 08/2021 Benign paroxysmal positional vertigo 01/14/2019 Carotid stenosis, asymptomatic, bilateral 07/21/2018 US 07/2018: less than 20% asim. Cholecystitis, unspecified Chronic right-sided low back pain Chronic right-sided thoracic back pain 07/17/2018 Colon Cancer(cecum) 09/29/[address] 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 Esparza Facial basal cell cancer 01/12/2019 Left nasal 12/[address] Esparza Family history of early CAD 01/14/2018 GERD without esophagitis HH (hiatus hernia) 09/29/2009 History of unsteady gait 03/22/2023 Hypomagnesemia 03/22/2023 Iron deficiency anemia, unspecified Living will on file 09/01/2021 DPA: Kervin () Living will on file at physician's office 09/01/2021 DPA: Kervin () Low blood magnesium 01/14/2019 Malignant neoplasm of colon (HCC) s/p right hemicolectomy (Dr. Alan Davila) Medicare annual wellness visit, subsequent 07/17/2018 Medicare Part B:11/08/2004 Last done: 07/17/2018 Mixed hyperlipidemia 01/03/2007 Nontoxic multinodular goiter 02/20/2023 Personal history of colon cancer 12/21/2013 s/p right hemicolectomy RBBB 03/22/2023 Sciatica 06/28/2011 Seasonal allergic rhinitis Second hand smoke exposure 01/14/2018 Sensory hearing loss, bilateral 01/21/2018 Situational depression 09/20/2022 Squamous cell skin cancer 09/21/2021 Neck: removed 09/2021 Stage 3a chronic kidney disease (HCC) 01/14/2018 Thyroid nodule 09/30/2022 Tinnitus of left ear 01/21/[address] Carrero SURGICAL HISTORY: PAST SURGICAL HISTORY Procedure Laterality Date 2D ECHO (EXEP) 05/01/2017 65%, with mild diast dysf and 1+ AL. CARDIAC STRESS TEST 05/01/2017 negative CHOLECYSTECTOMY 1985 Cholecystectomy COLONOSCOPY 07/13/2016 Repeat 07/2021 COLONOSCOPY FLX DX W/COLLJ SPEC WHEN PFRMD 12/22/2010 repeat in COLONOSCOPY FLX DX W/COLLJ SPEC WHEN PFRMD 01/08/2014 per [facility] repeat in 3-5 years COLONOSCOPY W/BIOPSY SINGLE/MULTIPLE 09/29/2009 Cecal carcinoma EGD TRANSORAL BIOPSY SINGLE/MULTIPLE 09/29/2009 Small HH HEART CATHETERIZATION 07/30/2018 normal coronaries PAST SURGICAL HISTORY OF 10/2009 Rt hemicolectomy FAMILY HISTORY: Family History Problem Relation Age of Onset Cancer Sister Metastatic cancer (lung and brain; ?primary); 2007 SOCIAL HISTORY: Social History Marital status: Spouse name: Years of education: Number of children: Social History Main Topics Drug use: Unknown DXA: DATE OF EXAM: Mar 18 2023 2:44PM [facility] 0802 - BD VFA WITH DXA - AXIAL SKELETON / PROCEDURE REASON: Hyperparathyroidism (HCC) * * * * Physician Interpretation * * * * * * * * * * * * ORIGINAL REPORT * * * * * * * * PROCEDURE: BD VFA WITH DXA - AXIAL SKELETON INDICATION: Hyperparathyroidism (HCC) TECHNIQUE: Low dose AP spine and hip images COMPARISON: 09/04/2010 LUMBAR SPINE: The bone mineral density from L1 through L4 is 0.890 grams per square centimeter which yields a T-score of -1.4.. LEFT FEMORAL NECK: The bone mineral density of the femoral neck is 0.557 grams per square centimeter which yields a T-score of -2.6.. Previous BMD(g/cm2 ) 0.707 . The change is a statistically significant decrease in bone density. LEFT HIP: The bone mineral density of the total region of the hip is 0.689 grams per square centimeter which yields a T-score of minus -2.1.. RIGHT FEMORAL NECK: The bone mineral density of the femoral neck is 0.559 grams per square centimeter which yields a T-score of -2.3.. RIGHT HIP: The bone mineral density of the total region of the hip is 0.730 grams per square centimeter which yields a T-score of -1.7.. 10-year Fracture Risk (FRAX): Major osteoporotic fracture risk 19% Hip fracture risk 7.1% CHANGE IS STATISTICALLY SIGNIFICANT IN THE SPINE OR HIP IF GREATER THAN OR EQUAL TO 0.04g/cm2 IMPRESSION: The patient's T- scores meet the World Health Organization classification for osteoporosis in the LEFT femoral neck. The patient may have an increased risk of insufficiency fractures. Recommendation: Follow up study in 2 years WORLD HEALTH ORG. CLASSIFICATION OF BONE MASS CLASSIFICATION T-SCORE Normal Greater than -1 Low Bone Mass Between -1 and -2.5 (Osteopenia) Osteoporosis Less than or equal to -2.5 * * * * * * * * ADDENDUM #1 * * * * * * * * Addendum: Vertebral fracture analysis: No fractures are identified on the single digital lateral view the spine I have personally reviewed these images extensively: LABS: Latest Ref Rng 08/19/2023 Protein, Total 6.3 - 8.0 g/dL 7.2 Albumin 3.9 - 4.9 g/dL 4.2 Calcium 8.5 - 10.2 mg/dL 9.2 Bilirubin, Total 0.2 - 1.3 mg/dL 0.5 Alkaline Phosphatase 34 - 123 U/L 59 AST 13 - 35 U/L 21 ALT 7 - 38 U/L 11 Glucose 74 - 99 mg/dL 126 (H) BUN 7 - 21 mg/dL 14 Creatinine 0.58 - 0.96 mg/dL 1.37 (H) Sodium 136 - 144 mmol/L 130 (L) Potassium 3.7 - 5.1 mmol/L 3.9 Chloride 97 - 105 mmol/L 98 CO2 22 - 30 mmol/L 21 (L) Anion Gap 9 - 18 mmol/L 11 eGFR >=60 mL/min/1.73m 38 (L) Vitamin D 25 Hydroxy 31.0 - 80.0 ng/mL 50.5 PTH, Intact 15 - 65 pg/mL 46 Component Latest Ref Rng & Units 05/15/2023 Protein, Total 6.3 - 8.0 g/dL 7.1 Albumin 3.9 - 4.9 g/dL 4.2 Calcium 8.5 - 10.2 mg/dL 9.5 Bilirubin, Total 0.2 - 1.3 mg/dL 0.5 Alkaline Phosphatase 34 - 123 U/L 64 AST 13 - 35 U/L 22 ALT 7 - 38 U/L 12 Glucose 74 - 99 mg/dL 107 (H) BUN 7 - 21 mg/dL 15 Creatinine 0.58 - 0.96 mg/dL 1.35 (H) Sodium 136 - 144 mmol/L 133 (L) Potassium 3.7 - 5.1 mmol/L 3.9 Chloride 97 - 105 mmol/L 98 CO2 22 - 30 mmol/L 24 Anion Gap 9 - 18 mmol/L 11 eGFR >=60 mL/min/1.73m 39 (L) Vitamin D 25 Hydroxy 31.0 - 80.0 ng/mL 40.3 PTH, Intact 15 - 65 pg/mL 43 Component Latest Ref Rng & Units 03/26/2023 04/11/2023 Calcium 8.5 - 10.2 mg/dL 9.5 8.6 PTH, Intact 15 - 65 pg/mL 11 (L) 56 Phosphorus 2.7 - 4.8 mg/dL 3.1 Albumin 3.9 - 4.9 g/dL 3.8 (L) Current Outpatient Medications on File Prior to Visit Medication Sig hkocwbz-sphvecnhd-tcsbhpk D3 500 mg-5 mcg (200 unit) per tablet Take 1 tablet by mouth two times a day with meals. omeprazole (PRILOSEC) 20 mg capsule Take 1 capsule by mouth once daily. Take 30 minutes before breakfast. meclizine (ANTIVERT) 12.5 mg tab Take 1 tablet by mouth two times a day. acetaminophen (TYLENOL) 500 mg tablet Take 1 tablet by mouth every 4 hours as needed for pain. citalopram (CELEXA) 20 mg tablet Take 1 tablet by mouth once daily. carvedilol (COREG) 12.5 mg tablet Take 1 tablet by mouth two times a day. hydroCHLOROthiazide 25 mg tablet Take 1 tablet by mouth once daily. lisinopril (ZESTRIL) 20 mg tablet Take 1 tablet by mouth once daily. Magnesium Oxide 250 mg magnesium tab Take 1 tablet by mouth two times a day. No current facility-administered medications on file prior to visit. PHYSICAL EXAMINATION: General appearance: well appearing, alert, and in no acute distress - assisted by her daughter at the visit ASSESSMENT & PLAN ASSESSMENT/PLAN: 1. Primary hyperparathyroidism (HCC) - ICD9: 252.01, ICD10: E21.0 (primary diagnosis) - post-op visit - continues to do well clinically - biochemically -- serum calcium was low- now much improved and joan smaller pills bid well -- bid only 2. Age-related osteoporosis without current pathological fracture - ICD9: 733.01, ICD10: M81.0 - will need to let the skeleton remineralize for the next 6 - 12 months or so and then strongly consider an antiresorptive -- 1- year post op 03-25-2024 - repeat DXA -- orders placed to do so at the [facility] the last week in Mar 2024 follow up in early April and prn Libertad Mckeon, MS, RD, MD, CCD, FACN, FACP, FACE [facility] Office Building Office Any part of this document that has been added/copied & pasted from other documents has been reviewed for accuracy and updated as appropriate at the time of the patient encounter documented in this encounter [facility] 10-01-2023 Note HNO ID: [id number] Author: LIBERTAD MCKEON MD Service: ? Author Type: Physician Type: Progress Notes Filed: 10/01/2023 11:09 Note Text: ENDOCRINE CALCIUM CLINIC LAST SEEN 07-09-2023 RE:Post parathyroidectomy care - 2 gland R and L upper 03-25-2023 IF THIS IS A VIRTUAL VISIT: I have communicated my name and licensure. The patient's identity and location were verified. Either the patient or their legal exhibit display representative has been informed of the risks, benefits, and alternatives based on a remote evaluation, and consents to proceed remotely per [place] law. I will communicate my recommendations and findings via shared medical record and/or USPS CC: s/p HPTH HPI: Leonor Pal is a 82 year old female who initially presented 05-14-2023 in referral for my expert opinion regarding post parathyroidectomy care - no milk but drinks tea and water and coffee; has cheese -- some - no individual D supplement - using gummy vitafusion Ca - no cramping and no tingling - no swallowing issues -- FOLLOW UP VISIT 07-09-2023 VIRTUALLY: Doing well on the whole. She notes that she feels better on ariella days. Taking 2 calcium gummies bid and the D supplement within the ca tablets - no interval changes to report FOLLOW UP VISIT 10-01-2023 VIRTUALLY: She got mixed up with the calcium tablets -- she is now taking the calcium as prescribed; REVIEW OF SYSTEMS GENERAL: wt is rel stavle HEENT: vision is ok ENDO/NECK: Denies jaw pain, no difficulty swallowing; CARDIOVASCULAR: none GI: none : NEPHROLITHIASIS: none ENDO/MUSCULOSKELETAL/BONE: none FRACTURES: none SKIN: PSYCH: HEMATOLOGY/LYMPHOLOGY NEURO: MEDICAL HISTORY: PAST MEDICAL HISTORY Diagnosis Date Advance directive discussed with patient 09/01/2021 Discussed 08/2021 Benign paroxysmal positional vertigo 01/14/2019 Carotid stenosis, asymptomatic, bilateral 07/21/2018 07/2018: less than 20% asim. Cholecystitis, unspecified Chronic right-sided low back pain Chronic right-sided thoracic back pain 07/17/2018 Colon Cancer(cecum) 09/29/[address] 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 Esparza Facial basal cell cancer 01/12/2019 Left nasal 12/[address] Esparza Family history of early CAD 01/14/2018 GERD without esophagitis HH (hiatus hernia) 09/29/2009 History of unsteady gait 03/22/2023 Hypomagnesemia 03/22/2023 Iron deficiency anemia, unspecified Living will on file 09/01/2021 DPA: Kervin () Living will on file at physician's office 09/01/2021 DPA: Kervin () Low blood magnesium 01/14/2019 Malignant neoplasm of colon (HCC) s/p right hemicolectomy (Dr. Alan Davila) Medicare annual wellness visit, subsequent 07/17/2018 Medicare Part B:11/08/2004 Last done: 07/17/2018 Mixed hyperlipidemia 01/03/2007 Nontoxic multinodular goiter 02/20/2023 Personal history of colon cancer 12/21/2013 s/p right hemicolectomy RBBB 03/22/2023 Sciatica 06/28/2011 Seasonal allergic rhinitis Second hand smoke exposure 01/14/2018 Sensory hearing loss, bilateral 01/21/2018 Situational depression 09/20/2022 Squamous cell skin cancer 09/21/2021 Neck: removed 09/2021 Stage 3a chronic kidney disease (HCC) 01/14/2018 Thyroid nodule 09/30/2022 Tinnitus of left ear 01/21/[address] Carrero SURGICAL HISTORY: PAST SURGICAL HISTORY Procedure Laterality Date 2D ECHO (EXEP) 05/01/2017 65%, with mild diast dysf and 1+ AL. CARDIAC STRESS TEST 05/01/2017 negative CHOLECYSTECTOMY 1985 Cholecystectomy COLONOSCOPY 07/13/2016 Repeat 07/2021 COLONOSCOPY FLX DX W/COLLJ SPEC WHEN PFRMD 12/22/2010 repeat in -2013 COLONOSCOPY FLX DX W/COLLJ SPEC WHEN PFRMD 01/08/2014 per repeat in 3-5 years COLONOSCOPY W/BIOPSY SINGLE/MULTIPLE 09/29/2009 Cecal carcinoma EGD TRANSORAL BIOPSY SINGLE/MULTIPLE 09/29/2009 Small HH HEART CATHETERIZATION 07/30/2018 normal coronaries PAST SURGICAL HISTORY OF 10/2009 Rt hemicolectomy FAMILY HISTORY: Family History Problem Relation Age of Onset Cancer Sister Metastatic cancer (lung and brain; ?primary); 2007 SOCIAL HISTORY: Social History Marital status: Spouse name: Years of education: Number of children: Social History Main Topics Drug use: Unknown DXA: DATE OF EXAM: Mar 18 2023 2:44PM [facility] 0802 - BD VFA WITH DXA - AXIAL SKELETON / PROCEDURE REASON: Hyperparathyroidism (HCC) * * * * Physician Interpretation * * * * * * * * * * * * ORIGINAL REPORT * * * * * * * * PROCEDURE: BD VFA WITH DXA - AXIAL SKELETON INDICATI (more content not included)... [facility] 09-24-2023 History of Present illness Narrative Leonor Pal is a 82 year old female here for a Medicare wellness visit. Medicare Health Risk Assessment General Health Good Exercise: Minutes/Day 0 Exercise: Days/Week Alcohol: Daily Use none Alcohol: Drinks/Day none Alcohol: 6 or more drinks none Feel off balance yes Concerns: Teeth/Dentures no Concerns: Sexual function no Troubled by feelings no Frequency: Eating healthy diet Some days ADLs requiring help no Safety precautions in home/vehicle yes Smoke, vape, chews tobacco no Difficulty hearing Yes Difficulty seeing No Current Providers Specialists: I have reviewed specialist-related care of the patient in the medical record. Medical/Family history review Reviewed and updated problem list, medical/surgical/family/social history, medications, and allergies. Opioid use review Opioid Medications (last 90 days) No data to display Depression screening Depression Screening PHQ-2 Score 09/24/2023 1 Depression screening tool completed and reviewed. Based on score and interview, patient is already diagnosed with depression. Screening tool discussed with patient, and I recommended no further intervention at this time. Cognitive screening Mini Cog Score: 3 Cognitive screening reviewed and no further action needed (score 3-5) Functional Observation Was the patient's Timed Up & Go test unsteady or ? 12 seconds? No Advance Care Planning Surrogate decision maker and/or advance care plan documented Measurements BP 118/76 Pulse 68 Temp (Src) 98.4 (Right Tympanic) Resp 18 Ht 5' 3.78 (1.62m) Wt 151 lb (68.5kg) SpO2 97% BMI 26.10 kg/(m^2). Vision Screening: Follows with optometry/ophthalmology Assessment/Plan Medicare annual wellness visit, subsequent (Z00.00) - Counseled on healthy diet and regular exercise - Fall avoidance information provided - Personalized prevention plan provided Chief Complaint Patient presents with: Medicare Wellness Exam HPI Leonor Pal is a 82 year old female who presents here today for extensive exam. Patient with hx of carotid artery disease, elevated blood sugar, HTN, GERD, Iron def anemia, hyperlipidemia, CKD stage 3, chronic back pain, tinnitus as well as those as below. Has follow up with endo next week. Has follow up with Neuro in November after repeat MRA. Has noted dry cough chronically. Reports some dysphagia at times. Otherwise, no major concerns today. Past medical history, appointments, medications, allergies reviewed. Previous Medical History PAST MEDICAL HISTORY Diagnosis Date Advance directive discussed with patient 09/01/2021 Discussed 08/2021 Benign paroxysmal positional vertigo 01/14/2019 Carotid stenosis, asymptomatic, bilateral 07/21/2018 US 07/2018: less than 20% asim. Cholecystitis, unspecified Chronic right-sided low back pain Chronic right-sided thoracic back pain 07/17/2018 Colon Cancer(cecum) 09/29/[address] 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 Esparza Facial basal cell cancer 01/12/2019 Left nasal 12/[address] Esparza Family history of early CAD 01/14/2018 GERD without esophagitis HH (hiatus hernia) 09/29/2009 History of unsteady gait 03/22/2023 Hypomagnesemia 03/22/2023 Iron deficiency anemia, unspecified Living will on file 09/01/2021 DPA: Kervin () Living will on file at physician's office 09/01/2021 DPA: Kervin () Low blood magnesium 01/14/2019 Malignant neoplasm of colon (HCC) s/p right hemicolectomy (Dr. Alan Davila) Medicare annual wellness visit, subsequent 07/17/2018 Medicare Part B:11/08/2004 Last done: 07/17/2018 Mixed hyperlipidemia 01/03/2007 Nontoxic multinodular goiter 02/20/2023 Personal history of colon cancer 12/21/2013 s/p right hemicolectomy RBBB 03/22/2023 Sciatica 06/28/2011 Seasonal allergic rhinitis Second hand smoke exposure 01/14/2018 Sensory hearing loss, bilateral 01/21/2018 Situational depression 09/20/2022 Squamous cell skin cancer 09/21/2021 Neck: removed 09/2021 Stage 3a chronic kidney disease (HCC) 01/14/2018 Thyroid nodule 09/30/2022 Tinnitus of left ear 01/21/[address] Carrero Previous Surgical History PAST SURGICAL HISTORY Procedure Laterality Date 2D ECHO (EXEP) 05/01/2017 64%, with mild diast dysf and 1+ AL. CARDIAC STRESS TEST 05/01/2017 negative CHOLECYSTECTOMY 1985 Cholecystectomy COLONOSCOPY 07/13/2016 Repeat 07/2021 COLONOSCOPY FLX DX W/COLLJ SPEC WHEN PFRMD 12/22/2010 repeat in COLONOSCOPY FLX DX W/COLLJ SPEC WHEN PFRMD 01/08/2014 per [facility] repeat in 3-5 years COLONOSCOPY W/BIOPSY SINGLE/MULTIPLE 09/29/2009 Cecal carcinoma EGD TRANSORAL BIOPSY SINGLE/MULTIPLE 09/29/2009 Small HH HEART CATHETERIZATION 07/30/2018 normal coronaries PAST SURGICAL HISTORY OF 10/2009 Rt hemicolectomy Family History FAMILY HISTORY Problem Relation Age of Onset Cancer Sister Metastatic cancer (lung and brain; ?primary); 2007 Patient Allergies ALLERGIES Allergen Reactions Penicillins Swelling, Myalgia Tolerated cephalexin 10/2022 Vioxx [Rofecoxib] Unknown Zoloft [Sertraline] GI Upset Patient thought it made her feel sick, however she stated she was taking the new med 3 times a day and didn't start the other medication. (Zoloft and ativan were prescribed at same time). So we question if she was taking the correct medication or taking it as prescribed. Current Medications Current Outpatient Medications on File Prior to Visit Medication Sig multivit-min/iron/FA/vit K/lut (CENTRUM SILVER WOMEN ORAL) Take by mouth. wrvjsty-[id number]-[id number] D3 500 mg-5 mcg (200 unit) per tablet Take 1 tablet by mouth two times a day with meals. omeprazole (PRILOSEC) 20 mg capsule Take 1 capsule by mouth once daily. Take 30 minutes before breakfast. meclizine (ANTIVERT) 12.5 mg tab Take 1 tablet by mouth two times a day. acetaminophen (TYLENOL) 500 mg tablet Take 1 tablet by mouth every 4 hours as needed for pain. citalopram (CELEXA) 20 mg tablet Take 1 tablet by mouth once daily. carvedilol (COREG) 12.5 mg tablet Take 1 tablet by mouth two times a day. hydroCHLOROthiazide 25 mg tablet Take 1 tablet by mouth once daily. lisinopril (ZESTRIL) 20 mg tablet Take 1 tablet by mouth once daily. Magnesium Oxide 250 mg magnesium tab Take 1 tablet by mouth two times a day. No current facility-administered medications on file prior to visit. Social History Social History Tobacco Use Smoking status: Never Smokeless tobacco: Never Vaping Use Vaping Use: Never used Substance Use Topics Alcohol use: No Drug use: No Review of Symptoms REVIEW OF SYSTEMS GENERAL: No weight loss, malaise or fevers HEENT: No changes in hearing or vision, no nose bleeds or other nasal problems NECK: Negative for lumps, goiter, pain and significant neck swelling RESPIRATORY: Negative for cough, hemoptysis, wheezing, COPD, dyspnea or shortness of breath CARDIOVASCULAR: Negative for chest pain, leg swelling, CHF or palpitations GI: Negative for abdominal discomfort, blood in stools or black stools, change in bowel habit, heart burn, nausea, vomiting : No history of dysuria, frequency or incontinence MUSCULOSKELETAL: chronic arthritis SKIN: Negative for lesions, rash, and itching PSYCH: Negative for sleep disturbance, mood disorder and recent psychosocial stressors HEMATOLOGY/LYMPHOLOGY: Negative for prolonged bleeding, bruising easily or swollen nodes ENDOCRINE: Negative for cold or heat intolerance, polyuria, polydipsia and goiter NEURO: No history of headaches, syncope, paralysis, seizures or tremors EXAM: BP 118/76 (BP Site: Left Arm, BP Position: Sitting, BP Cuff Size: Regular Adult) Pulse 68 Temp 36.9 C (98.4 F) (Right Tympanic) Resp 18 Ht 162 cm (5' 3.78) Wt 68.5 kg (151 lb) SpO2 97% BMI 26.10 kg/m General Appearance: Well appearing, alert, in no acute distress, well-hydrated, well nourished.. Skin: deferred per pt. Head: Normocephalic, no masses, lesions, tenderness or abnormalities. Eyes: Anicteric sclera. Pupils are equally round and reactive to light. Extraocular movements are intact. . Ears: External ears normal, canals clear, TM retracted. Nose/Sinuses: Nares normal, septum midline, mucosa normal, no drainage or sinus tenderness. Oropharynx: Lips, mucosa, and tongue normal, teeth and gums normal, oropharynx normal. Neck: Supple, no adenopathy; thyroid symmetric, normal size, no bruits. Lungs: Lungs clear to auscultation. No wheezing, rhonchi, rales.. Heart: RRR without murmur, gallop, or rubs. No ectopy. Abdomen: mild epigastric tenderness to palp. No rebound. BS wnl. Extremities: No deformities, edema, skin discoloration, clubbing or cyanosis. Good capillary refill.. Peripheral Pulses: Normal. Neurologic: Gait normal. Reflexes normal and symmetric. Sensation grossly intact.. Health Maintenance List DTaP,Tdap,Td Vaccine(1 - Tdap) Never done Shingrix Vaccine(1 of 2) Never done RSV Vaccine(1 - 1-dose 60+ series) Never done Advance Directive Discussion due on 06/10/2023 Diabetes Screening due on 08/18/2026 Bone Density Screening Completed Influenza Vaccine Completed Covid-19 Vaccine Completed Pneumococcal Vaccine: 65+ Completed HPV Vaccine Aged Out Data reviewed Latest Ref Rng 08/19/2023 WBC 3.70 - 11.00 k/uL 6.66 RBC 3.90 - 5.20 m/uL 3.85 (L) Hemoglobin 11.5 - 15.5 g/dL 12.4 Hematocrit 36.0 - 46.0 % 34.5 (L) MCV 80.0 - 100.0 fL 89.6 MCH 26.0 - 34.0 pg 32.2 MCHC 30.5 - 36.0 g/dL 35.9 RDW-CV 11.5 - 15.0 % 12.7 Platelet Count 150 - 400 k/uL 268 MPV 9.0 - 12.7 fL 9.7 Neut% % 67.1 Abs Neut (ANC) 1.45 - 7.50 k/uL 4.47 Lymph% % 19.8 Abs Lymph 1.00 - 4.00 k/uL 1.32 [place]% % 10.8 Abs [place] <0.87 k/uL 0.72 Eosin% % 1.1 Abs Eosin <0.46 k/uL 0.07 Baso% % 0.9 Abs Baso <0.11 k/uL 0.06 Immature Gran % % 0.3 IMMATURE GRANS (ABS) <0.10 k/uL <0.03 NRBC /100 WBC 0.0 Absolute nRBC <0.01 k/uL <0.01 DTYPE Auto Protein, Total 6.3 - 8.0 g/dL 7.2 Albumin 3.9 - 4.9 g/dL 4.2 Calcium 8.5 - 10.2 mg/dL 9.2 Bilirubin, Total 0.2 - 1.3 mg/dL 0.5 Alkaline Phosphatase 34 - 123 U/L 59 AST 13 - 35 U/L 21 ALT 7 - 38 U/L 11 Glucose 74 - 99 mg/dL 126 (H) BUN 7 - 21 mg/dL 14 Creatinine 0.58 - 0.96 mg/dL 1.37 (H) Sodium 136 - 144 mmol/L 130 (L) Potassium 3.7 - 5.1 mmol/L 3.9 Chloride 97 - 105 mmol/L 98 CO2 22 - 30 mmol/L 21 (L) Anion Gap 9 - 18 mmol/L 11 eGFR >=60 mL/min/1.73m 38 (L) Total Cholesterol, Nonfasting <200 mg/dL 182 Triglycerides, Nonfasting <150 mg/dL 119 HDL Cholesterol, Nonfasting >39 mg/dL 51 LDL Cholesterol, Nonfasting <100 mg/dL 107 (H) Non HDL Cholesterol, Nonfasting <130 mg/dL 131 (H) VLDL Cholesterol, Nonfasting <30 mg/dL 24 Total Chol/HDL Ratio, Nonfasting <5.10 mg/dL 3.57 LDL/HDL Ratio, Nonfasting <2.54 mg/dL 2.10 Iron 41 - 186 ug/dL 112 TIBC 232 - 386 ug/dL 317 Transferrin Saturation 15.0 - 57.0 % 35.3 Hemoglobin A1C 4.3 - 5.6 % 5.4 Estimated Average Glucose mg/dL 108 Vitamin B12 232 - 1,245 pg/mL 869 TSH 0.270 - 4.200 mIU/L 3.670 Magnesium 1.7 - 2.3 mg/dL 1.6 (L) ASSESSMENT/PLAN: 1. Medicare annual wellness visit, subsequent - ICD9: V70.0, ICD10: Z00.00 (primary diagnosis) - Counseled on healthy diet and regular exercise 2. Advance directive discussed with patient - ICD9: V65.49, ICD10: Z71.89 Copy in chart is up to date 3. Essential hypertension - ICD9: 401.9, ICD10: I10 - Controlled - Continue current medications - Recommend home blood pressure monitoring, to bring results to next visit - Encouraged sodium restriction, DASH or Mediterranean diet - Recommend regular aerobic exercise We discussed dry cough as potential SE of lisinopril. Patient will consider options and let me know if she would like to switch medication to and ARB. - BASIC METABOLIC PANEL 4. Mixed hyperlipidemia - ICD9: 272.2, ICD10: E78.2 - Controlled - Continue current medications - Counseled on healthy diet and regular exercise - LIPID PANEL, NONFASTING 5. Primary hyperparathyroidism (HCC) - ICD9: 252.01, ICD10: E21.0 Cont with endo 6. Nonruptured cerebral aneurysm - ICD9: 437.3, ICD10: I67.1 Cont with neurovascular 7. Stage 3b chronic kidney disease (HCC) - ICD9: 585.3, ICD10: N18.32 - eGFR: 38 Worsening - Counseled on avoiding NSAIDs, adequate hydration 8. Bilateral hearing loss, unspecified hearing loss type - ICD9: 389.9, ICD10: H91.93 Set up with ent for testing - CONSULT TO ENT 9. GERD without esophagitis - ICD9: 530.81, ICD10: K21.9 - increase omeprazole to 40mg. 10. Hypomagnesemia - ICD9: 275.2, ICD10: E83.42 Increase mg to 250 in morning and 500 at bedtime - MAGNESIUM 11. Elevated fasting blood sugar - ICD9: 790.21, ICD10: R73.01 stable - HEMOGLOBIN A1C 12. Malignant neoplasm of colon, unspecified part of colon (HCC) - ICD9: 153.9, ICD10: C18.9 Continue current management. 13. Iron deficiency anemia, unspecified iron deficiency anemia type - ICD9: 280.9, ICD10: D50.9 stable 14. Age-related osteoporosis without current pathological fracture - ICD9: 733.01, ICD10: M81.0 Cont with endo 15. Carotid stenosis, asymptomatic, bilateral - ICD9: 433.10, 433.30, ICD10: I65.23 Patient has CTA of neck in November. Follow up routine in 6 months with labs prior. Cassandra Arshad PA-C I spent a total of 50 minutes on the date of the service which included preparing to see the patient, [id number] patient care, completing clinical documentation, obtaining and/or reviewing separately obtained history, performing a medically appropriate examination, ordering medications, tests, or procedures, and communicating results to the patient/family/caregiver. , documented in this encounter [facility] 09-24-2023 Instructions Cassandra Arshad PA-C - 09/24/2023 10:36 AM EDT Screening schedule The following prevention plan is recommended: DTaP,Tdap,Td Vaccine(1 - Tdap) Never done Shingrix Vaccine(1 of 2) Never done RSV Vaccine(1 - 1-dose 60+ series) Never done Advance Directive Discussion due on 06/10/2023 WHAT YOU CAN DO TO PREVENT FALLS Many falls can be prevented. By making some changes, you can lower your chances of falling. Four things YOU can do to prevent falls for you* and your caregiver 1. Begin a regular exercise program Exercise is one of the most important ways to lower your chances of falling. It makes you stronger and helps you feel better. Exercises that improve balance and coordination (like [place] Chi) are the most helpful. Lack of exercise leads to weakness and increases your chances of falling. Ask your doctor or health care provider about the best type of exercise program for you. 2. Have your health care provider review your medicines Have your doctor or pharmacist review all the medicines you take, even [id number] medicines. As you get older, the way medicines work in your body can change. Some medicines, or combinations of medicines, can make you sleepy or dizzy and can cause you to fall. 3. Have your vision checked Have your eyes checked by an eye doctor at least once a year. You may be wearing the wrong glasses or have a condition like glaucoma or cataracts that limits your vision. Poor vision can increase your chances of falling. 4. Make your home safer About half of all falls happen at home. To make your home safer: Remove things you can trip over (like papers, books, clothes, and shoes) from stairs and places where you walk. Remove small throw rugs or use double-sided tape to keep the rugs from slipping. Keep items you use often in cabinets you can reach easily without using a step stool. Have grab bars put in next to your toilet and in the tub or shower. Use non-slip mats in the bathtub and on shower floors. Improve the lighting in your home. As you get older, you need brighter lights to see well. Hang light-weight curtains or shades to reduce glare. Have handrails and lights put in on all staircases. Wear shoes both inside and outside the house. Avoid going barefoot or wearing slippers. For more information, contact: Centers for Disease Control and Prevention www.cdc.gov/injury * This information may not apply if you have certain medical conditions. documented in this encounter [facility] 07-09-2023 Note HNO ID: [id number] Author: LIBERTAD MCKEON MD Service: ? 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 The patient's identity and location were verified. Either the patient or their legal exhibit display representative has been informed of the risks, benefits, and alternatives based on a remote evaluation, and consents to proceed remotely per [place] law. I will communicate my recommendations and findings via shared medical record and/or USPS CC: s/p HPTH HPI: Leonor Pal is a 82 year old female who initially presented 05-14-2023 in referral for my expert opinion regarding post parathyroidectomy care - no milk but drinks tea and water and coffee; has cheese -- some - no individual D supplement - using gummy vitafusion Ca - no cramping and no tingling - no swallowing issues -- FOLLOW UP VISIT 07-09-2023 VIRTUALLY: Doing well on the whole. She notes that she feels better on ariella days. Taking 2 calcium gummies bid and the D supplement within the ca tablets - no interval changes to report REVIEW OF SYSTEMS GENERAL: wt is rel stavle HEENT: vision is ok ENDO/NECK: Denies jaw pain, no difficulty swallowing; CARDIOVASCULAR: none GI: none : NEPHROLITHIASIS: none ENDO/MUSCULOSKELETAL/BONE: none FRACTURES: none SKIN: PSYCH: HEMATOLOGY/LYMPHOLOGY NEURO: MEDICAL HISTORY: PAST MEDICAL HISTORY Diagnosis Date Advance directive discussed with patient 09/01/2021 Discussed 08/2021 Benign paroxysmal positional vertigo 01/14/2019 Carotid stenosis, asymptomatic, bilateral 07/21/2018 07/2018: less than 20% asim. Cholecystitis, unspecified Chronic right-sided low back pain Chronic right-sided thoracic back pain 07/17/2018 Colon Cancer(cecum) 09/29/[address] 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 Esparza Facial basal cell cancer 01/12/2019 Left nasal 12/[address] Esparza Family history of early CAD 01/14/2018 GERD without esophagitis HH (hiatus hernia) 09/29/2009 History of unsteady gait 03/22/2023 Hypomagnesemia 03/22/2023 Iron deficiency anemia, unspecified Living will on file 09/01/2021 DPA: Kervin () Living will on file at physician's office 09/01/2021 DPA: Kervin () Low blood magnesium 01/14/2019 Malignant neoplasm of colon (HCC) s/p right hemicolectomy (Dr. Alan Davila) Medicare annual wellness visit, subsequent 07/17/2018 Medicare Part B:11/08/2004 Last done: 07/17/2018 Mixed hyperlipidemia 01/03/2007 Nontoxic multinodular goiter 02/20/2023 Personal history of colon cancer 12/21/2013 s/p right hemicolectomy RBBB 03/22/2023 Sciatica 06/28/2011 Seasonal allergic rhinitis Second hand smoke exposure 01/14/2018 Sensory hearing loss, bilateral 01/21/2018 Situational depression 09/20/2022 Squamous cell skin cancer 09/21/2021 Neck: removed 09/2021 Stage 3a chronic kidney disease (HCC) 01/14/2018 Thyroid nodule 09/30/2022 Tinnitus of left ear 01/21/[address] Carrero SURGICAL HISTORY: PAST SURGICAL HISTORY Procedure Laterality Date 2D ECHO (EXEP) 05/01/2017 64%, with mild diast dysf and 1+ AL. CARDIAC STRESS TEST 05/01/2017 negative CHOLECYSTECTOMY 1985 Cholecystectomy COLONOSCOPY 07/13/2016 Repeat 07/2021 COLONOSCOPY FLX DX W/COLLJ SPEC WHEN PFRMD 12/22/2010 repeat in -2013 COLONOSCOPY FLX DX W/COLLJ SPEC WHEN PFRMD 01/08/2014 per [facility] repeat in 3-5 years COLONOSCOPY W/BIOPSY SINGLE/MULTIPLE 09/29/2009 Cecal carcinoma EGD TRANSORAL BIOPSY SINGLE/MULTIPLE 09/29/2009 Small HH HEART CATHETERIZATION 07/30/2018 normal coronaries PAST SURGICAL HISTORY OF 10/2009 Rt hemicolectomy FAMILY HISTORY: Family History Problem Relation Age of Onset Cancer Sister Metastatic cancer (lung and brain; ?primary); 2007 SOCIAL HISTORY: Social History Marital status: Spouse name: Years of education: Number of children: Social History Main Topics Drug use: Unknown DXA: DATE OF EXAM: Mar 18 2023 2:44PM [facility] 0802 - BD VFA WITH DXA - AXIAL SKELETON / PROCEDURE REASON: Hyperparathyroidism (HCC) * * * * Physician Interpretation * * * * * * * * * * * * ORIGINAL REPORT * * * * * * * * PROCEDURE: BD VFA WITH DXA - AXIAL SKELETON INDICATION: Hyperparathyroidism (HCC) TECHNIQUE: Low dose AP spine and hip images COMPARISON: 09/04/2010 LUMBAR SPINE: The bone mineral (more content not included)... [facility] 05-16-2023 Instructions Kierra Alfaro MD - 05/16/2023 8:56 AM EST Images from the original note were not included. Your brain aneurysm is about 4-5 mm in size, and is stable in the right anterior cerebral artery. We will plan to continue monitoring closely, with another set of pictures 6 months from now. We will get a CT angiogram for our next visit in November, so that we can see the irregular arteries in the neck a bit better. They are partially cut off on today's MR angiogram. Brain Aneurysm The Basics Written by the doctors and editors at [facility] What is a brain aneurysm? -- A brain aneurysm is a bulge or ballooning in the wall of a blood vessel in the brain (figure 1). A small aneurysm often causes no symptoms. But if it grows, an aneurysm can press on nerves inside your brain, causing pain and other symptoms. It can also leak blood or burst, causing a sudden, severe headache. A burst aneurysm is a very serious, life-threatening emergency that needs to be treated right away. It leads to a bleeding (hemorrhagic) stroke. Stroke is the term doctors use when a part of the brain is damaged because of a problem with blood flow. The stroke that happens after a brain aneurysm bursts is called a subarachnoid hemorrhage. What are the symptoms of a brain aneurysm? -- Most small brain aneurysms cause no symptoms and are found during an imaging test (which a doctor does to look at pictures of a person's brain). For example, a person might get an imaging test because a family member had an aneurysm, or for an unrelated reason. But a large aneurysm can cause symptoms that include: A bad headache Pain in the face Blurry or double vision If the aneurysm bursts, symptoms can include: A sudden, severe headache - People often say the headache is the worst they have ever had. A stiff neck Nausea and vomiting Passing out Are there tests for a brain aneurysm? -- Yes. If you have symptoms of a brain aneurysm, or if you are at risk of having one, your doctor might do several different tests, including: Imaging tests - These tests include a CT scan and an MRI. Both show pictures of your brain. During these tests, you might also get an injection of a dye that makes it easier for doctors to see blood flow in the brain. Lumbar puncture (sometimes called a spinal tap) - During this procedure, a doctor puts a needle into your lower back and takes out a small sample of spinal fluid. Spinal fluid is the fluid that surrounds the brain and spinal cord. If this fluid has more red blood cells than usual, you could have a subarachnoid hemorrhage. Cerebral angiogram - For this test, your doctor puts a thin, plastic tube into a large blood vessel, usually near the top of your thigh. Then they will advance the tube through your blood vessels past your heart to your brain. Your doctor then injects dye that shows up on an X-ray. This lets the doctor see the blood vessels in your brain and find the aneurysm. How is a brain aneurysm treated? -- There are 2 main ways to treat a brain aneurysm: Endovascular coiling - The first part of this treatment is like a cerebral angiogram (see above). But instead of injecting dye into the tube, your doctor advances a soft wire up through your blood vessels into the aneurysm. The wire coils up inside the aneurysm and seals it off from the blood vessel. Surgical clipping - In this surgery, your doctor puts a tiny metal clip on the base of the aneurysm to stop the blood flow to it. If your aneurysm is leaking or bursts, your doctor will do one of these treatments right away. If it has not burst, you might not be treated. The decision depends on the size of the aneurysm, your age, and whether you have other health problems. Whether or not your aneurysm is treated, your doctor will likely do more imaging tests over time. This is to make sure the aneurysm isn't growing or coming back, and that new aneurysms aren't forming. Are there things that make people more likely to have a brain aneurysm? -- Yes. Having a parent, brother, or sister who had an aneurysm makes you more likely to have one. People with certain medical conditions also have a higher risk of aneurysm than other people. Other things that can raise your chances include: Having high blood pressure Smoking cigarettes Drinking too much alcohol Using illegal drugs, such as cocaine or amphetamines Avoiding these things might help lower your chance of getting an aneurysm. All topics are updated as new evidence becomes available and our peer review process is complete. This topic retrieved from [employer] on: October 09, 2021. Topic 69234 Version 8.0 Release: 30.2.2 - C30.121 2021 [employer]. and/or its affiliates. All rights reserved. A brain aneurysm is a swollen bulge or ballooning in the wall of a blood vessel in the brain. Consumer Information Use and Disclaimer This generalized information is a limited summary of diagnosis, treatment, and/or medication information. It is not meant to be comprehensive and should be used as a tool to help the user understand and/or assess potential diagnostic and treatment options. It does NOT include all information about conditions, treatments, medications, side effects, or risks that may apply to a specific patient. It is not intended to be medical advice or a substitute for the medical advice, diagnosis, or treatment of a health care provider based on the health care provider's examination and assessment of a patient's specific and unique circumstances. Patients must speak with a health care provider for complete information about their health, medical questions, and treatment options, including any risks or benefits regarding use of medications. This information does not endorse any treatments or medications as safe, effective, or approved for treating a specific patient. [employer] and its affiliates disclaim any warranty or liability relating to this information or the use thereof.The use of this information is governed by the Terms of Use, available at https://www.[employer].com/en/k now/swnkkhds-gowooijvqfxrz-lwyma 2021 [employer] and its affiliates and/or licensors. All rights reserved. Call 911 or get to the nearest emergency room as soon as possible if you have these symptoms. documented in this encounter [facility] 05-16-2023 Note HNO ID: [id number] Author: Kierra Alfaro MD Service: ? Author Type: Physician Type: Progress Notes Filed: 05/17/2023 2:15 PM Note Text: [facility] Established Visit Leonor Pal CC#: [id number] Date of Service: 05/16/2023 Primary Care Provider: Chencho Urbina MD FOLLOW UP VISIT This is 6 month follow-up Reason for Visit: Right A2 BETH aneurysm, close monitoring Handedness: right From previous consult visit with Dr Keyes 11/13/22 Ms. Pal is an 82-year-old female, who presents for evaluation of an incidentally discovered brain aneurysm. The patient had screening carotid ultrasound, which raised suspicion of a thyroid cyst. Thyroid ultrasound was ordered, followed by CT of the neck to evaluate the thyroid. Incidentally, the neck CT also included images of the brain, which raised suspicion of an unruptured brain aneurysm. The patient otherwise reports occasional mild headaches. She reports no neurologic symptoms or deficits otherwise. There is no family history of brain aneurysm or hemorrhage. The patient does not smoke. Her blood pressure is controlled with medications. She presents today with her family to discuss available management options. Hypertension Y Coronary Artery Disease NA Diabetes NA Obesity NA Dyslipidemia NA Tobacco Use (Please Update Smoking History) NA Stroke NA Intracranial Aneurysm NA Interval history: - No change in neurological or systemic health - No change in headache severity, frequency or characteristics - No transient or persistent visual, language, speech, swallowing, motor, sensory, coordination, or gait deficits. Past Medical History: ACTIVE PROBLEM LIST Chronic Right-Sided Low Back Pain Disorder of bone and cartilage, unspecified Diverticulitis of colon (without mention of hemorrhage)(562.11) Seasonal Allergic Rhinitis Gerd Without Esophagitis Essential Hypertension Elevated Fasting Blood Sugar Mixed Hyperlipidemia Colon Cancer(cecum) Hh (Hiatus Hernia) Sciatica Malignant Neoplasm of Colon (Hcc) Personal History of Colon Cancer Iron Deficiency Anemia, Unspecified Encounter for Screening Mammogram for Breast Cancer Stage 3a Chronic Kidney Disease (Hcc) Second Hand Smoke Exposure Family History of Early Cad Sensory Hearing Loss, Bilateral Tinnitus of Left Ear Medicare Annual Wellness Visit, Subsequent Chronic Right-Sided Thoracic Back Pain Carotid Stenosis, Asymptomatic, Bilateral Facial Basal Cell Cancer Benign Paroxysmal Positional Vertigo Medication Management Living Will On File At Physician's Office Advance Directive Discussed With Patient Squamous Cell Skin Cancer Situational Depression Thyroid Nodule Neck Mass Nontoxic Multinodular Goiter Hyponatremia Nonruptured Cerebral Aneurysm Rbbb History of Unsteady Gait Hypomagnesemia Primary Hyperparathyroidism (Hcc) Age-Related Osteoporosis Without Current Pathological Fracture PAST SURGICAL HISTORY Procedure Laterality Date 2D ECHO (EXEP) 05/01/2017 65%, with mild diast dysf and 1+ AL. CARDIAC STRESS TEST 05/01/2017 negative CHOLECYSTECTOMY 1985 Cholecystectomy COLONOSCOPY 07/13/2016 Repeat 07/2021 COLONOSCOPY FLX DX W/COLLJ SPEC WHEN PFRMD 12/22/2010 repeat in COLONOSCOPY FLX DX W/COLLJ SPEC WHEN PFRMD 01/08/2014 per repeat in 3-5 years COLONOSCOPY W/BIOPSY SINGLE/MULTIPLE 09/29/2009 Cecal carcinoma EGD TRANSORAL BIOPSY SINGLE/MULTIPLE 09/29/2009 Small HH HEART CATHETERIZATION 07/30/2018 normal coronaries PAST SURGICAL HISTORY OF 10/2009 Rt hemicolectomy Allergies: Penicillins, Vioxx [Rofecoxib], and Zoloft [Sertraline] Medications: Current Outpatient Medications Medication Sig uinaeiv-obetptxuh-avdxvye D3 500 mg-5 mcg (200 unit) per tablet Take 1 tablet by mouth two times a day with meals. omeprazole (PRILOSEC) 20 mg capsule Take 1 capsule by mouth once daily. Take 30 minutes before breakfast. meclizine (ANTIVERT) 12.5 mg tab Take 1 tablet by mouth two times a day. citalopram (CELEXA) 20 mg tablet Take 1 tablet by mouth once daily. carvedilol (COREG) 12.5 mg tablet Take 1 tablet by mouth two times a day. hydroCHLOROthiazide 25 mg tablet Take 1 tablet by mouth once daily. lisinopril (ZESTRIL) 20 mg tablet Take 1 tablet by mouth once daily. Magnesium Oxide 250 mg magnesium tab Take 1 tablet by mouth two times a day. acetaminophen (TYLENOL) 500 mg tablet Take 1 tablet by mouth every 4 hours as needed for pain. No current facility-administered medications for this visit. Social History Tobacco Use Smoking status: Never Smokeless tobacco: Never Vaping Use Vaping Use: Never used Substance Use Topics Alcohol use: No Drug use: No Review of Systems - ROS negative unless otherwise noted in HPI PHYSICAL EXAMINATION BP 125/81 Pulse 64 Resp 16 Ht 157.5 cm (5' 2) Wt 67.4 kg (148 lb 9.4 oz) SpO2 100% BMI 27.18 kg/m? General: Th (more content not included)... [facility] 05-16-2023 History of Present illness Narrative [facility] Established Visit Leonor Pal CC#: [id number] Date of Service: 05/16/2023 Primary Care Provider: Chencho Urbina MD FOLLOW UP VISIT This is 6 month follow-up Reason for Visit: Right A2 BETH aneurysm, close monitoring Handedness: right From previous consult visit with Dr Keyes 11/13/22 Ms. Pal is an 82-year-old female, who presents for evaluation of an incidentally discovered brain aneurysm. The patient had screening carotid ultrasound, which raised suspicion of a thyroid cyst. Thyroid ultrasound was ordered, followed by CT of the neck to evaluate the thyroid. Incidentally, the neck CT also included images of the brain, which raised suspicion of an unruptured brain aneurysm. The patient otherwise reports occasional mild headaches. She reports no neurologic symptoms or deficits otherwise. There is no family history of brain aneurysm or hemorrhage. The patient does not smoke. Her blood pressure is controlled with medications. She presents today with her family to discuss available management options. Hypertension Y Coronary Artery Disease NA Diabetes NA Obesity NA Dyslipidemia NA Tobacco Use (Please Update Smoking History) NA Stroke NA Intracranial Aneurysm NA Interval history: - No change in neurological or systemic health - No change in headache severity, frequency or characteristics - No transient or persistent visual, language, speech, swallowing, motor, sensory, coordination, or gait deficits. Past Medical History: ACTIVE PROBLEM LIST Chronic Right-Sided Low Back Pain Disorder of bone and cartilage, unspecified Diverticulitis of colon (without mention of hemorrhage)(562.11) Seasonal Allergic Rhinitis Gerd Without Esophagitis Essential Hypertension Elevated Fasting Blood Sugar Mixed Hyperlipidemia Colon Cancer(cecum) Hh (Hiatus Hernia) Sciatica Malignant Neoplasm of Colon (Hcc) Personal History of Colon Cancer Iron Deficiency Anemia, Unspecified Encounter for Screening Mammogram for Breast Cancer Stage 3a Chronic Kidney Disease (Hcc) Second Hand Smoke Exposure Family History of Early Cad Sensory Hearing Loss, Bilateral Tinnitus of Left Ear Medicare Annual Wellness Visit, Subsequent Chronic Right-Sided Thoracic Back Pain Carotid Stenosis, Asymptomatic, Bilateral Facial Basal Cell Cancer Benign Paroxysmal Positional Vertigo Medication Management Living Will On File At Physician's Office Advance Directive Discussed With Patient Squamous Cell Skin Cancer Situational Depression Thyroid Nodule Neck Mass Nontoxic Multinodular Goiter Hyponatremia Nonruptured Cerebral Aneurysm Rbbb History of Unsteady Gait Hypomagnesemia Primary Hyperparathyroidism (Hcc) Age-Related Osteoporosis Without Current Pathological Fracture PAST SURGICAL HISTORY Procedure Laterality Date 2D ECHO (EXEP) 05/01/2017 65%, with mild diast dysf and 1+ AL. CARDIAC STRESS TEST 05/01/2017 negative CHOLECYSTECTOMY 1985 Cholecystectomy COLONOSCOPY 07/13/2016 Repeat 07/2021 COLONOSCOPY FLX DX W/COLLJ SPEC WHEN PFRMD 12/22/2010 repeat in COLONOSCOPY FLX DX W/COLLJ SPEC WHEN PFRMD 01/08/2014 per repeat in 3-5 years COLONOSCOPY W/BIOPSY SINGLE/MULTIPLE 09/29/2009 Cecal carcinoma EGD TRANSORAL BIOPSY SINGLE/MULTIPLE 09/29/2009 Small HH HEART CATHETERIZATION 07/30/2018 normal coronaries PAST SURGICAL HISTORY OF 10/2009 Rt hemicolectomy Allergies: Penicillins, Vioxx [Rofecoxib], and Zoloft [Sertraline] Medications: Current Outpatient Medications Medication Sig gbxqqdf-hvgvuisnm-fjaemdk D3 500 mg-5 mcg (200 unit) per tablet Take 1 tablet by mouth two times a day with meals. omeprazole (PRILOSEC) 20 mg capsule Take 1 capsule by mouth once daily. Take 30 minutes before breakfast. meclizine (ANTIVERT) 12.5 mg tab Take 1 tablet by mouth two times a day. citalopram (CELEXA) 20 mg tablet Take 1 tablet by mouth once daily. carvedilol (COREG) 12.5 mg tablet Take 1 tablet by mouth two times a day. hydroCHLOROthiazide 25 mg tablet Take 1 tablet by mouth once daily. lisinopril (ZESTRIL) 20 mg tablet Take 1 tablet by mouth once daily. Magnesium Oxide 250 mg magnesium tab Take 1 tablet by mouth two times a day. acetaminophen (TYLENOL) 500 mg tablet Take 1 tablet by mouth every 4 hours as needed for pain. No current facility-administered medications for this visit. Social History Tobacco Use Smoking status: Never Smokeless tobacco: Never Vaping Use Vaping Use: Never used Substance Use Topics Alcohol use: No Drug use: No Review of Systems - ROS negative unless otherwise noted in HPI PHYSICAL EXAMINATION BP 125/81 Pulse 64 Resp 16 Ht 157.5 cm (5' 2) Wt 67.4 kg (148 lb 9.4 oz) SpO2 100% BMI 27.18 kg/m General: The patient was well-groomed, appeared to be of stated age, and was in no acute distress. Cardiovascular: Regular heart rate and rhythm. Radial pulses normal. Respiratory: Normal breaths and breathing effort. No apparent dyspnea on exam. Head and neck: Atraumatic and normocephalic. Normal and symmetric cervical range of motion. Integuments: No hematoma or ecchymoses. Neurological exam: - Awake, alert, aware of events. Oriented to date/ month/ year; self; place. Provided own history. - Language normal in fluency, conversational comprehension - Normal visual rivera OU to confrontation. TRINITY. Extraocular movements full, conjugate, and with normal accomodation and no nystagmus or drift. - Facial sensation and movements normal. Normal speech; no dysarthria. Normal and symmetric palate rise. Normal head turn and sternocleidomastoid activation. Midline tongue protrusion. - Normal tone, bulk and power in bilateral upper and lower extremities. No pronator drift. No adventitious movements. - Normal primary sensory modalities (proprioception, touch). No spatial inattention or extinction. - Normal truncal and appendicular coordination. - Normal stance and gait RESULTS I have independently reviewed and interpreted the following imaging studies and laboratory test results. MRA brain wo con (05/15/2023) 1. 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 2. Questionable irregularity of extracranial bilateral ICA as detailed. 3. Patent remaining intracranial MRA circulation. Labs Glucose (mg/dL) Date Value 05/15/2023 107 04/10/2021 103 Potassium (mmol/L) Date Value 05/15/2023 3.9 04/10/2021 3.7 Sodium (mmol/L) Date Value 05/15/2023 133 04/10/2021 137 Chloride (mmol/L) Date Value 05/15/2023 98 04/10/2021 104 CO2 (mmol/L) Date Value 05/15/2023 24 04/10/2021 18 Creatinine (mg/dL) Date Value 05/15/2023 1.35 04/10/2021 1.45 BUN (mg/dL) Date Value 05/15/2023 15 04/10/2021 16 Anion Gap (mmol/L) Date Value 05/15/2023 11 04/10/2021 15 Calcium (mg/dL) Date Value 04/10/2021 9.8 Calcium, Total (mg/dL) Date Value 05/15/2023 9.5 Protein, Total (g/dL) Date Value 05/15/2023 7.1 04/10/2021 7.3 Albumin (g/dL) Date Value 05/15/2023 4.2 04/10/2021 4.2 Bilirubin, Total (mg/dL) Date Value 05/15/2023 0.5 04/10/2021 0.4 Alkaline Phosphatase (U/L) Date Value 05/15/2023 64 04/10/2021 98 AST (U/L) Date Value 05/15/2023 22 04/10/2021 21 ALT (U/L) Date Value 05/15/2023 12 04/10/2021 10 Stroke Mechanism and Scales Cerebrovascular Disease w/o Stroke Event: Unruptured Aneurysm NIH Stroke Scale: LOC: 0 LOC Questions: 0 LOC Commands: 0 LOC Normal Gaze: 0 Visual Rivera: 0 Facial Palsy: 0 Motor Left Arm: 0 Motor Right Arm: 0 Motor Left Le Motor Right Le Limb Ataxia: 0 Sensory: 0 Language: 0 Dysarthria: 0 Extinction/Neglect: 0 Total Daily NIHSS: 0 IMPRESSION Katherin's right A2 segment aneurysm is stable in size. The MRA TOF demonstrates the morphology of the aneurysm better than the previous study, which was a post-contrast CT of the neck. The aneurysm does have a slightly elongated appearance but is otherwise fairly regular. We revisited the natural history, benefits and risks of various management options including optimizing medical risk factors, with serial monitoring vs endovascular intervention. We discussed the risks of subarachnoid hemorrhage if the aneurysm were to rupture, and the importance of immediate medical attention were this to occur. Katherin has a good understanding of Dr Keyes's and my conversations and of the options available for her brain aneurysm. She would like to continue with medical care, with serial monitoring. 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 These findings, however, are cut off from the MRA [id number]. I suggested that we obtain a CTA head and neck in 6 months, then return to clinic to follow up with Shanika Mishra APRN.SITE ADMINISTRATOR, our neuroendovascular nurse practitioner. This will allow us to have an overall better view of her cervical and intracranial arterial circulation. Katherin and her daughter Barbie are agreeable with this plan. SIGNATURE Kierra Alfaro MD Staff, Neuroendovascular Intervention documented in this encounter [facility] 05-14-2023 History of Present illness Narrative [facility] RE[facility] Patient seen at the request of / referral from: Marge Hayes MD RE:Post parathyroidectomy care - 2 gland R and L upper 03-25-2023 IF THIS IS A VIRTUAL VISIT: I have communicated my name and licensure. The patient's identity and location were verified. Either the patient or their legal exhibit display representative has been informed of the risks, benefits, and alternatives based on a remote evaluation, and consents to proceed remotely per [place] law. I will communicate my recommendations and findings via shared medical record and/or USPS CC: HPI: Leonor Pal is a 82 year old female who presents in referral for my expert opinion regarding post parathyroidectomy care - no milk but drinks tea and water and coffee; has cheese -- some - no individual D supplement - using gummy vitafusion Ca - no cramping and no tingling - no swallowing issues -- REVIEW OF SYSTEMS GENERAL: wt is rel stavle HEENT: vision is ok ENDO/NECK: Denies jaw pain, no difficulty swallowing; CARDIOVASCULAR: none GI: none : NEPHROLITHIASIS: none ENDO/MUSCULOSKELETAL/BONE: none FRACTURES: none SKIN: PSYCH: HEMATOLOGY/LYMPHOLOGY NEURO: MEDICAL HISTORY: PAST MEDICAL HISTORY Diagnosis Date Advance directive discussed with patient 09/01/2021 Discussed 08/2021 Benign paroxysmal positional vertigo 01/14/2019 Carotid stenosis, asymptomatic, bilateral 07/21/2018 07/2018: less than 20% asim. Cholecystitis, unspecified Chronic right-sided low back pain Chronic right-sided thoracic back pain 07/17/2018 Colon Cancer(cecum) 09/29/[address] 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 Esparza Facial basal cell cancer 01/12/2019 Left nasal 12/[address] Esparza Family history of early CAD 01/14/2018 GERD without esophagitis HH (hiatus hernia) 09/29/2009 History of unsteady gait 03/22/2023 Hypomagnesemia 03/22/2023 Iron deficiency anemia, unspecified Living will on file 09/01/2021 DPA: Kervin () Living will on file at physician's office 09/01/2021 DPA: Kervin () Low blood magnesium 01/14/2019 Malignant neoplasm of colon (HCC) s/p right hemicolectomy (Dr. Alan Davila) Medicare annual wellness visit, subsequent 07/17/2018 Medicare Part B:11/08/2004 Last done: 07/17/2018 Mixed hyperlipidemia 01/03/2007 Nontoxic multinodular goiter 02/20/2023 Personal history of colon cancer 12/21/2013 s/p right hemicolectomy RBBB 03/22/2023 Sciatica 06/28/2011 Seasonal allergic rhinitis Second hand smoke exposure 01/14/2018 Sensory hearing loss, bilateral 01/21/2018 Situational depression 09/20/2022 Squamous cell skin cancer 09/21/2021 Neck: removed 09/2021 Stage 3a chronic kidney disease (HCC) 01/14/2018 Thyroid nodule 09/30/2022 Tinnitus of left ear 01/21/[address] Carrero Prior history of radiation treatment to the neck: Known thyroid disease: Known parathyroid disease: Prior neck operations: Family history of hypercalcemia: Family history of thyroid cancer: Family history of other endocrine tumors: Pertinent medications (levothyroxine, blood thinners, calcium, diuretics, lithium, Sensipar, biotin): SURGICAL HISTORY: PAST SURGICAL HISTORY Procedure Laterality Date 2D ECHO (EXEP) 05/01/2017 65%, with mild diast dysf and 1+ AL. CARDIAC STRESS TEST 05/01/2017 negative CHOLECYSTECTOMY 1985 Cholecystectomy COLONOSCOPY 07/13/2016 Repeat 07/2021 COLONOSCOPY FLX DX W/COLLJ SPEC WHEN PFRMD 12/22/2010 repeat in COLONOSCOPY FLX DX W/COLLJ SPEC WHEN PFRMD 01/08/2014 per repeat in 3-5 years COLONOSCOPY W/BIOPSY SINGLE/MULTIPLE 09/29/2009 Cecal carcinoma EGD TRANSORAL BIOPSY SINGLE/MULTIPLE 09/29/2009 Small HH HEART CATHETERIZATION 07/30/2018 normal coronaries PAST SURGICAL HISTORY OF 10/2009 Rt hemicolectomy FAMILY HISTORY: Family History Problem Relation Age of Onset Cancer Sister Metastatic cancer (lung and brain; ?primary); 2007 SOCIAL HISTORY: Social History Marital status: Spouse name: Years of education: Number of children: Social History Main Topics Drug use: Unknown DXA: DATE OF EXAM: Mar 18 2023 2:44PM WRB [id number] - BD VFA WITH DXA - AXIAL SKELETON / PROCEDURE REASON: Hyperparathyroidism (HCC) * * * * Physician Interpretation * * * * * * * * * * * * ORIGINAL REPORT * * * * * * * * PROCEDURE: BD VFA WITH DXA - AXIAL SKELETON INDICATION: Hyperparathyroidism (HCC) TECHNIQUE: Low dose AP spine and hip images COMPARISON: 09/04/2010 LUMBAR SPINE: The bone mineral density from L1 through L4 is 0.890 grams per square centimeter which yields a T-score of -1.4.. LEFT FEMORAL NECK: The bone mineral density of the femoral neck is 0.557 grams per square centimeter which yields a T-score of -2.6.. Previous BMD(g/cm2 ) 0.707 . The change is a statistically significant decrease in bone density. LEFT HIP: The bone mineral density of the total region of the hip is 0.689 grams per square centimeter which yields a T-score of minus -2.1.. RIGHT FEMORAL NECK: The bone mineral density of the femoral neck is 0.559 grams per square centimeter which yields a T-score of -2.3.. RIGHT HIP: The bone mineral density of the total region of the hip is 0.730 grams per square centimeter which yields a T-score of -1.7.. 10-year Fracture Risk (FRAX): Major osteoporotic fracture risk 19% Hip fracture risk 7.1% CHANGE IS STATISTICALLY SIGNIFICANT IN THE SPINE OR HIP IF GREATER THAN OR EQUAL TO 0.04g/cm2 IMPRESSION: The patient's T- scores meet the World Health Organization classification for osteoporosis in the LEFT femoral neck. The patient may have an increased risk of insufficiency fractures. Recommendation: Follow up study in 2 years [facility] ORG. CLASSIFICATION OF BONE MASS CLASSIFICATION T-SCORE Normal Greater than -1 Low Bone Mass Between -1 and -2.5 (Osteopenia) Osteoporosis Less than or equal to -2.5 * * * * * * * * ADDENDUM #1 * * * * * * * * Addendum: Vertebral fracture analysis: No fractures are identified on the single digital lateral view the spine I have personally reviewed these images extensively: LABS: Component Latest Ref Rng & Units 03/26/2023 04/11/2023 Calcium 8.5 - 10.2 mg/dL 9.5 8.6 PTH, Intact 15 - 65 pg/mL 11 (L) 56 Phosphorus 2.7 - 4.8 mg/dL 3.1 Albumin 3.9 - 4.9 g/dL 3.8 (L) Current Medications Current Outpatient Medications on File Prior to Visit Medication Sig omeprazole (PRILOSEC) 20 mg capsule Take 1 capsule by mouth once daily. Take 30 minutes before breakfast. meclizine (ANTIVERT) 12.5 mg tab Take 1 tablet by mouth two times a day. acetaminophen (TYLENOL) 500 mg tablet Take 1 tablet by mouth every 4 hours as needed for pain. ejcjmdi-ajdqyeeja-wemznte D3 500 mg-5 mcg (200 unit) per tablet Take 1 tablet by mouth three times a day. calcium carbonate (TUMS) 500 mg chew Take 1 tablet by mouth every hour as needed (mouth or hand numbness or tingling). citalopram (CELEXA) 20 mg tablet Take 1 tablet by mouth once daily. carvedilol (COREG) 12.5 mg tablet Take 1 tablet by mouth two times a day. hydroCHLOROthiazide 25 mg tablet Take 1 tablet by mouth once daily. lisinopril (ZESTRIL) 20 mg tablet Take 1 tablet by mouth once daily. Magnesium Oxide 250 mg magnesium tab Take 1 tablet by mouth two times a day. No current facility-administered medications on file prior to visit. PHYSICAL EXAMINATION: General appearance: well appearing, alert, and in no acute distress - assisted by her daughter at the visit ASSESSMENT & PLAN ASSESSMENT/PLAN: 1. Primary hyperparathyroidism (HCC) - ICD9: 252.01, ICD10: E21.0 (primary diagnosis) - post-op visit doing well clinically - biochemically -- serum calcium was low - increase back to 500 mg bid for now and recheck the labs - not currently on a D supplement -- will also check levels - CALCIUM CARBONATE 500 MG-VITAMIN D3 5 MCG (200 UNIT) TABLET - COMP METABOLIC PANEL - VITAMIN D 25 HYDROXY - PTH INTACT BLD 2. Age-related osteoporosis without current pathological fracture - ICD9: 733.01, ICD10: M81.0 - will need to let the skeleton remineralize for the next 6 - 12 months or so and then strongly consider an antiresorptive 8- week follow up, labs now I thank you for the opportunity to participate in the care of Leonor Pal Please do not hesitate to contact me if you have further concerns or questions. This chart has been routed to the referring provider electronically Libertad Mckeon, MS, RD, MD, CCD, FACN, FACP, FACE [facility] Medical Office Building Office Any part of this document that has been added/copied & pasted from other documents has been reviewed for accuracy and updated as appropriate at the time of the patient encounter documented in this encounter [facility] 05-14-2023 Note HNO ID: [id number] Author: Libertad Mckeon MD Service: ? Author Type: Physician Type: Progress Notes Filed: 05/14/2023 2:17 PM Note Text: [facility] REFERRAL Patient seen at the request of / referral from: Marge Hayes MD RE:Post parathyroidectomy care - 2 gland R and L upper 03-25-2023 IF THIS IS A VIRTUAL VISIT: I have communicated my name and licensure. The patient's identity and location were verified. Either the patient or their legal exhibit display representative has been informed of the risks, benefits, and alternatives based on a remote evaluation, and consents to proceed remotely per [place] law. I will communicate my recommendations and findings via shared medical record and/or USPS CC: HPI: Leonor Pal is a 82 year old female who presents in referral for my expert opinion regarding post parathyroidectomy care - no milk but drinks tea and water and coffee; has cheese -- some - no individual D supplement - using gummy vitafusion Ca - no cramping and no tingling - no swallowing issues -- REVIEW OF SYSTEMS GENERAL: wt is rel stavle HEENT: vision is ok ENDO/NECK: Denies jaw pain, no difficulty swallowing; CARDIOVASCULAR: none GI: none : NEPHROLITHIASIS: none ENDO/MUSCULOSKELETAL/BONE: none FRACTURES: none SKIN: PSYCH: HEMATOLOGY/LYMPHOLOGY NEURO: MEDICAL HISTORY: PAST MEDICAL HISTORY Diagnosis Date Advance directive discussed with patient 09/01/2021 Discussed 08/2021 Benign paroxysmal positional vertigo 01/14/2019 Carotid stenosis, asymptomatic, bilateral 07/21/2018 US 07/2018: less than 20% asim. Cholecystitis, unspecified Chronic right-sided low back pain Chronic right-sided thoracic back pain 07/17/2018 Colon Cancer(cecum) 09/29/[address] 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 Esparza Facial basal cell cancer 01/12/2019 Left nasal 12/[address] Esparza Family history of early CAD 01/14/2018 GERD without esophagitis HH (hiatus hernia) 09/29/2009 History of unsteady gait 03/22/2023 Hypomagnesemia 03/22/2023 Iron deficiency anemia, unspecified Living will on file 09/01/2021 DPA: Kervin () Living will on file at physician's office 09/01/2021 DPA: Kervin () Low blood magnesium 01/14/2019 Malignant neoplasm of colon (HCC) s/p right hemicolectomy (Dr. Alan Davila) Medicare annual wellness visit, subsequent 07/17/2018 Medicare Part B:11/08/2004 Last done: 07/17/2018 Mixed hyperlipidemia 01/03/2007 Nontoxic multinodular goiter 02/20/2023 Personal history of colon cancer 12/21/2013 s/p right hemicolectomy RBBB 03/22/2023 Sciatica 06/28/2011 Seasonal allergic rhinitis Second hand smoke exposure 01/14/2018 Sensory hearing loss, bilateral 01/21/2018 Situational depression 09/20/2022 Squamous cell skin cancer 09/21/2021 Neck: removed 09/2021 Stage 3a chronic kidney disease (HCC) 01/14/2018 Thyroid nodule 09/30/2022 Tinnitus of left ear 01/21/[address] Carrero Prior history of radiation treatment to the neck: Known thyroid disease: Known parathyroid disease: Prior neck operations: Family history of hypercalcemia: Family history of thyroid cancer: Family history of other endocrine tumors: Pertinent medications (levothyroxine, blood thinners, calcium, diuretics, lithium, Sensipar, biotin): SURGICAL HISTORY: PAST SURGICAL HISTORY Procedure Laterality Date 2D ECHO (EXEP) 05/01/2017 65%, with mild diast dysf and 1+ AL. CARDIAC STRESS TEST 05/01/2017 negative CHOLECYSTECTOMY 1985 Cholecystectomy COLONOSCOPY 07/13/2016 Repeat 07/2021 COLONOSCOPY FLX DX W/COLLJ SPEC WHEN PFRMD 12/22/2010 repeat in COLONOSCOPY FLX DX W/COLLJ SPEC WHEN PFRMD 01/08/2014 per [facility] repeat in 3-5 years COLONOSCOPY W/BIOPSY SINGLE/MULTIPLE 09/29/2009 Cecal carcinoma EGD TRANSORAL BIOPSY SINGLE/MULTIPLE 09/29/2009 Small HH HEART CATHETERIZATION 07/30/2018 normal coronaries PAST SURGICAL HISTORY OF 10/2009 Rt hemicolectomy FAMILY HISTORY: Family History Problem Relation Age of Onset Cancer Sister Metastatic cancer (lung and brain; ?primary); 2007 SOCIAL HISTORY: Social History Marital status: Spouse name: Years of education: Number of children: Social History Main Topics Drug use: Unknown DXA: DATE OF EXAM: Mar 18 2023 2:44PM B 0802 - BD VFA WITH DXA - AXIAL SKELETON / PROCEDURE REASON: Hyperparathyroidism (HCC) * * * * Physician Interpretation * * * * * * * * * * * * ORIGINAL REPORT * * * * * * * * PROCEDURE: BD VFA WITH DXA - AXIAL SKELETON INDICATION: Hyperparathyroidism (HCC) TECHNIQUE: Low dose AP spine and hip images COMPARISON: 09/04/2010 LUMB (more content not included)... [facility] 04-10-2023 History of Present illness Narrative Endocrinology Metabolism [place] [facility] [place] Marge Hayes M.D. Section of Endocrine Surgery and Advanced Laparoscopic Surgery [address] [place] [address], [place] [address] ENDOCRINE SURGERY POST OPERATIVE FOLLOW UP NOTE NAME: Leonor Pal [facility] NO: [id number] : 1940 Surgeon: Dr. Marge Hayes This was a phone visit. I have communicated my name and active licensure. The patient's identity and physical location were verified at the time of this visit. Either the patient or their legal exhibit display representative has been informed of the risks and benefits of -- and alternatives to -- treatment through a remote evaluation and consents to proceed with the evaluation remotely. HPI: Leonor Pal presents to clinic for a postoperative visit after Parathyroidectomy on 03/25/23. At the time of the surgery, parathyroid glands removed included right upper left upper. Intraoperatively, the patient's intact PTH levels dropped appropriately at the end of the procedure. On POD#1, labs showed: - PARATHYROID DATA SHEET Latest Ref Rng & Units 03/26/2023 CALCIUM 8.5 - 10.2 mg/dL CALCIUM 8.5 - 10.2 mg/dL 9.5 CALCIUM IONIZED, WHOLE BLOOD 1.08 - 1.30 mmol/L PTH, INTACT 15 - 65 pg/mL 11 (L) PHOSPHORUS 2.7 - 4.8 mg/dL CREAT 0.58 - 0.96 mg/dL CREATININE 0.58 - 0.96 mg/dL VITAMIN D 25 HYDROXY 31.0 - 80.0 ng/mL VITAMIN D 25 HYDROXY 31.0 - 80.0 ng/mL VIT D1,25 DIHYDROXY 19.9 - 79.3 pg/mL CREATININE 24 HR UR 0.800 - 1.800 g/24 hr CALCIUM, URINE 24 HR 100.0 - 300.0 mg/24 hr The patient reports no complaints. Pathology was reviewed with the patient. PATHOLOGY:A. Left upper parathyroid: - Hypercellular parathyroid tissue. - Benign thyroid tissue. B. Right upper parathyroid: - Focally hypercellular parathyroid tissue. PHYSICAL EXAM: On physical exam, the patient is well appearing, alert, and oriented. On inspection, the skin over the anterior neck is smooth, no mass is visualized. The surgical incision is healing well. No signs of wound infection or hematoma. Palpation revealed neck to be supple. LABS: Recent Labs 03/26/23 0556 03/22/23 1021 03/14/23 0751 02/20/23 1240 09/05/22 0832 08/29/22 0801 03/01/22 0754 08/28/21 0815 CA 9.5 10.2 10.3* 10.5* 9.9 10.4* 9.3 9.1 PTH 11* -- -- 155* 75* -- -- -- MG -- -- 1.4* -- -- 1.6* 1.7 1.6* P -- -- -- 2.4* -- -- -- -- IMPRESSION: Leonor Pal is doing well after Parathyroidectomy for Primary hyperparathyroidism PLAN: Will obtain Calcium and PTH labs today. She will follow up with Dr. Libertad Mckeon for further management and 6-month follow up. Marge Hayes MD 04/10/2023 documented in this encounter [facility] 03-26-2023 Note HNO ID: [id number] Author: Marline Brito Jr., MD Service: ? Author Type: Physician Type: Progress Notes Filed: 03/26/2023 7:10 AM Note Text: ENDOCRINE SURGERY INPATIENT PROGRESS NOTE Name: Leonor Pal Date: March 26, 2023 POD# 1 S/P parathyroidectomy S: Recovering appropriately. No dysphagia. No dysphonia. No paresthesias. No signs of hematoma. Small bruise. O: MEDICATIONS: Current Facility-Administered Medications Medication Dose Route Frequency benzocaine-menthol 1 Lozenge (CHLORASEPTIC) 1 Lozenge MUCOUS MEMBRANE (TOPICAL MOUTH AND THROAT) q 2 H PRN phenol 1 Convoy (CHLORASEPTIC) 1 Convoy MUCOUS MEMBRANE (TOPICAL MOUTH AND THROAT) q 2 H PRN dextrose 5% in NaCl 0.45% with 20 mEq/L KCl iv infusion 75 mL/hr INTRAVENOUS CONTINUOUS acetaminophen 500 mg tab(s) (TYLENOL) 500 mg ORAL q 4 H PRN tdhyhpn-fzkytyhks-yacyabh D3 500 mg-5 mcg (200 unit) 1 tablet 1 tablet ORAL TID calcium carbonate 500 mg chewable tab(s) (TUMS) 500 mg ORAL q 1 H PRN benzocaine-menthol 1 Lozenge (CHLORASEPTIC) 1 Lozenge MUCOUS MEMBRANE (TOPICAL MOUTH AND THROAT) q 2 H PRN phenol 1 Convoy (CHLORASEPTIC) 1 Convoy MUCOUS MEMBRANE (TOPICAL MOUTH AND THROAT) q 2 H PRN ondansetron (PF) 4 mg injection (ZOFRAN) 4 mg INTRAVENOUS q 6 H PRN NaCl 0.9% iv flush bag 20 mL INTRAVENOUS PRN carvedilol 12.5 mg tab(s) (COREG) 12.5 mg ORAL BID w MEALS citalopram 20 mg tab(s) (CeleXA) 20 mg ORAL DAILY hydroCHLOROthiazide 25 mg tab(s) 25 mg ORAL DAILY lisinopril 20 mg tab(s) (ZESTRIL) 20 mg ORAL DAILY pantoprazole DR 20 mg tab(s) (PROTONIX) 20 mg ORAL DAILY (6 AM) PHYSICAL EXAM: BP 144/76 Pulse 87 Temp 37 ?C (98.6 ?F) (Oral) Resp 18 Ht 157.5 cm (5' 2) Wt 64.4 kg (142 lb) SpO2 92% BMI 25.97 kg/m? General Appearance: In no acute distress. Well appearing. Neuro: Alert and oriented x3. Neck: soft Abdomen: Soft. Non-distended. Non-tender. No guarding or rebound. Extremities: Warm and well perfused. Intake/Output Summary (Last 24 hours) at 03/26/2023 0709 Last data filed at 03/25/2023 1025 Gross per 24 hour Intake 700 ml Output 20 ml Net 680 ml LABS: Calcium, Total Date Value Ref Range Status 03/22/2023 10.2 8.5 - 10.2 mg/dL Final Magnesium Date Value Ref Range Status 03/14/2023 1.4 (L) 1.7 - 2.3 mg/dL Final Phosphorus Date Value Ref Range Status 02/20/2023 2.4 (L) 2.7 - 4.8 mg/dL Final TSH Date Value Ref Range Status 02/06/2023 1.530 0.270 - 4.200 mIU/L Final PTH, Intact Date Value Ref Range Status 02/20/2023 155 (H) 15 - 65 pg/mL Final ASSESSMENT: Leonor Pal is POD1 and recovering well. PLAN of Care: - Regular diet - No SQH - SCDs - Multimodal pain regimen, minimize narcotics - Discharge this morning A review of daily goals, interventions, and plan of care with the multidisciplinary team and patient has been conducted. The patient?s concerns have been addressed and the patient agrees to proceed with today?s plan of care. SIGNATURE: Marline Brito Junior, MD Clinical Associate Endocrine and Metabolism [place], Department of Endocrine Surgery [facility] 03-25-2023 Note HNO ID: [id number] Author: Marline Brito Jr., MD Service: ? Author Type: Physician Type: Progress Notes Filed: 03/25/2023 6:44 PM Note Text: ENDOCRINE SURGERY INPATIENT PROGRESS NOTE Name: Leonor Pal Date: March 25, 2023 POD#0 S/P parathyroidectomy S: Recovering appropriately. No dysphagia. No dysphonia. No paresthesias. No signs of hematoma. O: MEDICATIONS: Current Facility-Administered Medications Medication Dose Route Frequency benzocaine-menthol 1 Lozenge (CHLORASEPTIC) 1 Lozenge MUCOUS MEMBRANE (TOPICAL MOUTH AND THROAT) q 2 H PRN phenol 1 Convoy (CHLORASEPTIC) 1 Convoy MUCOUS MEMBRANE (TOPICAL MOUTH AND THROAT) q 2 H PRN dextrose 5% in NaCl 0.45% with 20 mEq/L KCl iv infusion 75 mL/hr INTRAVENOUS CONTINUOUS acetaminophen 500 mg tab(s) (TYLENOL) 500 mg ORAL q 4 H PRN czrtdkz-nszczxivr-mtmmnwl D3 500 mg-5 mcg (200 unit) 1 tablet 1 tablet ORAL TID calcium carbonate 500 mg chewable tab(s) (TUMS) 500 mg ORAL q 1 H PRN benzocaine-menthol 1 Lozenge (CHLORASEPTIC) 1 Lozenge MUCOUS MEMBRANE (TOPICAL MOUTH AND THROAT) q 2 H PRN phenol 1 Convoy (CHLORASEPTIC) 1 Convoy MUCOUS MEMBRANE (TOPICAL MOUTH AND THROAT) q 2 H PRN ondansetron (PF) 4 mg injection (ZOFRAN) 4 mg INTRAVENOUS q 6 H PRN NaCl 0.9% iv flush bag 20 mL INTRAVENOUS PRN carvedilol 12.5 mg tab(s) (COREG) 12.5 mg ORAL BID w MEALS citalopram 20 mg tab(s) (CeleXA) 20 mg ORAL DAILY hydroCHLOROthiazide 25 mg tab(s) 25 mg ORAL DAILY lisinopril 20 mg tab(s) (ZESTRIL) 20 mg ORAL DAILY [START ON 03/26/2023] pantoprazole DR 20 mg tab(s) (PROTONIX) 20 mg ORAL DAILY (6 AM) PHYSICAL EXAM: BP 145/77 Pulse 104 Temp 36.8 ?C (98.2 ?F) (Oral) Resp 20 Ht 157.5 cm (5' 2) Wt 64.4 kg (142 lb) SpO2 95% BMI 25.97 kg/m? General Appearance: In no acute distress. Well appearing. Neuro: Alert and oriented x3. Neck: soft Abdomen: Soft. Non-distended. Non-tender. No guarding or rebound. Extremities: Warm and well perfused. Intake/Output Summary (Last 24 hours) at 03/25/2023 1843 Last data filed at 03/25/2023 1025 Gross per 24 hour Intake 700 ml Output 20 ml Net 680 ml LABS: Calcium, Total Date Value Ref Range Status 03/22/2023 10.2 8.5 - 10.2 mg/dL Final Magnesium Date Value Ref Range Status 03/14/2023 1.4 (L) 1.7 - 2.3 mg/dL Final Phosphorus Date Value Ref Range Status 02/20/2023 2.4 (L) 2.7 - 4.8 mg/dL Final TSH Date Value Ref Range Status 02/06/2023 1.530 0.270 - 4.200 mIU/L Final PTH, Intact Date Value Ref Range Status 02/20/2023 155 (H) 15 - 65 pg/mL Final ASSESSMENT: Leonor Pal is POD1 and recovering well. PLAN of Care: - Regular diet - No SQH - SCDs - Multimodal pain regimen, minimize narcotics - Follow-up PTH and Ca in AM A review of daily goals, interventions, and plan of care with the multidisciplinary team and patient has been conducted. The patient?s concerns have been addressed and the patient agrees to proceed with today?s plan of care. SIGNATURE: Marline Brito Junior, MD Clinical Associate Endocrine and Metabolism [place], Department of Endocrine Surgery [facility] 03-25-2023 Note HNO ID: [id number] Author: Amrita Fischer APRN.JEWELRY BENCH WORKER Service: ? Author Type: Nurse Bitumastic Applier Type: Anesthesia Procedure Notes Filed: 03/25/2023 8:16 AM Note Text: ANESTHESIOLOGY PROCEDURE NOTE Airway General Information Procedure Start Time/Medication Administration: 03/25/2023 7:51 AM Patient location during procedure: OR Timeout Performed Pre-procedure: timeout performed Consent Obtained: Yes Patient identity confirmed: arm band, care user experience team lead and patient Staffing JEWELRY BENCH WORKER: Amrita Fischer APRN.JEWELRY BENCH WORKER Indications and Patient Condition Indications for airway management: anesthesia Preoxygenated: yes anesthesia circuit Patient position: sniffing Method: asleep Difficult Mask: No Final Airway Details Final airway type: endotracheal airway Final Endotracheal Airway: NIM tube Cuffed: yes Successful intubation technique: video laryngoscopy Devices used: Mckee Endotracheal tube insertion site: oral Blade size: #3 ETT size (mm): 6.0 Measured from: lips Measurement (cm): 21 Placement verified by: capnometry Cormack-Lehane Classification: grade I - full view of glottis Number of attempts at approach: 1 Failed airway: no Unrecognized esophageal intubation: no Airway not difficult SIGNATURE: Amrita Fischer APRN.CRNA PATIENT NAME: Leonor Pal DATE: March 25, 2023 TIME: 8:15 AM CSN: [id number] [facility] 03-22-2023 Instructions Chencho Urbina MD - 03/22/2023 11:44 AM EDT Please get labs and urine test done on or after 09/13/2023 prior to your next visit. Dr Urbina increased the citalopram to 20 mg a day He also advised to change the Magnesium 250 mg to one twice a day. documented in this encounter [facility] 03-22-2023 History of Present illness Narrative Chief Complaint Patient presents with: Recheck: 6 months HPI Leonor Pal is a 82 year old female who presents here today for Chronic Medical Conditions.. Patient with hx of carotid artery disease, elevated blood sugar, HTN, GERD, Iron def anemia, hyperlipidemia, CKD stage 3, chronic back pain, tinnitus as well as those reviewed and addressed below and in ROS. Patient has been seeing a general surgeon for a mass off the side of her thyroid. She has also seen Neurosurgery for a brain aneurysm. Patient is here today with her daughter and [id number]. Patient has been doing ok. Past medical history, appointments, medications, allergies reviewed. Previous Medical History PAST MEDICAL HISTORY Diagnosis Date Advance directive discussed with patient 09/01/2021 Discussed 08/2021 Benign paroxysmal positional vertigo 01/14/2019 Carotid stenosis, asymptomatic, bilateral 07/21/2018 US 07/2018: less than 20% asim. Cholecystitis, unspecified Chronic right-sided low back pain Chronic right-sided thoracic back pain 07/17/2018 Colon Cancer(cecum) 09/29/[address] 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 Esparza Facial basal cell cancer 01/12/2019 Left nasal 12/[address] Esparza Family history of early CAD 01/14/2018 GERD without esophagitis HH (hiatus hernia) 09/29/2009 Iron deficiency anemia, unspecified Living will on file 09/01/2021 DPA: Kervin () Living will on file at physician's office 09/01/2021 DPA: Kervin () Low blood magnesium 01/14/2019 Malignant neoplasm of colon (HCC) s/p right hemicolectomy (Dr. Alan Davila) Medicare annual wellness visit, subsequent 07/17/2018 Medicare Part B:11/08/2004 Last done: 07/17/2018 Mixed hyperlipidemia 01/03/2007 Personal history of colon cancer 12/21/2013 s/p right hemicolectomy Sciatica 06/28/2011 Seasonal allergic rhinitis Second hand smoke exposure 01/14/2018 Sensory hearing loss, bilateral 01/21/2018 Situational depression 09/20/2022 Squamous cell skin cancer 09/21/2021 Neck: removed 09/2021 Stage 3a chronic kidney disease (HCC) 01/14/2018 Thyroid nodule 09/30/2022 Tinnitus of left ear 01/21/[address] Carrero Previous Surgical History PAST SURGICAL HISTORY Procedure Laterality Date 2D ECHO (EXEP) 05/01/2017 65%, with mild diast dysf and 1+ AL. CARDIAC STRESS TEST 05/01/2017 negative CHOLECYSTECTOMY 1985 Cholecystectomy COLONOSCOPY 07/13/2016 Repeat 07/2021 COLONOSCOPY FLX DX W/COLLJ SPEC WHEN PFRMD 12/22/2010 repeat in COLONOSCOPY FLX DX W/COLLJ SPEC WHEN PFRMD 01/08/2014 per repeat in 3-5 years COLONOSCOPY W/BIOPSY SINGLE/MULTIPLE 09/29/2009 Cecal carcinoma EGD TRANSORAL BIOPSY SINGLE/MULTIPLE 09/29/2009 Small HH HEART CATHETERIZATION 07/30/2018 normal coronaries PAST SURGICAL HISTORY OF 10/2009 Rt hemicolectomy Family History FAMILY HISTORY Problem Relation Age of Onset Cancer Sister Metastatic cancer (lung and brain; ?primary); 2007 Patient Allergies ALLERGIES Allergen Reactions Penicillins Swelling, Myalgia Vioxx [Rofecoxib] Unknown Zoloft [Sertraline] GI Upset Patient thought it made her feel sick, however she stated she was taking the new med 3 times a day and didn't start the other medication. (Zoloft and ativan were prescribed at same time). So we question if she was taking the correct medication or taking it as prescribed. Current Medications Current Outpatient Medications on File Prior to Visit Medication Sig carvedilol (COREG) 12.5 mg tablet Take 1 tablet by mouth twice daily. citalopram hydrobromide (CELEXA) 10 mg tablet Take 0.5 tablets by mouth once daily. hydroCHLOROthiazide 25 mg tablet Take 1 tablet by mouth once daily. lisinopril (ZESTRIL) 20 mg tablet Take 1 tablet by mouth once daily. meclizine (ANTIVERT) 12.5 mg tab Take 1 tablet by mouth three times daily. (Patient taking differently: Take 12.5 mg by mouth two times a day.) omeprazole (PRILOSEC) 20 mg capsule Take 1 capsule by mouth once daily. Take 30 minutes before breakfast. No current facility-administered medications on file prior to visit. Social History Social History Tobacco Use Smoking status: Never Smokeless tobacco: Never Vaping Use Vaping Use: Never used Substance Use Topics Alcohol use: No Drug use: No Review of Symptoms REVIEW OF SYSTEMS GENERAL: No weight loss, malaise or fevers NECK: Negative for lumps, goiter, pain and significant neck swelling RESPIRATORY: Negative for cough, hemoptysis, wheezing, COPD, dyspnea or shortness of breath CARDIOVASCULAR: Negative for chest pain, increased leg swelling, hypertension, CHF or palpitations GI: No nausea, vomiting, or diarrhea and No heartburn or reflux symptoms : No history of dysuria, frequency or blood. PSYCH: family feels she is improved but would like to try a increased dose of the celexa. ENDOCRINE: Negative for cold or heat intolerance, polyuria, polydipsia and goiter NEURO: No history of headaches, syncope, paralysis, seizures or tremors EXAM: BP 120/76 Pulse 60 Resp 14 Wt 66.2 kg (146 lb) BMI 26.70 kg/m Last 5 Encounter Wt Readings: Date: Wt: 03/22/2023 65.8 kg (145 lb) 03/22/2023 66.2 kg (146 lb) 02/20/2023 65.8 kg (145 lb) 11/23/2022 62.7 kg (138 lb 3.2 oz) 11/15/2022 63.5 kg (140 lb) General Appearance: Well appearing, alert, in no acute distress, well-hydrated, well nourished.. Neck: Supple, no adenopathy; thyroid symmetric, normal size, no bruits. Lungs: Lungs clear to auscultation. No wheezing, rhonchi, rales.. Heart: RRR without murmur, gallop, or rubs. No ectopy. Abdomen: Normal abdominal exam, Abdomen soft, non-tender. Bowel sounds normal. No masses, organomegaly. Extremities: No deformities, edema, skin discoloration, Good capillary refill. . Musculoskeletal: Muscular strength intact. Peripheral Pulses: Normal. Neurologic: Gait normal. Sensation grossly intact.. Health Maintenance List Influenza Vaccine(1) due on 02/08/2023 Covid-19 Vaccine(2022- season) due on 02/08/2023 DTaP,Tdap,Td Vaccine(1 - Tdap) due on 09/21/2023 Shingrix Vaccine(1 of 2) due on 09/21/2023 Diabetes Screening due on 03/14/2026 Bone Density Screening Completed Advance Directive Discussion Completed Pneumococcal Vaccine: 65+ Completed HPV Vaccine Aged Out Data reviewed Component Latest Ref Rng & Units 08/29/2022 02/20/2023 03/14/2023 03/22/2023 WBC 3.70 - 11.00 k/uL 9.70 8.66 RBC 3.90 - 5.20 m/uL 4.13 3.87 (L) Hemoglobin 11.5 - 15.5 g/dL 13.4 12.5 Hematocrit 36.0 - 46.0 % 38.5 34.6 (L) MCV 80.0 - 100.0 fL 93.2 89.4 MCH 26.0 - 34.0 pg 32.4 32.3 MCHC 30.5 - 36.0 g/dL 34.8 36.1 (H) RDW-CV 11.5 - 15.0 % 12.7 12.0 Platelet Count 150 - 400 k/uL 314 288 MPV 9.0 - 12.7 fL 10.6 9.2 Neut% % 70.7 66.6 Abs Neut (ANC) 1.45 - 7.50 k/uL 6.86 5.76 Lymph% % 16.4 18.1 Abs Lymph 1.00 - 4.00 k/uL 1.59 1.57 [place]% % 9.9 11.0 Abs [place] <0.87 k/uL 0.96 (H) 0.95 (H) Eosin% % 1.9 3.1 Abs Eosin <0.46 k/uL 0.18 0.27 Baso% % 0.6 1.0 Abs Baso <0.11 k/uL 0.06 0.09 Immature Gran % % 0.5 0.2 IMMATURE GRANS (ABS) <0.10 k/uL 0.05 <0.03 NRBC /100 WBC 0.0 0.0 Absolute nRBC <0.01 k/uL <0.01 <0.01 DTYPE Auto Auto Protein, Total 6.3 - 8.0 g/dL 7.4 Albumin 3.9 - 4.9 g/dL 4.3 4.5 Calcium 8.5 - 10.2 mg/dL 10.4 (H) 10.3 (H) Bilirubin, Total 0.2 - 1.3 mg/dL 0.7 Alkaline Phosphatase 34 - 123 U/L 57 AST 13 - 35 U/L 24 ALT 7 - 38 U/L 17 Glucose 74 - 99 mg/dL 104 (H) 106 (H) BUN 7 - 21 mg/dL 15 12 Creatinine 0.58 - 0.96 mg/dL 1.21 (H) 1.16 (H) Sodium 136 - 144 mmol/L 128 (L) 127 (L) Potassium 3.7 - 5.1 mmol/L 4.1 3.8 Chloride 97 - 105 mmol/L 94 (L) 95 (L) CO2 22 - 30 mmol/L 24 21 (L) Anion Gap 9 - 18 mmol/L 10 11 eGFR >=60 mL/min/1.73m 45 (L) 47 (L) Total Cholesterol, Nonfasting <200 mg/dL 171 179 Triglycerides, Nonfasting <150 mg/dL 109 108 HDL Cholesterol, Nonfasting >39 mg/dL 52 55 LDL Cholesterol, Nonfasting <100 mg/dL 97 102 (H) Non HDL Cholesterol, Nonfasting <130 mg/dL 119 124 VLDL Cholesterol, Nonfasting <30 mg/dL 22 22 Total Chol/HDL Ratio, Nonfasting <5.10 mg/dL 3.29 3.25 LDL/HDL Ratio, Nonfasting <2.54 mg/dL 1.87 1.85 Hemoglobin A1C 4.3 - 5.6 % 5.5 5.3 Estimated Average Glucose mg/dL 111 105 Vit D1,25 Dihydroxy 19.9 - 79.3 pg/mL 61.3 Magnesium 1.7 - 2.3 mg/dL 1.4 (L) A/P ASSESSMENT/PLAN: 1. Essential hypertension - ICD9: 401.9, ICD10: I10 (primary diagnosis) - Controlled - Continue current medications - Recommend home blood pressure monitoring, to bring results to next visit - Encouraged sodium restriction, DASH or Mediterranean diet - Recommend regular aerobic exercise 2. Mixed hyperlipidemia - ICD9: 272.2, ICD10: E78.2 - Controlled - Counseled on healthy diet and regular exercise 3. Elevated fasting blood sugar - ICD9: 790.21, ICD10: R73.01 - controlled with diet. 4. GERD without esophagitis - ICD9: 530.81, ICD10: K21.9 - Continue treatment with Prilosec 20 mg QD 5. Stage 3a chronic kidney disease (HCC) - ICD9: 585.3, ICD10: N18.31 - discussed hydration and avoiding NSAID's 6. Carotid stenosis, asymptomatic, bilateral - ICD9: 433.10, 433.30, ICD10: I65.23 - cont current Tx. 7. Iron deficiency anemia, unspecified iron deficiency anemia type - ICD9: 280.9, ICD10: D50.9 - labs stable 8. Malignant neoplasm of colon, unspecified part of colon (HCC) - ICD9: 153.9, ICD10: C18.9 - cont f/u with Surgery 9. Nonruptured cerebral aneurysm - ICD9: 437.3, ICD10: I67.1 - management per Neurosurgery 10. Grief reaction - ICD9: 309.0, ICD10: F43.21 Increase - CITALOPRAM to 20 MG TABLET a day 11. Hypomagnesemia - ICD9: 275.2, ICD10: E83.42 - patient to go to taking Mg Oxide 250 mg twice a day. Requested Prescriptions Signed Prescriptions Disp Refills citalopram (CELEXA) 20 mg tablet 90 tablet 1 Sig: Take 1 tablet by mouth once daily. carvedilol (COREG) 12.5 mg tablet 180 tablet 1 Sig: Take 1 tablet by mouth two times a day. hydroCHLOROthiazide 25 mg tablet 90 tablet 1 Sig: Take 1 tablet by mouth once daily. lisinopril (ZESTRIL) 20 mg tablet 90 tablet 1 Sig: Take 1 tablet by mouth once daily. Magnesium Oxide 250 mg magnesium tab Sig: Take 1 tablet by mouth two times a day. F/u 6 months extensive. Check CMP, Lipid, UA, A1c, CBC, Iron, Mg, B12, TSH Chencho Urbina MD documented in this encounter [facility] 03-20-2023 Note HNO ID: [id number] Author: Marcell Gaines RT(R) Service: Nuclear Medicine Author Type: Technologist Type: Progress Notes Filed: 03/20/2023 12:59 PM Note Text: RADIOLOGY SERVICE PROGRESS NOTE SERVICE DATE: 03/20/2023 SERVICE TIME: 12:58 PM PATIENT IDENTITY VERIFICATION COMPLETED USING TWO (2) STANDARD IDENTIFIERS: Name and Date of confirmed by patient verbally FALL SCREENING: Has the patient had 2 falls in the last year or 1 fall with injury or currently using an Ambulatory Assistive Device (Walker, Cane, Wheelchair, Crutches, etc.)? No PATIENT GENDER DATA: .female : No ALLERGIES: Reviewed and unchanged MEDICATIONS REVIEWED: Not applicable PATIENT RELEVANT IMPLANT DATA REVIEWED: Not Applicable CREATININE: Creatinine Date Value Ref Range Status 03/14/2023 1.16 (H) 0.58 - 0.96 mg/dL Final 02/20/2023 1.20 (H) 0.58 - 0.96 mg/dL Final 09/05/2022 1.22 (H) 0.58 - 0.96 mg/dL Final Estimated Glomerular Filtration Rate Date Value Ref Range Status 03/14/2023 47 (L) >=60 mL/min/1.73m? Final Comment: Estimated Glomerular Filtration Rate (eGFR) is calculated using the 2020 CKD-EPI creatinine equation. This equation utilizes serum creatinine, sex, and age as parameters. The creatinine assay has traceable calibration to isotope dilution-mass spectrometry. Refer to KDIGO guidelines for clinical interpretation. In patients with unstable renal function, e.g. those with acute kidney injury, the eGFR may not accurately reflect actual GFR. eGFR- Date Value Ref Range Status 04/10/2021 42 Final P.O.C.T. RESULTS: N/A March 20, [address] PERFORMED: No IV SITE: Ambulatory: A peripheral IV was started in the Right antecubital site with a Angio cath: 22 gauge. POST EXAM PIV STATUS: Discontinued PROCEDURE TYPE: NM Parathyroid: 251 microcurries of Nal 123 capsules was administered orally at 7:56. 31.3 mCi of Tc99m Sestamibi was injected IV at 12:28. PATIENT DISCHARGED TO: Ambulatory patient, left NH department area. A Diagnostic radioactive procedure has taken place, with no further precautions necessary other than routine body substance precautions. More information regarding radiation safety can be found using this link: [email or web address] SIGNATURE: RT Lance(R) PATIENT NAME: Leonor Pal DATE: March 20, 2023 TIME: 12:58 PM PAGER/CONTACT #: [facility] 02-20-2023 History of Present illness Narrative Endocrinology Metabolism [place] [facility] [place] aMrge Hayes M.D. Section of Endocrine Surgery and Advanced Laparoscopic Surgery [address] [place] [address], [address] [address] ENDOCRINE SURGERY NEW CONSULTATION NAME: Leonor Pal [facility] NO: [id number] : 1940 Surgeon: Dr. Marge Hayes REFERRING PROVIDER: Chencho Urbina [address] [place] [id number] The patient was referred by the above provider and my findings and recommendations will be communicated by way of the shared medical record. HPI: The patient was evaluated today for a consultation regarding a left neck mass. She was found to have a thyroid nodule on carotid ultrasound. Subsequent thyroid ultrasound and neck CT showed nodule that was possibly separate from the thyroid gland. She has been referred for further assessment. She is breathing well and no voice changes. She does feel like food gets stuck on the right side. This is associated with sour acidic taste in her mouth. History of head and neck radiation: No Family history of thyroid cancer: No History of previous thyroid biopsy or any cervical operation: No PMH: PAST MEDICAL HISTORY Diagnosis Date Advance directive discussed with patient 09/01/2021 Discussed 08/2021 Benign paroxysmal positional vertigo 01/14/2019 Carotid stenosis, asymptomatic, bilateral 07/21/2018 US 07/2018: less than 20% asim. Cholecystitis, unspecified Chronic right-sided low back pain Chronic right-sided thoracic back pain 07/17/2018 Colon Cancer(cecum) 09/29/[address] 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 Esparza Facial basal cell cancer 01/12/2019 Left nasal 12/[address] Esparza Family history of early CAD 01/14/2018 GERD without esophagitis HH (hiatus hernia) 09/29/2009 Iron deficiency anemia, unspecified Living will on file 09/01/2021 DPA: Kervin () Living will on file at physician's office 09/01/2021 DPA: Kervin () Low blood magnesium 01/14/2019 Malignant neoplasm of colon (HCC) s/p right hemicolectomy (Dr. Alan Davila) Medicare annual wellness visit, subsequent 07/17/2018 Medicare Part B:11/08/2004 Last done: 07/17/2018 Mixed hyperlipidemia 01/03/2007 Personal history of colon cancer 12/21/2013 s/p right hemicolectomy Sciatica 06/28/2011 Seasonal allergic rhinitis Second hand smoke exposure 01/14/2018 Sensory hearing loss, bilateral 01/21/2018 Situational depression 09/20/2022 Squamous cell skin cancer 09/21/2021 Neck: removed 09/2021 Stage 3a chronic kidney disease (HCC) 01/14/2018 Thyroid nodule 09/30/2022 Tinnitus of left ear 01/21/[address] Carrero PSH: PAST SURGICAL HISTORY Procedure Laterality Date 2D ECHO (EXEP) 05/01/2017 65%, with mild diast dysf and 1+ AL. CARDIAC STRESS TEST 05/01/2017 negative CHOLECYSTECTOMY 1985 Cholecystectomy COLONOSCOPY 07/13/2016 Repeat 07/2021 COLONOSCOPY FLX DX W/COLLJ SPEC WHEN PFRMD 12/22/2010 repeat in -2013 COLONOSCOPY FLX DX W/COLLJ SPEC WHEN PFRMD 01/08/2014 per [facility] repeat in 3-5 years COLONOSCOPY W/BIOPSY SINGLE/MULTIPLE 09/29/2009 Cecal carcinoma EGD TRANSORAL BIOPSY SINGLE/MULTIPLE 09/29/2009 Small HH HEART CATHETERIZATION 07/30/2018 normal coronaries PAST SURGICAL HISTORY OF 10/2009 Rt hemicolectomy Medications: Current Outpatient Medications on File Prior to Visit Medication Sig citalopram hydrobromide (CELEXA) 10 mg tablet Take 0.5 tablets by mouth once daily. meclizine (ANTIVERT) 12.5 mg tab Take 1 tablet by mouth three times daily. lisinopril (ZESTRIL) 20 mg tablet Take 1 tablet by mouth once daily. carvedilol (COREG) 12.5 mg tablet Take 1 tablet by mouth twice daily. hydroCHLOROthiazide 25 mg tablet Take 1 tablet by mouth once daily. omeprazole (PRILOSEC) 20 mg capsule Take 1 capsule by mouth once daily. Take 30 minutes before breakfast. Magnesium Oxide 250 mg magnesium tab Take 1 tablet by mouth once daily. multivitamin/iron/folic acid (CENTRUM WOMEN ORAL) Take by mouth. TYLENOL ARTHRITIS 650 MG TAB one tablet as needed No current facility-administered medications on file prior to visit. All: ALLERGIES Allergen Reactions Penicillins Swelling, Myalgia Penecillin [Other] Unknown Vioxx [Rofecoxib] Unknown Zoloft [Sertraline] GI Upset Patient thought it made her feel sick, however she stated she was taking the new med 3 times a day and didn't start the other medication. (Zoloft and ativan were prescribed at same time). So we question if she was taking the correct medication or taking it as prescribed. SH: Social History Tobacco Use Smoking status: Never Smokeless tobacco: Never Vaping Use Vaping Use: Never used Substance Use Topics Alcohol use: No Drug use: No FH: Pertinent history above; otherwise, non-contributory REVIEW OF SYSTEMS: GENERAL: Well-appearing, no malaise or fevers Dyspnea:No. Dysphagia:No. Pressure symptoms:No. PHYSICAL EXAM: On physical exam, Leonor Pal is well appearing, alert, and oriented and appears euthyroid. On inspection, the skin over the anterior neck is smooth, no mass is visualized. Palpation revealed no thyroid enlargement. No lymphadenopathy was palpated on either side of the neck. ULTRASOUND EXAMINATION: Ultrasound examination was performed in the office today. This demonstrated a 1.3 cm cystic nodule involving the right thyroid lobe. Inferior to the lower pole of the thyroid was a 1.88X1.33X2.53 cm cystic structure with a septate that was suspicious for being a parathyroid cyst. No worrisome lymphadenopathy was appreciated in either bilateral central neck or lateral jugular chain compartments. A fine needle aspiration biopsy performed from the left neck cyst under ultrasound guidance using a 22 G needle in 2 passes. Also sent it for PTH assay. UNIVERSAL PROTOCOL / SAFETY CHECKLIST Procedure to be Performed: left thyroid FNA Sign In: A Moment of CARE was completed. Personnel directly involved with the procedure wore the appropriate PPE (Personal Protective Equipment). Patient/Surrogate Stated/Verified: PATIENT VERIFIED(optional for EMERGENT procedures): Patient name, Date of , Relevant allergies, and The intended procedure Time Out Communication: Intended patient and procedure match the source documents. Consent documented and matches the intended procedure. Sign Out: SIGN OUT (optional for EMERGENT procedures): All specimen containers correctly labeled. 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 PLAN: Will await biopsy results to finalize decision. Will also send labs to rule out hyperparathyroidism. I appreciate being involved in the care of your patient, and please feel free to contact me should you have additional questions. I spent a total of 45 minutes on the date of the service which included preparing to see the patient, [id number] patient care, completing clinical documentation, obtaining and/or reviewing separately obtained history, performing a medically appropriate examination, counseling and educating the patient/family/caregiver, ordering medications, tests, or procedures, communicating with other HCPs (not separately reported), independently interpreting results (not separately reported), communicating results to the patient/family/caregiver, and care coordination (not separately reported). Sincerely, Marge Hayes MD 02/20/2023 CC: Chencho Urbina [address] [facility] [address] documented in this encounter [facility] 02-20-2023 Instructions Kannan Zepeda Ma - 02/20/2023 11:10 AM EDT Thank you for choosing the [facility] Department of Endocrinology, Diabetes and Metabolism. Did you know that you need to call 48 hours in advance of your scheduled visit, if you are unable to make your appointment? The Endocrinology and Metabolism [place] thanks you for your commitment, because patients not showing to their appointment results in a lost opportunity for patients to receive [place] [facility] care at the [facility]. To Cancel an appointment, please choose one of the following: - Call the Appointment Call Center at [phone] - From [employer], Go to Appointments - Cancel Appts If cancelling, consider your need to reschedule to prevent further delays in your care. To Schedule an appointment, please choose one of the following: - Call the Appointment Call Center at [phone] - From [employer], Go to Appointments - Request an Appt documented in this encounter [facility] 12-17-2022 History of Present illness Narrative Jonny Suero MD Department of Orthopaedics Orthopaedics [address] [facility] [address] Dept: [phone] Dept December 17, 2022 CHIEF COMPLAINT: New and Pain of the Right Hand and New and Pain of the Left Hand HPI AMB ROOMING INTAKE FLOWSHEET DATA Pain Pain Level: 3 Pain Location: (bilateral hands/fingers) Description: (varies by activity) Frequency: Intermittent Intervention/Comfort measure: Cold Patient presents with: Right Hand - New, Pain Left Hand - New, Pain Swelling in fingers ongoing several months. She reports pain with ADLs. X rays done 11/15/22 in [facility]. ASSESSMENT: M19.041, M19.042 Primary osteoarthritis of both hands (primary encounter diagnosis) M20.002 Unspecified deformity of left finger(s) PLAN: Generalized OA of the hands. We reviewed individual joints and the surgical possibilities if any one of them were to warrant. Otherwise, treatment for OA is medication, modalities, OT, focal injection if indicated. FOLLOW UP INSTRUCTIONS: As needed Ms. Leonor Pal was advised as to contrast therapies and/or to take analgesics/anti-inflammatories as needed and all contraindications were reviewed. OBJECTIVE: Ms. Leonor Pal is a pleasant 82 year old in no apparent distress. Gen:There were no vitals taken for this visit. nl development, non obese, no deformities ENT: Normocephalic, normal hearing, moist mucosa CV: Pulses:Radial= 2+ and symmetric, capillary refill < 2 secs, no peripheral edema/varicosities Skin: no rash, bruising or lesions. Good turgor. Psych: cooperative and appropriate, alert and oriented x 3, good mood and affect. Musculoskeletal: Multiple joints in each hand consisent with OA. Swelling, limited motion, some painful, others not. NV exam intact. IMAGING: IMPRESSION: Severe degenerative changes of the fingers. Decision Science Analyst: PSCB Transcribe Date/Time: Nov 16 2022 5:24P Dictated by : GEETHA LI MD This examination was interpreted and the report reviewed and electronically signed by: GEETHA LI MD on Nov 16 2022 5:24PM EST Results-Findings * * *Final Report* * * DATE OF EXAM: Nov 15 2022 12:56PM WOX [id number] - XR HAND 3V PA/LAT/OBL ASIM / PROCEDURE REASON: multiple diagnoses * * * * Physician Interpretation * * * * EXAMINATION: XR HAND 3V PA/LAT/OBL ASIM HISTORY: PT STS IN FOR PAIN TO LEFT HAND 3RD DIGIT. PAIN TO RT HAND RING FINGER. NO PRV SX TO EITHER. Swelling of left middle finger Pain involving joint of finger of right hand . TECHNIQUE: XR HAND 3V PA/LAT/OBL ASIM Laterality: BILATERAL Number of different views (projections): 3 M: XB_1 COMPARISON: RESULT: Severe interphalangeal degenerative changes of the finger DIP joint and less so at the PIP joints. Mild thumb interphalangeal degenerative changes. There are severe degenerative changes at the first CMC joints bilaterally. No chondrocalcinosis. No acute fracture or dislocation. There are no bony erosions. Supporting Subjective Information Below: Past Medical History: PAST MEDICAL HISTORY Diagnosis Date Advance directive discussed with patient 09/01/2021 Discussed 08/2021 Benign paroxysmal positional vertigo 01/14/2019 Carotid stenosis, asymptomatic, bilateral 07/21/2018 US 07/2018: less than 20% asim. Cholecystitis, unspecified Chronic right-sided low back pain Chronic right-sided thoracic back pain 07/17/2018 Colon Cancer(cecum) 09/29/[address] 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 Esparza Facial basal cell cancer 01/12/2019 Left nasal 12/[address] Esparza Family history of early CAD 01/14/2018 GERD without esophagitis HH (hiatus hernia) 09/29/2009 Iron deficiency anemia, unspecified Living will on file 09/01/2021 DPA: Kervin () Living will on file at physician's office 09/01/2021 DPA: Kervin () Low blood magnesium 01/14/2019 Malignant neoplasm of colon (HCC) s/p right hemicolectomy (Dr. Alan Davila) Medicare annual wellness visit, subsequent 07/17/2018 Medicare Part B:11/08/2004 Last done: 07/17/2018 Mixed hyperlipidemia 01/03/2007 Personal history of colon cancer 12/21/2013 s/p right hemicolectomy Sciatica 06/28/2011 Seasonal allergic rhinitis Second hand smoke exposure 01/14/2018 Sensory hearing loss, bilateral 01/21/2018 Situational depression 09/20/2022 Squamous cell skin cancer 09/21/2021 Neck: removed 09/2021 Stage 3a chronic kidney disease (HCC) 01/14/2018 Thyroid nodule 09/30/2022 Tinnitus of left ear 01/21/[address] Carrero Past Surgical History: PAST SURGICAL HISTORY Procedure Laterality Date 2D ECHO (EXEP) 05/01/2017 65%, with mild diast dysf and 1+ AL. CARDIAC STRESS TEST 05/01/2017 negative CHOLECYSTECTOMY 1985 Cholecystectomy COLONOSCOPY 07/13/2016 Repeat 07/2021 COLONOSCOPY FLX DX W/COLLJ SPEC WHEN PFRMD 12/22/2010 repeat in COLONOSCOPY FLX DX W/COLLJ SPEC WHEN PFRMD 01/08/2014 per [facility] repeat in 3-5 years COLONOSCOPY W/BIOPSY SINGLE/MULTIPLE 09/29/2009 Cecal carcinoma EGD TRANSORAL BIOPSY SINGLE/MULTIPLE 09/29/2009 Small HH HEART CATHETERIZATION 07/30/2018 normal coronaries PAST SURGICAL HISTORY OF 10/2009 Rt hemicolectomy Family History: FAMILY HISTORY Problem Relation Age of Onset Cancer Sister Metastatic cancer (lung and brain; ?primary); 2007 Social History: Social History Tobacco Use Smoking status: Never Smokeless tobacco: Never Vaping Use Vaping Use: Never used Substance Use Topics Alcohol use: No Drug use: No Medications: Current Outpatient Medications Medication Sig citalopram hydrobromide (CELEXA) 10 mg tablet Take 0.5 tablets by mouth once daily. meclizine (ANTIVERT) 12.5 mg tab Take 1 tablet by mouth three times daily. lisinopril (ZESTRIL) 20 mg tablet Take 1 tablet by mouth once daily. carvedilol (COREG) 12.5 mg tablet Take 1 tablet by mouth twice daily. hydroCHLOROthiazide 25 mg tablet Take 1 tablet by mouth once daily. omeprazole (PRILOSEC) 20 mg capsule Take 1 capsule by mouth once daily. Take 30 minutes before breakfast. Magnesium Oxide 250 mg magnesium tab Take 1 tablet by mouth once daily. multivitamin/iron/folic acid (CENTRUM WOMEN ORAL) Take by mouth. TYLENOL ARTHRITIS 650 MG TAB one tablet as needed No current facility-administered medications for this visit. Allergies: Penecillin [Other], Vioxx [Rofecoxib], and Zoloft [Sertraline] ROS: General (negative for fatigue, malaise, weight loss/gain) HEENT (negative for headache, earache, recent vision changes, sinus pain, sore throat) Respiratory (no recent shortness of breath, hemoptysis) CV (negative for chest tightness, palpitations) Musculoskeletal (see HPI) Psych (no depression, anxiety) REFERRING PHYSICIAN: Consultation requested by Elisa Doherty for an opinion regarding bilateral hand OA. My final recommendations will be communicated back to the requesting physician by way of shared Medical record or letter to requesting physician via US mail. Elisa Doherty [address] [facility] [address] Chencho Urbina MD [address] [facility] [address] Jonny Suero MD documented in this encounter [facility] 11-23-2022 History of Present illness Narrative Chief Complaint Patient presents with: 1 week f/u: Left middle finger swelling-worse since GLADIS HPI Leonor Pal is a 82 year old female who presents here today for Above Complaints.. Patient presents for follow up for finger swelling. Patient denies painful Past medical history, appointments, medications, allergies reviewed. Previous Medical History PAST MEDICAL HISTORY Diagnosis Date Advance directive discussed with patient 09/01/2021 Discussed 08/2021 Benign paroxysmal positional vertigo 01/14/2019 Carotid stenosis, asymptomatic, bilateral 07/21/2018 US 07/2018: less than 20% asim. Cholecystitis, unspecified Chronic right-sided low back pain Chronic right-sided thoracic back pain 07/17/2018 Colon Cancer(cecum) 09/29/[address] 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 Esparza Facial basal cell cancer 01/12/2019 Left nasal 12/[address] Esparza Family history of early CAD 01/14/2018 GERD without esophagitis HH (hiatus hernia) 09/29/2009 Iron deficiency anemia, unspecified Living will on file 09/01/2021 DPA: Kervin () Living will on file at physician's office 09/01/2021 DPA: Kervin () Low blood magnesium 01/14/2019 Malignant neoplasm of colon (HCC) s/p right hemicolectomy (Dr. Alan Davila) Medicare annual wellness visit, subsequent 07/17/2018 Medicare Part B:11/08/2004 Last done: 07/17/2018 Mixed hyperlipidemia 01/03/2007 Personal history of colon cancer 12/21/2013 s/p right hemicolectomy Sciatica 06/28/2011 Seasonal allergic rhinitis Second hand smoke exposure 01/14/2018 Sensory hearing loss, bilateral 01/21/2018 Situational depression 09/20/2022 Squamous cell skin cancer 09/21/2021 Neck: removed 09/2021 Stage 3a chronic kidney disease (HCC) 01/14/2018 Thyroid nodule 09/30/2022 Tinnitus of left ear 01/21/[address] Carrreo Previous Surgical History PAST SURGICAL HISTORY Procedure Laterality Date 2D ECHO (EXEP) 05/01/2017 65%, with mild diast dysf and 1+ AL. CARDIAC STRESS TEST 05/01/2017 negative CHOLECYSTECTOMY 1985 Cholecystectomy COLONOSCOPY 07/13/2016 Repeat 07/2021 COLONOSCOPY FLX DX W/COLLJ SPEC WHEN PFRMD 12/22/2010 repeat in COLONOSCOPY FLX DX W/COLLJ SPEC WHEN PFRMD 01/08/2014 per repeat in 3-5 years COLONOSCOPY W/BIOPSY SINGLE/MULTIPLE 09/29/2009 Cecal carcinoma EGD TRANSORAL BIOPSY SINGLE/MULTIPLE 09/29/2009 Small HH HEART CATHETERIZATION 07/30/2018 normal coronaries PAST SURGICAL HISTORY OF 10/2009 Rt hemicolectomy Family History FAMILY HISTORY Problem Relation Age of Onset Cancer Sister Metastatic cancer (lung and brain; ?primary); 2007 Patient Allergies ALLERGIES Allergen Reactions Penecillin [Other] Unknown Vioxx [Rofecoxib] Unknown Zoloft [Sertraline] GI Upset Patient thought it made her feel sick, however she stated she was taking the new med 3 times a day and didn't start the other medication. (Zoloft and ativan were prescribed at same time). So we question if she was taking the correct medication or taking it as prescribed. Current Medications Current Outpatient Medications on File Prior to Visit Medication Sig citalopram hydrobromide (CELEXA) 10 mg tablet Take 0.5 tablets by mouth once daily. meclizine (ANTIVERT) 12.5 mg tab Take 1 tablet by mouth three times daily. lisinopril (ZESTRIL) 20 mg tablet Take 1 tablet by mouth once daily. carvedilol (COREG) 12.5 mg tablet Take 1 tablet by mouth twice daily. hydroCHLOROthiazide 25 mg tablet Take 1 tablet by mouth once daily. omeprazole (PRILOSEC) 20 mg capsule Take 1 capsule by mouth once daily. Take 30 minutes before breakfast. Magnesium Oxide 250 mg magnesium tab Take 1 tablet by mouth once daily. multivitamin/iron/folic acid (CENTRUM WOMEN ORAL) Take by mouth. TYLENOL ARTHRITIS 650 MG TAB one tablet as needed No current facility-administered medications on file prior to visit. Social History Social History Tobacco Use Smoking status: Never Smokeless tobacco: Never Vaping Use Vaping Use: Never used Substance Use Topics Alcohol use: No Drug use: No Review of Symptoms REVIEW OF SYSTEMS SEE HPI EXAM: BP 120/68 Pulse 61 Temp 36.8 C (98.2 F) (Right Tympanic) Resp 16 Wt 62.7 kg (138 lb 3.2 oz) SpO2 98% BMI 24.48 kg/m General Appearance: Well appearing, alert, in no acute distress, well-hydrated, well nourished.. Extremities: Positive findings: joint location: on left pip(s) swelling, painful movement, and loss of ROM, on left dip(s) swelling, painful movement, and loss of ROM. Health Maintenance List DTAP,TDAP,TD(1 - Tdap) due on 09/21/2023 SHINGRIX VACCINE(1 of 2) due on 09/21/2023 DIABETES SCREEN due on 09/05/2025 BONE DENSITY Completed INFLUENZA Completed ADVANCE DIRECTIVE DISCUSSION Completed COVID-19 VACCINE Completed PNEUMOCOCCAL: 65+ Completed ASSESSMENT/PLAN: 1. Unspecified deformity of left finger(s) - ICD9: 736.20, ICD10: M20.002 - CONSULT TO ORTHOPAEDICS Elisa Doherty APRN.SITE ADMINISTRATOR documented in this encounter [facility] 11-13-2022 History of Present illness Narrative [facility] Initial Visit Leonor Pal [facility]#: [id number] Date of Service: 11/13/2022 Primary Care Provider: Chencho Urbina MD [address] [facility] [address] The patient was referred by Chencho Urbina MD for opinion regarding brain aneurysm. I will provide a written report of my findings to the referring through letter, e communication, or epic. OUTPATIENT CONSULTATION Chief complaint: Incidental brain aneurysm History of present illness: Ms. Pal is an 82-year-old female, who presents for evaluation of an incidentally discovered brain aneurysm. The patient had screening carotid ultrasound, which raised suspicion of a thyroid cyst. Thyroid ultrasound was ordered, followed by CT of the neck to evaluate the thyroid. Incidentally, the neck CT also included images of the brain, which raised suspicion of an unruptured brain aneurysm. The patient otherwise reports occasional mild headaches. She reports no neurologic symptoms or deficits otherwise. There is no family history of brain aneurysm or hemorrhage. The patient does not smoke. Her blood pressure is controlled with medications. She presents today with her family to discuss available management options. Hypertension Y Coronary Artery Disease NA Diabetes NA Obesity NA Dyslipidemia NA Tobacco Use (Please Update Smoking History) NA Stroke NA Intracranial Aneurysm NA Past Medical History: ACTIVE PROBLEM LIST Chronic Right-Sided Low Back Pain Disorder of bone and cartilage, unspecified Diverticulitis of colon (without mention of hemorrhage)(562.11) Seasonal Allergic Rhinitis Gerd Without Esophagitis Essential Hypertension Elevated Fasting Blood Sugar Mixed Hyperlipidemia Colon Cancer(cecum) Hh (Hiatus Hernia) Sciatica Malignant Neoplasm of Colon (Hcc) Personal History of Colon Cancer Iron Deficiency Anemia, Unspecified Encounter for Screening Mammogram for Breast Cancer Stage 3a Chronic Kidney Disease (Hcc) Second Hand Smoke Exposure Family History of Early Cad Sensory Hearing Loss, Bilateral Tinnitus of Left Ear Medicare Annual Wellness Visit, Subsequent Chronic Right-Sided Thoracic Back Pain Carotid Stenosis, Asymptomatic, Bilateral Facial Basal Cell Cancer Benign Paroxysmal Positional Vertigo Low Blood Magnesium Acute Midline Low Back Pain With Right-Sided Sciatica Medication Management Living Will On File At Physician's Office Advance Directive Discussed With Patient Squamous Cell Skin Cancer Situational Depression Thyroid Nodule Neck Mass PAST SURGICAL HISTORY Procedure Laterality Date 2D ECHO (EXEP) 05/01/2017 65%, with mild diast dysf and 1+ AL. CARDIAC STRESS TEST 05/01/2017 negative CHOLECYSTECTOMY 1985 Cholecystectomy COLONOSCOPY 07/13/2016 Repeat 07/2021 COLONOSCOPY FLX DX W/COLLJ SPEC WHEN PFRMD 12/22/2010 repeat in COLONOSCOPY FLX DX W/COLLJ SPEC WHEN PFRMD 01/08/2014 per repeat in 3-5 years COLONOSCOPY W/BIOPSY SINGLE/MULTIPLE 09/29/2009 Cecal carcinoma EGD TRANSORAL BIOPSY SINGLE/MULTIPLE 09/29/2009 Small HH HEART CATHETERIZATION 07/30/2018 normal coronaries PAST SURGICAL HISTORY OF 10/2009 Rt hemicolectomy Allergies: Penecillin [Other], Vioxx [Rofecoxib], and Zoloft [Sertraline] Medications: Current Outpatient Medications Medication Sig cephALEXin (KEFLEX) 500 mg capsule Take 1 capsule by mouth three times daily. citalopram hydrobromide (CELEXA) 10 mg tablet Take 0.5 tablets by mouth once daily. meclizine (ANTIVERT) 12.5 mg tab Take 1 tablet by mouth three times daily. lisinopril (ZESTRIL) 20 mg tablet Take 1 tablet by mouth once daily. carvedilol (COREG) 12.5 mg tablet Take 1 tablet by mouth twice daily. hydroCHLOROthiazide 25 mg tablet Take 1 tablet by mouth once daily. omeprazole (PRILOSEC) 20 mg capsule Take 1 capsule by mouth once daily. Take 30 minutes before breakfast. Magnesium Oxide 250 mg magnesium tab Take 1 tablet by mouth once daily. multivitamin/iron/folic acid (CENTRUM WOMEN ORAL) Take by mouth. TYLENOL ARTHRITIS 650 MG TAB one tablet as needed No current facility-administered medications for this visit. Social History Tobacco Use Smoking status: Never Smokeless tobacco: Never Vaping Use Vaping Use: Never used Substance Use Topics Alcohol use: No Drug use: No Illicit Drug Use: no Family History: Subarachnoid hemorrhage: None Aneurysms: None Stroke: None Vascular malformations: None Other neurologic diseases: None Review of Systems Constitutional: Negative Eyes: Negative Hent: Negative Cardiovascular: Negative Respiratory: Negative GI: Negative : Negative Endocrine: Negative Musculoskeletal: Negative Integumentary: Negative Heme/Lymph: Negative Allergy/Immunologic: Negative Neurologic: Negative Psychiatric: Negative Patient's Review of Systems has been reviewed with the patient and updated as appropriate. Patient Entered Questionnaires PROMIS/NeuroQoL Score Percentiles Percentiles provide an indication of how a patient's score ranks in relation to the [place] general population. > 31st percentile is within normal limits or better * < 31st percentile is at least SD worse than population, which may be clinically relevant < 16th percentile is at least 1 SD worse than population and warrants attention Depression Screening: PHQ-9 Scores: PHQ-9 Self-Harm (Item 9) Response: 0 - 9 No to Mild depression 0 - Not at all 10 - 14 Moderate depression 1 - Several Days > 15 Severe depression 2 - More than half the days 3 - Nearly every day PHYSICAL EXAMINATION BP 131/71 (BP Site: Left Arm, BP Position: Sitting, BP Cuff Size: Regular Adult) Pulse 71 Temp 36.4 C (97.6 F) (Temporal) Resp 14 Ht 160 cm (5' 3) Wt 63 kg (139 lb) SpO2 99% BMI 24.62 kg/m General: Not in acute distress, pleasant elderly female, well-developed, well-nourished Head: atraumatic, normocephalic Eyes: No scleral icterus, no conjunctival injection Neck: supple, no JVD Cardiovascular: Normal S1/S2, no murmurs, RRR Lungs: Clear to auscultation bilaterally Abdomen: Soft, nondistended, nontender Extremities: No edema, clubbing or cyanosis noted. Skin: No significant bruising or rash Neurological: Mental status: Alert, awake and oriented x3. Speech, language, attention span, memory and fund of knowledge are intact. Cranial nerves: Pupils equal, reactive. EOMI. Visual rivera full. Normal facial sensation. No facial asymmetry. Uvula midline, symmetric palatal elevation. Symmetric shoulder shrug. Tongue midline. Motor: Normal bulk, tone and strength bilaterally. No pronator drift. Sensory: Normal to soft touch and temperature bilaterally. Coordination: No dysmetria or ataxia Reflexes: Symmetric. Gait: Walks without assistance. IMAGING CT neck soft tissue October 2022: 4 mm anteriorly directed enhancing prominence from the right BETH A2 segment, likely reflecting small aneurysm. ON MY REVIEW, there is an approximately 5 mm A2 segment saccular aneurysm in the midline. Difficult to establish with side for other details due to nondedicated brain vascular imaging. Labs Total Cholesterol, Nonfasting Date Value Ref Range Status 08/29/2022 171 <200 mg/dL Final Comment: <200 mg/dL, Desirable 200-239 mg/dL, Borderline high >239 mg/dL, High HDL Cholesterol, Nonfasting Date Value Ref Range Status 08/29/2022 52 >39 mg/dL Final Comment: 40-59 mg/dL, Acceptable >59 mg/dL, High: Negative risk factor for coronary heart disease <40 mg/dL, Low: Positive risk factor for coronary heart disease LDL Cholesterol, Nonfasting Date Value Ref Range Status 08/29/2022 97 <100 mg/dL Final Comment: <100 mg/dL, Optimal 100-129 mg/dL, Near optimal/above optimal 130-159 mg/dL, Borderline high 160-189 mg/dL, High >189 mg/dL, Very high Secondary prevention optimal LDL Cholesterol levels are recommended to be < 70 mg/dL Triglycerides, Nonfasting Date Value Ref Range Status 08/29/2022 109 <150 mg/dL Final Comment: <150 mg/dL, Normal 150-199 mg/dL, Borderline high 200-499 mg/dL, High >499 mg/dL, Very high Lab Results Component Value Date HBA1C 5.5 08/29/2022 HBA1C 5.4 03/01/2022 HBA1C 5.6 08/28/2021 HBA1C 5.6 02/23/2021 HBA1C 5.6 08/19/2020 HBA1C 5.6 02/10/2020 Stroke Mechanism and Scales Cerebrovascular Disease w/o Stroke Event: Unruptured Aneurysm Modified Havelock Score: Score: 0 NIH Stroke Scale: LOC: 0 LOC Questions: 0 LOC Commands: 0 LOC Normal Gaze: 0 Visual Rivera: 0 Facial Palsy: 0 Motor Left Arm: 0 Motor Right Arm: 0 Motor Left Le Motor Right Le Limb Ataxia: 0 Sensory: 0 Language: 0 Dysarthria: 0 Extinction/Neglect: 0 Total Daily NIHSS: 0 IMPRESSION 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 Imaging demonstrates a midline anterior cerebral artery distribution 5 mm saccular aneurysm. I told the patient and her family that normally I would recommend a diagnostic cerebral angiogram for work-up and possible treatment. We discussed natural history and rupture risk of aneurysms. We talked about risks, benefits and alternatives of available management options including conservative monitoring versus endovascular or surgical treatment. However, the patient is reluctant to pursue any further work-up or treatment due to her advanced age and lack of neurologic symptoms and risk factors. She understands the risk of subarachnoid hemorrhage and stroke. Decision was made to obtain a 6-month follow-up noninvasive image to reassess the aneurysm for any changes. She was educated about signs and symptoms of stroke and subarachnoid hemorrhage, and requested to seek immediate medical attention if new symptoms develop. All questions were answered. PLAN Repeat noninvasive imaging (noncontrast MRA brain) in 6 months for follow-up. See detailed discussion above Blood pressure and vascular risk factor control Education provided Thank you very much for this consultation. Questions asked/ answered. Follow-up with results/ adherence to plan/ continued education. SIGNATURE Pablo Keyes MD November 13, 2022 CC Chencho Urbina [id number] [facility] [place] [address] documented in this encounter [facility] 10-25-2022 History of Present illness Narrative Radiology Service Progress Note DATE OF SERVICE: October 25, 2022 TIME: 4:03 PM PATIENT IDENTITY VERIFICATION COMPLETED USING TWO (2) STANDARD IDENTIFIERS: Name and Date of confirmed by patient verbally. FALL SCREENING: Has the patient had 2 falls in the last year or 1 fall with injury or currently using an Ambulatory Assistive Device (Walker, Cane, Wheelchair, Crutches, etc.)? No PATIENT GENDER DATA: Female. status: : No status: NO. PATIENT RELEVANT IMPLANT DATA REVIEWED: Yes ALLERGIES: Reviewed and unchanged CONTRAST ALLERGY: NO. EXAM: CT -CONTRAST INDUCED NEPHROPATHY RISK FACTORS: Patient age > 60 years CREATININE: Creatinine Date Value Ref Range Status 09/05/2022 1.22 (H) 0.58 - 0.96 mg/dL Final 08/29/2022 1.21 (H) 0.58 - 0.96 mg/dL Final 03/01/2022 1.49 (H) 0.58 - 0.96 mg/dL Final Estimated Glomerular Filtration Rate Date Value Ref Range Status 09/05/2022 44 (L) >=60 mL/min/1.73m Final Comment: Estimated Glomerular Filtration Rate (eGFR) is calculated using the 2020 CKD-EPI creatinine equation. This equation utilizes serum creatinine, sex, and age as parameters. The creatinine assay has traceable calibration to isotope dilution-mass spectrometry. Refer to KDIGO guidelines for clinical interpretation. In patients with unstable renal function, e.g. those with acute kidney injury, the eGFR may not accurately reflect actual GFR. eGFR- Date Value Ref Range Status 04/10/2021 42 Final P.O.C.T. RESULTS: POC done: Yes, See Lab Tab October 25, 2022 TREATMENT: N/A PERIPHERAL IV DATA: Ambulatory: A peripheral IV was started in the Left antecubital site with a Angio cath: 22 gauge. RADIOLOGY DEPARTMENT: CT; Exam(s) Completed: Neck SIGNATURE: RT Philippe(R) PATIENT NAME: Leonor Pal DATE: October 25, 2022 TIME: 4:03 PM documented in this encounter [facility] 10-22-2022 Miscellaneous Notes Patient notified and verbalized understanding Celia Aleman Cma Please let patient know her urine culture is positive. I have sent a prescription for an antibiotic. documented in this encounter [facility] 10-02-2022 Miscellaneous Notes Patient scheduled. ALICE Galloway October 02, 2022 3:31 PM Patient notified and voiced understanding. Please schedule patient for US. Lana Schwartz MA Let patient know breathing test was normal US of neck arteries shows narrowing in both arteries are stable and minimal. The thyroid shows some of her nodules maybe larger and want to get a thyroid US for better evaluation. Order placed. documented in this encounter [facility] 09-28-2022 History of Present illness Narrative PULM FUNCTION SMARTBLOCK: Provider: Chencho Urbina MD Assisting Tech: DORY Chi Spirometry w/BD: 1 documented in this encounter [facility] 09-24-2022 Miscellaneous Notes Pt advised of Cassandra's message and instructions. Pt verbalizes understanding. Pt is going to try taking 1/2 tablet at bedtime for several days then will increase to 1 tablet. Venita Green LPN Ativan/lorazepam was given once but it was explained to her that it would not be a terminal supervisor prescription. Celexa is used for anxiety as well. Initially some mild side effects are possible however should improve. She could try 1/2 tablet to start with then increase to a whole tablet after a few days. It would also be okay for her to try switching celexa to the evening or after a meal to help offset the nausea. Cassandra Arshad PA-C Patient calling she started new medication Dr Urbina gave her on Saturday morning, Citalopram 10 mg one tablet daily. Patient said made her feel little sick to her stomach. Patient was not sure because she took her other medications also same time. Patient was asking she did not think she had depression, she thought more anxiety. She said she is fearful going out and getting away from her home to far, Cassandra had given her a Lorazepam rx before, she was asking if she should take that instead? Advised patient may need to take the citalopram at bedtime. Please advise documented in this encounter [facility] 09-20-2022 Instructions Chencho Urbina MD - 09/20/2022 10:01 AM EDT Consider getting the shingrix vaccine for the prevention of shingles from a local pharmacy Consider getting a tetanus booster, Tdap at the health department. Please get magnesium oxide 250 mg and take one a day Please get labs one on or after 03/08/2023 prior to your next visit. documented in this encounter [facility] 09-20-2022 History of Present illness Narrative Medicare Yearly Visit Medical B eligibilty date 11/08/2004 Date of last exam 09/01/2021 PAST MEDICAL HISTORY PAST MEDICAL HISTORY Diagnosis Date Allergic rhinitis due to other allergen Anemia 09/16/2009 Cholecystitis, unspecified Colon Cancer(cecum) 09/29/[address] Davila Disorder of bone and cartilage, unspecified Diverticulitis of colon (without mention of hemorrhage)(562.11) Elevated fasting blood sugar 07/05/2006 Essential hypertension white coat HTN Family history of early CAD 01/14/2018 GERD without esophagitis HH (hiatus hernia) 09/29/2009 Intestinal disaccharidase deficiencies and disaccharide malabsorption Iron deficiency anemia, unspecified Lumbago Malignant neoplasm of colon, unspecified site s/p right hemicolectomy (Dr. Alan Davila) Mixed hyperlipidemia 01/03/2007 Personal history of colon cancer 12/21/2013 s/p right hemicolectomy Sciatica 06/28/2011 Second hand smoke exposure 01/14/2018 Sensory hearing loss, bilateral 01/21/2018 Stage 3 chronic kidney disease (HCC) 01/14/2018 Tinnitus of left ear 01/21/[address] Carrero PAST SURGICAL HISTORY PAST SURGICAL HISTORY Procedure Laterality Date 2D ECHO (EXEP) 05/01/2017 65%, with mild diast dysf and 1+ AL. CARDIAC STRESS TEST 05/01/2017 negative COLONOSCOP W/ OR W/O BRSH SPEC 12/22/10 repeat in COLONOSCOP W/ OR W/O BRSH SPEC 01-08-14 per repeat in 3-5 years COLONOSCOPY 07/13/2016 Repeat 07/2021 COLONOSCOPY W/BX 09/29/09 Cecal carcinoma EGD W/O BRSH SPECIMEN W/BX 09/29/09 Small HH PAST SURGICAL HISTORY OF 5/10 Rt hemicolectomy REMOVAL GALLBLADDER Cholecystectomy Penecillin [Other]; Vioxx [Rofecoxib] Medications reviewed: Yes FAMILY HISTORY FAMILY HISTORY Problem Relation Age of Onset Cancer Sister Metastatic cancer (lung and brain; ?primary); 2007 SOCIAL HISTORY: Social History Marital status: Spouse name: Years of education: Number of children: Social History Main Topics Smoking status: Never Smoker Smokeless tobacco: Never Used Alcohol use: No Drug use: No Leonor gets exercise a few days a week to stretch her back and other joints. . She watches her diet for sodium, low fat and low cholesterol some of the time. List of current specialists seen: Dr. Davila (Gen Surg) Optho End of Live Planning discussed including patients advanced directive wishes: Yes I am willing to follow Harvey's advanced directives. Depression screen Patient with situational depression and will be adding medication. Functional Ability/Safety Screen 1. Was the patient's timed Up and Go test unsteady or longer than 30 seconds? No 2. Does the patient need help with the phone, transportation, shopping,preparing meals, housework, laundry, medications or managing money? No 3. Does your home have rugs in the hallway, lack of grab bars in the bathroom, lack of handrails on the stairs or have poor lighting? No Hearing Evaluation: normal PHYSICAL EXAM BP 132/84 (BP Site: Right Arm, BP Position: Sitting, BP Cuff Size: Regular Adult) Pulse 70 Resp 14 Ht 160 cm (5' 3) Wt 63 kg (139 lb) BMI 24.62 kg/m Alert and oriented X 3: YES Body mass index is 24.62 kg/m . See below ASSESSMENT/PLAN: 81 year old female The following prevention plan was discussed during the office visit and provided to the patient: See below Chencho Urbina MD Chief Complaint Patient presents with: Medicare Wellness Exam HPI Leonor Pal is a 81 year old female who presents here today for chronic health issues and Medicare Annual Visit. Office visit - Medicare Wellness Patient did indicated that she still has the back and leg pain. She feels it will be something that she will just need to deal with. Patient became tearful and said she has a broken heart. Her has passed and she indicated that people will say it will get better with time. She said they are not in my shoes. She tried the zoloft but this made her feel sick and stopped it. passed in April and patient has been seen several times for situational stress. Patient worried about falling when out walking. But not wanting to use her walker out of the home. Office visit 07/25/2022 Patient was started on zoloft but just felt off with it. However she mentions that she was taking something 3 times a day and didn't take the other medication. So I question if patient was taking the correct medication or if she was taking it as prescribed. Her anniversary is coming up and she is worried about how that will affect her. However she is overall feeling better and is feeling like she is coping better. Office visit Situational stress 06/2022 Patient states she just feels miserable. Her on may 05. She continues to struggle with grief. Sometimes wishes she wouldn't wake up. She was given zoloft but states she never started it. Has noted that some days she really struggles with her thoughts racing and not shutting down. Other dys seem better. She denies issues with sleep. Office visit 6 month follow up 03/15/2022 Patient with hx of HTN, hyperlipidemia, BPPV, GERD, anemia, hx of colon cancer, allergies, carotid stenosis, and those as below. Past medical history, appointments, medications, allergies reviewed. Previous Medical History PAST MEDICAL HISTORY Diagnosis Date Advance directive discussed with patient 09/01/2021 Discussed 08/2021 Benign paroxysmal positional vertigo 01/14/2019 Carotid stenosis, asymptomatic, bilateral 07/21/2018 US 07/2018: less than 20% asim. Cholecystitis, unspecified Chronic right-sided low back pain Chronic right-sided thoracic back pain 07/17/2018 Colon Cancer(cecum) 09/29/[address] 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 Esparza Facial basal cell cancer 01/12/2019 Left nasal 12/[address] Esparza Family history of early CAD 01/14/2018 GERD without esophagitis HH (hiatus hernia) 09/29/2009 Iron deficiency anemia, unspecified Living will on file 09/01/2021 DPA: Kervin () Low blood magnesium 01/14/2019 Malignant neoplasm of colon (HCC) s/p right hemicolectomy (Dr. Alan Davila) Medicare annual wellness visit, subsequent 07/17/2018 Medicare Part B:11/08/2004 Last done: 07/17/2018 Mixed hyperlipidemia 01/03/2007 Personal history of colon cancer 12/21/2013 s/p right hemicolectomy Sciatica 06/28/2011 Seasonal allergic rhinitis Second hand smoke exposure 01/14/2018 Sensory hearing loss, bilateral 01/21/2018 Situational stress 01/14/2019 Squamous cell skin cancer 09/21/2021 Neck: removed 09/2021 Stage 3 chronic kidney disease (HCC) 01/14/2018 Tinnitus of left ear 01/21/[address] Carrero Previous Surgical History PAST SURGICAL HISTORY Procedure Laterality Date 2D ECHO (EXEP) 05/01/2017 65%, with mild diast dysf and 1+ AL. CARDIAC STRESS TEST 05/01/2017 negative CHOLECYSTECTOMY Cholecystectomy COLONOSCOPY 07/13/2016 Repeat 07/2021 COLONOSCOPY FLX DX W/COLLJ SPEC WHEN PFRMD 12/22/10 repeat in COLONOSCOPY FLX DX W/COLLJ SPEC WHEN PFRMD 01-08-14 per repeat in 3-5 years COLONOSCOPY W/BIOPSY SINGLE/MULTIPLE 09/29/09 Cecal carcinoma EGD TRANSORAL BIOPSY SINGLE/MULTIPLE 09/29/09 Small HH HEART CATHETERIZATION 07/30/2018 normal coronaries PAST SURGICAL HISTORY OF 10/17 Rt hemicolectomy Family History FAMILY HISTORY Problem Relation Age of Onset Cancer Sister Metastatic cancer (lung and brain; ?primary); 2007 Patient Allergies ALLERGIES Allergen Reactions Penecillin [Other] Unknown Vioxx [Rofecoxib] Unknown Current Medications Current Outpatient Medications on File Prior to Visit Medication Sig meclizine (ANTIVERT) 12.5 mg tab Take 1 tablet by mouth three times daily. lisinopril (ZESTRIL, PRINIVIL) 20 mg tablet Take 1 tablet by mouth once daily. carvedilol (COREG) 12.5 mg tablet Take 1 tablet by mouth twice daily. hydroCHLOROthiazide (HYDRODIURIL, ESIDRIX) 25 mg tablet Take 1 tablet by mouth once daily. omeprazole (PRILOSEC) 20 mg capsule Take 1 capsule by mouth once daily. Take 30 minutes before breakfast. multivitamin/iron/folic acid (CENTRUM WOMEN ORAL) Take by mouth. TYLENOL ARTHRITIS 650 MG TAB one tablet as needed No current facility-administered medications on file prior to visit. Social History Social History Tobacco Use Smoking status: Never Smokeless tobacco: Never Vaping Use Vaping Use: Never used Substance Use Topics Alcohol use: No Drug use: No Review of Symptoms REVIEW OF SYSTEMS GENERAL: No weight loss, malaise or fevers HEENT: Negative for frequent or significant headaches, No changes in hearing or vision, no nose bleeds or other nasal problems. Throat feels dry at times and will cough. NECK: Negative for lumps, goiter, pain and significant neck swelling RESPIRATORY: Negative for hemoptysis. Patient does have a frequent cough and when doing activity around the home will sometimes note occasional wheezing, COPD, and shortness of breath. CARDIOVASCULAR: Negative for chest pain, leg swelling, hypertension, CHF or palpitations. No claudication. GI: No nausea, vomiting, or increased diarrhea, No heartburn or reflux symptoms, and no blood : No history of dysuria, blood MUSCULOSKELETAL: patient stills has the right thoracic back pain. Using a corn bag helps. SKIN: Negative for lesions, rash, and itching PSYCH: See HPI HEMATOLOGY/LYMPHOLOGY: Negative for prolonged bleeding, bruising easily or swollen nodes ENDOCRINE: Negative for cold or heat intolerance, polyuria, polydipsia and goiter NEURO: No history of headaches, syncope, paralysis, seizures or tremors EXAM: BP 132/84 (BP Site: Right Arm, BP Position: Sitting, BP Cuff Size: Regular Adult) Pulse 70 Resp 14 Ht 160 cm (5' 3) Wt 63 kg (139 lb) BMI 24.62 kg/m Last 5 Encounter Wt Readings: Date: Wt: 09/20/2022 63 kg (139 lb) 07/25/2022 63 kg (139 lb) 06/27/2022 64.2 kg (141 lb 9.6 oz) 05/01/2022 64.4 kg (142 lb) 03/15/2022 66.7 kg (147 lb) General Appearance: Well appearing, alert, in no acute distress, well-hydrated, well nourished.. Skin: Skin color, texture, turgor normal, no suspicious rashes or lesions. Head: Normocephalic, no masses, lesions, tenderness or abnormalities. Eyes: Anicteric sclera. Pupils are equally round and reactive to light. Extraocular movements are intact. . Ears: External ears, TM's normal, canals clear. Neck: Supple, no adenopathy; thyroid symmetric, normal size, no bruits. Lungs: Lungs clear to auscultation. No wheezing, rhonchi, rales.. Heart: RRR without murmur, gallop, or rubs. No ectopy. Abdomen: Normal abdominal exam, Abdomen soft, non-tender. Bowel sounds normal. No masses, organomegaly. Extremities: No deformities, edema, skin discoloration, Good capillary refill. . Musculoskeletal: Muscular strength intact, No joint swelling, deformity, or tenderness. Peripheral Pulses: Normal. Neurologic: Gait normal. Reflexes normal and symmetric. Sensation to light touch and crainal nerves 2-12 intact.. Health Maintenance List DTAP,TDAP,TD(1 - Tdap) Never done SHINGRIX VACCINE(1 of 2) Never done ADVANCE DIRECTIVE DISCUSSION due on 06/10/2022 DIABETES SCREEN due on 09/05/2025 BONE DENSITY Completed INFLUENZA Completed DEPRESSION ASSESSMENT Completed COVID-19 VACCINE Completed PNEUMOCOCCAL: 65+ Completed Data reviewed Component Latest Ref Rng & Units 08/28/2021 09/06/2021 03/01/2022 08/29/2022 09/05/2022 WBC 3.70 - 11.00 k/uL 6.69 9.70 RBC 3.90 - 5.20 m/uL 4.04 4.13 Hemoglobin 11.5 - 15.5 g/dL 13.0 13.4 Hematocrit 36.0 - 46.0 % 37.5 38.5 MCV 80.0 - 100.0 fL 92.8 93.2 MCH 26.0 - 34.0 pg 32.2 32.4 MCHC 30.5 - 36.0 g/dL 34.7 34.8 RDW-CV 11.5 - 15.0 % 13.3 12.7 Platelet Count 150 - 400 k/uL 259 314 MPV 9.0 - 12.7 fL 10.4 10.6 Neut% % 56.9 70.7 Abs Neut (ANC) 1.45 - 7.50 k/uL 3.80 6.86 Lymph% % 30.0 16.4 Abs Lymph 1.00 - 4.00 k/uL 2.01 1.59 [place]% % 8.4 9.9 Abs [place] <0.87 k/uL 0.56 0.96 (H) Eosin% % 3.1 1.9 Abs Eosin <0.46 k/uL 0.21 0.18 Baso% % 1.2 0.6 Abs Baso <0.11 k/uL 0.08 0.06 Immature Gran % % 0.4 0.5 IMMATURE GRANS (ABS) <0.10 k/uL 0.03 0.05 NRBC /100 WBC 0.0 0.0 Absolute nRBC <0.01 k/uL <0.01 <0.01 DTYPE Auto Auto Protein, Total 6.3 - 8.0 g/dL 6.9 7.4 Albumin 3.9 - 4.9 g/dL 3.9 4.3 Calcium 8.5 - 10.2 mg/dL 9.1 9.3 10.4 (H) 9.9 Bilirubin, Total 0.2 - 1.3 mg/dL 0.6 0.7 Alkaline Phosphatase 34 - 123 U/L 65 57 AST 13 - 35 U/L 25 24 ALT 7 - 38 U/L 10 17 Glucose 74 - 99 mg/dL 104 (H) 100 (H) 104 (H) 107 (H) BUN 7 - 21 mg/dL 20 16 15 15 Creatinine 0.58 - 0.96 mg/dL 1.30 (H) 1.49 (H) 1.21 (H) 1.22 (H) Sodium 136 - 144 mmol/L 142 135 (L) 128 (L) 131 (L) Potassium 3.7 - 5.1 mmol/L 3.6 (L) 3.8 3.7 4.1 3.8 Chloride 97 - 105 mmol/L 107 (H) 103 94 (L) 98 CO2 22 - 30 mmol/L 21 (L) 21 (L) 24 22 Anion Gap 9 - 18 mmol/L 14 11 10 11 eGFR >=60 mL/min/1.73m 41 (L) 35 (L) 45 (L) 44 (L) Color Yellow Yellow Clarity Clear Clear Glucose, Urine Trace, Negative Negative Bilirubin, Urine Negative Negative Ketones, Urine Trace, Negative Negative Specific [place], Ur 1.005 - 1.030 1.017 Hemoglobin/Blood,Ur Negative, Trace Negative pH, Urine 5.0 - 8.0 7.5 Protein, Urine Trace, Negative Trace Urobilinogen Negative Negative Nitrites Negative Negative Leukest Negative, 25 Juan/uL Negative WBC, Urine 0-5 /HPF 0-5 /HPF RBC, Urine 0-3 /HPF 0-3 /HPF Epithelial Cells /HPF Few Non-Squamous Epithelial Cells None Seen /HPF Few (A) Total Cholesterol, Nonfasting <200 mg/dL 192 201 (H) 171 Triglycerides, Nonfasting <150 mg/dL 126 141 109 HDL Cholesterol, Nonfasting >39 mg/dL 48 42 52 LDL Cholesterol, Nonfasting <100 mg/dL 119 (H) 131 (H) 97 Non HDL Cholesterol, Nonfasting <130 mg/dL 144 (H) 159 (H) 119 VLDL Cholesterol, Nonfasting <30 mg/dL 25 28 22 Total Chol/HDL Ratio, Nonfasting <5.10 mg/dL 4.00 4.79 3.29 LDL/HDL Ratio, Nonfasting <2.54 mg/dL 2.48 3.12 (H) 1.87 Hemoglobin A1C 4.3 - 5.6 % 5.6 5.4 5.5 Estimated Average Glucose mg/dL 114 108 111 Vitamin B12 232-1,245 pg/mL 731 Magnesium 1.7 - 2.3 mg/dL 1.6 (L) 1.7 1.6 (L) PTH, Intact 15 - 65 pg/mL 75 (H) A/P ASSESSMENT/PLAN: 1. Medicare annual wellness visit, subsequent - ICD9: V70.0, ICD10: Z00.00 (primary diagnosis) - Counseled on healthy diet and regular exercise - Calcium intake with supplements or by diet of 1000 mg/day for under 50, 7620-4621 mg/day for 50+ - Follow up for annual exam in one year - encouraged using her walker when out of the home. For safety. 2. Essential hypertension - ICD9: 401.9, ICD10: I10 - good control - Continue current medication(s) - Recommended regular aerobic exercise. - Recommend home blood pressure monitoring, to bring results in on next visit - Goal of BP <130/80 3. Mixed hyperlipidemia - ICD9: 272.2, ICD10: E78.2 - good control - Encouraged following a low fat, low cholesterol diet. - Discussed the benefits of regular aerobic exercise and weight loss. - Encouraged following a low carbohydrate, healthy oil intake diet. - Continue current therapy. 4. Elevated fasting blood sugar - ICD9: 790.21, ICD10: R73.01 - improved with life style changes. 5. Carotid stenosis, asymptomatic, bilateral - ICD9: 433.10, 433.30, ICD10: I65.23 - check US 6. Iron deficiency anemia, unspecified iron deficiency anemia type - ICD9: 280.9, ICD10: D50.9 - labs good. 7. Stage 3a chronic kidney disease (HCC) - ICD9: 585.3, ICD10: N18.31 - labs improved with better hydration. 8. Malignant neoplasm of colon, unspecified part of colon (HCC) - ICD9: 153.9, ICD10: C18.9 - follows with gen surgery 9. Low blood magnesium - ICD9: 790.6, ICD10: R79.0 - patient to start OTC Mag oxide 250 mg once a day. 10. Situational depression - ICD9: 309.0, ICD10: F43.21 - will trial celexa 10 mg a day 11. Benign paroxysmal positional vertigo, unspecified laterality - ICD9: 386.11, ICD10: H81.10 Cont - MECLIZINE 12.5 MG TABLET 12. Advance directive discussed with patient - ICD9: V65.49, ICD10: Z71.89 - patient may update her DPA. Packet provided. 13. SOB (shortness of breath) - ICD9: 786.05, ICD10: R06.02 Check - SPIROMETRY - BASELINE AND POST DILATOR 14. Second hand smoke exposure - ICD9: V15.89, ICD10: Z77.22 Check - SPIROMETRY - BASELINE AND POST DILATOR Requested Prescriptions Signed Prescriptions Disp Refills meclizine (ANTIVERT) 12.5 mg tab 270 tablet 1 Sig: Take 1 tablet by mouth three times daily. lisinopril (ZESTRIL) 20 mg tablet 90 tablet 1 Sig: Take 1 tablet by mouth once daily. carvedilol (COREG) 12.5 mg tablet 180 tablet 1 Sig: Take 1 tablet by mouth twice daily. hydroCHLOROthiazide 25 mg tablet 90 tablet 1 Sig: Take 1 tablet by mouth once daily. omeprazole (PRILOSEC) 20 mg capsule 90 capsule 1 Sig: Take 1 capsule by mouth once daily. Take 30 minutes before breakfast. citalopram hydrobromide (CELEXA) 10 mg tablet 90 tablet 1 Sig: Take 1 tablet by mouth once daily. Magnesium Oxide 250 mg magnesium tab Sig: Take 1 tablet by mouth once daily. F/u 4 weeks depression f/u F/u 6 months routine check BMP, Lipid, A1c and Mg prior I spent a total of 45 minutes on the date of the service which included preparing to see the patient, [id number] patient care, completing clinical documentation, performing a medically appropriate examination, counseling and educating the patient/family/caregiver and ordering medications, tests, or procedures. Chencho Urbina MD documented in this encounter [facility] 08-31-2022 Miscellaneous Notes Pt notified of results & to repeat in a week, pt voiced understanding. Ana Lilia Langley LPN Let patient know her recent labs showed low sodium and elevated calcium. Would like for her to repeat these in a week. Orders placed. Will discuss others labs at her upcoming appt. documented in this encounter [facility] 07-25-2022 Instructions Cassandra Arshad PA-C - 07/25/2022 12:50 PM EST We could try hyrdoxyzine as needed in future for anxiety. Just let us know. Lorazepam should be only as needed for panic attacks or severe anxiety symptoms. Would not recommend this daily. Sertraline is the medication that should of been taken daily. But if you had side effects to it, then don't restart. Let me know if you have additional questions once you get home. documented in this encounter [facility] 07-25-2022 History of Present illness Narrative Chief Complaint Patient presents with: Follow Up: 4 week follow up HPI Leonor Pal is a 81 year old female who presents here today for recheck on depression. Patient was started on zoloft but just felt off with it. However she mentions that she was taking something 3 times a day and didn't take the other medication. So I question if patient was taking the correct medication or if she was taking it as prescribed. Her anniversary is coming up and she is worried about how that will affect her. However she is overall feeling better and is feeling like she is coping better. Past medical history, appointments, medications, allergies reviewed. Previous Medical History PAST MEDICAL HISTORY Diagnosis Date Advance directive discussed with patient 09/01/2021 Discussed 08/2021 Benign paroxysmal positional vertigo 01/14/2019 Carotid stenosis, asymptomatic, bilateral 07/21/2018 US 07/2018: less than 20% asim. Cholecystitis, unspecified Chronic right-sided low back pain Chronic right-sided thoracic back pain 07/17/2018 Colon Cancer(cecum) 09/29/[address] 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 Esparza Facial basal cell cancer 01/12/2019 Left nasal 12/[address] Esparza Family history of early CAD 01/14/2018 GERD without esophagitis HH (hiatus hernia) 09/29/2009 Iron deficiency anemia, unspecified Living will on file 09/01/2021 DPA: Kervin () Low blood magnesium 01/14/2019 Malignant neoplasm of colon (HCC) s/p right hemicolectomy (Dr. Alan Davila) Medicare annual wellness visit, subsequent 07/17/2018 Medicare Part B:11/08/2004 Last done: 07/17/2018 Mixed hyperlipidemia 01/03/2007 Personal history of colon cancer 12/21/2013 s/p right hemicolectomy Sciatica 06/28/2011 Seasonal allergic rhinitis Second hand smoke exposure 01/14/2018 Sensory hearing loss, bilateral 01/21/2018 Situational stress 01/14/2019 Squamous cell skin cancer 09/21/2021 Neck: removed 09/2021 Stage 3 chronic kidney disease (HCC) 01/14/2018 Tinnitus of left ear 01/21/[address] Carrero Previous Surgical History PAST SURGICAL HISTORY Procedure Laterality Date 2D ECHO (EXEP) 05/01/2017 65%, with mild diast dysf and 1+ AL. CARDIAC STRESS TEST 05/01/2017 negative CHOLECYSTECTOMY Cholecystectomy COLONOSCOPY 07/13/2016 Repeat 07/2021 COLONOSCOPY FLX DX W/COLLJ SPEC WHEN PFRMD 12/22/10 repeat in COLONOSCOPY FLX DX W/COLLJ SPEC WHEN PFRMD 01-08-14 per [facility] repeat in 3-5 years COLONOSCOPY W/BIOPSY SINGLE/MULTIPLE 09/29/09 Cecal carcinoma EGD TRANSORAL BIOPSY SINGLE/MULTIPLE 09/29/09 Small HH HEART CATHETERIZATION 07/30/2018 normal coronaries PAST SURGICAL HISTORY OF 10/17 Rt hemicolectomy Family History FAMILY HISTORY Problem Relation Age of Onset Cancer Sister Metastatic cancer (lung and brain; ?primary); 2007 Patient Allergies ALLERGIES Allergen Reactions Penecillin [Other] Unknown Vioxx [Rofecoxib] Unknown Current Medications Current Outpatient Medications on File Prior to Visit Medication Sig meclizine (ANTIVERT) 12.5 mg tab Take 1 tablet by mouth three times daily. lisinopril (ZESTRIL, PRINIVIL) 20 mg tablet Take 1 tablet by mouth once daily. carvedilol (COREG) 12.5 mg tablet Take 1 tablet by mouth twice daily. hydroCHLOROthiazide (HYDRODIURIL, ESIDRIX) 25 mg tablet Take 1 tablet by mouth once daily. omeprazole (PRILOSEC) 20 mg capsule Take 1 capsule by mouth once daily. Take 30 minutes before breakfast. multivitamin/iron/folic acid (CENTRUM WOMEN ORAL) Take by mouth. TYLENOL ARTHRITIS 650 MG TAB one tablet as needed sertraline (ZOLOFT) 25 mg tablet Take 1 tablet by mouth once daily. (Patient not taking: Reported on 07/25/2022) No current facility-administered medications on file prior to visit. Social History Social History Tobacco Use Smoking status: Never Smokeless tobacco: Never Vaping Use Vaping Use: Never used Substance Use Topics Alcohol use: No Drug use: No Review of Symptoms REVIEW OF SYSTEMS See hpi EXAM: BP 126/68 Pulse 86 Resp 16 Wt 63 kg (139 lb) SpO2 100% BMI 24.24 kg/m General Appearance: Well appearing, alert, in no acute distress, well-hydrated, well nourished.. Health Maintenance List ADVANCE DIRECTIVE DISCUSSION due on 06/10/2022 DEPRESSION ASSESSMENT due on 06/10/2022 DTAP,TDAP,TD(1 - Tdap) due on 09/01/2022 SHINGRIX VACCINE(1 of 2) due on 09/01/2022 DIABETES SCREEN due on 03/01/2025 BONE DENSITY Completed INFLUENZA Completed COVID-19 VACCINE Completed PNEUMOCOCCAL: 65+ Completed Data reviewed ASSESSMENT/PLAN: 1. Situational stress - ICD9: V62.89, ICD10: F43.9 (primary diagnosis) Patient seems to be in better spirits. She declines additional medication. Could consider prn hydroxyzine if needed in future. She will let us know. 2. Grief reaction - ICD9: 309.0, ICD10: F43.21 As above. Cassandra Arshad PA-C documented in this encounter [facility] 07-03-2022 Miscellaneous Notes noted Call placed to patient and provider message reviewed. Patient will stop Zoloft and see if symptoms improve. Patient reports that she hasn't taken any lorazepam. Libia Genao RN She could try stopping the zoloft and see if symptoms improve. Is she taking ativan too? Patient calls to report since appointment on 06/27/2022 she has been having nausea and loss of appetite with increased dizziness and light-headedness (no falls or passing out) with occasional headache. She reports that even her tea is turning her stomach. She reports that she took her first sertraline on Saturday evening 06/27/2022 and the symptoms started on morning 06/28/2022. Patient asking if provider feels the symptoms are related to the sertraline or possibly the Covid Booster Shot (reports she has never had any symptoms with any other Covid shot received)? Please review and advise, Libia Genao RN documented in this encounter [facility] 06-27-2022 History of Present illness Narrative Chief Complaint Patient presents with: WMH: Rough go depression; passed recently HPI Leonor Pal is a 81 year old female who presents here today for Above Complaints.. Patient states she just feels miserable. Her on may 05. She continues to struggle with grief. Sometimes wishes she wouldn't wake up. She was given zoloft but states she never started it. Has noted that some days she really struggles with her thoughts racing and not shutting down. Other dys seem better. She denies issues with sleep. Past medical history, appointments, medications, allergies reviewed. Previous Medical History PAST MEDICAL HISTORY Diagnosis Date Advance directive discussed with patient 09/01/2021 Discussed 08/2021 Benign paroxysmal positional vertigo 01/14/2019 Carotid stenosis, asymptomatic, bilateral 07/21/2018 US 07/2018: less than 20% asim. Cholecystitis, unspecified Chronic right-sided low back pain Chronic right-sided thoracic back pain 07/17/2018 Colon Cancer(cecum) 09/29/[address] 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 Esparza Facial basal cell cancer 01/12/2019 Left nasal 12/[address] Esparza Family history of early CAD 01/14/2018 GERD without esophagitis HH (hiatus hernia) 09/29/2009 Iron deficiency anemia, unspecified Living will on file 09/01/2021 DPA: Kervin () Low blood magnesium 01/14/2019 Malignant neoplasm of colon (HCC) s/p right hemicolectomy (Dr. Alan Davila) Medicare annual wellness visit, subsequent 07/17/2018 Medicare Part B:11/08/2004 Last done: 07/17/2018 Mixed hyperlipidemia 01/03/2007 Personal history of colon cancer 12/21/2013 s/p right hemicolectomy Sciatica 06/28/2011 Seasonal allergic rhinitis Second hand smoke exposure 01/14/2018 Sensory hearing loss, bilateral 01/21/2018 Situational stress 01/14/2019 Squamous cell skin cancer 09/21/2021 Neck: removed 09/2021 Stage 3 chronic kidney disease (HCC) 01/14/2018 Tinnitus of left ear 01/21/[address] Carrero Previous Surgical History PAST SURGICAL HISTORY Procedure Laterality Date 2D ECHO (EXEP) 05/01/2017 65%, with mild diast dysf and 1+ AL. CARDIAC STRESS TEST 05/01/2017 negative CHOLECYSTECTOMY Cholecystectomy COLONOSCOPY 07/13/2016 Repeat 07/2021 COLONOSCOPY FLX DX W/COLLJ SPEC WHEN PFRMD 12/22/10 repeat in COLONOSCOPY FLX DX W/COLLJ SPEC WHEN PFRMD 01-08-14 per repeat in 3-5 years COLONOSCOPY W/BIOPSY SINGLE/MULTIPLE 09/29/09 Cecal carcinoma EGD TRANSORAL BIOPSY SINGLE/MULTIPLE 09/29/09 Small HH HEART CATHETERIZATION 07/30/2018 normal coronaries PAST SURGICAL HISTORY OF 10/17 Rt hemicolectomy Family History FAMILY HISTORY Problem Relation Age of Onset Cancer Sister Metastatic cancer (lung and brain; ?primary); 2007 Patient Allergies ALLERGIES Allergen Reactions Penecillin [Other] Unknown Vioxx [Rofecoxib] Unknown Current Medications Current Outpatient Medications on File Prior to Visit Medication Sig meclizine (ANTIVERT) 12.5 mg tab Take 1 tablet by mouth three times daily. lisinopril (ZESTRIL, PRINIVIL) 20 mg tablet Take 1 tablet by mouth once daily. carvedilol (COREG) 12.5 mg tablet Take 1 tablet by mouth twice daily. hydroCHLOROthiazide (HYDRODIURIL, ESIDRIX) 25 mg tablet Take 1 tablet by mouth once daily. omeprazole (PRILOSEC) 20 mg capsule Take 1 capsule by mouth once daily. Take 30 minutes before breakfast. multivitamin/iron/folic acid (CENTRUM WOMEN ORAL) Take by mouth. sertraline (ZOLOFT) 25 mg tablet Take 1 tablet by mouth once daily. TYLENOL ARTHRITIS 650 MG TAB one tablet as needed No current facility-administered medications on file prior to visit. Social History Social History Tobacco Use Smoking status: Never Smokeless tobacco: Never Vaping Use Vaping Use: Never used Substance Use Topics Alcohol use: No Drug use: No Review of Symptoms REVIEW OF SYSTEMS See hpi EXAM: BP 126/78 Pulse 64 Resp 16 Wt 64.2 kg (141 lb 9.6 oz) SpO2 96% BMI 24.69 kg/m General Appearance: Well appearing, alert, in no acute distress, well-hydrated, well nourished.. PSYCH: Appearance: well dressed well groomed, cooperative, and pleasant Behavior: good eye contact Speech: normal and fluent and coherent Mood: tearful at times Affect: appropriate Perceptions: none Thought process: goal directed Thought Content: normal Intelligence level: normal Insight: fair Judgment: fair . Health Maintenance List COVID-19 VACCINE(5 - Booster for Pfizer series) due on 11/10/2021 ADVANCE DIRECTIVE DISCUSSION due on 06/10/2022 DEPRESSION ASSESSMENT due on 06/10/2022 DTAP,TDAP,TD(1 - Tdap) due on 09/01/2022 SHINGRIX VACCINE(1 of 2) due on 09/01/2022 DIABETES SCREEN due on 03/01/2025 BONE DENSITY Completed INFLUENZA Completed PNEUMOCOCCAL: 65+ Completed Data reviewed ASSESSMENT/PLAN: 1. Situational stress - ICD9: V62.89, ICD10: F43.9 (primary diagnosis) Patient to start zoloft 25mg. Ativan prn. Follow up in 1 month for recheck. - LORAZEPAM 0.5 MG TABLET 2. Grief reaction - ICD9: 309.0, ICD10: F43.21 As above. - LORAZEPAM 0.5 MG TABLET 3. Encounter for immunization - ICD9: V03.89, ICD10: Z23 - PFIZER-BIONTNubity COVID-19 BIVALENT BOOSTER VACCINE, AGE 12+ YR Cassandra Arshad PA-C documented in this encounter [facility] 03-15-2022 History of Present illness Narrative Chief Complaint Patient presents with: 6 Month Exam HPI Leonor Pal is a 81 year old female who presents here today for Chronic Medical Conditions.. Patient with hx of HTN, hyperlipidemia, BPPV, GERD, anemia, hx of colon cancer, allergies, carotid stenosis, and those as below. Patient overall doing okay. Has had some itching at the top of her feet. Past medical history, appointments, medications, allergies reviewed. Previous Medical History PAST MEDICAL HISTORY Diagnosis Date Advance directive discussed with patient 09/01/2021 Discussed 08/2021 Benign paroxysmal positional vertigo 01/14/2019 Carotid stenosis, asymptomatic, bilateral 07/21/2018 US 07/2018: less than 20% asim. Cholecystitis, unspecified Chronic right-sided low back pain Chronic right-sided thoracic back pain 07/17/2018 Colon Cancer(cecum) 09/29/[address] 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 Esparza Facial basal cell cancer 01/12/2019 Left nasal 12/[address] Esparza Family history of early CAD 01/14/2018 GERD without esophagitis HH (hiatus hernia) 09/29/2009 Iron deficiency anemia, unspecified Living will on file 09/01/2021 DPA: Kervin () Low blood magnesium 01/14/2019 Malignant neoplasm of colon (HCC) s/p right hemicolectomy (Dr. Alan Davila) Medicare annual wellness visit, subsequent 07/17/2018 Medicare Part B:11/08/2004 Last done: 07/17/2018 Mixed hyperlipidemia 01/03/2007 Personal history of colon cancer 12/21/2013 s/p right hemicolectomy Sciatica 06/28/2011 Seasonal allergic rhinitis Second hand smoke exposure 01/14/2018 Sensory hearing loss, bilateral 01/21/2018 Situational stress 01/14/2019 Squamous cell skin cancer 09/21/2021 Neck: removed 09/2021 Stage 3 chronic kidney disease (HCC) 01/14/2018 Tinnitus of left ear 01/21/[address] Carrero Previous Surgical History PAST SURGICAL HISTORY Procedure Laterality Date 2D ECHO (EXEP) 05/01/2017 65%, with mild diast dysf and 1+ AL. CARDIAC STRESS TEST 05/01/2017 negative CHOLECYSTECTOMY Cholecystectomy COLONOSCOPY 07/13/2016 Repeat 07/2021 COLONOSCOPY FLX DX W/COLLJ SPEC WHEN PFRMD 12/22/10 repeat in COLONOSCOPY FLX DX W/COLLJ SPEC WHEN PFRMD 01-08- per repeat in 3-5 years COLONOSCOPY W/BIOPSY SINGLE/MULTIPLE 09/29/09 Cecal carcinoma EGD TRANSORAL BIOPSY SINGLE/MULTIPLE 09/29/09 Small HH HEART CATHETERIZATION 07/30/2018 normal coronaries PAST SURGICAL HISTORY OF 10/17 Rt hemicolectomy Family History FAMILY HISTORY Problem Relation Age of Onset Cancer Sister Metastatic cancer (lung and brain; ?primary); 2007 Patient Allergies ALLERGIES Allergen Reactions Penecillin [Other] Unknown Vioxx [Rofecoxib] Unknown Current Medications Current Outpatient Medications on File Prior to Visit Medication Sig omeprazole (PRILOSEC) 20 mg capsule Take 1 capsule by mouth once daily. Take 30 minutes before breakfast. meclizine (ANTIVERT) 12.5 mg tab Take 1 tablet by mouth three times daily. lisinopril (ZESTRIL, PRINIVIL) 20 mg tablet Take 1 tablet by mouth once daily. carvedilol (COREG) 12.5 mg tablet Take 1 tablet by mouth twice daily. hydroCHLOROthiazide (HYDRODIURIL, ESIDRIX) 25 mg tablet Take 1 tablet by mouth once daily. multivitamin/iron/folic acid (CENTRUM WOMEN ORAL) Take by mouth. TYLENOL ARTHRITIS 650 MG TAB one tablet as needed No current facility-administered medications on file prior to visit. Social History Social History Tobacco Use Smoking status: Never Smokeless tobacco: Never Substance Use Topics Alcohol use: No Drug use: No Review of Symptoms REVIEW OF SYSTEMS GENERAL: No weight loss, malaise or fevers NECK: Negative for lumps, goiter, pain and significant neck swelling RESPIRATORY: Negative for cough, hemoptysis, wheezing, COPD, dyspnea or shortness of breath CARDIOVASCULAR: Negative for chest pain, leg swelling, hypertension, CHF or palpitations NEURO: No history of headaches, syncope, paralysis, seizures or tremors EXAM: BP 110/70 (BP Site: Left Arm, BP Position: Sitting, BP Cuff Size: Regular Adult) Pulse 72 Temp 36.4 C (97.5 F) Resp 18 Wt 66.7 kg (147 lb) BMI 25.63 kg/m General Appearance: Well appearing, alert, in no acute distress, well-hydrated, well nourished.. Neck: Supple, no adenopathy; thyroid symmetric, normal size, no bruits. Lungs: Lungs clear to auscultation. No wheezing, rhonchi, rales.. Heart: RRR without murmur, gallop, or rubs. No ectopy. Extremities: No deformities, edema, skin discoloration, clubbing or cyanosis. Good capillary refill. . Peripheral Pulses: Normal. Health Maintenance List DEPRESSION ASSESSMENT Never done COVID-19 VACCINE(5 - Booster for Pfizer series) due on 11/10/2021 INFLUENZA(1) due on 02/08/2022 DTAP,TDAP,TD(1 - Tdap) due on 09/01/2022 SHINGRIX VACCINE(1 of 2) due on 09/01/2022 DIABETES SCREEN due on 03/01/2025 BONE DENSITY Completed ADVANCE DIRECTIVE DISCUSSION Completed PNEUMOCOCCAL: 65+ Completed Data reviewed Component Latest Ref Rng & Units 03/01/2022 Glucose 74 - 99 mg/dL 100 (H) BUN 7 - 21 mg/dL 16 Creatinine 0.58 - 0.96 mg/dL 1.49 (H) Sodium 136 - 144 mmol/L 135 (L) Potassium 3.7 - 5.1 mmol/L 3.7 Chloride 97 - 105 mmol/L 103 CO2 22 - 30 mmol/L 21 (L) Anion Gap 9 - 18 mmol/L 11 Calcium 8.5 - 10.2 mg/dL 9.3 eGFR >=60 mL/min/1.73m 35 (L) Total Cholesterol, Nonfasting <200 mg/dL 201 (H) Triglycerides, Nonfasting <150 mg/dL 141 HDL Cholesterol, Nonfasting >39 mg/dL 42 LDL Cholesterol, Nonfasting <100 mg/dL 131 (H) Non HDL Cholesterol, Nonfasting <130 mg/dL 159 (H) VLDL Cholesterol, Nonfasting <30 mg/dL 28 Total Chol/HDL Ratio, Nonfasting <5.10 mg/dL 4.79 LDL/HDL Ratio, Nonfasting <2.54 mg/dL 3.12 (H) Hemoglobin A1C 4.3 - 5.6 % 5.4 Estimated Average Glucose mg/dL 108 Magnesium 1.7 - 2.3 mg/dL 1.7 ASSESSMENT/PLAN: 1. Essential hypertension - ICD9: 401.9, ICD10: I10 (primary diagnosis) - good control - Continue current medication(s) - Recommended regular aerobic exercise. - Recommend home blood pressure monitoring, to bring results in on next visit - Goal of BP <130/80 - COMP METABOLIC PANEL - CBC + DIFF - URINALYSIS, WITH MICROSCOPIC 2. Mixed hyperlipidemia - ICD9: 272.2, ICD10: E78.2 - good control - Encouraged following a low carbohydrate, healthy oil intake diet. - Continue current therapy. - LIPID PANEL, NONFASTING 3. Stage 3 chronic kidney disease, unspecified whether stage 3a or 3b CKD (HCC) - ICD9: 585.3, ICD10: N18.30 - eGFR: Stable - Counseled on avoiding regular use of NSAIDs, adequate hydration, potential risk of IV dye - COMP METABOLIC PANEL - URINALYSIS, WITH MICROSCOPIC 4. Elevated fasting blood sugar - ICD9: 790.21, ICD10: R73.01 Good control - HGB A1C - COMP METABOLIC PANEL 5. Iron deficiency anemia, unspecified iron deficiency anemia type - ICD9: 280.9, ICD10: D50.9 stable 6. Seasonal allergic rhinitis, unspecified trigger - ICD9: 477.9, ICD10: J30.2 7. Benign paroxysmal positional vertigo, unspecified laterality - ICD9: 386.11, ICD10: H81.10 - MECLIZINE 12.5 MG TABLET 8. Low blood magnesium - ICD9: 790.6, ICD10: R79.0 - MAGNESIUM BLD 9. Encounter for immunization - ICD9: V03.89, ICD10: Z23 - INFLUENZA SEASONAL QUADRIVALENT HIGH DOSE AGE 65+ Cassandra Arshad PA-C documented in this encounter [facility] 11-03-2021 Miscellaneous Notes Last refill 09/01/21 Qty: 90 with 1 refill Pt has appt 03/07/22 Venita Green LPN Patient has been identified by name and date of : Yes Pending Prescriptions Disp Refills OMEPRAZOLE 20 MG CAPSULE,DELAYED RELEASE 90 capsule 1 Sig: Take 1 capsule by mouth once daily. Take 30 minutes before breakfast. HILLARY: No RX INSTRUCTIONS: Patient aware RX will be sent to pharmacy. No need to notify patient. Angela Hernandez documented in this encounter [facility] 10-02-2021 History of Present illness Narrative Patient presents for suture removal per Dr Urbina. Removed 4 sutures from lower left neck. Wound well approximated and healing. Slight pink coloration from bandaid irritation noted. Tolerated procedure well. Pt alert and oriented. 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 Margins are clear. No further Tx needed. Will just monitor area. documented in this encounter [facility] 09-20-2021 Procedure note Procedure(s): SKIN LESION BIOPSY Pre-Procedure Diagnose(s): Neoplasm of uncertain behavior of skin of neck Post-Procedure Diagnose(s): Neoplasm of uncertain behavior of skin of neck UNIVERSAL PROTOCOL / SAFETY CHECKLIST Procedure to be Performed: skin excision for biopsy Sign In: A Moment of CARE was completed. Personnel directly involved with the procedure wore the appropriate PPE (Personal Protective Equipment). Patient/Surrogate Stated/Verified: PATIENT VERIFIED(optional for EMERGENT procedures): Patient name, Date of , Relevant allergies and The intended procedure Time Out Communication: Intended patient and procedure match the source documents. Consent documented and matches the intended procedure. Correct side/site marked and visible. Medications required for procedure verified. Fire risk assessed and interventions discussed. Sign Out: SIGN OUT (optional for EMERGENT procedures): All specimen containers correctly labeled. All instruments, equipment, possible retained foreign bodies accounted for. Post-procedure follow-up management communicated and Plan of Care Visit completed when applicable. Area was cleansed with betadine and alcohol then anesthetized with 1% lido with Epi at 1:100,000. The area was draped in sterile fashion. A #15 blade was used to excise the lesion in an elliptical fashion. Electrocaughtery set at 28 was used to aid in hemostasis. The edges were brought together using 3-0 Ethilon with 4 interrupted mattress sutures. The area was cleansed and cover with antibiotic ointment and a sterile dressing. Patient tolerated well with minimal blood loss. Lesion size: 1.2 cm x 0.7 cm Chencho Urbina MD documented in this encounter [facility] 09-20-2021 History of Present illness Narrative Chief Complaint Patient presents with: LESION, SKIN: Patient is here for removal of lesion on front side of neck HPI Leonor Pal is a 80 year old female who presents here today for Above Complaints. Patient is here for neck lesion. Has a area on her neck for the past year that is not resolving and is tender to touch. Has used antibiotic ointment on it with no improvement. Past medical history, appointments, medications, allergies reviewed. Previous Medical History PAST MEDICAL HISTORY Diagnosis Date Advance directive discussed with patient 09/01/2021 Discussed 08/2021 Benign paroxysmal positional vertigo 01/14/2019 Carotid stenosis, asymptomatic, bilateral 07/21/2018 US 07/2018: less than 20% asim. Cholecystitis, unspecified Chronic right-sided low back pain Chronic right-sided thoracic back pain 07/17/2018 Colon Cancer(cecum) 09/29/[address] 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 Esparza Facial basal cell cancer 01/12/2019 Left nasal 12/[address] Esparza Family history of early CAD 01/14/2018 GERD without esophagitis HH (hiatus hernia) 09/29/2009 Iron deficiency anemia, unspecified Living will on file 09/01/2021 DPA: Kervin () Low blood magnesium 01/14/2019 Malignant neoplasm of colon (HCC) s/p right hemicolectomy (Dr. Alan Davila) Medicare annual wellness visit, subsequent 07/17/2018 Medicare Part B:11/08/2004 Last done: 07/17/2018 Mixed hyperlipidemia 01/03/2007 Personal history of colon cancer 12/21/2013 s/p right hemicolectomy Sciatica 06/28/2011 Seasonal allergic rhinitis Second hand smoke exposure 01/14/2018 Sensory hearing loss, bilateral 01/21/2018 Situational stress 01/14/2019 Stage 3 chronic kidney disease (HCC) 01/14/2018 Tinnitus of left ear 01/21/[address] Carrero Previous Surgical History PAST SURGICAL HISTORY Procedure Laterality Date 2D ECHO (EXEP) 05/01/2017 65%, with mild diast dysf and 1+ AL. CARDIAC STRESS TEST 05/01/2017 negative CHOLECYSTECTOMY Cholecystectomy COLONOSCOPY 07/13/2016 Repeat 07/2021 COLONOSCOPY FLX DX W/COLLJ SPEC WHEN PFRMD 12/22/10 repeat in COLONOSCOPY FLX DX W/COLLJ SPEC WHEN PFRMD 01-08-14 per repeat in 3-5 years COLONOSCOPY W/BIOPSY SINGLE/MULTIPLE 09/29/09 Cecal carcinoma EGD TRANSORAL BIOPSY SINGLE/MULTIPLE 09/29/09 Small HH HEART CATHETERIZATION 07/30/2018 normal coronaries PAST SURGICAL HISTORY OF 10/17 Rt hemicolectomy Family History FAMILY HISTORY Problem Relation Age of Onset Cancer Sister Metastatic cancer (lung and brain; ?primary); 2007 Patient Allergies ALLERGIES Allergen Reactions Penecillin [Other] Unknown Vioxx [Rofecoxib] Unknown Current Medications Current Outpatient Medications on File Prior to Visit Medication Sig omeprazole (PRILOSEC) 20 mg capsule Take 1 capsule by mouth once daily. Take 30 minutes before breakfast. lisinopril (ZESTRIL, PRINIVIL) 20 mg tablet Take 1 tablet by mouth once daily. carvedilol (COREG) 12.5 mg tablet Take 1 tablet by mouth twice daily. hydroCHLOROthiazide (HYDRODIURIL, ESIDRIX) 25 mg tablet Take 1 tablet by mouth once daily. meclizine (ANTIVERT) 12.5 mg tab Take 1 tablet by mouth three times daily. multivitamin/iron/folic acid (CENTRUM WOMEN ORAL) Take by mouth. TYLENOL ARTHRITIS 650 MG TAB one tablet as needed No current facility-administered medications on file prior to visit. Social History Social History Tobacco Use Smoking status: Never Smoker Smokeless tobacco: Never Used Substance Use Topics Alcohol use: No Drug use: No Review of Symptoms REVIEW OF SYSTEMS See HPI EXAM: BP 126/76 (BP Site: Right Arm, BP Position: Sitting, BP Cuff Size: Regular Adult) Pulse 72 Wt 66.7 kg (147 lb) BMI 25.63 kg/m General Appearance: Well appearing, alert, in no acute distress, well-hydrated, well nourished.. Skin: Has a non-healing lesion left lower anterior neck.. Health Maintenance List DTAP,TDAP,TD(1 - Tdap) due on 09/01/2022 SHINGRIX VACCINE(1 of 2) due on 09/01/2022 DIABETES SCREEN due on 08/28/2024 BONE DENSITY Completed INFLUENZA Completed ADVANCE DIRECTIVE DISCUSSION Completed PNEUMOVAX AGE 65 AND OVER WITH 5YR LOOKBACK Completed COVID-19 VACCINE Completed MENINGOCOCCAL CONJUGATE Aged Out Data reviewed A/P ASSESSMENT/PLAN: 1. Neoplasm of uncertain behavior of skin of neck - ICD9: 238.2, ICD10: D48.5 (primary diagnosis) - excisional biopsy discussed and patient in agreement. - Consent signed. - Sent to path F/u 10-12 days suture removal or sooner if issues as discussed. 2. Encounter for medication refill - ICD9: V68.1, ICD10: Z76.0 Cont - MECLIZINE 12.5 MG TABLET 3. Benign paroxysmal positional vertigo, unspecified laterality - ICD9: 386.11, ICD10: H81.10 Cont prn - MECLIZINE 12.5 MG TABLET Chencho Urbina MD documented in this encounter [facility] 09-06-2021 Miscellaneous Notes Patient was notified Abida Armstrong Ma Let patient know repeat potassium was ok. documented in this encounter [facility] 09-01-2021 Instructions Chencho Urbina MD - 09/01/2021 9:57 AM EDT Please get labs done on or after 02/23/2022 prior to your next visit. documented in this encounter [facility] 09-01-2021 History of Present illness Narrative Medicare Yearly Visit Medical B eligibilty date 11/08/2004 Date of last exam 08/22/2020 PAST MEDICAL HISTORY PAST MEDICAL HISTORY Diagnosis Date Allergic rhinitis due to other allergen Anemia 09/16/2009 Cholecystitis, unspecified Colon Cancer(cecum) 09/29/[address] Davila Disorder of bone and cartilage, unspecified Diverticulitis of colon (without mention of hemorrhage)(562.11) Elevated fasting blood sugar 07/05/2006 Essential hypertension white coat HTN Family history of early CAD 01/14/2018 GERD without esophagitis HH (hiatus hernia) 09/29/2009 Intestinal disaccharidase deficiencies and disaccharide malabsorption Iron deficiency anemia, unspecified Lumbago Malignant neoplasm of colon, unspecified site s/p right hemicolectomy (Dr. Alan Davila) Mixed hyperlipidemia 01/03/2007 Personal history of colon cancer 12/21/2013 s/p right hemicolectomy Sciatica 06/28/2011 Second hand smoke exposure 01/14/2018 Sensory hearing loss, bilateral 01/21/2018 Stage 3 chronic kidney disease (HCC) 01/14/2018 Tinnitus of left ear 01/21/[address] Carrero PAST SURGICAL HISTORY PAST SURGICAL HISTORY Procedure Laterality Date 2D ECHO (EXEP) 05/01/2017 64%, with mild diast dysf and 1+ AL. CARDIAC STRESS TEST 05/01/2017 negative COLONOSCOP W/ OR W/O BRSH SPEC 12/22/10 repeat in COLONOSCOP W/ OR W/O BRSH SPEC 8-1-14 per [facility] repeat in 3-5 years COLONOSCOPY 07/13/2016 Repeat 07/2021 COLONOSCOPY W/BX 09/29/09 Cecal carcinoma EGD W/O BRSH SPECIMEN W/BX 09/29/09 Small HH PAST SURGICAL HISTORY OF 10/17 Rt hemicolectomy REMOVAL GALLBLADDER Cholecystectomy Penecillin [Other]; Vioxx [Rofecoxib] Medications reviewed: Yes FAMILY HISTORY FAMILY HISTORY Problem Relation Age of Onset Cancer Sister Metastatic cancer (lung and brain; ?primary); 2007 SOCIAL HISTORY: Social History Marital status: Spouse name: Years of education: Number of children: Social History Main Topics Smoking status: Never Smoker Smokeless tobacco: Never Used Alcohol use: No Drug use: No Leonor gets exercise a few days a week to stretch her back and other joints. . She watches her diet for sodium, low fat and low cholesterol some of the time. List of current specialists seen: Dr. Davila (Gen Surg) Dr. Powers (ENT) Optho End of Live Planning discussed including patients advanced directive wishes: Yes I am willing to follow Harvey's advanced directives. Depression screen She in the past two weeks denies having felt down, depressed, hopeless or with little interest or pleasure in doing things. Functional Ability/Safety Screen 1. Was the patient's timed Up and Go test unsteady or longer than 30 seconds? No 2. Does the patient need help with the phone, transportation, shopping,preparing meals, housework, laundry, medications or managing money? No 3. Does your home have rugs in the hallway, lack of grab bars in the bathroom, lack of handrails on the stairs or have poor lighting? No Hearing Evaluation: normal PHYSICAL EXAM BP 130/64 Pulse 66 Resp 14 Wt 65.8 kg (145 lb) BMI 25.28 kg/m Alert and oriented X 3: YES Body mass index is 25.28 kg/m . See below ASSESSMENT/PLAN: 80 year old female The following prevention plan was discussed during the office visit and provided to the patient: See below Chencho Urbina MD Chief Complaint Patient presents with: Medicare Wellness Exam HPI Leonor Pal is a 80 year old female who presents here today for extensive exam. Patient with hx of carotid artery disease, elevated blood sugar, HTN, GERD, Iron def anemia, hyperlipidemia, CKD stage 3, chronic back pain, tinnitus as well as those reviewed and addressed below and in ROS. Back pain has been stable. Still doing her HEP Patient has been doing ok with no new issues or concerns. Past medical history, appointments, medications, allergies reviewed. Previous Medical History PAST MEDICAL HISTORY Diagnosis Date Benign paroxysmal positional vertigo 01/14/2019 Carotid stenosis, asymptomatic, bilateral 07/21/2018 US 07/2018: less than 20% asim. Cholecystitis, unspecified Chronic right-sided low back pain Chronic right-sided thoracic back pain 07/17/2018 Colon Cancer(cecum) 09/29/[address] 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 Esparza Facial basal cell cancer 01/12/2019 Left nasal 12/[address] Esparza Family history of early CAD 01/14/2018 GERD without esophagitis HH (hiatus hernia) 09/29/2009 Iron deficiency anemia, unspecified Low blood magnesium 01/14/2019 Malignant neoplasm of colon (HCC) s/p right hemicolectomy (Dr. Alan Davila) Medicare annual wellness visit, subsequent 07/17/2018 Medicare Part B:11/08/2004 Last done: 07/17/2018 Mixed hyperlipidemia 01/03/2007 Personal history of colon cancer 12/21/2013 s/p right hemicolectomy Sciatica 06/28/2011 Seasonal allergic rhinitis Second hand smoke exposure 01/14/2018 Sensory hearing loss, bilateral 01/21/2018 Situational stress 01/14/2019 Stage 3 chronic kidney disease (HCC) 01/14/2018 Tinnitus of left ear 01/21/[address] Carrero Previous Surgical History PAST SURGICAL HISTORY Procedure Laterality Date 2D ECHO (EXEP) 05/01/2017 64%, with mild diast dysf and 1+ AL. CARDIAC STRESS TEST 05/01/2017 negative COLONOSCOP W/ OR W/O BRS SPEC 12/22/10 repeat in COLONOSCOP W/ OR W/O BRS SPEC 8-1-14 per repeat in 3-5 years COLONOSCOPY 07/13/2016 Repeat 07/2021 COLONOSCOPY W/BX 09/29/09 Cecal carcinoma EGD W/O BRSH SPECIMEN W/BX 09/29/09 Small HH HEART CATHETERIZATION 07/30/2018 normal coronaries PAST SURGICAL HISTORY OF 10/17 Rt hemicolectomy REMOVAL GALLBLADDER Cholecystectomy Family History FAMILY HISTORY Problem Relation Age of Onset Cancer Sister Metastatic cancer (lung and brain; ?primary); 2007 Patient Allergies ALLERGIES Allergen Reactions Penecillin [Other] Unknown Vioxx [Rofecoxib] Unknown Current Medications Current Outpatient Medications on File Prior to Visit Medication Sig meclizine (ANTIVERT) 12.5 mg tab Take 1 tablet by mouth three times daily. omeprazole (PRILOSEC) 20 mg capsule Take 1 capsule by mouth once daily. Take 30 minutes before breakfast. lisinopril (ZESTRIL, PRINIVIL) 20 mg tablet Take 1 tablet by mouth once daily. carvedilol (COREG) 12.5 mg tablet Take 1 tablet by mouth twice daily. hydroCHLOROthiazide (HYDRODIURIL, ESIDRIX) 25 mg tablet Take 1 tablet by mouth once daily. cyclobenzaprine (FLEXERIL) 10 mg tablet Take 1 tablet by mouth daily at bedtime. multivitamin/iron/folic acid (CENTRUM WOMEN ORAL) Take by mouth. TYLENOL ARTHRITIS 650 MG TAB one tablet as needed No current facility-administered medications on file prior to visit. Social History Social History Tobacco Use Smoking status: Never Smoker Smokeless tobacco: Never Used Substance Use Topics Alcohol use: No Drug use: No Review of Symptoms REVIEW OF SYSTEMS GENERAL: No weight loss, malaise or fevers HEENT: Negative for frequent or significant headaches, No changes in hearing or vision, no nose bleeds or other nasal problems NECK: Negative for lumps, goiter, pain and significant neck swelling. Has a area on her neck for the past year that is not resolving and is tender to touch. Has sed antibiotic ointment on it with no improvement. RESPIRATORY: Negative for cough, hemoptysis, increased wheezing, COPD, dyspnea or shortness of breath CARDIOVASCULAR: Negative for chest pain, leg swelling, hypertension, CHF or palpitations GI: No nausea, vomiting, or diarrhea, No heartburn or reflux symptoms and no blood : No history of dysuria, blood MUSCULOSKELETAL: Negative for joint pain or swelling, back pain or muscle pain SKIN: See HPI PSYCH: Negative for sleep disturbance, mood disorder and recent psychosocial stressors HEMATOLOGY/LYMPHOLOGY: Negative for prolonged bleeding, bruising easily or swollen nodes ENDOCRINE: Negative for cold or heat intolerance, polyuria, polydipsia and goiter NEURO: No history of headaches, syncope, paralysis, seizures or tremors EXAM: BP 130/64 Pulse 66 Resp 14 Wt 65.8 kg (145 lb) BMI 25.28 kg/m General Appearance: Well appearing, alert, in no acute distress, well-hydrated, well nourished.. Skin: Skin color, texture, turgor normal, no suspicious rashes. Has a non-healing lesion left lower anterior neck. Head: Normocephalic, no masses, lesions, tenderness or abnormalities. Eyes: Anicteric sclera. Pupils are equally round and reactive to light. Extraocular movements are intact. . Ears: External ears, TM's normal, canals clear. Neck: Supple, no adenopathy; thyroid symmetric, normal size, no bruits. Lungs: Lungs clear to auscultation. No wheezing, rhonchi, rales.. Heart: RRR without murmur, gallop, or rubs. No ectopy. Abdomen: Normal abdominal exam, Abdomen soft, non-tender. Bowel sounds normal. No masses, organomegaly. Extremities: No deformities, edema, skin discoloration, clubbing or cyanosis. Musculoskeletal: Muscular strength intact, No joint swelling, deformity, or tenderness. Peripheral Pulses: Normal. Neurologic: Gait normal. Reflexes normal and symmetric. Sensation to light touch and crainal nerves 2-12 intact.. Health Maintenance List DTAP,TDAP,TD(1 - Tdap) Never done SHINGRIX VACCINE(1 of 2) Never done ADVANCE DIRECTIVE DISCUSSION Never done DIABETES SCREEN due on 08/28/2024 BONE DENSITY Completed INFLUENZA Completed PNEUMOVAX AGE 65 AND OVER WITH 5YR LOOKBACK Completed COVID-19 VACCINE Completed MENINGOCOCCAL CONJUGATE Aged Out Data reviewed Component Latest Ref Rng & Units 02/23/2021 08/28/2021 WBC 3.70 - 11.00 k/uL 8.06 6.69 RBC 3.90 - 5.20 m/uL 4.06 4.04 Hemoglobin 11.5 - 15.5 g/dL 13.1 13.0 Hematocrit 36.0 - 46.0 % 37.0 37.5 MCV 80.0 - 100.0 fL 91.1 92.8 MCH 26.0 - 34.0 pg 32.3 32.2 MCHC 30.5 - 36.0 g/dL 35.4 34.7 RDW-CV 11.5 - 15.0 % 12.8 13.3 Platelet Count 150 - 400 k/uL 307 259 MPV 9.0 - 12.7 fL 9.1 10.4 Neut% % 66.0 56.9 Abs Neut (ANC) 1.45 - 7.50 k/uL 5.30 3.80 Lymph% % 20.7 30.0 Abs Lymph 1.00 - 4.00 k/uL 1.67 2.01 [place]% % 9.4 8.4 Abs [place] <0.87 k/uL 0.76 0.56 Eosin% % 2.5 3.1 Abs Eosin <0.46 k/uL 0.20 0.21 Baso% % 1.4 1.2 Abs Baso <0.11 k/uL 0.11 (H) 0.08 Immature Gran % % 0.4 IMMATURE GRANS (ABS) <0.10 k/uL 0.03 NRBC /100 WBC 0.0 Absolute nRBC <0.01 k/uL <0.01 <0.01 DTYPE Auto Nucleated Reds 0 /100 WBC 0.0 Diff Type Auto Diff Protein, Total 6.3 - 8.0 g/dL 6.9 Albumin 3.9 - 4.9 g/dL 3.9 Calcium 8.5 - 10.2 mg/dL 9.5 9.1 Bilirubin, Total 0.2 - 1.3 mg/dL 0.6 Alkaline Phosphatase 34 - 123 U/L 65 AST 13 - 35 U/L 25 ALT 7 - 38 U/L 10 Glucose 74 - 99 mg/dL 108 (H) 104 (H) BUN 7 - 21 mg/dL 11 20 Creatinine 0.58 - 0.96 mg/dL 1.14 (H) 1.30 (H) Sodium 136 - 144 mmol/L 128 (L) 142 Potassium 3.7 - 5.1 mmol/L 3.9 3.6 (L) Chloride 97 - 105 mmol/L 97 107 (H) CO2 22 - 30 mmol/L 21 (L) 21 (L) Anion Gap 9 - 18 mmol/L 10 14 eGFR >=60 mL/min/1.73m 41 (L) Color Yellow Yellow Clarity Clear Clear Glucose, Urine Negative Negative Bilirubin, Urine Negative Negative Ketones, Urine Negative Negative Specific [place], Ur 1.005 - 1.030 1.017 Hemoglobin/Blood,Ur Negative Negative pH, Urine 5.0 - 8.0 5.0 Protein, Urine Negative Negative Urobilinogen Negative Negative Nitrites Negative Negative Leukest Negative 2+ (A) WBC, Urine 0-5 /HPF 0-5 /HPF RBC, Urine 0-3 /HPF 0-3 /HPF Epithelial Cells /HPF Few Hyaline Cast 0 /LPF >10 /LPF (A) eGFR- 55 eGFR-All Other Races . 46 Total Cholesterol, Nonfasting <200 mg/dL 165 192 Triglycerides, Nonfasting <150 mg/dL 82 126 HDL Cholesterol, Nonfasting >39 mg/dL 48 48 LDL Cholesterol, Nonfasting <100 mg/dL 101 (H) 119 (H) Non HDL Cholesterol, Nonfasting <130 mg/dL 117 144 (H) VLDL Cholesterol, Nonfasting <30 mg/dL 16 25 Total Chol/HDL Ratio, Nonfasting <5.10 mg/dL 3.44 4.00 LDL/HDL Ratio, Nonfasting <2.54 mg/dL 2.10 2.48 Iron 41 - 186 ug/dL 68 146 TIBC 232 - 386 ug/dL 274 277 Transferrin Saturation 15 - 57 % 25 53 Hemoglobin A1C 4.3 - 5.6 % 5.6 5.6 Estimated Average Glucose mg/dL 114 114 Vitamin B12 232-1,245 pg/mL 731 Magnesium 1.7 - 2.3 mg/dL 1.6 (L) CEA <=2.9 ng/mL 0.8 A/P ASSESSMENT/PLAN: 1. Medicare annual wellness visit, subsequent - ICD9: V70.0, ICD10: Z00.00 (primary diagnosis) - Counseled on healthy diet and regular exercise - Calcium intake with supplements or by diet of 1000 mg/day for under 50, 2470-0004 mg/day for 50+ - Follow up for annual exam in one year 2. Essential hypertension - ICD9: 401.9, ICD10: I10 - good control - Continue current medication(s) - Recommended regular aerobic exercise. - Recommend home blood pressure monitoring, to bring results in on next visit - Goal of BP <130/80 3. Mixed hyperlipidemia - ICD9: 272.2, ICD10: E78.2 - good control - Encouraged following a low fat, low cholesterol diet. - Discussed the benefits of regular aerobic exercise and weight loss. - Encouraged following a low carbohydrate, healthy oil intake diet. - Continue current therapy. 4. Elevated fasting blood sugar - ICD9: 790.21, ICD10: R73.01 - Controlled with life style changes. 5. GERD without esophagitis - ICD9: 530.81, ICD10: K21.9 - Continue treatment with Prilosec 20 mg QD 6. Iron deficiency anemia, unspecified iron deficiency anemia type - ICD9: 280.9, ICD10: D50.9 - Hg was normal. 7. Stage 3 chronic kidney disease, unspecified whether stage 3a or 3b CKD (HCC) - ICD9: 585.3, ICD10: N18.30 - Sable o changes and patient to increase water intake. 8. Carotid stenosis, asymptomatic, bilateral - ICD9: 433.10, 433.30, ICD10: I65.23 - Clinically stable no changes. 9. Malignant neoplasm of colon, unspecified part of colon (HCC) - ICD9: 153.9, ICD10: C18.9 - Recent scope and lab was good. 10. Low blood magnesium - ICD9: 790.6, ICD10: R79.0 - Hand out on Magnesium foods provided. 11. Low serum potassium - ICD9: 276.8, ICD10: E87.6 Check - POTASSIUM BLD 12. Neoplasm of uncertain behavior of skin of neck - ICD9: 238.2, ICD10: D48.5 - Will have patient return in several weeks for excisional biopsy. Procedure discussed. 13. Living will on file - ICD9: V49.89, ICD10: Z87.898 - Discussed. 14. Advance directive discussed with patient - ICD9: V65.49, ICD10: Z71.89 - ADVANCE CARE PLAN DISCUSSION Signed Prescriptions Disp Refills omeprazole (PRILOSEC) 20 mg capsule 90 capsule 1 Sig: Take 1 capsule by mouth once daily. Take 30 minutes before breakfast. HILLARY: No lisinopril (ZESTRIL, PRINIVIL) 20 mg tablet 90 tablet 1 Sig: Take 1 tablet by mouth once daily. HILLARY: No carvedilol (COREG) 12.5 mg tablet 180 tablet 1 Sig: Take 1 tablet by mouth twice daily. HILLARY: No hydroCHLOROthiazide (HYDRODIURIL, ESIDRIX) 25 mg tablet 90 tablet 1 Sig: Take 1 tablet by mouth once daily. HILLARY: No F/u 6 months routine check BMP, A1c, Lipid, Mg prior I spent a total of 40 minutes on the date of the service which included preparing to see the patient, [id number] patient care, completing clinical documentation, performing a medically appropriate examination, counseling and educating the patient/family/caregiver and ordering medications, tests, or procedures. Chencho Urbina MD documented in this encounter [facility] Evaluation note Diagnosis Medicare annual wellness visit, subsequent- Primary Routine general medical examination at a [facility] care facility Essential hypertension Unspecified essential hypertension Mixed hyperlipidemia Elevated fasting blood sugar Impaired fasting glucose GERD without esophagitis Esophageal reflux Iron deficiency anemia, unspecified iron deficiency anemia type Stage 3 chronic kidney disease, unspecified whether stage 3a or 3b CKD (HCC) Carotid stenosis, asymptomatic, bilateral Malignant neoplasm of colon, unspecified part of colon (HCC) Low blood magnesium Disorders of magnesium metabolism Low serum potassium Neoplasm of uncertain behavior of skin of neck Neoplasm of uncertain behavior of skin Living will on file Advance directive discussed with patient Other specified counseling [facility] Neoplasm of uncertain behavior of skin of neck- Primary Neoplasm of uncertain behavior of skin Encounter for medication refill Issue of repeat prescriptions Benign paroxysmal positional vertigo, unspecified laterality Squamous cell skin cancer Squamous cell carcinoma of skin, site unspecified [facility] Diagnosis Squamous cell skin cancer Squamous cell carcinoma of skin, site unspecified [facility] Diagnosis Squamous cell skin cancer- Primary Squamous cell carcinoma of skin, site unspecified [facility] Diagnosis Essential hypertension- Primary Unspecified essential hypertension Mixed hyperlipidemia Stage 3 chronic kidney disease, unspecified whether stage 3a or 3b CKD (HCC) Elevated fasting blood sugar Impaired fasting glucose Iron deficiency anemia, unspecified iron deficiency anemia type Seasonal allergic rhinitis, unspecified trigger Benign paroxysmal positional vertigo, unspecified laterality Low blood magnesium Disorders of magnesium metabolism Encounter for immunization Need for other specified prophylactic vaccination against single bacterial disease [facility] Diagnosis Situational stress- Primary Other psychological or physical stress, not elsewhere classified Grief reaction Adjustment disorder with depressed mood Encounter for immunization Need for other specified prophylactic vaccination against single bacterial disease [facility] Situational stress- Primary Other psychological or physical stress, not elsewhere classified Grief reaction Adjustment disorder with depressed mood [facility] Diagnosis Hyponatremia- Primary Hyposmolality and/or hyponatremia Hypercalcemia [facility] Diagnosis Medicare annual wellness visit, subsequent- Primary Routine general medical examination at a health care facility Essential hypertension Unspecified essential hypertension Mixed hyperlipidemia Elevated fasting blood sugar Impaired fasting glucose Carotid stenosis, asymptomatic, bilateral Iron deficiency anemia, unspecified iron deficiency anemia type Stage 3a chronic kidney disease (HCC) Malignant neoplasm of colon, unspecified part of colon (HCC) Low blood magnesium Disorders of magnesium metabolism Situational depression Adjustment disorder with depressed mood Benign paroxysmal positional vertigo, unspecified laterality Advance directive discussed with patient Other specified counseling SOB (shortness of breath) Shortness of breath Second hand smoke exposure Other specified personal history presenting hazards to health [facility] Diagnosis SOB (shortness of breath) Shortness of breath Second hand smoke exposure Other specified personal history presenting hazards to health [facility] Diagnosis Carotid stenosis, asymptomatic, bilateral Thyroid nodule Nontoxic uninodular goiter [facility] Diagnosis Urinary tract infection without hematuria, site unspecified- Primary [facility] Diagnosis Nonruptured cerebral aneurysm- Primary Cerebral aneurysm, nonruptured Hypertension, unspecified type [facility] Diagnosis Unspecified deformity of left finger(s)- Primary [facility] Diagnosis Primary osteoarthritis of both hands- Primary Unspecified deformity of left finger(s) [facility] Diagnosis Nontoxic multinodular goiter- Primary Neck mass Swelling, mass, or lump in head and neck Hyperparathyroidism (HCC) Hyperparathyroidism, unspecified [facility] Diagnosis Essential hypertension- Primary Unspecified essential hypertension Mixed hyperlipidemia Elevated fasting blood sugar Impaired fasting glucose GERD without esophagitis Esophageal reflux Stage 3a chronic kidney disease (HCC) Carotid stenosis, asymptomatic, bilateral Iron deficiency anemia, unspecified iron deficiency anemia type Malignant neoplasm of colon, unspecified part of colon (HCC) Nonruptured cerebral aneurysm Cerebral aneurysm, nonruptured Grief reaction Adjustment disorder with depressed mood Hypomagnesemia Disorders of magnesium metabolism Thyroid nodule Nontoxic uninodular goiter Medication management Encounter for long-term (current) use of other medications Nontoxic multinodular goiter Hyperparathyroidism (HCC) Hyperparathyroidism, unspecified [facility] Diagnosis Hyperparathyroidism (HCC)- Primary Hyperparathyroidism, unspecified [facility] Diagnosis Hyperparathyroidism (HCC)- Primary Hyperparathyroidism, unspecified [facility] Diagnosis Neck mass Swelling, mass, or lump in head and neck [facility] Diagnosis Primary hyperparathyroidism (HCC)- Primary Primary hyperparathyroidism Age-related osteoporosis without current pathological fracture Senile osteoporosis [facility] Diagnosis Nonruptured cerebral aneurysm- Primary Cerebral aneurysm, nonruptured [facility] Diagnosis Medicare annual wellness visit, subsequent- Primary Routine general medical examination at a health care facility Advance directive discussed with patient Other specified counseling Essential hypertension Unspecified essential hypertension Mixed hyperlipidemia Primary hyperparathyroidism (HCC) Primary hyperparathyroidism Nonruptured cerebral aneurysm Cerebral aneurysm, nonruptured Stage 3b chronic kidney disease (HCC) Bilateral hearing loss, unspecified hearing loss type GERD without esophagitis Esophageal reflux Hypomagnesemia Disorders of magnesium metabolism Elevated fasting blood sugar Impaired fasting glucose Malignant neoplasm of colon, unspecified part of colon (HCC) Iron deficiency anemia, unspecified iron deficiency anemia type Age-related osteoporosis without current pathological fracture Senile osteoporosis Carotid stenosis, asymptomatic, bilateral [facility] Diagnosis Primary hyperparathyroidism (HCC)- Primary Primary hyperparathyroidism Age-related osteoporosis without current pathological fracture Senile osteoporosis [facility] Diagnosis Grief reaction Adjustment disorder with depressed mood Benign paroxysmal positional vertigo, unspecified laterality [facility] Diagnosis Essential hypertension- Primary Unspecified essential hypertension Stage 3b chronic kidney disease (HCC) Hypomagnesemia Disorders of magnesium metabolism Elevated fasting blood sugar Impaired fasting glucose Mixed hyperlipidemia [facility] Diagnosis Nonruptured cerebral aneurysm Cerebral aneurysm, nonruptured [facility] Diagnosis Primary hyperparathyroidism (HCC)- Primary Primary hyperparathyroidism Age-related osteoporosis without current pathological fracture Senile osteoporosis documented in this encounter [facility] note* Diagnosis Nonruptured cerebral aneurysm- Primary Cerebral aneurysm, 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 [facility] Diagnosis Pre-operative examination- Primary Preoperative examination, unspecified Benign paroxysmal positional vertigo, unspecified laterality Carotid stenosis, asymptomatic, bilateral Chronic right-sided low back pain, unspecified whether sciatica present Malignant neoplasm of colon, unspecified part of colon (HCC) Elevated fasting blood sugar Impaired fasting glucose Essential hypertension Unspecified essential hypertension Facial basal cell cancer Basal cell carcinoma of skin of other and unspecified parts of face GERD without esophagitis Esophageal reflux Iron deficiency anemia, unspecified iron deficiency anemia type Mixed hyperlipidemia Situational depression Adjustment disorder with depressed mood Stage 3a chronic kidney disease (HCC) Thyroid nodule Nontoxic uninodular goiter Hyponatremia Hyposmolality and/or hyponatremia Nonruptured cerebral aneurysm Cerebral aneurysm, nonruptured RBBB Right bundle branch block History of unsteady gait Other specified conditions influencing health status Hyponatremia- Primary Hyposmolality and/or hyponatremia Idiopathic hypotension Hypotension, unspecified Multiple closed fractures of pelvis without disruption of pelvic ring, initial encounter ([facility]) [facility] Diagnosis Pre-operative examination- Primary Preoperative examination, unspecified Benign paroxysmal positional vertigo, unspecified laterality Carotid stenosis, asymptomatic, bilateral Chronic right-sided low back pain, unspecified whether sciatica present Malignant neoplasm of colon, unspecified part of colon (HCC) Elevated fasting blood sugar Impaired fasting glucose Essential hypertension Unspecified essential hypertension Facial basal cell cancer Basal cell carcinoma of skin of other and unspecified parts of face GERD without esophagitis Esophageal reflux Iron deficiency anemia, unspecified iron deficiency anemia type Mixed hyperlipidemia Situational depression Adjustment disorder with depressed mood Stage 3a chronic kidney disease (HCC) Thyroid nodule Nontoxic uninodular goiter Hyponatremia Hyposmolality and/or hyponatremia Nonruptured cerebral aneurysm Cerebral aneurysm, nonruptured RBBB Right bundle branch block History of unsteady gait Other specified conditions influencing health status Essential hypertension- Primary Unspecified essential hypertension Cough, unspecified type Hyponatremia Hyposmolality and/or hyponatremia Need for vaccination Need for prophylactic vaccination and inoculation against unspecified single disease [facility] Diagnosis Swelling of left middle finger Pain involving joint of finger of right hand Pre-operative examination- Primary Preoperative examination, unspecified Benign paroxysmal positional vertigo, unspecified laterality Carotid stenosis, asymptomatic, bilateral Chronic right-sided low back pain, unspecified whether sciatica present Malignant neoplasm of colon, unspecified part of colon (HCC) Elevated fasting blood sugar Impaired fasting glucose Essential hypertension Unspecified essential hypertension Facial basal cell cancer Basal cell carcinoma of skin of other and unspecified parts of face GERD without esophagitis Esophageal reflux Iron deficiency anemia, unspecified iron deficiency anemia type Mixed hyperlipidemia Situational depression Adjustment disorder with depressed mood Stage 3a chronic kidney disease (HCC) Thyroid nodule Nontoxic uninodular goiter Hyponatremia Hyposmolality and/or hyponatremia Nonruptured cerebral aneurysm Cerebral aneurysm, nonruptured RBBB Right bundle branch block History of unsteady gait Other specified conditions influencing health status [facility] Diagnosis Pre-operative examination- Primary Preoperative examination, unspecified Benign paroxysmal positional vertigo, unspecified laterality Carotid stenosis, asymptomatic, bilateral Chronic right-sided low back pain, unspecified whether sciatica present Malignant neoplasm of colon, unspecified part of colon (HCC) Elevated fasting blood sugar Impaired fasting glucose Essential hypertension Unspecified essential hypertension Facial basal cell cancer Basal cell carcinoma of skin of other and unspecified parts of face GERD without esophagitis Esophageal reflux Iron deficiency anemia, unspecified iron deficiency anemia type Mixed hyperlipidemia Situational depression Adjustment disorder with depressed mood Stage 3a chronic kidney disease (HCC) Thyroid nodule Nontoxic uninodular goiter Hyponatremia Hyposmolality and/or hyponatremia Nonruptured cerebral aneurysm Cerebral aneurysm, nonruptured RBBB Right bundle branch block History of unsteady gait Other specified conditions influencing health status Hyponatremia- Primary Hyposmolality and/or hyponatremia [facility] Diagnosis Pre-operative examination- Primary Preoperative examination, unspecified Benign paroxysmal positional vertigo, unspecified laterality Carotid stenosis, asymptomatic, bilateral Chronic right-sided low back pain, unspecified whether sciatica present Malignant neoplasm of colon, unspecified part of colon (HCC) Elevated fasting blood sugar Impaired fasting glucose Essential hypertension Unspecified essential hypertension Facial basal cell cancer Basal cell carcinoma of skin of other and unspecified parts of face GERD without esophagitis Esophageal reflux Iron deficiency anemia, unspecified iron deficiency anemia type Mixed hyperlipidemia Situational depression Adjustment disorder with depressed mood Stage 3a chronic kidney disease (HCC) Thyroid nodule Nontoxic uninodular goiter Hyponatremia Hyposmolality and/or hyponatremia Nonruptured cerebral aneurysm Cerebral aneurysm, nonruptured RBBB Right bundle branch block History of unsteady gait Other specified conditions influencing health status Multiple closed fractures of pelvis without disruption of pelvic ring, initial encounter ([facility])- Primary documented in this encounter [facility] note* Diagnosis Pre-operative examination- Primary Preoperative examination, unspecified Benign paroxysmal positional vertigo, unspecified laterality Carotid stenosis, asymptomatic, bilateral Chronic right-sided low back pain, unspecified whether sciatica present Malignant neoplasm of colon, unspecified part of colon (HCC) Elevated fasting blood sugar Impaired fasting glucose Essential hypertension Unspecified essential hypertension Facial basal cell cancer Basal cell carcinoma of skin of other and unspecified parts of face GERD without esophagitis Esophageal reflux Iron deficiency anemia, unspecified iron deficiency anemia type Mixed hyperlipidemia Situational depression Adjustment disorder with depressed mood Stage 3a chronic kidney disease (HCC) Thyroid nodule Nontoxic uninodular goiter Hyponatremia Hyposmolality and/or hyponatremia Nonruptured cerebral aneurysm Cerebral aneurysm, nonruptured RBBB Right bundle branch block History of unsteady gait Other specified conditions influencing health status Fracture of pubic tubercle, right, with routine healing, subsequent encounter- Primary [facility] Diagnosis Pre-operative examination- Primary Preoperative examination, unspecified Benign paroxysmal positional vertigo, unspecified laterality Carotid stenosis, asymptomatic, bilateral Chronic right-sided low back pain, unspecified whether sciatica present Malignant neoplasm of colon, unspecified part of colon (HCC) Elevated fasting blood sugar Impaired fasting glucose Essential hypertension Unspecified essential hypertension Facial basal cell cancer Basal cell carcinoma of skin of other and unspecified parts of face GERD without esophagitis Esophageal reflux Iron deficiency anemia, unspecified iron deficiency anemia type Mixed hyperlipidemia Situational depression Adjustment disorder with depressed mood Stage 3a chronic kidney disease (HCC) Thyroid nodule Nontoxic uninodular goiter Hyponatremia Hyposmolality and/or hyponatremia Nonruptured cerebral aneurysm Cerebral aneurysm, nonruptured RBBB Right bundle branch block History of unsteady gait Other specified conditions influencing health status Hypokalemia- Primary Hypopotassemia [facility] Diagnosis Pre-operative examination- Primary Preoperative examination, unspecified Benign paroxysmal positional vertigo, unspecified laterality Carotid stenosis, asymptomatic, bilateral Chronic right-sided low back pain, unspecified whether sciatica present Malignant neoplasm of colon, unspecified part of colon (HCC) Elevated fasting blood sugar Impaired fasting glucose Essential hypertension Unspecified essential hypertension Facial basal cell cancer Basal cell carcinoma of skin of other and unspecified parts of face GERD without esophagitis Esophageal reflux Iron deficiency anemia, unspecified iron deficiency anemia type Mixed hyperlipidemia Situational depression Adjustment disorder with depressed mood Stage 3a chronic kidney disease (HCC) Thyroid nodule Nontoxic uninodular goiter Hyponatremia Hyposmolality and/or hyponatremia Nonruptured cerebral aneurysm Cerebral aneurysm, nonruptured RBBB Right bundle branch block History of unsteady gait Other specified conditions influencing health status Primary hyperparathyroidism (HCC)- Primary Primary hyperparathyroidism History of parathyroid surgery Other postprocedural status Age-related osteoporosis without current pathological fracture Senile osteoporosis [facility] Diagnosis Pre-operative examination- Primary Preoperative examination, unspecified Benign paroxysmal positional vertigo, unspecified laterality Carotid stenosis, asymptomatic, bilateral Chronic right-sided low back pain, unspecified whether sciatica present Malignant neoplasm of colon, unspecified part of colon (HCC) Elevated fasting blood sugar Impaired fasting glucose Essential hypertension Unspecified essential hypertension Facial basal cell cancer Basal cell carcinoma of skin of other and unspecified parts of face GERD without esophagitis Esophageal reflux Iron deficiency anemia, unspecified iron deficiency anemia type Mixed hyperlipidemia Situational depression Adjustment disorder with depressed mood Stage 3a chronic kidney disease (HCC) Thyroid nodule Nontoxic uninodular goiter Hyponatremia Hyposmolality and/or hyponatremia Nonruptured cerebral aneurysm Cerebral aneurysm, nonruptured RBBB Right bundle branch block History of unsteady gait Other specified conditions influencing health status Multiple closed fractures of pelvis without disruption of pelvic ring, initial encounter (HCC) documented in this encounter [facility] note* Diagnosis Pre-operative examination- Primary Preoperative examination, unspecified Benign paroxysmal positional vertigo, unspecified laterality Carotid stenosis, asymptomatic, bilateral Chronic right-sided low back pain, unspecified whether sciatica present Malignant neoplasm of colon, unspecified part of colon (HCC) Elevated fasting blood sugar Impaired fasting glucose Essential hypertension Unspecified essential hypertension Facial basal cell cancer Basal cell carcinoma of skin of other and unspecified parts of face GERD without esophagitis Esophageal reflux Iron deficiency anemia, unspecified iron deficiency anemia type Mixed hyperlipidemia Situational depression Adjustment disorder with depressed mood Stage 3a chronic kidney disease (HCC) Thyroid nodule Nontoxic uninodular goiter Hyponatremia Hyposmolality and/or hyponatremia Nonruptured cerebral aneurysm Cerebral aneurysm, nonruptured RBBB Right bundle branch block History of unsteady gait Other specified conditions influencing health status Essential hypertension- Primary Unspecified essential hypertension Encounter for immunization Need for other specified prophylactic vaccination against single bacterial disease Bruising Contusion of unspecified site Hair loss Alopecia, unspecified Mixed hyperlipidemia GERD without esophagitis Esophageal reflux Stage 3b chronic kidney disease (HCC) Elevated fasting blood sugar Impaired fasting glucose Primary hyperparathyroidism (HCC) Primary hyperparathyroidism Iron deficiency anemia, unspecified iron deficiency anemia type Age-related osteoporosis without current pathological fracture Senile osteoporosis Carotid stenosis, asymptomatic, bilateral Nontoxic multinodular goiter Medication management Encounter for long-term (current) use of other medications [facility] Diagnosis Pre-operative examination- Primary Preoperative examination, unspecified Benign paroxysmal positional vertigo, unspecified laterality Carotid stenosis, asymptomatic, bilateral Chronic right-sided low back pain, unspecified whether sciatica present Malignant neoplasm of colon, unspecified part of colon (HCC) Elevated fasting blood sugar Impaired fasting glucose Essential hypertension Unspecified essential hypertension Facial basal cell cancer Basal cell carcinoma of skin of other and unspecified parts of face GERD without esophagitis Esophageal reflux Iron deficiency anemia, unspecified iron deficiency anemia type Mixed hyperlipidemia Situational depression Adjustment disorder with depressed mood Stage 3a chronic kidney disease (HCC) Thyroid nodule Nontoxic uninodular goiter Hyponatremia Hyposmolality and/or hyponatremia Nonruptured cerebral aneurysm Cerebral aneurysm, nonruptured RBBB Right bundle branch block History of unsteady gait Other specified conditions influencing health status Multiple closed fractures of pelvis without disruption of pelvic ring, initial encounter ([facility]) [facility] Diagnosis Pre-operative examination- Primary Preoperative examination, unspecified Benign paroxysmal positional vertigo, unspecified laterality Carotid stenosis, asymptomatic, bilateral Chronic right-sided low back pain, unspecified whether sciatica present Malignant neoplasm of colon, unspecified part of colon (HCC) Elevated fasting blood sugar Impaired fasting glucose Essential hypertension Unspecified essential hypertension Facial basal cell cancer Basal cell carcinoma of skin of other and unspecified parts of face GERD without esophagitis Esophageal reflux Iron deficiency anemia, unspecified iron deficiency anemia type Mixed hyperlipidemia Situational depression Adjustment disorder with depressed mood Stage 3a chronic kidney disease (HCC) Thyroid nodule Nontoxic uninodular goiter Hyponatremia Hyposmolality and/or hyponatremia Nonruptured cerebral aneurysm Cerebral aneurysm, nonruptured RBBB Right bundle branch block History of unsteady gait Other specified conditions influencing health status UTI symptoms- Primary Other symptoms involving urinary system [facility] Diagnosis Pre-operative examination- Primary Preoperative examination, unspecified Benign paroxysmal positional vertigo, unspecified laterality Carotid stenosis, asymptomatic, bilateral Chronic right-sided low back pain, unspecified whether sciatica present Malignant neoplasm of colon, unspecified part of colon (HCC) Elevated fasting blood sugar Impaired fasting glucose Essential hypertension Unspecified essential hypertension Facial basal cell cancer Basal cell carcinoma of skin of other and unspecified parts of face GERD without esophagitis Esophageal reflux Iron deficiency anemia, unspecified iron deficiency anemia type Mixed hyperlipidemia Situational depression Adjustment disorder with depressed mood Stage 3a chronic kidney disease (HCC) Thyroid nodule Nontoxic uninodular goiter Hyponatremia Hyposmolality and/or hyponatremia Nonruptured cerebral aneurysm Cerebral aneurysm, nonruptured RBBB Right bundle branch block History of unsteady gait Other specified conditions influencing health status Sciatica of right side- Primary Sciatica Essential hypertension Unspecified essential hypertension [facility] Diagnosis Pre-operative examination- Primary Preoperative examination, unspecified Benign paroxysmal positional vertigo, unspecified laterality Carotid stenosis, asymptomatic, bilateral Chronic right-sided low back pain, unspecified whether sciatica present Malignant neoplasm of colon, unspecified part of colon (HCC) Elevated fasting blood sugar Impaired fasting glucose Essential hypertension Unspecified essential hypertension Facial basal cell cancer Basal cell carcinoma of skin of other and unspecified parts of face GERD without esophagitis Esophageal reflux Iron deficiency anemia, unspecified iron deficiency anemia type Mixed hyperlipidemia Situational depression Adjustment disorder with depressed mood Stage 3a chronic kidney disease (HCC) Thyroid nodule Nontoxic uninodular goiter Hyponatremia Hyposmolality and/or hyponatremia Nonruptured cerebral aneurysm Cerebral aneurysm, nonruptured RBBB Right bundle branch block History of unsteady gait Other specified conditions influencing health status UTI symptoms- Primary Other symptoms involving urinary system Bacterial sinusitis Unspecified sinusitis (chronic) [facility] this [facility] Diagnosis Pre-operative examination- Primary Preoperative examination, unspecified Benign paroxysmal positional vertigo, unspecified laterality Carotid stenosis, asymptomatic, bilateral Chronic right-sided low back pain, unspecified whether sciatica present Malignant neoplasm of colon, unspecified part of colon (HCC) Elevated fasting blood sugar Impaired fasting glucose Essential hypertension Unspecified essential hypertension Facial basal cell cancer Basal cell carcinoma of skin of other and unspecified parts of face GERD without esophagitis Esophageal reflux Iron deficiency anemia, unspecified iron deficiency anemia type Mixed hyperlipidemia Situational depression Adjustment disorder with depressed mood Stage 3a chronic kidney disease (HCC) Thyroid nodule Nontoxic uninodular goiter Hyponatremia Hyposmolality and/or hyponatremia Nonruptured cerebral aneurysm Cerebral aneurysm, nonruptured RBBB Right bundle branch block History of unsteady gait Other specified conditions influencing health status Essential hypertension- Primary Unspecified essential hypertension Urinary frequency [facility] Diagnosis Pre-operative examination- Primary Preoperative examination, unspecified Benign paroxysmal positional vertigo, unspecified laterality Carotid stenosis, asymptomatic, bilateral Chronic right-sided low back pain, unspecified whether sciatica present Malignant neoplasm of colon, unspecified part of colon (HCC) Elevated fasting blood sugar Impaired fasting glucose Essential hypertension Unspecified essential hypertension Facial basal cell cancer Basal cell carcinoma of skin of other and unspecified parts of face GERD without esophagitis Esophageal reflux Iron deficiency anemia, unspecified iron deficiency anemia type Mixed hyperlipidemia Situational depression Adjustment disorder with depressed mood Stage 3a chronic kidney disease (HCC) Thyroid nodule Nontoxic uninodular goiter Hyponatremia Hyposmolality and/or hyponatremia Nonruptured cerebral aneurysm Cerebral aneurysm, nonruptured RBBB Right bundle branch block History of unsteady gait Other specified conditions influencing health status Microscopic hematuria- Primary Urinary frequency [facility] Diagnosis Pre-operative examination- Primary Preoperative examination, unspecified Benign paroxysmal positional vertigo, unspecified laterality Carotid stenosis, asymptomatic, bilateral Chronic right-sided low back pain, unspecified whether sciatica present Malignant neoplasm of colon, unspecified part of colon (HCC) Elevated fasting blood sugar Impaired fasting glucose Essential hypertension Unspecified essential hypertension Facial basal cell cancer Basal cell carcinoma of skin of other and unspecified parts of face GERD without esophagitis Esophageal reflux Iron deficiency anemia, unspecified iron deficiency anemia type Mixed hyperlipidemia Situational depression Adjustment disorder with depressed mood Stage 3a chronic kidney disease (HCC) Thyroid nodule Nontoxic uninodular goiter Hyponatremia Hyposmolality and/or hyponatremia Nonruptured cerebral aneurysm Cerebral aneurysm, nonruptured RBBB Right bundle branch block History of unsteady gait Other specified conditions influencing health status Microscopic hematuria Urinary frequency [facility] Diagnosis Pre-operative examination- Primary Preoperative examination, unspecified Benign paroxysmal positional vertigo, unspecified laterality Carotid stenosis, asymptomatic, bilateral Chronic right-sided low back pain, unspecified whether sciatica present Malignant neoplasm of colon, unspecified part of colon (HCC) Elevated fasting blood sugar Impaired fasting glucose Essential hypertension Unspecified essential hypertension Facial basal cell cancer Basal cell carcinoma of skin of other and unspecified parts of face GERD without esophagitis Esophageal reflux Iron deficiency anemia, unspecified iron deficiency anemia type Mixed hyperlipidemia Situational depression Adjustment disorder with depressed mood Stage 3a chronic kidney disease (HCC) Thyroid nodule Nontoxic uninodular goiter Hyponatremia Hyposmolality and/or hyponatremia Nonruptured cerebral aneurysm Cerebral aneurysm, nonruptured RBBB Right bundle branch block History of unsteady gait Other specified conditions influencing health status Microscopic hematuria- Primary [facility] Diagnosis Pre-operative examination- Primary Preoperative examination, unspecified Benign paroxysmal positional vertigo, unspecified laterality Carotid stenosis, asymptomatic, bilateral Chronic right-sided low back pain, unspecified whether sciatica present Malignant neoplasm of colon, unspecified part of colon (HCC) Elevated fasting blood sugar Impaired fasting glucose Essential hypertension Unspecified essential hypertension Facial basal cell cancer Basal cell carcinoma of skin of other and unspecified parts of face GERD without esophagitis Esophageal reflux Iron deficiency anemia, unspecified iron deficiency anemia type Mixed hyperlipidemia Situational depression Adjustment disorder with depressed mood Stage 3a chronic kidney disease (HCC) Thyroid nodule Nontoxic uninodular goiter Hyponatremia Hyposmolality and/or hyponatremia Nonruptured cerebral aneurysm Cerebral aneurysm, nonruptured RBBB Right bundle branch block History of unsteady gait Other specified conditions influencing health status UTI symptoms- Primary Other symptoms involving urinary system Musculoskeletal disorder involving upper trapezius muscle Tension headache [facility] Diagnosis Pre-operative examination- Primary Preoperative examination, unspecified Benign paroxysmal positional vertigo, unspecified laterality Carotid stenosis, asymptomatic, bilateral Chronic right-sided low back pain, unspecified whether sciatica present Malignant neoplasm of colon, unspecified part of colon (HCC) Elevated fasting blood sugar Impaired fasting glucose Essential hypertension Unspecified essential hypertension Facial basal cell cancer Basal cell carcinoma of skin of other and unspecified parts of face GERD without esophagitis Esophageal reflux Iron deficiency anemia, unspecified iron deficiency anemia type Mixed hyperlipidemia Situational depression Adjustment disorder with depressed mood Stage 3a chronic kidney disease (HCC) Thyroid nodule Nontoxic uninodular goiter Hyponatremia Hyposmolality and/or hyponatremia Nonruptured cerebral aneurysm Cerebral aneurysm, nonruptured RBBB Right bundle branch block History of unsteady gait Other specified conditions influencing health status Stage 3b chronic kidney disease (HCC)- Primary Nontoxic multinodular goiter Urgency of urination [facility] Diagnosis Pre-operative examination- Primary Preoperative examination, unspecified Benign paroxysmal positional vertigo, unspecified laterality Carotid stenosis, asymptomatic, bilateral Chronic right-sided low back pain, unspecified whether sciatica present Malignant neoplasm of colon, unspecified part of colon (HCC) Elevated fasting blood sugar Impaired fasting glucose Essential hypertension Unspecified essential hypertension Facial basal cell cancer Basal cell carcinoma of skin of other and unspecified parts of face GERD without esophagitis Esophageal reflux Iron deficiency anemia, unspecified iron deficiency anemia type Mixed hyperlipidemia Situational depression Adjustment disorder with depressed mood Stage 3a chronic kidney disease (HCC) Thyroid nodule Nontoxic uninodular goiter Hyponatremia Hyposmolality and/or hyponatremia Nonruptured cerebral aneurysm Cerebral aneurysm, nonruptured RBBB Right bundle branch block History of unsteady gait Other specified conditions influencing health status Chronic pain of both knees [facility] Diagnosis Pre-operative examination- Primary Preoperative examination, unspecified Benign paroxysmal positional vertigo, unspecified laterality Carotid stenosis, asymptomatic, bilateral Chronic right-sided low back pain, unspecified whether sciatica present Malignant neoplasm of colon, unspecified part of colon (HCC) Elevated fasting blood sugar Impaired fasting glucose Essential hypertension Unspecified essential hypertension Facial basal cell cancer Basal cell carcinoma of skin of other and unspecified parts of face GERD without esophagitis Esophageal reflux Iron deficiency anemia, unspecified iron deficiency anemia type Mixed hyperlipidemia Situational depression Adjustment disorder with depressed mood Stage 3a chronic kidney disease (HCC) Thyroid nodule Nontoxic uninodular goiter Hyponatremia Hyposmolality and/or hyponatremia Nonruptured cerebral aneurysm Cerebral aneurysm, nonruptured RBBB Right bundle branch block History of unsteady gait Other specified conditions influencing health status Essential hypertension- Primary Unspecified essential hypertension Dizziness Dizziness and giddiness Carotid stenosis, asymptomatic, bilateral Bilateral leg edema Edema Bilateral calf pain Pain in limb Diminished pulses in lower extremity Other symptoms involving cardiovascular system RLS (restless legs syndrome) Restless legs syndrome (RLS) Chronic pain of both knees Urgency of micturition Dribbling of urine Post-void dribbling Frequent UTI Urinary tract infection, site not specified Current mild episode of major depressive disorder without prior episode [facility] Diagnosis Pre-operative examination- Primary Preoperative examination, unspecified Benign paroxysmal positional vertigo, unspecified laterality Carotid stenosis, asymptomatic, bilateral Chronic right-sided low back pain, unspecified whether sciatica present Malignant neoplasm of colon, unspecified part of colon (HCC) Elevated fasting blood sugar Impaired fasting glucose Essential hypertension Unspecified essential hypertension Facial basal cell cancer Basal cell carcinoma of skin of other and unspecified parts of face GERD without esophagitis Esophageal reflux Iron deficiency anemia, unspecified iron deficiency anemia type Mixed hyperlipidemia Situational depression Adjustment disorder with depressed mood Stage 3a chronic kidney disease (HCC) Thyroid nodule Nontoxic uninodular goiter Hyponatremia Hyposmolality and/or hyponatremia Nonruptured cerebral aneurysm (HCC) Cerebral aneurysm, nonruptured RBBB Right bundle branch block History of unsteady gait Other specified conditions influencing health status Essential hypertension- Primary Unspecified essential hypertension RLS (restless legs syndrome) Restless legs syndrome (RLS) Situational depression Adjustment disorder with depressed mood [facility] Diagnosis Pre-operative examination- Primary Preoperative examination, unspecified Benign paroxysmal positional vertigo, unspecified laterality Carotid stenosis, asymptomatic, bilateral Chronic right-sided low back pain, unspecified whether sciatica present Malignant neoplasm of colon, unspecified part of colon (HCC) Elevated fasting blood sugar Impaired fasting glucose Essential hypertension Unspecified essential hypertension Facial basal cell cancer Basal cell carcinoma of skin of other and unspecified parts of face GERD without esophagitis Esophageal reflux Iron deficiency anemia, unspecified iron deficiency anemia type Mixed hyperlipidemia Situational depression Adjustment disorder with depressed mood Stage 3a chronic kidney disease (HCC) Thyroid nodule Nontoxic uninodular goiter Hyponatremia Hyposmolality and/or hyponatremia Nonruptured cerebral aneurysm (HCC) Cerebral aneurysm, nonruptured RBBB Right bundle branch block History of unsteady gait Other specified conditions influencing health status Medicare annual wellness visit, subsequent- Primary Routine general medical examination at a health care facility Essential hypertension Unspecified essential hypertension Mixed hyperlipidemia Elevated fasting blood sugar Impaired fasting glucose GERD without esophagitis Esophageal reflux Iron deficiency anemia, unspecified iron deficiency anemia type Nonruptured cerebral aneurysm (HCC) Cerebral aneurysm, nonruptured Primary hyperparathyroidism (HCC) Primary hyperparathyroidism Thyroid nodule Nontoxic uninodular goiter Stage 3b chronic kidney disease (HCC) Carotid stenosis, asymptomatic, bilateral Current mild episode of major depressive disorder without prior episode Situational depression Adjustment disorder with depressed mood Malignant neoplasm of colon, unspecified part of colon (HCC) Hypomagnesemia Disorders of magnesium metabolism Age-related osteoporosis without current pathological fracture Senile osteoporosis Benign paroxysmal positional vertigo, unspecified laterality Advance directive discussed with patient Other specified counseling Encounter for screening examination for other mental health and behavioral disorders Need for vaccination Need for prophylactic vaccination and inoculation against unspecified single disease Hyponatremia Hyposmolality and/or hyponatremia RLS (restless legs syndrome) Restless legs syndrome (RLS) documented [facility] this [facility] noteNo assessment information availableWOhio[facility] Work Phone: Reason for referral (narrative)* Outpatient Procedure (Routine) - Authorized Specialty Diagnoses / Procedures Referred By Yazmin macedo Referred To Contact [facility] Diagnoses SOB (shortness of breath) Second hand smoke exposure Procedures SPIROMETRY - BASELINE AND POST DILATOR BRNCDILAT RSPSE SPMTRY PRE&POST-BRNCDILAT ADMN Chencho Urbina MD [address] [place] [address] Respiratory [place] [address] [place] [address] Referral ID Status Reason Start Date Expiration Date Visits Requested Visits Authorized [id number] Authorized Auto-Generat ed Referral 09/20/2022 10/20/2023 1 1 * Outpatient Procedure (Routine) - Authorized Specialty Diagnoses / Procedures Referred By Yazmin macedo Referred To [facility] Diagnoses Carotid stenosis, asymptomatic, bilateral Procedures US CAROTID ARTERIES ASIM VAS LAB DUPLEX SCAN EXTRACRANIAL ART COMPL BI STUDY Chencho Urbina MD [address] [place] [address] [facility] [place] [address] [place] [address] Referral ID Status Reason Start Date Expiration Date Visits Requested Visits Authorized [id number] Authorized Auto-Generat ed Referral 09/20/2022 09/20/2023 1 1 [facility] for referral (narrative)* Diagnostic Procedure Only (Routine) - Authorized Specialty Diagnoses / Procedures Referred By Contac t Referred To Contact US IMAGING Diagnoses Thyroid nodule Procedures US THYROID/PARATHYROID US SOFT TISSUE HEAD & NECK REAL TIME IMGE DOCM Chencho Urbina MD [address] [place] [address] [facility] Referral ID Status Reason Start Date Expiration Date Visits Requested Visits Authorized [id number] Authorized Auto-Generat ed Referral 09/30/2022 10/30/2023 1 1 [facility] for referral (narrative)* Diagnostic Procedure Only (Routine) - Closed Specialty Diagnoses / Procedures Referred By Contac t Referred To Contact XR IMAGING Diagnoses Hyperparathyroidism (HCC) Procedures DXA-AXIAL SKELETON WITH VFA DXA BONE DENSITY [place]UD[place] [address] [place] [address] Xr Imaging [id number] Referral ID Status Reason Start Date Expiration Date V isits Requested Visits Authorized [id number] Closed Auto-Generate d Referral 03/07/2023 04/05/2024 1 1 [facility] for referral (narrative)* Diagnostic Procedure Only (Routine) - Closed Specialty Diagnoses / Procedures Referred By Contac t Referred To Contact XR IMAGING Diagnoses Swelling of left middle finger Pain involving joint of finger of right hand Procedures XR HAND GENERAL 3V PA/LAT/OBL BILATERAL RADEX HAND MINIMUM 3 VIEWS Chencho Urbina MD [address] [place] [address] [place] [address] Referral ID Status Reason Start Date Expiration Date V isits Requested Visits Authorized [id number] Closed Auto-Generate d Referral 11/15/2022 12/15/2023 1 1 [facility] for referral (narrative)* Diagnostic Procedure Only (Routine) - New Request Specialty Diagnoses / Procedures Referred By Contac t Referred To Contact XR IMAGING Diagnoses Multiple closed fractures of pelvis without disruption of pelvic ring, initial encounter ([facility]) Procedures XR PELVIS 2V INLET/OUTLET RADIOLOGIC EXAMINATION PELVIS 1/2 VIEWS Jonny Suero MD [address] [place] [id number] [place] [address] Referral ID Status Reason Start Date Expiration Date Visits Requested Visits Authorized [id number] New Request Auto-Generat ed Referral 03/10/2024 04/09/2025 1 1 [facility] for referral (narrative)* Diagnostic Procedure Only (Routine) - Authorized Specialty Diagnoses / Procedures Referred By Contac t Referred To Contact US IMAGING Diagnoses Microscopic hematuria Urinary frequency Procedures US KIDNEY/BLADDER US RETROPERITONEAL REAL TIME W/IMAGE COMPLETE Cassandra Arshad PA-C [address] [place] [address] [place] [address] Referral ID Status Reason Start Date Expiration Date Visits Requested Visits Authorized [id number] Authorized Auto-Generat ed Referral 06/18/2024 07/18/2025 1 1 [facility] for referral (narrative)No reason for referral information availableWOhioHealth [facility] Work Phone: Reason for visit Narrative* Diagnostic Procedure Only (Routine) - Closed Specialty Diagnoses / Procedures Referred By Contac t Referred To Contact XR IMAGING Diagnoses Swelling of left middle finger Pain involving joint of finger of right hand Procedures XR HAND GENERAL 3V PA/LAT/OBL BILATERAL RADEX HAND MINIMUM 3 VIEWS Chencho Urbina MD [address] [place] [address] [place] [address] Referral ID Status Reason Start Date Expiration Date V isits Requested Visits Authorized [id number] Closed Auto-Generate d Referral 11/15/2022 12/15/2023 1 1 [facility] for visit Narrative* Diagnostic Procedure Only (Routine) - Closed Specialty Diagnoses / Procedures Referred By Contac t Referred To Contact XR IMAGING Diagnoses Multiple closed fractures of pelvis without disruption of pelvic ring, initial encounter ([facility]) Procedures XR PELVIS 2V INLET/OUTLET RADIOLOGIC EXAMINATION PELVIS 1/2 VIEWS Jonny Suero MD [address] [place] [address] [place] [address] Referral ID Status Reason Start Date Expiration Date V isits Requested Visits Authorized [id number] Closed Auto-Generate d Referral 03/10/2024 04/09/2025 1 1 [facility] for visit Narrative* Diagnostic Procedure Only (Routine) - Closed Specialty Diagnoses / Procedures Referred By Contac t Referred To Contact XR IMAGING Diagnoses Chronic pain of both knees Procedures XR KNEE GENERAL 4V AP BOTH/PA BOTH/LAT/MERC BILATERAL RADIOLOGIC EXAM KNEE COMPLETE 4/MORE VIEWS Chencho Urbian MD [address] [place] [address] Phone: tel: fax: [place] [address] Referral ID Status Reason Start Date Expiration Date V isits Requested Visits Authorized [id number] Closed Auto-Generate d Referral 09/02/2024 10/02/2025 1 1 [facility] Advance Directives No Advanced Directives Records FoundDocuments on File Type Date Recorded Patient 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 Advance Directive(s) 07/13/2016 7:02 AM Advance Directive(s) 07/10/2016 12:11 PM Advance Directive(s) 01/08/2014 6:14 AM Advance Directive(s) 01/08/2014 6:23 AM Documents on File Type Date Recorded Patient 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 Advance Directive(s) 01/08/2014 6:14 AM Advance Directive(s) 01/08/2014 6:23 AM Documents on File Type Date Recorded Patient 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 Advance Directive(s) 01/08/2014 6:14 AM Advance Directive(s) 01/08/2014 6:23 AM Documents on File Type Date Recorded Patient 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 Advance Directive(s) 11/21/2022 8:52 AM Advance Directive(s) 01/08/2014 6:23 AM Documents on File Type Date Recorded Patient 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 Advance Directive(s) 11/21/2022 8:52 AM Advance Directive(s) 01/08/2014 6:23 AM Documents on File Type Date Recorded Patient 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 Advance Directive(s) 04/27/2024 2:55 PM Documents on File Type Date Recorded Patient 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 Advance Directive(s) 04/27/2024 2:55 PM Advance Directive Response Recorded Date/ Time Advance Directives Yes July 8:16am Reason for Referral Specialty Diagnoses / Procedures Referred By Contac t Referred To Contact MR IMAGING Diagnoses Nonruptured cerebral aneurysm Procedures MRA BRAIN WO IVCON MRA, HEAD W/O CONTRAST Pablo Keyes MD [address] [place] [address] Mr Imaging Referral ID Status Reason Start Date Expiration Date Visits Requested Visits Authorized [id number] Authorized Auto-Generat ed Referral 05/15/2023 12/13/2023 1 1 Specialty Diagnoses / Procedures Referred By Contac t Referred To Contact Orthopedics Diagnoses Unspecified deformity of left finger(s) Procedures CONSULT TO ORTHOPAEDICS OFFICE/OUTPATIENT [facility] 60-74 MINUTES Elisa Doherty APRN.SITE ADMINISTRATOR [address] [place] [address] Referral ID Status Reason Start Date Expiration Date Visits Requested Visits Authorized [id number] Authorized PCP Requested Referral 11/23/2022 11/23/2023 1 1 Specialty Diagnoses / Procedures Referred By Contac t Referred To Contact CT IMAGING Diagnoses Neck mass Procedures CT NECK SOFT TISSUE W IVCON CT SOFT TISSUE NECK W/CONTRAST MATERIAL Cassandra Arshad PA-C [address] [place] [address] Ct [facility] [place] [address] Referral ID Status Reason Start Date Expiration Date V isits Requested Visits Authorized [id number] Closed Auto-Generate d Referral 10/19/2022 11/18/2023 1 1 Specialty Diagnoses / Procedures Referred By Contac t Referred To Contact CT IMAGING Diagnoses Nonruptured cerebral aneurysm Procedures CTA NECK W IVCON CT ANGIOGRAPHY NECK W/CONTRAST/NONCONTRAST Kierra Alfaro MD [address] [place] [address] [address] [facility] [place] [address] Referral ID Status Reason Start Date Expiration Date Visits Requested Visits Authorized [id number] Authorized Auto-Generat ed Referral 11/15/2023 06/14/2024 1 1 Specialty Diagnoses / Procedures Referred By Contac t Referred To Contact CT IMAGING Diagnoses Nonruptured cerebral aneurysm Procedures CTA HEAD W IVCON CT ANGIOGRAPHY HEAD W/CONTRAST/NONCONTRAST Kierra Alfaro MD [address] [place] [address] [address] [facility] [place] [address] Referral ID Status Reason Start Date Expiration Date Visits Requested Visits Authorized [id number] Authorized Auto-Generat ed Referral 11/15/2023 06/14/2024 1 1 Specialty Diagnoses / Procedures Referred By Contac t Referred To Contact Ent - Otolaryngology Diagnoses Bilateral hearing loss, unspecified hearing loss type Procedures CONSULT TO ENT OFFICE/OUTPATIENT [facility] 60 MINUTES Cassandra Arshad PA-C [address] [place] [address] Referral ID Status Reason Start Date Expiration Date Visits Requested Visits Authorized [id number] Authorized PCP Requested Referral 09/24/2023 09/23/2024 1 1 Referral ID Status Reason Start Date Expiration Date V isits Requested Visits Authorized [id number] Closed Auto-Generate d Referral 11/15/2023 06/14/2024 1 1 Referral ID Status Reason Start Date Expiration Date V isits Requested Visits Authorized [id number] Closed Auto-Generate d Referral 11/15/2023 06/14/2024 1 1 Specialty Diagnoses / Procedures Referred By Contac t Referred To Contact Vascular Medicine Diagnoses 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) Procedures CONSULT TO VASCULAR MEDICINE OFFICE/OUTPATIENT [facility] 60 MINUTES Kierra Alfaro MD [address] [place] [address] Referral ID Status Reason Start Date Expiration Date Visits Requested Visits Authorized [id number] Authorized PCP Requested Referral 11/28/2023 11/27/2024 1 1 Specialty Diagnoses / Procedures Referred By Contac t Referred To Contact CT IMAGING Diagnoses 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) Procedures CTA NECK W IVCON CT ANGIOGRAPHY NECK W/CONTRAST/NONCONTRAST Kierra Alfaro MD [address] [place] [address] [address] [facility] [place] [address] Referral ID Status Reason Start Date Expiration Date Visits Requested Visits Authorized [id number] New Request Auto-Generat ed Referral 11/27/2024 12/27/2024 1 1 Referral ID Status Reason Start Date Expiration Date Visits Requested Visits Authorized [id number] New Request Auto-Generat ed Referral 11/27/2024 12/27/2024 1 1 Specialty Diagnoses / Procedures Referred By Contac t Referred To Contact Orthopedics Diagnoses Multiple closed fractures of pelvis without disruption of pelvic ring, initial encounter (HCC) Procedures CONSULT TO ORTHOPAEDICS OFFICE/OUTPATIENT [facility] 60 MINUTES Chencho Urbina MD [facility] [place] [address] Referral ID Status Reason Start Date Expiration Date Visits Requested Visits Authorized [id number] Authorized PCP Requested Referral 02/20/2024 02/19/2025 1 1 Specialty Diagnoses / Procedures Referred By Contac t Referred To Contact Nephrology Diagnoses Hyponatremia Procedures CONSULT TO NEPHROLOGY OFFICE/OUTPATIENT [facility] 60 MINUTES Chencho Urbina MD [address] [place] [address] Referral ID Status Reason Start Date Expiration Date Visits Requested Visits Authorized [id number] Authorized PCP Requested Referral 02/20/2024 02/19/2025 1 1 Summary Purpose Family History No Family History Records Found Relationship Condition Age at Onset Recorded Date/T barbara Not Specified Coronary artery disease Unknown Malignant neoplasm Unknown father Myocardial infarction 48 brother Cerebrovascular accident (CVA) Unknown mother Cerebrovascular accident (CVA) Unknown Chief Complaint and Reason for Visit Chief Complaint Admit Date [facility] September 28, 2024 9 :24am [facility] October 21, 2024 5:0 0am Additional Source Comments Source Comments (unrecognize d section and content) In the event this informatio n is protected by the Federal Confidentiality of Alcohol and Drug Abuse Patient Records regulations: The Federal rules restrict any use of the information to criminally investigate or prosecute any alcohol or drug abuse patient.[facility] the event this information is protected by the Federal Confidentiality of Alcohol and Drug Abuse Patient Records regulations: The Federal rules restrict any use of the information to criminally investigate or prosecute any alcohol or drug abuse patient.[facility] CenterIn the event this information is protected by the Federal Confidentiality of Alcohol and Drug Abuse Patient Records regulations: The Federal rules restrict any use of the information to criminally investigate or prosecute any alcohol or drug abuse patient.[facility] CenterIn the event this information is protected by the Federal Confidentiality of Alcohol and Drug Abuse Patient Records regulations: The Federal rules restrict any use of the information to criminally investigate or prosecute any alcohol or drug abuse patient.[facility] CenterIn the event this information is protected by the Federal Confidentiality of Alcohol and Drug Abuse Patient Records regulations: The Federal rules restrict any use of the information to criminally investigate or prosecute any alcohol or drug abuse patient.[facility] CenterIn the event this information is protected by the Federal Confidentiality of Alcohol and Drug Abuse Patient Records regulations: The Federal rules restrict any use of the information to criminally investigate or prosecute any alcohol or drug abuse patient.[facility] CenterIn the event this information is protected by the Federal Confidentiality of Alcohol and Drug Abuse Patient Records regulations: The Federal rules restrict any use of the information to criminally investigate or prosecute any alcohol or drug abuse patient.[facility] CenterIn the event this information is protected by the Federal Confidentiality of Alcohol and Drug Abuse Patient Records regulations: The Federal rules restrict any use of the information to criminally investigate or prosecute any alcohol or drug abuse patient.[facility] CenterIn the event this information is protected by the Federal Confidentiality of Alcohol and Drug Abuse Patient Records regulations: The Federal rules restrict any use of the information to criminally investigate or prosecute any alcohol or drug abuse patient.[facility] CenterIn the event this information is protected by the Federal Confidentiality of Alcohol and Drug Abuse Patient Records regulations: The Federal rules restrict any use of the information to criminally investigate or prosecute any alcohol or drug abuse patient.[facility] CenterIn the event this information is protected by the Federal Confidentiality of Alcohol and Drug Abuse Patient Records regulations: The Federal rules restrict any use of the information to criminally investigate or prosecute any alcohol or drug abuse patient.[facility] CenterIn the event this information is protected by the Federal Confidentiality of Alcohol and Drug Abuse Patient Records regulations: The Federal rules restrict any use of the information to criminally investigate or prosecute any alcohol or drug abuse patient.[facility] CenterIn the event this information is protected by the Federal Confidentiality of Alcohol and Drug Abuse Patient Records regulations: The Federal rules restrict any use of the information to criminally investigate or prosecute any alcohol or drug abuse patient.[facility] CenterIn the event this information is protected by the Federal Confidentiality of Alcohol and Drug Abuse Patient Records regulations: The Federal rules restrict any use of the information to criminally investigate or prosecute any alcohol or drug abuse patient.[facility] CenterIn the event this information is protected by the Federal Confidentiality of Alcohol and Drug Abuse Patient Records regulations: The Federal rules restrict any use of the information to criminally investigate or prosecute any alcohol or drug abuse patient.[facility] CenterIn the event this information is protected by the Federal Confidentiality of Alcohol and Drug Abuse Patient Records regulations: The Federal rules restrict any use of the information to criminally investigate or prosecute any alcohol or drug abuse patient.[facility] CenterIn the event this information is protected by the Federal Confidentiality of Alcohol and Drug Abuse Patient Records regulations: The Federal rules restrict any use of the information to criminally investigate or prosecute any alcohol or drug abuse patient.[facility] CenterIn the event this information is protected by the Federal Confidentiality of Alcohol and Drug Abuse Patient Records regulations: The Federal rules restrict any use of the information to criminally investigate or prosecute any alcohol or drug abuse patient.[facility] CenterIn the event this information is protected by the Federal Confidentiality of Alcohol and Drug Abuse Patient Records regulations: The Federal rules restrict any use of the information to criminally investigate or prosecute any alcohol or drug abuse patient.[facility] CenterIn the event this information is protected by the Federal Confidentiality of Alcohol and Drug Abuse Patient Records regulations: The Federal rules restrict any use of the information to criminally investigate or prosecute any alcohol or drug abuse patient.[facility] CenterIn the event this information is protected by the Federal Confidentiality of Alcohol and Drug Abuse Patient Records regulations: The Federal rules restrict any use of the information to criminally investigate or prosecute any alcohol or drug abuse patient.[facility] CenterIn the event this information is protected by the Federal Confidentiality of Alcohol and Drug Abuse Patient Records regulations: The Federal rules restrict any use of the information to criminally investigate or prosecute any alcohol or drug abuse patient.[facility] CenterIn the event this information is protected by the Federal Confidentiality of Alcohol and Drug Abuse Patient Records regulations: The Federal rules restrict any use of the information to criminally investigate or prosecute any alcohol or drug abuse patient.[facility] CenterIn the event this information is protected by the Federal Confidentiality of Alcohol and Drug Abuse Patient Records regulations: The Federal rules restrict any use of the information to criminally investigate or prosecute any alcohol or drug abuse patient.[facility] CenterIn the event this information is protected by the Federal Confidentiality of Alcohol and Drug Abuse Patient Records regulations: The Federal rules restrict any use of the information to criminally investigate or prosecute any alcohol or drug abuse patient.[facility] CenterIn the event this information is protected by the Federal Confidentiality of Alcohol and Drug Abuse Patient Records regulations: The Federal rules restrict any use of the information to criminally investigate or prosecute any alcohol or drug abuse patient.[facility] CenterIn the event this information is protected by the Federal Confidentiality of Alcohol and Drug Abuse Patient Records regulations: The Federal rules restrict any use of the information to criminally investigate or prosecute any alcohol or drug abuse patient.[facility] CenterIn the event this information is protected by the Federal Confidentiality of Alcohol and Drug Abuse Patient Records regulations: The Federal rules restrict any use of the information to criminally investigate or prosecute any alcohol or drug abuse patient.[facility] CenterIn the event this information is protected by the Federal Confidentiality of Alcohol and Drug Abuse Patient Records regulations: The Federal rules restrict any use of the information to criminally investigate or prosecute any alcohol or drug abuse patient.[facility] CenterIn the event this information is protected by the Federal Confidentiality of Alcohol and Drug Abuse Patient Records regulations: The Federal rules restrict any use of the information to criminally investigate or prosecute any alcohol or drug abuse patient.[facility] CenterIn the event this information is protected by the Federal Confidentiality of Alcohol and Drug Abuse Patient Records regulations: The Federal rules restrict any use of the information to criminally investigate or prosecute any alcohol or drug abuse patient.[facility] CenterIn the event this information is protected by the Federal Confidentiality of Alcohol and Drug Abuse Patient Records regulations: The Federal rules restrict any use of the information to criminally investigate or prosecute any alcohol or drug abuse patient.[facility] CenterIn the event this information is protected by the Federal Confidentiality of Alcohol and Drug Abuse Patient Records regulations: The Federal rules restrict any use of the information to criminally investigate or prosecute any alcohol or drug abuse patient.[facility] CenterIn the event this information is protected by the Federal Confidentiality of Alcohol and Drug Abuse Patient Records regulations: The Federal rules restrict any use of the information to criminally investigate or prosecute any alcohol or drug abuse patient.[facility] CenterIn the event this information is protected by the Federal Confidentiality of Alcohol and Drug Abuse Patient Records regulations: The Federal rules restrict any use of the information to criminally investigate or prosecute any alcohol or drug abuse patient.[facility] CenterIn the event this information is protected by the Federal Confidentiality of Alcohol and Drug Abuse Patient Records regulations: The Federal rules restrict any use of the information to criminally investigate or prosecute any alcohol or drug abuse patient.[facility] CenterIn the event this information is protected by the Federal Confidentiality of Alcohol and Drug Abuse Patient Records regulations: The Federal rules restrict any use of the information to criminally investigate or prosecute any alcohol or drug abuse patient.[facility] CenterIn the event this information is protected by the Federal Confidentiality of Alcohol and Drug Abuse Patient Records regulations: The Federal rules restrict any use of the information to criminally investigate or prosecute any alcohol or drug abuse patient.[facility] CenterIn the event this information is protected by the Federal Confidentiality of Alcohol and Drug Abuse Patient Records regulations: The Federal rules restrict any use of the information to criminally investigate or prosecute any alcohol or drug abuse patient.[facility] CenterIn the event this information is protected by the Federal Confidentiality of Alcohol and Drug Abuse Patient Records regulations: The Federal rules restrict any use of the information to criminally investigate or prosecute any alcohol or drug abuse patient.[facility] CenterIn the event this information is protected by the Federal Confidentiality of Alcohol and Drug Abuse Patient Records regulations: The Federal rules restrict any use of the information to criminally investigate or prosecute any alcohol or drug abuse patient.[facility] CenterIn the event this information is protected by the Federal Confidentiality of Alcohol and Drug Abuse Patient Records regulations: The Federal rules restrict any use of the information to criminally investigate or prosecute any alcohol or drug abuse patient.[facility] CenterIn the event this information is protected by the Federal Confidentiality of Alcohol and Drug Abuse Patient Records regulations: The Federal rules restrict any use of the information to criminally investigate or prosecute any alcohol or drug abuse patient.[facility] CenterIn the event this information is protected by the Federal Confidentiality of Alcohol and Drug Abuse Patient Records regulations: The Federal rules restrict any use of the information to criminally investigate or prosecute any alcohol or drug abuse patient.[facility] CenterIn the event this information is protected by the Federal Confidentiality of Alcohol and Drug Abuse Patient Records regulations: The Federal rules restrict any use of the information to criminally investigate or prosecute any alcohol or drug abuse patient.[facility] CenterIn the event this information is protected by the Federal Confidentiality of Alcohol and Drug Abuse Patient Records regulations: The Federal rules restrict any use of the information to criminally investigate or prosecute any alcohol or drug abuse patient.[facility] CenterIn the event this information is protected by the Federal Confidentiality of Alcohol and Drug Abuse Patient Records regulations: The Federal rules restrict any use of the information to criminally investigate or prosecute any alcohol or drug abuse patient.[facility] CenterIn the event this information is protected by the Federal Confidentiality of Alcohol and Drug Abuse Patient Records regulations: The Federal rules restrict any use of the information to criminally investigate or prosecute any alcohol or drug abuse patient.[facility] CenterIn the event this information is protected by the Federal Confidentiality of Alcohol and Drug Abuse Patient Records regulations: The Federal rules restrict any use of the information to criminally investigate or prosecute any alcohol or drug abuse patient.[facility] CenterIn the event this information is protected by the Federal Confidentiality of Alcohol and Drug Abuse Patient Records regulations: The Federal rules restrict any use of the information to criminally investigate or prosecute any alcohol or drug abuse patient.[facility] CenterIn the event this information is protected by the Federal Confidentiality of Alcohol and Drug Abuse Patient Records regulations: The Federal rules restrict any use of the information to criminally investigate or prosecute any alcohol or drug abuse patient.[facility] CenterIn the event this information is protected by the Federal Confidentiality of Alcohol and Drug Abuse Patient Records regulations: The Federal rules restrict any use of the information to criminally investigate or prosecute any alcohol or drug abuse patient.[facility] CenterIn the event this information is protected by the Federal Confidentiality of Alcohol and Drug Abuse Patient Records regulations: The Federal rules restrict any use of the information to criminally investigate or prosecute any alcohol or drug abuse patient.[facility] CenterIn the event this information is protected by the Federal Confidentiality of Alcohol and Drug Abuse Patient Records regulations: The Federal rules restrict any use of the information to criminally investigate or prosecute any alcohol or drug abuse patient.[facility] CenterIn the event this information is protected by the Federal Confidentiality of Alcohol and Drug Abuse Patient Records regulations: The Federal rules restrict any use of the information to criminally investigate or prosecute any alcohol or drug abuse patient.[facility] CenterIn the event this information is protected by the Federal Confidentiality of Alcohol and Drug Abuse Patient Records regulations: The Federal rules restrict any use of the information to criminally investigate or prosecute any alcohol or drug abuse patient.[facility] CenterIn the event this information is protected by the Federal Confidentiality of Alcohol and Drug Abuse Patient Records regulations: The Federal rules restrict any use of the information to criminally investigate or prosecute any alcohol or drug abuse patient.[facility] CenterIn the event this information is protected by the Federal Confidentiality of Alcohol and Drug Abuse Patient Records regulations: The Federal rules restrict any use of the information to criminally investigate or prosecute any alcohol or drug abuse patient.[facility] CenterIn the event this information is protected by the Federal Confidentiality of Alcohol and Drug Abuse Patient Records regulations: The Federal rules restrict any use of the information to criminally investigate or prosecute any alcohol or drug abuse patient.[facility] CenterIn the event this information is protected by the Federal Confidentiality of Alcohol and Drug Abuse Patient Records regulations: The Federal rules restrict any use of the information to criminally investigate or prosecute any alcohol or drug abuse patient.[facility] CenterIn the event this information is protected by the Federal Confidentiality of Alcohol and Drug Abuse Patient Records regulations: The Federal rules restrict any use of the information to criminally investigate or prosecute any alcohol or drug abuse patient.[facility] CenterIn the event this information is protected by the Federal Confidentiality of Alcohol and Drug Abuse Patient Records regulations: The Federal rules restrict any use of the information to criminally investigate or prosecute any alcohol or drug abuse patient.[facility] CenterIn the event this information is protected by the Federal Confidentiality of Alcohol and Drug Abuse Patient Records regulations: The Federal rules restrict any use of the information to criminally investigate or prosecute any alcohol or drug abuse patient.[facility] CenterIn the event this information is protected by the Federal Confidentiality of Alcohol and Drug Abuse Patient Records regulations: The Federal rules restrict any use of the information to criminally investigate or prosecute any alcohol or drug abuse patient.[facility] CenterIn the event this information is protected by the Federal Confidentiality of Alcohol and Drug Abuse Patient Records regulations: The Federal rules restrict any use of the information to criminally investigate or prosecute any alcohol or drug abuse patient.[facility] CenterIn the event this information is protected by the Federal Confidentiality of Alcohol and Drug Abuse Patient Records regulations: The Federal rules restrict any use of the information to criminally investigate or prosecute any alcohol or drug abuse patient.[facility] CenterIn the event this information is protected by the Federal Confidentiality of Alcohol and Drug Abuse Patient Records regulations: The Federal rules restrict any use of the information to criminally investigate or prosecute any alcohol or drug abuse patient.[facility] CenterIn the event this information is protected by the Federal Confidentiality of Alcohol and Drug Abuse Patient Records regulations: The Federal rules restrict any use of the information to criminally investigate or prosecute any alcohol or drug abuse patient.[facility] CenterIn the event this information is protected by the Federal Confidentiality of Alcohol and Drug Abuse Patient Records regulations: The Federal rules restrict any use of the information to criminally investigate or prosecute any alcohol or drug abuse patient.[facility] CenterIn the event this information is protected by the Federal Confidentiality of Alcohol and Drug Abuse Patient Records regulations: The Federal rules restrict any use of the information to criminally investigate or prosecute any alcohol or drug abuse patient.[facility] CenterIn the event this information is protected by the Federal Confidentiality of Alcohol and Drug Abuse Patient Records regulations: The Federal rules restrict any use of the information to criminally investigate or prosecute any alcohol or drug abuse patient.[facility] CenterIn the event this information is protected by the Federal Confidentiality of Alcohol and Drug Abuse Patient Records regulations: The Federal rules restrict any use of the information to criminally investigate or prosecute any alcohol or drug abuse patient.[facility] CenterIn the event this information is protected by the Federal Confidentiality of Alcohol and Drug Abuse Patient Records regulations: The Federal rules restrict any use of the information to criminally investigate or prosecute any alcohol or drug abuse patient.[facility] CenterIn the event this information is protected by the Federal Confidentiality of Alcohol and Drug Abuse Patient Records regulations: The Federal rules restrict any use of the information to criminally investigate or prosecute any alcohol or drug abuse patient.[facility] CenterIn the event this information is protected by the Federal Confidentiality of Alcohol and Drug Abuse Patient Records regulations: The Federal rules restrict any use of the information to criminally investigate or prosecute any alcohol or drug abuse patient.[facility] CenterIn the event this information is protected by the Federal Confidentiality of Alcohol and Drug Abuse Patient Records regulations: The Federal rules restrict any use of the information to criminally investigate or prosecute any alcohol or drug abuse patient.[facility] CenterIn the event this information is protected by the Federal Confidentiality of Alcohol and Drug Abuse Patient Records regulations: The Federal rules restrict any use of the information to criminally investigate or prosecute any alcohol or drug abuse patient.[facility] CenterIn the event this information is protected by the Federal Confidentiality of Alcohol and Drug Abuse Patient Records regulations: The Federal rules restrict any use of the information to criminally investigate or prosecute any alcohol or drug abuse patient.[facility] CenterIn the event this information is protected by the Federal Confidentiality of Alcohol and Drug Abuse Patient Records regulations: The Federal rules restrict any use of the information to criminally investigate or prosecute any alcohol or drug abuse patient.[facility] CenterIn the event this information is protected by the Federal Confidentiality of Alcohol and Drug Abuse Patient Records regulations: The Federal rules restrict any use of the information to criminally investigate or prosecute any alcohol or drug abuse patient.[facility] CenterIn the event this information is protected by the Federal Confidentiality of Alcohol and Drug Abuse Patient Records regulations: The Federal rules restrict any use of the information to criminally investigate or prosecute any alcohol or drug abuse patient.[facility] CenterIn the event this information is protected by the Federal Confidentiality of Alcohol and Drug Abuse Patient Records regulations: The Federal rules restrict any use of the information to criminally investigate or prosecute any alcohol or drug abuse patient.[facility] CenterIn the event this information is protected by the Federal Confidentiality of Alcohol and Drug Abuse Patient Records regulations: The Federal rules restrict any use of the information to criminally investigate or prosecute any alcohol or drug abuse patient.[facility] CenterIn the event this information is protected by the Federal Confidentiality of Alcohol and Drug Abuse Patient Records regulations: The Federal rules restrict any use of the information to criminally investigate or prosecute any alcohol or drug abuse patient.[facility] CenterIn the event this information is protected by the Federal Confidentiality of Alcohol and Drug Abuse Patient Records regulations: The Federal rules restrict any use of the information to criminally investigate or prosecute any alcohol or drug abuse patient.[facility] CenterIn the event this information is protected by the Federal Confidentiality of Alcohol and Drug Abuse Patient Records regulations: The Federal rules restrict any use of the information to criminally investigate or prosecute any alcohol or drug abuse patient.[facility] CenterIn the event this information is protected by the Federal Confidentiality of Alcohol and Drug Abuse Patient Records regulations: The Federal rules restrict any use of the information to criminally investigate or prosecute any alcohol or drug abuse patient.[facility] CenterIn the event this information is protected by the Federal Confidentiality of Alcohol and Drug Abuse Patient Records regulations: The Federal rules restrict any use of the information to criminally investigate or prosecute any alcohol or drug abuse patient.[facility] CenterIn the event this information is protected by the Federal Confidentiality of Alcohol and Drug Abuse Patient Records regulations: The Federal rules restrict any use of the information to criminally investigate or prosecute any alcohol or drug abuse patient.[facility] CenterIn the event this information is protected by the Federal Confidentiality of Alcohol and Drug Abuse Patient Records regulations: The Federal rules restrict any use of the information to criminally investigate or prosecute any alcohol or drug abuse patient.[facility] CenterIn the event this information is protected by the Federal Confidentiality of Alcohol and Drug Abuse Patient Records regulations: The Federal rules restrict any use of the information to criminally investigate or prosecute any alcohol or drug abuse patient.[facility] CenterIn the event this information is protected by the Federal Confidentiality of Alcohol and Drug Abuse Patient Records regulations: The Federal rules restrict any use of the information to criminally investigate or prosecute any alcohol or drug abuse patient.[facility] CenterIn the event this information is protected by the Federal Confidentiality of Alcohol and Drug Abuse Patient Records regulations: The Federal rules restrict any use of the information to criminally investigate or prosecute any alcohol or drug abuse patient.[facility] Reason for Visit (unrecogniz ed section and content) Reason Comments Medicare Wellness Exam Reason Comments Results Reason Comments LESION, SKIN Patient is here for removal of lesion on front side of neck Reason Comments Suture Removal Reason Onset Date Comments Refill Request 11/03/2021 Reason Comments 6 Month Exam Reason Comments [facility] Rough go depressio n; passed recently Reason Comments Patient Update Reason Comments Follow Up 4 week follow up Reason Comments Medicare Wellness Exam Reason Comments Patient Question Reason Comments Spirometry Specialty Diagnoses / Procedures Referred By Contac t Referred To Contact [facility] Diagnoses SOB (shortness of breath) Second hand smoke exposure Procedures SPIROMETRY - BASELINE AND POST DILATOR BRNCDILAT RSPSE SPMTRY PRE&POST-BRNCDILAT ADMN Chencho Urbina MD [address] [place] [address] Respiratory [place] [address] [place] [address] Referral ID Status Reason Start Date Expiration Date V isits Requested Visits Authorized [id number] Closed Auto-Generate d Referral 09/20/2022 10/20/2023 1 1 Reason Comments Results Appointment Reason Comments New Patient Evaluation Reason Comments 1 week f/u Left middle finger s welling-worse since GLADIS Reason Comments New Pain Specialty Diagnoses / Procedures Referred By Contac t Referred To Contact Orthopedics Diagnoses Unspecified deformity of left finger(s) Procedures CONSULT TO ORTHOPAEDICS OFFICE/OUTPATIENT NEW HIGH MDM 60-74 MINUTES Elisa Doherty APRN.SITE ADMINISTRATOR [address] [place] [address] Referral ID Status Reason Start Date Expiration Date V isits Requested Visits Authorized [id number] Closed PCP Requested Referral 11/23/2022 11/23/2023 1 1 Reason Comments Thyroid Problem Specialty Diagnoses / Procedures Referred By Contac t Referred To Contact General Surgery Diagnoses Neck mass Procedures CONSULT TO GENERAL SURGERY OFFICE/OUTPATIENT [facility] 60-74 MINUTES Chencho Urbina MD [address] [place] [id number] Referral ID Status Reason Start Date Expiration Date V isits Requested Visits Authorized [id number] Closed PCP Requested Referral 11/02/2022 11/02/2023 1 1 Reason Comments Recheck 6 months Reason Comments Hyperparathyroidism Reason Comments Radiology CT Specialty Diagnoses / Procedures Referred By Contac t Referred To Contact CT IMAGING Diagnoses Neck mass Procedures CT NECK SOFT TISSUE W IVCON CT SOFT TISSUE NECK W/CONTRAST MATERIAL Cassandra Arshad PA-C [address] [place] [address] Ct Imaging [id number] Referral ID Status Reason Start Date Expiration Date V isits Requested Visits Authorized [id number] Closed Auto-Generate d Referral 10/19/2022 11/18/2023 1 1 Reason Comments Calcium Problem Reason Comments Established Patient Reason Comments Medicare Wellness Exam Reason Comments Rectal Problem Reason Onset Date Comments Refill Request 11/01/2023 Reason Comments labs pulled early Reason Comments Radiology CT Specialty Diagnoses / Procedures Referred By Contac t Referred To Contact CT IMAGING Diagnoses Nonruptured cerebral aneurysm Procedures CTA NECK W IVCON CT ANGIOGRAPHY NECK W/CONTRAST/NONCONTRAST Kierra Alfaro MD [address] [place] [address] Ct Imaging [id number] Referral ID Status Reason Start Date Expiration Date V isits Requested Visits Authorized [id number] Closed Auto-Generate d Referral 11/15/2023 06/14/2024 1 1 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 Referred By Contac t Referred To Contact Neurology / NEUROSURGERY Diagnoses follow up after CTA head/neck Procedures VIDEO SPEC EST Kierra Alfaro MD [address] [place] [address] Kierra Alfaro MD [address] [place] [address] Referral ID Status Reason Start Date Expiration Date Visits Requested Visits Authorized [id number] Pending Review OON/Self Pay Override 11/28/2023 03/07/2025 1 1 Reason Onset Date Comments Refill Request 01/06/2024 Reason Onset Date Comments Refill Request 01/14/2024 Reason Comments ER F/U [facility] Reason Comments Hospital F/U [facility] Reason Comments PT- [facility] HH- POC Reason Onset Date Comments Transition Of Care 02/17/2024 [facility], Discharge 02/16/24 Reason Comments Medication Problem Reason Comments Follow Up Hospital follow up Reason Comments Medication Question Reason Comments Follow Up Reason Onset Date Comments Transition Of Care 03/04/2024 [facility] Follow-up Day 17 Reason Onset Date Comments Transition Of Care 03/11/2024 [facility] Follow-up Day 24 Reason Comments [facility] HH, PT plan of care Reason Comments Osteoporosis Reason Comments Established Patient R superior and infer ior pubic ramus fractures. Xrays today Fracture R superior and infer ior pubic ramus fractures. Xrays today Specialty Diagnoses / Procedures Referred By Contac t Referred To Contact Orthopedics Diagnoses Multiple closed fractures of pelvis without disruption of pelvic ring, initial encounter (HCC) Procedures CONSULT TO ORTHOPAEDICS OFFICE/OUTPATIENT [facility] 60 MINUTES Chencho Urbina MD [address] [place] [address] Referral ID Status Reason Start Date Expiration Date V isits Requested Visits Authorized [id number] Closed PCP Requested Referral 02/20/2024 02/19/2025 1 1 Reason Comments Fax Request Reason Comments UTI Urinary frequency an d burning x2 weeks Reason Comments Back Pain Leg Pain Reason Comments Cough Headache Head Congestion Fatigue Reason Comments Recheck Blood pressure Reason Comments Radiology US Specialty Diagnoses / Procedures Referred By Contac t Referred To Contact [facility] IMAGING Diagnoses Microscopic hematuria Urinary frequency Procedures US KIDNEY/BLADDER US RETROPERITONEAL REAL TIME W/IMAGE COMPLETE Cassandra Arshad PA-C [address] [place] [address] [place] [address] Referral ID Status Reason Start Date Expiration Date V isits Requested Visits Authorized [id number] Closed Auto-Generate d Referral 06/18/2024 07/18/2025 1 1 Reason Comments Orders Reason Comments UTI Urinary frequency, H A, dizziness x 1 week Reason Onset Date Comments Results 08/19/2024 Reason Comments Patient Update Appointment Reason Comments UTI Depression/right sci atica/UTI frequency over the last few months Reason Comments Forms Reason Comments UTI Headache Reason Comments Outside Reason Comments Consult Urology Reason Onset Date Comments Refill Request 11/10/2024 Care Teams (unrecognized sec tion and content) Blender/Braze Applicator Relationship Specialty Start Date End Date Chencho Urbina MD [address] [place] [address] [phone] PCP - General Family Practice 01/14/18 Blender/Braze Applicator Relationship Specialty Start Date End Date Chencho Urbina MD [address] [place] [address] [phone] PCP - General Family Practice 01/14/18 Blender/Braze Applicator Relationship Specialty Start Date End Date Chencho Urbina MD [address] [place] [address] [phone] PCP - General Family Practice 01/14/18 Blender/Braze Applicator Relationship Specialty Start Date End Date Chencho Urbina MD [address] [place] [phone] PCP - General Family Practice 01/14/18 Blender/Braze Applicator Relationship Specialty Start Date End Date Chencho Urbina MD [address] [place] [phone] PCP - General Family Practice 01/14/18 Blender/Braze Applicator Relationship Specialty Start Date End Date Chencho Urbina MD [address] [place] [address] PCP - General Family Practice 01/14/18 Blender/Braze Applicator Relationship Specialty Start Date End Date Chencho Urbina MD [address] [place] [address] PCP - General Family Medicine 01/14/18 Blender/Braze Applicator Relationship Specialty Start Date End Date Chencho Urbina MD [address] [place] [address] PCP - General Family Medicine 01/14/18 Blender/Braze Applicator Relationship Specialty Start Date End Date Chencho Urbina MD [address] [place] [address], [place] [address] PCP - General Family Medicine 01/14/18 Blender/Braze Applicator Relationship Specialty Start Date End Date Chencho Urbina MD [address] [place] [address], [place] [address] PCP - General Family Medicine 01/14/18 Blender/Braze Applicator Relationship Specialty Start Date End Date Chencho Urbina MD [facility] [place] [address] PCP - General Family Medicine 01/14/18 Blender/Braze Applicator Relationship Specialty Start Date End Date Chencho Urbina MD [address] [place] [address], [place] [address] PCP - General Family Medicine 01/14/18 Blender/Braze Applicator Relationship Specialty Start Date End Date Chencho Urbina MD [facility] [place] [address] PCP - General Family Medicine 01/14/18 Blender/Braze Applicator Relationship Specialty Start Date End Date Chencho Urbina MD [address] [place] [address], [place] [address] PCP - General Family Medicine 01/14/18 Chencho Urbina MD [address] [place] [address], [place] [address] Referring Family Medicine 10/31/22 Blender/Braze Applicator Relationship Specialty Start Date End Date Chencho Urbina MD [address] [place] [address] PCP - General Family Medicine 01/14/18 Chencho Urbina MD [address] [place] [address] Referring Family Medicine 10/31/22 Blender/Braze Applicator Relationship Specialty Start Date End Date Chencho Urbina MD [address] [place] [address] PCP - General Family Medicine 01/14/18 Chencho Urbina MD [address] [place] [address] Referring Family Medicine 10/31/22 Blender/Braze Applicator Relationship Specialty Start Date End Date Chencho Urbina MD [address] [place] [address] PCP - General Family Medicine 01/14/18 Chencho Urbina MD [address] [place] [address] Referring Family Medicine 10/31/22 Blender/Braze Applicator Relationship Specialty Start Date End Date Chencho Urbina MD [address] [place] [address] PCP - General Family Medicine 01/14/18 Chencho Urbina MD [address] [place] [address] Referring Family Medicine 10/31/22 Blender/Braze Applicator Relationship Specialty Start Date End Date Chencho Urbina MD [address] [facility] [place] [address] PCP - General Family Medicine 01/14/18 Chencho Urbina MD [address] [place] [address] Referring Family Medicine 10/31/22 Blender/Braze Applicator Relationship Specialty Start Date End Date Chencho Urbina MD [address] [place] [address] PCP - General Family Medicine 01/14/18 Chencho Urbina MD [address] [place] [address] Referring Family Medicine 10/31/22 Blender/Braze Applicator Relationship Specialty Start Date End Date Chencho Urbina MD [address] [place] [address] PCP - General Family Medicine 01/14/18 Chencho Urbina MD [address] [place] [address] Referring Family Medicine 10/31/22 Blender/Braze Applicator Relationship Specialty Start Date End Date Chencho Urbina MD [address] [place] [address] PCP - General Family Medicine 01/14/18 Blender/Braze Applicator Relationship Specialty Start Date End Date Chencho Urbina MD [address] [place] [address] PCP - General Family Medicine 01/14/18 Chencho Urbina MD [address] [place] [address] Referring Family Medicine 10/31/22 Blender/Braze Applicator Relationship Specialty Start Date End Date Chencho Urbina MD [address] [place] [address] PCP - General Family Medicine 01/14/18 Chencho Urbina MD [address] [place] [address] Referring Family Medicine 10/31/22 Blender/Braze Applicator Relationship Specialty Start Date End Date Chencho Urbina MD [address] [place] [address] PCP - General Family Medicine 01/14/18 Chencho Urbina MD [address] [place] [address] Referring Family Medicine 10/31/22 Blender/Braze Applicator Relationship Specialty Start Date End Date Chencho Urbina MD [address] [place] [address] PCP - General Family Medicine 01/14/18 Chencho Urbina MD [address] [place] [address] Referring Family Medicine 10/31/22 Blender/Braze Applicator Relationship Specialty Start Date End Date Chencho Urbina MD [address] [place] [address] PCP - General Family Medicine 01/14/18 Chencho Urbina MD [address] [place] [address] Referring Family Medicine 10/31/22 Blender/Braze Applicator Relationship Specialty Start Date End Date Chencho Urbina MD [address] [facility] [place] [address] PCP - General Family Medicine 01/14/18 Chencho Urbina MD [address] [place] [address] Referring Family Medicine 10/31/22 Blender/Braze Applicator Relationship Specialty Start Date End Date Chencho Urbina MD [address] [place] [address] PCP - General Family Medicine 01/14/18 Chencho Urbina MD [address] [place] [address] Referring Family Medicine 10/31/22 Blender/Braze Applicator Relationship Specialty Start Date End Date Chencho Urbina MD [address] [place] [address] PCP - General Family Medicine 01/14/18 Chencho Urbina MD [address] [place] [address] Referring Family Medicine 10/31/22 Blender/Braze Applicator Relationship Specialty Start Date End Date Chencho Urbina MD [address] [place] [address] PCP - General Family Medicine 01/14/18 Chencho Urbina MD [address] [place] [address] Referring Family Medicine 10/31/22 Blender/Braze Applicator Relationship Specialty Start Date End Date Chencho Urbina MD [address] [place] [address] PCP - General Family Medicine 01/14/18 Chencho Urbina MD [address] [place] [address] Referring Family Medicine 10/31/22 Blender/Braze Applicator Relationship Specialty Start Date End Date Chencho Urbina MD [address] [place] [address] PCP - General Family Medicine 01/14/18 Chencho Urbina MD [address] [place] [address] Referring Family Medicine 10/31/22 Blender/Braze Applicator Relationship Specialty Start Date End Date Chencho Urbina MD [address] [place] [address] PCP - General Family Medicine 01/14/18 Chencho Urbina MD [address] [place] [address] Referring Family Medicine 10/31/22 Blender/Braze Applicator Relationship Specialty Start Date End Date Chencho Urbina MD [address] [place] [address] PCP - General Family Medicine 01/14/18 Chencho Urbina MD [address] [place] [address] Referring Family Medicine 10/31/22 Kaity Quintero, MILLICENT [address] [place] [address] Primary Care Epic Application Coordinator 02/17/24 Blender/Braze Applicator Relationship Specialty Start Date End Date Chencho Urbina MD [address] [facility] [address] PCP - General Family Medicine 01/14/18 Chencho Urbina MD [address] [place] [address] Referring Family Medicine 10/31/22 Kaity Quintero, MILLICENT [address] [place] [address] Primary Care Epic Application Coordinator 02/17/24 Blender/Braze Applicator Relationship Specialty Start Date End Date Chencho Urbina MD [address] [place] [address] PCP - General Family Medicine 01/14/18 Chencho Urbina MD [address] [place] [address] Referring Family Medicine 10/31/22 Kaity Quintero, MILLICENT [address] [place] [address] Primary Care Epic Application Coordinator 02/17/24 Blender/Braze Applicator Relationship Specialty Start Date End Date Chencho Urbina MD [address] [place] [address] PCP - General Family Medicine 01/14/18 Chencho Urbina MD [address] [place] [address] Referring Family Medicine 10/31/22 Kaity Quintero, MILLICENT [address] [place] [address] Primary Care Epic Application Coordinator 02/17/24 Blender/Braze Applicator Relationship Specialty Start Date End Date Chencho Urbina MD [address] [place] [address] PCP - General Family Medicine 01/14/18 Chencho Urbina MD [address] [place] [address] Referring Family Medicine 10/31/22 Kaity Quintero, RN [address] [place] [address] Primary Care Epic Application Coordinator 02/17/24 Blender/Braze Applicator Relationship Specialty Start Date End Date Chencho Uribna MD [address] [place] [address] PCP - General Family Medicine 01/14/18 Chencho Urbina MD [address] [place] [address] Referring Family Medicine 10/31/22 Kaity Quintero, MILLICENT [address] [place] [address] Primary Care Epic Application Coordinator 02/17/24 Blender/Braze Applicator Relationship Specialty Start Date End Date Chencho Urbina MD [address] [place] [address] PCP - General Family Medicine 01/14/18 Chencho Urbina MD [address] [place] [address] Referring Family Medicine 10/31/22 Kaity Quintero, RN [address] [place] [address] Primary Care Epic Application Coordinator 02/17/24 Blender/Braze Applicator Relationship Specialty Start Date End Date Chencho Urbina MD [address] [place] [address] PCP - General Family Medicine 01/14/18 Chencho Urbina MD [address] [place] [address] Referring Family Medicine 10/31/22 Blender/Braze Applicator Relationship Specialty Start Date End Date Chencho Urbina MD [address] [place] [address] PCP - General Family Medicine 01/14/18 Chencho Urbina MD [address] [place] [address] Referring Family Medicine 10/31/22 Kaity Quintero, RN [address] [place] [address] Primary Care Epic Application Coordinator 02/17/24 Blender/Braze Applicator Relationship Specialty Start Date End Date Chencho Urbina MD [address] [place] [address] PCP - General Family Medicine 01/14/18 Chencho Urbina MD [address] [place] [address] Referring Family Medicine 10/31/22 Kaity Quintero, RN [address] [place] [address] Primary Care Epic Application Coordinator 02/17/24 Blender/Braze Applicator Relationship Specialty Start Date End Date Chencho Urbina MD [address] [place] [address] PCP - General Family Medicine 01/14/18 Chencho Urbina MD [address] [place] [address] Referring Family Medicine 10/31/22 Kaity Quintero, RN [address] [place] [address] Primary Care Epic Application Coordinator 02/17/24 Blender/Braze Applicator Relationship Specialty Start Date End Date Chencho Urbina MD [address] [place] [address] PCP - General Family Medicine 01/14/18 Chencho Urbina MD [address] [place] [address] Referring Family Medicine 10/31/22 Kaity Quintero, RN [address] [place] [address] Primary Care Epic Application Coordinator 02/17/24 03/17/24 Blender/Braze Applicator Relationship Specialty Start Date End Date Chencho Urbina MD [address] [place] [address] PCP - General Family Medicine 01/14/18 Chencho Urbina MD [address] [place] [address] Referring Family Medicine 10/31/22 Kaity Quintero, MILLICENT [address] [place] [address] Primary Care Epic Application Coordinator 02/17/24 03/17/24 Blender/Braze Applicator Relationship Specialty Start Date End Date Chencho Urbina MD [address] [place] [address] PCP - General Family Medicine 01/14/18 Chencho Urbina MD [address] [place] [address] Referring Family Medicine 10/31/22 Kaity Quintero, RN [address] [place] [address] Primary Care Epic Application Coordinator 02/17/24 03/17/24 Blender/Braze Applicator Relationship Specialty Start Date End Date Chencho Urbnia MD [address] [place] [address] PCP - General Family Medicine 01/14/18 Chencho Urbina MD [address] [place] [address] Referring Family Medicine 10/31/22 Blender/Braze Applicator Relationship Specialty Start Date End Date Chencho Urbina MD [address] [place] [address] PCP - General Family Medicine 01/14/18 Chencho Urbina MD [address] [place] [address] Referring Family Medicine 10/31/22 Blender/Braze Applicator Relationship Specialty Start Date End Date Chencho Urbina MD [address] [place] [address] PCP - General Family Medicine 01/14/18 Chencho Urbina MD [address] [place] [address] Referring Family Medicine 10/31/22 Blender/Braze Applicator Relationship Specialty Start Date End Date Chencho Urbina MD [address] [place] [address] PCP - General Family Medicine 01/14/18 Chencho Urbina MD [address] [place] [address] Referring Family Medicine 10/31/22 Kaity Quintero, MILLICENT [address] [place] [address] Primary Care Epic Application Coordinator 02/17/24 03/17/24 Blender/Braze Applicator Relationship Specialty Start Date End Date Chencho Urbina MD [address] [place] [address] PCP - General Family Medicine 01/14/18 Chencho Urbina MD [address] [place] [address] Referring Family Medicine 10/31/22 Blender/Braze Applicator Relationship Specialty Start Date End Date Chencho Urbina MD [address] [place] [address] PCP - General Family Medicine 01/14/18 Chencho Urbina MD [address] [place] [address] Referring Family Medicine 10/31/22 Blender/Braze Applicator Relationship Specialty Start Date End Date Chencho Urbina MD [address] [place] [address] PCP - General Family Medicine 01/14/18 Chencho Urbina MD [address] [place] [address] Referring Family Medicine 10/31/22 Blender/Braze Applicator Relationship Specialty Start Date End Date Chencho Urbina MD [address] [place] [address] PCP - General Family Medicine 01/14/18 Chencho Urbina MD [address] [place] [address] Referring Family Medicine 10/31/22 Blender/Braze Applicator Relationship Specialty Start Date End Date Chencho Urbina MD [address] [place] [address] PCP - General Family Medicine 01/14/18 Chencho Urbina MD [address] [place] [address] Referring Family Medicine 10/31/22 Elisa Doherty, ARNAUD.SITE ADMINISTRATOR [address] [place] [address] Pick Up Man Family Medicine 05/16/24 Cassandra Arshad PA-C [address] [place] [address] Pick Up Man Family [facility] 05/16/24 Blender/Braze Applicator Relationship Specialty Start Date End Date Chencho Urbina MD [address] [place] [address] PCP - General Family Medicine 01/14/18 Chencho Urbina MD [address] [place] [address] Referring Family Medicine 10/31/22 Elisa Doherty, ARNAUD.SITE ADMINISTRATOR [address] [place] [address] [facility] Family [facility] 05/16/24 Cassandra Arshad PA-C [address] [place] [address] [facility] 05/16/24 Blender/Braze Applicator Relationship Specialty Start Date End Date Chencho Urbina MD [address] [place] [address] PCP - General Family Medicine 01/14/18 Chencho Urbina MD [address] [place] [address] Referring Family Medicine 10/31/22 Elisa Doherty APRN.SITE ADMINISTRATOR [address] [place] [address] [facility] 05/16/24 Cassandra Arshad PA-C [address] [place] [address] [facility] 05/16/24 Blender/Braze Applicator Relationship Specialty Start Date End Date Chencho Urbina MD [address] [place] [address] PCP - General Family Medicine 01/14/18 Chencho Urbina MD [address] [place] [address] Referring Family Medicine 10/31/22 Elisa Doherty APRN.SITE ADMINISTRATOR [address] [place] [address] [facility] 05/16/24 Cassandra Arshad PA-C [address] [place] [address] [facility] 05/16/24 Blender/Braze Applicator Relationship Specialty Start Date End Date Chencho Urbina MD [address] [place] [address] PCP - General Family Medicine 01/14/18 Chencho Urbina MD [address] [place] [address] Referring Family Medicine 10/31/22 Elisa Doherty APRN.SITE ADMINISTRATOR [address] [place] [address] Pick Up Man Family Medicine 05/16/24 Cassandra Arshad PA-C [address] [place] [address] [facility] Family [facility] 05/16/24 Blender/Braze Applicator Relationship Specialty Start Date End Date Chencho Urbina MD [address] [place] [address] PCP - General Family Medicine 01/14/18 Chencho Urbina MD [address] [place] [address] Referring Family Medicine 10/31/22 Elisa Doherty, ARNAUD.SITE ADMINISTRATOR [address] [place] [address] [facility] Family [facility] 05/16/24 Cassandra Arshad PA-C [address] [place] [address] [facility] 05/16/24 Blender/Braze Applicator Relationship Specialty Start Date End Date Chencho Urbina MD [address] [place] [address] PCP - General Family Medicine 01/14/18 Chencho Urbina MD [address] [place] [address] Referring Family Medicine 10/31/22 Elisa Doherty APRN.SITE ADMINISTRATOR [address] [place] [address] [facility] Family Medicine 05/16/24 Cassandra Arshad PA-C [address] [place] [address] Pick Up Man Family [facility] 05/16/24 Blender/Braze Applicator Relationship Specialty Start Date End Date Chencho Urbina MD [address] [place] [address] PCP - General Family Medicine 01/14/18 Chencho Urbina MD [address] [place] [address] Referring Family Medicine 10/31/22 Elisa Doherty APRN.SITE ADMINISTRATOR [address] [place] [address] Pick Up Man Family [facility] 05/16/24 Cassandra Arshad PA-C [address] [place] [address] [facility] Blender/Braze Applicator Relationship Specialty Start Date End Date Chencho Urbina MD [address] [place] [address] PCP - General Family Medicine 01/14/18 Chencho Urbina MD [address] [place] [address] Referring Family Medicine 10/31/22 Elisa Doherty APRN.SITE ADMINISTRATOR [address] [place] [address] [facility] 05/16/24 Cassandra Arshad PA-C [address] [place] [address] [facility] 05/16/24 Blender/Braze Applicator Relationship Specialty Start Date End Date Chencho Urbina MD [address] [place] [address] PCP - General Family Medicine 01/14/18 Chencho Urbina MD [address] [place] [address] Referring Family Medicine 10/31/22 Elisa Doherty APRN.SITE ADMINISTRATOR [address] [place] [address] [facility] 05/16/24 Cassandra Arshad PA-C [address] [place] [address] Pick Up Man Family [facility] 05/16/24 Blender/Braze Applicator Relationship Specialty Start Date End Date Chencho Urbina MD [address] [place] [address] PCP - General Family Medicine 01/14/18 Chencho Urbina MD [address] [place] [address] Referring Family Medicine 10/31/22 Elisa Doherty APRN.SITE ADMINISTRATOR [address] [place] [address] [facility] 05/16/24 Cassandra Arshad PA-C [address] [place] [address] [facility] 05/16/24 Blender/Braze Applicator Relationship Specialty Start Date End Date Chencho Urbina MD [address] [place] [address] PCP - General Family Medicine 01/14/18 Chencho Urbina MD [address] [place] [address] Referring Family Medicine 10/31/22 Elisa Doherty, ACID LOADER.SITE ADMINISTRATOR [address] [place] [address] [facility] 05/16/24 Cassandra Arshad PA-C [address] [place] [address] [facility] 05/16/24 Blender/Braze Applicator Relationship Specialty Start Date End Date Chencho Urbina MD [address] [place] [address] PCP - General Family Medicine 09/14/24 Chencho Urbina MD [address] [place] [address] Referring Family Medicine 10/31/22 Elisa Doherty, ACID LOADER.SITE ADMINISTRATOR [address] [place] [address] [facility] 05/16/24 Cassandra Arshad PA-C [address] [place] [address] [facility] 05/16/24 Blender/Braze Applicator Relationship Specialty Start Date End Date Chencho Urbina MD [address] [place] [address] PCP - General Family Medicine 09/14/24 Chencho Urbina MD [address] [place] [address] Referring Family Medicine 10/31/22 Elisa Doherty APRN.SITE ADMINISTRATOR [address] [place] [address] [facility] 05/16/24 Cassandra Arshad PA-C [facility] [place] [address] [facility] 05/16/24 Blender/Braze Applicator Relationship Specialty Start Date End Date Chencho Urbina MD [address] [place] [address] PCP - General Family Medicine 09/14/24 Chencho Urbina MD [facility] [place] [address] Referring Family Medicine 10/31/22 Elisa Doherty, ARNAUD.SITE ADMINISTRATOR [facility] [place] [address] [facility] 05/16/24 Cassandra Arshad PA-C [address] [place] [address] [facility] 05/16/24 Blender/Braze Applicator Relationship Specialty Start Date End Date Chencho Urbina MD [address] [place] [address] PCP - General Family Medicine 09/14/24 Chencho Urbina MD [address] [place] [address] Referring Family Medicine 10/31/22 Elisa Doherty APRN.SITE ADMINISTRATOR [address] [place] [address] [facility] 05/16/24 Cassandra Arshad PA-C [address] [place] [address] [facility] 05/16/24 Blender/Braze Applicator Relationship Specialty Start Date End Date Chencho Urbina MD [address] [place] [address] PCP - General Family Medicine 09/14/24 Chencho Urbina MD [facility] [place] [address] Referring Family Medicine 10/31/22 Elisa Doherty APRN.SITE ADMINISTRATOR [address] [place] [address] [facility] 05/16/24 Cassandra Arshad PA-C [address] [place] [address] [facility] 05/16/24 Blender/Braze Applicator Relationship Specialty Start Date End Date Chencho Urbina MD [address] [place] [address] PCP - General Family Medicine 01/14/18 09/13/24 Chencho Urbina MD [address] [place] [address] PCP - General Family Medicine 09/14/24 Chencho Urbina MD [address] [place], [place] [address] Referring Family Medicine 10/31/22 Elisa Doherty APRN.SITE ADMINISTRATOR [address] [place], [place] [address] [facility] 05/16/24 10/25/24 Cassandra Arshad PA-C [address] [place] [address] Pick Up Man Family [facility] 05/16/24 Blender/Braze Applicator Relationship Specialty Start Date End Date Chencho Urbina MD [address] [place] [address] PCP - General Family Medicine 09/14/24 Chencho Urbina MD [address] [place] [address] Referring Family Medicine 10/31/22 Elisa Doherty APRN.SITE ADMINISTRATOR [address] [place] [address] [facility] 11/09/24 Cassandra Arshad PA-C [address] [place] [address] [facility] 11/09/24 Team Status: Active Member Role/Relationship Status Dates Dr. Chencho Urbina MD Family Provider Active Dr. Chencho Urbina MD Primary Care Provider Active Team Status: Inactive Member Role/Relationship Status Dates Dr. Chencho Urbina MD Primary Care Provider Active Start: September 28, 2024 End: September 28, 2024 Chencho MILLER MD Attending Provider Active Start: September 28, 2024 End: September 28, 2024 Chencho MILLER MD Referring Provider Active Start: September 28, 2024 End: September 28, 2024 Team Status: Inactive Member Role/Relationship Status Dates Dr. Chencho Urbina MD Primary Care Provider Active Start: October 21, 2024 End: October 21, 2024 Chencho MILLER MD Attending Provider Active Start: October 21, 2024 End: October 21, 2024 INFORMATION SOURCE (unrecogn ized section and content) DATE CREATED AUTHOR 03/21/2023 [facility] DATE CREATED AUTHOR AUTHOR'S ORGANIZ ATION 12/27/2023 [facility] DATE CREATED AUTHOR AUTHOR'S ORGANIZ ATION 03/18/2024 [facility] DATE CREATED AUTHOR AUTHOR'S ORGANIZ ATION 11/03/2024 [facility] DATE CREATED AUTHOR AUTHOR'S ORGANIZ ATION 12/06/2024 [facility] Goals (unrecognized section and content) Goals may be documented in a n alternate section FOR RECORDS PERTAINING TO PATIENTS WHO ARE OR HAVE BEEN ENROLLED IN A CHEMICAL DEPENDENCY/SUBSTANCEABUSE PROGRAM, SOME INFORMATION MAY BE OMITTED. This clinical summary was aggregated from multiple sources. Caution should be exercised in using it in the provision of clinical care. This summary normalizes information from multiple sources, and as a consequence, information in this document may materially change the coding, format and clinical context of patient data. In addition, data may be omitted in some cases. CLINICAL DECISIONS SHOULD BE BASED ON THE PRIMARY CLINICAL RECORDS. [employer] provides no warranty or guarantee of the accuracy or completeness of information in this document.
--- OUTSIDE RECORDS SUMMARY | 2024-12-21 03:40 | XMS RPT_ITS | CCD ---
Author Organization [facility] Care Team Providers Care Drip Pumper Name Role Phone Chencho Urbina MD Primary Care Provider [phone] Chencho Urbina MD Primary Care Provider Chencho [...] Attending Unavailabl ceci Quintero RN, Kaity Unavailable [phone] MARGE HAYES Attending Unavailable MARGE HAYES Admitting [...] MCKEON Attending Unavailable Leon RN, Kaity Unavailable [phone] Myra LARES.Elisa LEMUS Unavailable Cassandra Arshad PA-C Unavailable [phone] Chencho Urbina MD Primary Care Provider CIARA, CHENCHO A Primary Care Unavailable JEAN [...] Chencho Urbina MD Primary Care Provider Myra TEAM LEADER/RESEARCH PSYCHOLOGIST.Elisa LEMUS Unavailable Myra TEAM LEADER/RESEARCH PSYCHOLOGIST.Elisa LEMUS Unavailable Cassandra Arshad PA-C Unavailable Dr. [...] sources) Penicillins Drug Allergy 9 Swelling, Myalgia [facility] rofecoxib (2 sources) rofecoxib Drug Allergy 5 Unknown [facility] Work Phone: Serotonin Reuptake Inhibitors (SSRIs) (2 sources) Sertraline Drug Allergy 3 GI Upset [facility] (20 sources) rofecoxib; Translations: [ROFECOXIB] Drug Allergy 5 Unknown [facility] Work Phone: (20 sources) penecillin [Other] Propensity to adverse reactions 5 Unknown [facility] Work Phone: (20 sources) Sertraline; Translations: [SERTRALINE] Drug Allergy 3 GI Upset [facility] Work Phone: (20 sources) Penicillins; Translations: [PENICILLINS] Drug Allergy 9 Swelling, Myalgia [facility] (1 source) OTHER; Translations: [OTHER] Propensity to adverse reactions (disorder) 5 [facility] Other [facility] (20 sources) Lisinopril; Translations: [LISINOPRIL] Drug Allergy 5 Cough [facility] (10 sources) Penicillins Drug Allergy 9 Swelling, Myalgia [facility] (1 source) Penicillins Allergy to substance 4 swelling joints [facility] (1 source) Penicillins Drug allergy (disorder) 4 [facility] (1 source) rofecoxib Drug Allergy 4 [facility] Rep[facility] Medications Current Medications Medication [...] {tbl} PO DAILY February 13, 2024 12:00am [employer] Start: 05-01-2017 End: 06-30-2021 take 1 tablet by mouth once daily Aspirin 81 MG tablet Discontinued 81 mg PO DAILY@0800 0 May 01, 2017 1:00am June 30, 2021 9:03am calcium carbonate 1250 mg / cholecalciferol 200 unt oral tablet (20 sources) Vitamin D Start: 05-14-2023 take 1 tablet by mouth twice daily at mealtime rvfnymy-lugbqsxwk-pusqsyc D3 500 mg-5 mcg (200 unit) per tablet Indications: Primary hyperparathyroidism (HCC) Take 1 tablet by mouth two times a day with meals. 05/14/2023 Active Start: 03-26-2023 End: 05-14-2023 take 1 tablet by mouth three times daily wdpssie-xujtwifml-oyoagvj D3 500 mg-5 mc g (200 unit) [...] by kely th two times a day. Rscknsvj-Mky-Sund-Fa-V it K-Lut (Centrum Silver Women) 8 mg iron-400 mcg-300 mcg tablet (1 source) Start: 04-09-2019 Zyehmnrz-Xdh-Yyvp-Fa-Vit K-Lut (Centrum Silver Women) 8 mg iron-400 [...] on above: Take 1 capsule by mo [facility] three times daily. citalopram 10 mg oral [...] (20 sources) Patient encounter status; Translations: [[facility] ([facility] therapy] Onset: 12-09-2017 03-01-2021 Episodic Other aftercare (1 source) [facility] therapy; Translations: [Medication management] Onset: [...] closed pelvic fractures without disruption of pelvic cahto] Onset: 02-20-2024 02-20-2024 Episodic Other fractures (1 [...] 2024 PVR LEG ASIM VAS LAB Normal [facility] US CAROTID ARTERIES ASIM VAS LABon 10-28-2024 US CAROTID ARTERIES ASIM VAS LAB Normal [facility] US LEG VEIN DVT ASIM VAS LABo n 10-28-2024 US LEG VEIN DVT ASIM VAS LAB Normal [facility] CNPNon 10-23-2024 CNPN Normal [facility] Sodium levelOrdered By: Sai Urbina on 10-21-2024 Sodium [Moles/Vol] 137 mmol/L 133-145 [facility] CNPNon 10-16-2024 CNPN Normal [facility] CNOVon 10-07-2024 CNOV Normal [facility] CBC W Auto Differential pane l (Bld)on 10-06-2024 Basophils (Bld) [#/Vol] 0.07 10*3/uL Normal <0.11 [facility] Comment on above: Order Comment: Speci men Type: BLOOD SPECIMENOrdering Facility: [facility] Address: [address] [place] [address] Performed By: #### 5 7021-8 ####[facility] [id number] [place] [address] [place] Basophils/100 WBC (Bld) 0.8 % Normal [place] Comment on above: Order Comment: Speci men Type: BLOOD SPECIMENOrdering Facility: [facility] Address: [address] [place] [address] Performed By: #### 5 7021-8 ####[facility] [id number] [place] [address] [place] Differential cell count method Nom (Bld) Auto Normal [facility] Comment on above: Order Comment: Speci men Type: BLOOD SPECIMENOrdering Facility: [facility] Address: [address] [place] [address] Performed By: #### 5 7021-8 ####[facility] [id number] [place] [address] [place] Eosinophils (Bld) [#/Vol] 0.10 10*3/uL Normal <0.46 [facility] Comment on above: Order Comment: Speci men Type: BLOOD SPECIMENOrdering Facility: [facility] Address: [address] [place] [address] Performed By: #### 5 7021-8 ####[facility] [id number] [address] [place] Eosinophils/100 WBC (Bld) 1.1 % Normal [facility] Comment on above: Order Comment: Speci men Type: BLOOD SPECIMENOrdering Facility: [facility] Address: [address] [place] [address] Performed By: #### 5 7021-8 ####[facility] [id number] [place] [address] [place] Erythrocyte distribution width (RBC) [Ratio] 13.1 % Normal 11.5-15.0 [facility] Comment on above: Order Comment: Speci men Type: BLOOD SPECIMENOrdering Facility: [facility] Address: [address] [place] [address] Performed By: #### 5 7021-8 ####[facility] [id number] [place] [address] [place] Hematocrit (Bld) [Volume fraction] 36.4 % Normal 36.0-46.0 [facility] Comment on above: Order Comment: Speci men Type: BLOOD SPECIMENOrdering Facility: [facility] Address: [address] [place] [address] Performed By: #### 5 7021-8 ####[facility] [id number] [place] [address] [place] Hemoglobin (Bld) [Mass/Vol] 12.4 g/dL Normal 11.5-15.5 [facility] Comment on above: Order Comment: Speci men Type: BLOOD SPECIMENOrdering Facility: [facility] Address: [address] [place] [address] Performed By: #### 5 7021-8 ####[facility] [id number] [place] [address] [place] Immature granulocytes (Bld) [#/Vol] 0.03 10*3/uL Normal <0.10 [facility] Comment on above: Order Comment: Speci men Type: BLOOD SPECIMENOrdering Facility: [facility] Address: [address] [place] [address] Performed By: #### 5 7021-8 ####[facility] [id number] [place] [address] [place] Immature granulocytes/100 WBC (Bld) 0.3 % Normal [facility] Comment on above: Order Comment: Speci men Type: BLOOD SPECIMENOrdering Facility: [facility] Address: [address] [place] [address] Performed By: #### 5 7021-8 ####[facility] [id number] [place] [address] [place] Lymphocytes (Bld) [#/Vol] 2.41 10*3/uL Normal 1.00-4.00 [facility] Comment on above: Order Comment: Speci men Type: BLOOD SPECIMENOrdering Facility: [facility] Address: [address] [place] [address] Performed By: #### 5 7021-8 ####[facility] [id number] [place] [address] [place] Lymphocytes/100 WBC (Bld) 27.0 % Normal [facility] Comment on above: Order Comment: Speci men Type: BLOOD SPECIMENOrdering Facility: [facility] Address: [address] [place] [address] Performed By: #### 5 7021-8 ####[facility] [id number] [place] [address] [place] MCH (RBC) [Entitic mass] 31.2 pg Normal 26.0-34.0 [facility] Comment on above: Order Comment: Speci men Type: BLOOD SPECIMENOrdering Facility: [facility] Address: [address] [place] [address] Performed By: #### 5 7021-8 ####[facility] [id number] [place] [address] [place] MCHC (RBC) [Mass/Vol] 34.1 g/dL Normal 30.5-36.0 [facility] Comment on above: Order Comment: Speci men Type: BLOOD SPECIMENOrdering Facility: [facility] Address: [address] [place] [address] Performed By: #### 5 7021-8 ####[facility] [id number] [place] [address] [place] MCV (RBC) [Entitic vol] 91.7 fL Normal 80.0-100.[address] [facility] Comment on above: Order Comment: Speci men Type: BLOOD SPECIMENOrdering Facility: [facility] Address: [address] [place] [address] Performed By: #### 5 7021-8 ####[facility] [id number] [address] [address] [place] Monocytes (Bld) [#/Vol] 1.08 10*3/uL High <0.87 [facility] Comment on above: Order Comment: Speci men Type: BLOOD SPECIMENOrdering Facility: [facility] Address: [address] [place] [address] Performed By: #### 5 7021-8 ####[facility] [id number] [place] [address] [place] Monocytes/100 WBC (Bld) 12.1 % Normal [place] Comment on above: Order Comment: Speci men Type: BLOOD SPECIMENOrdering Facility: [facility] Address: [address] [place] [address] Performed By: #### 5 7021-8 ####[facility] [id number] [place] [address] [place] Neutrophils (Bld) [#/Vol] 5.24 10*3/uL Normal 1.45-7.50 [facility] Comment on above: Order Comment: Speci men Type: BLOOD SPECIMENOrdering Facility: [facility] Address: [address] [place] [address] Performed By: #### 5 7021-8 ####[facility] [id number] [place] [id number] [place] Neutrophils/100 WBC (Bld) 58.7 % Normal [facility] Comment on above: Order Comment: Speci men Type: BLOOD SPECIMENOrdering Facility: [facility] Address: [address] [place] [address] Performed By: #### 5 7021-8 ####[facility] [id number] [place] [address] [place] Nucleated RBC (Bld) [#/Vol] 10*3/uL Normal <0.01 [facility] Comment on above: Order Comment: Speci men Type: BLOOD SPECIMENOrdering Facility: [facility] Address: [address] [place] [address] Performed By: #### 5 7021-8 ####[facility] [id number] [place] [address] [place] Nucleated RBC/100 WBC (Bld) [Ratio] 0.0 /100 WBC Normal [facility] Comment on above: Order Comment: Speci men Type: BLOOD SPECIMENOrdering Facility: [facility] Address: [address] [place] [address] Performed By: #### 5 7021-8 ####[facility] [id number] [place] [address] [place] Platelet mean volume (Bld) [Entitic vol] 10.0 fL Normal 9.0-12.7 [facility] Comment on above: Order Comment: Speci men Type: BLOOD SPECIMENOrdering Facility: [facility] Address: [address] [place] [address] Performed By: #### 5 7021-8 ####[facility] [id number] [place] [address] [place] Platelets (Bld) [#/Vol] 324 10*3/uL Normal 150-400 [facility] Comment on above: Order Comment: Speci men Type: BLOOD SPECIMENOrdering Facility: [facility] Address: [address] [place] [address] Performed By: #### 5 7021-8 ####[facility] [id number] [address] [address] [place] RBC (Bld) [#/Vol] 3.97 10*6/uL Normal 3.90-5.20 [facility] Comment on above: Order Comment: Speci men Type: BLOOD SPECIMENOrdering Facility: [facility] Address: [address] [place] [address] Performed By: #### 5 7021-8 ####[facility] [id number] [address] [address] [place] WBC (Bld) [#/Vol] 8.93 10*3/uL Normal 3.70-11.00 [facility] Comment on above: Order Comment: Speci men Type: BLOOD SPECIMENOrdering Facility: [facility] Address: [address] [place] [address] Performed By: #### 5 7021-8 ####[facility] [id number] [address] [address] [place] Comprehensive metabolic 2000 panelon 10-06-2024 Albumin [Mass/Vol] 4.2 g/dL Normal 3.9-4.9 [facility] Comment on above: Order Comment: Speci men Type: BLOOD SPECIMENOrdering Facility: [facility] Address: [address] [place] [address] Performed By: #### 2 4323-8, 2132-02 ####[facility] [id number] [address] [address] [place] ALP [Catalytic activity/Vol] 68 U/L Normal 34-123 [facility] Comment on above: Order Comment: Speci men Type: BLOOD SPECIMENOrdering Facility: [facility] Address: [address] [place] [address] Performed By: #### 2 4323-8, 2132-02 ####[facility] [id number] [address] [address] [place] ALT [Catalytic activity/Vol] 10 U/L Normal 7-38 [facility] Comment on above: Order Comment: Speci men Type: BLOOD SPECIMENOrdering Facility: [facility] Address: [address] [place] [address] Performed By: #### 2 4323-01, 2132-02 ####[facility] [id number] [address] [address] [place] Anion gap [Moles/Vol] 13 mmol/L Normal 8-15 [facility] Comment on above: Order Comment: Speci men Type: BLOOD SPECIMENOrdering Facility: [facility] Address: [address] [place], [place] [address] Performed By: #### 2 4323-01, 2132-02 ####[facility] [id number] [address] [address] [place] AST [Catalytic activity/Vol] 20 U/L Normal 13-35 [facility] Comment on above: Order Comment: Speci men Type: BLOOD SPECIMENOrdering Facility: [facility] Address: [address] [place], [place] [address] Performed By: #### 2 4323-01, 2132-02 ####[facility] [id number] [address] [address] [place] Bilirubin [Mass/Vol] 0.3 mg/dL Normal 0.2-1.3 [facility] Comment on above: Order Comment: Speci men Type: BLOOD SPECIMENOrdering Facility: [facility] Address: [address] [place] [address] Performed By: #### 2 4323-01, 2132-02 ####[facility] [id number] [address] [address] [place] Calcium [Mass/Vol] 9.2 mg/dL Normal 8.5-10.2 [facility] Comment on above: Order Comment: Speci men Type: BLOOD SPECIMENOrdering Facility: [facility] Address: [address] [place] [address] Performed By: #### 2 4323-01, 2132-02 ####[facility] [id number] [address] [address] [place] Chloride [Moles/Vol] 93 mmol/L Low 98-107 [facility] Comment on above: Order Comment: Speci men Type: BLOOD SPECIMENOrdering Facility: [facility] Address: [address] [place] [address] Performed By: #### 2 4323-8, 2132-02 ####[facility] [id number] [place] [address] [place] CO2 [Moles/Vol] 23 mmol/L Normal 22-30 [facility] Comment on above: Order Comment: Speci men Type: BLOOD SPECIMENOrdering Facility: [facility] Address: [address] [place] [address] Performed By: #### 2 4323-8, 2132-02 ####[facility] [id number] [place] [address] [place] Creatinine [Mass/Vol] 1.17 mg/dL High 0.58-0.96 [facility] Comment on above: Order Comment: Speci men Type: BLOOD SPECIMENOrdering Facility: [facility] Address: [address] [place] [address] Performed By: #### 2 4323-8, 2132-02 ####[facility] [id number] [place] [address] [place] Creatinine and Glomerular filtration rate.predicted panel (S/P/Bld) 46 mL/min/1.73m??? Low >=60 [facility] Comment on above: Order Comment: Speci men Type: BLOOD SPECIMENOrdering Facility: [facility] Address: [address] [place] [address] Result Comment: Janeen mated Glomerular Filtration Rate [...] GFR. Performed By: #### 2 4323-01, 2132-02 ####[facility] [id number] [address] [address] [place] Glucose [Mass/Vol] 123 mg/dL High 74-99 [facility] Comment on above: Order Comment: Margarito batista Type: BLOOD SPECIMENOrdering Facility: [facility] Address: [address] [place] [address] Result Comment: The [place] Diabetes Association (ADA) provides guidance for cutoff [...] Standards of Medical Care in Diabetes 2016, [place] [employer] Association. Diabetes Care. 2016.39(Suppl 1). Performed By: #### 2 4323-01, 2132-02 ####[facility] [id number] [facility] [address] [address] [place] Potassium [Moles/Vol] 4.1 mmol/L Normal 3.7-5.1 [facility] Comment on above: Order Comment: Margarito batista Type: BLOOD SPECIMENOrdering Facility: [facility] Address: [address] [place] [address] Performed By: #### 2 4323-01, 2132-02 ####[facility] [id number] [facility] [address] [address] [place] Protein [Mass/Vol] 6.8 g/dL Normal 6.3-8.0 [facility] Comment on above: Order Comment: Speci men Type: BLOOD SPECIMENOrdering Facility: [facility] Address: [address] [place], [place] [address] Performed By: #### 2 4323-8, 2132-02 ####[facility] [id number] [address] [address] [place] Sodium [Moles/Vol] 129 mmol/L Low 136-144 [facility] Comment on above: Order Comment: Speci men Type: BLOOD SPECIMENOrdering Facility: [facility] Address: [address] [place] [address] Performed By: #### 2 43208-15, 2132-02 ####[facility] [id number] [place] [id number] [place] Urea nitrogen [Mass/Vol] 14 mg/dL Normal 7-21 [facility] Comment on above: Order Comment: Speci men Type: BLOOD SPECIMENOrdering Facility: [facility] Address: [address] [place] [address] Performed By: #### 2 4328, 2132-02 ####[facility] [id number] [place] [id number] [place] HbA1c (Bld)on 10-06-2024 Average glucose Estimated from glycated hemoglobin (Bld) [Mass/Vol] 111 mg/dL Normal [facility] Comment on above: Order Comment: Speci men Type: BLOOD SPECIMENOrdering Facility: [facility] Address: [address] [place], [place] [address] Result Comment: eAG: (Estimated average glucose) is a calculated value from HgbA1c and is inside account representative of the average blood glucose level in the last 2-3 month period. Performed By: #### 5 5454-3 ####[facility] [id number] [address] [address] [place] HbA1c (Bld) [Mass fraction] 5.5 % Normal 4.3-5.6 [facility] Comment on above: Order Comment: Speci men Type: BLOOD SPECIMENOrdering Facility: [facility] Address: [address] [place] [address] Result Comment: [place] Diabetes Association guidelines indicate that patients with HgbA1c in the range 5.7-6.4% are at increased risk for development of diabetes, and intervention by lifestyle modification may be beneficial. HgbA1c greater or equal to 6.5% is considered diagnostic of diabetes. Performed By: #### 5 5454-3 ####[facility] [id number] [address] [address] [place] Iron and Iron binding capaci ty panelon 10-06-2024 Iron [Mass/Vol] 87 ug/dL Normal 41-186 [facility] Comment on above: Order Comment: Speci men Type: BLOOD SPECIMENOrdering Facility: [facility] Address: [address] [place] [address] Performed By: #### L IPNF, 63369-2, 3015-3, 48751-4 ####[facility] [id number] [place] [id number] [place] Iron binding capacity [Mass/Vol] 325 ug/dL Normal 232-386 [facility] Comment on above: Order Comment: Speci men Type: BLOOD SPECIMENOrdering Facility: [facility] Address: [address] [place] [address] Performed By: #### L IPNF, 02738-7, 3015-3, 18268-2 ####[facility] [id number] [address] [address] [place] Iron/TIBC [Molar ratio] 26.8 % Normal 15.0-57.0 [place] Comment on above: Order Comment: Speci men Type: BLOOD SPECIMENOrdering Facility: [facility] Address: [address] [place] [address] Performed By: #### L IPNF, 90355-8, 6-3, 41357-4 ####[facility] [id number] [address] [address] [place] LIPID PANEL, NONFASTINGon Cholesterol [Mass/Vol] 191 mg/dL Normal <200 [facility] Comment on above: Order Comment: Speci men Type: BLOOD SPECIMENOrdering Facility: [facility] Address: [address] [place] [address] Result Comment: <200 mg/dL, Desirable 200-239 mg/dL, Borderline high>239 mg/dL, High Performed By: #### L IRMA, , 3015-3, 46418-5 ####[facility] [id number] [address] [place] HDL CHOLESTEROL, NF 56 mg/dL Normal >39 [facility] Comment on above: Order Comment: Speci men Type: BLOOD SPECIMENOrdering Facility: [facility] Address: [address] [place] [address] Result Comment: 40-5 9 mg/dL, Acceptable>59 mg/dL, High: Negative risk factor for coronary heart disease<40 mg/dL, Low: Positive risk factor for coronary heart disease Performed By: #### L IRMA, , 3015-3, 95486-4 ####[facility] [id number] [address] [address] [place] LDL CHOLESTEROL CALCULATED, NF 112 mg/dL High <100 [facility] Comment on above: Order Comment: Speci men Type: BLOOD SPECIMENOrdering Facility: [facility] Address: [address] [place] [address] Result Comment: <100 mg/dL, Optimal 100-129 mg/dL, Near optimal/above optimal 130-159 mg/dL, Borderline high 160-189 mg/dL, High>189 mg/dL, Very highSecondary prevention optimal LDL Cholesterol levels are recommended to be <70 mg/dLLDL cholesterol is calculated using the Morales-NIH equation. Performed By: #### L IRMA, , 3015-3, 44412-8 ####[facility] [id number] [place] [id number] [facility] [place] LDL/HDL RATIO, NF 2.00 mg/dL Normal <2.54 [facility] Comment on above: Order Comment: Speci men Type: BLOOD SPECIMENOrdering Facility: [facility] Address: [address] [place] [address] Result Comment: Refe rence:1. National Cholesterol Education Program ATP III Guideline At-A-Glance Quick Desk Reference: National Heart, Lung, and Blood [place]. National Institutes of Health. 2001: NIH Publication No. 01-3305.2. An International Atherosclerosis Society position paper: global recommendations for the management of dyslipidemia: executive summary, Atherosclerosis. 2014: 232(2):410-413. Performed By: #### L IRMA, 72828-6, 3015-3, 03784-8 ####[facility] [id number] [address] [place] NON HDL CHOL, NF 135 mg/dL High <130 [facility] Comment on above: Order Comment: Santii men Type: BLOOD SPECIMENOrdering Facility: [facility] Address: [address] [place] [address] Result Comment: <130 mg/dL, Optimal 130-159 mg/dL, Near optimal/above optimal 160-189 mg/dL, Borderline high 190-219 mg/dL, High>219 mg/dL, Very highSecondary prevention optimal non HDL Cholesterol levels are recommended to be <100 mg/dL Performed By: #### L IPNF, 74091-4, 6-3, 88909-9 ####[facility] [id number] [place] [id number] [facility] T CHOL/HDL RATIO NF 3.41 mg/dL Normal <5.10 [facility] Comment on above: Order Comment: Speci men Type: BLOOD SPECIMENOrdering Facility: [facility] Address: [address] [place] [address] Performed By: #### L IPNF, , 3, 03804-7 ####[facility] [id number] [place] [id number] [place] TRIGLYCERIDES, NF 131 mg/dL Normal <150 [facility] Comment on above: Order Comment: Speci men Type: BLOOD SPECIMENOrdering Facility: [facility] Address: [address] [place] [address] Result Comment: <150 mg/dL, Normal 150-199 mg/dL, Borderline high 200-499 mg/dL, High>499 mg/dL, Very high Performed By: #### L IPNF, , 3015-08, 71911-4 ####[facility] [id number] [place] [address] [place] VLDL CHOLESTEROL, NF 22 mg/dL Normal <30 [facility] Comment on above: Order Comment: Speci men Type: BLOOD SPECIMENOrdering Facility: [facility] Address: [address] [place] [address] Performed By: #### L IPNF, , 3, ####[facility] [id number] [place] [address] [place] Magnesium SerPl-mCncon 10-06 Magnesium [Mass/Vol] 1.6 mg/dL Low 1.7-2.3 [facility] Comment on above: Order Comment: Speci men Type: BLOOD SPECIMENOrdering Facility: [facility] Address: [address] [place] [address] Performed By: #### L IPNF, , 3, 97421-1 ####[facility] [id number] [place] [address] [place] TSH SerPl-aCncon 10-06-2024 TSH Qn 2.440 m[IU]/L Normal 0.270-4.200 [facility] Comment on above: Order Comment: Speci men Type: BLOOD SPECIMENOrdering Facility: [facility] Address: [address] [place] [address] Performed By: #### L IPNF, 90436-2, 3016-3, 52839-0 ####[facility] [id number] [place] [address] [place] Vit B12 SerPl-mCncon 025 Cobalamin (Vitamin B12) [Mass/Vol] 710 pg/mL Normal 232-1245 [facility] Comment on above: Order Comment: Speci men Type: BLOOD SPECIMENOrdering Facility: [facility] Address: [address] [place] [address] Performed By: #### 2 4323-8, 2132-9 ####[facility] [id number] [address] [place] CNPNon 09-30-2024 CNPN Normal [facility] Bilirubin Test strip Ql (U)O rdered By: Chencho Urbina on 09-28-2024 Bilirubin Ql (U) Negative Negative [facility] Ketones Test strip Ql (U)Ord ered By: Chencho Urbina on 09-28-2024 Ketones Ql (U) Negative Negative [facility] Microscopic analysis of urin e for red blood cells (RBC)Ordered By: Chencho Urbina on 09-28-2024 Microscopic analysis of urine for red blood cells (RBC) 0 SEEN /hpf 0-5 [facility] Mucus LM Ql (Urine sed)Order ed By: Chencho Urbina on 09-28-2024 Mucus Ql (Urine sed) RARE /hpf [facility] Nitrite Test strip Ql (U)Ord ered By: Chencho Urbina on 09-28-2024 Nitrite Ql (U) Negative Negative [facility] Protein Test strip Ql (U)Ord ered By: Chencho Urbina on 09-28-2024 Protein Ql (U) 15 mg/dl High Negative [facility] Squamous epithelial cells de tection in urine sediment by light microscopyOrdered By: Chencho Urbina on 09-28-2024 Epithelial cells.squamous LM Ql (Urine sed) 0-5 SEEN /hpf 5-10 [facility] Urine clarityOrdered By: Eliel Urbina on 09-28-2024 Clarity (U) Sl. Cloudy Clear [facility] Urine color determinationOrd ered By: Chencho Urbina on 09-28-2024 Color (U) Yellow Yellow [facility] Urine cultureOrdered By: Eliel Urbina on 09-28-2024 Bacteria identified Cx Nom (U) Raoultella planticola Abnormal [facility] Urine glucose detectionOrder ed By: Chencho Urbina on 09-28-2024 Glucose Ql (U) Normal mg/dl Normal [facility] Urine leukocyte esterase det ection by dipstickOrdered By: Chencho Urbina on 09-28-2024 Leukocyte esterase Test strip Ql (U) 100 /ul High Negative [facility] Urine pHOrdered By: Chencho Urbina on 09-28-2024 pH (U) 6.5 [pH] 5.0 - 8.0 [facility] Urine sediment bacteria coun t by microscopy (number/high power field)Ordered By: Chencho Urbina on 09-28-2024 Bacteria LM.HPF (Urine sed) [#/Area] 2 /[HPF] None Seen [facility] Urine specific gravity measu rementOrdered By: Chencho Urbina on 09-28-2024 Specific gravity (U) [Rel density] 1.010 1.002-1.030 [facility] Urine urobilinogen measureme ntOrdered By: Chencho Urbina on 09-28-2024 Urobilinogen Ql (U) Normal mg/dl Normal [facility] White blood cell countOrdere d By: Chencho Urbina on 09-28-2024 White blood cell count 10-25 SEEN /hpf 0-5 [facility] CNOVon 09-24-2024 CNOV Normal [facility] CNPNon 09-15-2024 CNPN Normal [facility] CNOVon 09-02-2024 CNOV Normal [facility] XR KNEE 4V AP/PA/LAT/MERCH B ILon 09-02-2024 XR KNEE 4V AP/PA/LAT/MERCH ASIM Normal [facility] Bacteria Ur Culton Bacteria identified Cx Nom (U) CULTURE, URINE: No growth (<1,000 CFU/ml) Normal [facility] Comment on above: Performed By: #### 6 30-4 ####[facility] [id number] [place] [address] [place] Comprehensive metabolic 2000 panelon 08-29-2024 Albumin [Mass/Vol] 4.1 g/dL Normal 3.9-4.9 [facility] Comment on above: Order Comment: Speci men Type: BLOOD SPECIMENOrdering Facility: [facility] Address: [address] [place] [address] Performed By: #### 3 016-3, 19917-8 ####[facility] [id number] [place] [address] [place] ALP [Catalytic activity/Vol] 71 U/L Normal 34-123 [facility] Comment on above: Order Comment: Speci men Type: BLOOD SPECIMENOrdering Facility: [facility] Address: [address] [place] [address] Performed By: #### 3 016-3, 17257-4 ####[facility] [id number] [address] [place] ALT [Catalytic activity/Vol] 11 U/L Normal 7-38 [facility] Comment on above: Order Comment: Speci men Type: BLOOD SPECIMENOrdering Facility: [facility] Address: [address] [place] [address] Performed By: #### 3 016-3, 16170-6 ####[facility] [id number] [place] [id number] [place] Anion gap [Moles/Vol] 11 mmol/L Normal 8-15 [facility] Comment on above: Order Comment: Speci men Type: BLOOD SPECIMENOrdering Facility: [facility] Address: [address] [place] [id number] Performed By: #### 3 016-3, ####[facility] [id number] [address] [address] [place] AST [Catalytic activity/Vol] 25 U/L Normal 13-35 [facility] Comment on above: Order Comment: Speci men Type: BLOOD SPECIMENOrdering Facility: [facility] Address: [address] [place] [address] Performed By: #### 3 -3, ####[facility] [id number] [place] [address] [place] Bilirubin [Mass/Vol] 0.4 mg/dL Normal 0.2-1.3 [facility] Comment on above: Order Comment: Speci men Type: BLOOD SPECIMENOrdering Facility: [facility] Address: [address] [place] [address] Performed By: #### 3 3, ####[facility] [id number] [place] [address] [place] Calcium [Mass/Vol] 9.0 mg/dL Normal 8.5-10.2 [facility] Comment on above: Order Comment: Speci men Type: BLOOD SPECIMENOrdering Facility: [facility] Address: [address] [place], [place] [address] Performed By: #### 3 -3, ####[facility] [id number] [place] [id number] [place] Chloride [Moles/Vol] 102 mmol/L Normal 98-107 [facility] Comment on above: Order Comment: Speci men Type: BLOOD SPECIMENOrdering Facility: [facility] Address: [address] [place], [place] [address] Performed By: #### 3 016-3, 14939-1 ####[facility] [id number] [place] [address] [place] CO2 [Moles/Vol] 23 mmol/L Normal 22-30 [facility] Comment on above: Order Comment: Speci men Type: BLOOD SPECIMENOrdering Facility: [facility] Address: [address] [place] [address] Performed By: #### 3 016-3, 46796-7 ####[facility] [id number] [place] [address] [place] Creatinine [Mass/Vol] 1.01 mg/dL High 0.58-0.96 [facility] Comment on above: Order Comment: Speci men Type: BLOOD SPECIMENOrdering Facility: [facility] Address: [address] [place] [address] Performed By: #### 3 016-3, 96686-7 ####[facility] [id number] [place] [address] [place] Creatinine and Glomerular filtration rate.predicted panel (S/P/Bld) 55 mL/min/1.73m??? Low >=60 [facility] Comment on above: Order Comment: Speci men Type: BLOOD SPECIMENOrdering Facility: [facility] Address: [address] [place] [address] Result Comment: Janeen mated Glomerular Filtration Rate [...] actual GFR. Performed By: #### 3 016-3, 98095-3 ####[facility] LABIA [id number] [place] [id number] [place] Glucose [Mass/Vol] 67 mg/dL Low 74-99 [facility] Comment on above: Order Comment: Speci men Type: BLOOD SPECIMENOrdering Facility: [facility] Address: [address] [place] [address] Result Comment: The [place] Diabetes Association (ADA) provides guidance for cutoff [...] Standards of Medical Care in Diabetes 2016, [place] [employer]. Diabetes Care. 2016.39(Suppl 1). Performed By: #### 3 016-3, 23720-1 ####[facility] [id number] [place] [address] [place] Potassium [Moles/Vol] 4.2 mmol/L Normal 3.7-5.1 [facility] Comment on above: Order Comment: Speci men Type: BLOOD SPECIMENOrdering Facility: [facility] Address: [address] [place] [address] Performed By: #### 3 -, 21785-4 ####[facility] LABIA [id number] [place] [id number] [place] Protein [Mass/Vol] 7.1 g/dL Normal 6.3-8.0 [facility] Comment on above: Order Comment: Speci men Type: BLOOD SPECIMENOrdering Facility: [facility] Address: [address] [place] [address] Performed By: #### 3 -3, ####[facility] [id number] [place] [id number] [place] Sodium [Moles/Vol] 136 mmol/L Normal 136-144 [facility] Comment on above: Order Comment: Speci men Type: BLOOD SPECIMENOrdering Facility: [facility] Address: [address] [place] [address] Performed By: #### 3 016-3, 65758-1 ####[facility] LABIA [id number] [place] [address] [place] Urea nitrogen [Mass/Vol] 11 mg/dL Normal 7-21 [facility] Comment on above: Order Comment: Speci men Type: BLOOD SPECIMENOrdering Facility: [facility] Address: [address] [place] [address] Performed By: #### 3 016-3, 10669-3 ####[facility] [id number] [place] [address] [place] TSH SerPl-aCncon 08-29-2024 TSH Qn 2.200 m[IU]/L Normal 0.270-4.200 [facility] Comment on above: Order Comment: Speci men Type: BLOOD SPECIMENOrdering Facility: [facility] Address: [address] [place] [address] Performed By: #### 3 016-3, 71157-5 ####[facility] [id number] [address] [place] Urinalysis complete panel (U )on 08-29-2024 Bacteria LM.HPF (Urine sed) [#/Area] Negative Normal Negative [facility] Comment on above: Order Comment: Speci men Type: URINE SPECIMENOrdering Facility: [facility] Address: [address] [place] [address] Performed By: #### 2 4356-8 ####[facility] [id number] [place] [address] [place] Bilirubin Ql (U) Negative Normal Negative [facility] Comment on above: Order Comment: Speci men Type: URINE SPECIMENOrdering Facility: [facility] Address: [address] [place] [address] Performed By: #### 2 4356-8 ####[facility] [id number] [address] [place] [address] [place] Clarity (Unsp spec) Clear Normal Clear [facility] Comment on above: Order Comment: Speci men Type: URINE SPECIMENOrdering Facility: [facility] Address: [address] [place] [address] Performed By: #### 2 4356-8 ####[facility] [id number] [facility] [address] [place] [address] [place] Color (U) Yellow Normal Yellow [facility] Comment on above: Order Comment: Speci men Type: URINE SPECIMENOrdering Facility: [facility] Address: [address] [place] [address] Performed By: #### 2 4356-8 ####[facility] [id number] [place] [id number] [place] Epithelial cells LM.HPF (Urine sed) [#/Area] None Seen Normal [facility] Comment on above: Order Comment: Speci men Type: URINE SPECIMENOrdering Facility: [facility] Address: [address] [place] [address] Performed By: #### 2 4356-8 ####[facility] [id number] [address] [address] [place] Glucose Test strip (U) [Mass/Vol] Negative Normal Negative [facility] Comment on above: Order Comment: Speci men Type: URINE SPECIMENOrdering Facility: [facility] Address: [address] [place], [place] [address] Performed By: #### 2 4356-8 ####[facility] [id number] [place] [id number] [place] Hemoglobin Ql (U) Negative Normal Negative [facility] Comment on above: Order Comment: Speci men Type: URINE SPECIMENOrdering Facility: [facility] Address: [address] [place] [address] Performed By: #### 2 4356-8 ####[facility] [id number] [address], [place] [address] [place] Hyaline casts (Urine sed) [#/Area] 0 /[LPF] Normal 0 /LPF [facility] Comment on above: Order Comment: Speci men Type: URINE SPECIMENOrdering Facility: [facility] Address: [address] [place] [address] Performed By: #### 2 4356-8 ####[facility] [id number] [address], [place] [address] [place] Ketones Ql (U) Negative Normal Negative [facility] Comment on above: Order Comment: Speci men Type: URINE SPECIMENOrdering Facility: [facility] Address: [address] [place] [address] Performed By: #### 2 4356-8 ####[facility] [id number] [address], [place] [address] [place] Leukocyte esterase Test strip Ql (U) Negative Normal Negative [facility] Comment on above: Order Comment: Speci men Type: URINE SPECIMENOrdering Facility: [facility] Address: [address] [place] [address] Performed By: #### 2 4356-8 ####[facility] [id number] [address], [facility] [place] Nitrite Ql (U) Negative Normal Negative [facility] Comment on above: Order Comment: Speci men Type: URINE SPECIMENOrdering Facility: [facility] Address: [address] [place] [address] Performed By: #### 2 4356-8 ####[facility] [id number] [address], [facility] [place] pH (U) 6.5 [pH] Normal <8.5 [facility] Comment on above: Order Comment: Speci men Type: URINE SPECIMENOrdering Facility: [facility] Address: [address] [place] [address] Performed By: #### 2 4356-8 ####[facility] [id number] [place] [id number] [place] Protein (U) [Mass/Vol] Negative Normal Negative [facility] Comment on above: Order Comment: Speci men Type: URINE SPECIMENOrdering Facility: [facility] Address: [address] [place] [address] Performed By: #### 2 4356-8 ####[facility] [id number] [place] [address] [place] RBC LM.HPF (Urine sed) [#/Area] 0-2 /HPF Normal 0-2 /HPF [facility] Comment on above: Order Comment: Speci men Type: URINE SPECIMENOrdering Facility: [facility] Address: [address] [place] [address] Performed By: #### 2 4356-8 ####[facility] [id number] [place] [address] [place] Specific gravity (U) [Rel density] 1.007 Normal 1.005-1.030 [facility] Comment on above: Order Comment: Speci men Type: URINE SPECIMENOrdering Facility: [facility] Address: [address] [place] [address] Performed By: #### 2 4356-8 ####[facility]IA [id number] [place] [id number] [place] Urobilinogen Ql (U) 0.2 EU/dL Normal 0.2-1.0 EU/dL [facility] Comment on above: Order Comment: Speci men Type: URINE SPECIMENOrdering Facility: [facility] Address: [address] [place] [address] Performed By: #### 2 4356-8 ####[facility] [id number] [place] [id number] [place] WBC LM.HPF (Urine sed) [#/Area] 0-5 /HPF Normal 0-5 /HPF [facility] Comment on above: Order Comment: Speci men Type: URINE SPECIMENOrdering Facility: [facility] Address: [address] [place] [address] Performed By: #### 2 4356-8 ####[facility] [id number] [place] [id number] [place] CNPNon 08-28-2024 CNPN Normal [facility] Bacteria Ur Culton Bacteria identified Cx Nom (U) Normal [facility] Comment on above: Performed By: #### 6 30-4 ####[facility] [id number] [place] [address] [place] CNOVon 08-17-2024 CNOV Normal [facility] UA DIP, URINE (POC)on 2024 BILIRUBIN UA (POCT) Small Abnormal Negative [facility] CLARITY UA (POCT) Slightly Cloudy Cl [facility] COLOR UA (POCT) Dark yellow [facility] GLUCOSE UA (POCT) Negative Negative mg/dL [facility] Hemoglobin Ql (U) Negative Negative [facility] Interpretation and review of laboratory results Abnormal [facility] KETONE UA (POCT) Trace Negative mg/dL [facility] LEUKOCYTES UA (POCT) Trace Abnormal Negative [facility] NITRITE UA (POCT) Negative Negative [facility] PH UA (POCT) 5.5 4.5 - 8.0 [facility] Protein Ql (U) 30 mg/dL Abnormal Negative [facility] SPECIFIC GRAVITY UA (POCT) 1.025 1.005 - 1.030 [facility] UROBILINOGEN UA (POCT) 0.2 Normal E.U./d L [facility] Location:[address], [place], [place], [address] [place] [address] POINT OF CARE [facility] Urinalysis complete panel (U )on 07-29-2024 Bacteria LM.HPF (Urine sed) [#/Area] Negative Normal Negative [facility] Comment on above: Order Comment: Speci men Type: URINE SPECIMENOrdering Facility: [facility] Address: [address] [place] [address] Performed By: #### 2 4356-8 ####[facility] [id number] [place] [address] [place] Bilirubin Ql (U) Negative Normal Negative [facility] Comment on above: Order Comment: Speci men Type: URINE SPECIMENOrdering Facility: [facility] Address: [address] [place] [address] Performed By: #### 2 4356-8 ####[facility] [id number] [place] [address] [place] Clarity (Unsp spec) Clear Normal Clear [facility] Comment on above: Order Comment: Speci men Type: URINE SPECIMENOrdering Facility: [facility] Address: [address] [place] [address] Performed By: #### 2 4356-8 ####[facility] [id number] [place] [address] [place] Color (U) Yellow Normal Yellow [facility] Comment on above: Order Comment: Speci men Type: URINE SPECIMENOrdering Facility: [facility] Address: [address] [place] [address] Performed By: #### 2 4356-8 ####[facility] [id number] [place] [address] [place] Epithelial cells LM.HPF (Urine sed) [#/Area] Few Normal [facility] Comment on above: Order Comment: Speci men Type: URINE SPECIMENOrdering Facility: [facility] Address: [address] [place] [address] Performed By: #### 2 4356-8 ####[facility] [id number] [place] [address] [place] Glucose Test strip (U) [Mass/Vol] Negative Normal Negative [facility] Comment on above: Order Comment: Speci men Type: URINE SPECIMENOrdering Facility: [facility] Address: [address] [place] [address] Performed By: #### 2 4356-8 ####[facility] [id number] [place] [address] [place] Hemoglobin Ql (U) Negative Normal Negative [facility] Comment on above: Order Comment: Speci men Type: URINE SPECIMENOrdering Facility: [facility] Address: [address] [place] [address] Performed By: #### 2 4356-8 ####[facility] [id number] [place] [address] [place] Hyaline casts (Urine sed) [#/Area] 1-3 /LPF Abnormal 0 /LPF [facility] Comment on above: Order Comment: Speci men Type: URINE SPECIMENOrdering Facility: [facility] Address: [address] [place] [address] Performed By: #### 2 4356-8 ####[facility] [id number] [place] [address] [place] Ketones Ql (U) Negative Normal Negative [facility] Comment on above: Order Comment: Speci men Type: URINE SPECIMENOrdering Facility: [facility] Address: [address] [place] [address] Performed By: #### 2 4356-8 ####[facility] [id number] [place] [address] [place] Leukocyte esterase Test strip Ql (U) Trace Abnormal Negative [facility] Comment on above: Order Comment: Speci men Type: URINE SPECIMENOrdering Facility: [facility] Address: [address] [place] [address] Performed By: #### 2 4356-8 ####[facility] [id number] [place] [address] [place] Nitrite Ql (U) Negative Normal Negative [facility] Comment on above: Order Comment: Speci men Type: URINE SPECIMENOrdering Facility: [facility] Address: [address] [place] [address] Performed By: #### 2 4356-8 ####[facility] [id number] [place] [address] [place] pH (U) 6.0 [pH] Normal <8.5 [facility] Comment on above: Order Comment: Speci men Type: URINE SPECIMENOrdering Facility: [facility] Address: [address] [place] [address] Performed By: #### 2 4356-8 ####[facility] [id number] [place] [address] [place] Protein (U) [Mass/Vol] Negative Normal Negative [facility] Comment on above: Order Comment: Speci men Type: URINE SPECIMENOrdering Facility: [facility] Address: [address] [place] [address] Performed By: #### 2 4356-8 ####[facility] [id number] [place] [address] [place] RBC LM.HPF (Urine sed) [#/Area] 0-2 /HPF Normal 0-2 /HPF [facility] Comment on above: Order Comment: Speci men Type: URINE SPECIMENOrdering Facility: [facility] Address: [address] [place] [address] Performed By: #### 2 4356-8 ####[facility] [id number] [place] [address] [place] Specific gravity (U) [Rel density] 1.014 Normal 1.005-1.030 [facility] Comment on above: Order Comment: Speci men Type: URINE SPECIMENOrdering Facility: [facility] Address: [address] [place] [address] Performed By: #### 2 4356-8 ####[facility] [id number] [place] [address] [place] Urobilinogen Ql (U) 0.2 EU/dL Normal 0.2-1.0 EU/dL [facility] Comment on above: Order Comment: Speci men Type: URINE SPECIMENOrdering Facility: [facility] Address: [address] [place] [address] Performed By: #### 2 4356-8 ####[facility] [id number] [place] [address] [place] WBC LM.HPF (Urine sed) [#/Area] 0-5 /HPF Normal 0-5 /HPF [facility] Comment on above: Order Comment: Speci men Type: URINE SPECIMENOrdering Facility: [facility] Address: [address] [place] [address] Performed By: #### 2 4356-8 ####[facility] [id number] [place] [address] [place] CNPNon 07-06-2024 CNPN Normal [facility] CNPNon 06-26-2024 CNPN Normal [facility] US KIDNEY/BLADDERon 06-24-19 US KIDNEY/BLADDER Normal [facility] CNPNon 06-18-2024 CNPN Normal [facility] Urinalysis complete panel (U )on 06-17-2024 Bacteria LM.HPF (Urine sed) [#/Area] Negative Normal Negative [facility] Comment on above: Order Comment: Speci men Type: URINE SPECIMENOrdering Facility: [facility] Address: [address] [place] [address] Performed By: #### 2 4356-8 ####[facility] [id number] [place] [address] [place] Bilirubin Ql (U) 1+ Abnormal Negative [facility] Comment on above: Order Comment: Speci men Type: URINE SPECIMENOrdering Facility: [facility] Address: [address] [place] [address] Result Comment: Sugg est correlation with clinical findings and serum bilirubin if clinically indicated. Performed By: #### 2 4356-8 ####[facility] [id number] [place] [address] [place] CALCIUM OXALATE CRYSTALS (UA) Moderate Abnormal None Seen [facility] Comment on above: Order Comment: Speci men Type: URINE SPECIMENOrdering Facility: [facility] Address: [address] [place] [address] Performed By: #### 2 4356-8 ####[facility] [id number] [place] [address] [place] Clarity (Unsp spec) Turbid Abnormal Clear [facility] Comment on above: Order Comment: Speci men Type: URINE SPECIMENOrdering Facility: [facility] Address: [address] [place] [address] Performed By: #### 2 4356-8 ####[facility] [id number] [place] [address] [place] Color (U) Dark Yellow Abnormal Yellow [facility] Comment on above: Order Comment: Speci men Type: URINE SPECIMENOrdering Facility: [facility] Address: [address] [place] [address] Performed By: #### 2 4356-8 ####[facility] [id number] [place] [address] [place] Epithelial cells LM.HPF (Urine sed) [#/Area] Moderate Normal [facility] Comment on above: Order Comment: Speci men Type: URINE SPECIMENOrdering Facility: [facility] Address: [address] [place] [address] Performed By: #### 2 4356-8 ####[facility] [id number] [place] [address] [place] Glucose Test strip (U) [Mass/Vol] Negative Normal Negative [facility] Comment on above: Order Comment: Speci men Type: URINE SPECIMENOrdering Facility: [facility] Address: [address] [place] [address] Performed By: #### 2 4356-8 ####[facility] [id number] [place] [address] [place] Hemoglobin Ql (U) Negative Normal Negative [facility] Comment on above: Order Comment: Speci men Type: URINE SPECIMENOrdering Facility: [facility] Address: [address] [place] [address] Performed By: #### 2 4356-8 ####[facility] [id number] [place] [address] [place] Hyaline casts (Urine sed) [#/Area] 4-10 /LPF Abnormal 0 /LPF [facility] Comment on above: Order Comment: Speci men Type: URINE SPECIMENOrdering Facility: [facility] Address: [address] [place] [address] Performed By: #### 2 4356-8 ####[facility] [id number] [place] [address] [place] Ketones Ql (U) Trace Abnormal Negative [facility] Comment on above: Order Comment: Speci men Type: URINE SPECIMENOrdering Facility: [facility] Address: [address] [place] [address] Performed By: #### 2 4356-8 ####[facility] [id number] [place] [address] [place] Leukocyte esterase Test strip Ql (U) Trace Abnormal Negative [facility] Comment on above: Order Comment: Speci men Type: URINE SPECIMENOrdering Facility: [facility] Address: [address] [place] [address] Performed By: #### 2 4356-8 ####[facility] [id number] [place] [address] [place] Nitrite Ql (U) Negative Normal Negative [facility] Comment on above: Order Comment: Speci men Type: URINE SPECIMENOrdering Facility: [facility] Address: [address] [place] [address] Performed By: #### 2 4356-8 ####[facility] [id number] [place] [address] [place] pH (U) 5.5 [pH] Normal <8.5 [facility] Comment on above: Order Comment: Speci men Type: URINE SPECIMENOrdering Facility: [facility] Address: [address] [place] [address] Performed By: #### 2 4356-8 ####[facility] [id number] [place] [address] [place] Protein (U) [Mass/Vol] 1+ Abnormal Negative Cl [facility] Comment on above: Order Comment: Speci men Type: URINE SPECIMENOrdering Facility: [facility] Address: [address] [place] [address] Performed By: #### 2 4356-8 ####[facility] [id number] [place] [address] [place] RBC LM.HPF (Urine sed) [#/Area] 3-5 /HPF Abnormal 0-2 /HPF [facility] Comment on above: Order Comment: Speci men Type: URINE SPECIMENOrdering Facility: [facility] Address: [address] [place] [address] Performed By: #### 2 4356-8 ####[facility] [id number] [place] [address] [place] Specific gravity (U) [Rel density] 1.030 Normal 1.005-1.030 [facility] Comment on above: Order Comment: Speci men Type: URINE SPECIMENOrdering Facility: [facility] Address: [address] [place] [address] Performed By: #### 2 4356-8 ####[facility] [id number] [place] [address] [place] Urobilinogen Ql (U) 0.2 EU/dL Normal 0.2-1.0 EU/dL Cl [facility] Comment on above: Order Comment: Speci men Type: URINE SPECIMENOrdering Facility: [facility] Address: [address] [place] [address] Performed By: #### 2 4356-8 ####[facility] [id number] [place] [address] [place] WBC LM.HPF (Urine sed) [#/Area] 0-5 /HPF Normal 0-5 /HPF [facility] Comment on above: Order Comment: Speci men Type: URINE SPECIMENOrdering Facility: [facility] Address: [address] [place] [address] Performed By: #### 2 4356-8 ####[facility] [id number] [place] [address] [place] CNOVon 06-15-2024 CNOV Normal [facility] CNOVon 06-08-2024 CNOV Normal [facility] UA DIP, URINE (POC)on 2023 BILIRUBIN UA (POCT) Negative Negative [facility] CLARITY UA (POCT) Clear [facility] COLOR UA (POCT) Yellow [facility] GLUCOSE UA (POCT) Negative Negative mg/dL [facility] Hemoglobin Ql (U) Negative Negative [facility] Interpretation and review of laboratory results Abnormal [facility] KETONE UA (POCT) Trace Negative mg/dL [facility] LEUKOCYTES UA (POCT) Negative Negative [facility] NITRITE UA (POCT) Negative Negative [facility] PH UA (POCT) 5.5 4.5 - 8.0 [facility] Protein Ql (U) 30 mg/dL Abnormal Negative [facility] SPECIFIC GRAVITY UA (POCT) 1.025 1.005 - 1.030 [facility] UROBILINOGEN UA (POCT) 0.2 Normal E.U./d L [facility] Location:[facility], [address] [place] [address], [place], [place], [id number] [place] [address] POINT OF CARE [facility] CNPNon 05-12-2024 CNPN Normal [facility] CNPNon 05-11-2024 CNPN Normal [facility] CNOVon 05-04-2024 CNOV Normal [facility] CNPNon 05-01-2024 CNPN Normal [facility] Bacteria Ur Culton Bacteria identified Cx Nom (U) Abnormal [facility] Comment on above: Performed By: #### 6 30-4 ####[facility] [id number] [place] [address] [place] CNOVon 04-29-2024 CNOV Normal [facility] CNPNon 04-29-2024 CNPN Normal [facility] UA DIP, URINE (POC)on 2023 BILIRUBIN UA (POCT) Negative Negative [facility] CLARITY UA (POCT) Cloudy [facility] COLOR UA (POCT) Dark yellow [facility] GLUCOSE UA (POCT) Negative Negative mg/dL [facility] Hemoglobin Ql (U) Moderate Abnormal Negative [facility] Interpretation and review of laboratory results Abnormal [facility] KETONE UA (POCT) Negative Negative mg/dL [facility] LEUKOCYTES UA (POCT) Moderate Abnormal Negative [facility] NITRITE UA (POCT) Negative Negative [facility] PH UA (POCT) 6.0 4.5 - 8.0 [facility] Protein Ql (U) 100 mg/dL Abnormal Negative [facility] SPECIFIC GRAVITY UA (POCT) 1.015 1.005 - 1.030 [facility] UROBILINOGEN UA (POCT) 0.2 Normal E.U./d L [facility] Location:[facility], [address], [place], [address] [facility] POINT OF CARE [facility] CNPNon 04-03-2024 CNPN Normal [facility] CNPNon 03-26-2024 CNPN Normal [facility] Basic metabolic 2000 panelon 03-25-2024 Anion gap [Moles/Vol] 13 mmol/L Normal 8-15 [facility] Comment on above: Order Comment: Speci men Type: BLOOD SPECIMENOrdering Facility: [facility] Address: [address] [place] [address] Performed By: #### 2 4321-2 ####[facility] [id number] [place] [address] [place] Calcium [Mass/Vol] 8.9 mg/dL Normal 8.5-10.2 [facility] Comment on above: Order Comment: Speci men Type: BLOOD SPECIMENOrdering Facility: [facility] Address: [address] [place] [address] Performed By: #### 2 4321-2 ####[facility] [id number] [place] [address] [place] Chloride [Moles/Vol] 108 mmol/L High 98-107 [facility] Comment on above: Order Comment: Speci men Type: BLOOD SPECIMENOrdering Facility: [facility] Address: [address] [place] [address] Performed By: #### 2 4321-2 ####[facility] [id number] [facility] [address] [address] [place] CO2 [Moles/Vol] 17 mmol/L Low 22-30 [facility] Comment on above: Order Comment: Speci men Type: BLOOD SPECIMENOrdering Facility: [facility] Address: [address] [place], [place] [address] Performed By: #### 2 4321-2 ####[facility] [id number] [place] [address] [place] Creatinine [Mass/Vol] 1.17 mg/dL High 0.58-0.96 [facility] Comment on above: Order Comment: Margarito batista Type: BLOOD SPECIMENOrdering Facility: [facility] Address: [address] [place] [address] Performed By: #### 2 4321-2 ####[facility]IA [id number] [address] [place] Creatinine and Glomerular filtration rate.predicted panel (S/P/Bld) 46 mL/min/1.73m??? Low >=60 [facility] Comment on above: Order Comment: Margarito batista Type: BLOOD SPECIMENOrdering Facility: [facility] Address: [address] [place] [address] Result Comment: Janeen mated Glomerular Filtration Rate [...] actual GFR. Performed By: #### 2 4321-2 ####[facility] LABIA [id number] [place] [address] [place] Glucose [Mass/Vol] 129 mg/dL High 74-99 [facility] Comment on above: Order Comment: Margarito batista Type: BLOOD SPECIMENOrdering Facility: [facility] Address: [address] [place] [address] Result Comment: The [place] [employer] (ADA) provides guidance for cutoff [...] Standards of Medical Care in Diabetes 2016, [place] [employer]. Diabetes Care. 2016.39(Suppl 1). Performed By: #### 2 4321-2 ####[facility] [id number] [place] [address] [place] Potassium [Moles/Vol] 3.9 mmol/L Normal 3.7-5.1 [facility] Comment on above: Order Comment: Speci men Type: BLOOD SPECIMENOrdering Facility: [facility] Address: [address] [place] [address] Performed By: #### 2 4321-2 ####[facility] [id number] [place] [address] [place] Sodium [Moles/Vol] 138 mmol/L Normal 136-144 [facility] Comment on above: Order Comment: Speci men Type: BLOOD SPECIMENOrdering Facility: [facility] Address: [address] [place] [address] Performed By: #### 2 4321-2 ####[facility]IA [id number] [place] [address] [place] Urea nitrogen [Mass/Vol] 15 mg/dL Normal 7-21 [facility] Comment on above: Order Comment: Speci men Type: BLOOD SPECIMENOrdering Facility: [facility] Address: [address] [place] [address] Performed By: #### 2 4321-2 ####[facility]IA [id number] [place] [address] [place] CBC W Auto Differential pane l (Bld)on 03-25-2024 Basophils (Bld) [#/Vol] 0.07 10*3/uL Normal <0.11 [facility] Comment on above: Order Comment: Speci men Type: BLOOD SPECIMENOrdering Facility: [facility] Address: [address] [place] [address] Performed By: #### 5 7021-8 ####[facility] [id number] [place] [address] [place] Basophils/100 WBC (Bld) 0.7 % Normal C [facility] Comment on above: Order Comment: Speci men Type: BLOOD SPECIMENOrdering Facility: [facility] Address: [address] [place] [address] Performed By: #### 5 7021-8 ####[facility] [id number] [place] [address] [place] Differential cell count method Nom (Bld) Auto Normal [facility] Comment on above: Order Comment: Speci men Type: BLOOD SPECIMENOrdering Facility: [facility] Address: [address] [place] [address] Performed By: #### 5 7021-8 ####[facility] [id number] [place] [address] [place] Eosinophils (Bld) [#/Vol] 0.70 10*3/uL High <0.46 [facility] Comment on above: Order Comment: Speci men Type: BLOOD SPECIMENOrdering Facility: [facility] Address: [address] [place] [address] Performed By: #### 5 7021-8 ####[facility] [id number] [place] [address] [place] Eosinophils/100 WBC (Bld) 6.6 % Normal [facility] Comment on above: Order Comment: Speci men Type: BLOOD SPECIMENOrdering Facility: [facility] Address: [address] [place] [address] Performed By: #### 5 7021-8 ####[facility] [id number] [place] [address] [place] Erythrocyte distribution width (RBC) [Ratio] 15.0 % Normal 11.5-15.0 [facility] Comment on above: Order Comment: Speci men Type: BLOOD SPECIMENOrdering Facility: [facility] Address: [address] [place] [address] Performed By: #### 5 7021-8 ####[facility] [id number] [place] [address] [place] Hematocrit (Bld) [Volume fraction] 35.8 % Low 36.0-46.0 [facility] Comment on above: Order Comment: Speci men Type: BLOOD SPECIMENOrdering Facility: [facility] Address: [address] [place] [address] Performed By: #### 5 7021-8 ####[facility] [id number] [place] [address] [place] Hemoglobin (Bld) [Mass/Vol] 12.2 g/dL Normal 11.5-15.5 [facility] Comment on above: Order Comment: Speci men Type: BLOOD SPECIMENOrdering Facility: [facility] Address: [address] [place] [address] Performed By: #### 5 7021-8 ####[facility]IA [id number] [place] [address] [place] Immature granulocytes (Bld) [#/Vol] 0.09 10*3/uL Normal <0.10 [facility] Comment on above: Order Comment: Speci men Type: BLOOD SPECIMENOrdering Facility: [facility] Address: [address] [place] [address] Performed By: #### 5 7021-8 ####[facility] [id number] [place] [address] [place] Immature granulocytes/100 WBC (Bld) 0.8 % Normal [facility] Comment on above: Order Comment: Speci men Type: BLOOD SPECIMENOrdering Facility: [facility] Address: [address] [place], [place] [address] Performed By: #### 5 7021-8 ####[facility] [id number] [place] [address] [place] Lymphocytes (Bld) [#/Vol] 1.41 10*3/uL Normal 1.00-4.00 [facility] Comment on above: Order Comment: Speci men Type: BLOOD SPECIMENOrdering Facility: [facility] Address: [address] [place] [address] Performed By: #### 5 7021-8 ####[facility] [id number] [place] [address] [place] Lymphocytes/100 WBC (Bld) 13.2 % Normal [facility] Comment on above: Order Comment: Speci men Type: BLOOD SPECIMENOrdering Facility: [facility] Address: [address] [place] [address] Performed By: #### 5 7021-8 ####[facility] [id number] [place] [address] [place] MCH (RBC) [Entitic mass] 33.6 pg Normal 26.0-34.0 [facility] Comment on above: Order Comment: Speci men Type: BLOOD SPECIMENOrdering Facility: [facility] Address: [address] [place] [address] Performed By: #### 5 7021-8 ####[facility] [id number] [place] [address] [place] MCHC (RBC) [Mass/Vol] 34.1 g/dL Normal 30.5-36.0 [facility] Comment on above: Order Comment: Speci men Type: BLOOD SPECIMENOrdering Facility: [facility] Address: [address] [place] [address] Performed By: #### 5 7021-8 ####[facility] [id number] [address] [address] [place] MCV (RBC) [Entitic vol] 98.6 fL Normal 80.0-100.[address] [facility] Comment on above: Order Comment: Speci men Type: BLOOD SPECIMENOrdering Facility: [facility] Address: [address] [place] [address] Performed By: #### 5 7021-8 ####[facility] [id number] [place] [address] [place] Monocytes (Bld) [#/Vol] 1.07 10*3/uL High <0.87 [facility] Comment on above: Order Comment: Speci men Type: BLOOD SPECIMENOrdering Facility: [facility] Address: [address] [place] [address] Performed By: #### 5 7021-8 ####[facility] [id number] [place] [address] [place] Monocytes/100 WBC (Bld) 10.0 % Normal C [facility] Comment on above: Order Comment: Speci men Type: BLOOD SPECIMENOrdering Facility: [facility] Address: [address] [place] [address] Performed By: #### 5 7021-8 ####[facility] [id number] [place] [address] [place] Neutrophils (Bld) [#/Vol] 7.34 10*3/uL Normal 1.45-7.50 [facility] Comment on above: Order Comment: Speci men Type: BLOOD SPECIMENOrdering Facility: [facility] Address: [address] [place] [address] Performed By: #### 5 7021-8 ####[facility] [id number] [place] [address] [place] Neutrophils/100 WBC (Bld) 68.7 % Normal [facility] Comment on above: Order Comment: Speci men Type: BLOOD SPECIMENOrdering Facility: [facility] Address: [address] [place] [address] Performed By: #### 5 7021-8 ####[facility] [id number] [place] [address] [place] Nucleated RBC (Bld) [#/Vol] 10*3/uL Normal <0.01 [facility] Comment on above: Order Comment: Speci men Type: BLOOD SPECIMENOrdering Facility: [facility] Address: [address] [place] [address] Performed By: #### 5 7021-8 ####[facility] LABIA [id number] [place] [address] [place] Nucleated RBC/100 WBC (Bld) [Ratio] 0.0 /100 WBC Normal [facility] Comment on above: Order Comment: Speci men Type: BLOOD SPECIMENOrdering Facility: [facility] Address: [address] [place] [address] Performed By: #### 5 7021-8 ####[facility] [id number] [place] [address] [place] Platelet mean volume (Bld) [Entitic vol] 9.9 fL Normal 9.0-12.7 [facility] Comment on above: Order Comment: Speci men Type: BLOOD SPECIMENOrdering Facility: [facility] Address: [address] [place] [address] Performed By: #### 5 7021-8 ####[facility] LABCLIA [id number] [place] [address] [place] Platelets (Bld) [#/Vol] 368 10*3/uL Normal 150-400 [facility] Comment on above: Order Comment: Speci men Type: BLOOD SPECIMENOrdering Facility: [facility] Address: [address] [place] [address] Performed By: #### 5 7021-8 ####[facility] LABCLIA [id number] [place] [address] [place] RBC (Bld) [#/Vol] 3.63 10*6/uL Low 3.90-5.20 [facility] Comment on above: Order Comment: Speci men Type: BLOOD SPECIMENOrdering Facility: [facility] Address: [address] [place] [address] Performed By: #### 5 7021-8 ####[facility] LABCLIA [id number] [place] [address] [place] WBC (Bld) [#/Vol] 10.68 10*3/uL Normal 3.70-11.00 [facility] Comment on above: Order Comment: Speci men Type: BLOOD SPECIMENOrdering Facility: [facility] Address: [address] [place] [address] Performed By: #### 5 7021-8 ####[facility] [id number] [place] [address] [place] CNOVon 03-25-2024 CNOV Normal [facility] CNPNon 03-25-2024 CNPN Normal [facility] TSH SerPl-aCncon 03-25-2024 TSH Qn 1.580 m[IU]/L Normal 0.270-4.200 [facility] Comment on above: Order Comment: Speci men Type: BLOOD SPECIMENOrdering Facility: [facility] Address: [address] [place] [address] Performed By: #### 3 016-3 ####[facility] LABCLIA [id number] [place] [address] [place] CNPNon 03-17-2024 CNPN Normal [facility] Basic metabolic 2000 panelon 03-16-2024 Anion gap [Moles/Vol] 13 mmol/L Normal 8-15 [facility] Comment on above: Order Comment: Speci men Type: BLOOD SPECIMENOrdering Facility: [facility] Address: [address] [place] [address] Performed By: #### 2 4321-2 ####[facility] LILLY MILLTOWNCLIA [id number] [place] [address] [place] Calcium [Mass/Vol] 9.1 mg/dL Normal 8.5-10.2 [facility] Comment on above: Order Comment: Speci men Type: BLOOD SPECIMENOrdering Facility: [facility] Address: [address] [place] [address] Performed By: #### 2 4321-2 ####[facility] MILLTOWNCLIA [id number] [place] [address] [place] Chloride [Moles/Vol] 107 mmol/L Normal 98-107 [facility] Comment on above: Order Comment: Speci men Type: BLOOD SPECIMENOrdering Facility: [facility] Address: [address] [place] [address] Performed By: #### 2 4321-2 ####[facility] MILLWNCLIA [id number] [place] [address] [place] CO2 [Moles/Vol] 18 mmol/L Low 22-30 [facility] Comment on above: Order Comment: Speci men Type: BLOOD SPECIMENOrdering Facility: [facility] Address: [address] [place] [address] Performed By: #### 2 4321-2 ####[facility] MILLWNCLIA [id number] [place] [address] [place] Creatinine [Mass/Vol] 1.06 mg/dL High 0.58-0.96 [facility] Comment on above: Order Comment: Speci men Type: BLOOD SPECIMENOrdering Facility: [facility] Address: [address] [place] [address] Performed By: #### 2 4321-2 ####[facility]ITALWNCLIA [id number] [place] [address] [place] Creatinine and Glomerular filtration rate.predicted panel (S/P/Bld) 52 mL/min/1.73m??? Low >=60 [facility] Comment on above: Order Comment: Margarito batista Type: BLOOD SPECIMENOrdering Facility: [facility] Address: [address] [place] [address] Result Comment: Janeen mated Glomerular Filtration Rate [...] actual GFR. Performed By: #### 2 4321-2 ####[facility] [id number] [place] [address] [place] Glucose [Mass/Vol] 118 mg/dL High 74-99 [facility] Comment on above: Order Comment: Margarito batista Type: BLOOD SPECIMENOrdering Facility: [facility] Address: [address] [place] [address] Result Comment: The [place] Diabetes Association (ADA) provides guidance for cutoff [...] Standards of Medical Care in Diabetes 2016, [place] [employer]. Diabetes Care. 2016.39(Suppl 1). Performed By: #### 2 4321-2 ####[facility] [id number] [place] [address] [place] Potassium [Moles/Vol] 3.4 mmol/L Low 3.7-5.1 [facility] Comment on above: Order Comment: Speci men Type: BLOOD SPECIMENOrdering Facility: [facility] Address: [address] [place] [address] Performed By: #### 2 4321-2 ####[facility] [id number] [place] [address] [place] Sodium [Moles/Vol] 138 mmol/L Normal 136-144 [facility] Comment on above: Order Comment: Speci men Type: BLOOD SPECIMENOrdering Facility: [facility] Address: [address] [place] [address] Performed By: #### 2 4321-2 ####[facility] [id number] [place] [address] [place] Urea nitrogen [Mass/Vol] 15 mg/dL Normal 7-21 [facility] Comment on above: Order Comment: Speci men Type: BLOOD SPECIMENOrdering Facility: [facility] Address: [address] [place] [address] Performed By: #### 2 4321-2 ####[facility] [id number] [place] [address] [place] CNOVon 03-16-2024 CNOV Normal [facility] XR PELVIS 2V INLET/OUTLETon 03-16-2024 XR PELVIS 2V INLET/OUTLET Normal [facility] CNPNon 03-11-2024 CNPN Normal [facility] CNPTOUTREACHon 03-11-2024 CNPTOUTREACH Normal [facility] CNPTOUTREACHon 03-04-2024 CNPTOUTREACH Normal [facility] CNPNon 03-03-2024 CNPN Normal [facility] Basic metabolic 2000 panelon 03-02-2024 Anion gap [Moles/Vol] 9 mmol/L Normal 8-15 [facility] Comment on above: Order Comment: Speci men Type: BLOOD SPECIMENOrdering Facility: [facility] Address: [address] [place] [address] Performed By: #### 2 4321-2 ####[facility] MILLTOWNCLIA [id number] [place] [address] [place] Calcium [Mass/Vol] 8.9 mg/dL Normal 8.5-10.2 [facility] Comment on above: Order Comment: Speci men Type: BLOOD SPECIMENOrdering Facility: [facility] Address: [address] [place] [address] Performed By: #### 2 4321-2 ####[facility] MILLWNCLIA [id number] [place] [address] [place] Chloride [Moles/Vol] 108 mmol/L High 98-107 [facility] Comment on above: Order Comment: Speci men Type: BLOOD SPECIMENOrdering Facility: [facility] Address: [address] [place] [address] Performed By: #### 2 4321-2 ####[facility]ITAL[facility]CL[facility] [id number] [place] [address] [place] CO2 [Moles/Vol] 19 mmol/L Low 22-30 [facility] Comment on above: Order Comment: Speci men Type: BLOOD SPECIMENOrdering Facility: [facility] Address: [address] [place] [address] Performed By: #### 2 4321-2 ####[facility] MILLTOWNCLIA [id number] [place] [address] [place] Creatinine [Mass/Vol] 1.10 mg/dL High 0.58-0.96 [facility] Comment on above: Order Comment: Speci men Type: BLOOD SPECIMENOrdering Facility: [facility] Address: [address] [place] [address] Performed By: #### 2 4321-2 ####[facility] MILLTOWNCLIA [id number] [place] [address] [place] Creatinine and Glomerular filtration rate.predicted panel (S/P/Bld) 50 mL/min/1.73m??? Low >=60 [facility] Comment on above: Order Comment: Margarito batista Type: BLOOD SPECIMENOrdering Facility: [facility] Address: [address] [place] [address] Result Comment: Janeen mated Glomerular Filtration Rate [...] actual GFR. Performed By: #### 2 4321-2 ####[facility] [id number] [place] [address] [place] Glucose [Mass/Vol] 90 mg/dL Normal 74-99 [facility] Comment on above: Order Comment: Margarito batista Type: BLOOD SPECIMENOrdering Facility: [facility] Address: [address] [place] [address] Result Comment: The [place] Diabetes Association (ADA) provides guidance for cutoff [...] Standards of Medical Care in Diabetes 2016, [place] [employer]. Diabetes Care. 2016.39(Suppl 1). Performed By: #### 2 4321-2 ####[facility] [id number] [place] [address] [place] Potassium [Moles/Vol] 4.2 mmol/L Normal 3.7-5.1 [facility] Comment on above: Order Comment: Speci men Type: BLOOD SPECIMENOrdering Facility: [facility] Address: [address] [place] [address] Performed By: #### 2 4321-2 ####[facility] [id number] [place] [address] [place] Sodium [Moles/Vol] 136 mmol/L Normal 136-144 [facility] Comment on above: Order Comment: Speci men Type: BLOOD SPECIMENOrdering Facility: [facility] Address: [address] [place] [address] Performed By: #### 2 4321-2 ####[facility] [id number] [place] [address] [place] Urea nitrogen [Mass/Vol] 19 mg/dL Normal 7-21 [facility] Comment on above: Order Comment: Speci men Type: BLOOD SPECIMENOrdering Facility: [facility] Address: [address] [place] [address] Performed By: #### 2 4321-2 ####[facility] [id number] [place] [address] [place] CNOVon 02-26-2024 CNOV Normal [facility] CNPNon 02-23-2024 CNPN Normal [facility] Basic metabolic 2000 panelon 02-20-2024 Anion gap [Moles/Vol] 12 mmol/L Normal 8-15 [facility] Comment on above: Order Comment: Speci men Type: BLOOD SPECIMENOrdering Facility: [facility] Address: [address] [place] [address] Performed By: #### 2 4321-2, LIPNF, 42386-7 ####[facility] LABCLIA [id number] [facility] [id number] [address] [place] Calcium [Mass/Vol] 8.9 mg/dL Normal 8.5-10.2 [facility] Comment on above: Order Comment: Speci men Type: BLOOD SPECIMENOrdering Facility: [facility] Address: [address] [place] [address] Performed By: #### 2 4321-2, LIPNF, ####[facility] LABCLIA [id number] [place] [address] [place] Chloride [Moles/Vol] 103 mmol/L Normal 98-107 [facility] Comment on above: Order Comment: Speci men Type: BLOOD SPECIMENOrdering Facility: [facility] Address: [address] [place] [address] Performed By: #### 2 4321-2, LIPNF, ####[facility] LABCLIA [id number] [place] [address] [place] CO2 [Moles/Vol] 17 mmol/L Low 22-30 [facility] Comment on above: Order Comment: Speci men Type: BLOOD SPECIMENOrdering Facility: [facility] Address: [address] [place] [address] Performed By: #### 2 4321-2, LIPNF, ####[facility] LABCLIA [id number] [place] [address] [place] Creatinine [Mass/Vol] 1.39 mg/dL High 0.58-0.96 [facility] Comment on above: Order Comment: Speci men Type: BLOOD SPECIMENOrdering Facility: [facility] Address: [address] [place] [address] Performed By: #### 2 4321-2, LIPNF, ####[facility] LABCLIA [id number] [place] [address] [place] Creatinine and Glomerular filtration rate.predicted panel (S/P/Bld) 37 mL/min/1.73m??? Low >=60 [facility] Comment on above: Order Comment: Margarito batista Type: BLOOD SPECIMENOrdering Facility: [facility] Address: [address] [place] [address] Result Comment: Jnaeen mated Glomerular Filtration Rate (eGFR) is calculated [...] GFR. Performed By: #### 2 4321-2, CARLOS, 76224-3 ####[facility] [id number] [place] [address] [place] Glucose [Mass/Vol] 100 mg/dL High 74-99 [facility] Comment on above: Order Comment: Margarito batista Type: BLOOD SPECIMENOrdering Facility: [facility] Address: [address] [place] [address] Result Comment: The [place] Diabetes Association (ADA) provides guidance for cutoff [...] Standards of Medical Care in Diabetes 2016, [place] Diabetes [employer]. Diabetes Care. 2016.39(Suppl 1). Performed By: #### 2 4321-2, CARLOS, 77035-4 ####[facility] [id number] [place] [address] [place] Potassium [Moles/Vol] 4.4 mmol/L Normal 3.7-5.1 [facility] Comment on above: Order Comment: Margarito batista Type: BLOOD SPECIMENOrdering Facility: [facility] Address: [address] [place] [address] Performed By: #### 2 4321-2, LIPNF, ####[facility] LABCLIA [id number] [place] [id number] [place] Sodium [Moles/Vol] 132 mmol/L Low 136-144 [facility] Comment on above: Order Comment: Speci men Type: BLOOD SPECIMENOrdering Facility: [facility] Address: [address] [place] [address] Performed By: #### 2 4321-2, LIPNF, ####[facility] [id number] [place] [address] [place] Urea nitrogen [Mass/Vol] 29 mg/dL High 7-21 [facility] Comment on above: Order Comment: Speci men Type: BLOOD SPECIMENOrdering Facility: [facility] Address: [address] [place] [address] Performed By: #### 2 4321-2, LIPNF, ####[facility] [id number] [place] [address] [place] CNOVon 02-20-2024 CNOV Normal [facility] CNPNon 02-20-2024 CNPN Normal [facility] HbA1c (Bld)on 02-20-2024 Average glucose Estimated from glycated hemoglobin (Bld) [Mass/Vol] 108 mg/dL Normal [facility] Comment on above: Order Comment: Speci men Type: BLOOD SPECIMENOrdering Facility: [facility] Address: [address] [place] [address] Result Comment: eAG: (Estimated average glucose) is a calculated value from HgbA1c and is inside account representative of the average blood glucose level in the last 2-3 month period. Performed By: #### 5 5454-3 ####[facility] LABCLIA [id number] [address] [id number] [address] [place] HbA1c (Bld) [Mass fraction] 5.4 % Normal 4.3-5.6 [facility] Comment on above: Order Comment: Margarito batista Type: BLOOD SPECIMENOrdering Facility: [facility] Address: [address] [place] [address] Result Comment: Sharad ican Diabetes Association guidelines indicate that patients with HgbA1c in the range 5.7-6.4% are at increased risk for development of diabetes, and intervention by lifestyle modification may be beneficial. HgbA1c greater or equal to 6.5% is considered diagnostic of diabetes. Performed By: #### 5 5454-3 ####[facility] LABCLIA [id number] [address] [place] LIPID PANEL, NONFASTINGon Cholesterol [Mass/Vol] 146 mg/dL Normal <200 [facility] Comment on above: Order Comment: Margarito batista Type: BLOOD SPECIMENOrdering Facility: [facility] Address: [address] [place] [address] Result Comment: <200 mg/dL, Desirable 200-239 mg/dL, Borderline high>239 mg/dL, High Performed By: #### 2 4321-2, LIPCORETTA, ####[facility] LABCLIA [id number] [place] [address] [place] HDL CHOLESTEROL, NF 51 mg/dL Normal >39 [facility] Comment on above: Order Comment: Margarito batista Type: BLOOD SPECIMENOrdering Facility: [facility] Address: [address] [place] [address] Result Comment: 40-5 9 mg/dL, Acceptable>59 mg/dL, High: Negative risk factor for coronary heart disease<40 mg/dL, Low: Positive risk factor for coronary heart disease Performed By: #### 2 4321-2, LIPNF, ####[facility] LABCLIA [id number] [place] [address] [place] LDL CHOLESTEROL, NF 76 mg/dL Normal <100 [facility] Comment on above: Order Comment: Margarito batista Type: BLOOD SPECIMENOrdering Facility: [facility] Address: [address] [place] [address] Result Comment: <100 mg/dL, Optimal 100-129 mg/dL, Near optimal/above optimal 130-159 mg/dL, Borderline high 160-189 mg/dL, High>189 mg/dL, Very highSecondary prevention optimal LDL Cholesterol levels are recommended to be < 70 mg/dL Performed By: #### 2 4321-2, LIPNF, ####[facility] LABCLIA [id number] [place] [address] [place] LDL/HDL RATIO, NF 1.49 mg/dL Normal <2.54 [facility] Comment on above: Order Comment: Margarito batista Type: BLOOD SPECIMENOrdering Facility: [facility] Address: [address] [place] [address] Result Comment: Irene march:1. National Cholesterol Education Program ATP III Guideline At-A-Glance Quick Desk Reference: National Heart, Lung, and Blood [place]. National Institutes of Health. 2001: NIH Publication No. 01-3305.2. An International Atherosclerosis Society position paper: global recommendations for the management of dyslipidemia: executive summary, Atherosclerosis. 2014: 232(2):410-413. Performed By: #### 2 4321-2, LIPNF, ####[facility] [id number] [place] [address] [place] NON HDL CHOL, NF 95 mg/dL Normal <130 [facility] Comment on above: Order Comment: Margarito lynne Type: BLOOD SPECIMENOrdering Facility: [facility] Address: [address] [place] [address] Result Comment: <130 mg/dL, Optimal 130-159 mg/dL, Near optimal/above optimal 160-189 mg/dL, Borderline high 190-219 mg/dL, High>219 mg/dL, Very highSecondary prevention optimal non HDL Cholesterol levels are recommended to be <100 mg/dL Performed By: #### 2 4321-2, LIPNF, ####[facility] LABCLIA [id number] [place] [address] [place] T CHOL/HDL RATIO NF 2.86 mg/dL Normal <5.10 [facility] Comment on above: Order Comment: Speci men Type: BLOOD SPECIMENOrdering Facility: [facility] Address: [address] [place] [address] Performed By: #### 2 4321-2, LIPNF, ####[facility] LABCLIA [id number] [place] [address] [place] TRIGLYCERIDES, NF 96 mg/dL Normal <150 [facility] Comment on above: Order Comment: Speci men Type: BLOOD SPECIMENOrdering Facility: [facility] Address: [address] [place] [address] Result Comment: <150 mg/dL, Normal 150-199 mg/dL, Borderline high 200-499 mg/dL, High>499 mg/dL, Very high Performed By: #### 2 4321-2, LIPNF, ####[facility] [id number] [place] [address] [place] VLDL CHOLESTEROL, NF 19 mg/dL Normal <30 [facility] Comment on above: Order Comment: Speci men Type: BLOOD SPECIMENOrdering Facility: [facility] Address: [address] [place] [address] Performed By: #### 2 4321-2, LIPNF, ####[facility] [id number] [place] [address] [place] Magnesium SerPl-mCncon 02-19 Magnesium [Mass/Vol] 1.7 mg/dL Normal 1.7-2.3 [facility] Comment on above: Order Comment: Speci men Type: BLOOD SPECIMENOrdering Facility: [facility] Address: [address] [place] [address] Performed By: #### 2 4321-2, LIPNF, 63005-5 ####[facility] LABCLIA [id number] [place] [address] [place] Urinalysis complete panel (U )on 02-20-2024 Bacteria LM.HPF (Urine sed) [#/Area] Negative Normal Negative [facility] Comment on above: Order Comment: Speci men Type: URINE SPECIMENOrdering Facility: [facility] Address: [address] [place] [address] Performed By: #### 2 4356-8 ####[facility] LABCLIA [id number] [place] [address] [place] Bilirubin Ql (U) Negative Normal Negative [facility] Comment on above: Order Comment: Speci men Type: URINE SPECIMENOrdering Facility: [facility] Address: [address] [place] [address] Performed By: #### 2 4356-8 ####[facility] LABCLIA [id number] [place] [address] [place] Clarity (Unsp spec) Clear Normal Clear [facility] Comment on above: Order Comment: Speci men Type: URINE SPECIMENOrdering Facility: [facility] Address: [address] [place] [address] Performed By: #### 2 4356-8 ####[facility] LABCLIA [id number] [place] [address] [place] Color (U) Yellow Normal Yellow [facility] Comment on above: Order Comment: Speci men Type: URINE SPECIMENOrdering Facility: [facility] Address: [address] [place] [address] Performed By: #### 2 4356-8 ####[facility] LABCLIA [id number] [place] [address] [place] Epithelial cells LM.HPF (Urine sed) [#/Area] Few Normal [facility] Comment on above: Order Comment: Speci men Type: URINE SPECIMENOrdering Facility: [facility] Address: [address] [place] [address] Performed By: #### 2 4356-8 ####[facility] LABCLIA [id number] [place] [address] [place] Glucose Test strip (U) [Mass/Vol] Negative Normal Negative [facility] Comment on above: Order Comment: Speci men Type: URINE SPECIMENOrdering Facility: [facility] Address: [address] [place] [address] Performed By: #### 2 4356-8 ####[facility] LABCLIA [id number] [place] [address] [place] Hemoglobin Ql (U) Negative Normal Negative [facility] Comment on above: Order Comment: Speci men Type: URINE SPECIMENOrdering Facility: [facility] Address: [address] [place] [address] Performed By: #### 2 4356-8 ####[facility] LABCLIA [id number] [place] [address] [place] Hyaline casts (Urine sed) [#/Area] 0 /[LPF] Normal 0 /LPF [facility] Comment on above: Order Comment: Speci men Type: URINE SPECIMENOrdering Facility: [facility] Address: [address] [place] [address] Performed By: #### 2 4356-8 ####[facility] LABCLIA [id number] [place] [address] [place] Ketones Ql (U) Trace Abnormal Negative [facility] Comment on above: Order Comment: Speci men Type: URINE SPECIMENOrdering Facility: [facility] Address: [address] [place] [address] Performed By: #### 2 4356-8 ####[facility] LABCLIA [id number] [place] [address] [place] Leukocyte esterase Test strip Ql (U) Negative Normal Negative [facility] Comment on above: Order Comment: Speci men Type: URINE SPECIMENOrdering Facility: [facility] Address: [address] [place] [address] Performed By: #### 2 4356-8 ####[facility] LABCLIA [id number] [place] [address] [place] Nitrite Ql (U) Negative Normal Negative [facility] Comment on above: Order Comment: Speci men Type: URINE SPECIMENOrdering Facility: [facility] Address: [address] [place] [address] Performed By: #### 2 4356-8 ####[facility] LABCLIA [id number] [place] [address] [place] pH (U) 5.5 [pH] Normal <8.5 [facility] Comment on above: Order Comment: Speci men Type: URINE SPECIMENOrdering Facility: [facility] Address: [address] [place] [address] Performed By: #### 2 4356-8 ####[facility] LABCLIA [id number] [place] [address] [place] Protein (U) [Mass/Vol] Trace Abnormal Negative Cl [facility] Comment on above: Order Comment: Speci men Type: URINE SPECIMENOrdering Facility: [facility] Address: [address] [place] [address] Performed By: #### 2 4356-8 ####[facility] LABCLIA [id number] [place] [address] [place] RBC LM.HPF (Urine sed) [#/Area] 0-2 /HPF Normal 0-2 /HPF [facility] Comment on above: Order Comment: Speci men Type: URINE SPECIMENOrdering Facility: [facility] Address: [address] [place] [address] Performed By: #### 2 4356-8 ####[facility] LABIA [id number] [place] [address] [place] Specific gravity (U) [Rel density] 1.032 High 1.005-1.030 [facility] Comment on above: Order Comment: Speci men Type: URINE SPECIMENOrdering Facility: [facility] Address: [address] [place] [address] Performed By: #### 2 4356-8 ####[facility] [id number] [place] [address] [place] Urobilinogen Ql (U) 0.2 EU/dL Normal 0.2-1.0 EU/dL [facility] Comment on above: Order Comment: Speci men Type: URINE SPECIMENOrdering Facility: [facility] Address: [address] [place] [address] Performed By: #### 2 4356-8 ####[facility] [id number] [place] [address] [place] WBC LM.HPF (Urine sed) [#/Area] 0-5 /HPF Normal 0-5 /HPF [facility] Comment on above: Order Comment: Speci men Type: URINE SPECIMENOrdering Facility: [facility] Address: [address] [place] [address] Performed By: #### 2 4356-8 ####[facility] [id number] [place] [address] [place] CNPNon 02-19-2024 CNPN Normal [facility] CNPNon 02-18-2024 CNPN Normal [facility] CNPNon 02-17-2024 CNPN Normal [facility] CNPTOUTREACHon 02-17-2024 CNPTOUTREACH Normal [facility] CORTISOL SERUMon 02-17-2024 CORTISOL 3.40 ug/dL Low 3.44-22.45 [facility] Comment on above: Order Comment: B Result Comment: Adul t (AM) 5.27 - 22.45 ug/dL Adult (PM) 3.44 - 16.76 ug/dL Performed By: #### L 509.6000 #### [facility] [address] [place], [address] Basic Metabolic Profile (BMP )on 02-16-2024 BUN/CRE 17.5 RATIO Normal 10-20 [facility] Comment on above: Performed By: #### L 500.2500 #### [facility] [address] [place], [address] CA,Total 8.9 mg/dL Normal 8.5-10.1 [facility] Comment on above: Performed By: #### L 500.2500 #### [facility] [address] [place], [address] Chloride [Moles/Vol] 95 mmol/L Low 98-107 [facility] Comment on above: Performed By: #### L 500.2500 #### [facility] [address] [place], [address] CO2 [Moles/Vol] 23.0 mmol/L Normal 21.0-32.0 [facility] Comment on above: Performed By: #### L 500.2500 #### [facility] [address] [place], [address] Creatinine [Mass/Vol] 1.14 mg/dL High 0.55-1.02 [facility] Comment on above: Result Comment: The validity of the calculated GFR GFRAA in patients over 70 years has not been determined. Clinical correlation is essential. Performed By: #### L 500.2500 #### [facility] [address] [place], [address] ECRCL 36.71 ml/min Normal [facility] Comment on above: Performed By: #### L 500.2500 #### [facility] [address] [place], [address] EST GFR - AA 58 mL/min Low >60 [facility] Comment on above: Result Comment: Afri can Kosovan GFR Calc Performed By: #### L 500.2500 #### [facility] [address] [place], [address] GAP 7 Normal 5-15 [facility] Comment on above: Performed By: #### L 500.2500 #### [facility] [address] [place], [address] GFR/1.73 sq M.predicted among non-blacks MDRD (S/P/Bld) [Vol rate/Area] 48 mL/min/{1.73_m2} Low >60 [facility] Comment on above: Result Comment: Non- GFR Calc Performed By: #### L 500.2500 #### [facility] [address] [place], [address] Glucose [Mass/Vol] 109 mg/dL High 74-106 [facility] Comment on above: Result Comment: Fast ing Glucose result from 100 to 125 mg/dL suggests IMPAIRED HOMEOSTASIS per A.D.A. criteria. Performed By: #### L 500.2500 #### [facility] [address] [place], [address] Potassium [Moles/Vol] 4.3 mmol/L Normal 3.5-5.1 [facility] Comment on above: Performed By: #### L 500.2500 #### [facility] [address] [place], [address] Sodium [Moles/Vol] 125 mmol/L Low 136-145 [facility] Comment on above: Performed By: #### L 500.2500 #### [facility] [address] [place], [address] Urea nitrogen [Mass/Vol] 20 mg/dL High 7-18 [facility] Comment on above: Performed By: #### L 500.2500 #### [facility] [address] [place], [address] Basic Metabolic Profile (BMP )on 02-15-2024 BUN/CRE 15.8 RATIO Normal 10-20 [facility] Comment on above: Performed By: #### L 500.2500, L100.0500 #### [facility] [address] [place], [address] CA,Total 8.3 mg/dL Low 8.5-10.1 [facility] Comment on above: Performed By: #### L 500.2500, L100.0500 #### [facility] [address] [place], [address] Chloride [Moles/Vol] 91 mmol/L Low 98-107 [facility] Comment on above: Performed By: #### L 500.2500, L100.0500 #### [facility] [address] [place], [address] CO2 [Moles/Vol] 24.0 mmol/L Normal 21.0-32.0 [facility] Comment on above: Performed By: #### L 500.2500, L100.0500 #### [facility] [address] [place], [address] Creatinine [Mass/Vol] 1.01 mg/dL Normal 0.55-1.02 [facility] Comment on above: Result Comment: The validity of the calculated GFR GFRAA in patients over 70 years has not been determined. Clinical correlation is essential. Performed By: #### L 500.2500, L100.0500 #### [facility] [address] [place], [address] ECRCL 41.43 ml/min Normal [facility] Comment on above: Performed By: #### L 500.2500, L100.0500 #### [facility] [address] [place], [address] EST GFR - AA 67 mL/min Normal >60 [facility] Comment on above: Result Comment: Afri can Kosovan GFR Calc Performed By: #### L 500.2500, L100.0500 #### [facility] [address] [place], [address] GAP 8 Normal 5-15 [facility] Comment on above: Performed By: #### L 500.2500, L100.0500 #### [facility] [address] [place], [address] GFR/1.73 sq M.predicted among non-blacks MDRD (S/P/Bld) [Vol rate/Area] 56 mL/min/{1.73_m2} Low >60 [facility] Comment on above: Result Comment: Non- GFR Calc Performed By: #### L 500.2500, L100.0500 #### [facility] [address] [place], [address] Glucose [Mass/Vol] 108 mg/dL High 74-106 [facility] Comment on above: Result Comment: Fast ing Glucose result from 100 to 125 mg/dL suggests IMPAIRED HOMEOSTASIS per A.D.A. criteria. Performed By: #### L 500.2500, L100.0500 #### [facility] [address] [place], [address] Potassium [Moles/Vol] 4.0 mmol/L Normal 3.5-5.1 [facility] Comment on above: Performed By: #### L 500.2500, L100.0500 #### [facility] [address] [place], [address] Sodium [Moles/Vol] 123 mmol/L Low 136-145 [facility] Comment on above: Performed By: #### L 500.2500, L100.0500 #### [facility] [address] [place], [address] Urea nitrogen [Mass/Vol] 16 mg/dL Normal 7-18 [facility] Comment on above: Performed By: #### L 500.2500, L100.0500 #### [facility] [address], [address] CBC-Complete Blood Cnt No Di ffon 02-15-2024 Erythrocyte distribution width (RBC) [Ratio] 12.6 % Normal 11.6-14.6 [facility] Comment on above: Performed By: #### L 500.2500, L100.0500 #### [facility] [address] [place], [address] Hematocrit (Bld) [Volume fraction] 25.9 % Low 37-47 [facility] Comment on above: Performed By: #### L 500.2500, L100.0500 #### [facility] [address] [place], [address] Hemoglobin (Bld) [Mass/Vol] 9.2 g/dL Low 12.0-15.0 [facility] Comment on above: Performed By: #### L 500.2500, L100.0500 #### [facility] [address] [place], [address] MCH (RBC) [Entitic mass] 32.5 pg High 27.0-32.0 [facility] Comment on above: Performed By: #### L 500.2500, L100.0500 #### [facility] [address] [place], [address] MCHC (RBC) [Mass/Vol] 35.5 g/dL Normal 32-36 [facility] Comment on above: Performed By: #### L 500.2500, L100.0500 #### [facility] [address] [place], [address] MCV (RBC) [Entitic vol] 91.5 fL Normal 81-99 [facility] Comment on above: Performed By: #### L 500.2500, L100.0500 #### [facility] [address] [place], [address] Platelet mean volume (Bld) [Entitic vol] 9.2 fL Normal 6.2-12.0 [facility] Comment on above: Performed By: #### L 500.2500, L100.0500 #### [facility] [address] [place], [address] Platelets (Bld) [#/Vol] 205 10*3/uL Normal 150-450 [facility] Comment on above: Performed By: #### L 500.2500, L100.0500 #### [facility] [address] [place], [address] RBC (Bld) [#/Vol] 2.83 10*6/uL Low 4.2-5.4 [facility] Comment on above: Performed By: #### L 500.2500, L100.0500 #### [facility] [address] [place], [address] RDW SD 42.5 fl Normal 35.1-43.9 [facility] Comment on above: Performed By: #### L 500.2500, L100.0500 #### [facility] [address] [place], [address] WBC (Bld) [#/Vol] 6.9 10*3/uL Normal 4.4-11.0 [facility] Comment on above: Performed By: #### L 500.2500, L100.0500 #### [facility] [address] [place], [address] Osmolality, Urineon 02-15-20 24 OSMOLALITY,UR 261 mOsm/KG Normal [facility] Comment on above: Result Comment: Normal Urine Reference Ranges Random: 50 - 1200 mOsm/kg H20 depending on fluid intake Random: >850 mOsm/kg after 12 hour fluid restriction 24 hour: 300 - 900 mOsm/kg H2O Performed By: #### L 509.6000 #### [facility] [address] [place], [address] Sodium Levelon 02-15-2024 Sodium [Moles/Vol] 123 mmol/L Low 136-145 [facility] Comment on above: Performed By: #### L 501.5300 #### [facility] [address] [place], [address] Urinalysis, Completeon 02-14 EPI,SQUAMOUS 5-10 SEEN Normal 5-10 [facility] Comment on above: Order Comment: CLEAN CATCH Performed By: #### L 400.0001 #### [facility] [address] [place], [address] WBC 0-5 SEEN Normal 0-5 [facility] Comment on above: Order Comment: CLEAN CATCH Performed By: #### L 400.0001 #### [facility] [address] [place], [address] BACTERIA 0 SEEN Normal None Seen [facility] Comment on above: Order Comment: CLEAN CATCH Performed By: #### L 400.0001 #### [facility] [address] [place], [address] Mucus Ql (Urine sed) 0 SEEN Normal [facility] Comment on above: Order Comment: CLEAN CATCH Performed By: #### L 400.0001 #### [facility] [address] [place], [address] RBC 0 SEEN Normal 0-5 [facility] Comment on above: Order Comment: CLEAN CATCH Performed By: #### L 400.0001 #### [facility] [address] [place], [address] Urine Sodiumon 02-15-2024 Sodium (U) [Moles/Vol] 23 mmol/L Normal Not Establ. [facility] Comment on above: Performed By: #### L 509.6000 #### [facility] [address] [place], [address] CNPNon 02-14-2024 CNPN Normal [facility] ilon 02-14-2024 Albumin [Mass/Vol] 2.7 g/dL Low 3.2-5.0 [facility] Comment on above: Performed By: #### L 509.6000 #### [facility] [address] [place], [address] Albumin/Globulin [Mass ratio] 0.9 {ratio} Normal 0.9-2.4 [facility] Comment on above: Performed By: #### L 509.6000 #### [facility] [address] [place], [address] ALK P 54 U/L Normal 45-117 [facility] Comment on above: Performed By: #### L 509.6000 #### [facility] [address] [place], [address] ALT [Catalytic activity/Vol] 18 U/L Normal 13-56 [facility] Comment on above: Performed By: #### L 509.6000 #### [facility] [address] [place], [address] AST [Catalytic activity/Vol] 18 U/L Normal 15-37 [facility] Comment on above: Performed By: #### L 509.6000 #### [facility] [address] [place], [address] Bilirubin [Mass/Vol] 0.50 mg/dL Normal 0.20-1.00 [facility] Comment on above: Result Comment: For patients on eltrombopag therapy, use of Dimension [place] TBIL is not recommended. Performed By: #### L 509.6000 #### [facility] [address] [place], [address] BUN/CRE 13.0 RATIO Normal 10-20 [facility] Comment on above: Performed By: #### L 509.6000 #### [facility] [address] [place], [address] CA,Total 8.3 mg/dL Low 8.5-10.1 [facility] Comment on above: Performed By: #### L 509.6000 #### [facility] [address] [place], [address] Chloride [Moles/Vol] 92 mmol/L Low 98-107 [facility] Comment on above: Performed By: #### L 509.6000 #### [facility] [address] [place], [address] CO2 [Moles/Vol] 23.0 mmol/L Normal 21.0-32.0 [facility] Comment on above: Performed By: #### L 509.6000 #### [facility] [address] [place], [address] Creatinine [Mass/Vol] 1.23 mg/dL High 0.55-1.02 [facility] Comment on above: Result Comment: The validity of the calculated GFR GFRAA in patients over 70 years has not been determined. Clinical correlation is essential. Performed By: #### L 509.6000 #### [facility] [address] [place], [address] ECRCL 34.02 ml/min Normal [facility] Comment on above: Performed By: #### L 509.6000 #### [facility] [address] [place], [address] EST GFR - AA 54 mL/min Low >60 [facility] Comment on above: Result Comment: Afri can Kosovan GFR Calc Performed By: #### L 509.6000 #### [facility] [address] [place], [address] GAP 10 Normal 5-15 [facility] Comment on above: Performed By: #### L 509.6000 #### [facility] [address] [place], [address] GFR/1.73 sq M.predicted among non-blacks MDRD (S/P/Bld) [Vol rate/Area] 44 mL/min/{1.73_m2} Low >60 [facility] Comment on above: Result Comment: Non- GFR Calc Performed By: #### L 509.6000 #### [facility] [address] [place], [address] Globulin (S) [Mass/Vol] 3.1 g/dL Normal 2.2-4.2 [facility] Comment on above: Performed By: #### L 509.6000 #### [facility] [address] [place], [address] Glucose [Mass/Vol] 142 mg/dL High 74-106 [facility] Comment on above: Result Comment: Fast ing Glucose result greater than or equal to 126 mg/dL suggests DIABETES MELLITUS per A.D.A. criteria. Performed By: #### L 509.6000 #### [facility] [address] [place], [address] Potassium [Moles/Vol] 3.5 mmol/L Normal 3.5-5.1 [facility] Comment on above: Performed By: #### L 509.6000 #### [facility] [address] [place], [address] Sodium [Moles/Vol] 125 mmol/L Low 136-145 [facility] Comment on above: Performed By: #### L 509.6000 #### [facility] [address] [place], [address] T PROT 5.8 g/dL Low 6.4-8.2 [facility] Comment on above: Performed By: #### L 509.6000 #### [facility] [address] [place], [address] Urea nitrogen [Mass/Vol] 16 mg/dL Normal 7-18 [facility] Comment on above: Performed By: #### L 509.6000 #### [facility] [address] [place], [address] Magnesiumon 02-14-2024 Magnesium [Mass/Vol] 1.7 mg/dL Normal 1.6-2.6 [facility] Comment on above: Performed By: #### L 509.6000 #### [facility] [address] [place], [address] Osmolality, Serumon 02-14-20 24 OSMOLALITY,SER 261 mOsm/KG Low 280-301 [facility] Comment on above: Performed By: #### L 501.7300 #### [facility] [address] [place], [address] Phosphoruson 02-14-2024 Phosphate [Mass/Vol] 2.8 mg/dL Normal 2.5-4.9 [facility] Comment on above: Performed By: #### L 509.6000 #### [facility] [address] [place], [address] Thyroid Stim Hormone (TSH)on 02-14-2024 TSH 3.220 uIU/mL Normal 0.358-3.740 [facility] Comment on above: Performed By: #### L 509.6000 #### [facility] [address] [place], [address] Uric Acidon 02-14-2024 URIC 4.0 mg/dL Normal 2.6-6.0 [facility] Comment on above: Result Comment: The drugs N-Acetylcysteine and Metamizole may falsely depress this assay. Performed By: #### L 509.6000 #### [facility] [address] [place], [address] Basic Metabolic Profile (BMP )on 02-13-2024 BUN/CRE 12.2 RATIO Normal 10-20 [facility] Comment on above: Performed By: #### L 100.0100, L500.2500 #### [facility] [address] [place], [address] CA,Total 8.8 mg/dL Normal 8.5-10.1 [facility] Comment on above: Performed By: #### L 100.0100, L500.2500 #### [facility] [address] [place], [address] Chloride [Moles/Vol] 93 mmol/L Low 98-107 [facility] Comment on above: Performed By: #### L 100.0100, L500.2500 #### [facility] [address] [place], [address] CO2 [Moles/Vol] 26.0 mmol/L Normal 21.0-32.0 [facility] Comment on above: Performed By: #### L 100.0100, L500.2500 #### [facility] [address] [place], [address] Creatinine [Mass/Vol] 1.39 mg/dL High 0.55-1.02 [facility] Comment on above: Result Comment: The validity of the calculated GFR GFRAA in patients over 70 years has not been determined. Clinical correlation is essential. Performed By: #### L 100.0100, L500.2500 #### [facility] [address] [place], [address] EST GFR - AA 46 mL/min Low >60 [facility] Comment on above: Result Comment: Afri can Kosovan GFR Calc Performed By: #### L 100.0100, L500.2500 #### [facility] [address] [place], [address] GAP 8 Normal 5-15 [facility] Comment on above: Performed By: #### L 100.0100, L500.2500 #### [facility] [address] [place], [address] GFR/1.73 sq M.predicted among non-blacks MDRD (S/P/Bld) [Vol rate/Area] 38 mL/min/{1.73_m2} Low >60 [facility] Comment on above: Result Comment: Non- GFR Calc Performed By: #### L 100.0100, L500.2500 #### [facility] [address] [place], [address] Glucose [Mass/Vol] 90 mg/dL Normal 74-106 [facility] Comment on above: Performed By: #### L 100.0100, L500.2500 #### [facility] [address] [place], [address] Potassium [Moles/Vol] 3.7 mmol/L Normal 3.5-5.1 [facility] Comment on above: Performed By: #### L 100.0100, L500.2500 #### [facility] [address] [place], [address] Sodium [Moles/Vol] 127 mmol/L Low 136-145 [facility] Comment on above: Performed By: #### L 100.0100, L500.2500 #### [facility] [address] [place], [address] Urea nitrogen [Mass/Vol] 17 mg/dL Normal 7-18 [facility] Comment on above: Performed By: #### L 100.0100, L500.2500 #### [facility] [address] [place], [address] CBC W/Diff, Automatedon 09-0 5-2023 Absolute Lymph 1.09 X10 3/uL Normal 0.83-4.51 [facility] Comment on above: Performed By: #### L 100.0100, L500.2500 #### [facility] [address] [place], [address] Absolute Neut 9.2 X10 3/uL High 2.0-7.7 [facility] Comment on above: Performed By: #### L 100.0100, L500.2500 #### [facility] [address] [place], [address] Basophils/100 WBC (Bld) 0.3 % Normal 0-1 [facility] Comment on above: Performed By: #### L 100.0100, L500.2500 #### [facility] [address] [place], [address] Eosinophils/100 WBC (Bld) 0.3 % Normal 0-5 [facility] Comment on above: Performed By: #### L 100.0100, L500.2500 #### [facility] [address] [place], [address] Erythrocyte distribution width (RBC) [Ratio] 13.0 % Normal 11.6-14.6 [facility] Comment on above: Performed By: #### L 100.0100, L500.2500 #### [facility] [address] [place], [address] Hematocrit (Bld) [Volume fraction] 32.7 % Low 37-47 [facility] Comment on above: Performed By: #### L 100.0100, L500.2500 #### [facility] [address] [place], [address] Hemoglobin (Bld) [Mass/Vol] 11.8 g/dL Low 12.0-15.0 [facility] Comment on above: Performed By: #### L 100.0100, L500.2500 #### [facility] [address] [place], [address] IG% 0.800 Normal 0.0-0.9 [facility] Comment on above: Result Comment: IG% - Immature Granulocytes (promyelocytes, myelocytes and metamyelocytes) > 1% indicates that a LEFT SHIFT is Present. Performed By: #### L 100.0100, L500.2500 #### [facility] [address] [place], [address] Lymphocytes/100 WBC (Bld) 9.4 % Low 19-41 [facility] Comment on above: Performed By: #### L 100.0100, L500.2500 #### [facility] [address] [place], [address] MCH (RBC) [Entitic mass] 33.4 pg High 27.0-32.0 [facility] Comment on above: Performed By: #### L 100.0100, L500.2500 #### [facility] [address] [place], [address] MCHC (RBC) [Mass/Vol] 36.1 g/dL High 32-36 [facility] Comment on above: Performed By: #### L 100.0100, L500.2500 #### [facility] [address] [place], [address] MCV (RBC) [Entitic vol] 92.6 fL Normal 81-99 [facility] Comment on above: Performed By: #### L 100.0100, L500.2500 #### [facility] [address] [place], [address] Monocytes/100 WBC (Bld) 10.0 % Normal 0-10 [facility] Comment on above: Performed By: #### L 100.0100, L500.2500 #### [facility] [address] [place], [address] Neutrophils/100 WBC (Bld) 79.2 % High 47-70 [facility] Comment on above: Performed By: #### L 100.0100, L500.2500 #### [facility] [address] [place], [address] Nucleated RBC (Bld) [#/Vol] 0 10*3/uL Normal 0-5 [facility] Comment on above: Performed By: #### L 100.0100, L500.2500 #### [facility] [address] [place], [address] Platelet mean volume (Bld) [Entitic vol] 9.5 fL Normal 6.2-12.0 [facility] Comment on above: Performed By: #### L 100.0100, L500.2500 #### [facility] [address] [place], [address] Platelets (Bld) [#/Vol] 281 10*3/uL Normal 150-450 [facility] Comment on above: Performed By: #### L 100.0100, L500.2500 #### [facility] [address] [place], [address] RBC (Bld) [#/Vol] 3.53 10*6/uL Low 4.2-5.4 [facility] Comment on above: Performed By: #### L 100.0100, L500.2500 #### [facility] [address] [place], [address] RDW SD 44.0 fl High 35.1-43.9 [facility] Comment on above: Performed By: #### L 100.0100, L500.2500 #### [facility] [address] [place], [address] WBC (Bld) [#/Vol] 11.6 10*3/uL High 4.4-11.0 [facility] Comment on above: Performed By: #### L 100.0100, L500.2500 #### [facility] [address] [place], [address] Elbow min 3 Viewson 02-13-20 24 Elbow min 3 Views [facility] Services [address] [place] [address] Elbow min 3 Views MR#: [id number] Acct: [id number] Name: LEONOR PAL Rep #: [id number] : 1940 F 83 From: Edward cox MD PCP: Dr. Chencho Urbina MD Status: REG ER Study: Elbow min 3 Views Date of Exam: 02/13/24 Exam# [id number] Ordering Dr: Isis Mancini DO [id number] STUDY: X-RAY - RIGHT ELBOW REASON FOR [...] Isis Mancini DO; Dr. Chencho Urbina MD Rag Sorter: Signed Normal [facility] Emergency Department Summary on 02-13-2024 Emergency Department Summary [facility] Medical Records Department [address] [place] [address] Emergency Department Summary 02/13/24 MR#: [id number] Acct: [id number] Name: LEONOR PAL Rep #: [id number] : 1940 83 From: Isis Mancini DO PCP: Dr. Chencho Urbina MD Status:ADM IN Location: [address] History of Present Illness Chief Complaint: Fall Informant: patient Narrative Narrative: Patient is an 83-year-old female with history of sciatica on the right side, hypertension, colon cancer status post right hemicolectomy, CKD 3 and hyperlipidemia presenting with right hip pain after a fall. 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 [facility] Medical History Wears dentures Wears glasses Post-menopausal [...] BID-TID vertigo 04/09/19 01/31/20 08:00 History 1 htecfegs-kefe-zzda 8 mg-folic 400 1 tab PO DAILY [...] Myocardial infarction, Onset Age: 47 from an [place] age 48 Brother CVA (cerebral vascular accident) [...] Eyes PE (more content not included)... Normal [facility] H AND P Exam - Hospitaliston 02-13-2024 H&P Exam - Hospitalist [facility] Medical Records Department [address] [place] [address] H P Exam - Hospitalist 02/13/24 1133 MR#: [id number] Acct: [id number] Name: LEONOR PAL Rep #: [id number] : 1940 83 From: Ayaka Cuba DO PCP: Dr. Chencho Urbina MD Status:ADM IN Location: [facility] [place] [place] EA006-5 HPI - General General Date of Admission: 02/13/24 Date of Service: 02/13/24 Chief Complaint: Inability to walk status post mechanical fall HPI Narrative LEONOR PAL, is a 83 F who presented to the emergency department at [facility] on 02/13/2024 after sustaining a [...] laboratory abnormalities which need addressed as well. [facility] Medical History Aneurysm Anxiety Depression Hx of [...] BID-TID vertigo 04/09/19 01/31/20 08:00 History 1 asyxtekj-nlbs-dgyl 8 mg-folic 400 1 tab PO DAILY [...] Myocardial infarction, Onset Age: 47 from an [place] age 48 Brother CVA (cerebral vascular accident) [...] weakness or (more content not included)... Normal [facility] HIP, UNI W/ Pelvis 2-3 Views on 02-13-2024 HIP, UNI W/ Pelvis 2-3 Views [facility] Imaging Services [address] [facility] [place], [place] [id number] HIP, UNI W/ Pelvis 2-3 Views MR#: [id number] Acct: [id number] Name: LEONOR PAL Rep #: [id number] : 1940 F 83 From: Edward cox MD PCP: Dr. Chencho Urbina MD Status: REG ER Study: HIP, UNI W/ Pelvis 2-3 Views Date of Exam: 10/31 Exam# [id number] Ordering Dr: Isis Mancini DO [id number] STUDY: X-RAY - PELVIS AND RIGHT HIP [...] Isis Mancini DO; Dr. Chencho Urbina MD Rag Sorter: Signed Normal [facility] Vitamin D,25 Hydroxyon 02-12 Vitamin D 25-OH 63.2 ng/mL Normal [facility] Comment on above: Result Comment: Qian min D 25(OH) Status Range Deficiency <20 ng/mL (50nmol/L) Insufficiency 20 - 30 ng/mL (50 - 75 nmol/L) Sufficiency 30 - 100 ng/mL (75 - 250 nmol/L) Toxicity >100 ng/mL (>250 nmol/L) Performed By: #### L 506.1000 #### [facility] [address] [place], [address] CNPNon 01-01-2024 [facility] 25(OH)D3 [facility] 2023 25-hydroxyvitamin D3 [Mass/Vol] 54.7 ng/mL Normal 31.0-80.0 [facility] Comment on above: Order Comment: Speci men Type: BLOOD SPECIMENOrdering Facility: [facility] Address: [address] [place] [address] Result Comment: Clas sification of 25 [place] Vitamin D status:Deficiency/Insufficiency: < or = 30 ng/ml.Sufficiency/Optimal Levels: 31-80 ng/mLToxicity: > 100 ng/mL.Test performed by chemiluminescent immunoassay. Performed By: #### 1 989-3 ####[facility] LABCLIA [id number] [place] [id number] [place] CNPNon 11-15-2023 CNPN Normal [facility] CT Neck W contrast Agata 06-0 * * *Final Report* * * DATE OF EXAM: Nov 15 2023 10:01AM [facility] 0024 - CTA NECK W IVCON [...] occlusion, or aneurysm. DIVISION OF RADIOLOGY Provider, [facility] - 11/15/2023 * * *Final Report* * * DATE OF EXAM: Nov 15 2023 10:01AM [facility] 0024 - CTA NECK W IVCON [...] by computer aided detection software: Not Performed Rag Sorter: CECILE Transcribe Date/Time: Nov 15 2023 11:26A Dictated by : YANET DAVIDSON MD This examination was interpreted and the report reviewed and electronically signed by: YANET DAVIDSON MD on Nov 15 2023 11:33AM EST [facility] CTA HEAD W IVCONon CTA HEAD W IVCON Normal [facility] CTA Head Arteries W contrast Agata 11-15-2023 * * *Final Report* * * DATE OF EXAM: Nov 15 2023 10:01AM [facility] 0022 - CTA HEAD W IVCON [...] occlusion, or aneurysm. DIVISION OF RADIOLOGY Provider, [facility] - 11/15/2023 * * *Final Report* * * DATE OF EXAM: Nov 15 2023 10:01AM [facility] 0022 - CTA HEAD W IVCON [...] by computer aided detection software: Not Performed Rag Sorter: CECILE Transcribe Date/Time: Nov 15 2023 11:26A Dictated by : YANET DAVIDSON MD This examination was interpreted and the report reviewed and electronically signed by: YANET DAVIDSON MD on Nov 15 2023 11:33AM EST [facility] CTA NECK W IVCONon 4 CTA NECK W IVCON Normal [facility] Comprehensive metabolic 2000 panelon 11-15-2023 Albumin [Mass/Vol] 4.1 g/dL Normal 3.9-4.9 [facility] Comment on above: Order Comment: Speci men Type: BLOOD SPECIMENOrdering Facility: [facility] Address: [address] [place] [address] Performed By: #### 2 4323-8, ####[facility] PLACIDMARLENYLIA [id number] [place] [address] [place] ALP [Catalytic activity/Vol] 59 U/L Normal 34-123 [facility] Comment on above: Order Comment: Speci men Type: BLOOD SPECIMENOrdering Facility: [facility] Address: [address] [place] [address] Performed By: #### 2 4323-8, ####[facility]PITALA [id number] [place] [address] [place] ALT [Catalytic activity/Vol] 9 U/L Normal 7-38 [facility] Comment on above: Order Comment: Speci men Type: BLOOD SPECIMENOrdering Facility: [facility] Address: [address] [place] [address] Performed By: #### 2 4323-8, ####[facility] PLACIDNCLIA [id number] [place] [address] [place] Anion gap [Moles/Vol] 11 mmol/L Normal 8-15 [facility] Comment on above: Order Comment: Speci men Type: BLOOD SPECIMENOrdering Facility: [facility] Address: [address] [place] [address] Performed By: #### 2 4328, ####[facility] MILLTOWNCLIA [id number] [place] [address] [place] AST [Catalytic activity/Vol] 19 U/L Normal 13-35 [facility] Comment on above: Order Comment: Speci men Type: BLOOD SPECIMENOrdering Facility: [facility] Address: [address] [place] [address] Performed By: #### 2 432-8, ####[facility] MILLTOWNCLIA [id number] [place] [address] [place] Bilirubin [Mass/Vol] 0.5 mg/dL Normal 0.2-1.3 [facility] Comment on above: Order Comment: Speci men Type: BLOOD SPECIMENOrdering Facility: [facility] Address: [address] [place] [address] Performed By: #### 2 432-8, ####[facility] HOSPITALWNCLIA [id number] [place] [address] [place] Calcium [Mass/Vol] 9.1 mg/dL Normal 8.5-10.2 [facility] Comment on above: Order Comment: Speci men Type: BLOOD SPECIMENOrdering Facility: [facility] Address: [address] [place] [address] Performed By: #### 2 4328, ####[facility] HOSPITALWNCLIA [id number] [place] [address] [place] Chloride [Moles/Vol] 98 mmol/L Normal 98-107 [facility] Comment on above: Order Comment: Speci men Type: BLOOD SPECIMENOrdering Facility: [facility] Address: [address] [place] [address] Performed By: #### 2 4323-8, ####[facility] MILLWNCLIA [id number] [place] [address] [place] CO2 [Moles/Vol] 22 mmol/L Normal 22-30 [facility] Comment on above: Order Comment: Margarito batista Type: BLOOD SPECIMENOrdering Facility: [facility] Address: [address] [place] [address] Performed By: #### 2 4323-8, 40373-2 ####[facility] [id number] [place] [address] [place] Creatinine [Mass/Vol] 1.23 mg/dL High 0.58-0.96 [facility] Comment on above: Order Comment: Speci men Type: BLOOD SPECIMENOrdering Facility: [facility] Address: [address] [place] [address] Performed By: #### 2 4323-8, ####[facility] [id number] [place] [address] [place] Creatinine and Glomerular filtration rate.predicted panel (S/P/Bld) 43 mL/min/1.73m??? Low >=60 [facility] Comment on above: Order Comment: Margarito batista Type: BLOOD SPECIMENOrdering Facility: [facility] Address: [address] [place] [address] Result Comment: Janeen mated Glomerular Filtration Rate [...] GFR. Performed By: #### 2 4323-8, ####[facility] PLACIDNCLIA [id number] [place] [address] [place] Glucose [Mass/Vol] 104 mg/dL High 74-99 [facility] Comment on above: Order Comment: Speci men Type: BLOOD SPECIMENOrdering Facility: [facility] Address: [address] [place] [address] Result Comment: The [place] Diabetes Association (ADA) provides guidance for cutoff [...] Standards of Medical Care in Diabetes 2016, [place] [employer] Association. Diabetes Care. 2016.39(Suppl 1). Performed By: #### 2 4323-8, 18265-4 ####[facility] HOSPITALMannie [id number] [place] [address] [place] Potassium [Moles/Vol] 3.7 mmol/L Normal 3.7-5.1 [facility] Comment on above: Order Comment: Margarito batista Type: BLOOD SPECIMENOrdering Facility: [facility] Address: [address] [place] [address] Performed By: #### 2 4323-8, ####[facility] COL[facility]BUSMYKE [id number] [place] [address] [place] Protein [Mass/Vol] 7.2 g/dL Normal 6.3-8.0 [facility] Comment on above: Order Comment: Margarito men Type: BLOOD SPECIMENOrdering Facility: [facility] Address: [address] [place], [place] [address] Performed By: #### 2 4323-8, ####[facility] HOSPITALWNCLIA [id number] [place] [address] [place] Sodium [Moles/Vol] 131 mmol/L Low 136-144 [facility] Comment on above: Order Comment: Speci men Type: BLOOD SPECIMENOrdering Facility: [facility] Address: [facility] [place] [address] Performed By: #### 2 4323-8, 03436-4 ####[facility] [id number] [place] [address] [place] Urea nitrogen [Mass/Vol] 16 mg/dL Normal 7-21 [facility] Comment on above: Order Comment: Speci men Type: BLOOD SPECIMENOrdering Facility: [facility] Address: [address] [place] [address] Performed By: #### 2 4323-8, ####[facility] [id number] [address] [place] Magnesium SerPl-mCncon 11-14 Magnesium [Mass/Vol] 1.7 mg/dL Normal 1.7-2.3 [facility] Comment on above: Order Comment: Speci men Type: BLOOD SPECIMENOrdering Facility: [facility] Address: [facility] [place] [address] Performed By: #### 2 4323-8, 03382-1 ####[facility] PLACIDNCLI [id number] [place] [address] [place] No Panel Informationon [...] by computer aided detection software: Not Performed Rag Sorter: CECILE Transcribe Date/Time: Nov 15 2023 11:26A Dictated by : YANET DAVIDSON MD This examination was interpreted and the report reviewed and electronically signed by: YANET DAVIDSON MD on Nov 15 2023 11:33AM [facility] DIVISION OF RADIOLOGY Radiology Study observation (narrative) [facility] No Panel InformationOrdered By: Ccf Provider on 11-15-2023 [facility] PTH-Intact SerPl-mCncon 06-0 Parathyrin.intact [Mass/Vol] 45 pg/mL Normal 15-65 [facility] Comment on above: Order Comment: Speci men Type: BLOOD SPECIMENOrdering Facility: [facility] Address: [address] [place] [address] Performed By: #### 2 731-8 ####[facility] LABCLIA [id number] [facility] [id number] [place] [address] CNOVon 05-16-2023 CNOV Office Visit (NEV) KAELEONOR Taylor ([id number]) 1940 F NFR Date Time Provider Department 05/16/23 9:30 AM KIERRA ALFARO [facility] During your visit today, we recorded the following information about you: Pulse Respiration Blood pressure Weight 64/minute 16/minute 125/81 67.4 kg Height 1.575 m Kierra Alfaro MD 05/17/2023 2:15 PM Signed [facility] Established Visit Leonor Pal [facility]#: [id number] Date of Service: 05/16/2023 Primary Care Provider: [...] 65%, with mild diast dysf and 1+ UT. CARDIAC STRESS TEST 05/01/2017 negative CHOLECYSTECTOMY 1985 [...] [Sertraline] Medications: Current Outpatient Medications Medication Sig ikaeogu-kjfcydprp-ycbt min D3 500 mg-5 mcg (200 unit) [...] Use V (more content not included)... Normal [facility]2023 [facility] LEONOR PAL ([id number]) 1940 F NFR Date Time Provider Department [facility] During your visit today, we recorded the [...] with to follow-up after parathyroidectomy and sent Environmental [employer] message Prescriptions as of 04/11/2023 - meclizine (ANTIVERT) 12.5 mg tab Take 1 tablet by mouth two times a day. - acetaminophen (TYLENOL) 500 mg tablet Take 1 tablet by mouth every 4 hours as needed for pain. - ttcnblr-mwzqlwduz-okso min D3 500 mg-5 mcg (200 unit) [...] Status:Closed by WILLIAM CAMARA on 04/11/23 Normal [facility] Calcium [facility]-ncon 023 Calcium [Mass/Vol] 9.5 mg/dL Normal 8.5-10.2 [facility] Comment on above: Order Comment: Speci men Type: BLOOD SPECIMENOrdering Facility: [facility] Address: [address] [place] [address] Performed By: #### 1 7861-6 ####[facility] LABORATORYCLIA [id number] [place] [id number] [place] PTH-Intact [facility] 03-10 Parathyrin.intact [Mass/Vol] 11 pg/mL Low [facility] Comment on above: Order Comment: Speci men Type: BLOOD SPECIMENOrdering Facility: [facility] Address: [address] [place] [address] Performed By: #### 2 731-8 ####[facility] LABORATORYCLIA [id number] [place] [address] [place] ANES POSTPROC EVALon 023 ANES POSTPROC EVAL HNO ID: [id number] Author: Farshad Jovel MD Service: Anesthesiology Author Type: Anesthesiologist Type: Anesthesia Postprocedure Evaluation Filed: 03/25/2023 3:58 PM Note Text: POST ANESTHESIA EVALUATION NOTE : 1940 Procedure Summary Date: 03/25/23 Room / Location: [place] [address] / OR Anesthesia Start: 737 Anesthesia Stop: [...] March 25, 2023 TIME: 3:57 PM CSN: [id number] [facility] ANES PRE-OPon 03-25-2023 ANES PRE-OP HNO ID: [id number] Author: Farshad Jovel MD Service: Anesthesiology Author [...] and consent discussed: yes. Patient / Responsible Democrat agrees to proceed: yes Patient / Surrogate [...] March 25, 2023 TIME: 6:46 AM CSN: [id number] [facility] BRIEF OP NOTon 03-25-2023 BRIEF OP NOT HNO ID: [id number] Author: Marline Brito Jr., MD Service: ? Author Type: Physician Type: Brief Op Note Filed: 03/25/2023 10:39 AM Note Text: Brief Operative Note Patient Name: Leonor Pal LOG ID: [id number] Surgery/Procedure Date: 03/25/2023 Surgeon(s)/Procedurali st(s) and Senior Clinical Data Analyst(s): Surgeon(s) and Role: * Marge Hayes MD [...] MD DATE: 03/25/23 TIME: 10:39 AM Normal [facility] HBV core Ab Ser Qlon 023 HBV core Ab Ql (S) Negative Normal Negative [facility] Comment on above: Order Comment: Speci men Type: BLOOD SPECIMENOrdering Facility: [facility] Address: [address] [place] [address] Result Comment: No e vidence of current or past infection with Hepatitis B virus. Should recent infection be suspected, repeat testing may be considered 3-4 weeks after this draw. Performed By: #### 3 1201-7, 91061-0, 5-3 ####[facility] LABCLIA [id number] [place] [address] [place] HBV surface Ag Ser Qlon 03-10 HBV surface Ag Ql (S) Negative Normal Negative [facility] Comment on above: Order Comment: Speci men Type: BLOOD SPECIMENOrdering Facility: [facility] Address: [address] [place] [address] Performed By: #### 3 1201-7, 40804-2, 5-3 ####[facility] LABCLIA [id number] [place] [address] [place] HCV Ab Ser Qlon 03-25-2023 HCV Ab Ql (S) Negative Normal Negative [facility] Comment on above: Order Comment: Speci men Type: BLOOD SPECIMENOrdering Facility: [facility] Address: [address] [place] [address] Result Comment: The result suggests no evidence of active infection with Hepatitis C virus. Should recent infection be suspected, repeat testing may be considered 4-6 weeks after this draw. Performed By: #### 1 6128-1 ####[facility] LABCLIA [id number] [place] [address] [place] HIV 1+2 Ab IA Qlon 3 HIV 1 and 2 Ab IA.rapid Nom Normal [facility] Comment on above: Order Comment: Speci men Type: BLOOD SPECIMENOrdering Facility: [facility] Address: [address] [place] [address] Result Comment: Test not indicated. Performed By: #### 3 1201-7, 30495-0, 5-3 ####[facility] LABCLIA [id number] [place] [address] [place] HIV 1+2 Ab+HIV1 p24 Ag IA Ql Non-Reactive Normal Nonreactive [facility] Comment on above: Order Comment: Speci men Type: BLOOD SPECIMENOrdering Facility: [facility] Address: [address] [place] [address] Performed By: #### 3 1201-7, 50926-8, 5195-3 ####[facility] LABCLIA [id number] [place] [address] [place] HIV immunoassay testing algorithm interpretation (S/P/Bld) [Interp] [facility] Comment on above: Order Comment: Speci men Type: BLOOD SPECIMENOrdering Facility: [facility] Address: [address] [place] [address] Result Comment: No e vidence of HIV-1 or HIV-2 infection. Should recent infection be suspected, repeat testing may be considered 2-3 weeks after this draw. [place] Rev. Code 3701.243(E): This information has been [...] or diagnoses. Performed By: #### 3 1201-7, 97629-8, 5195-3 ####[facility] LABCLIA [id number] [place] [address] [place] INTRAOPERATIVE PTHon 10-16-2 023 INTRAOPERATIVE PTH 24 pg/mL Normal 15-65 [facility] Comment on above: Order Comment: Speci men Type: BLOOD SPECIMENOrdering Facility: [facility] Address: [address] [place] [address] Performed By: #### R IPTH ####[facility] LABORATORYCLIA [id number] [place] [address] [place] INTRAOPERATIVE PTH 38 pg/mL Normal 15-65 [facility] Comment on above: Order Comment: Speci men Type: BLOOD SPECIMENOrdering Facility: [facility] Address: [address] [place] [address] Performed By: #### R IPTH ####[facility] LABORATORYCLIA [id number] [place] [id number] [place] [facility] INTRAOPERATIVE PTH 105 pg/mL High 15-65 [facility] Comment on above: Order Comment: Speci men Type: BLOOD SPECIMENOrdering Facility: [facility] Address: [place] [address] Performed By: #### R IPTH ####[facility] LABORATORYCLIA [id number] [address] OPERATIVE NOon 03-25-2023 OPERATIVE NO HNO ID: [id number] Author: Marge Hayes MD Service: Endocrine Surgery Author Type: Physician Type: Operative Report Filed: 03/25/2023 10:35 AM Note Text: NAME: Leonor Pal : 1940 DATE OF SURGERY/PROCEDURE: 03/25/23 INCISION/PROCEDURE START TIME: 08:11 INCISION CLOSE/PROCEDURE END TIME: Skin closure completed at 10:19 PREOPERATIVE DIAGNOSIS: Primary hyperparathyroidism POSTOPERATIVE DIAGNOSIS: Primary hyperparathyroidism SURGEON: Marge Hayes MD DIE REPAIR MACHINIST: 1.Marline Brito MD 2.JORDON Ross SURGERY/PROCEDURE: Parathyroidectomy [...] parathyroid cyst/gland was excised. This structure measured [id number] mm. Frozen section revealed a hypercellular gland. [...] sheet with patie (more content not included)... [facility] SURGICAL PATHOLOGYon 023 CASE REPORT [facility] Comment on above: Order Comment: Santii lynne Type: TISSUE SPECIMENOrdering Facility: [facility] Address: [address] [place] [address] Result Comment: Surg ica Pathology Report Case: [id number] Authorizing Provider: Marge Hayes MD Collected: 03/25/2023 09:12 AM Ordering Location: [facility] Received: 03/25/2023 09:24 AM Pathologist: Monico Olivas MD Intraop: Leeroy Hess MD Specimens: A) - PARATHYROID GLAND LEFT, Left upper totally excised,all submitted B) - PARATHYROID GLAND RIGHT, right upper parathyroid Performed By: #### S ####[facility] LABCLIA [id number] [address] [id number] [address] STATES OF [place] CLINICAL HISTORY [facility] Comment on above: Order Comment: Margarito batista Type: TISSUE SPECIMENOrdering Facility: [facility] Address: [address] [place] [address] Result Comment: 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 L eft upper parathyroid: - Hypercellular parathyroid tissue. - Benign thyroid tissue. B. Right upper parathyroid: - Focally hypercellular parathyroid tissue. Performed By: #### S ####[facility] LABCLIA [id number] [address] LABORATORYCLIA [id number] [address] FINAL PERFORMING LAB [facility] Comment on above: Order Comment: Speci men Type: TISSUE SPECIMENOrdering Facility: [facility] Address: [address] [place] [address] Result Comment: Diag nostic interpretation performed at [facility], [address] [address] CLIA# [id number] Shopper'S Aide: Henri Johnson M.D. Performed By: #### S ####[facility] LABCLIA [id number] [address] LABORATORYCLIA [id number] [address] GROSS DESCRIPTION [facility] Comment on above: Order Comment: Speci men Type: TISSUE SPECIMENOrdering Facility: [facility] Address: [address] [place] [address] Result Comment: A. P ARATHYROID GLAND LEFT Labeled: left upper parathyroid gland totally excised, all submitted Received: Fresh Size: 3.5 x 2.8 x 0.5 cm Weight: 2203 mg Cassette code: FSA1: serially sectioned; two inside account representative sections submitted Gross examination performed at [facility], [address] [place] [address] CLIA# [id number] B. PARATHYROID GLAND RIGHT Received in formalin, labeled right upper parathyroid, parathyroid gland right is a quarles tissue fragment, measuring 1.1 x 0.4 x 0.3 cm, and weighing 0.082 g. The specimen is entirely submitted in cassette B1. Gross examination performed at [facility], [address] [place] [address] Performed By: #### S ####[facility] LABCLIA [id number] [address] LABORATORYCLIA [id number] [address] [place] INTRAOPERATIVE DIAGNOSIS [facility] Comment on above: Order Comment: Speci men Type: TISSUE SPECIMENOrdering Facility: [facility] Address: [address] [place] [address] Result Comment: A. P ARATHYROID GLAND LEFT FSA1: Hypercellular parathyroid and thyroid tissue. (Dr. Hess) Intraoperative diagnosis performed at [facility], [address] [place] [address] CLIA# [id number] Performed By: #### S ####[facility] LABCLIA [id number] [address] LABORATORYCLIA [id number] [place] [address] [place] US THYROID/PARATHYROID (POC) ENDO USE ONLYon 03-25-2023 [facility] [place] PARATHYROID W SPECT/CTon 03-20-2023 NM PARATHYROID [...] sestamibi activity. No hypervascular parathyroid lesion identified. Rag Sorter: PSCB Transcribe Date/Time: Mar 20 2023 4:28P Dictated by : YANET VU MD This examination was interpreted and the report reviewed and electronically signed by: SAPPHIRE MCGINNIS MD on Mar 20 2023 11:00PM EST [id number] Normal [facility] CALCIUM 24 HR URINEon 2022 Calcium (24H U) [Mass/Time] 70.4 mg/24 hr Low 100.0 - 300.0 mg/24 hr [facility] Period 24 hr [facility] Specimen volume (24H U) 1.6 L C leveland [facility] CREATININE 24 HR URon 2022 Creatinine (24H [...] IMPRESSION: Severe degenerative changes of the fingers. Rag Sorter: PSCB Transcribe Date/Time: Nov 16 2022 5:24P Dictated by : GEETHA LI MD This examination was interpreted and the report reviewed and electronically signed by: GEETHA LI MD on Nov 16 2022 5:24PM [facility] DIVISION OF RADIOLOGY * * *Final Report* [...] no bony erosions. DIVISION OF RADIOLOGY Provider, [facility] - 11/16/2022 * * *Final Report* [...] IMPRESSION: Severe degenerative changes of the fingers. Rag Sorter: PSCB Transcribe Date/Time: Nov 16 2022 5:24P Dictated by : GEETHA LI MD This examination was interpreted and the report reviewed and electronically signed by: GEETHA LI MD on Nov 16 2022 5:24PM EST [facility] XR Hand - bilateral PA and L ateral and ObliqueOrdered By: Ccf Provider on 11-16-2022 [facility] XR Hand - bilateral PA and L ateral and Obliqueon 11-15-2022 Radiology Study observation (narrative) [facility] CT NECK SOFT TISSUE W IVCONo n 10-25-2022 Radiology Result ACTIONABLE Abnormal [facility] SURGICAL PATHOLOGYon 022 Case Report Surgical Pathology Report Case: [id number] Authorizing Provider: Chencho Urbina MD Collected: 09/20/2021 12:23 PM Ordering Location: [facility] Received: 09/20/2021 01:00 PM Pathologist: Dionicio Rowley MD Specimen: SKIN EXCISION [facility] Clinical History non-healing lesion suspecious for SCC [facility] Diagnosis Comment The peripheral azalia ns are negative for tumor. Continued clinical follow up is recommended. [facility] FINAL DIAGNOSIS A. 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 SDB/tg 09/21/2021 [facility] Gross Description A. SKIN EXCISION. Received in [...] remainder of tissue. Gross examination performed at [facility], [address] [place] [address] FFS 09/20/2021 11:36 PM [facility] Performing Lab Diagnostic interpretation performed at [facility], [facility] [id number] CLIA# [id number] Shopper'S Aide: Henri Johnson M.D. [facility] Vital Signs Date Time Vital Sign Value Performing Clinician Facility 10-07-2024 13:05-0400 Body height 157.5 cm Chencho Urbina MD Work Phone: [facility] 10-07-2024 13:05-0400 Body mass index (BMI) [Ratio] 25.79 kg/m2 Chencho Urbina MD Work Phone: [facility] 10-07-2024 13:05-0400 Body weight 63.96 kg Chencho Urbina MD Work Phone: [facility] 10-07-2024 13:05-0400 Diastolic blood pressure 84 mm[Hg] Chencho Urbina MD Work Phone: [facility] 10-07-2024 13:05-0400 Heart rate 69 /min Chencho Urbina MD Work Phone: [facility] 10-07-2024 13:05-0400 Respiratory rate 18 /min Chencho Urbina MD Work Phone: [facility] 10-07-2024 13:05-0400 Systolic blood pressure 132 mm[Hg] Chencho Urbina MD Work Phone: [facility] 09-24-2024 09:23-0400 Diastolic blood pressure 80 mm[Hg] Elisa Doherty APRN.RN TRANSITION Work Phone: [facility] 09-24-2024 09:23-0400 Systolic blood pressure 132 mm[Hg] Elisa Doherty APRN.RN TRANSITION Work Phone: [facility] 09-24-2024 09:12-0400 Body mass index (BMI) [Ratio] 24.39 kg/m2 Elisa Doherty APRN.RN TRANSITION Work Phone: [facility] 09-24-2024 09:12-0400 Body weight 64 kg Elisa Doherty APRN.RN TRANSITION Work Phone: [facility] 09-24-2024 09:12-0400 Heart rate 80 /min Elisa Doherty APRN.RN TRANSITION Work Phone: [facility] 09-02-2024 14:44-0400 Diastolic blood pressure 101 mm[Hg] Chencho Urbina MD Work Phone: [facility] 09-02-2024 14:44-0400 Heart rate 81 /min Chencho Urbina MD Work Phone: [facility] 09-02-2024 14:44-0400 Systolic blood pressure 169 mm[Hg] Chencho Urbina MD Work Phone: [facility] 09-02-2024 14:32-0400 Body mass index (BMI) [Ratio] 24.72 kg/m2 Chencho Urbina MD Work Phone: [facility] 09-02-2024 14:32-0400 Body weight 64.86 kg Chencho Urbina MD Work Phone: [facility] 09-02-2024 14:32-0400 Respiratory rate 18 /min Chencho Urbina MD Work Phone: [facility] 08-17-2024 12:54-0400 Body mass index (BMI) [Ratio] 24.89 kg/m2 Jean Jara TEAM LEADER/RESEARCH PSYCHOLOGIST.RN TRANSITION Work Phone: [facility] 08-17-2024 12:54-0400 Body weight 65.32 kg Jean Jara TEAM LEADER/RESEARCH PSYCHOLOGIST.RN TRANSITION Work Phone: [facility] 08-17-2024 12:54-0400 Diastolic blood pressure 90 mm[Hg] Jean Jara TEAM LEADER/RESEARCH PSYCHOLOGIST.RN TRANSITION Work Phone: [facility] 08-17-2024 12:54-0400 Heart rate 99 /min Jean Jara TEAM LEADER/RESEARCH PSYCHOLOGIST.RN TRANSITION Work Phone: [facility] 08-17-2024 12:54-0400 Respiratory rate 16 /min Jean Jara TEAM LEADER/RESEARCH PSYCHOLOGIST.RN TRANSITION Work Phone: [facility] 08-17-2024 12:54-0400 SaO2% (BldA) [Mass fraction] 97 % Jean Jara TEAM LEADER/RESEARCH PSYCHOLOGIST.RN TRANSITION Work Phone: [facility] 08-17-2024 12:54-0400 Systolic blood pressure 140 mm[Hg] Jean Jara APRN.RN TRANSITION Work Phone: [facility] 06-15-2024 13:13-0500 Diastolic blood pressure 92 mm[Hg] Cassandra Arshad PA-C Work Phone: [facility] Comment on above: bp average with machine 06-15-2024 13:13-0500 Heart rate 76 /min Cassandra Arshad PA-C Work Phone: [facility] 06-15-2024 13:13-0500 Systolic blood pressure 154 mm[Hg] Cassandra Arshad PA-C Work Phone: [facility] Comment on above: bp average with machine 06-15-2024 13:00-0500 Body mass index (BMI) [Ratio] 24.54 kg/m2 Cassandra Arshad PA-C Work Phone: [facility] 06-15-2024 13:00-0500 Body temperature 98.91 [degF] Cassandra Arshad PA-C Work Phone: [facility] 06-15-2024 13:00-0500 Body weight 64.41 kg Cassandra Arshad PA-C Work Phone: [facility] 06-15-2024 13:00-0500 Respiratory rate 16 /min Cassandra Arshad PA-C Work Phone: [facility] 06-15-2024 13:00-0500 SaO2% (BldA) [Mass fraction] 97 % Cassandra Arshad PA-C Work Phone: [facility] 06-08-2024 15:35-0500 Body mass index (BMI) [Ratio] 24.02 kg/m2 Elisa Doherty APRN.RN TRANSITION Work Phone: [facility] 06-08-2024 15:35-0500 Body temperature 99.1 [degF] Elisa Doherty APRN.RN TRANSITION Work Phone: [facility] 06-08-2024 15:35-0500 Body weight 63.05 kg Elisa Doherty APRN.RN TRANSITION Work Phone: [facility] 06-08-2024 15:35-0500 Diastolic blood pressure 89 mm[Hg] Elisa Doherty TEAM LEADER/RESEARCH PSYCHOLOGIST.RN TRANSITION Work Phone: [facility] 06-08-2024 15:35-0500 Heart rate 78 /min Elisa Doherty TEAM LEADER/RESEARCH PSYCHOLOGIST.RN TRANSITION Work Phone: [facility] 06-08-2024 15:35-0500 SaO2% (BldA) [Mass fraction] 98 % Elisa Doherty TEAM LEADER/RESEARCH PSYCHOLOGIST.RN TRANSITION Work Phone: [facility] 06-08-2024 15:35-0500 Systolic blood pressure 152 mm[Hg] Elisa Doherty TEAM LEADER/RESEARCH PSYCHOLOGIST.RN TRANSITION Work Phone: [facility] 05-04-2024 10:50-0500 Diastolic blood pressure 89 mm[Hg] Cassandra Arshad PA-C Work Phone: [facility] Comment on above: Samm BP average 05-04-2024 10:50-0500 Heart rate 71 /min Cassandra Arshad PA-C Work Phone: [facility] Comment on above: Samm BP Average 05-04-2024 10:50-0500 Systolic blood pressure 161 mm[Hg] Cassandra Arshad PA-C Work Phone: [facility] Comment on above: Samm BP average 05-04-2024 10:00-0500 Body mass index (BMI) [Ratio] 24.2 kg/m2 Cassandra Arshad PA-C Work Phone: [facility] 05-04-2024 10:00-0500 Body temperature 98.1 [degF] Cassandra Arshad PA-C Work Phone: [facility] 05-04-2024 10:00-0500 Body weight 63.5 kg Cassandra Arshad PA-C Work Phone: [facility] 05-04-2024 10:00-0500 Respiratory rate 16 /min Cassandra Arshad PA-C Work Phone: [facility] 04-29-2024 13:07-0500 Body mass index (BMI) [Ratio] 24.61 kg/m2 Dianne Podlogar TEAM LEADER/RESEARCH PSYCHOLOGIST.RN TRANSITION Work Phone: [facility] 04-29-2024 13:07-0500 Body temperature 98.29 [degF] Dianne Podlogar TEAM LEADER/RESEARCH PSYCHOLOGIST.RN TRANSITION Work Phone: [facility] 04-29-2024 13:07-0500 Body weight 64.6 kg Dianne Podlogar TEAM LEADER/RESEARCH PSYCHOLOGIST.RN TRANSITION Work Phone: [facility] 04-29-2024 13:07-0500 Diastolic blood pressure 88 mm[Hg] Dianne Podlogar TEAM LEADER/RESEARCH PSYCHOLOGIST.RN TRANSITION Work Phone: [facility] 04-29-2024 13:07-0500 Heart rate 80 /min Dianne Podlogar TEAM LEADER/RESEARCH PSYCHOLOGIST.RN TRANSITION Work Phone: [facility] 04-29-2024 13:07-0500 Respiratory rate 16 /min Dianne Podlogar TEAM LEADER/RESEARCH PSYCHOLOGIST.RN TRANSITION Work Phone: [facility] 04-29-2024 13:07-0500 SaO2% (BldA) [Mass fraction] 96 % Podlogar TEAM LEADER/RESEARCH PSYCHOLOGIST.RN TRANSITION Work Phone: [facility] 04-29-2024 13:07-0500 Systolic blood pressure 133 mm[Hg] Dianne Podlogar TEAM LEADER/RESEARCH PSYCHOLOGIST.RN TRANSITION Work Phone: [facility] 03-25-2024 12:35-0400 Body mass index (BMI) [Ratio] 24.89 kg/m2 Cassandra Arshad PA-C Work Phone: [facility] 03-25-2024 12:35-0400 Body temperature 98.6 [degF] Cassandra RUVALCABA-C Work Phone: [facility] 03-25-2024 12:35-0400 Body weight 65.32 kg Cassandra RUVALCABA-C Work Phone: [facility] 03-25-2024 12:35-0400 Diastolic blood pressure 80 mm[Hg] Cassandra RUVALCABA-C Work Phone: [facility] 03-25-2024 12:35-0400 Heart rate 90 /min Cassandra Arshad PA-C Work Phone: [facility] 03-25-2024 12:35-0400 Respiratory rate 16 /min Cassandra Arshad PA-C Work Phone: [facility] 03-25-2024 12:35-0400 SaO2% (BldA) [Mass fraction] 97 % Cassandra Arshad PA-C Work Phone: [facility] 03-25-2024 12:35-0400 Systolic blood pressure 124 mm[Hg] Cassandra Arshad PA-C Work Phone: [facility] 02-26-2024 17:13-0400 Body mass index (BMI) [Ratio] 25.58 kg/m2 Chencho Urbina MD Work Phone: [facility] 02-26-2024 17:13-0400 Body weight 67.13 kg Chencho Urbina MD Work Phone: [facility] 02-26-2024 17:13-0400 Diastolic blood pressure 70 mm[Hg] Chencho Urbnia MD Work Phone: [facility] 02-26-2024 17:13-0400 Heart rate 76 /min Chencho Urbina MD Work Phone: [facility] 02-26-2024 17:13-0400 Respiratory rate 16 /min Chencho Urbina MD Work Phone: [facility] 02-26-2024 17:13-0400 Systolic blood pressure 126 mm[Hg] Chencho Urbina MD Work Phone: [facility] 02-20-2024 08:54-0400 Diastolic blood pressure 48 mm[Hg] Chencho Urbina MD Work Phone: [facility] 02-20-2024 08:54-0400 Systolic blood pressure 76 mm[Hg] Chencho Urbina MD Work Phone: [facility] 02-20-2024 08:38-0400 Heart rate 77 /min Chencho Urbina MD Work Phone: [facility] 02-20-2024 08:38-0400 Respiratory rate 16 /min Chencho Urbina MD Work Phone: [facility] 02-20-2024 08:38-0400 SaO2% (BldA) [Mass fraction] 99 % Chencho Urbina MD Work Phone: [facility] 09-24-2023 10:19-0400 Body height 162 cm Cassandra Arshad PA-C Work Phone: [facility] 09-24-2023 10:19-0400 Body temperature 98.4 [degF] Cassandra Arshad PA-C Work Phone: [facility] 09-24-2023 10:19-0400 Body weight 68.49 kg Cassandra Arshad PA-C Work Phone: [facility] 09-24-2023 10:19-0400 Diastolic blood pressure 76 mm[Hg] Cassandra Arshad PA-C Work Phone: [facility] 09-24-2023 10:19-0400 Heart rate 68 /min Cassandra Arshad PA-C Work Phone: [facility] 09-24-2023 10:19-0400 Respiratory rate 18 /min Cassandra Arshad PA-C Work Phone: [facility] 09-24-2023 10:19-0400 SaO2% (BldA) [Mass fraction] 97 % Cassandra Arshad PA-C Work Phone: [facility] 09-24-2023 10:19-0400 Systolic blood pressure 118 mm[Hg] Cassandra Arshad PA-C Work Phone: [facility] 05-16-2023 08:24-0500 Body height 157.5 cm Kierra Alfaro MD Work Phone: [facility] 05-16-2023 08:240500 Body weight 67.4 kg Kierra Alfaro MD Work Phone: [facility] 05-16-2023 08:24-0500 Diastolic blood pressure 81 mm[Hg] Kierra Alfaro MD Work Phone: [facility] 05-16-2023 08:24-0500 Heart rate 64 /min Kierra Alfaro MD Work Phone: [facility] 05-16-2023 08:24-0500 Respiratory rate 16 /min Kierra Alfaro MD Work Phone: [facility] 05-16-2023 08:24-0500 SaO2% (BldA) [Mass fraction] 100 % Kierra Alfaro MD Work Phone: [facility] 05-16-2023 08:24-0500 Systolic blood pressure 125 mm[Hg] Kierra Alfaro MD Work Phone: [facility] 03-22-2023 10:43-0400 Body weight 66.22 kg Chencho Urbina MD Work Phone: [facility] 03-22-2023 10:43-0400 Diastolic blood pressure 76 mm[Hg] Chencho Urbina MD Work Phone: [facility] 03-22-2023 10:43-0400 Heart rate 60 /min Chencho Urbina MD Work Phone: [facility] 03-22-2023 10:43-0400 Respiratory rate 14 /min Chencho Urbina MD Work Phone: [facility] 03-22-2023 10:43-0400 Systolic blood pressure 120 mm[Hg] Chencho Urbina MD Work Phone: [facility] 02-20-2023 11:11-0400 Body height 160 cm Marge Hayes MD Work Phone: [facility] 02-20-2023 11:11-0400 Body weight 65.77 kg Marge Hayes MD Work Phone: [facility] 02-20-2023 11:11-0400 Diastolic blood pressure 77 mm[Hg] Marge Hayes MD Work Phone: [facility] 02-20-2023 11:11-0400 Heart rate 74 /min Marge Hayes MD Work Phone: [facility] 02-20-2023 11:11-0400 Systolic blood pressure 157 mm[Hg] Marge Hayes MD Work Phone: [facility] 11-23-2022 10:27-0400 Body temperature 98.2 [degF] Elisa Doherty TEAM LEADER/RESEARCH PSYCHOLOGIST.RN TRANSITION Work Phone: [facility] 11-23-2022 10:27-0400 Body weight 62.69 kg Elisa Doherty TEAM LEADER/RESEARCH PSYCHOLOGIST.RN TRANSITION Work Phone: [facility] 11-23-2022 10:27-0400 Diastolic blood pressure 68 mm[Hg] Elisa Doherty TEAM LEADER/RESEARCH PSYCHOLOGIST.RN TRANSITION Work Phone: [facility] 11-23-2022 10:27-0400 Heart rate 61 /min Elisa Doherty TEAM LEADER/RESEARCH PSYCHOLOGIST.RN TRANSITION Work Phone: [facility] 11-23-2022 10:27-0400 Respiratory rate 16 /min Elisa Doherty TEAM LEADER/RESEARCH PSYCHOLOGIST.RN TRANSITION Work Phone: [facility] 11-23-2022 10:27-0400 SaO2% (BldA) [Mass fraction] 98 % Elisa Doherty TEAM LEADER/RESEARCH PSYCHOLOGIST.RN TRANSITION Work Phone: [facility] 11-23-2022 10:27-0400 Systolic blood pressure 120 mm[Hg] Elisa Doherty TEAM LEADER/RESEARCH PSYCHOLOGIST.RN TRANSITION Work Phone: [facility] 11-13-2022 13:01-0400 Body height 160 cm Pablo Keyes MD Work Phone: [facility] 11-13-2022 13:01-0400 Body temperature 97.59 [degF] Pablo Keyes MD Work Phone: [facility] 11-13-2022 13:01-0400 Body weight 63.05 kg Pablo Keyes MD Work Phone: [facility] 11-13-2022 13:01-0400 Diastolic blood pressure 71 mm[Hg] Pablo Keyes MD Work Phone: [facility] 11-13-2022 13:01-0400 Heart rate 71 /min Pablo Keyes MD Work Phone: [facility] 11-13-2022 13:01-0400 Respiratory rate 14 /min Pablo Keyes MD Work Phone: [facility] 11-13-2022 13:01-0400 SaO2% (BldA) [Mass fraction] 99 % Pablo Keyes MD Work Phone: [facility] 11-13-2022 13:01-0400 Systolic blood pressure 131 mm[Hg] Pablo Keyes MD Work Phone: [facility] 09-28-2022 08:00-0400 Body height 160 cm Pulm Wstr Work Phone: [facility] 09-28-2022 08:00-0400 Body weight 63.5 kg Pulm Wstr Work Phone: [facility] 09-28-2022 08:00-0400 Heart rate 65 /min Pulm Wstr Work Phone: [facility] 09-28-2022 08:00-0400 Respiratory rate 12 /min Pulm Wstr Work Phone: [facility] 09-28-2022 08:00-0400 SaO2% (BldA) [Mass fraction] 97 % Pulm Wstr Work Phone: [facility] 09-20-2022 09:39-0400 Body height 160 cm Chencho Urbina MD Work Phone: [facility] 09-20-2022 09:39-0400 Body weight 63.05 kg Chencho Urbina MD Work Phone: [facility] 09-20-2022 09:39-0400 Diastolic blood pressure 84 mm[Hg] Chencho Urbina MD Work Phone: [facility] 09-20-2022 09:39-0400 Heart rate 70 /min Chencho Urbina MD Work Phone: [facility] 09-20-2022 09:39-0400 Respiratory rate 14 /min Chencho Urbina MD Work Phone: [facility] 09-20-2022 09:39-0400 Systolic blood pressure 132 mm[Hg] Chencho Urbina MD Work Phone: [facility] 07-25-2022 12:33-0500 Body weight 63.05 kg Cassandra Arshad PA-C Work Phone: [facility] 07-25-2022 12:33-0500 Diastolic blood pressure 68 mm[Hg] Cassandra Arshad PA-C Work Phone: [facility] 07-25-2022 12:33-0500 Heart rate 86 /min Cassandra Arshad PA-C Work Phone: [facility] 07-25-2022 12:33-0500 Respiratory rate 16 /min Cassandra Arshad PA-C Work Phone: [facility] 07-25-2022 12:33-0500 SaO2% (BldA) [Mass fraction] 100 % Cassandra Arshad PA-C Work Phone: [facility] 07-25-2022 12:33-0500 Systolic blood pressure 126 mm[Hg] Cassandra Arshad PA-C Work Phone: [facility] 06-27-2022 13:41-0500 Body weight 64.23 kg Cassandra Arshad PA-C Work Phone: [facility] 06-27-2022 13:41-0500 Diastolic blood pressure 78 mm[Hg] Cassandra Arshad PA-C Work Phone: [facility] 06-27-2022 13:41-0500 Heart rate 64 /min Cassandra Arshad PA-C Work Phone: [facility] 06-27-2022 13:41-0500 Respiratory rate 16 /min Cassandra Arshad PA-C Work Phone: [facility] 06-27-2022 13:41-0500 SaO2% (BldA) [Mass fraction] 96 % Cassandra Arshad PA-C Work Phone: [facility] 06-27-2022 13:41-0500 Systolic blood pressure 126 mm[Hg] Cassandra Arshad PA-C Work Phone: [facility] 03-15-2022 08:56-0400 Body temperature 97.5 [degF] Cassandrasierra Arshad PA-C Work Phone: [facility] 03-15-2022 08:56-0400 Body weight 66.68 kg Cassandrasierra Arshad PA-C Work Phone: [facility] 03-15-2022 08:56-0400 Diastolic blood pressure 70 mm[Hg] Cassandra Arshad PA-C Work Phone: [facility] 03-15-2022 08:56-0400 Heart rate 72 /min Cassandra Arshad PA-C Work Phone: [facility] 03-15-2022 08:56-0400 Respiratory rate 18 /min Cassandrasierra Arshad PA-C Work Phone: [facility] 03-15-2022 08:56-0400 Systolic blood pressure 110 mm[Hg] Cassandra Arshad PA-C Work Phone: [facility] 09-20-2021 11:31-0400 Body weight 66.68 kg Chencho Urbina MD Work Phone: [facility] 09-20-2021 11:31-0400 Diastolic blood pressure 76 mm[Hg] Chencho Urbina MD Work Phone: [facility] 09-20-2021 11:31-0400 Heart rate 72 /min Chencho Urbina MD Work Phone: [facility] 09-20-2021 11:31-0400 Systolic blood pressure 126 mm[Hg] Chencho Urbina MD Work Phone: [facility] 09-01-2021 08:56-0400 Body weight 65.77 kg Chencho Urbina MD Work Phone: [facility] 09-01-2021 08:56-0400 Diastolic blood pressure 64 mm[Hg] Chencho Urbina MD Work Phone: [facility] 09-01-2021 08:56-0400 Heart rate 66 /min Chencho Urbina MD Work Phone: [facility] 09-01-2021 08:56-0400 Respiratory rate 14 /min Chencho Urbina MD Work Phone: [facility] 09-01-2021 08:56-0400 Systolic blood pressure 130 mm[Hg] Chencho Urbina MD Work Phone: [facility] Encounters Encounter Date Encounter Type Care Provider Facility Start: 11-10-2024 End: 11-10-2024 Refill Chencho Urbina MD Work Phone: [facility] [place] Comment on above: Refill Request Start: 10-28-2024 End: 10-28-2024 ambulatory CHENCHO URBINA Facility:[facility] Start: 10-23-2024 End: 10-23-2024 Telephone encounter Cassandra Arshad PA-C Work Phone: [facility] Comment on above: Results Start: 10-22-2024 End: 10-22-2024 Chart abstracting Lana Schwartz MA [facility] Comment on above: Consult (Urology ) Start: 10-21-2024 End: 10-21-2024 Chart abstracting Chencho Urbina MD Work Phone: [facility] [place] Comment on above: Outside Start: 10-21-2024 End: 10-21-[address] Chencho Urbina MD Work Phone: [facility] Start: 10-21-2024 End: 10-21-2024 Departed Referred Chencho Urbina MD -[facility] Work Phone: Start: 10-21-2024 End: 10-21-2024 ambulatory Chencho MILLER Facility:[facility] Start: 10-16-2024 End: 10-16-2024 Telephone encounter Chencho Urbina MD Work Phone: [facility] [place] Start: 10-07-2024 End: 10-07-2024 Patient encounter procedure Chencho Urbina MD Work Phone: [facility] [place] Comment on above: Medicare annual [...] Start: 10-07-2024 End: 10-07-2024 ambulatory CHENCHO URBINA Facility:[facility] Start: 10-06-2024 End: 10-06-2024 [facility] CHENCHO URBINA Facility:[facility] Start: 09-30-2024 End: 09-30-2024 Telephone encounter Chencho Urbina MD Work Phone: [facility] [place] Comment on above: Results Start: 09-28-2024 End: 09-28-2024 Departed Referred Chencho Urbina MD -[facility] Work Phone: Start: 09-28-2024 End: 09-28-[address] [facility] Facility:[facility] Start: 09-24-2024 End: 09-24-2024 Patient encounter procedure Elisa Doherty APRN.CNP Work Phone: [facility] [place] Comment on above: Essential hypertensi on (Primary Dx); RLS (restless legs syndrome); Situational depression Start: 09-24-2024 End: 09-24-2024 ambulatory CHENCHO URBINA Facility:[facility] Start: 09-15-2024 End: 09-18-2024 Telephone encounter Chencho Urbina MD Work Phone: [facility] Comment on above: Forms Start: 09-09-2024 End: 11-09-2024 Follow-up encounter Ashutosh Banda MD Work Phone: [facility] Start: 09-02-2024 End: 09-02-2024 ambulatory CHENCHO URBINA Facility:[facility] Start: 09-02-2024 End: 09-02-2024 Subsequent hospital visit by physician Maria De Jesus [facility] Work Phone: Radiology Comment on above: Chronic pain of both knees [M25.561, M25.562, G89.29] Start: 09-02-2024 End: 09-02-2024 ambulatory CHENCHO URBINA Facility:[facility] Start: 09-02-2024 End: 09-02-2024 Patient encounter procedure Chencho Urbina MD Work Phone: [facility] Comment on above: Essential hypertensi on (Primary Dx); Dizziness; Carotid stenosis, asymptomatic, bilateral; Bilateral leg edema; Bilateral calf pain; Diminished pulses in lower extremity; RLS (restless legs syndrome); Chronic pain of both knees; Urgency of micturition; Dribbling of urine; Frequent UTI; Current mild episode of major depressive disorder without prior episode Start: 08-29-2024 End: 08-29-2024 ambulatory CHENCHO URBINA Facility:[facility] Start: 08-28-2024 End: 08-28-2024 Telephone encounter Chencho Urbina MD Work Phone: [facility] Comment on above: Patient Update; Appo intment Start: 08-19-2024 End: 08-20-2024 Follow-up encounter Jean Jara APRN.CNP Work Phone: [facility] [place] Start: 08-17-2024 End: 08-17-2024 ambulatory CHENCHO URBINA Facility:[facility] Start: 08-17-2024 End: 08-17-2024 Office outpatient visit 25 minutes Jean Jara APRN.RN TRANSITION Work Phone: [facility] Comment on above: UTI symptoms (Primar y Dx); Musculoskeletal disorder involving upper trapezius muscle; Tension headache Start: 07-30-2024 End: 07-30-2024 Follow-up encounter Cassandra Arshad PA-C Work Phone: [facility] [place] Start: 07-29-2024 End: 07-29-2024 [facility] Facility[facility] Start: 07-06-2024 End: 07-07-2024 Telephone encounter Cassandra Arshad PA-C Work Phone: [facility] [place] Comment on above: Results Start: 06-26-2024 End: 06-26-2024 Telephone encounter Cassandra Arshad PA-C Work Phone: [facility] [place] Comment on above: Results Start: 06-24-2024 End: 06-24-[address] [facility] Facility:[facility] Start: 06-24-2024 End: 06-24-2024 Subsequent hospital visit by physician [facility] Work Phone: Radiology Comment on above: Microscopic hematuri a [R31.29] Start: 06-18-2024 End: 06-18-2024 Telephone encounter Cassandra Arshad PA-C Work Phone: [facility] Start: 06-15-2024 End: 06-15-2024 [facility] Start: 06-15-2024 End: 06-15-2024 Office outpatient visit 25 minutes Cassandra Arshad PA-C Work Phone: [facility] [place] Comment on above: Essential hypertensi on (Primary Dx); Urinary frequency Start: 06-08-2024 End: 06-08-2024 Patient encounter procedure Elisa Doherty TEAM LEADER/RESEARCH PSYCHOLOGIST.RN TRANSITION Work Phone: [facility] [place] Comment on above: UTI symptoms (Primar y Dx); Bacterial sinusitis Start: 06-08-2024 End: 06-08-2024 [facility] Start: 05-12-2024 End: 05-12-2024 Telephone encounter Cassandra Arshad PA-C Work Phone: [facility] [place] Comment on above: Patient Update Start: 05-11-2024 End: 06-25-2024 Telephone encounter Libertad Mckeon MD Work Phone: Radiology Comment on above: Orders Start: 05-04-2024 End: 05-04-2024 Patient encounter procedure Cassandra Arshad PA-C Work Phone: [facility] [place] Comment on above: Sciatica of right si de (Primary Dx); Essential hypertension Start: 05-04-2024 End: 05-04-2024 ambulatory CHENCHO URBINA Facility:[facility] Start: 05-01-2024 End: 05-01-2024 Telephone encounter Dianne Podlogdiego TEAM LEADER/RESEARCH PSYCHOLOGIST.RN TRANSITION Work Phone: [facility] [place] Comment on above: Results Start: 04-29-2024 End: 04-29-2024 Telephone encounter Chencho Urbina MD Work Phone: [facility] [place] Comment on above: Patient Update Start: 04-29-2024 End: 04-29-2024 Patient encounter procedure Dianne Podlogdiego TEAM LEADER/RESEARCH PSYCHOLOGIST.RN TRANSITION Work Phone: [facility] [place] Comment on above: UTI symptoms (Primar y Dx) Start: 04-29-2024 End: 04-29-2024 ambulatory DIANNE PODLOGAR Facility:[facility] Start: 04-03-2024 End: 04-03-2024 Telephone encounter Chencho Urbina MD Work Phone: [facility] [place] Comment on above: Fax Request Start: 03-26-2024 End: 03-26-2024 Telephone encounter Cassandra Arshad PA-C Work Phone: [facility] [place] Comment on above: Results Start: 03-25-2024 End: 03-26-2024 Telephone encounter Chencho Urbina MD Work Phone: [facility] [place] Comment on above: Medication [...] Start: 03-25-2024 End: 03-25-2024 ambulatory CHENCHO URBINA Facility:[facility] Start: 03-17-2024 End: 03-17-2024 Telephone encounter Elisa Doherty APRN.CNP Work Phone: [facility] Comment on above: Results Start: 03-17-2024 End: 03-17-2024 Admission to same day surgery center Libertad Mckeon MD Work Phone: Endocrinology Comment on above: Primary hyperparathy roidism (HCC) (Primary Dx); History of parathyroid surgery; Age-related osteoporosis without current pathological fracture Start: 03-17-2024 End: 03-17-2024 Telemedicine consultation with patient Libertad Mckeon MD Work Phone: Endocrinology Start: 03-17-2024 End: 03-17-[address] [facility] Facility:[facility] Start: 03-16-2024 End: 03-16-2024 Home visit Chencho Urbina MD Work Phone: [facility] Comment on above: Fracture of pubic tu bercle, right, with routine healing, subsequent encounter (Primary Dx) Start: 03-16-2024 End: 03-16-2024 ambulatory CHENCHO URBINA Facility:[facility] Start: 03-16-2024 End: 03-16-2024 Patient encounter procedure Jonny Suero MD Work Phone: Orthopaedics Comment on above: Multiple closed frac tures of pelvis without disruption of pelvic ring, initial encounter (HCC) Start: 03-16-2024 End: 03-16-2024 ambulatory CHENCHO A CIARA Facility:[facility] Start: 03-16-2024 End: 03-16-2024 Subsequent hospital visit by physician Maria De Jesus [facility] [place] Work Phone: Radiology Comment on above: Multiple closed frac tures of pelvis without disruption of pelvic ring, initial encounter (HCC) [S32.82XA] Start: 03-11-2024 End: 03-11-2024 ambulatory Kaity Quintero RN Work Phone: [employer] Start: 03-11-2024 End: 03-11-2024 Telephone encounter Chencho Urbina MD Work Phone: [facility] [place] Comment on above: [facility], PT plan of c are Start: 03-11-2024 End: 03-11-2024 Telephone follow-up Kaity Quintero RN Work Phone: [employer] Comment on above: Transition Of Care ( [facility] Follow-up Day 24) Started Weekly phone contact (Recurring) for Transitional Care Management Start: 03-10-2024 End: 03-10-2024 Orders Only Jonny Suero MD Work Phone: Orthopaedics Comment on above: Multiple closed frac tures of pelvis without disruption of pelvic ring, initial encounter (HCC) (Primary Dx) Start: 03-04-2024 End: 03-04-2024 ambulatory Kaity Quintero RN Work Phone: [employer] Start: 03-04-2024 End: 03-04-2024 Telephone follow-up Kaiyt Quintero RN Work Phone: [employer] Comment on above: Transition Of Care ( [facility] Follow-up Day 17) Started Weekly phone contact (Recurring) for Transitional Care Management Start: 03-03-2024 End: 03-06-2024 Telephone encounter Elisa Doherty APRN.CNP Work Phone: [facility] [place] Comment on above: Results Start: 03-02-2024 End: 03-02-2024 ambulatory CHENCHO URBINA Facility:[facility] Start: 02-26-2024 End: 02-26-2024 ambulatory CHENCHO URBINA Facility:[facility] Start: 02-26-2024 End: 02-26-2024 Patient encounter procedure Chencho Urbina MD Work Phone: [facility] Comment on above: Essential hypertensi on (Primary Dx); Cough, unspecified type; Hyponatremia; Need for vaccination Start: 02-23-2024 End: 02-24-2024 Telephone encounter Chencho Urbina MD Work Phone: [facility] Comment on above: Results Start: 02-20-2024 End: 02-20-2024 Telephone encounter Chencho Urbina MD Work Phone: [facility] Comment on above: Medication Question Start: 02-20-2024 End: 02-20-2024 ambulatory CHENCHO URBINA Facility:[facility] Start: 02-20-2024 End: 02-20-2024 ambulatory CHENCHO A CIARA Facility:[facility] Start: 02-20-2024 End: 02-20-2024 Patient encounter procedure Chencho Urbina MD Work Phone: [facility] Comment on above: Hyponatremia (Primar y Dx); Idiopathic hypotension; Multiple closed fractures of pelvis without disruption of pelvic ring, initial encounter ([facility]) Start: 02-19-2024 End: 02-19-2024 Telephone encounter Chencho Urbina MD Work Phone: Internal Medicine [place] Start: 02-18-2024 End: 02-19-2024 Telephone encounter Chencho Urbina MD Work Phone: [facility] Comment on above: Medication Problem Start: 02-17-2024 End: 02-17-2024 ambulatory Kaity Quintero RN Work Phone: [employer] Start: 02-17-2024 End: 02-17-2024 Chart abstracting Lana Schwartz MA [facility] Comment on above: Hospital F/U ([facility] ) Transition Of Care ( [facility], Discharge 02/16/24) Initial phone contact for Transitional Care Management, Started Weekly phone contact (Recurring) for Transitional Care Management Start: 02-17-2024 End: 02-17-2024 Telephone encounter Chencho Urbina MD Work Phone: [facility] Comment on above: PT- [facility] HH- POC Start: 02-14-2024 End: 02-14-2024 Chart abstracting Lana Schwartz MA [facility] Comment on above: ER F/U ([facility] ) Start: 02-14-2024 End: 02-14-2024 Telephone encounter Chencho Urbina MD Work Phone: [facility] Start: 02-13-2024 ambulatory Chencho Urbina Facility :[facility] Start: 02-13-2024 End: 02-16-2024 Evaluation and management of inpatient Ayaka Cuba Facility:[facility] Start: 01-14-2024 Refill Chencho roy MD Work Phone: [facility] Comment on above: Refill Request Start: 01-06-2024 Refill Chencho roy MD Work Phone: [facility] Comment on above: Refill Request Start: 01-01-2024 Telephone encounter Chencho Urbina MD Work Phone: [facility] Comment on above: Results Start: 11-28-2023 End: [...] Telephone encounter Cassandra whitt PA-C Work Phone: [facility] Comment on above: labs pulled early Start: 11-15-2023 End: 11-15-2023 ambulatory CHENCHO URBINA Facility:[facility] Start: 11-15-2023 End: 11-15-2023 Subsequent hospital visit by physician [facility] ([facility]-Stat) Work Phone: Cat Scan Comment on above: 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] Start: 11-01-2023 Refill Chencho roy MD Work Phone: [facility] [place] Comment on above: Refill Request Start: 10-07-2023 Telephone encounter Chencho Urbina MD Work Phone: [facility] [place] Comment on above: Rectal Problem Start: 10-01-2023 End: 10-01-2023 Telemedicine consultation with patient Libertad Mckeon MD Work Phone: Endocrinology Start: 10-01-2023 End: 10-01-2023 ambulatory Libertad Mckeon MD Work Phone: Endocrinology Comment on above: Primary hyperparathy roidism (HCC) (Primary Dx); Age-related osteoporosis without current pathological fracture Start: 09-24-2023 End: 09-24-2023 Office outpatient visit 40 minutes Cassandra Arshad PA-C Work Phone: [facility] [place] Comment on above: Medicare annual well ness [...] encounter procedure Cassandra Arshad PA-C Work Phone: [facility] Work Phone: Start: 07-09-2023 End: 07-09-2023 ambulatory LIBERTAD MCKEON Facility:[facility] Start: 05-16-2023 End: 05-16-2023 Patient encounter procedure Kierra Alfaro MD Work Phone: NEUROLOGY Comment on above: Nonruptured cerebral aneurysm (Primary Dx) Start: 05-16-2023 End: 05-16-2023 ambulatory CHENCHO URBINA Facility:[facility] Start: 05-14-2023 End: 05-14-2023 ambulatory Libertad Mckeon MD Work Phone: Endocrinology Comment on above: Primary hyperparathy roidism (HCC) (Primary Dx); Age-related osteoporosis without current pathological fracture Start: 05-14-2023 End: 05-14-2023 Telemedicine consultation with patient Libertad Mckeon MD Work Phone: [place] [id number] Start: 05-08-2023 End: 05-08-2023 ambulatory [facility] Work Phone: [facility] [place] Start: 04-13-2023 End: 04-13-2023 ambulatory [facility] Work Phone: [facility] [place] Comment on above: Arrived Start: 04-10-2023 End: 04-10-2023 ambulatory Marge Hayes MD Work Phone: Endocrine Surgery Comment on above: Hyperparathyroidism (HCC) (Primary Dx) Start: 04-10-2023 End: 04-10-2023 Telemedicine consultation with patient Marge Hayes MD Work Phone: [facility] Start: 03-25-2023 End: 03-26-2023 ambulatory MARGE HAYES Facility:[facility] Start: 03-22-2023 End: 03-22-2023 Patient encounter procedure Chencho Urbina MD Work Phone: [facility] Comment on above: Essential hypertensi on (Primary Dx); Mixed hyperlipidemia; Elevated fasting blood sugar; GERD without esophagitis; Stage 3a chronic kidney disease (HCC); Carotid stenosis, asymptomatic, bilateral; Iron deficiency anemia, unspecified iron deficiency anemia type; Malignant neoplasm of colon, unspecified part of colon (HCC); Nonruptured cerebral aneurysm; Grief reaction; Hypomagnesemia; Thyroid nodule; Medication management Start: 03-20-2023 ambulatory UNKNOWN PROVIDER Facili :[facility] Start: 03-20-2023 ambulatory CHENCHO Gonzalez ty:[facility] Start: 03-07-2023 Orders Only Marge Hayes [...] End: 11-23-2022 Patient encounter procedure Elisa Doherty APRN.RN TRANSITION Work Phone: [facility] Comment on above: Unspecified deformit y of left finger(s) (Primary Dx) Start: 11-15-2022 End: 11-15-2022 Subsequent hospital visit by physician Xr [facility] [place] Work Phone: Radiology Comment on above: Swelling of left mid dle finger [M79.89] Start: 11-13-2022 End: 11-13-2022 Patient encounter procedure Pablo Keyes MD Work Phone: Endovascular Center Comment on above: Nonruptured cerebral aneurysm (Primary Dx); Hypertension, unspecified type Start: 10-25-2022 End: 10-25-2022 Subsequent hospital visit by physician [facility] (I-Stat) Work Phone: Cat Scan Comment on above: Neck mass [R22.1] Start: 10-22-2022 Telephone encounter Elisa alvarez APRN.RN TRANSITION Work Phone: [facility] [place] Comment on above: Results Start: 09-30-2022 Telephone encounter Chencho Urbina MD Work Phone: [facility] Comment on above: Results; Appointment Start: 09-28-2022 End: 09-28-2022 ambulatory Pulm Lab [facility] Work Phone: PULM LAB [facility] Comment on above: Spirometry Start: 09-28-2022 End: 09-28-2022 Patient encounter procedure Pulm Lab [facility] Work Phone: [facility] Start: 09-24-2022 Telephone encounter Chencho Urbina MD Work Phone: [facility] [place] Comment on above: Patient Question Start: 09-20-2022 End: 09-20-2022 Patient encounter procedure Chencho Urbina MD Work Phone: [facility] [place] Comment on above: Medicare annual [...] encounter Chencho Urbina MD Work Phone: [facility] [place] Comment on above: Results Start: 07-25-2022 End: 07-25-2022 Patient encounter procedure Cassandra Arshad PA-C Work Phone: [facility] [place] Comment on above: Situational stress [...] encounter procedure Cassandra Arshad PA-C Work Phone: [facility] [place] Comment on above: Essential hypertensi on (Primary Dx); Mixed hyperlipidemia; Stage 3 chronic kidney disease, unspecified whether stage 3a or 3b CKD (HCC); Elevated fasting blood sugar; Iron deficiency anemia, unspecified iron deficiency anemia type; Seasonal allergic rhinitis, unspecified trigger; Benign paroxysmal positional vertigo, unspecified laterality; Low blood magnesium; Encounter for immunization Start: 11-03-2021 Refill Chencho roy MD Work Phone: [facility] [place] Comment on above: Refill Request Start: 10-02-2021 End: 10-02-2021 Nursing evaluation of patient and report Mi Nurse Work Phone: [facility] [place] Comment on above: Squamous cell skin c ancer (Primary Dx) Start: 09-21-2021 Telephone encounter Chencho Urbina MD Work Phone: [facility] [place] Comment on above: Results Start: 09-20-2021 End: 09-20-2021 Patient encounter procedure Chencho Urbina MD Work Phone: [facility] [place] Comment on above: Neoplasm of uncertai n behavior of skin of neck (Primary Dx); Encounter for medication refill; Benign paroxysmal positional vertigo, unspecified laterality; Squamous cell skin cancer Start: 09-06-2021 Telephone encounter Chencho Urbina MD Work Phone: [facility] [place] Comment on above: Results Start: 09-01-2021 End: 09-01-2021 Patient encounter procedure Chencho Urbina MD Work Phone: [facility] [place] Comment on above: Medicare annual well [facility] visit, subsequent (Primary Dx); Essential hypertension; [...] Procedure Procedure Detail Performing Clinician Start: 10-07-2024 [facility] COVID-19 VACCINE AGE 12+ YR (COMIRNATY) Chencho Urbina MD Work Phone: Start: 09-28-2024 Urnls dip stick/tablet reagent auto microscopy Dr. Chencho Urbina MD Work Phone: Start: 09-28-[address] Chencho Alfonso Work Phone: Start: 08-17-2024 Urnls dip stick/tablet rgnt auto w/o microscopy Jean Jara TEAM LEADER/RESEARCH PSYCHOLOGIST.RN TRANSITION Work Phone: Start: 06-08-2024 Urnls dip stick/tablet rgnt auto w/o microscopy Elisa Doherty TEAM LEADER/RESEARCH PSYCHOLOGIST.RN TRANSITION Work Phone: Start: 04-29-2024 Urnls dip stick/tablet rgnt auto w/o microscopy Dianne Rueda TEAM LEADER/RESEARCH PSYCHOLOGIST.RN TRANSITION Work Phone: Start: 03-17-2024 H/O: surgery History [...] Author Start: 10-07-2027 Diabetes Screening Diabetes Screening [facility] Start: 08-30-2027 Diabetes Screening Diabetes Screening [facility] Start: 03-25-2027 Diabetes Screening Diabetes Screening [facility] Start: 03-16-2027 Diabetes Screening Diabetes Screening [facility] Start: 03-02-2027 Diabetes Screening Diabetes Screening [facility] Start: 02-19-2027 Diabetes Screening Diabetes Screening [facility] Start: 11-14-2026 Diabetes Screening Diabetes Screening [facility] Start: 08-18-2026 Diabetes Screening Diabetes Screening [facility] Start: 05-15-2026 Diabetes Screening Diabetes Screening [facility] Start: 03-22-2026 Diabetes Screening Diabetes Screening [facility] Start: 10-07-2025 Anxiety Screening Anxiety Screening [facility] Start: 09-05-2025 DIABETES SCREEN DIABETES SCREEN [facility] Start: 09-05-2025 Diabetes Screening Diabetes Screening [facility] Start: 08-29-2025 DIABETES SCREEN DIABETES SCREEN [facility] Start: 04-08-2025 End: 04-08-2025 Patient encounter procedure 04/08/2025 9:20 AM EDT Office Visit [facility] [place] [address] Cassandra Arshad PA-C [address] [facility] [place] [address] 6 month follow up Family Medicine [facility] Comment on above: 6 month follow up Start: 03-26-2025 End: 06-25-2025 Basic metabolic 2000 panel - Serum or Plasma BASIC METABOLIC PANEL Lab Routine Essential hypertension Mixed hyperlipidemia Stage 3b chronic kidney disease (HCC) Expected: 03/26/2025, Expires: 06/25/2025 [facility] Comment on above: Expected: 03/26/2025, Expires: Start: 03-26-2025 End: 06-25-2025 Hemoglobin A1c in Blood HEMOGLOBIN A1C Lab Routine Elevated fasting blood sugar Expected: 03/26/2025, Expires: 06/25/2025 [facility] Comment on above: Expected: 03/26/2025, Expires: Start: 03-26-2025 End: 06-25-2025 LIPID PANEL, NONFASTING LIPID PANEL, NONFASTING Lab Routine Essential hypertension Mixed hyperlipidemia Carotid stenosis, asymptomatic, bilateral Expected: 03/26/2025, Expires: 06/25/2025 [facility] Comment on above: Expected: 03/26/2025, Expires: Start: 03-26-2025 End: 06-25-2025 Magnesium [Mass/volume] in Serum or Plasma MAGNESIUM Lab Routine Hypomagnesemia Expected: 03/26/2025, Expires: 06/25/2025 [facility] Comment on above: Expected: 03/26/2025, Expires: Start: 03-22-2025 End: 03-22-2025 Patient encounter procedure 03/22/2025 9:30 AM EDT Appointment Radiology [address] [place] [id number] Primary hyperparathyroidism (HCC) [E21.0] Radiology Comment on above: Primary hyperparathyroidism (HCC) [E21.0 ] Start: 03-18-2025 Screening for osteoporosis Bone Density Screening [facility] Start: 03-01-2025 DIABETES SCREEN DIABETES SCREEN [facility] Start: 11-27-2024 End: 12-27-2024 CT Neck W contrast IV CTA NECK W IVCON Radiology Routine 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) Expected: 11/27/2024, Expires: 12/27/2024 [facility] Comment on above: Expected: 11/27/2024, Expires: Start: 11-27-2024 End: 12-27-2024 CTA Head Arteries W contrast IV CTA HEAD W IVCON Radiology Routine Nonruptured cerebral aneurysm Expected: 11/27/2024, Expires: 12/27/2024 [facility] Work Phone: Comment on above: Expected: 11/27/2024, Expires: Start: 10-28-2024 End: 10-28-2024 Patient encounter procedure Vasculary Surgery Comment on above: Bilateral calf pain [M79.661, M79.662]; Diminished pulses in lower extremity [R09.89] Start: 10-27-2024 End: 10-27-2024 Patient encounter procedure 10/27/2024 8:30 AM EDT Office Visit Urology [address] [place], [place] [id number] Mian Farrell PA-C [address] [place] [address] Urgency of micturition [R39.15]; Dribbling of urine [N39.43]; Frequent UTI [N39.0] Urology Comment on above: Urgency of micturition [R39.15]; Dribbli ng of urine [N39.43]; Frequent UTI [N39.0] Start: 10-21-2024 End: 01-20-2025 Sodium [Moles/volume] in Serum or Plasma SODIUM/NA Lab Routine Hyponatremia Expected: 10/21/2024, Expires: 01/20/2025 [facility] Work Phone: Comment on above: Expected: 10/21/2024, Expires: Start: 10-07-2024 End: 10-07-2024 Patient encounter procedure [facility] Comment on above: Medicare Wellness Start: 09-24-2024 End: 09-24-2024 Patient encounter procedure 09/24/2024 9:20 AM EDT Office Visit [facility] [address] [place] [address] Elisa Doherty APRN.RN TRANSITION [address] [place], [place] [id number] 3 week follow yup - HTN/Dizziness/Depression/L eg Pain [facility] Comment on above: 3 week follow yup - HTN/Dizziness/Depres kayleen/Leg Pain Start: 09-23-2024 End: 12-23-2024 CBC W Auto Differential panel - Blood COMPLETE BLOOD COUNT AND DIFFERENTIAL Lab Routine Iron deficiency anemia, unspecified iron deficiency anemia type Expected: 09/23/2024, Expires: 12/23/2024 [facility] Comment on above: Expected: 09/23/2024, Expires: Start: 09-23-2024 End: 12-23-2024 Cobalamin (Vitamin B12) [Mass/volume] in Serum or Plasma VITAMIN B12 Lab Routine Medication management Expected: 09/23/2024, Expires: 12/23/2024 [facility] Comment on above: Expected: 09/23/2024, Expires: Start: 09-23-2024 End: 12-23-2024 Comprehensive metabolic 2000 panel - Serum or Plasma COMPREHENSIVE METABOLIC PANEL Lab Routine Stage 3b chronic kidney disease (HCC) Elevated fasting blood sugar Expected: 09/23/2024, Expires: 12/23/2024 [facility] Comment on above: Expected: 09/23/2024, Expires: Start: 09-23-2024 End: 12-23-2024 Hemoglobin A1c in Blood HEMOGLOBIN A1C Lab Routine Elevated fasting blood sugar Expected: 09/23/2024, Expires: 12/23/2024 [facility] Comment on above: Expected: 09/23/2024, Expires: Start: 09-23-2024 End: 12-23-2024 Iron and Iron binding capacity panel - Serum or Plasma IRON AND TIBC Lab Routine Iron deficiency anemia, unspecified iron deficiency anemia type Expected: 09/23/2024, Expires: 12/23/2024 [facility] Comment on above: Expected: 09/23/2024, Expires: Start: 09-23-2024 End: 12-23-2024 LIPID PANEL, NONFASTING LIPID PANEL, NONFASTING Lab Routine Mixed hyperlipidemia Expected: 09/23/2024, Expires: 12/23/2024 [facility] Comment on above: Expected: 09/23/2024, Expires: Start: 09-23-2024 End: 12-23-2024 Magnesium [Mass/volume] in Serum or Plasma MAGNESIUM Lab Routine Medication management Expected: 09/23/2024, Expires: 12/23/2024 [facility] Comment on above: Expected: 09/23/2024, Expires: Start: 09-23-2024 End: 12-23-2024 Thyrotropin [Units/volume] in Serum or Plasma THYROID STIMULATING HORMONE Lab Routine Nontoxic multinodular goiter Medication management Expected: 09/23/2024, Expires: 12/23/2024 [facility] Comment on above: Expected: 09/23/2024, Expires: Start: 09-02-2024 End: 09-02-2024 Patient encounter procedure 09/02/2024 2:40 PM EDT Office Visit [facility] [address] [place] [address] Chencho Urbina MD [address] [place] [id number] Multiple UTIs over past several months, increasing depression, numbness espicially to R leg with sciatica. See TE 08/28/24. [facility] Comment on above: Multiple UTIs over past several months, increasing depression, numbness espicially to R leg with sciatica. See TE 08/28/24. Start: 08-28-2024 End: 11-27-2024 Bacteria identified in Urine by Culture BACTERIAL CULTURE, URINE Microbiology Routine Urgency of urination Expected: 08/28/2024, Expires: 11/27/2024 [facility] Comment on above: Expected: 08/28/2024, Expires: Start: 08-28-2024 End: 11-27-2024 Comprehensive metabolic 2000 panel - Serum or Plasma COMPREHENSIVE METABOLIC PANEL Lab Routine Stage 3b chronic kidney disease (HCC) Expected: 08/28/2024, Expires: 11/27/2024 [facility] Comment on above: Expected: 08/28/2024, Expires: Start: 08-28-2024 DIABETES SCREEN DIABETES SCREEN [facility] Start: 08-28-2024 End: 11-27-2024 Thyrotropin [Units/volume] in Serum or Plasma THYROID STIMULATING HORMONE Lab Routine Nontoxic multinodular goiter Expected: 08/28/2024, Expires: 11/27/2024 [facility] Comment on above: Expected: 08/28/2024, Expires: Start: 08-28-2024 End: 11-27-2024 Urinalysis complete panel - Urine URINALYSIS, WITH MICROSCOPIC Lab Routine Urgency of urination Expected: 08/28/2024, Expires: 11/27/2024 [facility] Work Phone: Comment on above: Expected: 08/28/2024, Expires: Start: 08-25-2024 Covid-19 Vaccine () Covid-19 Vaccine () [facility] Start: 07-27-2024 End: 10-26-2024 Urinalysis complete panel - Urine URINALYSIS, WITH MICROSCOPIC Lab Routine Microscopic hematuria Expected: 07/27/2024, Expires: 10/26/2024 [facility] Work Phone: Comment on above: Expected: 07/27/2024, Expires: Start: 06-24-2024 End: 06-24-2024 Patient encounter procedure 06/24/2024 9:15 AM EST Appointment Radiology [address] [place] [address] Microscopic hematuria [R31.29]; Urinary frequency [R35.0] Radiology Comment on above: Microscopic hematuria [R31.29]; Urinary frequency [R35.0] Start: 06-15-2024 End: 09-14-2024 Urinalysis complete panel - Urine URINALYSIS WITH MICROSCOPIC, REFLEX CULTURE Lab Routine Urinary frequency Expected: 06/15/2024, Expires: 09/14/2024 [facility] Work Phone: Comment on above: Expected: 06/15/2024, Expires: Start: 06-15-2024 End: 06-15-2024 Patient encounter procedure 06/15/2024 1:00 PM EST Office Visit [facility] [address] [place] [address] Cassandra Arshad PA-C [address] [facility] [place], [place] [id number] BP follow up Family Medicine [facility] Comment on above: BP follow up Start: 06-10-2024 Advance Directive Discussion Advance Directive Discussion [facility] Start: 05-25-2024 End: 05-25-2024 Patient encounter procedure 05/25/2024 1:05 PM EST Appointment Radiology [address] [place] [address] Primary hyperparathyroidism (HCC) [E21.0] Radiology Comment on above: Primary hyperparathyroidism (HCC) [E21.0 ] Start: 05-25-2024 End: 05-25-2024 Patient encounter procedure 05/25/2024 10:05 AM EST Appointment Radiology [address] [place] [address] Primary hyperparathyroidism (HCC) [E21.0] Radiology Comment on above: Primary hyperparathyroidism (HCC) [E21.0 ] Start: 05-04-2024 End: 05-04-2024 Patient encounter procedure 05/04/2024 10:00 AM EST Office Visit [facility] [place] [address] [facility] [place] [address] Cassandra Arshad PA-C [address] [facility] [place], [place] [address] Back and leg pain Family Medicine [facility] Comment on above: Back and leg pain Start: 03-25-2024 End: 06-24-2024 Basic metabolic 2000 panel - Serum or Plasma [facility] Work Phone: Comment on above: Expected: 03/25/2024, Expires: Start: 03-25-2024 End: 06-24-2024 CBC W Auto Differential panel - Blood [facility] Work Phone: Comment on above: Expected: 03/25/2024, Expires: Start: 03-25-2024 End: 06-24-2024 Hemoglobin A1c in Blood HEMOGLOBIN A1C Lab Routine Elevated fasting blood sugar Expected: 03/25/2024, Expires: 06/24/2024 [facility] Work Phone: Comment on above: Expected: 03/25/2024, Expires: Start: 03-25-2024 End: 06-24-2024 LIPID PANEL, NONFASTING LIPID PANEL, NONFASTING Lab Routine Mixed hyperlipidemia Expected: 03/25/2024, Expires: 06/24/2024 [facility] Work Phone: Comment on above: Expected: 03/25/2024, Expires: Start: 03-25-2024 End: 06-24-2024 Magnesium [Mass/volume] in Serum or Plasma MAGNESIUM Lab Routine Hypomagnesemia Expected: 03/25/2024, Expires: 06/24/2024 [facility] Work Phone: Comment on above: Expected: 03/25/2024, Expires: Start: 03-25-2024 End: 06-24-2024 Thyrotropin [Units/volume] in Serum or Plasma [facility] Comment on above: Expected: 03/25/2024, Expires: Start: 03-25-2024 End: 06-24-2024 Urinalysis complete panel - Urine [facility] Work Phone: Comment on above: Expected: 03/25/2024, Expires: Start: 03-25-2024 End: 03-25-2024 Patient encounter procedure Family Medicine [facility] Comment on above: 6 month FU 6 month FU,(itchy sk in shoulders to pelvic area, no rash) Start: 03-17-2024 End: 06-16-2024 Basic metabolic 2000 panel - Serum or Plasma [facility] Work Phone: Comment on above: Expected: 03/17/2024, Expires: Start: 03-17-2024 End: 03-17-2024 Follow-up encounter 03/17/2024 10:00 AM EDT [facility] Endocrinology [address] [place] [address] [place] [address] [place] [address] follow up- ref by Dr Hayes, f/u after parathyroidectomy Endocrinology Comment on above: follow up- ref by Dr Hayes f/nasir after p arathyroidectomy Start: 03-16-2024 End: 03-16-2024 Patient encounter procedure 03/16/2024 9:30 AM EDT Office Visit Orthopaedics [address] [place] [address] Jonny Suero MD [address] [place] [address] Multiple closed fractures of pelvis without disruption of pelvic ring, initial encounter (HCC) [S32.82XA] Orthopaedics Comment on above: Multiple closed fractures of pelvis with out disruption of pelvic ring, initial encounter (HCC) [S32.82XA] Start: 02-26-2024 End: 02-26-2024 Patient encounter procedure 02/26/2024 5:20 PM EDT Office Visit [facility] [address] [place] [address] Chencho Urbina MD [address] [place] [address] 1 week follow up Family [facility] Comment on above: 1 week follow up Start: 02-26-2024 End: 05-27-2024 Basic metabolic 2000 panel - Serum or Plasma BASIC METABOLIC PANEL Lab Routine Essential hypertension Hyponatremia Expected: 02/26/2024, Expires: 05/27/2024 [facility] Work Phone: Comment on above: Expected: 02/26/2024, Expires: Start: 02-20-2024 End: 02-20-2024 Patient encounter procedure 02/20/2024 8:00 AM EDT Office Visit Family Medicine [place] [address] [place], [place] [id number] Chencho Urbina MD [address] [place], [place] [phone] [facility] follow up 02/16/2024; FX Pelvis d/t Fall [facility] [place] Comment on above: [facility] follow up 02/16/2024; FX Pe lvis d/t Fall Start: 02-09-2024 Covid-19 Vaccine ( season) Covid-19 Vaccine () [facility] Start: 02-09-2024 Influenza vaccination Influenza Vaccine (#1) [facility] Start: 11-28-2023 End: 11-28-2023 Follow-up encounter 11/28/2023 11:40 AM EDT [facility] NEUROLOGY [address] [facility] [place] [address] Kierra Alfaro MD [address] [place] [address] follow up after CTA head/neck NEUROLOGY Comment on above: follow up after CTA head/neck Start: 11-26-2023 End: 11-26-2023 Follow-up encounter 11/26/2023 9:00 AM EDT [facility] Endocrinology [address] [address] [place] [address] [place] [address] FOLLOW UP AFTER VISIT ON 10/01/2023 PARATHYROIDECTOMY Endocrinology Comment on above: FOLLOW UP AFTER VISIT ON 10/01/2023 PARA THYROIDECTOMY Start: 11-15-2023 End: 06-14-2024 CTA HEAD W IVCON CTA HEAD W IVCON Radiology Routine Nonruptured cerebral aneurysm Expected: 11/15/2023, Expires: 06/14/2024 [facility] Work Phone: Comment on above: Expected: 11/15/2023, Expires: Start: 11-15-2023 End: 06-14-2024 CTA NECK W IVCON CTA NECK W IVCON Radiology Routine Nonruptured cerebral aneurysm Expected: 11/15/2023, Expires: 06/14/2024 [facility] Work Phone: Comment on above: Expected: 11/15/2023, Expires: Start: 11-15-2023 End: 11-15-2023 Patient encounter procedure 11/15/2023 9:00 AM EDT Appointment Cat Scan [address] [facility] [place] [place] [address] CTA head and Neck Cat Scan Comment on above: CTA head and Neck Start: 2023 End: 02-10-2024 25-hydroxyvitamin D3 [Mass/volume] in Serum or Plasma VITAMIN D 25 HYDROXY Lab Routine Primary hyperparathyroidism (HCC) Expected: 2023, Expires: 02/10/2024 [facility] Comment on above: Expected: 2023, Expires: 4 Start: 2023 End: 02-10-2024 Comprehensive metabolic 2000 panel - Serum or Plasma COMPREHENSIVE METABOLIC PANEL Lab Routine Primary hyperparathyroidism (HCC) Expected: 2023, Expires: 02/10/2024 [facility] Work Phone: Comment on above: Expected: 2023, Expires: Start: 2023 End: 02-10-2024 Parathyrin.intact [Mass/volume] in Serum or Plasma PTH INTACT Lab Routine Primary hyperparathyroidism (HCC) Expected: 2023, Expires: 02/10/2024 [facility] Comment on above: Expected: 2023, Expires: Start: 09-21-2023 SHINGRIX VACCINE (1 of 2) SHINGRIX VACCINE (1 of 2) [facility] Comment on above: Postponed from 11/10/1989 (Insurance Cov erage) Start: 09-21-2023 Urine microalbumin profile [facility] Comment on above: Postponed from 11/10/1958 (Insurance Cov erage) Start: 09-13-2023 End: 11-13-2023 CBC W Auto Differential panel - Blood CBC + DIFF Lab Routine Stage 3a chronic kidney disease (HCC) Iron deficiency anemia, unspecified iron deficiency anemia type Expected: 09/13/2023, Expires: 11/13/2023 [facility] Work Phone: Comment on above: Expected: 09/13/2023, Expires: Start: 09-13-2023 End: 11-13-2023 Cobalamin (Vitamin B12) [Mass/volume] in Serum or Plasma VITAMIN B12 BLOOD Lab Routine GERD without esophagitis Medication management Expected: 09/13/2023, Expires: 11/13/2023 [facility] Work Phone: Comment on above: Expected: 09/13/2023, Expires: Start: 09-13-2023 End: 11-13-2023 Comprehensive metabolic 2000 panel - Serum or Plasma COMP METABOLIC PANEL Lab Routine Essential hypertension Mixed hyperlipidemia Stage 3a chronic kidney disease (HCC) Expected: 09/13/2023, Expires: 11/13/2023 [facility] Work Phone: Comment on above: Expected: 09/13/2023, Expires: 4 Start: 09-13-2023 End: 11-13-2023 Hemoglobin A1c in Blood HGB A1C Lab Routine Elevated fasting blood sugar Expected: 09/13/2023, Expires: 11/13/2023 [facility] Work Phone: Comment on above: Expected: 09/13/2023, Expires: Start: 09-13-2023 End: 11-13-2023 Iron and Iron binding capacity panel - Serum or Plasma IRON + TIBC Lab Routine Iron deficiency anemia, unspecified iron deficiency anemia type Expected: 09/13/2023, Expires: 11/13/2023 [facility] Work Phone: Comment on above: Expected: 09/13/2023, Expires: Start: 09-13-2023 End: 11-13-2023 LIPID PANEL, NONFASTING LIPID PANEL, NONFASTING Lab Routine Essential hypertension Mixed hyperlipidemia Expected: 09/13/2023, Expires: 11/13/2023 [facility] Work Phone: Comment on above: Expected: 09/13/2023, Expires: Start: 09-13-2023 End: 11-13-2023 Magnesium [Mass/volume] in Serum or Plasma MAGNESIUM BLD Lab Routine Hypomagnesemia Expected: 09/13/2023, Expires: 11/13/2023 [facility] Work Phone: Comment on above: Expected: 09/13/2023, Expires: Start: 09-13-2023 End: 11-13-2023 Thyrotropin [Units/volume] in Serum or Plasma TSH BLD Lab Routine Thyroid nodule Expected: 09/13/2023, Expires: 11/13/2023 [facility] Work Phone: Comment on above: Expected: 09/13/2023, Expires: Start: 09-13-2023 End: 11-13-2023 Urinalysis complete panel - Urine URINALYSIS, WITH MICROSCOPIC Lab Routine Essential hypertension Mixed hyperlipidemia Stage 3a chronic kidney disease (HCC) Expected: 09/13/2023, Expires: 11/13/2023 [facility] Work Phone: Comment on above: Expected: 09/13/2023, Expires: Start: 09-06-2023 Covid-19 Vaccine () Covid-19 Vaccine () [facility] Start: 05-15-2023 End: 12-13-2023 Mra head w/o contrst material MRA BRAIN WO IVCON Radiology Routine Nonruptured cerebral aneurysm Expected: 05/15/2023 (Approximate), Expires: 12/13/2023 [facility] Work Phone: Comment on above: Expected: 05/15/2023 (Approximate), Expi res: 12/13/2023 Start: 05-14-2023 End: 08-13-2023 25-hydroxyvitamin D3 [Mass/volume] in Serum or Plasma VITAMIN D 25 HYDROXY Lab Routine Primary hyperparathyroidism (HCC) Expected: 05/14/2023, Expires: 08/13/2023 [facility] Work Phone: Comment on above: Expected: 05/14/2023, Expires: Start: 05-14-2023 End: 08-13-2023 Comprehensive metabolic 2000 panel - Serum or Plasma COMP METABOLIC PANEL Lab Routine Primary hyperparathyroidism (HCC) Expected: 05/14/2023, Expires: 08/13/2023 [facility] Work Phone: Comment on above: Expected: 05/14/2023, Expires: Start: 05-14-2023 End: 08-13-2023 Parathyrin.intact [Mass/volume] in Serum or Plasma PTH INTACT BLD Lab Routine Primary hyperparathyroidism (HCC) Expected: 05/14/2023, Expires: 08/13/2023 [facility] Work Phone: Comment on above: Expected: 05/14/2023, Expires: Start: 04-10-2023 End: 07-10-2023 Albumin [Mass/volume] in Serum or Plasma ALBUMIN BLD Lab Routine Hyperparathyroidism (HCC) Expected: 04/10/2023 (Approximate), Expires: 07/10/2023 [facility] Work Phone: Comment on above: Expected: 04/10/2023 (Approximate), Expi res: 07/10/2023 Start: 04-10-2023 End: 07-10-2023 Calcium [Mass/volume] in Serum or Plasma CALCIUM TOTAL BLD Lab Routine Hyperparathyroidism (HCC) Expected: 04/10/2023 (Approximate), Expires: 07/10/2023 [facility] Work Phone: Comment on above: Expected: 04/10/2023 (Approximate), Expi res: 07/10/2023 Start: 04-10-2023 End: 07-10-2023 CREATININE BLD CREATININE BLD Lab Routine Hyperparathyroidism (HCC) Expected: 04/10/2023, Expires: 07/10/2023 [facility] Work Phone: Comment on above: Expected: 04/10/2023, Expires: Start: 04-10-2023 End: 07-10-2023 Parathyrin.intact [Mass/volume] in Serum or Plasma PTH INTACT BLD Lab Routine Hyperparathyroidism (HCC) Expected: 04/10/2023 (Approximate), Expires: 07/10/2023 [facility] Work Phone: Comment on above: Expected: 04/10/2023 (Approximate), Expi res: 07/10/2023 Start: 04-10-2023 End: 07-10-2023 Phosphate [Mass/volume] in Serum or Plasma PHOSPHORUS INORGANIC Lab Routine Hyperparathyroidism (HCC) Expected: 04/10/2023 (Approximate), Expires: 07/10/2023 [facility] Work Phone: Comment on above: Expected: 04/10/2023 (Approximate), Expi res: 07/10/2023 Start: 03-08-2023 End: 05-08-2023 Basic metabolic 2000 panel - Serum or Plasma BASIC METABOLIC PNL Lab Routine Essential hypertension Mixed hyperlipidemia Elevated fasting blood sugar Stage 3a chronic kidney disease (HCC) Expected: 03/08/2023, Expires: 05/08/2023 [facility] Work Phone: Comment on above: Expected: 03/08/2023, Expires: Start: 03-08-2023 End: 05-08-2023 Hemoglobin A1c in Blood HGB A1C Lab Routine Elevated fasting blood sugar Expected: 03/08/2023, Expires: 05/08/2023 [facility] Work Phone: Comment on above: Expected: 03/08/2023, Expires: Start: 03-08-2023 End: 05-08-2023 LIPID PANEL, NONFASTING LIPID PANEL, NONFASTING Lab Routine Essential hypertension Mixed hyperlipidemia Expected: 03/08/2023, Expires: 05/08/2023 [facility] Work Phone: Comment on above: Expected: 03/08/2023, Expires: Start: 03-08-2023 End: 05-08-2023 Magnesium [Mass/volume] in Serum or Plasma MAGNESIUM BLD Lab Routine Low blood magnesium Expected: 03/08/2023, Expires: 05/08/2023 [facility] Work Phone: Comment on above: Expected: 03/08/2023, Expires: Start: 02-20-2023 End: 04-22-2023 25-hydroxyvitamin D3 [Mass/volume] in Serum or Plasma [facility] Work Phone: Comment on above: Expected: 02/20/2023 (Approximate), Expi res: 04/22/2023 Start: 02-20-2023 End: 04-22-2023 Albumin [Mass/volume] in Serum or Plasma [facility] Work Phone: Comment on above: Expected: 02/20/2023 (Approximate), Expi res: 04/22/2023 Start: 02-20-2023 End: 04-22-2023 Calcitriol [Mass/volume] in Serum or Plasma [facility] Work Phone: Comment on above: Expected: 02/20/2023 (Approximate), Expi res: 04/22/2023 Start: 02-20-2023 End: 04-22-2023 Calcium [Mass/volume] in Serum or Plasma [facility] Work Phone: Comment on above: Expected: 02/20/2023 (Approximate), Expi res: 04/22/2023 Start: 02-20-2023 End: 04-22-2023 CREATININE BLD [facility] Work Phone: Comment on above: Expected: 02/20/2023, Expires: 3 Start: 02-20-2023 End: 04-22-2023 Parathyrin.intact [Mass/volume] in Body fluid [facility] Work Phone: Comment on above: Expected: 02/20/2023, Expires: 3 Start: 02-20-2023 End: 04-22-2023 Phosphate [Mass/volume] in Serum or Plasma [facility] Work Phone: Comment on above: Expected: 02/20/2023 (Approximate), Expi res: 04/22/2023 Start: 02-08-2023 Covid-19 Vaccine () Covid-19 Vaccine () [facility] Start: 02-08-2023 Influenza vaccination [facility] Start: 10-25-2022 COVID-19 VACCINE (7 - Pfizer series) COVID-19 VACCINE (7 - Pfizer series) [facility] Start: 09-10-2022 End: 11-10-2022 CBC W Auto Differential panel - Blood CBC + DIFF Lab Routine Essential hypertension Expected: 09/10/2022, Expires: 11/10/2022 [facility] Work Phone: Comment on above: Expected: 09/10/2022, Expires: 3 Start: 09-10-2022 End: 11-10-2022 Comprehensive metabolic 2000 panel - Serum or Plasma COMP METABOLIC PANEL Lab Routine Essential hypertension Stage 3 chronic kidney disease, unspecified whether stage 3a or 3b CKD (HCC) Elevated fasting blood sugar Expected: 09/10/2022, Expires: 11/10/2022 [facility] Work Phone: Comment on above: Expected: 09/10/2022, Expires: 3 Start: 09-10-2022 End: 11-10-2022 Hemoglobin A1c in Blood HGB A1C Lab Routine Elevated fasting blood sugar Expected: 09/10/2022, Expires: 11/10/2022 [facility] Work Phone: Comment on above: Expected: 09/10/2022, Expires: 3 Start: 09-10-2022 End: 11-10-2022 LIPID PANEL, NONFASTING LIPID PANEL, NONFASTING Lab Routine Mixed hyperlipidemia Expected: 09/10/2022, Expires: 11/10/2022 [facility] Work Phone: Comment on above: Expected: 09/10/2022, Expires: Start: 09-10-2022 End: 11-10-2022 Magnesium [Mass/volume] in Serum or Plasma MAGNESIUM BLD Lab Routine Low blood magnesium Expected: 09/10/2022, Expires: 11/10/2022 [facility] Work Phone: Comment on above: Expected: 09/10/2022, Expires: Start: 09-10-2022 End: 11-10-2022 Urinalysis complete panel - Urine URINALYSIS, WITH MICROSCOPIC Lab Routine Essential hypertension Stage 3 chronic kidney disease, unspecified whether stage 3a or 3b CKD (HCC) Expected: 09/10/2022, Expires: 11/10/2022 [facility] Work Phone: Comment on above: Expected: 09/10/2022, Expires: 3 Start: 09-01-2022 SHINGRIX VACCINE (1 of 2) SHINGRIX VACCINE (1 of 2) [facility] Comment on above: Postponed from 11/10/1989 (Insurance Cov erage) Start: 09-01-2022 Urine microalbumin profile DTAP,TDAP,TD (1 - Tdap) [facility] Comment on above: Postponed from 11/10/1958 (Insurance Cov erage) Start: 08-30-2022 End: 10-30-2022 Basic metabolic 2000 panel - Serum or Plasma BASIC METABOLIC PNL Lab Routine Hyponatremia Hypercalcemia Expected: 08/30/2022, Expires: 10/30/2022 [facility] Work Phone: Comment on above: Expected: 08/30/2022, Expires: 3 Start: 08-30-2022 End: 10-30-2022 Parathyrin.intact [Mass/volume] in Serum or Plasma PTH INTACT BLD Lab Routine Hypercalcemia Expected: 08/30/2022, Expires: 10/30/2022 [facility] Work Phone: Comment on above: Expected: 08/30/2022, Expires: 3 Start: 06-10-2022 ADVANCE DIRECTIVE DISCUSSION ADVANCE DIRECTIVE DISCUSSION [facility] Start: 06-10-2022 DEPRESSION ASSESSMENT DEPRESSION ASSESSMENT [facility] Start: 02-23-2022 End: 04-25-2022 Basic metabolic 2000 panel - Serum or Plasma BASIC METABOLIC PNL Lab Routine Elevated fasting blood sugar Stage 3 chronic kidney disease, unspecified whether stage 3a or 3b CKD (HCC) Expected: 02/23/2022, Expires: 04/25/2022 [facility] Work Phone: Comment on above: Expected: 02/23/2022, Expires: 2 Start: 02-23-2022 End: 04-25-2022 Hemoglobin A1c/Hemoglobin.total in Blood HGB A1C Lab Routine Elevated fasting blood sugar Expected: 02/23/2022, Expires: 04/25/2022 [facility] Work Phone: Comment on above: Expected: 02/23/2022, Expires: 2 Start: 02-23-2022 End: 04-25-2022 LIPID PANEL, NONFASTING LIPID PANEL, NONFASTING Lab Routine Mixed hyperlipidemia Expected: 02/23/2022, Expires: 04/25/2022 [facility] Work Phone: Comment on above: Expected: 02/23/2022, Expires: 2 Start: 02-23-2022 End: 04-25-2022 Magnesium [Mass/volume] in Serum or Plasma MAGNESIUM BLD Lab Routine Low blood magnesium Expected: 02/23/2022, Expires: 04/25/2022 [facility] Work Phone: Comment on above: Expected: 02/23/2022, Expires: 2 Start: 11-10-2021 COVID-19 VACCINE (5 - Booster for Pfizer series) COVID-19 VACCINE (5 - Booster for Pfizer series) [facility] Start: 09-01-2021 End: 11-01-2021 POTASSIUM BLD POTASSIUM BLD Lab Routine Low serum potassium Expected: 09/01/2021, Expires: 11/01/2021 [facility] Work Phone: Comment on above: Expected: 09/01/2021, Expires: Start: 11-10-2014 RSV Vaccine (1 - 1-dose 75+ series) RSV Vaccine (1 - 1-dose 75+ series) [facility] Start: 1999 RSV Vaccine (1 - 1-dose 60+ series) RSV Vaccine (1 - 1-dose 60+ series) [facility] Start: 11-10-1989 Shingrix Vaccine (1 of 2) Shingrix Vaccine (1 of 2) [facility] Start: 11-10-1958 Urine microalbumin profile DTaP,Tdap,Td Vaccine (1 - Tdap) [facility] Start: 11-10-1957 Anxiety Screening Anxiety Screening [facility] Start: [birth year]10-1946 PNEUMOCOCCAL: 65+ (1 - PCV) PNEUMOCOCCAL: 65+ (1 - PCV) [facility] Bacteria identified in Urine by Culture URINE CULTURE Microbiology Routine UTI symptoms 04/29/2024 3:44 PM EST [facility] Work Phone: Bacteria identified in Urine by Culture BACTERIAL CULTURE, URINE Microbiology Routine UTI symptoms 08/17/2024 1:36 PM EDT [facility] Work Phone: 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 CYTOLOGY NON-GY N Lab Routine Hyperparathyroidism (HCC) 02/20/2023 12:31 PM EDT [facility] Work Phone: End: 10-20-2023 SPIROMETRY - BASELINE AND POST DILATOR SPIROMETRY - BASELINE AND POST DILATOR PFT Routine SOB (shortness of breath) Second hand smoke exposure 1 Occurrences starting 09/20/2022 until 10/20/2023 [facility] Work Phone: Comment on above: 1 Occurrences starting 09/20/2022 until 10/20/2023 SPIROMETRY - BASELIN E AND POST DILATOR SPIROMETRY - BASELINE AND POST DILATOR PFT Routine SOB (shortness of breath) Second hand smoke exposure 09/28/2022 8:02 AM EDT [facility] Work Phone: End: 09-02-2025 US Carotid arteries - bilateral US CAROTID ARTERIES [facility] Vascular Lab Routine Dizziness Carotid stenosis, asymptomatic, bilateral 1 Occurrences starting 09/02/2024 until 09/02/2025 [facility] Work Phone: Comment on above: 1 Occurrences starting 09/02/2024 until 09/02/2025 End: 09-21-2023 US CAROTID ARTERIES [facility] US CAROTID ARTERIES [facility] Vascular Lab Routine Carotid stenosis, asymptomatic, bilateral 1 Occurrences starting 09/20/2022 until 09/21/2023 [facility] Work Phone: Comment on above: 1 Occurrences starting 09/20/2022 until 09/21/2023 End: 07-18-2025 US Kidney - bilateral and Urinary bladder US KIDNEY/BLADDER Radiology Routine Microscopic hematuria Urinary frequency 1 Occurrences starting 06/18/2024 until 07/18/2025 [facility] Work Phone: Comment on above: 1 Occurrences starting 06/18/2024 until 07/18/2025 US Kidney - bilatera l and Urinary bladder US KIDNEY/BLADDER Radiology Routine Microscopic hematuria Urinary frequency 06/24/2024 9:25 AM EST [facility] Work Phone: End: 09-02-2025 US Lower extremity artery - bilateral PVR LEG [facility] Vascular Lab Routine Bilateral calf pain Diminished pulses in lower extremity 1 Occurrences starting 09/02/2024 until 09/02/2025 [facility] Comment on above: 1 Occurrences starting 09/02/2024 until 09/02/2025 End: 09-02-2025 US Lower extremity veins - bilateral US LEG VEIN DVT [facility] Vascular Lab Routine Bilateral leg edema Bilateral calf pain 1 Occurrences starting 09/02/2024 until 09/02/2025 [facility] Comment on above: 1 Occurrences starting 09/02/2024 until 09/02/2025 End: 10-30-2023 Us soft tissue head & neck real time imge docm US THYROID/PARATHYROID Radiology Routine Thyroid nodule 1 Occurrences starting 09/30/2022 until 10/30/2023 [facility] Work Phone: Comment on above: 1 Occurrences starting 09/30/2022 until 10/30/2023 XR Knee - bilateral 4 Views XR KNEE GENERAL 4V AP BOTH/PA BOTH/LAT/MERC BILATERAL Radiology Routine Chronic pain of both knees 09/02/2024 4:40 PM EDT [facility] Work Phone: End: 10-02-2025 XR Knee - bilateral 4 Views XR KNEE GENERAL 4V AP BOTH/PA BOTH/LAT/MERC BILATERAL Radiology Routine Chronic pain of both knees 1 Occurrences starting 09/02/2024 until 10/02/2025 [facility] Comment on above: 1 Occurrences starting 09/02/2024 until 10/02/2025 End: 04-09-2025 XR Pelvis Inlet and Outlet XR PELVIS 2V INLET/OUTLET Radiology Routine Multiple closed fractures of pelvis without disruption of pelvic ring, initial encounter (HCC) 1 Occurrences starting 03/10/2024 until 04/09/2025 [facility] Work Phone: Comment on above: 1 Occurrences starting 03/10/2024 until 04/09/2025 XR Pelvis Inlet and Outlet XR PE LVIS 2V INLET/OUTLET Radiology Routine Multiple closed fractures of pelvis without disruption of pelvic ring, initial encounter ([facility]) 03/16/2024 8:55 AM EDT [facility] Work Phone: [facility] OR [facility] Immunizations Immunization Date Immunization Notes Care Provider Fa denys 10-07-2024 pneumococcal Conjuga te, unspecified formulation Chencho Urbina MD Work Phone: [facility] 10-07-2024 COVID-19 vaccine, ag e 12+ yr (MyPrepApp-Spare to Share [facility]) Chencho Urbina MD Work Phone: [facility] 10-07-2024 pneumococcal conjuga te (PCV20) vaccine, 20 valent (PREVNAR 20) Chencho Urbina MD Work Phone: [facility] 03-25-2024 influenza, high dose seasonal, preservative-free Cassandra Arshad PA-C Work Phone: [facility] 02-26-2024 COVID-19 vaccine, ag e 12+ yr (PFIZER-BIONTECH) Chencho Urbina MD Work Phone: [facility] 05-08-2023 COVID-19 vaccine, ag e 12+ yr, season (PFIZER-BIONTECH) Immunization [place] Work Phone: [facility] Work Phone: 04-13-2023 influenza (HD-IIV4) vaccine, age 65+ yr, high dose, quadrivalent, PF (FLUZONE HIGH-DOSE) Immunization [place] Work Phone: [facility] 04-13-2023 influenza virus vaccine, unspecified formulation Kierra Alfaro MD Work Phone: [facility] 06-27-2022 COVID-19 booster vaccine, age 12+ yr, bivalent (PFIZER-BIONTECH) Cassandra Arshad PA-C Work Phone: [facility] 03-15-2022 influenza, high-dose , quadrivalent vaccine (FLUZONE HIGH DOSE QUADRIVALENT) Cassandra Arshad PA-C Work Phone: [facility] 03-15-2022 influenza virus vaccine, unspecified formulation Marge Hayes MD Work Phone: [facility] 09-15-2021 COVID-19 original vaccine, age 12+ yr, monovalent (PFIZER-BIONTECH - MENDEZ TOP) Cassandra Arshad PA-C Work Phone: [facility] 09-15-2021 COVID-19 vaccine, ag e 12+ yr (PFIZER-BIONTECH - PURPLE TOP) Chencho Urbina MD Work Phone: [facility] 03-29-2021 influenza, high dose seasonal, preservative-free Chencho Urbina MD Work Phone: [facility] 03-20-2021 COVID-19 vaccine, ag e 12+ yr (PFIZER-BIONTECH - PURPLE TOP) Chencho Urbina MD Work Phone: [facility] 07-29-2020 COVID-19 vaccine, ag e 12+ yr (PFIZER-BIONTECH - PURPLE TOP) Chencho Urbina MD Work Phone: [facility] 07-11-2020 COVID-19 vaccine, ag e 12+ yr (PFIZER-BIONTECH - PURPLE TOP) Chencho Urbina MD Work Phone: [facility] 02-16-2019 influenza, high dose seasonal, preservative-free Chencho Urbina MD Work Phone: [facility] 02-17-2018 influenza, high dose seasonal, preservative-free Chencho Urbina MD Work Phone: [facility] 01-14-2018 pneumococcal polysaccharide vaccine, 23 valent Chencho Urbina MD Work Phone: [facility] 02-26-2017 influenza, injectabl e, quadrivalent, preservative free Dr. Chencho Urbina MD Work Phone: [facility] 03-07-2016 influenza, injectabl e, quadrivalent, contains preservative Chencho Urbina MD Work Phone: [facility] Work Phone: 03-10-2015 influenza, high dose seasonal, preservative-free Chencho Urbina MD Work Phone: [facility] 06-16-2014 pneumococcal conjuga te vaccine, 13 valent Chencho Urbina MD Work Phone: [facility] 04-08-2014 influenza, seasonal, injectable Chencho Urbina MD Work Phone: [facility] 04-07-2013 influenza virus vaccine, unspecified formulation Chencho Urbina MD Work Phone: [facility] 04-23-2012 influenza virus vaccine, unspecified formulation Chencho Urbina MD Work Phone: [facility] 03-09-2011 influenza virus vaccine, unspecified formulation Chencho Urbina MD Work Phone: [facility] 03-14-2010 influenza virus vaccine, unspecified formulation Chencho Urbina MD Work Phone: [facility] Work Phone: 02-24-2010 pneumococcal polysaccharide vaccine, 23 valent Chencho Urbina MD Work Phone: [facility] Work Phone: Payers Date Payer Category Payer Self-pay 2019 Private Health Insurance MMO MED ICARE SUPPLEMENT [id number] 2019 Unknown MMO MMO MEDICARE SUPPLEMENT [id number] 2019-Present [phone] [address] [place] [address] Indemnity [id number] 2019 Unknown MMO MMO MEDICARE SUPPLEMENT [id number] 2019-Present [phone] [address] [place] [address] Indemnity [id number] 2015 Medicare [id number] 2004 Medicare MEDICARE MEDICAR E A AND B [id number] 2004-Present [phone] [address] [address] [place] [address] Medicare [id number] 2004 Medicare [id number] 2004 Medicare [id number] Unknown [id number] Unknown [id number] Unknown [id number] Unknown [id number] Unknown [id number] Unknown [id number] Unknown [id number] Social History Date Type Detail Facility Start: 12-18-2010 End: 02-13-2024 Tobacco smoking status NCIS Never smoked tobacco [facility] Work Phone: Start: 09-01-2021 End: 10-07-2024 Alcohol intake Current non-drinker of alcohol (finding) [facility] Start: 1940 Sex Assigned At Not on file C [facility] Start: 09-10-2021 End: 03-15-2022 Exposure to SARS-CoV-2 (event) Not sure [facility] Start: 12-18-2010 Tobacco use and exposure Smokeless tobacco non-user [facility] Work Phone: Start: 12-17-2022 End: 10-07-2024 History of Social function [facility] Work Phone: Start: 12-17-2022 End: 10-07-2024 Tobacco use panel [facility] Work Phone: Adult Depression Screening Assessment 1 [facility] Work Phone: (I/We) worried ieshacorin er (my/our) food would run out before (I/we) got money to buy more. Never true [facility] Work Phone: How often to you hav e a drink containing alcohol? Never [facility] Start: 01-31-[address] [facility] Start: 01-31-[address] [facility] Start: 04-30-[address] [facility] Start: 1940 Sex Assigned At Female [facility] Functional Status Date Assessment Result Facility 10-07-2024 Total score [AUDIT-C] 0 10/08/19 12:54 PM Lana Marcano MA [facility] 03-26-2023 Are you deaf, or do you have serious difficulty hearing No 03/26/2023 7:49 AM More Delacruz RN [facility] 03-26-2023 Are you blind, or do you have serious difficulty seeing, even when wearing glasses No 03/26/2023 7:49 AM More Delacruz, MILLICENT [facility] 03-26-2023 Do you have serious difficulty walking or climbing stairs No 03/26/2023 7:49 AM More Delacruz, MILLICENT [facility] 03-26-2023 Do you have difficul ty dressing or bathing No 03/26/2023 7:49 AM More Delacruz, MILLICENT [facility] 03-26-2023 Because of a physica l, mental, or emotional condition, do you have difficulty doing errands alone such as visiting a physician's office or shopping No 03/26/2023 7:49 AM More Delacruz, MILLICENT [facility] Mental Status Date Assessment Result Facility 03-26-2023 Because of a physica l, mental, or emotional condition, do you have serious difficulty concentrating, remembering, or making decisions No 03/26/2023 7:49 AM More Delacruz, MILLICENT No [facility] Clinical Notes 09-01-2021 to 11-10-2024 Telephone Encounter [...] Merlyn Baptiste November 10, 2024 9:43 AM [facility] 11-10-2024 Miscellaneous Notes Prescription Refill Information The [...] 2024 9:43 AM documented in this encounter [facility] 10-23-2024 Telephone encounter Note Pt's daughter Barbie notified of same. Venita Green LPN [facility] 10-23-2024 Miscellaneous Notes Pt's daughter Barbie notified of same. Venita Green LPN Repeat sodium back in normal range. Please let patient/family know. Thanks. Cassandra Arshad PA-C documented in this encounter [facility] 10-23-2024 Telephone encounter Note Repeat sodium back in normal range. Please let patient/family know. Thanks. Cassandra Arshad PA-C [facility] 10-22-2024 Note HNO ID: [id number] Author: LANA SCHWARTZ MA Service: ? Author Type: Senior Network Administrator Type: Progress Notes Filed: 10/22/2024 14:16 Note Text: Scan on 10/21/2024 11:44 AM by Tao Lyons PA-C: Consultation - Lana Schwartz MA [facility] 10-22-2024 History of Present illness Narrative Scan on 10/21/2024 11:44 AM by Tao Lyons PA-C: Consultation - Lana Schwartz MA documented in this encounter [facility] 10-21-2024 Note HNO ID: [id number] Author: VENITA GREEN LPN Service: ? Author Type: LICENSED NURSE Type: Progress Notes Filed: 10/21/2024 12:43 Note Text: Scan on 10/21/2024 11:44 AM by Tao Lyons PA-C: Consultation - [facility] 10-21-2024 History of Present illness Narrative Scan on 10/21/2024 11:44 AM by Provider, Tao, ASTER: Consultation - documented in this encounter [facility] 10-16-[address] Eisenberg's office is requesting office notes and any labs, etc. All info has been faxed to her office. Venita Green LPN [facility] 10-16-[address] Eisenberg's office is requesting office notes and any labs, etc. All info has been faxed to her office. Venita Green LPN documented in this encounter [facility] 10-07-2024 Instructions Chencho Urbina MD - 10/07/2024 1:23 PM EDT Please take a handful of potato chips or pretzels once a day. Consider getting the shingrix vaccine for the prevention of shingles from a local pharmacy and the Tdap. Consider getting the RSV vaccine in Feb 2025. Sodium needs repeat at [facility] on 10/21/2024. Please get labs and urine test done on or after 03/26/2025 prior to your next visit at [facility] Please take Screening schedule The following [...] review all the medicines you take, even pxcm-abv-dzzarfm medicines. As you get older, the way [...] certain medical conditions. documented in this encounter [facility] 10-07-2024 History of Present illness Narrative Images [...] brisk walk)?: 7 days (exercising class at [place]) Alcohol: Daily Use Never Alcohol: Drinks/Day Patient [...] Referring (Family Medicine) Elisa Doherty APRN.CNP as Visual Stylist (Family Medicine) Cassandra Arshad PA-C as Visual Stylist (Family Medicine) Dr. Mckeon: Endo. Neuro Surgery [...] as below. Patient is currently living in [facility]. Is happy with this move and [...] 65%, with mild diast dysf and 1+ UT. CARDIAC STRESS TEST 05/01/2017 negative CHOLECYSTECTOMY 1985 [...] (CENTRUM SILVER WOMEN ORAL) Take by mouth. jeocoxa-nmbctpbvr-jghflxn D3 500 mg-5 mcg (200 unit) per [...] Lymph 1.00 - 4.00 k/uL 1.41 2.41 [place]% % 10.0 12.1 Abs [place] <0.87 k/uL 1.07 (H) 1.08 (H) Eosin% [...] which included preparing to see the patient, yddn-kc-bdau patient care, completing clinical documentation, performing a medically appropriate examination, counseling and educating the patient/family/caregiver and ordering medications, tests, or procedures. Chencho Urbina MD documented in this encounter [facility] 10-07-2024 Note [facility] 09-30-2024 Telephone encounter Note The following approved medication requests have been transmitted electronically. Requested Prescriptions Signed Prescriptions Disp Refills nitrofurantoin monohydrate and macrocrystal (MACROBID) 100 mg capsule 14 capsule 0 Sig: Take 1 capsule by mouth two times a day with meals for 7 days. Authorizing Provider: CHENCHO URBINA MD [facility] 09-30-2024 Miscellaneous Notes The following approved medication requests have been transmitted electronically. Requested Prescriptions Signed Prescriptions Disp Refills nitrofurantoin monohydrate and macrocrystal (MACROBID) 100 mg capsule 14 capsule 0 Sig: Take 1 capsule by mouth two times a day with meals for 7 days. Authorizing Provider: CHENCHO URBINA MD Spoke nurse and they indicate to send to her local pharmacy and they will hot die picker for her. [facility] is listed. We also received in the culture. She indicated as of today patient still feels like she has a UTI. Lana Schwartz MA Contact [facility] [phone] and find out where they want me to send an antibiotic to for Katherin's UTI. I can send in an antibiotic now and when the culture gets back if no sensitive change it. documented in this encounter [facility] 09-30-2024 Telephone encounter Note Spoke nurse and they indicate to send to her local pharmacy and they will hot die picker for her. [facility] is listed. We also received in the culture. She indicated as of today patient still feels like she has a UTI. Lana Schwartz MA [facility] 09-30-2024 Telephone encounter Note Contact [facility] [phone] and find out where they want me to send an antibiotic to for Katherin's UTI. I can send in an antibiotic now and when the culture gets back if no sensitive change it. [facility] 09-24-2024 Instructions Elisa Doherty APRN.MARIAH - 09/24/2024 9:32 AM EDT Cancel appointment with Bud, Lester with Dr. Eisenberg at [facility]. documented in this encounter [facility] 09-24-2024 Note [facility] 09-24-2024 History of Present illness Narrative Chief [...] and BP. Patient reports she moved into [facility] last night so the last couple of [...] 65%, with mild diast dysf and 1+ UT. CARDIAC STRESS TEST 05/01/2017 negative CHOLECYSTECTOMY 1985 [...] (CENTRUM SILVER WOMEN ORAL) Take by mouth. tpvxfgo-ilgrttubh-ewooyio D3 500 mg-5 mcg (200 unit) per [...] prozac, re-eval effectiveness with Dr. Ciara Doherty APRN.RN TRANSITION documented in this encounter [facility] 09-18-2024 Telephone encounter Note Forms signed and faxed. Lana Schwartz MA [facility] 09-18-2024 Miscellaneous Notes Forms signed and faxed. [...] from September 02 visit be faxed to [phone]. Printed and faxed as requested. This number pt is wanting us to call is not correct. Called pt to get correct number looks like numbers were transposed below . Correct number is [phone] Called facility and Jamie has left for the day. Left a message with Isabella as to the pt not being seen until the and asking him to return call. Patient calling asking about forms to be able to move to [facility]. Went over notes below. Patient asking if could call Jamie Jacob at [facility] [phone]. Please advise [facility] that patient will be seeing me on 10/07/2024 for her medicare wellness and her complete PE. Forms can not be completed till that time. If patient can be seen sooner that is fine as well. Formers were received and given to provider to complete. Lana Schwartz MA Pt is calling to check on form that [facility] [place] sent to pcp. Pt reports [facility] states they sent form a few days ago. Pt reports this form needs filled out and sent back to [facility]. Pt is looking to move into [facility]. If form has not been received please call [facility] to let them know. Amy Evans LPN documented in this encounter [facility] 09-18-2024 Telephone encounter Note Forms completed [facility] 09-18-2024 Telephone encounter Note Patient daughter Barbie [...] she just needs the form signed please. [facility] 09-18-2024 Telephone encounter Note Phoned Graciela spoke to Jamie. Went over notes below from Dr Urbina with understanding. Patient son upset that patient can not move in next week as planned, they are self pay. Jamie asking if office notes from September 02 visit be faxed to [phone]. Printed and faxed as requested. [facility] 09-17-2024 Telephone encounter Note This number pt is wanting us to call is not correct. Called pt to get correct number looks like numbers were transposed below . Correct number is [phone] Called facility and Jamie has left for the day. Left a message with Isabella as to the pt not being seen until the and asking him to return call. [facility] 09-17-2024 Telephone encounter Note Patient calling asking about forms to be able to move to [place]. Went over notes below. Patient asking if could call Jamie Phelpsboyd at [place] [phone]. [facility] 09-15-2024 Telephone encounter Note Please advise Graciela that patient will be seeing me on 10/07/2024 for her medicare wellness and her complete PE. Forms can not be completed till that time. If patient can be seen sooner that is fine as well. [facility] 09-15-2024 Telephone encounter Note Formers were received and given to provider to complete. Lana Schwartz MA [facility] 09-15-2024 Telephone encounter Note Pt is calling to check on form that Graciela [place] sent to pcp. Pt reports Graciela states they sent form a few days ago. Pt reports this form needs filled out and sent back to Graciela. Pt is looking to move into [place]. If form has not been received please call Graciela to let them know. Amy Evans LPN [facility] 09-09-2024 Telephone encounter Note Knee xrays show progressive osteoarthrosis bilaterally. I can place referral to orthopedics for patient if she would like so she can discuss options. Dianne Rueda APRN.CNP [facility] Work Phone: 09-09-2024 Miscellaneous Notes Knee xrays show progressive osteoarthrosis bilaterally. I can place referral to orthopedics for patient if she would like so she can discuss options. Dianne Rueda APRN.MARIAH documented in this encounter [facility] 09-02-2024 History of Present illness Narrative Radiology [...] PATIENT PRESENTS WITH AN IMPLANTABLE OR ATTACHED STREET WORKER: No RADIOLOGY DEPARTMENT: General X-ray: Exam(s) Completed: Lower Extremity X-Ray(s): Knee, AP / Lat / Tunne / Merchant Bilateral and Wt. Bearing PERIPHERAL IV DATA: Not applicable SIGNED BY: RT Marlin(R) September 02, 2024 4:22 PM documented in this encounter [facility] 09-02-2024 Note [facility] 09-02-2024 Instructions Chencho Urbina MD - 09/02/2024 4:04 PM EDT We are going to stop the losartan and start valsartan/hydrochlorothiazide 80/12.5 We are going to start Ropinirole at night to see if it stops the leg poking. We are starting Prozac (fluoxitine) 10 mg a day for moods documented in this encounter [facility] 09-02-2024 Note [facility] 09-02-2024 History of Present illness Narrative Chief [...] 65%, with mild diast dysf and 1+ UT. CARDIAC STRESS TEST 05/01/2017 negative CHOLECYSTECTOMY 1985 [...] (CENTRUM SILVER WOMEN ORAL) Take by mouth. gvwzuki-pjryuvejg-ktlrvpt D3 500 mg-5 mcg (200 unit) per [...] Negative Negative Ketones, Urine Negative Negative Specific [place], Ur 1.005 - 1.030 1.007 Hemoglobin/Blood,Ur Negative [...] which included preparing to see the patient, [id number] patient care, completing clinical documentation, performing a medically appropriate examination, counseling and educating the patient/family/caregiver and ordering medications, tests, or procedures. Chencho Urbina MD documented in this encounter [facility] 08-28-2024 Telephone encounter Note Patient returned call and went over notes below from Dr Urbina with understanding. [facility] 08-28-2024 Miscellaneous Notes Patient returned call and [...] call and advise. documented in this encounter [facility] 08-28-2024 Telephone encounter Note Called and left a voicemail for the Patient to call back and ask for a nurse to receive the providers message. Willa Yusuf RN [facility] 08-28-2024 Telephone encounter Note Let patient know I placed orders for urine and blood work. [facility] 08-28-2024 Telephone encounter Note Pt had called [...] get labs done. Please call and advise. [facility] 08-19-2024 Telephone encounter Note Patient notified of results, verbalizes understanding of instructions. Pt stated she is doing much better. Betty Decker LPN [facility] 08-19-2024 Miscellaneous Notes Patient notified of results, [...] Jean Jara APRN.CNP documented in this encounter [facility] 08-19-2024 Telephone encounter Note Please let the patient know that her urine culture grew some bacteria but not any certain type of bacteria. Could be a result of the collection process. Can you please ask her how her symptoms are? Are they improving? Worsening or no different? Please send response back to me. Jean Jara APRN.CNP [facility] 08-17-2024 Instructions Jean Jara APRN.CNP - 08/17/2024 1:29 PM EDT Hold Centrum, Magnesium and Calcium/vitamin D tablets for 1 week while on Ciprofloxacin Jean Jara APRN.CNP documented in this encounter [facility] 08-17-2024 History of Present illness Narrative Chief [...] She has a scheduled appointment with an imcu nurse on . She has a history of [...] an upcoming ophthalmology appointment on . Jean Jara APRN.RN TRANSITION Continue with scheduled follow-up with PCP in 3 to 4 weeks. This note was partly generated using [employer] voice recognition dictation and may contain some misspelled or inaccurate words missed on review. The patient consented to the use of [employer] software for draft documentation of the visit consistent with [facility] s Notice of Privacy Practices. documented in this encounter [facility] 08-17-2024 Note [facility] 07-30-2024 Telephone encounter Note Pt notified of same. Venita Green LPN [facility] 07-30-2024 Miscellaneous Notes Pt notified of same. Venita Green LPN Repeat urine is normal No more RBC noted. documented in this encounter [facility] 07-30-2024 Telephone encounter Note Repeat urine is normal No more RBC noted. [facility] 07-07-2024 Telephone encounter Note Pt notified of Cassandra's instructions. Pt verbalizes understanding. Venita Green LPN [facility] 07-07-2024 Miscellaneous Notes Pt notified of Cassandra's instructions. Pt verbalizes understanding. eVnita Green LPN BP looks okay. Will keep [...] home bp readings. documented in this encounter [facility] 07-07-2024 Telephone encounter Note BP looks okay. Will keep things as is for now Cassandra Arshad PA-C [facility] 07-06-2024 Telephone encounter Note Spoke with patient; [...] 07/05 3pm 134/86 81 Lana Schwartz MA [facility] 07-06-2024 Telephone encounter Note Tried to reach pt, line rings busy. Ayaka Arreola MA [facility] 07-06-2024 Telephone encounter Note Please ask patient for home bp readings. [facility] 06-26-2024 Telephone encounter Note Patient notified of results and provider's instructions. Patient verbalizes understanding. Venita Green LPN [facility] 06-26-2024 Miscellaneous Notes Patient notified of results and provider's instructions. Patient verbalizes understanding. Venita Green LPN Let patient know that her bladder and kidney US was okay. Lets repeat urinalysis in 1 month. Please hydrate well prior to giving sample. Cassandra Arshad PA-C documented in this encounter [facility] 06-26-2024 Telephone encounter Note Let patient know that her bladder and kidney US was okay. Lets repeat urinalysis in 1 month. Please hydrate well prior to giving sample. Cassandra Arshad PA-C [facility] 06-24-2024 History of Present illness Narrative Radiology [...] PATIENT PRESENTS WITH AN IMPLANTABLE OR ATTACHED STREET WORKER: No RADIOLOGY DEPARTMENT: Ultrasound PERIPHERAL IV DATA: Not applicable SIGNED BY: Pauly Barnett RDMS RVT June 24, 2024 3:45 PM documented in this encounter [facility] 06-24-2024 Note [facility] 06-18-2024 Telephone encounter Note Patient notified of results and provider's instructions. Patient verbalizes understanding. Pt was assisted in transfer to set up US. Venita Green LPN [facility] 06-18-2024 Miscellaneous Notes Patient notified of results [...] to further evaluate. documented in this encounter [facility] 06-18-2024 Telephone encounter Note Let patient know that her urine shows evidence of dehydration. She also has small amount of blood and calcium oxalate crystal which could be from possible stones. I would like to get a bladder/kidney US to further evaluate. [facility] 06-15-2024 Instructions Cassandra Arshad PA-C - 06/15/2024 1:34 PM EST Please update us with home bp readings in about 4 weeks (we will call you). documented in this encounter [facility] 06-15-2024 Note [facility] 06-15-2024 History of Present illness Narrative Chief [...] 65%, with mild diast dysf and 1+ UT. CARDIAC STRESS TEST 05/01/2017 negative CHOLECYSTECTOMY 1985 [...] (CENTRUM SILVER WOMEN ORAL) Take by mouth. qnsbldz-edooxxflh-yuliplt D3 500 mg-5 mcg (200 unit) per [...] Cassandra Arshad PA-C documented in this encounter [facility] 06-08-2024 Note [facility] 06-08-2024 History of Present illness Narrative Chief [...] 65%, with mild diast dysf and 1+ UT. CARDIAC STRESS TEST 05/01/2017 negative CHOLECYSTECTOMY 1985 [...] (CENTRUM SILVER WOMEN ORAL) Take by mouth. roxhdtp-hqchdxouj-ymyqlkb D3 500 mg-5 mcg (200 unit) per [...] - CEFDINIR 300 MG CAPSULE Elisa Doherty APRN.RN TRANSITION documented in this encounter [facility] 05-12-2024 Telephone encounter Note Patient scheduled. [facility] 05-12-2024 Miscellaneous Notes Patient scheduled. See if [...] Cassandra Arshad PA-C documented in this encounter [facility] 05-12-2024 Telephone encounter Note See if patient is willing to schedule a BP Check in early June since her readings are still borderline high. Cassandra Arshad PA-C [facility] 05-12-2024 Telephone encounter Note Patient states she hasn't been writing them down. Just took BP this morning around 7:30am, states it was around 142/92. She did state that most of the pressures she has been taking have been around this number. Advised her to keep track of BP's from here on out, patient verbalized understanding. Please review and advise. [facility] 05-12-2024 Telephone encounter Note Please ask patient/patient's daughter for some home BP readings since she last saw me Thanks. Cassandra Arshad PA-C [facility] 05-11-2024 Miscellaneous Notes Patient needs to be scheduled for bone density for March 2025 due to insurance, please send updated bone density order. Thank you! documented in this encounter [facility] 05-11-2024 Telephone encounter Note Patient needs to be scheduled for bone density for March 2025 due to insurance, please send updated bone density order. Thank you! [facility] 05-04-2024 Note [facility] 05-04-2024 History of Present illness Narrative Chief [...] 65%, with mild diast dysf and 1+ UT. CARDIAC STRESS TEST 05/01/2017 negative CHOLECYSTECTOMY 1985 [...] (CENTRUM SILVER WOMEN ORAL) Take by mouth. ekumiaf-tumfpncjo-arodpgo D3 500 mg-5 mcg (200 unit) per [...] Lilia Langley LPN documented in this encounter [facility] 05-04-2024 Note HNO ID: [id number] Author: ANA LILIA LANGLEY LPN Service: ? Author Type: LICENSED NURSE Type: Progress Notes Filed: 05/04/2024 11:11 Note Text: Pain across lower back AND down right leg. Pain since falling in February. Ana Lilia Langley LPN [facility] 05-01-2024 Telephone encounter Note Phoned patient went over results, notes from Dianne Rueda DRILLER MACHINE with understanding. [facility] 05-01-2024 Miscellaneous Notes Phoned patient went over results, notes from Dianne Rueda DRILLER MACHINE with understanding. ----- Message from Dianne Rueda APRN.MARIAH sent at 05/01/2024 1:45 PM EST ----- Urine shows infection with E.Coli- the antibiotic she is on will cover this. Complete entire prescription. Follow-up if symptoms fail to improve. Dianne Rueda APRN.RN TRANSITION documented in this encounter [facility] 05-01-2024 Telephone encounter Note ----- Message from Dianne Rueda APRN.MARIAH sent at 05/01/2024 1:45 PM EST ----- Urine shows infection with E.Coli- the antibiotic she is on will cover this. Complete entire prescription. Follow-up if symptoms fail to improve. Dianne Rueda APRN.RN TRANSITION [facility] 04-29-2024 Note [facility] 04-29-2024 History of Present illness Narrative 04/29/2024 [...] (CENTRUM SILVER WOMEN ORAL) Take by mouth. pxbfphh-dqqmlsepy-hprcrxh D3 500 mg-5 mcg (200 unit) per [...] ORAL CAP - URINE CULTURE Dianne Rueda APRN.RN TRANSITION Prescription instructions reviewed with patient as applicable. [...] 3 - Low documented in this encounter [facility] 04-29-2024 Telephone encounter Note Patient calls and [...] discuss this today 04/29/2024. Kim Ferguson RN [facility] 04-29-2024 Miscellaneous Notes Patient calls and states [...] Kim Ferguson RN documented in this encounter [facility] 04-03-2024 Telephone encounter Note Robert at [facility] calling to request pt's recent BMP lab results to be used mutually with pt's appt there. Faxed as requested to [phone] Juliann Vu RN [facility] 04-03-2024 Miscellaneous Notes Robert at [facility] calling to request pt's recent BMP lab results to be used mutually with pt's appt there. Faxed as requested to [phone] Juliann Vu RN documented in this encounter [facility] 03-26-2024 Telephone encounter Note Pt notified of results. Venita Green LPN [facility] 03-26-2024 Miscellaneous Notes Pt notified of results. Venita Green LPN Let patient know that her potassium level is back to normal. Sodium is still good. Thyroid normal Blood counts are okay. Cassandra Arshad PA-C documented in this encounter [facility] 03-26-2024 Telephone encounter Note Pt notified of rx change with verbalized understanding. Venita Green LPN [facility] 03-26-2024 Miscellaneous Notes Pt notified of rx change with verbalized understanding. Venita Green LPN The following approved medication requests have been transmitted electronically. Requested Prescriptions Signed Prescriptions Disp Refills omeprazole (PRILOSEC) 40 mg capsule 90 capsule 1 Sig: Take 1 capsule by mouth once daily. Take 30 minutes before breakfast. Authorizing Provider: CASSANDRA ARSHAD PA-C [facility] calling to request a new script for Omeprazole 40mg daily. Insurance doesn't cover Omeprazole 20 mg two capsules daily. Would require a prior auth. Ursula Yuen, MILLICENT documented in this encounter [facility] 03-26-2024 Telephone encounter Note Let patient know that her potassium level is back to normal. Sodium is still good. Thyroid normal Blood counts are okay. Cassandra Arshad PA-C [facility] 03-26-2024 Telephone encounter Note The following approved medication requests have been transmitted electronically. Requested Prescriptions Signed Prescriptions Disp Refills omeprazole (PRILOSEC) 40 mg capsule 90 capsule 1 Sig: Take 1 capsule by mouth once daily. Take 30 minutes before breakfast. Authorizing Provider: CASSANDRA ARSHAD PA-C [facility] 03-25-2024 Telephone encounter Note [facility] calling to request a new script for Omeprazole 40mg daily. Insurance doesn't cover Omeprazole 20 mg two capsules daily. Would require a prior auth. Ursula Yuen RN [facility] 03-25-2024 Note [facility] 03-25-2024 History of Present illness Narrative Chief [...] 65%, with mild diast dysf and 1+ UT. CARDIAC STRESS TEST 05/01/2017 negative CHOLECYSTECTOMY 1985 [...] (CENTRUM SILVER WOMEN ORAL) Take by mouth. obmgcib-wjzoovlnk-lnnkxhk D3 500 mg-5 mcg (200 unit) per [...] Negative Ketones, Urine Negative Trace ! 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 The patient's identity and location were verified. Either the patient or their legal inside account representative has been informed of the risks, benefits, and alternatives based on a remote evaluation, and consents to proceed remotely per [place] law. I will communicate my recommendations and [...] 65%, with mild diast dysf and 1+ UT. CARDIAC STRESS TEST 05/01/2017 negative CHOLECYSTECTOMY 1985 [...] (CENTRUM SILVER WOMEN ORAL) Take by mouth. qvtafcg-paenjtyrc-mnmflpk D3 500 mg-5 mcg (200 unit) per [...] placed previously; ok to schedule at the [facility] for late Mar or after - see back afterwards to discuss treatment for OP! follow up in early April Libertad Mckeon MS, RD, MD, CCD, FACN, FACP, FACE [facility] Office Building Office Any part of this document that has been added/copied & pasted from other documents has been reviewed for accuracy and updated as appropriate at the time of the patient encounter documented in this encounter [facility] 03-17-2024 Note HNO ID: [id number] Author: LIBERTAD MCKEON MD Service: ? 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 The patient's identity and location were verified. Either the patient or their legal inside account representative has been informed of the risks, benefits, and alternatives based on a remote evaluation, and consents to proceed remotely per [place] law. I will communicate my recommendations and [...] 65%, with mild diast dysf and 1+ UT. CARDIAC STRESS TEST 05/01/2017 negative CHOLECYSTECTOMY 1985 [...] SKELETON / ACCESSION (more content not included)... [facility] 03-17-2024 Telephone encounter Note Patient calls and notified of results and providers instructions. Patient verbalizes understanding. Declined lab appt. Will be here on the 16 for appt and have it done that day. Libia Genao RN [facility] 03-17-2024 Miscellaneous Notes Patient calls and notified of results and providers instructions. Patient verbalizes understanding. Declined lab appt. Will be here on the 16 th for appt and have it done that day. Libia Genao RN Please let patient know her sodium is better but her potassium is slightly low. Repeat bmp ordered for 1 week. documented in this encounter [facility] 03-17-2024 Telephone encounter Note Please let patient know her sodium is better but her potassium is slightly low. Repeat bmp ordered for 1 week. [facility] 03-16-2024 Note [facility] 03-16-2024 History of Present illness Narrative Jonny Suero MD Department of Orthopaedics [facility] [address] [place] [address] Dept: [phone] Dept March 16, 2024 CHIEF COMPLAINT: Established [...] without disruption of pelvic ring, initial encounter ([facility]) Comment: nondisplaced fractures of the right superior [...] There are multilevel lower lumbar degenerative changes. Rag Sorter: CECILE Transcribe Date/Time: Mar 19 2024 10:48A [...] without disruption of pelvic ring, initial encounter ([facility]) COMPARISON: CT abdomen/pelvis dated 04/14/2021. RESULT: See [...] 65%, with mild diast dysf and 1+ UT. CARDIAC STRESS TEST 05/01/2017 negative CHOLECYSTECTOMY 1985 [...] (CENTRUM SILVER WOMEN ORAL) Take by mouth. nncykyc-cgqjmzabg-ctafoas D3 500 mg-5 mcg (200 unit) per [...] requesting physician via US mail. Chencho Urbina [address] [facility] [address] Jonny Suero MD documented in this encounter [facility] 03-16-2024 History of Present illness Narrative Radiology [...] PATIENT PRESENTS WITH AN IMPLANTABLE OR ATTACHED STREET WORKER: No RADIOLOGY DEPARTMENT: General X-ray: Exam(s) Completed: Pelvis X-Ray: Pelvis inlet/outlet PERIPHERAL IV DATA: Not applicable SIGNED BY: RT Moriah(R) March 16, 2024 10:44 AM documented in this encounter [facility] 03-16-2024 Note [facility] 03-16-2024 Note [facility] 03-16-2024 History of Present illness Narrative Patient's home health 485 form / care plan for certification period 02/17/2024 to 04/16/2024 reviewed and signed. Relevant medical records were reviewed. Changes were communicated to home health agency documented in this encounter [facility] 03-11-2024 Telephone encounter Note Noted. [facility] 03-11-2024 Miscellaneous Notes Noted. Corina with PT [facility] calling with a plan of care for PT. Reevaluated and will continue with PT. Will see pt 2 times a week for week, then 1 time a week for 1 week Dx gait training and stair training using a single point cane. No call back needed. Yola Barbosa LPN documented in this encounter [facility] 03-11-2024 Note [facility] 03-11-2024 History of Present illness Narrative Transitional Care Management (TCM) Follow-Up Note PCP Update / Actionable Items Future Appts 03/16 Ortho [facility] 03/25 [facility] N/A - No specialty updates needed Patient Source: [id number] ([facility]ON) Discharge Outreach Summary: Patient states is [...] , no issues, stable Patient discharged from [facility] Discharge date: 02/16/24 Admitted for: [...] 2024 1:41 PM documented in this encounter [facility] 03-11-2024 Telephone encounter Note Corina with PT [facility] calling with a plan of care for PT. Reevaluated and will continue with PT. Will see pt 2 times a week for week, then 1 time a week for 1 week Dx gait training and stair training using a single point cane. No call back needed. Yola Barbosa LPN [facility] 03-06-2024 Telephone encounter Note Pt notified and verbalized understanding Celia Aleman MA [facility] 03-06-2024 Miscellaneous Notes Pt notified and verbalized [...] back to normal. documented in this encounter [facility] 03-04-2024 Note [facility] 03-04-2024 History of Present illness Narrative Transitional Care Management (TCM) Follow-Up Note PCP Update / Actionable Items Day Future Appts 03/16 Orth[facility] 03/25 [facility] N/A - No specialty updates needed Patient Source: [id number] (OON) Discharge Outreach Summary: Patient states is [...] , no issues, stable Patient discharged from [facility] Discharge date: 02/16/24 Admitted for: [...] 2024 2:57 PM documented in this encounter [facility] 03-03-2024 Telephone encounter Note Patient should decrease sodium tablets to daily and repeat bmp in 2 weeks. [facility] [facility] Telephone encounter Note Pt called and is notified of providers results. Pt voices understanding. Pt asking if she still needs to be taking the sodium chloride tablets. Willa Yusuf RN [facility] 03-03-2024 Telephone encounter Note Please let patient know her sodium is back to normal. [facility] 02-26-2024 Note [facility] 02-26-2024 History of Present illness Narrative Chief [...] 2 business days post-discharge Provider Documentation Leonor Pal is a 83 year old [...] Discharge Follow up.. Patient was admitted to [facility] after a fall. She fell on [...] 65%, with mild diast dysf and 1+ UT. CARDIAC STRESS TEST 05/01/2017 negative CHOLECYSTECTOMY 1985 [...] (CENTRUM SILVER WOMEN ORAL) Take by mouth. elvowzl-hbscjznek-hwhersx D3 500 mg-5 mcg (200 unit) per [...] Chencho Urbina MD documented in this encounter [facility] 02-24-2024 Telephone encounter Note Patient was made aware of the results. Patient verbalizes understanding. Migdalia Chacko Ma [facility] 02-24-2024 Miscellaneous Notes Patient was made aware of the results. Patient verbalizes understanding. Migdalia Chacko Ma Let patient know her sodium is improving. Will most likely repeat after she sees me this week. documented in this encounter [facility] 02-23-2024 Telephone encounter Note Let patient know her sodium is improving. Will most likely repeat after she sees me this week. [facility] 02-20-2024 Telephone encounter Note Copy of med list faxed to [facility] as requested. Venita Green LPN [facility] 02-20-2024 Miscellaneous Notes Copy of med list faxed to [facility] as requested. Venita Green LPN Aspirin has been placed on med list. Please copy of med list. [facility] called in and reports Pt states she [...] please fax to her ar fax # [phone]. documented in this encounter [facility] 02-20-2024 Telephone encounter Note Aspirin has been placed on med list. Please copy of med list. [facility] 02-20-2024 Telephone encounter Note [facility] called in and reports Pt states she [...] please fax to her ar fax # [phone]. [facility] 02-20-2024 History of Present illness Narrative Transitional Care Management TCM Eligibility Documentation Program: Transitional Care Management Status: Enrolled Effective Dates: 02/17/2024 - present Responsible Staff: Kaity Quintero RN Discharge date: 02/16/2024 (Program start) Date of initial contact: 02/17/2024 Initial contact Target status: Successful; Contact made within 2 business days post-discharge Provider Documentation Leonor Pal is a 83 year old [...] Discharge Follow up.. Patient was admitted to [facility] after a fall. She fell on [...] 65%, with mild diast dysf and 1+ UT. 05/01/2017: CARDIAC STRESS TEST Comment: negative 1985: [...] 1 in morning and 2 at night. obxbzwe-wcxaidacx-ndxmkhw D3 500 mg-5 mcg (200 unit) per [...] without disruption of pelvic ring, initial encounter ([facility]) - ICD9: 808.44, ICD10: S32.82XA - cont PHYSICAL THERAPY and OT - CONSULT TO ORTHOPAEDICS F/u in a week for blood pressure visit. I spent a total of 44 minutes on the date of the service which included preparing to see the patient, ggnm-xl-qomp patient care, completing clinical documentation, performing a medically appropriate examination, counseling and educating the patient/family/caregiver and ordering medications, tests, or procedures. Chencho Urbina MD documented in this encounter [facility] 02-20-2024 Note [facility] 02-19-2024 Telephone encounter Note Patient is scheduled tomorrow for hospital follow up. Lana Schwartz MA [facility] 02-19-2024 Miscellaneous Notes Patient is scheduled tomorrow for hospital follow up. Lana Schwartz MA [facility] called and is notified of providers message [...] was with Rofecoxib. Mera, a nurse with [facility], calls to report a medication issue that [...] Amy Evans LPN documented in this encounter [facility] 02-19-2024 Telephone encounter Note Yes. [facility] 02-19-2024 Miscellaneous Notes Yes. Carrie calling from [facility] asking if you will continue to following for: Orders are : OT once weekly for 3 weeks for fall prevention and laundry. She stated that if approved no call back needed Please advise. Irish Lomeli LPN documented in this encounter [facility] 02-19-2024 Telephone encounter Note Carrie calling from [facility] asking if you will continue to following for: Orders are : OT once weekly for 3 weeks for fall prevention and laundry. She stated that if approved no call back needed Please advise. Irish Lomeli LPN [facility] 02-18-2024 Telephone encounter Note [facility] called and is notified of providers message and instructions. She voices understanding. She states the Asprin is a (baby) so 81 mg daily. She will find out why she is taking it, and asking about the Rofecoxib allergy and call back. Once we have the reason for the Asprin we can update the medication list. Willa Yusuf RN [facility] 02-18-2024 Telephone encounter Note Advise Nurse I don't have the patient on Aspirin. She has never told us she was taking it. Can she find out from the patient if she is taking it and if so how long she has been taking aspirin and at what strength. Also per I records patient has no idea what her issue was with Rofecoxib. [facility] 02-18-2024 Telephone encounter Note Mera, a nurse with [facility], calls to report a medication issue that [...] Please review and advise. Amy Evans LPN [facility] 02-17-2024 Note [facility] 02-17-2024 History of Present illness Narrative Transition Care Management (TCM) Initial Outreach PCP Update / Actionable Items Eligible for tcm through 03/01/24 Future Appts 02/19 [facility] 03/25 [facility] HRTIC TCM Home Visit Referral Source of Stratification: [facility] Hospital Admission Status: Discharged Readmission Risk Score: n/a Patient's zip code: [address] Is zip code within program service area: No Patient meets program referral criteria: No Patient does not qualify for High Risk TCM Home Visit program due to: Patient's zip code is not located within program service area Disposition: Patient does not qualify for HRTIC, will provide TCM outreach follow-up for 30-days Patient Source: [id number] (OON) Discharge Outreach Summary: Patient states is [...] , no issues, stable Patient discharged from [facility] Discharge date: 02/16/24 Admitted for: Fall, Closed pelvic fracture, Hyponatremia: Readmission Risk: n/a Value-Based Contract: ACO Contact: Contact made with patient: Yes Hi, my name is Kaity Quintero RN and I am calling from the [facility] on behalf of your Primary Care Provider, [...] you? Yes Name of Home Care Agency: [facility] Phone number, if available: n/a Start of [...] like to speak with a social work maintenance team leader to help give you support for any [...] I will send your request to a contracts director who will contact and assist you with [...] 2024 4:13 PM documented in this encounter [facility] 02-17-2024 Telephone encounter Note Alba- [facility]- calling in PT POC: will see patient 2 x's week for 1 week, then 1 x week for 3 weeks, for pain management, strengthening, and fall prevention. Does not need a call back. [facility] 02-17-2024 Miscellaneous Notes Alba- [facility]- calling in PT POC: will see patient 2 x's week for 1 week, then 1 x week for 3 weeks, for pain management, strengthening, and fall prevention. Does not need a call back. documented in this encounter [facility] 02-17-2024 Note [facility] 02-17-2024 History of Present illness Narrative Scan on 02/16/2024 12:59 PM by Provider, External, [facility]: Consultation - Emergency Medicine Patient is scheduled for hospital follow up. 02/20/2024 Lana Schwartz MA documented in this encounter [facility] 02-16-2024 Note [facility] Medical Records Department [address] [place] [address] Discharge Summary 02/16/24 1235 MR#: [id number] Acct: [id number] Name: LEONOR PAL Rep #: [id number] : 1940 83 From: Ayaka Cuba DO PCP: Dr. Chencho Urbina MD Status:ADM IN Location: [facility] [place] [place] WC454-8 Providers Date of Admission: 02/13/24 Date of [...] tablet 12.5 mg PO BID-TID vertigo 04/09/19 ogauvetu-cero-tsbl 8 mg-folic 400 mcg-K 50 mcg-lutein 300 [...] who presented to the emergency department at [facility] on 02/13/2024 after sustaining a [...] symptoms after discon (more content not included)... [facility] 02-14-2024 Telephone encounter Note Left detailed message with Dr. Urbina's instructions. Lana Schwartz MA [facility] 02-14-2024 Miscellaneous Notes Left detailed message with Dr. Urbina's instructions. Lana Schwartz MA If they are asking if I will follow for home health care orders, then yes. Patient needs to have f/u with ortho though. Please see hospital scanned documents. Patient had a fall and nondisplaced along right medial aspect of superior and inferior public rami Lana Schwartz MA Corina from [facility] calling asking if doctor will follow for pt to have PT and OT starting Saturday. Please advise. documented in this encounter [facility] 02-14-2024 Telephone encounter Note If they are asking if I will follow for home health care orders, then yes. Patient needs to have f/u with ortho though. [facility] 02-14-2024 Telephone encounter Note Please see hospital scanned documents. Patient had a fall and nondisplaced along right medial aspect of superior and inferior public rami Lana Schwartz MA [facility] 02-14-2024 Telephone encounter Note Corina from [facility] calling asking if doctor will follow for pt to have PT and OT starting Saturday. Please advise. [facility] 02-14-2024 Note [facility] 02-14-2024 History of Present illness Narrative Scan on 02/13/2024 6:00 PM by ProviderTao PA-C: Consultation - Emergency Medicine Scan on 02/13/2024 6:08 PM by Tao Lyons PA-C: Consultation - Emergency Medicine Lana Schwartz MA documented in this encounter [facility] 01-14-2024 Telephone encounter Note Prescription Refill Information [...] Alba Baptiste January 14, 2024 9:11 AM [facility] Work Phone: 01-14-2024 Miscellaneous Notes Prescription Refill [...] 2024 9:11 AM documented in this encounter [facility] 01-06-2024 Telephone encounter Note Contacted patient and they do have refill and processing medication. Lana Schwartz MA [facility] 01-06-2024 Miscellaneous Notes Contacted patient and they [...] 2024 10:16 AM documented in this encounter [facility] 01-06-2024 Telephone encounter Note Prescription Refill Information [...] Alba Baptiste January 06, 2024 10:16 AM [facility] Work Phone: 01-01-2024 Telephone encounter Note Mahi with [facility] calls to report patient is currently in office being seen by Dr. Esparza and is requesting to have labs from November 2023 faxed to them. Faxed to [phone] per request. Libia Genao, RN [facility] 01-01-2024 Miscellaneous Notes Mahi with [facility] calls to report patient is currently in office being seen by Dr. Esparza and is requesting to have labs from November 2023 faxed to them. Faxed to [phone] per request. Libia Genao RN documented in this encounter [facility] 11-28-2023 History of Present illness Narrative [facility] Established Visit Leonor Pal [facility]#: [id number] Date of Service: 11/28/2023 Primary Care Provider: [...] 65%, with mild diast dysf and 1+ UT. CARDIAC STRESS TEST 05/01/2017 negative CHOLECYSTECTOMY 1985 [...] once daily. Take 30 minutes before breakfast. ukkbtqc-mylqwkxel-xuoxmgu D3 500 mg-5 mcg (200 unit) per [...] Staff, Neuroendovascular Intervention documented in this encounter [facility] 11-28-2023 Note HNO ID: [id number] Author: KIERRA ALFARO MD Service: ? Author Type: Physician Type: Progress Notes Filed: 12/24/2023 10:35 Note Text: [facility] Established VIRTUAL Visit I have communicated my name and active licensure. The patient's identity and physical location were verified at the time of this visit. Either the patient or their legal inside account representative has been informed of the risks and benefits of -- and alternatives to -- treatment through a remote evaluation and consents to proceed with the evaluation remotely. Patient consents to this virtual visit using MyChart Zoom Video Visit. The visit required patient-provider interaction for the medical decision making as documented below. Leonor Pal [facility]#: [id number] Date of Service: 11/28/2023 Primary Care Provider: [...] 65%, with mild diast dysf and 1+ UT. CARDIAC STRESS TEST 05/01/2017 negative CHOLECYSTECTOMY 1985 [...] once daily. Take 30 minutes before breakfast. ungrcsk-osomovjtp-rxtelvs D3 500 mg-5 mcg (200 unit) per tablet Take 1 tablet by mouth two time (more content not included)... 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 The patient's identity and location were verified. Either the patient or their legal inside account representative has been informed of the risks, benefits, and alternatives based on a remote evaluation, and consents to proceed remotely per [place] law. I will communicate my recommendations and findings via shared medical record and/or USPS CC: s/p [facility] HPI: Leonor Pla is a 83 year old female who [...] 65%, with mild diast dysf and 1+ UT. CARDIAC STRESS TEST 05/01/2017 negative CHOLECYSTECTOMY 1985 [...] DATE OF EXAM: Mar 18 2023 2:44PM [facility] 0802 - BD VFA WITH DXA - [...] once daily. Take 30 minutes before breakfast. bzeegkt-ngkypnreh-uehlyuh D3 500 mg-5 mcg (200 unit) per [...] orders placed to do so at the [place] facility the last week in Mar 2024 follow up in early April and prn Libertad Mckeon, MS, RD, MD, CCD, FACN, FACP, FACE [facility] Office Building Office Any part of this document that has been added/copied & pasted from other documents has been reviewed for accuracy and updated as appropriate at the time of the patient encounter documented in this encounter [facility] 11-26-2023 Note HNO ID: [id number] Author: LIBERTAD MCKEON MD Service: ? 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 The patient's identity and location were verified. Either the patient or their legal inside account representative has been informed of the risks, benefits, and alternatives based on a remote evaluation, and consents to proceed remotely per [place] law. I will communicate my recommendations and [...] 65%, with mild diast dysf and 1+ UT. CARDIAC STRESS TEST 05/01/2017 negative CHOLECYSTECTOMY 1985 [...] dose AP spine (more content not included)... [facility] 11-16-2023 Telephone encounter Note The charges have been removed. [facility] 11-16-2023 Miscellaneous Notes The charges have been [...] Cassandra Arshad PA-C documented in this encounter [facility] 11-15-2023 Telephone encounter Note Patient notified and voiced understanding. Lana Schwartz MA Do we need to have it so patient is not charged for those labs? Lana Schwartz MA [facility] 11-15-2023 Telephone encounter Note Let patient know that the routine labs were due in March were pulled too early. I have put the orders back in for March. The labs she needed for endo were still completed and they will discuss those results with you at the visit with endo. thanks Cassandra Arshad PA-C [facility] 11-15-2023 History of Present illness Narrative Radiology [...] PATIENT PRESENTS WITH AN IMPLANTABLE OR ATTACHED STREET WORKER: No ALLERGIES: Reviewed and unchanged CONTRAST ALLERGY: [...] TIME: 4:14 PM documented in this encounter [facility] 11-15-2023 Note [facility] 11-01-2023 Telephone encounter Note Patient has been [...] Please advise. Thank you. Cassidy Meza LPN. [facility] 11-01-2023 Miscellaneous Notes Patient has been identified [...] Cassidy Meza LPN. documented in this encounter [facility] 10-07-2023 Telephone encounter Note Patient called c/o [...] if needed. 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 The patient's identity and location were verified. Either the patient or their legal inside account representative has been informed of the risks, benefits, and alternatives based on a remote evaluation, and consents to proceed remotely per [place] law. I will communicate my recommendations and [...] 65%, with mild diast dysf and 1+ UT. CARDIAC STRESS TEST 05/01/2017 negative CHOLECYSTECTOMY 1985 [...] DATE OF EXAM: Mar 18 2023 2:44PM [facility] 0802 - BD VFA WITH DXA - [...] on File Prior to Visit Medication Sig gakufyc-ibhstlmfz-beycozh D3 500 mg-5 mcg (200 unit) per [...] orders placed to do so at the [place] facility the last week in Mar 2024 follow up in early April and prn Libertad Mckeon, MS, RD, MD, CCD, FACN, FACP, FACE [facility] Office Building Office Any part of this document that has been added/copied & pasted from other documents has been reviewed for accuracy and updated as appropriate at the time of the patient encounter documented in this encounter [facility] 10-01-2023 Note HNO ID: [id number] Author: LIBERTAD MCKEON MD Service: ? Author Type: Physician Type: Progress Notes Filed: 10/01/2023 11:09 Note Text: [facility] LAST SEEN 07-09-2023 RE:Post parathyroidectomy care - 2 gland R and L upper 03-25-2023 IF THIS IS A VIRTUAL VISIT: I have communicated my name and licensure. The patient's identity and location were verified. Either the patient or their legal inside account representative has been informed of the risks, benefits, and alternatives based on a remote evaluation, and consents to proceed remotely per [place] law. I will communicate my recommendations and [...] 65%, with mild diast dysf and 1+ UT. CARDIAC STRESS TEST 05/01/2017 negative CHOLECYSTECTOMY 1985 [...] AXIAL SKELETON INDICATI (more content not included)... [facility] 09-24-2023 History of Present illness Narrative Leonor [...] 65%, with mild diast dysf and 1+ UT. CARDIAC STRESS TEST 05/01/2017 negative CHOLECYSTECTOMY 1985 [...] (CENTRUM SILVER WOMEN ORAL) Take by mouth. wekalxo-sbtofzeok-nsyhvgu D3 500 mg-5 mcg (200 unit) per [...] Abs Lymph 1.00 - 4.00 k/uL 1.32 [place]% % 10.8 Abs [place] <0.87 k/uL 0.72 Eosin% % 1.1 Abs [...] which included preparing to see the patient, kcjn-hq-taaq patient care, completing clinical documentation, obtaining and/or reviewing separately obtained history, performing a medically appropriate examination, ordering medications, tests, or procedures, and communicating results to the patient/family/caregiver. , documented in this encounter [facility] 09-24-2023 Instructions Cassandra Arhsad PA-C - 09/24/2023 10:36 AM EDT Screening [...] review all the medicines you take, even htpf-qha-ixcwnej medicines. As you get older, the way [...] certain medical conditions. documented in this encounter [facility] 07-09-2023 Note HNO ID: [id number] Author: LIBERTAD MCKEON MD Service: ? 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 The patient's identity and location were verified. Either the patient or their legal inside account representative has been informed of the risks, benefits, and alternatives based on a remote evaluation, and consents to proceed remotely per [place] law. I will communicate my recommendations and [...] 65%, with mild diast dysf and 1+ UT. CARDIAC STRESS TEST 05/01/2017 negative CHOLECYSTECTOMY 1985 [...] DATE OF EXAM: Mar 18 2023 2:44PM [facility] 0802 - BD VFA WITH DXA - [...] The bone mineral (more content not included)... [facility] 05-16-2023 Instructions Kierra Alfaro MD - 05/16/2023 [...] Written by the doctors and editors at [facility] What is a brain aneurysm? -- [...] process is complete. This topic retrieved from [employer] on: October 09, 2021. Topic 48338 Version 8.0 Release: 30.2.2 - C30.121 2021 [employer]. and/or its affiliates. All rights reserved. A [...] or approved for treating a specific patient. [employer] and its affiliates disclaim any warranty or liability relating to this information or the use thereof.The use of this information is governed by the Terms of Use, available at https://www.[employer].com/en/k now/bzxfuccw-falomwfiommhp-ypwdo 2021 [employer] and its affiliates and/or licensors. All rights reserved. Call 911 or get to the nearest emergency room as soon as possible if you have these symptoms. documented in this encounter [facility] 05-16-2023 Note HNO ID: [id number] Author: Kierra Alfaro MD Service: ? Author Type: Physician Type: Progress Notes Filed: 05/17/2023 2:15 PM Note Text: [facility] Established Visit Leonor Pal CC#: [id number] Date of Service: 05/16/2023 Primary Care Provider: [...] 65%, with mild diast dysf and 1+ UT. CARDIAC STRESS TEST 05/01/2017 negative CHOLECYSTECTOMY 1985 [...] [Sertraline] Medications: Current Outpatient Medications Medication Sig wcxuwyb-bvdiicszp-shutngc D3 500 mg-5 mcg (200 unit) per [...] kg/m? General: Th (more content not included)... [facility] 05-16-2023 History of Present illness Narrative [facility] Established Visit Leonor Pal CC#: [id number] Date of Service: 05/16/2023 Primary Care Provider: [...] 65%, with mild diast dysf and 1+ UT. CARDIAC STRESS TEST 05/01/2017 negative CHOLECYSTECTOMY 1985 [...] [Sertraline] Medications: Current Outpatient Medications Medication Sig vnngxku-sdpwdqxvl-sbzrngq D3 500 mg-5 mcg (200 unit) per [...] however, are cut off from the MRA cbsly-kp-xyrx. I suggested that we obtain a CTA head and neck in 6 months, then return to clinic to follow up with Shanika Mishra APRN.RN TRANSITION, our neuroendovascular nurse practitioner. This will allow us to have an overall better view of her cervical and intracranial arterial circulation. Katherin and her daughter Barbie are agreeable with this plan. 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 The patient's identity and location were verified. Either the patient or their legal inside account representative has been informed of the risks, benefits, and alternatives based on a remote evaluation, and consents to proceed remotely per [place] law. I will communicate my recommendations and [...] 65%, with mild diast dysf and 1+ UT. CARDIAC STRESS TEST 05/01/2017 negative CHOLECYSTECTOMY 1985 [...] every 4 hours as needed for pain. ropqxnd-czjcmljim-dfhvnfr D3 500 mg-5 mcg (200 unit) per [...] FACP, FACE [facility] Medical Office Building Office Any part of this document that has been added/copied & pasted from other documents has been reviewed for accuracy and updated as appropriate at the time of the patient encounter documented in this encounter [facility] 05-14-2023 Note HNO ID: [id number] Author: Libertad Mckeon MD Service: ? Author [...] verified. Either the patient or their legal inside account representative has been informed of the risks, benefits, and alternatives based on a remote evaluation, and consents to proceed remotely per [place] law. I will communicate my recommendations and [...] 65%, with mild diast dysf and 1+ UT. CARDIAC STRESS TEST 05/01/2017 negative CHOLECYSTECTOMY 1985 [...] COMPARISON: 09/04/2010 LUMB (more content not included)... [facility] 04-10-2023 History of Present illness Narrative Endocrinology Metabolism [place] [facility] Marge Hayes M.D. Section of Endocrine Surgery and Advanced Laparoscopic Surgery [address] [place] [address], [place] [address] ENDOCRINE SURGERY POST OPERATIVE FOLLOW UP NOTE NAME: Leonor Pal [facility] NO: [id number] : 1940 Surgeon: Dr. Marge Hayes This was a phone visit. I have communicated my name and active licensure. The patient's identity and physical location were verified at the time of this visit. Either the patient or their legal inside account representative has been informed of the risks [...] Hayes MD 04/10/2023 documented in this encounter [facility] 03-26-2023 Note HNO ID: [id number] Author: Marline Brito Jr., MD Service: ? [...] THROAT) q 2 H PRN phenol 1 [place] (CHLORASEPTIC) 1 [place] MUCOUS MEMBRANE (TOPICAL MOUTH AND THROAT) q 2 H PRN dextrose 5% in NaCl 0.45% with 20 mEq/L KCl iv infusion 75 mL/hr INTRAVENOUS CONTINUOUS acetaminophen 500 mg tab(s) (TYLENOL) 500 mg ORAL q 4 H PRN crammzs-aorsuczhx-vdbtqqq D3 500 mg-5 mcg (200 unit) 1 tablet 1 tablet ORAL TID calcium carbonate 500 mg chewable tab(s) (TUMS) 500 mg ORAL q 1 H PRN benzocaine-menthol 1 [place] (CHLORASEPTIC) 1 [place] MUCOUS MEMBRANE (TOPICAL MOUTH AND THROAT) q 2 H PRN phenol 1 [place] (CHLORASEPTIC) 1 [place] MUCOUS MEMBRANE (TOPICAL MOUTH AND THROAT) q [...] Junior, MD Clinical Associate Endocrine and Metabolism [place], Department of Endocrine Surgery [facility] 03-25-2023 Note HNO ID: [id number] Author: Marline Brito Jr., MD Service: ? [...] THROAT) q 2 H PRN phenol 1 [place] (CHLORASEPTIC) 1 [place] MUCOUS MEMBRANE (TOPICAL MOUTH AND THROAT) q 2 H PRN dextrose 5% in NaCl 0.45% with 20 mEq/L KCl iv infusion 75 mL/hr INTRAVENOUS CONTINUOUS acetaminophen 500 mg tab(s) (TYLENOL) 500 mg ORAL q 4 H PRN hstxdch-txletagxc-iwcmako D3 500 mg-5 mcg (200 unit) 1 tablet 1 tablet ORAL TID calcium carbonate 500 mg chewable tab(s) (TUMS) 500 mg ORAL q 1 H PRN benzocaine-menthol 1 [place] (CHLORASEPTIC) 1 [place] MUCOUS MEMBRANE (TOPICAL MOUTH AND THROAT) q 2 H PRN phenol 1 [place] (CHLORASEPTIC) 1 [place] MUCOUS MEMBRANE (TOPICAL MOUTH AND THROAT) q [...] Junior, MD Clinical Associate Endocrine and Metabolism [place], Department of Endocrine Surgery [facility] 03-25-2023 Note HNO ID: [id number] Author: Amrita Fischer APRN.LAUNDRY WORKER Service: ? 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 Dr Urbina increased the citalopram to 20 mg a day He also advised to change the Magnesium 250 mg to one twice a day. documented in this encounter [facility] 03-22-2023 History of Present illness Narrative Chief [...] is here today with her daughter and [id number]. Patient has been doing ok. Past medical [...] 65%, with mild diast dysf and 1+ UT. CARDIAC STRESS TEST 05/01/2017 negative CHOLECYSTECTOMY 1985 [...] Lymph 1.00 - 4.00 k/uL 1.59 1.57 [place]% % 9.9 11.0 Abs [place] <0.87 k/uL 0.96 (H) 0.95 (H) Eosin% [...] UA, A1c, CBC, Iron, Mg, B12, TSH Chnecho Urbina MD documented in this encounter [facility] 03-20-2023 Note HNO ID: [id number] Author: Marcell Gaines RT(R) Service: Nuclear Medicine [...] 12:28. PATIENT DISCHARGED TO: Ambulatory patient, left [place] department area. A Diagnostic radioactive procedure has taken place, with no further precautions necessary other than routine body substance precautions. More information regarding radiation safety can be found using this link: [email or web address] [email or web address] SIGNATURE: RT Lance(R) PATIENT NAME: Leonor Pal DATE: March 20, 2023 TIME: 12:58 PM PAGER/CONTACT #: [facility] 02-20-2023 History of Present illness Narrative Endocrinology Metabolism [place] [facility] Marge Hayes M.D. Section of Endocrine Surgery and Advanced Laparoscopic Surgery [address] [place] [address], [address] [address] ENDOCRINE SURGERY NEW CONSULTATION NAME: Leonor Pal [facility] NO: [id number] : 1940 Surgeon: Dr. Marge Hayes REFERRING PROVIDER: Chencho Urbina [address] [place] [address] The patient was referred by the above [...] 65%, with mild diast dysf and 1+ UT. CARDIAC STRESS TEST 05/01/2017 negative CHOLECYSTECTOMY 1985 [...] which included preparing to see the patient, gemj-yv-vdsy patient care, completing clinical documentation, obtaining and/or reviewing separately obtained history, performing a medically appropriate examination, counseling and educating the patient/family/caregiver, ordering medications, tests, or procedures, communicating with other HCPs (not separately reported), independently interpreting results (not separately reported), communicating results to the patient/family/caregiver, and care coordination (not separately reported). Sincerely, Marge Hayes MD 02/20/2023 CC: Chencho Urbina [address] [facility] [address] documented in this encounter [facility] 02-20-2023 Instructions Kannan Zepeda Ma - 02/20/2023 11:10 AM EDT Thank you for choosing the [facility] Department of Endocrinology, Diabetes and Metabolism. Did you know that you need to call 48 hours in advance of your scheduled visit, if you are unable to make your appointment? The Endocrinology and Metabolism [place] thanks you for your commitment, because patients not showing to their appointment results in a lost opportunity for patients to receive [facility] care at the [facility]. To Cancel an appointment, please choose one of the following: - Call the Appointment Call Center at [phone] - From [employer], Go to Appointments - Cancel Appts If cancelling, consider your need to reschedule to prevent further delays in your care. To Schedule an appointment, please choose one of the following: - Call the Appointment Call Center at [phone] - From [employer], Go to Appointments - Request an Appt documented in this encounter [facility] 12-17-2022 History of Present illness Narrative Jonny Suero MD Department of Orthopaedics Orthopaedics [address] [facility] [address] Dept: [phone] Dept December 17, 2022 CHIEF COMPLAINT: New [...] IMPRESSION: Severe degenerative changes of the fingers. Rag Sorter: PSCB Transcribe Date/Time: Nov 16 2022 5:24P [...] 65%, with mild diast dysf and 1+ UT. CARDIAC STRESS TEST 05/01/2017 negative CHOLECYSTECTOMY 1985 [...] physician via US mail. Elisa Doherty [address] [facility] [address] Chencho Urbina MD [address] [facility] [address] Jonny Suero MD documented in this encounter [facility] 11-23-2022 History of Present illness Narrative Chief [...] cancer 01/12/2019 Left nasal 12/[address] 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 CARDIAC STRESS TEST 05/01/2017 negative CHOLECYSTECTOMY 1985 [...] M20.002 - CONSULT TO ORTHOPAEDICS Elisa Doherty APRN.RN TRANSITION documented in this encounter [facility] 11-13-2022 History of Present illness Narrative [facility] Initial Visit Leonor Pal [facility]#: [id number] Date of Service: 11/13/2022 Primary Care Provider: Chencho Urbina MD [address] [facility] [address] The patient was referred by Chencho Urbina [...] 65%, with mild diast dysf and 1+ UT. CARDIAC STRESS TEST 05/01/2017 negative CHOLECYSTECTOMY 1985 [...] Disease w/o Stroke Event: Unruptured Aneurysm Modified Cromwell Score: Score: 0 NIH Stroke Scale: LOC: [...] MD November 13, 2022 CC Chencho Urbina [address] [place] [address] documented in this encounter [facility] 10-25-2022 History of Present illness Narrative Radiology [...] TIME: 4:03 PM documented in this encounter [facility] 10-22-2022 Miscellaneous Notes Patient notified and verbalized understanding Celia Aleman Cma Please let patient know her urine culture is positive. I have sent a prescription for an antibiotic. documented in this encounter [facility] 10-02-2022 Miscellaneous Notes Patient scheduled. ALICE Gallowya October 02, 2022 3:31 PM Patient notified and voiced understanding. Please schedule patient for US. Lana Schwartz MA Let patient know breathing test was normal US of neck arteries shows narrowing in both arteries are stable and minimal. The thyroid shows some of her nodules maybe larger and want to get a thyroid US for better evaluation. Order placed. documented in this encounter [facility] 09-28-2022 History of Present illness Narrative PULM FUNCTION SMARTBLOCK: Provider: Chencho Urbina MD Assisting Tech: DORY Chi Spirometry w/BD: 1 documented in this encounter [facility] 09-24-2022 Miscellaneous Notes Pt advised of Cassandra's message and instructions. Pt verbalizes understanding. Pt is going to try taking 1/2 tablet at bedtime for several days then will increase to 1 tablet. Venita Green LPN Ativan/lorazepam was given once but it was explained to her that it would not be a long term care administrator prescription. Celexa is used for anxiety as [...] bedtime. Please advise documented in this encounter [facility] 09-20-2022 Instructions Chencho Urbina MD - 09/20/2022 10:01 AM EDT Consider getting the shingrix vaccine for the prevention of shingles from a local pharmacy Consider getting a tetanus booster, Tdap at the health department. Please get magnesium oxide 250 mg and take one a day Please get labs one on or after 03/08/2023 prior to your next visit. documented in this encounter [facility] 09-20-2022 History of Present illness Narrative Medicare [...] 65%, with mild diast dysf and 1+ UT. CARDIAC STRESS TEST 05/01/2017 negative COLONOSCOP W/ [...] wishes: Yes I am willing to follow [place]'s advanced directives. Depression screen Patient with situational [...] 65%, with mild diast dysf and 1+ UT. CARDIAC STRESS TEST 05/01/2017 negative CHOLECYSTECTOMY Cholecystectomy [...] Lymph 1.00 - 4.00 k/uL 2.01 1.59 [place]% % 8.4 9.9 Abs [place] <0.87 k/uL 0.56 0.96 (H) Eosin% % [...] Negative Ketones, Urine Trace, Negative Negative Specific [place], Ur 1.005 - 1.030 1.017 Hemoglobin/Blood,Ur Negative, [...] diet of 1000 mg/day for under 50, 2965-1575 mg/day for 50+ - Follow up for [...] which included preparing to see the patient, rmbq-wz-ewkv patient care, completing clinical documentation, performing a medically appropriate examination, counseling and educating the patient/family/caregiver and ordering medications, tests, or procedures. Chencho Urbina MD documented in this encounter [facility] 08-31-2022 Miscellaneous Notes Pt notified of results & to repeat in a week, pt voiced understanding. Ana Lilia Langley LPN Let patient know her recent labs showed low sodium and elevated calcium. Would like for her to repeat these in a week. Orders placed. Will discuss others labs at her upcoming appt. documented in this encounter [facility] 07-25-2022 Instructions Cassandra Arshad PA-C - 07/25/2022 [...] you get home. documented in this encounter [facility] 07-25-2022 History of Present illness Narrative Chief [...] 65%, with mild diast dysf and 1+ UT. CARDIAC STRESS TEST 05/01/2017 negative CHOLECYSTECTOMY Cholecystectomy [...] Cassandra Arshad PA-C documented in this encounter [facility] 07-03-2022 Miscellaneous Notes noted Call placed to [...] Libia Genao RN documented in this encounter [facility] 06-27-2022 History of Present illness Narrative Chief [...] 65%, with mild diast dysf and 1+ UT. CARDIAC STRESS TEST 05/01/2017 negative CHOLECYSTECTOMY Cholecystectomy [...] immunization - ICD9: V03.89, ICD10: Z23 - PFIZER-[employer] COVID-19 BIVALENT BOOSTER VACCINE, AGE 12+ YR Cassandra Arshad PA-C documented in this encounter [facility] 03-15-2022 History of Present illness Narrative Chief [...] 65%, with mild diast dysf and 1+ UT. CARDIAC STRESS TEST 05/01/2017 negative CHOLECYSTECTOMY Cholecystectomy [...] Cassandra Arshad PA-C documented in this encounter [facility] 11-03-2021 Miscellaneous Notes Last refill 09/01/21 Qty: [...] patient. Angela Hernandez documented in this encounter [facility] 10-02-2021 History of Present illness Narrative Patient presents for suture removal per Dr Urbina. Removed 4 sutures from lower left neck. Wound well approximated and healing. Slight pink coloration from bandaid irritation noted. Tolerated procedure well. Pt alert and oriented. 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 Margins are clear. No further Tx needed. Will just monitor area. documented in this encounter [facility] 09-20-2021 Procedure note Procedure(s): SKIN LESION BIOPSY [...] Chencho Urbina MD documented in this encounter [facility] 09-20-2021 History of Present illness Narrative Chief [...] 65%, with mild diast dysf and 1+ UT. CARDIAC STRESS TEST 05/01/2017 negative CHOLECYSTECTOMY Cholecystectomy [...] Chencho Urbina MD documented in this encounter [facility] 09-06-2021 Miscellaneous Notes Patient was notified Abida Armstrong Ma Let patient know repeat potassium was ok. documented in this encounter [facility] 09-01-2021 Instructions Chencho Urbina MD - 09/01/2021 9:57 AM EDT Please get labs done on or after 02/23/2022 prior to your next visit. documented in this encounter [facility] 09-01-2021 History of Present illness Narrative Medicare [...] 65%, with mild diast dysf and 1+ UT. CARDIAC STRESS TEST 05/01/2017 negative COLONOSCOP W/ [...] wishes: Yes I am willing to follow [place]'s advanced directives. Depression screen She in the [...] 65%, with mild diast dysf and 1+ UT. CARDIAC STRESS TEST 05/01/2017 negative COLONOSCOP W/ [...] Lymph 1.00 - 4.00 k/uL 1.67 2.01 [place]% % 9.4 8.4 Abs [place] <0.87 k/uL 0.76 0.56 Eosin% % 2.5 [...] Negative Negative Ketones, Urine Negative Negative Specific [place], Ur 1.005 - 1.030 1.017 Hemoglobin/Blood,Ur Negative [...] diet of 1000 mg/day for under 50, 9109-3573 mg/day for 50+ - Follow up for [...] which included preparing to see the patient, tnhz-xy-znps patient care, completing clinical documentation, performing a medically appropriate examination, counseling and educating the patient/family/caregiver and ordering medications, tests, or procedures. Chencho Urbina MD documented in this encounter [facility] Evaluation note Diagnosis Medicare annual wellness visit, subsequent- Primary Routine general medical examination at a [facility] care facility Essential hypertension Unspecified [...] Other specified counseling [facility] Diagnosis Neoplasm of uncertain behavior of skin of neck- Primary Neoplasm of uncertain behavior of skin Encounter for medication refill Issue of repeat prescriptions Benign paroxysmal positional vertigo, unspecified laterality Squamous cell skin cancer Squamous cell carcinoma of skin, site unspecified [facility] Diagnosis Squamous cell skin cancer Squamous cell carcinoma of skin, site unspecified [facility] Diagnosis Squamous cell skin cancer- Primary Squamous cell carcinoma of skin, site unspecified [facility] Diagnosis Essential hypertension- Primary Unspecified essential [...] single bacterial disease [facility] Diagnosis Situational stress- Primary Other psychological or physical stress, not elsewhere classified Grief reaction Adjustment disorder with depressed mood Encounter for immunization Need for other specified prophylactic vaccination against single bacterial disease [facility] Situational stress- Primary Other psychological or physical stress, not elsewhere classified Grief reaction Adjustment disorder with depressed mood [facility] Diagnosis Hyponatremia- Primary Hyposmolality and/or hyponatremia Hypercalcemia [facility] Diagnosis Medicare annual wellness visit, subsequent- [...] hazards to health [facility] Diagnosis SOB (shortness of breath) Shortness of breath Second hand smoke exposure Other specified personal history presenting hazards to health [facility] Diagnosis Carotid stenosis, asymptomatic, bilateral Thyroid nodule Nontoxic uninodular goiter [facility] Diagnosis Urinary tract infection without hematuria, site unspecified- Primary [facility] Diagnosis Nonruptured cerebral aneurysm- Primary Cerebral aneurysm, nonruptured Hypertension, unspecified type [facility] Diagnosis Unspecified deformity of left finger(s)- Primary [facility] Diagnosis Primary osteoarthritis of both hands- Primary Unspecified deformity of left finger(s) [facility] Diagnosis Nontoxic multinodular goiter- Primary Neck mass Swelling, mass, or lump in head and neck Hyperparathyroidism (HCC) Hyperparathyroidism, unspecified [facility] Diagnosis Essential hypertension- Primary Unspecified essential [...] (HCC) Hyperparathyroidism, unspecified [facility] Diagnosis Hyperparathyroidism (HCC)- Primary Hyperparathyroidism, unspecified [facility] Diagnosis Hyperparathyroidism (HCC)- Primary Hyperparathyroidism, unspecified [facility]* Diagnosis Neck mass Swelling, mass, or lump in head and neck [facility] Diagnosis Primary hyperparathyroidism (HCC)- Primary Primary hyperparathyroidism Age-related osteoporosis without current pathological fracture Senile osteoporosis [facility] Diagnosis Nonruptured cerebral aneurysm- Primary Cerebral aneurysm, nonruptured [facility] Diagnosis Medicare annual wellness visit, subsequent- [...] stenosis, asymptomatic, bilateral [facility] Diagnosis Primary hyperparathyroidism (HCC)- Primary Primary hyperparathyroidism Age-related osteoporosis without current pathological fracture Senile osteoporosis [facility]* Diagnosis Grief reaction Adjustment disorder with depressed mood Benign paroxysmal positional vertigo, unspecified laterality [facility] Diagnosis Essential hypertension- Primary Unspecified essential hypertension Stage 3b chronic kidney disease (HCC) Hypomagnesemia Disorders of magnesium metabolism Elevated fasting blood sugar Impaired fasting glucose Mixed hyperlipidemia [facility]* Diagnosis Nonruptured cerebral aneurysm Cerebral aneurysm, nonruptured [facility] Diagnosis Primary hyperparathyroidism (HCC)- Primary Primary hyperparathyroidism Age-related osteoporosis without current pathological fracture Senile osteoporosis documented in this encounter [facility] note* Diagnosis Nonruptured cerebral aneurysm- Primary Cerebral aneurysm, 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 [facility]* Diagnosis Pre-operative examination- Primary Preoperative examination, [...] without disruption of pelvic ring, initial encounter ([facility]) [facility]* Diagnosis Pre-operative examination- Primary Preoperative examination, [...] unspecified single disease [facility] Diagnosis Swelling of left middle finger [...] influencing health status [facility]* Diagnosis Pre-operative examination- Primary Preoperative examination, [...] Hyposmolality and/or hyponatremia [facility] Diagnosis Pre-operative examination- Primary Preoperative examination, [...] without disruption of pelvic ring, initial encounter ([facility])- Primary documented in this encounter [facility] note* Diagnosis Pre-operative examination- Primary Preoperative examination, [...] subsequent encounter- Primary [facility] this [facility]* Diagnosis Pre-operative examination- Primary Preoperative examination, [...] Hypokalemia- Primary Hypopotassemia documented in this encounter [facility]* Diagnosis Pre-operative examination- Primary Preoperative examination, [...] fracture Senile osteoporosis [facility]* Diagnosis Pre-operative examination- Primary Preoperative examination, [...] initial encounter (HCC) documented in this encounter [facility] note* Diagnosis Pre-operative examination- Primary Preoperative examination, [...] of other medications [facility] Diagnosis Pre-operative examination- Primary Preoperative examination, [...] without disruption of pelvic ring, initial encounter ([facility]) documented [facility] this encounter [facility]* Diagnosis Pre-operative examination- Primary Preoperative examination, [...] involving urinary system [facility] Diagnosis Pre-operative examination- Primary Preoperative examination, [...] Unspecified essential hypertension [facility] Diagnosis Pre-operative examination- Primary Preoperative examination, [...] Unspecified sinusitis (chronic) [facility] Diagnosis Pre-operative examination- Primary Preoperative examination, [...] hypertension Urinary frequency [facility] Diagnosis Pre-operative examination- Primary Preoperative examination, [...] Primary Urinary frequency [facility] Diagnosis Pre-operative examination- Primary Preoperative examination, [...] hematuria Urinary frequency [facility] Diagnosis Pre-operative examination- Primary Preoperative examination, [...] Microscopic hematuria- Primary documented in this encounter [facility]* Diagnosis Pre-operative examination- Primary Preoperative examination, [...] muscle Tension headache [facility] this [facility]* Diagnosis Pre-operative examination- Primary Preoperative examination, [...] Urgency of urination [facility] Diagnosis Pre-operative examination- Primary Preoperative examination, [...] of both knees [facility] Diagnosis Pre-operative examination- Primary Preoperative examination, [...] without prior episode [facility] Diagnosis Pre-operative examination- Primary Preoperative examination, [...] with depressed mood [facility] Diagnosis Pre-operative examination- Primary Preoperative examination, [...] legs syndrome (RLS) [facility] noteNo assessment information availableWNewark Hospital Work Phone: Reason for referral (narrative)* Outpatient Procedure (Routine) - Authorized Specialty Diagnoses / Procedures Referred By Yazmin macedo Referred To Contact [facility] Diagnoses SOB (shortness of breath) Second hand smoke exposure Procedures SPIROMETRY - BASELINE AND POST DILATOR BRNCDILAT RSPSE SPMTRY PRE&POST-BRNCDILAT ADMN Chencho Urbina MD [address] [place] [address] [facility] [place] [address] [place] [address] Referral ID Status Reason Start Date Expiration Date Visits Requested Visits Authorized [id number] Authorized Auto-Generat ed Referral 09/20/2022 10/20/2023 1 1 * Outpatient Procedure (Routine) - Authorized Specialty Diagnoses / Procedures Referred By Yazmin macedo Referred To Contact [facility] Diagnoses Carotid stenosis, asymptomatic, bilateral Procedures US CAROTID ARTERIES ASIM VAS LAB DUPLEX SCAN EXTRACRANIAL ART COMPL BI STUDY Chencho Urbina MD [address] [place] [address] [facility] [place] [address] [place] [address] Referral ID Status Reason Start Date Expiration Date Visits Requested Visits Authorized [id number] Authorized Auto-Generat ed Referral 09/20/2022 09/20/2023 1 1 [facility] for referral (narrative)* Diagnostic Procedure Only (Routine) - Authorized Specialty Diagnoses / Procedures Referred By Contac t Referred To Contact US IMAGING Diagnoses Thyroid nodule Procedures US THYROID/PARATHYROID US SOFT TISSUE HEAD & NECK REAL TIME IMGE DOCM Chencho Urbina MD [address] [place] [address] Us Imaging Referral ID Status Reason Start Date Expiration Date Visits Requested Visits Authorized [id number] Authorized Auto-Generat ed Referral 09/30/2022 10/30/2023 1 1 [facility] for referral (narrative)* Diagnostic Procedure Only (Routine) - Closed Specialty Diagnoses / Procedures Referred By Contac t Referred To Contact XR IMAGING Diagnoses Hyperparathyroidism (HCC) Procedures DXA-AXIAL SKELETON WITH VFA DXA BONE DENSITY [place]UD[place] [address] [place] [address] Xr Imaging [id number] Referral ID Status Reason Start Date Expiration Date V isits Requested Visits Authorized [id number] Closed Auto-Generate d Referral 03/07/2023 04/05/2024 1 1 [facility] for referral (narrative)* Diagnostic Procedure Only (Routine) - Closed Specialty Diagnoses / Procedures Referred By Contac t Referred To Contact XR IMAGING Diagnoses Swelling of left middle finger Pain involving joint of finger of right hand Procedures XR HAND GENERAL 3V PA/LAT/OBL BILATERAL RADEX HAND MINIMUM 3 VIEWS Chencho Urbina MD [address] [place] [address] [place] [address] Referral ID Status Reason Start Date Expiration Date V isits Requested Visits Authorized [id number] Closed Auto-Generate d Referral 11/15/2022 12/15/2023 1 1 [facility] for referral (narrative)* Diagnostic Procedure Only (Routine) - New Request Specialty Diagnoses / Procedures Referred By Contac t Referred To Contact XR IMAGING Diagnoses Multiple closed fractures of pelvis without disruption of pelvic ring, initial encounter ([facility]) Procedures XR PELVIS 2V INLET/OUTLET RADIOLOGIC EXAMINATION PELVIS 1/2 VIEWS Jonny Suero MD [address] [place] [id number] [place] [address] Referral ID Status Reason Start Date Expiration Date Visits Requested Visits Authorized [id number] New Request Auto-Generat ed Referral 03/10/2024 04/09/2025 1 1 [facility] for referral (narrative)* Diagnostic Procedure Only (Routine) - Authorized Specialty Diagnoses / Procedures Referred By Contac t Referred To Contact US IMAGING Diagnoses Microscopic hematuria Urinary frequency Procedures US KIDNEY/BLADDER US RETROPERITONEAL REAL TIME W/IMAGE COMPLETE Cassandra Arshad PA-C [address] [place] [address] [place] [address] Referral ID Status Reason Start Date Expiration Date Visits Requested Visits Authorized [id number] Authorized Auto-Generat ed Referral 06/18/2024 07/18/2025 1 1 [facility] for referral (narrative)No reason for referral information availableWNewark Hospital Work Phone: Reason for visit Narrative* Diagnostic Procedure Only (Routine) - Closed Specialty Diagnoses / Procedures Referred By Contac t Referred To Contact XR IMAGING Diagnoses Swelling of left middle finger Pain involving joint of finger of right hand Procedures XR HAND GENERAL 3V PA/LAT/OBL BILATERAL RADEX HAND MINIMUM 3 VIEWS Chencho Urbina MD [address] [place] [address] [place] [address] Referral ID Status Reason Start Date Expiration Date V isits Requested Visits Authorized [id number] Closed Auto-Generate d Referral 11/15/2022 12/15/2023 1 1 [facility] for visit Narrative* Diagnostic Procedure Only (Routine) - Closed Specialty Diagnoses / Procedures Referred By Contac t Referred To Contact XR IMAGING Diagnoses Multiple closed fractures of pelvis without disruption of pelvic ring, initial encounter ([facility]) Procedures XR PELVIS 2V INLET/OUTLET RADIOLOGIC EXAMINATION PELVIS 1/2 VIEWS Jonny Suero MD [address] [place] [address] [place] [address] Referral ID Status Reason Start Date Expiration Date V isits Requested Visits Authorized [id number] Closed Auto-Generate d Referral 03/10/2024 04/09/2025 1 1 [facility] for visit Narrative* Diagnostic Procedure Only (Routine) - Closed Specialty Diagnoses / Procedures Referred By Contac t Referred To Contact XR IMAGING Diagnoses Chronic pain of both knees Procedures XR KNEE GENERAL 4V AP BOTH/PA BOTH/LAT/MERC BILATERAL RADIOLOGIC EXAM KNEE COMPLETE 4/MORE VIEWS Chencho Urbina MD [address] [place] [address] Phone: tel: fax: [place] [address] Referral ID Status Reason Start Date Expiration Date V isits Requested Visits Authorized [id number] Closed Auto-Generate d Referral 09/02/2024 10/02/2025 1 1 [facility] Advance Directives No Advanced Directives Records FoundDocuments on File Type Date Recorded 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 Advance Directive(s) 07/13/2016 7:02 AM Advance Directive(s) 07/10/2016 12:11 PM Advance Directive(s) 01/08/2014 6:14 AM Advance Directive(s) 01/08/2014 6:23 AM Documents on File Type Date Recorded 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 Advance Directive(s) 01/08/2014 6:14 AM Advance Directive(s) 01/08/2014 6:23 AM Documents on File Type Date Recorded 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 Advance Directive(s) 01/08/2014 6:14 AM Advance Directive(s) 01/08/2014 6:23 AM Documents on File Type Date Recorded 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 Advance Directive(s) 11/21/2022 8:52 AM Advance Directive(s) 01/08/2014 6:23 AM Documents on File Type Date Recorded 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 Advance Directive(s) 11/21/2022 8:52 AM Advance Directive(s) 01/08/2014 6:23 AM Documents on File Type Date Recorded 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 Advance Directive(s) 04/27/2024 2:55 PM Documents on File Type Date Recorded 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 Advance Directive(s) 04/27/2024 2:55 PM Advance Directive Response Recorded Date/ Time Advance Directives Yes July 8:16am Reason for Referral Specialty Diagnoses / Procedures Referred By Contac t Referred To Contact MR IMAGING Diagnoses Nonruptured cerebral aneurysm Procedures MRA BRAIN WO IVCON MRA, HEAD W/O CONTRAST Pablo Keyes MD [address] [place] [address] Mr Imaging Referral ID Status Reason Start Date Expiration Date Visits Requested Visits Authorized [id number] Authorized Auto-Generat ed Referral 05/15/2023 12/13/2023 1 1 Specialty Diagnoses / Procedures Referred By Contac t Referred To Contact Orthopedics Diagnoses Unspecified deformity of left finger(s) Procedures CONSULT TO ORTHOPAEDICS OFFICE/OUTPATIENT [facility] 60-74 MINUTES Elisa Doherty APRN.RN TRANSITION [address] [place] [address] Referral ID Status Reason Start Date Expiration Date Visits Requested Visits Authorized [id number] Authorized PCP Requested Referral 11/23/2022 11/23/2023 1 1 Specialty Diagnoses / Procedures Referred By Contac t Referred To Contact CT IMAGING Diagnoses Neck mass Procedures CT NECK SOFT TISSUE W IVCON CT SOFT TISSUE NECK W/CONTRAST MATERIAL Cassandra Arshad PA-C [address] [place] [address] Ct [facility] [place] [address] Referral ID Status Reason Start Date Expiration Date V isits Requested Visits Authorized [id number] Closed Auto-Generate d Referral 10/19/2022 11/18/2023 1 1 Specialty Diagnoses / Procedures Referred By Contac t Referred To Contact CT IMAGING Diagnoses Nonruptured cerebral aneurysm Procedures CTA NECK W IVCON CT ANGIOGRAPHY NECK W/CONTRAST/NONCONTRAST Kierra Alfaro MD [address] [place] [address] Ct [facility] [place] [address] Referral ID Status Reason Start Date Expiration Date Visits Requested Visits Authorized [id number] Authorized Auto-Generat ed Referral 11/15/2023 06/14/2024 1 1 Specialty Diagnoses / Procedures Referred By Contac t Referred To Contact CT IMAGING Diagnoses Nonruptured cerebral aneurysm Procedures CTA HEAD W IVCON CT ANGIOGRAPHY HEAD W/CONTRAST/NONCONTRAST Kierra Alfaro MD [address] [place] [address] Ct [facility] [place] [address] Referral ID Status Reason Start Date Expiration Date Visits Requested Visits Authorized [id number] Authorized Auto-Generat ed Referral 11/15/2023 06/14/2024 1 1 Specialty Diagnoses / Procedures Referred By Contac t Referred To Contact Ent - Otolaryngology Diagnoses Bilateral hearing loss, unspecified hearing loss type Procedures CONSULT TO ENT OFFICE/OUTPATIENT [facility] 60 MINUTES Cassandra Arshad PA-C [address] [place] [address] Referral ID Status Reason Start Date Expiration Date Visits Requested Visits Authorized [id number] Authorized PCP Requested Referral 09/24/2023 09/23/2024 1 1 Referral ID Status Reason Start Date Expiration Date V isits Requested Visits Authorized [id number] Closed Auto-Generate d Referral 11/15/2023 06/14/2024 1 1 Referral ID Status Reason Start Date Expiration Date V isits Requested Visits Authorized [id number] Closed Auto-Generate d Referral 11/15/2023 06/14/2024 1 1 Specialty Diagnoses / Procedures Referred By Contac t Referred To Contact Vascular Medicine Diagnoses 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) Procedures CONSULT TO VASCULAR MEDICINE OFFICE/OUTPATIENT [facility] 60 MINUTES Kierra Alfaro MD [address] [place] [address] Referral ID Status Reason Start Date Expiration Date Visits Requested Visits Authorized [id number] Authorized PCP Requested Referral 11/28/2023 11/27/2024 1 1 Specialty Diagnoses / Procedures Referred By Contac t Referred To Contact CT IMAGING Diagnoses 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) Procedures CTA NECK W IVCON CT ANGIOGRAPHY NECK W/CONTRAST/NONCONTRAST Kierra Alfaro MD [address] [place] [address] [address] [facility] [place] [address] Referral ID Status Reason Start Date Expiration Date Visits Requested Visits Authorized [id number] New Request Auto-Generat ed Referral 11/27/2024 12/27/2024 1 1 Referral ID Status Reason Start Date Expiration Date Visits Requested Visits Authorized [id number] New Request Auto-Generat ed Referral 11/27/2024 12/27/2024 1 1 Specialty Diagnoses / Procedures Referred By Contac t Referred To Contact Orthopedics Diagnoses Multiple closed fractures of pelvis without disruption of pelvic ring, initial encounter (HCC) Procedures CONSULT TO ORTHOPAEDICS OFFICE/OUTPATIENT [facility] 60 MINUTES Chencho Urbina MD [facility] [place] [address] Referral ID Status Reason Start Date Expiration Date Visits Requested Visits Authorized [id number] Authorized PCP Requested Referral 02/20/2024 02/19/2025 1 1 Specialty Diagnoses / Procedures Referred By Contac t Referred To Contact Nephrology Diagnoses Hyponatremia Procedures CONSULT TO NEPHROLOGY OFFICE/OUTPATIENT [facility] 60 MINUTES Chencho Urbina MD [address] [place] [address] Referral ID Status Reason Start Date Expiration Date Visits Requested Visits Authorized [id number] Authorized PCP Requested Referral 02/20/2024 02/19/2025 1 1 Summary Purpose Family History No Family History Records Found Relationship Condition Age at Onset Recorded Date/T barbara Not Specified Coronary artery disease Unknown Malignant neoplasm Unknown father Myocardial infarction 48 brother Cerebrovascular accident (CVA) Unknown mother Cerebrovascular accident (CVA) Unknown Chief Complaint and Reason for Visit Chief Complaint Admit Date LONGTERM LAB WORK September 28, 2024 9 :24am LONGTERM LAB WORK October 21, 2024 5:0 0am Additional Source Comments Source Comments (unrecognize d section and content) In the event this informatio n is protected by the Federal Confidentiality of Alcohol and Drug Abuse Patient Records regulations: The Federal rules restrict any use of the information to criminally investigate or prosecute any alcohol or drug abuse patient.[facility] the event this information is protected by the Federal Confidentiality of Alcohol and Drug Abuse Patient Records regulations: The Federal rules restrict any use of the information to criminally investigate or prosecute any alcohol or drug abuse patient.[facility] the event this information is protected by the Federal Confidentiality of Alcohol and Drug Abuse Patient Records regulations: The Federal rules restrict any use of the information to criminally investigate or prosecute any alcohol or drug abuse patient.[facility] HospitalIn the event this information is protected by the Federal Confidentiality of Alcohol and Drug Abuse Patient Records regulations: The Federal rules restrict any use of the information to criminally investigate or prosecute any alcohol or drug abuse patient.[facility] the event this information is protected by the Federal Confidentiality of Alcohol and Drug Abuse Patient Records regulations: The Federal rules restrict any use of the information to criminally investigate or prosecute any alcohol or drug abuse patient.[facility] HospitalIn the event this information is protected by the Federal Confidentiality of Alcohol and Drug Abuse Patient Records regulations: The Federal rules restrict any use of the information to criminally investigate or prosecute any alcohol or drug abuse patient.[facility] HospitalIn the event this information is protected by the Federal Confidentiality of Alcohol and Drug Abuse Patient Records regulations: The Federal rules restrict any use of the information to criminally investigate or prosecute any alcohol or drug abuse patient.[facility] Hospital[facility] the event this information is protected by the Federal Confidentiality of Alcohol and Drug Abuse Patient Records regulations: The Federal rules restrict any use of the information to criminally investigate or prosecute any alcohol or drug abuse patient.[facility] HospitalIn the event this information is protected by the Federal Confidentiality of Alcohol and Drug Abuse Patient Records regulations: The Federal rules restrict any use of the information to criminally investigate or prosecute any alcohol or drug abuse patient.[facility] HospitalIn the event this information is protected by the Federal Confidentiality of Alcohol and Drug Abuse Patient Records regulations: The Federal rules restrict any use of the information to criminally investigate or prosecute any alcohol or drug abuse patient.[facility] HospitalIn the event this information is protected by the Federal Confidentiality of Alcohol and Drug Abuse Patient Records regulations: The Federal rules restrict any use of the information to criminally investigate or prosecute any alcohol or drug abuse patient.[facility] HospitalIn the event this information is protected by the Federal Confidentiality of Alcohol and Drug Abuse Patient Records regulations: The Federal rules restrict any use of the information to criminally investigate or prosecute any alcohol or drug abuse patient.[facility] HospitalIn the event this information is protected by the Federal Confidentiality of Alcohol and Drug Abuse Patient Records regulations: The Federal rules restrict any use of the information to criminally investigate or prosecute any alcohol or drug abuse patient.[facility] HospitalIn the event this information is protected by the Federal Confidentiality of Alcohol and Drug Abuse Patient Records regulations: The Federal rules restrict any use of the information to criminally investigate or prosecute any alcohol or drug abuse patient.[facility] HospitalIn the event this information is protected by the Federal Confidentiality of Alcohol and Drug Abuse Patient Records regulations: The Federal rules restrict any use of the information to criminally investigate or prosecute any alcohol or drug abuse patient.[facility] HospitalIn the event this information is protected by the Federal Confidentiality of Alcohol and Drug Abuse Patient Records regulations: The Federal rules restrict any use of the information to criminally investigate or prosecute any alcohol or drug abuse patient.[facility] HospitalIn the event this information is protected by the Federal Confidentiality of Alcohol and Drug Abuse Patient Records regulations: The Federal rules restrict any use of the information to criminally investigate or prosecute any alcohol or drug abuse patient.[facility] HospitalIn the event this information is protected by the Federal Confidentiality of Alcohol and Drug Abuse Patient Records regulations: The Federal rules restrict any use of the information to criminally investigate or prosecute any alcohol or drug abuse patient.[facility] HospitalIn the event this information is protected by the Federal Confidentiality of Alcohol and Drug Abuse Patient Records regulations: The Federal rules restrict any use of the information to criminally investigate or prosecute any alcohol or drug abuse patient.[facility] HospitalIn the event this information is protected by the Federal Confidentiality of Alcohol and Drug Abuse Patient Records regulations: The Federal rules restrict any use of the information to criminally investigate or prosecute any alcohol or drug abuse patient.[facility] HospitalIn the event this information is protected by the Federal Confidentiality of Alcohol and Drug Abuse Patient Records regulations: The Federal rules restrict any use of the information to criminally investigate or prosecute any alcohol or drug abuse patient.[facility] HospitalIn the event this information is protected by the Federal Confidentiality of Alcohol and Drug Abuse Patient Records regulations: The Federal rules restrict any use of the information to criminally investigate or prosecute any alcohol or drug abuse patient.[facility] HospitalIn the event this information is protected by the Federal Confidentiality of Alcohol and Drug Abuse Patient Records regulations: The Federal rules restrict any use of the information to criminally investigate or prosecute any alcohol or drug abuse patient.[facility] HospitalIn the event this information is protected by the Federal Confidentiality of Alcohol and Drug Abuse Patient Records regulations: The Federal rules restrict any use of the information to criminally investigate or prosecute any alcohol or drug abuse patient.[facility] HospitalIn the event this information is protected by the Federal Confidentiality of Alcohol and Drug Abuse Patient Records regulations: The Federal rules restrict any use of the information to criminally investigate or prosecute any alcohol or drug abuse patient.[facility] HospitalIn the event this information is protected by the Federal Confidentiality of Alcohol and Drug Abuse Patient Records regulations: The Federal rules restrict any use of the information to criminally investigate or prosecute any alcohol or drug abuse patient.[facility] [facility] HospitalIn the event this information is protected by the Federal Confidentiality of Alcohol and Drug Abuse Patient Records regulations: The Federal rules restrict any use of the information to criminally investigate or prosecute any alcohol or drug abuse patient.[facility] HospitalIn the event this information is protected by the Federal Confidentiality of Alcohol and Drug Abuse Patient Records regulations: The Federal rules restrict any use of the information to criminally investigate or prosecute any alcohol or drug abuse patient.[facility] HospitalIn the event this information is protected by the Federal Confidentiality of Alcohol and Drug Abuse Patient Records regulations: The Federal rules restrict any use of the information to criminally investigate or prosecute any alcohol or drug abuse patient.[facility] HospitalIn the event this information is protected by the Federal Confidentiality of Alcohol and Drug Abuse Patient Records regulations: The Federal rules restrict any use of the information to criminally investigate or prosecute any alcohol or drug abuse patient.[facility] HospitalIn the event this information is protected by the Federal Confidentiality of Alcohol and Drug Abuse Patient Records regulations: The Federal rules restrict any use of the information to criminally investigate or prosecute any alcohol or drug abuse patient.[facility] HospitalIn the event this information is protected by the Federal Confidentiality of Alcohol and Drug Abuse Patient Records regulations: The Federal rules restrict any use of the information to criminally investigate or prosecute any alcohol or drug abuse patient.[facility] HospitalIn the event this information is protected by the Federal Confidentiality of Alcohol and Drug Abuse Patient Records regulations: The Federal rules restrict any use of the information to criminally investigate or prosecute any alcohol or drug abuse patient.[facility] HospitalIn the event this information is protected by the Federal Confidentiality of Alcohol and Drug Abuse Patient Records regulations: The Federal rules restrict any use of the information to criminally investigate or prosecute any alcohol or drug abuse patient.[facility] HospitalIn the event this information is protected by the Federal Confidentiality of Alcohol and Drug Abuse Patient Records regulations: The Federal rules restrict any use of the information to criminally investigate or prosecute any alcohol or drug abuse patient.[facility] HospitalIn the event this information is protected by the Federal Confidentiality of Alcohol and Drug Abuse Patient Records regulations: The Federal rules restrict any use of the information to criminally investigate or prosecute any alcohol or drug abuse patient.[facility] HospitalIn the event this information is protected by the Federal Confidentiality of Alcohol and Drug Abuse Patient Records regulations: The Federal rules restrict any use of the information to criminally investigate or prosecute any alcohol or drug abuse patient.[facility] HospitalIn the event this information is protected by the Federal Confidentiality of Alcohol and Drug Abuse Patient Records regulations: The Federal rules restrict any use of the information to criminally investigate or prosecute any alcohol or drug abuse patient.[facility] HospitalIn the event this information is protected by the Federal Confidentiality of Alcohol and Drug Abuse Patient Records regulations: The Federal rules restrict any use of the information to criminally investigate or prosecute any alcohol or drug abuse patient.[facility] HospitalIn the event this information is protected by the Federal Confidentiality of Alcohol and Drug Abuse Patient Records regulations: The Federal rules restrict any use of the information to criminally investigate or prosecute any alcohol or drug abuse patient.[facility] HospitalIn the event this information is protected by the Federal Confidentiality of Alcohol and Drug Abuse Patient Records regulations: The Federal rules restrict any use of the information to criminally investigate or prosecute any alcohol or drug abuse patient.[facility] HospitalIn the event this information is protected by the Federal Confidentiality of Alcohol and Drug Abuse Patient Records regulations: The Federal rules restrict any use of the information to criminally investigate or prosecute any alcohol or drug abuse patient.[facility] HospitalIn the event this information is protected by the Federal Confidentiality of Alcohol and Drug Abuse Patient Records regulations: The Federal rules restrict any use of the information to criminally investigate or prosecute any alcohol or drug abuse patient.[facility] HospitalIn the event this information is protected by the Federal Confidentiality of Alcohol and Drug Abuse Patient Records regulations: The Federal rules restrict any use of the information to criminally investigate or prosecute any alcohol or drug abuse patient.[facility] HospitalIn the event this information is protected by the Federal Confidentiality of Alcohol and Drug Abuse Patient Records regulations: The Federal rules restrict any use of the information to criminally investigate or prosecute any alcohol or drug abuse patient.[facility] HospitalIn the event this information is protected by the Federal Confidentiality of Alcohol and Drug Abuse Patient Records regulations: The Federal rules restrict any use of the information to criminally investigate or prosecute any alcohol or drug abuse patient.[facility] HospitalIn the event this information is protected by the Federal Confidentiality of Alcohol and Drug Abuse Patient Records regulations: The Federal rules restrict any use of the information to criminally investigate or prosecute any alcohol or drug abuse patient.[facility] HospitalIn the event this information is protected by the Federal Confidentiality of Alcohol and Drug Abuse Patient Records regulations: The Federal rules restrict any use of the information to criminally investigate or prosecute any alcohol or drug abuse patient.[facility] HospitalIn the event this information is protected by the Federal Confidentiality of Alcohol and Drug Abuse Patient Records regulations: The Federal rules restrict any use of the information to criminally investigate or prosecute any alcohol or drug abuse patient.[facility] HospitalIn the event this information is protected by the Federal Confidentiality of Alcohol and Drug Abuse Patient Records regulations: The Federal rules restrict any use of the information to criminally investigate or prosecute any alcohol or drug abuse patient.[facility] HospitalIn the event this information is protected by the Federal Confidentiality of Alcohol and Drug Abuse Patient Records regulations: The Federal rules restrict any use of the information to criminally investigate or prosecute any alcohol or drug abuse patient.[facility] HospitalIn the event this information is protected by the Federal Confidentiality of Alcohol and Drug Abuse Patient Records regulations: The Federal rules restrict any use of the information to criminally investigate or prosecute any alcohol or drug abuse patient.[facility] HospitalIn the event this information is protected by the Federal Confidentiality of Alcohol and Drug Abuse Patient Records regulations: The Federal rules restrict any use of the information to criminally investigate or prosecute any alcohol or drug abuse patient.[facility] HospitalIn the event this information is protected by the Federal Confidentiality of Alcohol and Drug Abuse Patient Records regulations: The Federal rules restrict any use of the information to criminally investigate or prosecute any alcohol or drug abuse patient.[facility] HospitalIn the event this information is protected by the Federal Confidentiality of Alcohol and Drug Abuse Patient Records regulations: The Federal rules restrict any use of the information to criminally investigate or prosecute any alcohol or drug abuse patient.[facility] HospitalIn the event this information is protected by the Federal Confidentiality of Alcohol and Drug Abuse Patient Records regulations: The Federal rules restrict any use of the information to criminally investigate or prosecute any alcohol or drug abuse patient.[facility] HospitalIn the event this information is protected by the Federal Confidentiality of Alcohol and Drug Abuse Patient Records regulations: The Federal rules restrict any use of the information to criminally investigate or prosecute any alcohol or drug abuse patient.[facility] HospitalIn the event this information is protected by the Federal Confidentiality of Alcohol and Drug Abuse Patient Records regulations: The Federal rules restrict any use of the information to criminally investigate or prosecute any alcohol or drug abuse patient.[facility] HospitalIn the event this information is protected by the Federal Confidentiality of Alcohol and Drug Abuse Patient Records regulations: The Federal rules restrict any use of the information to criminally investigate or prosecute any alcohol or drug abuse patient.[facility] HospitalIn the event this information is protected by the Federal Confidentiality of Alcohol and Drug Abuse Patient Records regulations: The Federal rules restrict any use of the information to criminally investigate or prosecute any alcohol or drug abuse patient.[facility] HospitalIn the event this information is protected by the Federal Confidentiality of Alcohol and Drug Abuse Patient Records regulations: The Federal rules restrict any use of the information to criminally investigate or prosecute any alcohol or drug abuse patient.[facility] HospitalIn the event this information is protected by the Federal Confidentiality of Alcohol and Drug Abuse Patient Records regulations: The Federal rules restrict any use of the information to criminally investigate or prosecute any alcohol or drug abuse patient.[facility] HospitalIn the event this information is protected by the Federal Confidentiality of Alcohol and Drug Abuse Patient Records regulations: The Federal rules restrict any use of the information to criminally investigate or prosecute any alcohol or drug abuse patient.[facility] HospitalIn the event this information is protected by the Federal Confidentiality of Alcohol and Drug Abuse Patient Records regulations: The Federal rules restrict any use of the information to criminally investigate or prosecute any alcohol or drug abuse patient.[facility] HospitalIn the event this information is protected by the Federal Confidentiality of Alcohol and Drug Abuse Patient Records regulations: The Federal rules restrict any use of the information to criminally investigate or prosecute any alcohol or drug abuse patient.[facility] HospitalIn the event this information is protected by the Federal Confidentiality of Alcohol and Drug Abuse Patient Records regulations: The Federal rules restrict any use of the information to criminally investigate or prosecute any alcohol or drug abuse patient.[facility] HospitalIn the event this information is protected by the Federal Confidentiality of Alcohol and Drug Abuse Patient Records regulations: The Federal rules restrict any use of the information to criminally investigate or prosecute any alcohol or drug abuse patient.[facility] HospitalIn the event this information is protected by the Federal Confidentiality of Alcohol and Drug Abuse Patient Records regulations: The Federal rules restrict any use of the information to criminally investigate or prosecute any alcohol or drug abuse patient.[facility] HospitalIn the event this information is protected by the Federal Confidentiality of Alcohol and Drug Abuse Patient Records regulations: The Federal rules restrict any use of the information to criminally investigate or prosecute any alcohol or drug abuse patient.[facility] HospitalIn the event this information is protected by the Federal Confidentiality of Alcohol and Drug Abuse Patient Records regulations: The Federal rules restrict any use of the information to criminally investigate or prosecute any alcohol or drug abuse patient.[facility] HospitalIn the event this information is protected by the Federal Confidentiality of Alcohol and Drug Abuse Patient Records regulations: The Federal rules restrict any use of the information to criminally investigate or prosecute any alcohol or drug abuse patient.[facility] HospitalIn the event this information is protected by the Federal Confidentiality of Alcohol and Drug Abuse Patient Records regulations: The Federal rules restrict any use of the information to criminally investigate or prosecute any alcohol or drug abuse patient.[facility] HospitalIn the event this information is protected by the Federal Confidentiality of Alcohol and Drug Abuse Patient Records regulations: The Federal rules restrict any use of the information to criminally investigate or prosecute any alcohol or drug abuse patient.[facility] HospitalIn the event this information is protected by the Federal Confidentiality of Alcohol and Drug Abuse Patient Records regulations: The Federal rules restrict any use of the information to criminally investigate or prosecute any alcohol or drug abuse patient.[facility] HospitalIn the event this information is protected by the Federal Confidentiality of Alcohol and Drug Abuse Patient Records regulations: The Federal rules restrict any use of the information to criminally investigate or prosecute any alcohol or drug abuse patient.[facility] HospitalIn the event this information is protected by the Federal Confidentiality of Alcohol and Drug Abuse Patient Records regulations: The Federal rules restrict any use of the information to criminally investigate or prosecute any alcohol or drug abuse patient.[facility] HospitalIn the event this information is protected by the Federal Confidentiality of Alcohol and Drug Abuse Patient Records regulations: The Federal rules restrict any use of the information to criminally investigate or prosecute any alcohol or drug abuse patient.[facility] HospitalIn the event this information is protected by the Federal Confidentiality of Alcohol and Drug Abuse Patient Records regulations: The Federal rules restrict any use of the information to criminally investigate or prosecute any alcohol or drug abuse patient.[facility] HospitalIn the event this information is protected by the Federal Confidentiality of Alcohol and Drug Abuse Patient Records regulations: The Federal rules restrict any use of the information to criminally investigate or prosecute any alcohol or drug abuse patient.[facility] HospitalIn the event this information is protected by the Federal Confidentiality of Alcohol and Drug Abuse Patient Records regulations: The Federal rules restrict any use of the information to criminally investigate or prosecute any alcohol or drug abuse patient.[facility] HospitalIn the event this information is protected by the Federal Confidentiality of Alcohol and Drug Abuse Patient Records regulations: The Federal rules restrict any use of the information to criminally investigate or prosecute any alcohol or drug abuse patient.[facility] HospitalIn the event this information is protected by the Federal Confidentiality of Alcohol and Drug Abuse Patient Records regulations: The Federal rules restrict any use of the information to criminally investigate or prosecute any alcohol or drug abuse patient.[facility] HospitalIn the event this information is protected by the Federal Confidentiality of Alcohol and Drug Abuse Patient Records regulations: The Federal rules restrict any use of the information to criminally investigate or prosecute any alcohol or drug abuse patient.[facility] HospitalIn the event this information is protected by the Federal Confidentiality of Alcohol and Drug Abuse Patient Records regulations: The Federal rules restrict any use of the information to criminally investigate or prosecute any alcohol or drug abuse patient.[facility] HospitalIn the event this information is protected by the Federal Confidentiality of Alcohol and Drug Abuse Patient Records regulations: The Federal rules restrict any use of the information to criminally investigate or prosecute any alcohol or drug abuse patient.[facility] HospitalIn the event this information is protected by the Federal Confidentiality of Alcohol and Drug Abuse Patient Records regulations: The Federal rules restrict any use of the information to criminally investigate or prosecute any alcohol or drug abuse patient.[facility] HospitalIn the event this information is protected by the Federal Confidentiality of Alcohol and Drug Abuse Patient Records regulations: The Federal rules restrict any use of the information to criminally investigate or prosecute any alcohol or drug abuse patient.[facility] HospitalIn the event this information is protected by the Federal Confidentiality of Alcohol and Drug Abuse Patient Records regulations: The Federal rules restrict any use of the information to criminally investigate or prosecute any alcohol or drug abuse patient.[facility] HospitalIn the event this information is protected by the Federal Confidentiality of Alcohol and Drug Abuse Patient Records regulations: The Federal rules restrict any use of the information to criminally investigate or prosecute any alcohol or drug abuse patient.[facility] HospitalIn the event this information is protected by the Federal Confidentiality of Alcohol and Drug Abuse Patient Records regulations: The Federal rules restrict any use of the information to criminally investigate or prosecute any alcohol or drug abuse patient.[facility] HospitalIn the event this information is protected by the Federal Confidentiality of Alcohol and Drug Abuse Patient Records regulations: The Federal rules restrict any use of the information to criminally investigate or prosecute any alcohol or drug abuse patient.[facility] HospitalIn the event this information is protected by the Federal Confidentiality of Alcohol and Drug Abuse Patient Records regulations: The Federal rules restrict any use of the information to criminally investigate or prosecute any alcohol or drug abuse patient.[facility] HospitalIn the event this information is protected by the Federal Confidentiality of Alcohol and Drug Abuse Patient Records regulations: The Federal rules restrict any use of the information to criminally investigate or prosecute any alcohol or drug abuse patient.[facility] Reason for Visit (unrecogniz ed section and [...] RSPSE SPMTRY PRE&POST-BRNCDILAT ADMN Chencho Urbina MD [address] [place] [address] [facility] [place] [address] [place] [address] Referral ID Status Reason Start Date Expiration Date V isits Requested Visits Authorized [id number] Closed Auto-Generate d Referral 09/20/2022 10/20/2023 1 1 Reason Comments Results Appointment Reason Comments New Patient Evaluation Reason Comments 1 week f/u Left middle finger s welling-worse since GLADIS Reason Comments New Pain Specialty Diagnoses / Procedures Referred By Contac t Referred To Contact Orthopedics Diagnoses Unspecified deformity of left finger(s) Procedures CONSULT TO ORTHOPAEDICS OFFICE/OUTPATIENT NEW HIGH MDM 60-74 MINUTES Elisa Doherty APRN.RN TRANSITION [address] [place] [address] Referral ID Status Reason Start Date Expiration Date V isits Requested Visits Authorized [id number] Closed PCP Requested Referral 11/23/2022 11/23/2023 1 1 Reason Comments Thyroid Problem Specialty Diagnoses / Procedures Referred By Contac t Referred To Contact General Surgery Diagnoses Neck mass Procedures CONSULT TO GENERAL SURGERY OFFICE/OUTPATIENT [facility] 60-74 MINUTES Chencho Urbina MD [address] [place] [id number] Referral ID Status Reason Start Date Expiration Date V isits Requested Visits Authorized [id number] Closed PCP Requested Referral 11/02/2022 11/02/2023 1 1 Reason Comments Recheck 6 months Reason Comments Hyperparathyroidism Reason Comments Radiology CT Specialty Diagnoses / Procedures Referred By Contac t Referred To Contact CT IMAGING Diagnoses Neck mass Procedures CT NECK SOFT TISSUE W IVCON CT SOFT TISSUE NECK W/CONTRAST MATERIAL Cassandra Arshad PA-C [address] [place] [address] Ct Imaging [id number] Referral ID Status Reason Start Date Expiration Date V isits Requested Visits Authorized [id number] Closed Auto-Generate d Referral 10/19/2022 11/18/2023 1 [...] CT ANGIOGRAPHY NECK W/CONTRAST/NONCONTRAST Kierra Alfaro MD [address] [place] [address] Ct Imaging [id number] Referral ID Status Reason Start Date Expiration Date V isits Requested Visits Authorized [id number] Closed Auto-Generate d Referral 11/15/2023 06/14/2024 1 1 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 Referred By Contac t Referred To Contact Neurology / NEUROSURGERY Diagnoses follow up after CTA head/neck Procedures VIDEO SPEC EST Kierra Alfaro MD [address] [place] [address] Kierra Alfaro MD [address] [place] [address] Referral ID Status Reason Start Date Expiration Date Visits Requested Visits Authorized [id number] Pending Review OON/Self Pay Override 11/28/2023 03/07/2025 1 1 Reason Onset Date Comments Refill Request 01/06/2024 Reason Onset Date Comments Refill Request 01/14/2024 Reason Comments ER F/U [facility] Reason Comments Hospital F/U [facility] Reason Comments PT- [facility] HH- POC Reason Onset Date Comments Transition Of Care 02/17/2024 [facility], Discharge 02/16/24 Reason Comments Medication Problem Reason Comments Follow Up Hospital follow up Reason Comments Medication Question Reason Comments Follow Up Reason Onset Date Comments Transition Of Care 03/04/2024 [facility] Follow-up Day 17 Reason Onset Date Comments Transition Of Care 03/11/2024 [facility] Follow-up Day 24 Reason Comments [facility] HH, PT plan of care Reason [...] encounter (HCC) Procedures CONSULT TO ORTHOPAEDICS OFFICE/OUTPATIENT [facility] 60 MINUTES Chencho Urbina MD [address] [place] [address] Referral ID Status Reason Start Date Expiration Date V isits Requested Visits Authorized [id number] Closed PCP Requested Referral 02/20/2024 02/19/2025 1 [...] TIME W/IMAGE COMPLETE Cassandra Arshad PA-C [address] [place] [address] [place] [id number] Referral ID Status Reason Start Date Expiration Date V isits Requested Visits Authorized [id number] Closed Auto-Generate d Referral 06/18/2024 07/18/2025 1 [...] Care Teams (unrecognized sec tion and content) Drip Pumper Relationship Specialty Start Date End Date Chencho Urbina MD [address] [place] [address] [phone] PCP - General Family Practice 01/14/18 Drip Pumper Relationship Specialty Start Date End Date Chencho Urbina MD [address] [place] [address] [phone] PCP - General Family Practice 01/14/18 Drip Pumper Relationship Specialty Start Date End Date Chencho Urbina MD [address] [place] [address] [phone] PCP - General Family Practice 01/14/18 Drip Pumper Relationship Specialty Start Date End Date Chencho Urbina MD [address] [place] [phone] PCP - General Family Practice 01/14/18 Drip Pumper Relationship Specialty Start Date End Date Chencho Ubrina MD [address] [place] [phone] PCP - General Family Practice 01/14/18 Drip Pumper Relationship Specialty Start Date End Date Chencho Urbina MD [address] [place] [address] PCP - General Family Practice 01/14/18 Drip Pumper Relationship Specialty Start Date End Date Chencho Urbina MD [address] [facility] [place] [address] PCP - General Family Medicine 01/14/18 Drip Pumper Relationship Specialty Start Date End Date Chencho Urbina MD [address] [facility] [place] [address] PCP - General Family Medicine 01/14/18 Drip Pumper Relationship Specialty Start Date End Date Chencho Urbina MD [address] [place] [address], [place] [address] PCP - General Family Medicine 01/14/18 Drip Pumper Relationship Specialty Start Date End Date Chencho Urbina MD [address] [place] [address], [place] [address] PCP - General Family Medicine 01/14/18 Drip Pumper Relationship Specialty Start Date End Date Chencho Urbina MD [facility]0 [facility] [place] [address] PCP - General Family Medicine 01/14/18 Drip Pumper Relationship Specialty Start Date End Date Chencho Urbina MD [address] [place] [address], [place] [address] PCP - General Family Medicine 01/14/18 Drip Pumper Relationship Specialty Start Date End Date Chencho Urbina MD [facility] [place] [address] PCP - General Family Medicine 01/14/18 Drip Pumper Relationship Specialty Start Date End Date Chencho Urbina MD [address] [place] [address], [place] [address] PCP - General Family Medicine 01/14/18 Chencho Urbina MD [address] [place] [address], [place] [address] Referring Family Medicine 10/31/22 Drip Pumper Relationship Specialty Start Date End Date Chencho Urbina MD [address] [facility] [place] [address] PCP - General Family Medicine 01/14/18 Chencho Urbina MD [address] [facility] [place] [address] Referring Family Medicine 10/31/22 Drip Pumper Relationship Specialty Start Date End Date Chencho Urbina MD [address] [facility] [place] [address] PCP - General Family Medicine 01/14/18 Chencho Urbina MD [address] [facility] [place] [address] Referring Family Medicine 10/31/22 Drip Pumper Relationship Specialty Start Date End Date Chencho Urbina MD [address] [facility] [place] [address] PCP - General Family Medicine 01/14/18 Chencho Urbina MD [address] [facility] [place] [address] Referring Family Medicine 10/31/22 Drip Pumper Relationship Specialty Start Date End Date Chencho Urbina MD [address] [facility] [place] [address] PCP - General Family Medicine 01/14/18 Chencho Urbina MD [address] [facility] [place] [address] Referring Family Medicine 10/31/22 Drip Pumper Relationship Specialty Start Date End Date Chencho Urbina MD [address] [place] [address] PCP - General Family Medicine 01/14/18 Chencho Urbina MD [address] [facility] [place] [address] Referring Family Medicine 10/31/22 Drip Pumper Relationship Specialty Start Date End Date Chencho Urbina MD [address] [facility] [place] [address] PCP - General Family Medicine 01/14/18 Chencho Urbina MD [address] [facility] [place] [address] Referring Family Medicine 10/31/22 Drip Pumper Relationship Specialty Start Date End Date Chencho Urbina MD [address] [facility] [place] [address] PCP - General Family Medicine 01/14/18 Chencho Urbina MD [address] [facility] [place] [address] Referring Family Medicine 10/31/22 Drip Pumper Relationship Specialty Start Date End Date Chencho Urbina MD [address] [facility] [place] [address] PCP - General Family Medicine 01/14/18 Drip Pumper Relationship Specialty Start Date End Date Chencho Urbina MD [address] [facility] [place] [address] PCP - General Family Medicine 01/14/18 Chencho Urbina MD [address] [facility] [place] [address] Referring Family Medicine 10/31/22 Drip Pumper Relationship Specialty Start Date End Date Chencho Urbina MD [address] [place] [address] PCP - General Family Medicine 01/14/18 Chencho Urbina MD [address] [place] [address] Referring Family Medicine 10/31/22 Drip Pumper Relationship Specialty Start Date End Date Chencho Urbina MD [address] [place] [address] PCP - General Family Medicine 01/14/18 Chencho Urbina MD [address] [place] [address] Referring Family Medicine 10/31/22 Drip Pumper Relationship Specialty Start Date End Date Chencho Urbina MD [address] [place] [address] PCP - General Family Medicine 01/14/18 Chencho Urbina MD [address] [place] [address] Referring Family Medicine 10/31/22 Drip Pumper Relationship Specialty Start Date End Date Chencho Urbina MD [address] [place] [address] PCP - General Family Medicine 01/14/18 Chencho Urbina MD [address] [place] [address] Referring Family Medicine 10/31/22 Drip Pumper Relationship Specialty Start Date End Date Chencho Urbina MD [address] [facility] [place] [address] PCP - General Family Medicine 01/14/18 Chencho Urbina MD [address] [facility] [place] [address] Referring Family Medicine 10/31/22 Drip Pumper Relationship Specialty Start Date End Date Chencho Urbina MD [address] [facility] [place] [address] PCP - General Family Medicine 01/14/18 Chencho Urbina MD [address] [facility] [place] [address] Referring Family Medicine 10/31/22 Drip Pumper Relationship Specialty Start Date End Date Chencho Urbina MD [address] [facility] [place] [address] PCP - General Family Medicine 01/14/18 Chencho Urbina MD [address] [facility] [place] [address] Referring Family Medicine 10/31/22 Drip Pumper Relationship Specialty Start Date End Date Chencho Urbina MD [address] [facility] [place] [address] PCP - General Family Medicine 01/14/18 Chencho Urbina MD [address] [facility] [place] [address] Referring Family Medicine 10/31/22 Drip Pumper Relationship Specialty Start Date End Date Chencho Urbina MD [address] [place] [address] PCP - General Family Medicine 01/14/18 Chencho Urbina MD [address] [place] [address] Referring Family Medicine 10/31/22 Drip Pumper Relationship Specialty Start Date End Date Chencho Urbina MD [address] [place] [address] PCP - General Family Medicine 01/14/18 Chencho Urbina MD [address] [place] [address] Referring Family Medicine 10/31/22 Drip Pumper Relationship Specialty Start Date End Date Chencho Urbina MD [address] [place] [address] PCP - General Family Medicine 01/14/18 Chencho Urbina MD [address] [place] [address] Referring Family Medicine 10/31/22 Drip Pumper Relationship Specialty Start Date End Date Chencho Urbina MD [address] [place] [address] PCP - General Family Medicine 01/14/18 Chencho Urbina MD [address] [place] [address] Referring Family Medicine 10/31/22 Kaity Quintero, MILLICENT [address] [place] [address] Primary Care Dry Room Operator 02/17/24 Drip Pumper Relationship Specialty Start Date End Date Chencho Urbina MD [address] [facility] [place] [address] PCP - General Family Medicine 01/14/18 Chencho Urbina MD [address] [place] [address] Referring Family Medicine 10/31/22 Kaity Quintero, MILLICENT [address] [place] [address] Primary Care Dry Room Operator 02/17/24 Drip Pumper Relationship Specialty Start Date End Date Chencho Urbina MD [address] [place] [address] PCP - General Family Medicine 01/14/18 Chencho Urbina MD [address] [place] [address] Referring Family Medicine 10/31/22 Kaity Quintero, MILLICENT [address] [place] [address] Primary Care Dry Room Operator 02/17/24 Drip Pumper Relationship Specialty Start Date End Date Chencho Urbina MD [address] [place] [address] PCP - General Family Medicine 01/14/18 Chencho Urbina MD [address] [place] [address] Referring Family Medicine 10/31/22 Kaity Quintero, MILLICENT [address] [place] [address] Primary Care Dry Room Operator 02/17/24 Drip Pumper Relationship Specialty Start Date End Date Chencho Urbina MD [address] [place] [address] PCP - General Family Medicine 01/14/18 Chencho Urbina MD [address] [place] [address] Referring Family Medicine 10/31/22 Kaity Quintero, RN [address] [place] [address] Primary Care Dry Room Operator 02/17/24 Drip Pumper Relationship Specialty Start Date End Date Chencho Urbina MD [address] [place] [address] PCP - General Family Medicine 01/14/18 Chencho Urbina MD [address] [place] [address] Referring Family Medicine 10/31/22 Kaity Quintero, MILLICENT [address] [place] [address] Primary Care Dry Room Operator 02/17/24 Drip Pumper Relationship Specialty Start Date End Date Chencho Urbina MD [address] [place] [address] PCP - General Family Medicine 01/14/18 Chencho Urbina MD [address] [place] [address] Referring Family Medicine 10/31/22 Kaity Quintero, RN [address] [place] [address] Primary Care Dry Room Operator 02/17/24 Drip Pumper Relationship Specialty Start Date End Date Chencho Urbina MD [address] [place] [address] PCP - General Family Medicine 01/14/18 Chencho Urbina MD [address] [place] [address] Referring Family Medicine 10/31/22 Drip Pumper Relationship Specialty Start Date End Date Chencho Urbina MD [address] [place] [address] PCP - General Family Medicine 01/14/18 Chencho Urbina MD [address] [place] [address] Referring Family Medicine 10/31/22 Kaity Quintero, RN [address] [place] [address] Primary Care Dry Room Operator 02/17/24 Drip Pumper Relationship Specialty Start Date End Date Chencho Urbina MD [address] [place] [address] PCP - General Family Medicine 01/14/18 Chencho Urbina MD [address] [place] [address] Referring Family Medicine 10/31/22 Kaity Quintero, RN [address] [place] [address] Primary Care Dry Room Operator 02/17/24 Drip Pumper Relationship Specialty Start Date End Date Chencho Urbina MD [address] [place] [address] PCP - General Family Medicine 01/14/18 Chencho Urbina MD [address] [place] [address] Referring Family Medicine 10/31/22 Kaity Quintero, RN [address] [place] [address] Primary Care Dry Room Operator 02/17/24 Drip Pumper Relationship Specialty Start Date End Date Chencho Urbina MD [address] [facility] [place] [address] PCP - General Family Medicine 01/14/18 Chencho Urbina MD [address] [place] [address] Referring Family Medicine 10/31/22 Kaity Quintero, RN [address] [place] [address] Primary Care Dry Room Operator 02/17/24 03/17/24 Drip Pumper Relationship Specialty Start Date End Date Chencho Urbina MD [address] [place] [address] PCP - General Family Medicine 01/14/18 Chencho Urbina MD [address] [facility] [place] [address] Referring Family Medicine 10/31/22 Kaity Quintero, MILLICENT [address] [place] [address] Primary Care Dry Room Operator 02/17/24 03/17/24 Drip Pumper Relationship Specialty Start Date End Date Chencho Urbina MD [address] [place] [address] PCP - General Family Medicine 01/14/18 Chencho Urbina MD [address] [facility] [place] [address] Referring Family Medicine 10/31/22 Kaity Quintero, RN [address] [place] [address] Primary Care Dry Room Operator 02/17/24 03/17/24 Drip Pumper Relationship Specialty Start Date End Date Chencho Urbina MD [address] [place] [address] PCP - General Family Medicine 01/14/18 Chencho Urbina MD [address] [place] [address] Referring Family Medicine 10/31/22 Drip Pumper Relationship Specialty Start Date End Date Chencho Urbina MD [address] [place] [address] PCP - General Family Medicine 01/14/18 Chencho Urbina MD [address] [place] [address] Referring Family Medicine 10/31/22 Drip Pumper Relationship Specialty Start Date End Date Chencho Urbina MD [address] [place] [address] PCP - General Family Medicine 01/14/18 Chencho Urbina MD [address] [place] [address] Referring Family Medicine 10/31/22 Drip Pumper Relationship Specialty Start Date End Date Chencho Urbina MD [address] [place] [address] PCP - General Family Medicine 01/14/18 Chencho Urbina MD [address] [place] [address] Referring Family Medicine 10/31/22 Kaity Quintero, MILLICENT [address] [place] [address] Primary Care Dry Room Operator 02/17/24 03/17/24 Drip Pumper Relationship Specialty Start Date End Date Chencho Urbina MD [address] [facility] [place] [place] [address] PCP - General Family Medicine 01/14/18 Chencho Urbina MD [address] [facility] [place] [place] [address] Referring Family Medicine 10/31/22 Drip Pumper Relationship Specialty Start Date End Date Chencho Urbina MD [address] [facility] [place] [address] PCP - General Family Medicine 01/14/18 Chencho Urbina MD [address] [facility] [place] [address] Referring Family Medicine 10/31/22 Drip Pumper Relationship Specialty Start Date End Date Chencho Urbina MD [address] [facility] [place] [address] PCP - General Family Medicine 01/14/18 Chencho Urbina MD [address] [facility] [place] [address] Referring Family Medicine 10/31/22 Drip Pumper Relationship Specialty Start Date End Date Chencho Urbina MD [address] [facility] [place] [address] PCP - General Family Medicine 01/14/18 Chencho Urbina MD [address] [facility] [place] [address] Referring Family Medicine 10/31/22 Drip Pumper Relationship Specialty Start Date End Date Chencho Urbina MD [address] [facility] [place] [address] PCP - General Family Medicine 01/14/18 Chencho Urbina MD [address] [facility] [place] [address] Referring Family Medicine 10/31/22 Elisa Doherty, ARNAUD.RN TRANSITION [address] [place] [address] Visual Stylist Family Medicine 05/16/24 Cassandra Arshad PA-C [address] [place] [address] Visual Stylist Family [facility] 05/16/24 Drip Pumper Relationship Specialty Start Date End Date Chencho Urbina MD [address] [place] [address] PCP - General Family Medicine 01/14/18 Chencho Urbina MD [address] [place] [address] Referring Family Medicine 10/31/22 Elisa Doherty, ARNAUD.RN TRANSITION [address] [place] [address] Visual Stylist Family Medicine 05/16/24 Cassandra Arshad PA-C [address] [place] [address] Visual Stylist Family Medicine 05/16/24 Drip Pumper Relationship Specialty Start Date End Date Chencho Urbina MD [address] [place] [address] PCP - General Family Medicine 01/14/18 Chencho Urbina MD [address] [facility] [place] [address] Referring Family Medicine 10/31/22 Elisa Doherty APRN.RN TRANSITION [address] [place] [address] Visual Stylist Family Medicine 05/16/24 Cassandra Arshad PA-C [address] [place] [address] Visual Stylist Family Medicine 05/16/24 Drip Pumper Relationship Specialty Start Date End Date Chencho Urbina MD [address] [place] [address] PCP - General Family Medicine 01/14/18 Chencho Urbina MD [address] [place] [address] Referring Family Medicine 10/31/22 Elisa Doherty APRN.RN TRANSITION [address] [place] [address] Visual Stylist Family Medicine 05/16/24 Cassandra Arshad PA-C [address] [place] [address] Visual Stylist Family Medicine 05/16/24 Drip Pumper Relationship Specialty Start Date End Date Chencho Urbina MD [address] [place] [address] PCP - General Family Medicine 01/14/18 Chencho Urbina MD [address] [place] [address] Referring Family Medicine 10/31/22 Elisa Doherty APRN.RN TRANSITION [address] [place] [address] Visual Stylist Family Medicine 05/16/24 Cassandra Arshad PA-C [address] [facility] [place] [address] Visual Stylist Family Medicine 05/16/24 Drip Pumper Relationship Specialty Start Date End Date Chencho Urbina MD [address] [facility] [place] [address] PCP - General Family Medicine 01/14/18 Chencho Urbina MD [address] [facility] [place] [address] Referring Family Medicine 10/31/22 Elisa Doherty, ARNAUD.RN TRANSITION [address] [facility] [place] [address] Visual Stylist Family Medicine 05/16/24 Cassandra Arshad PA-C [address] [facility] [place] [address] Visual Stylist Family Medicine 05/16/24 Drip Pumper Relationship Specialty Start Date End Date Chencho Urbina MD [address] [facility] [place] [address] PCP - General Family Medicine 01/14/18 Chencho Urbina MD [address] [facility] [place] [address] Referring Family Medicine 10/31/22 Elisa Doherty APRN.RN TRANSITION [address] [facility] [place] [address] Visual Stylist Family Medicine 05/16/24 Cassandra Arshad PA-C [address] [place] [address] Visual Stylist Family [facility] 05/16/24 Drip Pumper Relationship Specialty Start Date End Date Chencho Urbina MD [address] [place] [address] PCP - General Family Medicine 01/14/18 Chencho Urbina MD [address] [place] [address] Referring Family Medicine 10/31/22 Elisa Doherty APRN.RN TRANSITION [address] [place] [address] Visual Stylist Family [facility] 05/16/24 Cassandra Arshad PA-C [address] [place] [address] [facility]/16[facility] Drip Pumper Relationship Specialty Start Date End Date Chencho Urbina MD [address] [place] [address] PCP - General Family Medicine 01/14/18 Chencho Urbina MD [address] [place] [address] Referring Family Medicine 10/31/22 Elisa Doherty APRN.RN TRANSITION [address] [place] [address] Visual Stylist Family Medicine 05/16/24 Cassandra Arshad PA-C [address] [facility] [place] [address] Visual Stylist Family Medicine 05/16/24 Drip Pumper Relationship Specialty Start Date End Date Chencho Urbina MD [address] [facility] [place] [address] PCP - General Family Medicine 01/14/18 Chencho Urbina MD [address] [place] [address] Referring Family Medicine 10/31/22 Elisa Doherty APRN.RN TRANSITION [address] [place] [address] Visual Stylist Family Medicine 05/16/24 Cassandra Arshad PA-C [address] [place] [address] Visual Stylist Family [facility] 05/16/24 Drip Pumper Relationship Specialty Start Date End Date Chencho Urbina MD [address] [place] [address] PCP - General Family Medicine 01/14/18 Chencho Urbina MD [address] [facility] [place] [address] Referring Family Medicine 10/31/22 Elisa Doherty APRN.RN TRANSITION [address] [place] [address] Visual Stylist Family Medicine 05/16/24 Cassandra Arshad PA-C [address] [place] [address] Visual Stylist Family Medicine 05/16/24 Drip Pumper Relationship Specialty Start Date End Date Chencho Urbina MD [address] [place] [address] PCP - General Family Medicine 01/14/18 Chencho Urbina MD [address] [place] [address] Referring Family Medicine 10/31/22 Elisa Doherty, TEAM LEADER/RESEARCH PSYCHOLOGIST.RN TRANSITION [address] [place] [address] Visual Stylist Family Medicine 05/16/24 Cassandra Arshad PA-C [address] [place] [address] Visual Stylist Family Medicine 05/16/24 Drip Pumper Relationship Specialty Start Date End Date Chencho Urbina MD [address] [place] [address] PCP - General Family Medicine 09/14/24 Chencho Urbina MD [address] [place] [address] Referring Family Medicine 10/31/22 Elisa Doherty, TEAM LEADER/RESEARCH PSYCHOLOGIST.RN TRANSITION [address] [place] [address] Visual Stylist Family Medicine 05/16/24 Cassandra Arshad PA-C [address] [place] [address] Visual Stylist Family Medicine 05/16/24 Drip Pumper Relationship Specialty Start Date End Date Chencho Urbina MD [address] [place] [address] PCP - General Family Medicine 09/14/24 Chencho Urbina MD [address] [place] [address] Referring Family Medicine 10/31/22 Elisa Doherty APRN.RN TRANSITION [address] [place] [address] Visual Stylist Family Medicine 05/16/24 Cassandra Arshad PA-C [facility] [place] [address] Visual Stylist Family Medicine 05/16/24 Drip Pumper Relationship Specialty Start Date End Date Chencho Urbina MD [address] [place] [address] PCP - General Family Medicine 09/14/24 Chencho Urbina MD [facility] [place] [address] Referring Family Medicine 10/31/22 Elisa Doherty, ARNAUD.RN TRANSITION [facility] [place] [address] Visual Stylist Family Medicine 05/16/24 Cassandra Arshad PA-C [address] [place] [address] Visual Stylist Family Medicine 05/16/24 Drip Pumper Relationship Specialty Start Date End Date Chencho Urbina MD [address] [place] [address] PCP - General Family Medicine 09/14/24 Chencho Urbina MD [address] [place] [address] Referring Family Medicine 10/31/22 Elisa Doherty APRN.RN TRANSITION [address] [place] [address] Visual Stylist Family Medicine 05/16/24 Cassandra Arshad PA-C [address] [place] [address] Visual Stylist Family Medicine 05/16/24 Drip Pumper Relationship Specialty Start Date End Date Chencho Urbina MD [address] [place] [address] PCP - General Family Medicine 09/14/24 Chencho Urbina MD [facility] [place] [address] Referring Family Medicine 10/31/22 Elisa Doherty APRN.RN TRANSITION [address] [place] [address] Visual Stylist Family Medicine 05/16/24 Cassandra Arshad PA-C [address] [place] [address] Visual Stylist Family Medicine 05/16/24 Drip Pumper Relationship Specialty Start Date End Date Chencho Urbina MD [address] [place] [address] PCP - General Family Medicine 01/14/18 09/13/24 Chencho Urbina MD [address] [place] [address] PCP - General Family Medicine 09/14/24 Chencho Urbina MD [address] [place], [place] [address] Referring Family Medicine 10/31/22 Elisa Doherty APRN.RN TRANSITION [address] [place], [place] [address] Visual Stylist Family Medicine 05/16/24 10/25/24 Cassandra Arshad PA-C [address] [place] [address] Visual Stylist Family [facility] 05/16/24 Drip Pumper Relationship Specialty Start Date End Date Chencho Urbina MD [address] [place] [address] PCP - General Family Medicine 09/14/24 Chencho Urbina MD [address] [place] [address] Referring Family Medicine 10/31/22 Elisa Doherty APRN.RN TRANSITION [address] [place] [address] Visual Stylist Family Medicine 11/09/24 Cassandra Arshad PA-C [address] [place] [address] Visual Stylist Family Medicine 11/09/24 Team Status: Active Member [...] section and content) DATE CREATED AUTHOR 03/21/2023 [facility] DATE CREATED AUTHOR AUTHOR'S ORGANIZ ATION 12/27/2023 [facility] DATE CREATED AUTHOR AUTHOR'S ORGANIZ ATION 03/18/2024 [facility] DATE CREATED AUTHOR AUTHOR'S ORGANIZ ATION 11/03/2024 [facility] DATE CREATED AUTHOR AUTHOR'S ORGANIZ ATION 12/06/2024 [facility] Goals (unrecognized section and content) Goals [...] BE BASED ON THE PRIMARY CLINICAL RECORDS. [employer] provides no warranty or guarantee of the accuracy or completeness of information in this document.
[2024-12-21 09:24] LABS: Anion Gap 12 (5-15); BUN 14 mg/dL (4-19); BUN/Creat Ratio 11.5 RATIO (10-20); Calcium,Total 8.9 mg/dL (7.6-11.0); Carbon Dioxide 22.9 mmol/L (21.0-32.0); Chloride 103 mmol/L (98-108); Glucose 113 mg/dL (70-99); Magnesium 1.7 mg/dL (1.5-2.2); Potassium 3.8 mmol/L (3.3-5.1); Vitamin D,25 Hydroxy 61.2 ng/mL (30-100)
== END ==
PROVIDERS: PCP Family Medicine; Referring Provider Family Medicine; Visit Provider Family Medicine
DX: I10 Essential (primary) hypertension (principal)
CPT/HCPCS: 36415; 80048; 82306; 83735